=== PATIENT | female | born 1955 | race Caucasian/White ===

== ENCOUNTER 2017-02-09 00:36 | Inpatient (IN) | payer SELFPAY ==
[~2017-02-09] VITALS: Ht 163.8 cm; Wt 84.0 kg
[~2017-02-09 00:36] MED LIST: AMOX500C PO; DOCU100C5 PO; LEVO50TA5 PO; LISI1TAB7 PO; OXYC1TAB8 PO; POLY17PO29 PO; PROC10TA57 PO; ZOLP5TAB PO
[2017-02-09 01:22] LABS: BILIRUBIN,URINE NEGATIVE (NEG); GLUCOSE,URINE NEGATIVE (NEG); NITRITE,URINE NEGATIVE (NEG); PH,URINE 7.5; PROTEIN,URINE NEGATIVE (NEG-TRACE)
[2017-02-09 01:22] LABS: BASO # 0.1 x10^3/uL (0.0-0.2); BASO % 1 % (0-3); EOS % 3 % (0-3); HEMATOCRIT 39.2 % (36.0-47.0); HEMOGLOBIN 12.7 g/dL (12.0-15.5); LYMPH # 2.6 x10^3/uL (1.0-4.8); LYMPH % 16 % (24-48); MEAN CORPUSCULAR HEMOGLOBIN 28 pg (25-35); MEAN CORPUSCULAR HGB CONC 33 g/dL (31-37); MEAN CORPUSCULAR VOLUME 85 fL (79-100); MONO % 6 % (0-9); NEUT % 75 % (31-73); PLATELET COUNT 587 x10^3/uL (140-400); RED BLOOD COUNT 4.61 x10^6/uL (3.50-5.40); RED CELL DISTRIBUTION WIDTH 17.4 % (11.5-14.5); WHITE BLOOD COUNT 16.6 x10^3/uL (4.0-11.0)
[2017-02-09 01:30] LABS: CALCIUM 8.9 mg/dL (8.5-10.1); CREATININE 0.7 mg/dL (0.6-1.0); GFR 85.6; POTASSIUM 4.1 mmol/L (3.5-5.1)
[2017-02-09] MEDS ORDERED: ONDANSETRON PF 4 MG/2 ML VIAL. IV ONE (01:30)
[2017-02-09] MEDS ORDERED: IV NORMAL SALINE 1000ML BAG 1,000 ML IV ONE (01:30)
[2017-02-09 01:33] LABS: BACTERIA,URINE FEW /HPF (0-FEW); RBC,URINE OCC /HPF (0-2); SQUAMOUS EPITHELIAL CELL,UR MOD /LPF
[2017-02-09 01:36] LABS: ALBUMIN 3.4 g/dL (3.4-5.0); ALBUMIN/GLOBULIN RATIO 1.1 (1.0-1.7); TOTAL BILIRUBIN 0.5 mg/dL (0.2-1.0); TOTAL PROTEIN 6.6 g/dL (6.4-8.2)
[2017-02-09] MEDS: fentaNYL PF VIAL 100 MCG/2 ML VIAL IV PRN ×2 (01:38→01:59)
[2017-02-09] MEDS ORDERED: CONTRAST GIVEN MC PRN (01:45)
[2017-02-09] MEDS ORDERED: IOHEXOL 300 MG/ML 75 ML VIAL IV ONE (01:45)
--- NOTE | 2017-02-09 01:47 | RAD ---
CT abdomen and pelvis with contrast Indication: Abdominal pain status post colectomy on 01/26/2017. Axial imaging through the abdomen pelvis was performed after the administration of intravenous contrast. No prior studies are available for comparison. The lung bases are clear. No discrete liver mass is detected. The gallbladder is surgically absent. The pancreas and spleen are unremarkable. No adrenal mass is identified. The kidneys are unremarkable. Aorta and iliac vessels are heavily calcified but not aneurysmal. There appear to be postsurgical changes of a right and transverse colectomy. The descending colon as well as the sigmoid colon appear to be present and decompressed. There appears to be an anastomoses in the left upper abdomen. There appear to be diffusely dilated and fluid-filled small bowel loops. There is moderate fluid-filled distention of the stomach. No free fluid is seen. No fluid collection is identified to suggest abscess. There is no free air. No pneumatosis is identified. Impression: Postsurgical changes of right and transverse colectomy. There are diffusely dilated fluid-filled small bowel loops and stomach traced to the level of the anastomosis in the left abdomen. The possibility of an anastomotic stricture cannot be entirely excluded. No definite abscess or free air is detected. Electronically signed by: Antony Tony MD (Feb 09, 2017 01:45:49)
[2017-02-09] MEDS ORDERED: ONDANSETRON PF 4 MG/2 ML VIAL. IV PRN (02:45)
[2017-02-09] MEDS ORDERED: IV NORMAL SALINE 1000ML BAG 1,000 ML IV SCH ×3 (02:45→20:00)
[2017-02-09 03:45] VITALS: BP 154/55
[2017-02-09] MEDS: MORPHINE SULFATE 4 MG/ML DISP.SYRIN. IV PRN ×4 (03:55→20:24)
--- NOTE | 2017-02-09 04:36 | PHYS DOC ---
Past Medical History Past Medical History: Cancer, Hypertension Additional Past Medical Histor: thyroid disease, AML "survivor", STAGE 4 COLON CA Past Surgical History: Appendectomy, Cholecystectomy, Hysterectomy, Tonsillectomy Additional Past Surgical Histo: BOWEL RESECTION Alcohol Use: None Drug Use: None Adult General Chief Complaint Chief Complaint: NAUSEA/VOMITING/DIARRHA HPI HPI Patient is a 61 year old female who presents with abdominal pain. The patient is status post partial colectomy by Dr. Balderas on 01/27. She complains of severe right-sided abdominal pain associated with too many episodes of vomiting to quantify. States she is unable to tolerate any oral intake and has severe weakness diffusely. Denies fevers or chills, hematemesis, hematochezia or melena , diarrhea, dysuria or hematuria. Has not had bowel movement since time of hospital discharge. Surgery performed for colon cancer, has not yet undergone any chemotherapy or radiation. Also has history of appendectomy, cholecystectomy , hysterectomy. PCP is Dr. Smith. Review of Systems Review of Systems Constitutional: Denies fever or chills Eyes: Denies change in visual acuity HENT: Denies nasal congestion or sore throat Respiratory: Denies cough or shortness of breath Cardiovascular: Denies chest pain or edema GI: Reports abdominal pain, nausea, vomiting, denies bloody stools or diarrhea : Denies dysuria or hematuria Musculoskeletal: Denies back pain or joint pain Integument: Denies rash or skin lesions Neurologic: Denies headache, focal weakness or sensory changes Current Medications Current Medications Current Medications Medications (Trade) Dose Ordered Sig/Nneka Start Time Stop Time Status Last Admin Dose Admin Fentanyl Citrate (Fentanyl 2ml Vial) 50 mcg PRN Q15MIN PRN 02/09/17 01:30 02/10/17 01:29 02/09/17 01:59 50 MCG Info (Do NOT chart on this entry -- for MONITORING) 1 each PRN DAILY PRN 02/09/17 01:45 02/11/17 01:44 Iohexol (Omnipaque 300 Mg/ml) 75 ml 1X ONCE 02/09/17 01:45 02/09/17 01:46 DC 02/09/17 01:36 75 ML Ondansetron HCl (Zofran) 4 mg 1X ONCE 02/09/17 01:30 02/09/17 01:31 DC 02/09/17 01:38 4 MG Sodium Chloride (Iv Sodium Chloride 0.9% 1000ml Bag) 1,000 ml @ 1,000 mls/hr 1X ONCE 02/09/17 01:30 02/09/17 02:29 DC 02/09/17 01:38 1,000 MLS/HR Allergies Allergies Allergies Coded Allergies Type Severity Reaction Last Updated Verified sulfamethoxazole Allergy Mild GI UPSET 01/27/17 Yes trimethoprim Allergy Mild GI UPSET 01/27/17 Yes Physical Exam Physical Exam Constitutional: Well developed, well nourished, appears uncomfortable and ill HENT: Normocephalic, atraumatic, bilateral external ears normal, oropharynx dry , nose normal. Eyes: conjunctiva normal, no discharge. Neck: supple, no stridor. Cardiovascular: RRR, no murmurs, no edema. Lungs & Thorax: LCTAB, no wheezing, no respiratory distress. Abdomen: Hypoactive bowel sounds, soft, mild diffuse tenderness, greatest to right upper and right lower quadrant, voluntary guarding present throughout the abdomen, no rebound tenderness, no masses or pulsatile masses, nondistended. Midline abdominal incision is clean, dry, intact, no erythema, warmth, or swelling, moderate amount of serous drainage from the inferior portion of the incision Skin: Warm, dry, no erythema, no rash. Back: No CVA tenderness. Extremities: No tenderness, no edema. Neurologic: Alert and oriented X 3, no focal deficits noted. Psychologic: Affect normal, judgement normal, mood normal. Current Patient Data Vital Signs Vital Signs Date Time Temp Pulse Resp B/P Pulse Ox O2 Delivery O2 Flow Rate FiO2 02/09/17 02:07 70 23 147/68 91 Room Air 02/09/17 01:04 97.9 97.9 Lab Values Laboratory Tests Test 02/09/17 00:43 02/09/17 00:56 Urine Collection Type Unknown Urine Color Yellow Urine Clarity Clear Urine pH 7.5 Urine Specific [place] 1.015 Urine Protein Negativemg/dL (NEG-TRACE) Urine Glucose (UA) Negativemg/dL (NEG) Urine Ketones (Stick) Tracemg/dL (NEG) Urine Blood Negative (NEG) Urine Nitrite Negative (NEG) Urine Bilirubin Negative (NEG) Urine Urobilinogen Dipstick 1.0mg/dL (0.2 mg/dL) Urine Leukocyte Esterase Negative (NEG) Urine RBC Occ/HPF (0-2) Urine WBC 5-10/HPF (0-4) Urine Squamous Epithelial Cells Mod/LPF Urine Bacteria Few/HPF (0-FEW) Urine Mucus Mod/LPF White Blood Count 16.6x10^3/uL (4.0-11.0) H Red Blood Count 4.61x10^6/uL (3.50-5.40) Hemoglobin 12.7g/dL (12.0-15.5) Hematocrit 39.2% (36.0-47.0) Mean Corpuscular Volume 85fL (79-100) Mean Corpuscular Hemoglobin 28pg (25-35) Mean Corpuscular Hemoglobin Concent 33g/dL (31-37) Red Cell Distribution Width 17.4% (11.5-14.5) H Platelet Count 587x10^3/uL (140-400) H Neutrophils (%) (Auto) 75% (31-73) H Lymphocytes (%) (Auto) 16% (24-48) L Monocytes (%) (Auto) 6% (0-9) Eosinophils (%) (Auto) 3% (0-3) Basophils (%) (Auto) 1% (0-3) Neutrophils # (Auto) 12.4x10^3uL (1.8-7.7) H Lymphocytes # (Auto) 2.6x10^3/uL (1.0-4.8) Monocytes # (Auto) 0.9x10^3/uL (0.0-1.1) Eosinophils # (Auto) 0.5x10^3/uL (0.0-0.7) Basophils # (Auto) 0.1x10^3/uL (0.0-0.2) Sodium Level 135mmol/L (136-145) L Potassium Level 4.1mmol/L (3.5-5.1) Chloride Level 96mmol/L (98-107) L Carbon Dioxide Level 29mmol/L (21-32) Anion Gap 10 (6-14) Blood Urea Nitrogen 18mg/dL (7-20) Creatinine 0.7mg/dL (0.6-1.0) Estimated GFR (Cockcroft-Gault) 85.6 BUN/Creatinine Ratio 26 (6-20) H Glucose Level 101mg/dL (70-99) H Lactic Acid Level 1.4mmol/L (0.4-2.0) Calcium Level 8.9mg/dL (8.5-10.1) Total Bilirubin 0.5mg/dL (0.2-1.0) Aspartate Amino Transferase (AST) 27U/L (15-37) Alanine Aminotransferase (ALT) 48U/L (14-59) Alkaline Phosphatase 70U/L (46-116) Troponin I Quantitative < 0.017ng/mL (0.000-0.055) Total Protein 6.6g/dL (6.4-8.2) Albumin 3.4g/dL (3.4-5.0) Albumin/Globulin Ratio 1.1 (1.0-1.7) Lipase 66U/L (73-393) L Laboratory Tests 02/09/17 00:56 Laboratory Tests 02/09/17 00:56 EKG EKG Interpreted by me: Normal sinus rhythm rate 80, no acute ST or T wave changes, normal intervals, PVCs, significant artifact throughout [] Radiology/Procedures Radiology/Procedures PROCEDURE: CT ABD PELV W/ IV CONTRST ONLY CT abdomen and pelvis with contrast Indication: Abdominal pain status post colectomy on 01/26/2017. Axial imaging through the abdomen pelvis was performed after the administration of intravenous contrast. No prior studies are available for comparison. The lung bases are clear. No discrete liver mass is detected. The gallbladder is surgically absent. The pancreas and spleen are unremarkable. No adrenal mass is identified. The kidneys are unremarkable. Aorta and iliac vessels are heavily calcified but not aneurysmal. There appear to be postsurgical changes of a right and transverse colectomy. The descending colon as well as the sigmoid colon appear to be present and decompressed. There appears to be an anastomoses in the left upper abdomen. There appear to be diffusely dilated and fluid-filled small bowel loops. There is moderate fluid-filled distention of the stomach. No free fluid is seen. No fluid collection is identified to suggest abscess. There is no free air. No pneumatosis is identified. Impression: Postsurgical changes of right and transverse colectomy. There are diffusely dilated fluid-filled small bowel loops and stomach traced to the level of the anastomosis in the left abdomen. The possibility of an anastomotic stricture cannot be entirely excluded. No definite abscess or free air is detected. Electronically signed by: Antony Tony MD (Feb 09, 2017 01:45:49) DICTATED and SIGNED BY: ANTONY TONY MD DATE: 02/09/17 0145[] Course & Med Decision Making Course & Med Decision Making Pertinent Labs and Imaging studies reviewed. (See chart for details) The patient presents with abdominal pain and vomiting postoperatively. Gave IV fluids, Zofran, pain medication. She was able to rest slightly more comfortably. Obtained labs which show leukocytosis. Obtained CT of the abdomen and pelvis which shows possible anastomotic stricture. Consulted with Dr. Mayes on-call for general surgery who recommends placement of NG tube and keep nothing by mouth, will consult in the morning. Discussed results with the patient who agrees with plan for admission. NG tube placed by RN. Discussed with Dr. kemp who agrees to admit to inpatient status. The patient is admitted in stable condition. [] Dragon Disclaimer Dragon Disclaimer This electronic medical record was generated, in whole or in part, using a voice recognition dictation system. Departure Departure Impression: Primary Impression: Postoperative abdominal pain Additional Impressions: Colon cancer Leukocytosis Disposition: ADMITTED INPATIENT Admitting Physician: Cassandra Kemp Condition: STABLE Referrals: ZEHRA SMITH (PCP) Problem Qualifiers SAMMIE TARIQ MD Feb 09, 2017 04:36
--- NOTE | 2017-02-09 06:12 | EKG ---
[facility] [address] [place] [address] Test Date: 2017-02-09 Test Time: 00:59:58 Pat Name: CATALINO COBOS Department: Room: 2 Gender: F [employer] Work[employer]: : 1955 Requested By: SAMMIE TARIQ Order Number: [id number] Reading MD: Vane Porter Measurements Intervals [place] Rate: 80 P: 36 DC: 136 QRS: 35 QRSD: 80 T: 18 QT: 410 QTc: 477 Interpretive Statements SINUS RHYTHM QRS(T) CONTOUR ABNORMALITY CONSISTENT WITH SEPTAL INFARCT AGE UNDETERMINED Electronically Signed On 02-10-2017 17:29:23 CDT by Vane Porter
[2017-02-09 07:10] VITALS: BP 165/64
[2017-02-09] MEDS: FAMOTIDINE 20 MG/2 ML VIAL IVP SCH ×2 (08:06→22:50)
[2017-02-09] MEDS: LEVOTHYROXINE SODIUM 25 MCG in IV NORMAL SALINE 50ML 5 ML IVP SCH (08:35)
--- NOTE | 2017-02-09 10:06 | PDOC1 ---
History and Physical Date of Admission Date of Admission DATE: 02/09/17 TIME: 10:03 Identification/Chief Complaint Chief Complaint vomiting, abd pain Problems: Source Source: Chart review, Patient History of Present Illness History of Present Illness 61 y.o female who was just dcd yesterday after having colon resection for Stage IV colon cancer, with mesenteric involvement, extensive omental caking, diffuse metastasis throughout the peritoneal cavity, comes back in bec of emesis,multiple times at home, abd pain, GS called in, recommended NGT and is currently suctioning blackish gastric aspirate Pt looks uncomfortable from NGT but not in distress Imaging I jason reviewed: PROCEDURE: CT ABD PELV W/ IV CONTRST ONLY CT abdomen and pelvis with contrast Indication: Abdominal pain status post colectomy on 01/26/2017. Axial imaging through the abdomen pelvis was performed after the administration of intravenous contrast. No prior studies are available for comparison. The lung bases are clear. No discrete liver mass is detected. The gallbladder is surgically absent. The pancreas and spleen are unremarkable. No adrenal mass is identified. The kidneys are unremarkable. Aorta and iliac vessels are heavily calcified but not aneurysmal. There appear to be postsurgical changes of a right and transverse colectomy. The descending colon as well as the sigmoid colon appear to be present and decompressed. There appears to be an anastomoses in the left upper abdomen. There appear to be diffusely dilated and fluid-filled small bowel loops. There is moderate fluid-filled distention of the stomach. No free fluid is seen. No fluid collection is identified to suggest abscess. There is no free air. No pneumatosis is identified. Impression: Postsurgical changes of right and transverse colectomy. There are diffusely dilated fluid-filled small bowel loops and stomach traced to the level of the anastomosis in the left abdomen. The possibility of an anastomotic stricture cannot be entirely excluded. No definite abscess or free air is detected. Electronically signed by: Antony Tony MD (Feb 09, 2017 01:45:49) Past Medical History Cardiovascular: HTN Pulmonary: No pertinent hx GI: No pertinent hx Heme/Onc: Cancer Psych: Other Renal/: No pertinent hx Endocrine: Hypothyroidism Past Surgical History Past Surgical History: Colon Resection Family History Family History: No Significant Social History Smoke: No ALCOHOL: none Drugs: None Current Problem List Problem List Problems Medical Problems: (1) Colon cancer Status: Acute (2) Leukocytosis Status: Acute (3) Postoperative abdominal pain Status: Acute Problems: Current Medications Current Medications Current Medications Sodium Chloride (Iv Sodium Chloride 0.9% 1000ml Bag) 1,000 ml @ 1,000 mls/hr 1X ONCE IV Last administered on 02/09/17 01:38; Start 02/09/17 at 01:30; Stop 02/09/17 at 02:29; Status DC Ondansetron HCl (Zofran) 4 mg 1X ONCE IV Last administered on 02/09/17 01:38 ; Start 02/09/17 at 01:30; Stop 02/09/17 at 01:31; Status DC Fentanyl Citrate (Fentanyl 2ml Vial) 50 mcg PRN Q15MIN PRN IV PAIN GREATER THAN 3/10 Last administered on 02/09/17 01:59; Start 02/09/17 at 01:30; Stop at 07:41; Status DC Iohexol (Omnipaque 300 Mg/ml) 75 ml 1X ONCE IV Last administered on 02/09/17 01:36; Start 02/09/17 at 01:45; Stop 02/09/17 at 01:46; Status DC Info (Do NOT chart on this entry -- for MONITORING) 1 each PRN DAILY PRN MC SEE COMMENTS; Start 02/09/17 at 01:45; Stop 02/11/17 at 01:44 Ondansetron HCl (Zofran) 4 mg PRN Q8HRS PRN IV NAUSEA/VOMITING Last administered on 02/09/17 03:55; Start 02/09/17 at 02:45; Stop 02/09/17 at 07:41 ; Status DC Morphine Sulfate 4 mg 4 mg PRN Q2HR PRN IV PAIN Last administered on 02/09/17 08:02; Start 02/09/17 at 02:45; Stop 02/10/17 at 02:44 Sodium Chloride (Iv Sodium Chloride 0.9% 1000ml Bag) 1,000 ml @ 125 mls/hr Q8H IV Last administered on 02/09/17 03:55; Start 02/09/17 at 02:45; Stop at 02:44 Ondansetron HCl (Zofran) 4 mg PRN Q6HRS PRN IV NAUSEA/VOMITING; Start 02/09/17 at 07:40 Fentanyl Citrate (Fentanyl 2ml Vial) 50 mcg PRN Q2HR PRN IV PAIN; Start at 07:45 Famotidine 20 mg 20 mg BID IVP Last administered on 02/09/17 08:06; Start at 09:00 Levothyroxine Sodium/Sodium Chloride (Synthroid/Iv Sodium Chloride 0.9% 50ml) 5 ml @ 100 mls/hr DAILY IVP Last administered on 02/09/17 08:35; Start 02/09/17 at 09:00 Active Scripts Active Compazine (Prochlorperazine Maleate) 10 Mg Tablet 10 Mg PO Q8HRS Docusate Sodium 100 Mg Capsule 100 Mg PO PRN DAILY PRN Oxycodon-Acetaminophen 7.5-325 (Oxycodone Hcl/Acetaminophen) 1 Each Tablet 1 Tab PO PRN Q4HRS PRN Miralax (Polyethylene Glycol 3350) 17 Gm Powd.pack 17 Gm PO PRN DAILY PRN Reported Ambien (Zolpidem Tartrate) 5 Mg Tablet 1 Tab PO QHS Lisinopril-Hctz 20-25 Mg Tab (Lisinopril/Hydrochlorothiazide) 1 Each Tablet 1 Tab PO DAILY Levothyroxine Sodium 50 Mcg Tablet 1 Tab PO DAILY Allergies Allergies: Coded Allergies: sulfamethoxazole (Verified Allergy, Mild, GI UPSET, 01/27/17) trimethoprim (Verified Allergy, Mild, GI UPSET, 01/27/17) ROS General: No: Appetite, Chills, Fatigue, Malaise, Night Sweats, Other PSYCHOLOGICAL ROS: No: Anxiety, Behavioral Disorder, Concentration difficultie , Decreased libido, Depression, Disorientation, Hallucinations, Hostility, Irritablity, Memory difficulties, Mood Swings, Obsessive thoughts, Other, Physical abuse, Sexual abuse, Sleep disturbances, Suicidal ideation Eyes: No Blurry vision, No Decreased vision, No Double vision, No Dry eyes, No Excessive tearing, No Eye Pain, No Itchy Eyes, No Loss of vision, No Other, No Photophobia, No Scotomata, No Uses contacts, No Uses glasses HEENT: No: Epistaxis, Heacaches, Hearing change, Nasal congestion, Nasal discharge, Oral lesions, Other, Sinus pain, Sneezing, Snoring, Sore Throat, Tinnitus, Vertigo, Visual Changes, Vocal changes ALLERGY AND IMMUNOLOGY: No: Hives, Insect Bite Sensitivity, Itchy/Watery Eyes, Nasal Congestion, Other, Post Nasal Drip, Seasonal Allergies Hematological and Lymphatic: No: Bleeding Problems, Blood Clots, Blood Transfusions, Brusing, Night Sweats, Other, Pallor, Swollen Lymph Nodes ENDOCRINE: No: Breast Changes, Galactorrhea, Hair Pattern Changes, Hot Flashes , Malaise/lethargy, Mood Swings, Other, Palpitations, Polydipsia/polyuria, Skin Changes, Temperature Intolerance, Unexpected Weight Changes Breast: No New/Changing Breast Lumps, No Nipple changes, No Nipple discharge, No Other Respiratory: No: Cough, Hemoptysis, Orthopnea, Other, Pleuritic Pain, SOB with excertion, Shortness of breath, Sputum Changes, Stridor, Tachypnea, Wheezing Cardiovascular: No Chest Pain, No Edema, No Lt Headedness, No Orthopnea, No Other, No Palpitations, No Paroxysmal Noc. Dyspnea Gastrointestinal: Yes Abdominal Pain, Yes Nausea, Yes Vomiting Genitourinary: No , No , No , No , No , No , No , No Discharge, No Dysuria, No Flank Pain, No Frequency, No Hematuria, No Incontinence, No Other, No Pain, No Retention, No Urgency Musculoskeletal: No Gait Disturbance, No Joint Pain, No Joint Stiffness, No Joint Swelling, No Muscle Pain, No Muscular Weakness, No Other, No Pain In:, No Swelling In: Neurological: No Behavorial Changes, No Bowel/Bladder ControlChng, No Confusion , No Dizziness, No Gait Disturbance, No Headaches, No Impaired Coord/balance, No Memory Loss, No Numbness/Tingling, No Other, No Seizures, No Speech Problems , No Tremors, No Visual Changes, No Weakness Skin: No Acne, No Dry Skin, No Eczema, No Hair Changes, No Lumps, No Mole Changes, No Mottling, No Nail Changes, No Other, No Pruritus, No Rash, No Skin Lesion Changes Physical Exam General: No acute distress, Other (looks uncomfortable from NGT) Lungs: Clear to auscultation, Normal air movement Heart: S1S2, RRR, no thrills, no rubs, no gallops, no murmurs Cardiovascular: S1, S2 Breasts: Normal Abdomen: Normal bowel sounds, Soft, No tenderness, No hepatosplenomegaly, No masses, Other (tenderness, wound healing well, no rebound or guarding, NGT draining) Rectal Exam: not examined PELVIC: Nml ext genitalia Extremities: No clubbing, No cyanosis, No edema, Normal pulses, No tenderness/ swelling Skin: No rashes, No breakdown, No significant lesion Neuro: Normal gait, Normal speech, Strength at 5/5 X4 ext, Normal tone, Sensation intact, Cranial nerves 3-12 NL, Reflexes 2+ Psych/Mental Status: Mental status NL, Mood NL Vitals Vitals Vital Signs Date Time Temp Pulse Resp B/P Pulse Ox O2 Delivery O2 Flow Rate FiO2 02/09/17 08:35 16 02/09/17 08:02 Room Air 02/09/17 07:10 98.2 79 165/64 94 98.2 Labs Labs Laboratory Tests Test 02/09/17 00:43 02/09/17 00:56 Urine Collection Type Unknown Urine Color Yellow Urine Clarity Clear Urine pH 7.5 Urine Specific [place] 1.015 Urine Protein Negativemg/dL (NEG-TRACE) Urine Glucose (UA) Negativemg/dL (NEG) Urine Ketones (Stick) Tracemg/dL (NEG) Urine Blood Negative (NEG) Urine Nitrite Negative (NEG) Urine Bilirubin Negative (NEG) Urine Urobilinogen Dipstick 1.0mg/dL (0.2 mg/dL) Urine Leukocyte Esterase Negative (NEG) Urine RBC Occ/HPF (0-2) Urine WBC 5-10/HPF (0-4) Urine Squamous Epithelial Cells Mod/LPF Urine Bacteria Few/HPF (0-FEW) Urine Mucus Mod/LPF White Blood Count 16.6x10^3/uL (4.0-11.0) Red Blood Count 4.61x10^6/uL (3.50-5.40) Hemoglobin 12.7g/dL (12.0-15.5) Hematocrit 39.2% (36.0-47.0) Mean Corpuscular Volume 85fL (79-100) Mean Corpuscular Hemoglobin 28pg (25-35) Mean Corpuscular Hemoglobin Concent 33g/dL (31-37) Red Cell Distribution Width 17.4% (11.5-14.5) Platelet Count 587x10^3/uL (140-400) Neutrophils (%) (Auto) 75% (31-73) Lymphocytes (%) (Auto) 16% (24-48) Monocytes (%) (Auto) 6% (0-9) Eosinophils (%) (Auto) 3% (0-3) Basophils (%) (Auto) 1% (0-3) Neutrophils # (Auto) 12.4x10^3uL (1.8-7.7) Lymphocytes # (Auto) 2.6x10^3/uL (1.0-4.8) Monocytes # (Auto) 0.9x10^3/uL (0.0-1.1) Eosinophils # (Auto) 0.5x10^3/uL (0.0-0.7) Basophils # (Auto) 0.1x10^3/uL (0.0-0.2) Sodium Level 135mmol/L (136-145) Potassium Level 4.1mmol/L (3.5-5.1) Chloride Level 96mmol/L (98-107) Carbon Dioxide Level 29mmol/L (21-32) Anion Gap 10 (6-14) Blood Urea Nitrogen 18mg/dL (7-20) Creatinine 0.7mg/dL (0.6-1.0) Estimated GFR (Cockcroft-Gault) 85.6 BUN/Creatinine Ratio 26 (6-20) Glucose Level 101mg/dL (70-99) Lactic Acid Level 1.4mmol/L (0.4-2.0) Calcium Level 8.9mg/dL (8.5-10.1) Total Bilirubin 0.5mg/dL (0.2-1.0) Aspartate Amino Transf (AST/SGOT) 27U/L (15-37) Alanine Aminotransferase (ALT/SGPT) 48U/L (14-59) Alkaline Phosphatase 70U/L (46-116) Troponin I Quantitative < 0.017ng/mL (0.000-0.055) Total Protein 6.6g/dL (6.4-8.2) Albumin 3.4g/dL (3.4-5.0) Albumin/Globulin Ratio 1.1 (1.0-1.7) Lipase 66U/L (73-393) Laboratory Tests Test 02/09/17 00:43 02/09/17 00:56 Urine Collection Type Unknown Urine Color Yellow Urine Clarity Clear Urine pH 7.5 Urine Specific [place] 1.015 Urine Protein Negativemg/dL (NEG-TRACE) Urine Glucose (UA) Negativemg/dL (NEG) Urine Ketones (Stick) Tracemg/dL (NEG) Urine Blood Negative (NEG) Urine Nitrite Negative (NEG) Urine Bilirubin Negative (NEG) Urine Urobilinogen Dipstick 1.0mg/dL (0.2 mg/dL) Urine Leukocyte Esterase Negative (NEG) Urine RBC Occ/HPF (0-2) Urine WBC 5-10/HPF (0-4) Urine Squamous Epithelial Cells Mod/LPF Urine Bacteria Few/HPF (0-FEW) Urine Mucus Mod/LPF White Blood Count 16.6x10^3/uL (4.0-11.0) Red Blood Count 4.61x10^6/uL (3.50-5.40) Hemoglobin 12.7g/dL (12.0-15.5) Hematocrit 39.2% (36.0-47.0) Mean Corpuscular Volume 85fL (79-100) Mean Corpuscular Hemoglobin 28pg (25-35) Mean Corpuscular Hemoglobin Concent 33g/dL (31-37) Red Cell Distribution Width 17.4% (11.5-14.5) Platelet Count 587x10^3/uL (140-400) Neutrophils (%) (Auto) 75% (31-73) Lymphocytes (%) (Auto) 16% (24-48) Monocytes (%) (Auto) 6% (0-9) Eosinophils (%) (Auto) 3% (0-3) Basophils (%) (Auto) 1% (0-3) Neutrophils # (Auto) 12.4x10^3uL (1.8-7.7) Lymphocytes # (Auto) 2.6x10^3/uL (1.0-4.8) Monocytes # (Auto) 0.9x10^3/uL (0.0-1.1) Eosinophils # (Auto) 0.5x10^3/uL (0.0-0.7) Basophils # (Auto) 0.1x10^3/uL (0.0-0.2) Sodium Level 135mmol/L (136-145) Potassium Level 4.1mmol/L (3.5-5.1) Chloride Level 96mmol/L (98-107) Carbon Dioxide Level 29mmol/L (21-32) Anion Gap 10 (6-14) Blood Urea Nitrogen 18mg/dL (7-20) Creatinine 0.7mg/dL (0.6-1.0) Estimated GFR (Cockcroft-Gault) 85.6 BUN/Creatinine Ratio 26 (6-20) Glucose Level 101mg/dL (70-99) Lactic Acid Level 1.4mmol/L (0.4-2.0) Calcium Level 8.9mg/dL (8.5-10.1) Total Bilirubin 0.5mg/dL (0.2-1.0) Aspartate Amino Transf (AST/SGOT) 27U/L (15-37) Alanine Aminotransferase (ALT/SGPT) 48U/L (14-59) Alkaline Phosphatase 70U/L (46-116) Troponin I Quantitative < 0.017ng/mL (0.000-0.055) Total Protein 6.6g/dL (6.4-8.2) Albumin 3.4g/dL (3.4-5.0) Albumin/Globulin Ratio 1.1 (1.0-1.7) Lipase 66U/L (73-393) VTE Prophylaxis Ordered VTE Prophylaxis Devices: Yes VTE Pharmacological Prophylaxi: Yes Assessment/Plan Assessment/Plan 1. Post op emesis, abd pain, possibe ileus, The possibility of an anastomotic stricture cannot be entirely excluded 2. Stage IV colon cancer, with mesenteric involvement, extensive omental caking, diffuse metastasis throughout the peritoneal cavity 3. SIRS POA< no sepsis 4. mod CPM 5. Anemia of malignancy Plan NPO, dec IVF to 100c./hr GS consulted NGT PPI IV Hold PO meds Jamin RN and pt KARL GONZALEZ MD Feb 09, 2017 10:06
--- NOTE | 2017-02-09 10:26 | ACF ---
Admit Criteria Forms Admit Criteria Forms Admit Criteria Forms ABDOMINAL PAIN Clinical Indications for Admission to Inpatient Care (Place 'X' for any and all applicable criteria): Admission is indicated for ANY ONE of the following(1)(2)(3)(4)(5): [X]I. Inpatient admission required rather than observation care (Also use Abdominal Pain: Observation Care, as appropriate) because of ANY ONE of the following: [ ]a) Severe pain requiring acute inpatient management [X]b) Identification of etiology/finding that requires inpatient care (eg, aortic dissection, free air) [ ]c) Absent bowel sounds with complete ileus(6) [ ]d) Suspected toxic megacolon [ ]e) Severe electrolyte abnormalities requiring inpatient care [ ]f) High fever or infection requiring inpatient admission as indicated by ANY ONE of following(7)(8): [ ] i) Appropriate outpatient or observational care antimicrobial treatment unavailable, not effective, or not feasible [ ] ii) Documented bacteremia [ ] iii) Temperature > 104.9 degrees F (oral) [ ] iv) T >103.1 F (oral) or < 96.8 F(rectal) that does not respond to all emergency treatment measures [ ]g) Signs of intestinal obstruction [B] [ ]h) Hemodynamic instability [ ]i) IV fluid to replace significant ongoing losses (greater than 3 L/m2 per day) (12)(13) [ ]j) Percutaneous or open drainage (eg, abscess, biliary tract ) procedures [ ]k) Parenteral nutrition regimen that must be implemented on inpatient basis [ ]l) Other condition,treatment or monitoring requiring inpatient admission. [ ]II. Peritoneal signs present [ ]III. Surgery needed that cannot be performed on an ambulatory basis. [ ]IV. Evaluation requires patient to not eat or drink for extended period ( eg, more than 24 hours). [ ]V. Contraindications and/or Inappropriate clinical situations for Observational Care in patients with abdominal pain, when ANY ONE of the following is required: [ ]a) Thorough evaluation is required to prevent catastrophic events due to delays in diagnosing (e.g.Mesenteric ischemia) 1,3 [ ]b) Patient with severe pathology or with chronic symptoms unlikely to improve in the ED stay (3) [ ]. General contraindications and/or Inappropriate clinical situations for Observational Care in patients with abdominal pain, when ANY ONE of the following is required: [ ]a) Prediction of prolongation of LOS based on ANY ONE of the following may be considered as a contraindication for observational care 2, 3, 4, 5, 6, 7, 8, 9, 10, 11 [ ]i) Age > 65 yrs. [ ]ii) Patient arriving by ambulance [ ]iii) Patient with high acuity [ ]iv) Patient requiring vital sign monitoring [ ]v) Patient on IV medication [ ]b) Systolic blood pressures 180mmHg 3,12 [ ]c) Patient with altered mental status including delirium and other alteration of consciousness, (3) [ ]d) Patient whose discharge disposition will be to a care home home or rehabilitation home should not be managed in Emergency Department Observation Unit. CMS rule requires 3 days hospital stay before such placement.3,13 [ ]e) Patient with failure to thrive due to broad array of etiologies 3,16,17 [ ]f) Inability to ambulate 3,14 Extended stay beyond goal length of stay may be needed for(2)(3): [ ]a) Persistent abdominal pain with suspected intra-abdominal process [ ]b) Diagnosed condition requiring continued stay (e.g., pancreatitis, complicated diverticulitis) [ ]c) Surgery (e.g., colectomy) The original [employer] content created by [employer] has been revised. The portions of the content which have been revised are identified through the use of italic text or in bold, and [facility] centerGo[facility] Formerly [facility] has neither reviewed nor approved the modified material.All other unmodified content is copyright [employer]. Please see references footnoted in the original [facility]formerly [facility] centerBeehive Industries edition 2016 JORGE L CHRISTIE Feb 09, 2017 10:26
[2017-02-09 11:00] VITALS: BP 142/65
--- NOTE | 2017-02-09 14:49 | PDOC ---
Provider Note Provider Note 61 yo readmitted with n/v and abd distention after colectomy. she is demanding that her ng be removed. she feels much better. no longer feels bloated. no abd pain. +flatus today. i advised against removal of ng but she insists and refuses further tx with ng. will comply with her treatment wish and dc ng. i did tell her that if she gets nauseated/vomits/bloated again, the only tx option is replacing the ng. abd soft nt mild distended alert, oriented. a/p colon cancer. s/p colectomy. suspect edema at anastamosis giving delayed recovery of gi function. cont npo. remove ng at pt's request--i feel she has the right to refuse ng treatment. HALINA NEVILLE MD Feb 09, 2017 14:49
[2017-02-09 15:10] VITALS: BP 158/57
[2017-02-09 19:58] VITALS: BP 126/58
[2017-02-09] MEDS: IV NORMAL SALINE 1000ML BAG 1,000 ML IV SCH (20:18)
[2017-02-09] MEDS: ONDANSETRON PF 4 MG/2 ML VIAL. IV PRN (20:24)
[2017-02-09 23:20] VITALS: BP 146/55
[2017-02-10] MEDS: fentaNYL PF VIAL 100 MCG/2 ML VIAL IV PRN ×4 (03:06→23:14)
[2017-02-10 03:55] LABS: BASO # 0.2 x10^3/uL (0.0-0.2); BASO % 1 % (0-3); EOS % 5 % (0-3); HEMATOCRIT 38.4 % (36.0-47.0); HEMOGLOBIN 12.7 g/dL (12.0-15.5); LYMPH % 23 % (24-48); MEAN CORPUSCULAR HEMOGLOBIN 28 pg (25-35); MEAN CORPUSCULAR HGB CONC 33 g/dL (31-37); MEAN CORPUSCULAR VOLUME 84 fL (79-100); MONO % 9 % (0-9); NEUT % 62 % (31-73); PLATELET COUNT 591 x10^3/uL (140-400); RED BLOOD COUNT 4.59 x10^6/uL (3.50-5.40); RED CELL DISTRIBUTION WIDTH 18.2 % (11.5-14.5)
[2017-02-10 04:16] LABS: CALCIUM 8.7 mg/dL (8.5-10.1); CREATININE 0.8 mg/dL (0.6-1.0); GFR 73.4; POTASSIUM 4.1 mmol/L (3.5-5.1)
[2017-02-10 07:00] VITALS: BP 162/62
[2017-02-10] MEDS: LEVOTHYROXINE SODIUM 25 MCG in IV NORMAL SALINE 50ML 5 ML IVP SCH (10:27)
[2017-02-10] MEDS: FAMOTIDINE 20 MG/2 ML VIAL IVP SCH (10:27)
[2017-02-10] MEDS: IV NORMAL SALINE 1000ML BAG 1,000 ML IV SCH (10:28)
[2017-02-10 11:00] VITALS: BP 155/64
--- NOTE | 2017-02-10 11:26 | RAD ---
AP abdomen radiograph 02/10/2017 Clinical history: Ileus. An AP portable supine digital radiograph of the abdomen/pelvis was obtained. Comparison study is dated 02/04/2017. The hemidiaphragms and lung bases are not included on the radiograph. Surgical clips are seen within the right upper quadrant of the abdomen consistent with a cholecystectomy. Nonspecific air distention of small bowel loops is seen throughout the abdomen which is not definitely changed. The air distention of the colon has improved. The osseous structures are unchanged. Impression: Nonspecific air distention of small bowel loops is seen throughout the abdomen essentially unchanged. The air distention of the colon has improved.
[2017-02-10] MEDS ORDERED: POLYETHYLENE GLYCOL 3350 17 GM PACKET. PO PRN (12:45)
[2017-02-10] MEDS ORDERED: DOCUSATE SODIUM 100 MG CAPSULE. PO PRN (12:45)
--- NOTE | 2017-02-10 12:46 | PDOC ---
PROGRESS NOTES Chief Complaint Chief Complaint 1. Post op emesis, abd pain, possibe ileus, The possibility of an anastomotic stricture cannot be entirely excluded 2. Stage IV colon cancer, with mesenteric involvement, extensive omental caking, diffuse metastasis throughout the peritoneal cavity 3. SIRS POA< no sepsis 4. mod CPM 5. Anemia of malignancy History of Present Illness History of Present Illness NGt out per pt request - yesterday Pt up in bed, looking better Has had 3 BMs today and feels better KUB shows resolution of pathology PLan: Trial fo clears dc IVF Resume pO home meds including synthroid If does well on diet then home rafael Vitals Vitals Vital Signs Date Time Temp Pulse Resp B/P Pulse Ox O2 Delivery O2 Flow Rate FiO2 02/10/17 11:00 98.3 65 20 155/64 97 Room Air 98.3 Physical Exam General: Alert, Oriented X3, Cooperative, No acute distress, Other (looks uncomfortable from NGT) Heart: Regular rate, Normal S1, Normal S2 Lungs: Clear, Other Abdomen: Normal bowel sounds, Soft, No tenderness, No hepatosplenomegaly, No masses, Other (tenderness, wound healing well, no rebound or guarding, NGT draining) Extremities: No clubbing, No cyanosis, No edema, Normal pulses, No tenderness/ swelling Skin: No rashes, No breakdown, No significant lesion Labs LABS Laboratory Tests Test 02/10/17 03:30 White Blood Count 13.0x10^3/uL (4.0-11.0) Red Blood Count 4.59x10^6/uL (3.50-5.40) Hemoglobin 12.7g/dL (12.0-15.5) Hematocrit 38.4% (36.0-47.0) Mean Corpuscular Volume 84fL (79-100) Mean Corpuscular Hemoglobin 28pg (25-35) Mean Corpuscular Hemoglobin Concent 33g/dL (31-37) Red Cell Distribution Width 18.2% (11.5-14.5) Platelet Count 591x10^3/uL (140-400) Neutrophils (%) (Auto) 62% (31-73) Lymphocytes (%) (Auto) 23% (24-48) Monocytes (%) (Auto) 9% (0-9) Eosinophils (%) (Auto) 5% (0-3) Basophils (%) (Auto) 1% (0-3) Neutrophils # (Auto) 8.1x10^3uL (1.8-7.7) Lymphocytes # (Auto) 3.0x10^3/uL (1.0-4.8) Monocytes # (Auto) 1.1x10^3/uL (0.0-1.1) Eosinophils # (Auto) 0.6x10^3/uL (0.0-0.7) Basophils # (Auto) 0.2x10^3/uL (0.0-0.2) Sodium Level 138mmol/L (136-145) Potassium Level 4.1mmol/L (3.5-5.1) Chloride Level 101mmol/L (98-107) Carbon Dioxide Level 28mmol/L (21-32) Anion Gap 9 (6-14) Blood Urea Nitrogen 20mg/dL (7-20) Creatinine 0.8mg/dL (0.6-1.0) Estimated GFR (Cockcroft-Gault) 73.4 Glucose Level 92mg/dL (70-99) Calcium Level 8.7mg/dL (8.5-10.1) Review of Systems Review of Systems neg 14 pt reviewed Assessment and Plan Assessmemt and Plan Problems Medical Problems: (1) Colon cancer Status: Acute (2) Leukocytosis Status: Acute (3) Postoperative abdominal pain Status: Acute Problems: Comment Review of Relevant I have reviewed the following items siena (where applicable) has been applied. Labs Laboratory Tests Test 02/09/17 00:43 02/09/17 00:56 02/10/17 03:30 Urine Collection Type Unknown Urine Color Yellow Urine Clarity Clear Urine pH 7.5 Urine Specific Herrin 1.015 Urine Protein Negativemg/dL (NEG-TRACE) Urine Glucose (UA) Negativemg/dL (NEG) Urine Ketones (Stick) Tracemg/dL (NEG) Urine Blood Negative (NEG) Urine Nitrite Negative (NEG) Urine Bilirubin Negative (NEG) Urine Urobilinogen Dipstick 1.0mg/dL (0.2 mg/dL) Urine Leukocyte Esterase Negative (NEG) Urine RBC Occ/HPF (0-2) Urine WBC 5-10/HPF (0-4) Urine Squamous Epithelial Cells Mod/LPF Urine Bacteria Few/HPF (0-FEW) Urine Mucus Mod/LPF White Blood Count 16.6x10^3/uL (4.0-11.0) 13.0x10^3/uL (4.0-11.0) Red Blood Count 4.61x10^6/uL (3.50-5.40) 4.59x10^6/uL (3.50-5.40) Hemoglobin 12.7g/dL (12.0-15.5) 12.7g/dL (12.0-15.5) Hematocrit 39.2% (36.0-47.0) 38.4% (36.0-47.0) Mean Corpuscular Volume 85fL (79-100) 84fL (79-100) Mean Corpuscular Hemoglobin 28pg (25-35) 28pg (25-35) Mean Corpuscular Hemoglobin Concent 33g/dL (31-37) 33g/dL (31-37) Red Cell Distribution Width 17.4% (11.5-14.5) 18.2% (11.5-14.5) Platelet Count 587x10^3/uL (140-400) 591x10^3/uL (140-400) Neutrophils (%) (Auto) 75% (31-73) 62% (31-73) Lymphocytes (%) (Auto) 16% (24-48) 23% (24-48) Monocytes (%) (Auto) 6% (0-9) 9% (0-9) Eosinophils (%) (Auto) 3% (0-3) 5% (0-3) Basophils (%) (Auto) 1% (0-3) 1% (0-3) Neutrophils # (Auto) 12.4x10^3uL (1.8-7.7) 8.1x10^3uL (1.8-7.7) Lymphocytes # (Auto) 2.6x10^3/uL (1.0-4.8) 3.0x10^3/uL (1.0-4.8) Monocytes # (Auto) 0.9x10^3/uL (0.0-1.1) 1.1x10^3/uL (0.0-1.1) Eosinophils # (Auto) 0.5x10^3/uL (0.0-0.7) 0.6x10^3/uL (0.0-0.7) Basophils # (Auto) 0.1x10^3/uL (0.0-0.2) 0.2x10^3/uL (0.0-0.2) Sodium Level 135mmol/L (136-145) 138mmol/L (136-145) Potassium Level 4.1mmol/L (3.5-5.1) 4.1mmol/L (3.5-5.1) Chloride Level 96mmol/L (98-107) 101mmol/L (98-107) Carbon Dioxide Level 29mmol/L (21-32) 28mmol/L (21-32) Anion Gap 10 (6-14) 9 (6-14) Blood Urea Nitrogen 18mg/dL (7-20) 20mg/dL (7-20) Creatinine 0.7mg/dL (0.6-1.0) 0.8mg/dL (0.6-1.0) Estimated GFR (Cockcroft-Gault) 85.6 73.4 BUN/Creatinine Ratio 26 (6-20) Glucose Level 101mg/dL (70-99) 92mg/dL (70-99) Lactic Acid Level 1.4mmol/L (0.4-2.0) Calcium Level 8.9mg/dL (8.5-10.1) 8.7mg/dL (8.5-10.1) Total Bilirubin 0.5mg/dL (0.2-1.0) Aspartate Amino Transf (AST/SGOT) 27U/L (15-37) Alanine Aminotransferase (ALT/SGPT) 48U/L (14-59) Alkaline Phosphatase 70U/L (46-116) Troponin I Quantitative < 0.017ng/mL (0.000-0.055) Total Protein 6.6g/dL (6.4-8.2) Albumin 3.4g/dL (3.4-5.0) Albumin/Globulin Ratio 1.1 (1.0-1.7) Lipase 66U/L (73-393) Laboratory Tests Test 02/10/17 03:30 White Blood Count 13.0x10^3/uL (4.0-11.0) Red Blood Count 4.59x10^6/uL (3.50-5.40) Hemoglobin 12.7g/dL (12.0-15.5) Hematocrit 38.4% (36.0-47.0) Mean Corpuscular Volume 84fL (79-100) Mean Corpuscular Hemoglobin 28pg (25-35) Mean Corpuscular Hemoglobin Concent 33g/dL (31-37) Red Cell Distribution Width 18.2% (11.5-14.5) Platelet Count 591x10^3/uL (140-400) Neutrophils (%) (Auto) 62% (31-73) Lymphocytes (%) (Auto) 23% (24-48) Monocytes (%) (Auto) 9% (0-9) Eosinophils (%) (Auto) 5% (0-3) Basophils (%) (Auto) 1% (0-3) Neutrophils # (Auto) 8.1x10^3uL (1.8-7.7) Lymphocytes # (Auto) 3.0x10^3/uL (1.0-4.8) Monocytes # (Auto) 1.1x10^3/uL (0.0-1.1) Eosinophils # (Auto) 0.6x10^3/uL (0.0-0.7) Basophils # (Auto) 0.2x10^3/uL (0.0-0.2) Sodium Level 138mmol/L (136-145) Potassium Level 4.1mmol/L (3.5-5.1) Chloride Level 101mmol/L (98-107) Carbon Dioxide Level 28mmol/L (21-32) Anion Gap 9 (6-14) Blood Urea Nitrogen 20mg/dL (7-20) Creatinine 0.8mg/dL (0.6-1.0) Estimated GFR (Cockcroft-Gault) 73.4 Glucose Level 92mg/dL (70-99) Calcium Level 8.7mg/dL (8.5-10.1) Microbiology 02/09/17 Urine Culture - Preliminary, Resulted 02/09/17 Urine Culture Result 1 (WADE) - Preliminary, Resulted Medications Current Medications Sodium Chloride (Iv Sodium Chloride 0.9% 1000ml Bag) 1,000 ml @ 1,000 mls/hr 1X ONCE IV Last administered on 02/09/17 01:38; Start 02/09/17 at 01:30; Stop 02/09/17 at 02:29; Status DC Ondansetron HCl (Zofran) 4 mg 1X ONCE IV Last administered on 02/09/17 01:38 ; Start 02/09/17 at 01:30; Stop 02/09/17 at 01:31; Status DC Fentanyl Citrate (Fentanyl 2ml Vial) 50 mcg PRN Q15MIN PRN IV PAIN GREATER THAN 3/10 Last administered on 02/09/17 01:59; Start 02/09/17 at 01:30; Stop at 07:41; Status DC Iohexol (Omnipaque 300 Mg/ml) 75 ml 1X ONCE IV Last administered on 02/09/17 01:36; Start 02/09/17 at 01:45; Stop 02/09/17 at 01:46; Status DC Info (Do NOT chart on this entry -- for MONITORING) 1 each PRN DAILY PRN MC SEE COMMENTS; Start 02/09/17 at 01:45; Stop 02/11/17 at 01:44 Ondansetron HCl (Zofran) 4 mg PRN Q8HRS PRN IV NAUSEA/VOMITING Last administered on 02/09/17 03:55; Start 02/09/17 at 02:45; Stop 02/09/17 at 07:41 ; Status DC Morphine Sulfate 4 mg 4 mg PRN Q2HR PRN IV PAIN Last administered on 02/09/17 20:24; Start 02/09/17 at 02:45; Stop 02/10/17 at 02:44; Status DC Sodium Chloride (Iv Sodium Chloride 0.9% 1000ml Bag) 1,000 ml @ 125 mls/hr Q8H IV Last administered on 02/09/17 03:55; Start 02/09/17 at 02:45; Stop at 10:13; Status DC Ondansetron HCl (Zofran) 4 mg PRN Q6HRS PRN IV NAUSEA/VOMITING Last administered on 02/09/17 20:24; Start 02/09/17 at 07:40 Fentanyl Citrate (Fentanyl 2ml Vial) 50 mcg PRN Q2HR PRN IV PAIN Last administered on 02/10/17 03:06; Start 02/09/17 at 07:45 Famotidine 20 mg 20 mg BID IVP Last administered on 02/10/17 10:27; Start at 09:00 Levothyroxine Sodium 25 mcg/ Sodium Chloride 5 ml @ 100 mls/hr DAILY IVP Last administered on 02/10/17 10:27; Start 02/09/17 at 09:00 Sodium Chloride 1,000 ml @ 100 mls/hr Q10H IV ; Start 02/09/17 at 10:12; Stop 02/09/17 at 10:17; Status DC Sodium Chloride 1,000 ml @ 100 mls/hr Q10H IV ; Start 02/09/17 at 20:00; Stop 02/09/17 at 19:30; Status Cancel Sodium Chloride (Iv Sodium Chloride 0.9% 1000ml Bag) 1,000 ml @ 100 mls/hr Q10H IV Last administered on 02/10/17 10:28; Start 02/09/17 at 20:00 Active Scripts Active Compazine (Prochlorperazine Maleate) 10 Mg Tablet 10 Mg PO Q8HRS Docusate Sodium 100 Mg Capsule 100 Mg PO PRN DAILY PRN Oxycodon-Acetaminophen 7.5-325 (Oxycodone Hcl/Acetaminophen) 1 Each Tablet 1 Tab PO PRN Q4HRS PRN Miralax (Polyethylene Glycol 3350) 17 Gm Powd.pack 17 Gm PO PRN DAILY PRN Reported Ambien (Zolpidem Tartrate) 5 Mg Tablet 1 Tab PO QHS Lisinopril-Hctz 20-25 Mg Tab (Lisinopril/Hydrochlorothiazide) 1 Each Tablet 1 Tab PO DAILY Levothyroxine Sodium 50 Mcg Tablet 1 Tab PO DAILY Vitals/I & O Vital Sign - Last 24 Hours 02/09/17 02/09/17 02/09/17 02/09/17 14:27 15:10 19:58 20:00 Temp 98.3 98.3 98.3 98.3 Pulse 70 78 Resp 18 16 B/P 158/57 126/58 Pulse Ox 94 94 94 O2 Delivery Room Air Room Air Room Air 02/09/17 02/09/17 02/09/17 02/10/17 20:24 22:49 23:20 03:06 Temp 97.7 97.7 Pulse 59 Resp 16 B/P 146/55 Pulse Ox 94 O2 Delivery Room Air Room Air Room Air Room Air 02/10/17 02/10/17 02/10/17 02/10/17 03:56 03:58 07:00 07:48 Temp 97.9 97.9 Pulse 59 Resp 20 B/P 162/62 Pulse Ox 97 O2 Delivery Room Air Room Air Room Air Room Air 02/10/17 11:00 Temp 98.3 98.3 Pulse 65 Resp 20 B/P 155/64 Pulse Ox 97 O2 Delivery Room Air Intake and Output 02/09/17 02/09/17 02/10/17 15:00 23:00 07:00 Intake Total 0 ml 0 ml Output Total 900 ml 1375 ml Balance -900 ml -1375 ml 0 ml KARL GONZALEZ MD Feb 10, 2017 12:46
[2017-02-10] MEDS: PROCHLORPERAZINE 5 MG TABLET. PO SCH ×2 (13:47→22:14)
[2017-02-10] MEDS: HYDROCHLOROTHIAZIDE 25 MG TABLET PO SCH (13:47)
[2017-02-10] MEDS: LISINOPRIL 20 MG TABLET PO SCH (13:48)
[2017-02-10 15:00] VITALS: BP 157/70
--- NOTE | 2017-02-10 15:56 | PDOC ---
Provider Note Provider Note feeling much better. +bm. +flatus no n/v. no abd pain afeb vss abd soft nd nt inc without infection a/p improving. soft diet. likely home tomorrow. HALINA NEVILLE MD Feb 10, 2017 15:56
[2017-02-10 19:36] VITALS: BP 164/72
[2017-02-10] MEDS: ZOLPIDEM 5 MG TABLET. PO SCH (22:13)
[2017-02-10] MEDS: ONDANSETRON PF 4 MG/2 ML VIAL. IV PRN (23:18)
[2017-02-10] MEDS: OXYCODONE/APAP 7.5/325 TABLET. PO PRN (23:20)
[2017-02-10 23:43] VITALS: BP 145/70
[2017-02-11 03:18] VITALS: BP 147/74
[2017-02-11] MEDS: PROCHLORPERAZINE 5 MG TABLET. PO SCH ×3 (06:07→21:20)
[2017-02-11] MEDS: LEVOTHYROXINE 50 MCG TABLET PO SCH (06:08)
[2017-02-11 07:00] VITALS: BP 139/67
[2017-02-11] MEDS ORDERED: NON FORMULARY ITEM (Lisinopril/Hydrochlorothiazide (Lisinopril-Hctz 20-25 Mg Tab) 1 TAB) PO SCH (09:00)
--- NOTE | 2017-02-11 10:48 | PDOC ---
PROGRESS NOTES Chief Complaint Chief Complaint a/p 1. Possible ileus, 2. Stage IV colon cancer, with mesenteric involvement, extensive omental caking, diffuse metastasis throughout the peritoneal cavity, s /p s/p colectomy prior to this admission Plan asymptomatic today, no bowel movements yet Advance diet per GS recommendations If clinically better, asymptomatic, anticipated DC this evening. labs reviewed out pt follow up with [facility] at [place]. History of Present Illness History of Present Illness NO N/V NO FEVER FLATUS NO BM Vitals Vitals Vital Signs Date Time Temp Pulse Resp B/P Pulse Ox O2 Delivery O2 Flow Rate FiO2 02/11/17 07:00 97.9 52 16 139/67 99 Room Air 97.9 Physical Exam General: Alert, Oriented X3, Cooperative, No acute distress, Other (looks uncomfortable from NGT) Heart: Regular rate, Normal S1, Normal S2 Lungs: Clear, Other Abdomen: Normal bowel sounds, Soft, No tenderness, No hepatosplenomegaly, No masses, Other Extremities: No clubbing, No cyanosis, No edema, Normal pulses, No tenderness/ swelling Skin: No rashes, No breakdown, No significant lesion Assessment and Plan Assessmemt and Plan Problems Medical Problems: (1) Colon cancer Status: Acute (2) Leukocytosis Status: Acute (3) Postoperative abdominal pain Status: Acute Problems: Comment Review of Relevant I have reviewed the following items siena (where applicable) has been applied. Labs Laboratory Tests Test 02/10/17 03:30 White Blood Count 13.0x10^3/uL (4.0-11.0) Red Blood Count 4.59x10^6/uL (3.50-5.40) Hemoglobin 12.7g/dL (12.0-15.5) Hematocrit 38.4% (36.0-47.0) Mean Corpuscular Volume 84fL (79-100) Mean Corpuscular Hemoglobin 28pg (25-35) Mean Corpuscular Hemoglobin Concent 33g/dL (31-37) Red Cell Distribution Width 18.2% (11.5-14.5) Platelet Count 591x10^3/uL (140-400) Neutrophils (%) (Auto) 62% (31-73) Lymphocytes (%) (Auto) 23% (24-48) Monocytes (%) (Auto) 9% (0-9) Eosinophils (%) (Auto) 5% (0-3) Basophils (%) (Auto) 1% (0-3) Neutrophils # (Auto) 8.1x10^3uL (1.8-7.7) Lymphocytes # (Auto) 3.0x10^3/uL (1.0-4.8) Monocytes # (Auto) 1.1x10^3/uL (0.0-1.1) Eosinophils # (Auto) 0.6x10^3/uL (0.0-0.7) Basophils # (Auto) 0.2x10^3/uL (0.0-0.2) Sodium Level 138mmol/L (136-145) Potassium Level 4.1mmol/L (3.5-5.1) Chloride Level 101mmol/L (98-107) Carbon Dioxide Level 28mmol/L (21-32) Anion Gap 9 (6-14) Blood Urea Nitrogen 20mg/dL (7-20) Creatinine 0.8mg/dL (0.6-1.0) Estimated GFR (Cockcroft-Gault) 73.4 Glucose Level 92mg/dL (70-99) Calcium Level 8.7mg/dL (8.5-10.1) Microbiology 02/09/17 Urine Culture - Preliminary, Resulted 02/09/17 Urine Culture Result 1 (WADE) - Preliminary, Resulted Medications Current Medications Sodium Chloride (Iv Sodium Chloride 0.9% 1000ml Bag) 1,000 ml @ 1,000 mls/hr 1X ONCE IV Last administered on 02/09/17 01:38; Start 02/09/17 at 01:30; Stop 02/09/17 at 02:29; Status DC Ondansetron HCl (Zofran) 4 mg 1X ONCE IV Last administered on 02/09/17 01:38 ; Start 02/09/17 at 01:30; Stop 02/09/17 at 01:31; Status DC Fentanyl Citrate (Fentanyl 2ml Vial) 50 mcg PRN Q15MIN PRN IV PAIN GREATER THAN 3/10 Last administered on 02/09/17 01:59; Start 02/09/17 at 01:30; Stop at 07:41; Status DC Iohexol (Omnipaque 300 Mg/ml) 75 ml 1X ONCE IV Last administered on 02/09/17 01:36; Start 02/09/17 at 01:45; Stop 02/09/17 at 01:46; Status DC Info (Do NOT chart on this entry -- for MONITORING) 1 each PRN DAILY PRN MC SEE COMMENTS; Start 02/09/17 at 01:45; Stop 02/11/17 at 01:44; Status DC Ondansetron HCl (Zofran) 4 mg PRN Q8HRS PRN IV NAUSEA/VOMITING Last administered on 02/09/17 03:55; Start 02/09/17 at 02:45; Stop 02/09/17 at 07:41 ; Status DC Morphine Sulfate 4 mg 4 mg PRN Q2HR PRN IV PAIN Last administered on 02/09/17 20:24; Start 02/09/17 at 02:45; Stop 02/10/17 at 02:44; Status DC Sodium Chloride (Iv Sodium Chloride 0.9% 1000ml Bag) 1,000 ml @ 125 mls/hr Q8H IV Last administered on 02/09/17 03:55; Start 02/09/17 at 02:45; Stop at 10:13; Status DC Ondansetron HCl (Zofran) 4 mg PRN Q6HRS PRN IV NAUSEA/VOMITING Last administered on 02/10/17 23:18; Start 02/09/17 at 07:40 Fentanyl Citrate (Fentanyl 2ml Vial) 50 mcg PRN Q2HR PRN IV PAIN Last administered on 02/10/17 23:14; Start 02/09/17 at 07:45 Famotidine 20 mg 20 mg BID IVP Last administered on 02/10/17 10:27; Start at 09:00; Stop 02/10/17 at 12:45; Status DC Levothyroxine Sodium 25 mcg/ Sodium Chloride 5 ml @ 100 mls/hr DAILY IVP Last administered on 02/10/17 10:27; Start 02/09/17 at 09:00; Stop 02/10/17 at 12:45 ; Status DC Sodium Chloride 1,000 ml @ 100 mls/hr Q10H IV ; Start 02/09/17 at 10:12; Stop 02/09/17 at 10:17; Status DC Sodium Chloride 1,000 ml @ 100 mls/hr Q10H IV ; Start 02/09/17 at 20:00; Stop 02/09/17 at 19:30; Status Cancel Sodium Chloride (Iv Sodium Chloride 0.9% 1000ml Bag) 1,000 ml @ 100 mls/hr Q10H IV Last administered on 02/10/17 10:28; Start 02/09/17 at 20:00; Stop at 12:45; Status DC Levothyroxine Sodium (Synthroid) 50 mcg DAILY07 PO Last administered on 06:08; Start 02/11/17 at 07:00 Docusate Sodium (Colace) 100 mg PRN DAILY PRN PO CONSTIPATION; Start 02/10/17 at 12:45 Oxycodone/ Acetaminophen (Percocet 7.5/ 325) 1 tab PRN Q4HRS PRN PO MODERATE PAIN Last administered on 02/10/17 23:20; Start 02/10/17 at 12:45 Polyethylene Glycol (miraLAX PACKET) 17 gm PRN DAILY PRN PO CONSTIPATION; Start 02/10/17 at 12:45 Zolpidem Tartrate (Ambien) 5 mg QHS PO Last administered on 02/10/17 22:13; Start 02/10/17 at 21:00 Non-Formulary Medication 1 tab DAILY PO ; Start 02/11/17 at 09:00; Status UNV Prochlorperazine Maleate (Compazine) 10 mg Q8HRS PO Last administered on 06:07; Start 02/10/17 at 14:00 Lisinopril (Prinivil) 20 mg DAILY PO Last administered on 02/10/17 13:48; Start 02/10/17 at 13:00 Hydrochlorothiazide (Hydrodiuril) 25 mg DAILY PO Last administered on 13:47; Start 02/10/17 at 13:00 Active Scripts Active Compazine (Prochlorperazine Maleate) 10 Mg Tablet 10 Mg PO Q8HRS Docusate Sodium 100 Mg Capsule 100 Mg PO PRN DAILY PRN Oxycodon-Acetaminophen 7.5-325 (Oxycodone Hcl/Acetaminophen) 1 Each Tablet 1 Tab PO PRN Q4HRS PRN Miralax (Polyethylene Glycol 3350) 17 Gm Powd.pack 17 Gm PO PRN DAILY PRN Reported Ambien (Zolpidem Tartrate) 5 Mg Tablet 1 Tab PO QHS Lisinopril-Hctz 20-25 Mg Tab (Lisinopril/Hydrochlorothiazide) 1 Each Tablet 1 Tab PO DAILY Levothyroxine Sodium 50 Mcg Tablet 1 Tab PO DAILY Vitals/I & O Vital Sign - Last 24 Hours 02/10/17 02/10/17 02/10/17 02/10/17 11:00 13:48 15:00 16:35 Temp 98.3 98.5 98.3 98.5 Pulse 65 65 68 Resp 20 20 B/P 155/64 155/64 157/70 Pulse Ox 97 95 95 O2 Delivery Room Air Room Air Room Air 02/10/17 02/10/17 02/10/17 02/10/17 17:47 19:36 20:00 20:54 Temp 97.7 97.7 Pulse 85 Resp 18 B/P 164/72 Pulse Ox 95 94 94 O2 Delivery Room Air Room Air Room Air Room Air 02/10/17 02/10/17 02/10/17 02/11/17 23:14 23:20 23:43 03:18 Temp 97.8 98.1 97.8 98.1 Pulse 68 66 Resp 16 18 18 B/P 145/70 147/74 Pulse Ox 94 97 97 O2 Delivery Room Air Room Air Room Air Room Air 02/11/17 07:00 Temp 97.9 97.9 Pulse 52 Resp 16 B/P 139/67 Pulse Ox 99 O2 Delivery Room Air Intake and Output 02/10/17 02/10/17 02/11/17 15:00 23:00 07:00 Intake Total 400 ml 600 ml Output Total 3 ml Balance 397 ml 600 ml BRANDAN STEPHEN MD Feb 11, 2017 10:48
[2017-02-11 10:49] VITALS: BP 137/74
[2017-02-11] MEDS: HYDROCHLOROTHIAZIDE 25 MG TABLET PO SCH (10:57)
[2017-02-11] MEDS: LISINOPRIL 20 MG TABLET PO SCH (10:58)
--- NOTE | 2017-02-11 11:07 | PDOC ---
SURGICAL PROGRESS NOTE Subjective tolerating diet better, no emesis, some nausea no flatus today, did have stool yesterday Vital Signs Vital Signs Date Time Temp Pulse Resp B/P Pulse Ox O2 Delivery O2 Flow Rate FiO2 02/11/17 10:58 63 137/74 02/11/17 10:49 98.3 16 98 Room Air 98.3 I&O Intake and Output 02/11/17 07:00 Intake Total 1000 ml Output Total 3 ml Balance 997 ml Intake Oral 1000 ml Output Urine Total 3 ml # Voids 4 # Bowel Movements 5 General: Alert, Oriented X3, Cooperative, No acute distress Abdomen: Soft, Other (incision c/d/i, no erythema ) Labs Laboratory Tests Test 02/10/17 03:30 White Blood Count 13.0x10^3/uL (4.0-11.0) Red Blood Count 4.59x10^6/uL (3.50-5.40) Hemoglobin 12.7g/dL (12.0-15.5) Hematocrit 38.4% (36.0-47.0) Mean Corpuscular Volume 84fL (79-100) Mean Corpuscular Hemoglobin 28pg (25-35) Mean Corpuscular Hemoglobin Concent 33g/dL (31-37) Red Cell Distribution Width 18.2% (11.5-14.5) Platelet Count 591x10^3/uL (140-400) Neutrophils (%) (Auto) 62% (31-73) Lymphocytes (%) (Auto) 23% (24-48) Monocytes (%) (Auto) 9% (0-9) Eosinophils (%) (Auto) 5% (0-3) Basophils (%) (Auto) 1% (0-3) Neutrophils # (Auto) 8.1x10^3uL (1.8-7.7) Lymphocytes # (Auto) 3.0x10^3/uL (1.0-4.8) Monocytes # (Auto) 1.1x10^3/uL (0.0-1.1) Eosinophils # (Auto) 0.6x10^3/uL (0.0-0.7) Basophils # (Auto) 0.2x10^3/uL (0.0-0.2) Sodium Level 138mmol/L (136-145) Potassium Level 4.1mmol/L (3.5-5.1) Chloride Level 101mmol/L (98-107) Carbon Dioxide Level 28mmol/L (21-32) Anion Gap 9 (6-14) Blood Urea Nitrogen 20mg/dL (7-20) Creatinine 0.8mg/dL (0.6-1.0) Estimated GFR (Cockcroft-Gault) 73.4 Glucose Level 92mg/dL (70-99) Calcium Level 8.7mg/dL (8.5-10.1) Problem List Problems Medical Problems: (1) Colon cancer Status: Acute (2) Leukocytosis Status: Acute (3) Postoperative abdominal pain Status: Acute Assessment/Plan improved if tolerating diet, no vomiting possible dc this evening Problems: 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
[2017-02-11] MEDS: ONDANSETRON PF 4 MG/2 ML VIAL. IV PRN (12:51)
[2017-02-11] MEDS: fentaNYL PF VIAL 100 MCG/2 ML VIAL IV PRN ×3 (12:51→20:24)
[2017-02-11] MEDS: OXYCODONE/APAP 7.5/325 TABLET. PO PRN (12:51)
[2017-02-11 15:00] VITALS: BP 136/85
[2017-02-11] MEDS ORDERED: LIDO:MAALOX:DONNATAL 1:1:1 15 ML SINGLE DOSE SWSW PRN (18:30)
[2017-02-11 19:53] VITALS: BP 178/76
[2017-02-11] MEDS: PANTOPRAZOLE 40 MG TABLET.DR. PO SCH (21:20)
[2017-02-11] MEDS: ZOLPIDEM 5 MG TABLET. PO SCH (21:20)
[2017-02-11] MEDS ORDERED: fentaNYL PF VIAL 100 MCG/2 ML VIAL IV ONE (21:30)
[2017-02-11 23:12] VITALS: BP 139/63
[2017-02-12] MEDS: ONDANSETRON PF 4 MG/2 ML VIAL. IV PRN ×2 (00:43→22:58)
[2017-02-12] MEDS: fentaNYL PF VIAL 100 MCG/2 ML VIAL IV PRN ×8 (00:43→23:37)
[2017-02-12 03:16] VITALS: BP 139/60
[2017-02-12] MEDS: PROCHLORPERAZINE 5 MG TABLET. PO SCH ×3 (05:43→21:09)
[2017-02-12] MEDS: LEVOTHYROXINE 50 MCG TABLET PO SCH (05:43)
[2017-02-12 07:00] VITALS: BP 142/58
[2017-02-12] MEDS: LISINOPRIL 20 MG TABLET PO SCH (08:21)
[2017-02-12] MEDS: PANTOPRAZOLE 40 MG TABLET.DR. PO SCH (08:21)
[2017-02-12] MEDS: HYDROCHLOROTHIAZIDE 25 MG TABLET PO SCH (08:21)
[2017-02-12 11:00] VITALS: BP 142/65
--- NOTE | 2017-02-12 11:15 | PDOC ---
SURGICAL PROGRESS NOTE Subjective Pt with c/o diffuse abd pressure and pain, some nausea, no significant bowel fxn Vital Signs Vital Signs Date Time Temp Pulse Resp B/P Pulse Ox O2 Delivery O2 Flow Rate FiO2 02/12/17 10:59 93 Room Air 02/12/17 08:21 69 142/58 02/12/17 07:00 97.9 18 97.9 I&O Intake and Output 02/12/17 07:00 Intake Total 1210 ml Output Total 800 ml Balance 410 ml Intake Oral 1210 ml Output Urine Total 700 ml Emesis 100 ml # Voids 4 General: Alert, Oriented X3, Cooperative, No acute distress Abdomen: Soft, Other (mild diffuse TTP and distention) Labs Laboratory Tests Test 02/11/17 06:27 Clostridium difficile Toxin (PCR) Negative (Negative) Problem List Problems Medical Problems: (1) Colon cancer Status: Acute (2) Leukocytosis Status: Acute (3) Postoperative abdominal pain Status: Acute Assessment/Plan abd pain and bloating KUB suggests some improvement, but pt with persistent c/o d/w pt and pt's family options of continued observation, consideration of hyperthermic chemotherapy, or ostomy placement, with R/b/A of each discussed acs risk calculator used with LOS 10 days, complication 35%, risk of 7%. All risks above average, given comorbidities. Pt favors ileostomy placement for decompression. May possibly use G-tube for decompression as well. R/B/a d/w pt and pt's family Problems: BECKIE BYRNES MD Feb 12, 2017 11:15
--- NOTE | 2017-02-12 14:19 | PDOC ---
PROGRESS NOTES Chief Complaint Chief Complaint a/p 1. Possible ileus, not resolving, 2. Stage IV colon cancer, with mesenteric involvement, extensive omental caking, diffuse metastasis throughout the peritoneal cavity, s /p s/p colectomy prior to this admission Plan worsening symptoms, try NG Intermittent suction NPO IV hydration Pain control Surgical plans per Labs ordered. History of Present Illness History of Present Illness NO N/V NO FEVER FLATUS NO BM Vitals Vitals Vital Signs Date Time Temp Pulse Resp B/P Pulse Ox O2 Delivery O2 Flow Rate FiO2 02/12/17 13:10 95 Room Air 02/12/17 11:00 98.0 81 16 142/65 98.0 Physical Exam General: Alert, Oriented X3, Cooperative, No acute distress Heart: Regular rate, Normal S1, Normal S2 Lungs: Clear, Other Abdomen: Soft, Other Extremities: No clubbing, No cyanosis, No edema, Normal pulses, No tenderness/ swelling Skin: No rashes, No breakdown, No significant lesion Assessment and Plan Assessmemt and Plan Problems Medical Problems: (1) Colon cancer Status: Acute (2) Leukocytosis Status: Acute (3) Postoperative abdominal pain Status: Acute Problems: Comment Review of Relevant I have reviewed the following items siena (where applicable) has been applied. Labs Laboratory Tests Test 02/11/17 06:27 Clostridium difficile Toxin (PCR) Negative (Negative) Microbiology 02/09/17 Urine Culture - Final, Complete 02/09/17 Urine Culture Result 1 (WADE) - Final, Complete Medications Current Medications Sodium Chloride (Iv Sodium Chloride 0.9% 1000ml Bag) 1,000 ml @ 1,000 mls/hr 1X ONCE IV Last administered on 02/09/17 01:38; Start 02/09/17 at 01:30; Stop 02/09/17 at 02:29; Status DC Ondansetron HCl (Zofran) 4 mg 1X ONCE IV Last administered on 02/09/17 01:38 ; Start 02/09/17 at 01:30; Stop 02/09/17 at 01:31; Status DC Fentanyl Citrate (Fentanyl 2ml Vial) 50 mcg PRN Q15MIN PRN IV PAIN GREATER THAN 3/10 Last administered on 02/09/17 01:59; Start 02/09/17 at 01:30; Stop at 07:41; Status DC Iohexol (Omnipaque 300 Mg/ml) 75 ml 1X ONCE IV Last administered on 02/09/17 01:36; Start 02/09/17 at 01:45; Stop 02/09/17 at 01:46; Status DC Info (Do NOT chart on this entry -- for MONITORING) 1 each PRN DAILY PRN MC SEE COMMENTS; Start 02/09/17 at 01:45; Stop 02/11/17 at 01:44; Status DC Ondansetron HCl (Zofran) 4 mg PRN Q8HRS PRN IV NAUSEA/VOMITING Last administered on 02/09/17 03:55; Start 02/09/17 at 02:45; Stop 02/09/17 at 07:41 ; Status DC Morphine Sulfate 4 mg 4 mg PRN Q2HR PRN IV PAIN Last administered on 02/09/17 20:24; Start 02/09/17 at 02:45; Stop 02/10/17 at 02:44; Status DC Sodium Chloride (Iv Sodium Chloride 0.9% 1000ml Bag) 1,000 ml @ 125 mls/hr Q8H IV Last administered on 02/09/17 03:55; Start 02/09/17 at 02:45; Stop at 10:13; Status DC Ondansetron HCl (Zofran) 4 mg PRN Q6HRS PRN IV NAUSEA/VOMITING Last administered on 02/12/17 00:43; Start 02/09/17 at 07:40 Fentanyl Citrate (Fentanyl 2ml Vial) 50 mcg PRN Q2HR PRN IV PAIN Last administered on 02/12/17 05:43; Start 02/09/17 at 07:45 Famotidine 20 mg 20 mg BID IVP Last administered on 02/10/17 10:27; Start at 09:00; Stop 02/10/17 at 12:45; Status DC Levothyroxine Sodium 25 mcg/ Sodium Chloride 5 ml @ 100 mls/hr DAILY IVP Last administered on 02/10/17 10:27; Start 02/09/17 at 09:00; Stop 02/10/17 at 12:45 ; Status DC Sodium Chloride 1,000 ml @ 100 mls/hr Q10H IV ; Start 02/09/17 at 10:12; Stop 02/09/17 at 10:17; Status DC Sodium Chloride 1,000 ml @ 100 mls/hr Q10H IV ; Start 02/09/17 at 20:00; Stop 02/09/17 at 19:30; Status Cancel Sodium Chloride (Iv Sodium Chloride 0.9% 1000ml Bag) 1,000 ml @ 100 mls/hr Q10H IV Last administered on 02/10/17 10:28; Start 02/09/17 at 20:00; Stop at 12:45; Status DC Levothyroxine Sodium (Synthroid) 50 mcg DAILY07 PO Last administered on 05:43; Start 02/11/17 at 07:00 Docusate Sodium (Colace) 100 mg PRN DAILY PRN PO CONSTIPATION Last administered on 02/12/17 08:32; Start 02/10/17 at 12:45 Oxycodone/ Acetaminophen (Percocet 7.5/ 325) 1 tab PRN Q4HRS PRN PO MODERATE PAIN Last administered on 02/11/17 12:51; Start 02/10/17 at 12:45 Polyethylene Glycol (miraLAX PACKET) 17 gm PRN DAILY PRN PO CONSTIPATION; Start 02/10/17 at 12:45 Zolpidem Tartrate (Ambien) 5 mg QHS PO Last administered on 02/11/17 21:20; Start 02/10/17 at 21:00 Non-Formulary Medication 1 tab DAILY PO ; Start 02/11/17 at 09:00; Status UNV Prochlorperazine Maleate (Compazine) 10 mg Q8HRS PO Last administered on 05:43; Start 02/10/17 at 14:00 Lisinopril (Prinivil) 20 mg DAILY PO Last administered on 02/12/17 08:21; Start 02/10/17 at 13:00 Hydrochlorothiazide (Hydrodiuril) 25 mg DAILY PO Last administered on 08:21; Start 02/10/17 at 13:00 Multi-Ingredient Mouthwash/Gargle (Gi Cocktail Single Dose) 15 ml PRN Q6HRS PRN SWSW GAS / BLOATING Last administered on 02/11/17 21:19; Start 02/11/17 at 18:30 Pantoprazole Sodium (Protonix) 40 mg DAILYAC PO Last administered on 02/12/17 08:21; Start 02/11/17 at 18:45 Fentanyl Citrate (Fentanyl 2ml Vial) 50 mcg 1X ONCE IV Last administered on 22:01; Start 02/11/17 at 21:30; Stop 02/11/17 at 21:31; Status DC Fentanyl Citrate 100 mcg 100 mcg PRN Q2HR PRN IV PAIN Last administered on 02/12 11:59; Start 02/11/17 at 21:30 Cefoxitin Sodium/ Sodium Chloride (Mefoxin/Iv Sodium Chloride 0.9% 100ml) 100 ml @ 200 mls/hr 1X PREOP IV ; Start 02/12/17 at 11:15 Ondansetron HCl (Zofran) 4 mg PRN Q6HRS PRN IV NAUSEA/VOMITING; Start 02/13/17 at 07:00; Stop 02/14/17 at 06:59 Fentanyl Citrate (Fentanyl 2ml Vial) 25 mcg PRN Q5MIN PRN IV MILD PAIN; Start 02/13/17 at 07:00; Stop 02/14/17 at 06:59 Fentanyl Citrate (Fentanyl 2ml Vial) 50 mcg PRN Q5MIN PRN IV MODERATE PAIN; Start 02/13/17 at 07:00; Stop 02/14/17 at 06:59 Morphine Sulfate 1 mg 1 mg PRN Q10MIN PRN IV SEVERE PAIN; Start 02/13/17 at 07: 00; Stop 02/14/17 at 06:59 Lactated Ringer's (Iv Lactated Ringers) 1,000 ml @ 30 mls/hr Q24H IV ; Start at 07:00; Stop 02/13/17 at 18:59 Lidocaine HCl 2 ml PRN 1X PRN ID PRIOR TO IV START; Start 02/13/17 at 07:00; Stop 02/14/17 at 06:59 Hydromorphone HCl (Dilaudid) 0.5 mg PRN Q10MIN PRN IV SEV PAIN, Second choice; Start 02/13/17 at 07:00; Stop 02/14/17 at 06:59 Prochlorperazine Edisylate (Compazine) 5 mg PACU PRN PRN IV NAUSEA, MRX1; Start 02/13/17 at 07:00; Stop 02/14/17 at 06:59 Active Scripts Active Compazine (Prochlorperazine Maleate) 10 Mg Tablet 10 Mg PO Q8HRS Docusate Sodium 100 Mg Capsule 100 Mg PO PRN DAILY PRN Oxycodon-Acetaminophen 7.5-325 (Oxycodone Hcl/Acetaminophen) 1 Each Tablet 1 Tab PO PRN Q4HRS PRN Miralax (Polyethylene Glycol 3350) 17 Gm Powd.pack 17 Gm PO PRN DAILY PRN Reported Ambien (Zolpidem Tartrate) 5 Mg Tablet 1 Tab PO QHS Lisinopril-Hctz 20-25 Mg Tab (Lisinopril/Hydrochlorothiazide) 1 Each Tablet 1 Tab PO DAILY Levothyroxine Sodium 50 Mcg Tablet 1 Tab PO DAILY Vitals/I & O Vital Sign - Last 24 Hours 02/11/17 02/11/17 02/11/17 02/11/17 15:00 16:30 17:00 19:53 Temp 98.0 97.7 98.0 97.7 Pulse 81 93 Resp 18 16 B/P 136/85 178/76 Pulse Ox 98 93 93 O2 Delivery Room Air Room Air Room Air 02/11/17 02/11/17 02/11/17 02/11/17 20:00 20:24 22:01 22:30 Resp 20 17 16 O2 Delivery Room Air Room Air Room Air Room Air 02/11/17 02/12/17 02/12/17 02/12/17 23:12 00:43 01:10 03:16 Temp 98.1 97.9 98.1 97.9 Pulse 76 63 Resp 18 17 16 B/P 139/63 139/60 Pulse Ox 94 90 O2 Delivery Room Air Room Air Room Air 02/12/17 02/12/17 02/12/17 02/12/17 05:43 06:00 07:00 08:21 Temp 97.9 97.9 Pulse 69 69 Resp 17 18 B/P 142/58 142/58 Pulse Ox 93 O2 Delivery Room Air Room Air Room Air 02/12/17 02/12/17 02/12/17 02/12/17 08:23 10:07 11:00 11:59 Temp 98.0 98.0 Pulse 81 Resp 16 B/P 142/65 Pulse Ox 93 95 95 O2 Delivery Room Air Room Air Room Air Room Air 02/12/17 13:10 Pulse Ox 95 O2 Delivery Room Air Intake and Output 02/11/17 02/11/17 02/12/17 15:00 23:00 07:00 Intake Total 600 ml 610 ml Output Total 100 ml 700 ml Balance 500 ml -90 ml BRANDAN STEPHEN MD Feb 12, 2017 14:19
[2017-02-12 15:00] VITALS: BP 160/65
[2017-02-12] MEDS: IV NORMAL SALINE 1000ML BAG 1,000 ML IV SCH (15:30)
[2017-02-12 19:41] VITALS: BP 144/74
[2017-02-12] MEDS: ZOLPIDEM 5 MG TABLET. PO SCH (21:09)
[2017-02-12 23:00] VITALS: BP 147/81
[2017-02-13] VITALS (9 sets, daily range): BP systolic 114–157; BP diastolic 45–64
[2017-02-13] MEDS: fentaNYL PF VIAL 100 MCG/2 ML VIAL IV PRN ×12 (03:02→22:35)
[2017-02-13 05:26] LABS: HEMATOCRIT 35.9 % (36.0-47.0); HEMOGLOBIN 11.7 g/dL (12.0-15.5); RED BLOOD COUNT 4.2 x10^6/uL (3.50-5.40); RED CELL DISTRIBUTION WIDTH 17.6 % (11.5-14.5); WHITE BLOOD COUNT 12.4 x10^3/uL (4.0-11.0)
[2017-02-13] MEDS: IV NORMAL SALINE 1000ML BAG 1,000 ML IV SCH (05:36)
[2017-02-13 05:42] LABS: CREATININE 0.7 mg/dL (0.6-1.0); GFR 85.6; POTASSIUM 3.3 mmol/L (3.5-5.1)
[2017-02-13] MEDS: PROCHLORPERAZINE 5 MG TABLET. PO SCH ×3 (06:00→20:35)
[2017-02-13] MEDS ORDERED: ONDANSETRON PF 4 MG/2 ML VIAL. IV PRN ×2 (07:00→15:15)
[2017-02-13] MEDS: LEVOTHYROXINE 50 MCG TABLET PO SCH (07:00)
[2017-02-13] MEDS ORDERED: PROCHLORPERAZINE 10 MG/2 ML VIAL. IV PRN (07:00)
[2017-02-13] MEDS: IV RINGERS,LACTATED 1000ML 1,000 ML IV SCH ×2 (07:00→12:39)
[2017-02-13] MEDS ORDERED: LIDOCAINE 1% 1 ML SYRINGE. ID PRN (07:00)
[2017-02-13] MEDS ORDERED: fentaNYL PF VIAL 100 MCG/2 ML VIAL IV PRN (07:00)
[2017-02-13] MEDS: PANTOPRAZOLE 40 MG TABLET.DR. PO SCH (07:21)
[2017-02-13] MEDS: HYDROCHLOROTHIAZIDE 25 MG TABLET PO SCH (07:23)
[2017-02-13] MEDS: LISINOPRIL 20 MG TABLET PO SCH (07:25)
--- NOTE | 2017-02-13 09:07 | PDOC ---
SURGICAL PROGRESS NOTE Subjective Pre-Op Note 61 yo F with widely metastatic colon cancer of the peritoneal cavity. S/p bowel resection for obstruction. Currently c/o crampy abd pain, nausea, with minimal output TO OR for palliative loop ileostomy placement and G-tube placement R/B/A d/w pt and pt's sister will plan OR at 1300 Vital Signs Vital Signs Date Time Temp Pulse Resp B/P Pulse Ox O2 Delivery O2 Flow Rate FiO2 02/13/17 08:52 16 95 Room Air 02/13/17 07:00 98.2 76 147/64 98.2 I&O Intake and Output 02/13/17 07:00 Intake Total 460 ml Output Total 1200 ml Balance -740 ml Intake Oral 460 ml Output Urine Total 1200 ml # Voids 1 Labs Laboratory Tests Test 02/13/17 05:05 White Blood Count 12.4x10^3/uL (4.0-11.0) Red Blood Count 4.20x10^6/uL (3.50-5.40) Hemoglobin 11.7g/dL (12.0-15.5) Hematocrit 35.9% (36.0-47.0) Mean Corpuscular Volume 86fL (79-100) Mean Corpuscular Hemoglobin 28pg (25-35) Mean Corpuscular Hemoglobin Concent 33g/dL (31-37) Red Cell Distribution Width 17.6% (11.5-14.5) Platelet Count 536x10^3/uL (140-400) Sodium Level 135mmol/L (136-145) Potassium Level 3.3mmol/L (3.5-5.1) Chloride Level 99mmol/L (98-107) Carbon Dioxide Level 27mmol/L (21-32) Anion Gap 9 (6-14) Blood Urea Nitrogen 18mg/dL (7-20) Creatinine 0.7mg/dL (0.6-1.0) Estimated GFR (Cockcroft-Gault) 85.6 Glucose Level 80mg/dL (70-99) Calcium Level 8.0mg/dL (8.5-10.1) Laboratory Tests Test 02/13/17 05:05 White Blood Count 12.4x10^3/uL (4.0-11.0) Red Blood Count 4.20x10^6/uL (3.50-5.40) Hemoglobin 11.7g/dL (12.0-15.5) Hematocrit 35.9% (36.0-47.0) Mean Corpuscular Volume 86fL (79-100) Mean Corpuscular Hemoglobin 28pg (25-35) Mean Corpuscular Hemoglobin Concent 33g/dL (31-37) Red Cell Distribution Width 17.6% (11.5-14.5) Platelet Count 536x10^3/uL (140-400) Sodium Level 135mmol/L (136-145) Potassium Level 3.3mmol/L (3.5-5.1) Chloride Level 99mmol/L (98-107) Carbon Dioxide Level 27mmol/L (21-32) Anion Gap 9 (6-14) Blood Urea Nitrogen 18mg/dL (7-20) Creatinine 0.7mg/dL (0.6-1.0) Estimated GFR (Cockcroft-Gault) 85.6 Glucose Level 80mg/dL (70-99) Calcium Level 8.0mg/dL (8.5-10.1) Problem List Problems Medical Problems: (1) Colon cancer Status: Acute (2) Leukocytosis Status: Acute (3) Postoperative abdominal pain Status: Acute Problems: BECKIE BYRNES MD Feb 13, 2017 09:07
--- NOTE | 2017-02-13 10:36 | PDOC ---
PROGRESS NOTES Chief Complaint Chief Complaint a/p 1. Possible ileus, not resolving, 2. Stage IV colon cancer, with mesenteric involvement, extensive omental caking, diffuse metastasis throughout the peritoneal cavity, s /p s/p colectomy prior to this admission Plan s/p palliative loop ileostomy placement and G-tube placement NPO IV hydration wtih NaCl and Potassium Pain control with PRN morphine Labs reviewed. History of Present Illness History of Present Illness seen after surgery no fever doing better had BM this AM Vitals Vitals Vital Signs Date Time Temp Pulse Resp B/P Pulse Ox O2 Delivery O2 Flow Rate FiO2 02/13/17 10:04 16 95 Room Air 02/13/17 07:00 98.2 76 147/64 98.2 Physical Exam General: Alert, Oriented X3, Cooperative, No acute distress Heart: Regular rate, Normal S1, Normal S2 Lungs: Clear, Other Abdomen: Soft, Other Extremities: No clubbing, No cyanosis, No edema, Normal pulses, No tenderness/ swelling Skin: No rashes, No breakdown, No significant lesion Labs LABS Laboratory Tests Test 02/13/17 05:05 White Blood Count 12.4x10^3/uL (4.0-11.0) Red Blood Count 4.20x10^6/uL (3.50-5.40) Hemoglobin 11.7g/dL (12.0-15.5) Hematocrit 35.9% (36.0-47.0) Mean Corpuscular Volume 86fL (79-100) Mean Corpuscular Hemoglobin 28pg (25-35) Mean Corpuscular Hemoglobin Concent 33g/dL (31-37) Red Cell Distribution Width 17.6% (11.5-14.5) Platelet Count 536x10^3/uL (140-400) Sodium Level 135mmol/L (136-145) Potassium Level 3.3mmol/L (3.5-5.1) Chloride Level 99mmol/L (98-107) Carbon Dioxide Level 27mmol/L (21-32) Anion Gap 9 (6-14) Blood Urea Nitrogen 18mg/dL (7-20) Creatinine 0.7mg/dL (0.6-1.0) Estimated GFR (Cockcroft-Gault) 85.6 Glucose Level 80mg/dL (70-99) Calcium Level 8.0mg/dL (8.5-10.1) Assessment and Plan Assessmemt and Plan Problems Medical Problems: (1) Colon cancer Status: Acute (2) Leukocytosis Status: Acute (3) Postoperative abdominal pain Status: Acute Problems: Comment Review of Relevant I have reviewed the following items siena (where applicable) has been applied. Labs Laboratory Tests Test 02/13/17 05:05 White Blood Count 12.4x10^3/uL (4.0-11.0) Red Blood Count 4.20x10^6/uL (3.50-5.40) Hemoglobin 11.7g/dL (12.0-15.5) Hematocrit 35.9% (36.0-47.0) Mean Corpuscular Volume 86fL (79-100) Mean Corpuscular Hemoglobin 28pg (25-35) Mean Corpuscular Hemoglobin Concent 33g/dL (31-37) Red Cell Distribution Width 17.6% (11.5-14.5) Platelet Count 536x10^3/uL (140-400) Sodium Level 135mmol/L (136-145) Potassium Level 3.3mmol/L (3.5-5.1) Chloride Level 99mmol/L (98-107) Carbon Dioxide Level 27mmol/L (21-32) Anion Gap 9 (6-14) Blood Urea Nitrogen 18mg/dL (7-20) Creatinine 0.7mg/dL (0.6-1.0) Estimated GFR (Cockcroft-Gault) 85.6 Glucose Level 80mg/dL (70-99) Calcium Level 8.0mg/dL (8.5-10.1) Laboratory Tests Test 02/13/17 05:05 White Blood Count 12.4x10^3/uL (4.0-11.0) Red Blood Count 4.20x10^6/uL (3.50-5.40) Hemoglobin 11.7g/dL (12.0-15.5) Hematocrit 35.9% (36.0-47.0) Mean Corpuscular Volume 86fL (79-100) Mean Corpuscular Hemoglobin 28pg (25-35) Mean Corpuscular Hemoglobin Concent 33g/dL (31-37) Red Cell Distribution Width 17.6% (11.5-14.5) Platelet Count 536x10^3/uL (140-400) Sodium Level 135mmol/L (136-145) Potassium Level 3.3mmol/L (3.5-5.1) Chloride Level 99mmol/L (98-107) Carbon Dioxide Level 27mmol/L (21-32) Anion Gap 9 (6-14) Blood Urea Nitrogen 18mg/dL (7-20) Creatinine 0.7mg/dL (0.6-1.0) Estimated GFR (Cockcroft-Gault) 85.6 Glucose Level 80mg/dL (70-99) Calcium Level 8.0mg/dL (8.5-10.1) Microbiology 02/09/17 Urine Culture - Final, Complete 02/09/17 Urine Culture Result 1 (WADE) - Final, Complete Medications Current Medications Sodium Chloride (Iv Sodium Chloride 0.9% 1000ml Bag) 1,000 ml @ 1,000 mls/hr 1X ONCE IV Last administered on 02/09/17 01:38; Start 02/09/17 at 01:30; Stop 02/09/17 at 02:29; Status DC Ondansetron HCl (Zofran) 4 mg 1X ONCE IV Last administered on 02/09/17 01:38 ; Start 02/09/17 at 01:30; Stop 02/09/17 at 01:31; Status DC Fentanyl Citrate (Fentanyl 2ml Vial) 50 mcg PRN Q15MIN PRN IV PAIN GREATER THAN 3/10 Last administered on 02/09/17 01:59; Start 02/09/17 at 01:30; Stop at 07:41; Status DC Iohexol (Omnipaque 300 Mg/ml) 75 ml 1X ONCE IV Last administered on 02/09/17 01:36; Start 02/09/17 at 01:45; Stop 02/09/17 at 01:46; Status DC Info (Do NOT chart on this entry -- for MONITORING) 1 each PRN DAILY PRN MC SEE COMMENTS; Start 02/09/17 at 01:45; Stop 02/11/17 at 01:44; Status DC Ondansetron HCl (Zofran) 4 mg PRN Q8HRS PRN IV NAUSEA/VOMITING Last administered on 02/09/17 03:55; Start 02/09/17 at 02:45; Stop 02/09/17 at 07:41 ; Status DC Morphine Sulfate 4 mg 4 mg PRN Q2HR PRN IV PAIN Last administered on 02/09/17 20:24; Start 02/09/17 at 02:45; Stop 02/10/17 at 02:44; Status DC Sodium Chloride (Iv Sodium Chloride 0.9% 1000ml Bag) 1,000 ml @ 125 mls/hr Q8H IV Last administered on 02/09/17 03:55; Start 02/09/17 at 02:45; Stop at 10:13; Status DC Ondansetron HCl (Zofran) 4 mg PRN Q6HRS PRN IV NAUSEA/VOMITING Last administered on 02/12/17 22:58; Start 02/09/17 at 07:40 Fentanyl Citrate (Fentanyl 2ml Vial) 50 mcg PRN Q2HR PRN IV PAIN Last administered on 02/12/17 05:43; Start 02/09/17 at 07:45 Famotidine 20 mg 20 mg BID IVP Last administered on 02/10/17 10:27; Start at 09:00; Stop 02/10/17 at 12:45; Status DC Levothyroxine Sodium 25 mcg/ Sodium Chloride 5 ml @ 100 mls/hr DAILY IVP Last administered on 02/10/17 10:27; Start 02/09/17 at 09:00; Stop 02/10/17 at 12:45 ; Status DC Sodium Chloride 1,000 ml @ 100 mls/hr Q10H IV ; Start 02/09/17 at 10:12; Stop 02/09/17 at 10:17; Status DC Sodium Chloride 1,000 ml @ 100 mls/hr Q10H IV ; Start 02/09/17 at 20:00; Stop 02/09/17 at 19:30; Status Cancel Sodium Chloride (Iv Sodium Chloride 0.9% 1000ml Bag) 1,000 ml @ 100 mls/hr Q10H IV Last administered on 02/10/17 10:28; Start 02/09/17 at 20:00; Stop at 12:45; Status DC Levothyroxine Sodium (Synthroid) 50 mcg DAILY07 PO Last administered on 05:43; Start 02/11/17 at 07:00 Docusate Sodium (Colace) 100 mg PRN DAILY PRN PO CONSTIPATION Last administered on 02/12/17 08:32; Start 02/10/17 at 12:45 Oxycodone/ Acetaminophen (Percocet 7.5/ 325) 1 tab PRN Q4HRS PRN PO MODERATE PAIN Last administered on 02/11/17 12:51; Start 02/10/17 at 12:45 Polyethylene Glycol (miraLAX PACKET) 17 gm PRN DAILY PRN PO CONSTIPATION; Start 02/10/17 at 12:45 Zolpidem Tartrate (Ambien) 5 mg QHS PO Last administered on 02/12/17 21:09; Start 02/10/17 at 21:00 Non-Formulary Medication 1 tab DAILY PO ; Start 02/11/17 at 09:00; Status UNV Prochlorperazine Maleate (Compazine) 10 mg Q8HRS PO Last administered on 21:09; Start 02/10/17 at 14:00 Lisinopril (Prinivil) 20 mg DAILY PO Last administered on 02/12/17 08:21; Start 02/10/17 at 13:00 Hydrochlorothiazide (Hydrodiuril) 25 mg DAILY PO Last administered on 08:21; Start 02/10/17 at 13:00 Multi-Ingredient Mouthwash/Gargle (Gi Cocktail Single Dose) 15 ml PRN Q6HRS PRN SWSW GAS / BLOATING Last administered on 02/11/17 21:19; Start 02/11/17 at 18:30 Pantoprazole Sodium (Protonix) 40 mg DAILYAC PO Last administered on 02/12/17 08:21; Start 02/11/17 at 18:45 Fentanyl Citrate (Fentanyl 2ml Vial) 50 mcg 1X ONCE IV Last administered on 22:01; Start 02/11/17 at 21:30; Stop 02/11/17 at 21:31; Status DC Fentanyl Citrate 100 mcg 100 mcg PRN Q2HR PRN IV PAIN Last administered on 02/13 08:52; Start 02/11/17 at 21:30 Cefoxitin Sodium/ Sodium Chloride (Mefoxin/Iv Sodium Chloride 0.9% 100ml) 100 ml @ 200 mls/hr 1X PREOP IV ; Start 02/12/17 at 11:15 Ondansetron HCl (Zofran) 4 mg PRN Q6HRS PRN IV NAUSEA/VOMITING; Start 02/13/17 at 07:00; Stop 02/14/17 at 06:59 Fentanyl Citrate (Fentanyl 2ml Vial) 25 mcg PRN Q5MIN PRN IV MILD PAIN; Start 02/13/17 at 07:00; Stop 02/14/17 at 06:59 Fentanyl Citrate (Fentanyl 2ml Vial) 50 mcg PRN Q5MIN PRN IV MODERATE PAIN; Start 02/13/17 at 07:00; Stop 02/14/17 at 06:59 Morphine Sulfate 1 mg 1 mg PRN Q10MIN PRN IV SEVERE PAIN; Start 02/13/17 at 07: 00; Stop 02/14/17 at 06:59 Lactated Ringer's (Iv Lactated Ringers) 1,000 ml @ 30 mls/hr Q24H IV ; Start at 07:00; Stop 02/13/17 at 18:59 Lidocaine HCl 2 ml PRN 1X PRN ID PRIOR TO IV START; Start 02/13/17 at 07:00; Stop 02/14/17 at 06:59 Hydromorphone HCl (Dilaudid) 0.5 mg PRN Q10MIN PRN IV SEV PAIN, Second choice; Start 02/13/17 at 07:00; Stop 02/14/17 at 06:59 Prochlorperazine Edisylate 5 mg 5 mg PACU PRN PRN IV NAUSEA, MRX1; Start at 07:00; Stop 02/14/17 at 06:59 Sodium Chloride (Iv Sodium Chloride 0.9% 1000ml Bag) 1,000 ml @ 75 mls/hr [id number] IV Last administered on 02/13/17t 05:36; Start 02/12/17 at 15:30 Active Scripts Active Compazine (Prochlorperazine Maleate) 10 Mg Tablet 10 Mg PO Q8HRS Docusate Sodium 100 Mg Capsule 100 Mg PO PRN DAILY PRN Oxycodon-Acetaminophen 7.5-325 (Oxycodone Hcl/Acetaminophen) 1 Each Tablet 1 Tab PO PRN Q4HRS PRN Miralax (Polyethylene Glycol 3350) 17 Gm Powd.pack 17 Gm PO PRN DAILY PRN Reported Ambien (Zolpidem Tartrate) 5 Mg Tablet 1 Tab PO QHS Lisinopril-Hctz 20-25 Mg Tab (Lisinopril/Hydrochlorothiazide) 1 Each Tablet 1 Tab PO DAILY Levothyroxine Sodium 50 Mcg Tablet 1 Tab PO DAILY Vitals/I & O Vital Sign - Last 24 Hours 02/12/17 02/12/17 02/12/17 02/12/17 11:00 11:59 15:00 15:29 Temp 98.0 98.0 98.0 98.0 Pulse 81 80 Resp 16 16 B/P 142/65 160/65 Pulse Ox 95 95 98 98 O2 Delivery Room Air Room Air Room Air Room Air 02/12/17 02/12/17 02/12/17 02/12/17 18:32 19:41 20:00 21:10 Temp 98.3 98.3 Pulse 82 Resp 18 16 B/P 144/74 Pulse Ox 98 96 O2 Delivery Room Air Room Air Room Air Room Air 02/12/17 02/12/17 02/13/17 02/13/17 23:00 23:37 03:02 05:37 Temp 98.4 98.4 Pulse 86 Resp 18 17 18 B/P 147/81 Pulse Ox 96 O2 Delivery Room Air Room Air Room Air Room Air 02/13/17 02/13/17 02/13/17 02/13/17 07:00 08:00 08:52 10:04 Temp 98.2 98.2 Pulse 76 Resp 16 B/P 147/64 Pulse Ox 95 95 95 O2 Delivery Room Air Room Air Room Air Room Air Intake and Output 02/12/17 02/12/17 02/13/17 15:00 23:00 07:00 Intake Total 400 ml 60 ml Output Total 800 ml 400 ml Balance -400 ml -340 ml BRANDAN STEPHEN MD Feb 13, 2017 10:36
[2017-02-13] MEDS ORDERED: BUPIVACAINE-EPI 0.5%-1:200000 50 ML VIAL. ONE (12:40)
[2017-02-13] MEDS ORDERED: fentaNYL PF VIAL 100 MCG/2 ML VIAL ONE ×2 (13:11→14:11)
[2017-02-13] MEDS ORDERED: ROCURONIUM 50 MG/5 ML VIAL. ONE (13:12)
[2017-02-13] MEDS ORDERED: DESFLURANE 31 TO 60 MINUTES IH ONE (13:13)
[2017-02-13] MEDS ORDERED: LIDOCAINE 2% 100 MG/5 ML SYRINGE. ONE (13:14)
[2017-02-13] MEDS ORDERED: ONDANSETRON PF 4 MG/2 ML VIAL. ONE (13:14)
[2017-02-13] MEDS ORDERED: PROPOFOL 20 ML IV ONE (13:14)
[2017-02-13] MEDS ORDERED: DEXAMETHASONE SOD PHOS 20 MG/5 ML VIAL. ONE (13:14)
[2017-02-13] MEDS ORDERED: VANCOMYCIN 1 GM VIAL. ONE (13:14)
[2017-02-13] MEDS ORDERED: ESMOLOL 100 MG/10 ML VIAL. IV ONE (13:22)
[2017-02-13] MEDS ORDERED: ePHEDrine PF IN SALINE 50 MG/5 ML DISP.SYRIN IV ONE (13:38)
[2017-02-13] MEDS ORDERED: GLYCOPYRROLATE 1 MG/5 ML VIAL. ONE (13:53)
[2017-02-13] MEDS ORDERED: NEOSTIGMINE METHYLSULFATE 5 MG/5 ML SYRINGE. ONE (13:53)
[2017-02-13] MEDS ORDERED: LABETALOL 20 MG/4 ML DISP.SYRIN. ONE (14:28)
[2017-02-13] MEDS ORDERED: MORPHINE SULFATE 10 MG/ML VIAL. ONE (14:53)
[2017-02-13] MEDS ORDERED: 0.9 % SODIUM CHLORIDE 10 ML DISP.SYRIN. IV PRN (15:15)
[2017-02-13] MEDS: MORPHINE SULFATE 2 MG/ML DISP.SYRIN. IV PRN ×2 (15:26→15:45)
--- NOTE | 2017-02-13 15:31 | PDOC ---
BRIEF OPERATIVE NOTE Pre-Op Diagnosis Metastatic colon cancer Post-Op Diagnosis same Procedure Performed Laparoscopic G-tube, laparoscopic loop ileostomy Surgeon Sherrie Anesthesia Type: General, Local Blood Loss 50 Findings distended bowel, no obvious adhesion, Complications none Additional Remarks [id number] BECKIE BYRNES MD Feb 13, 2017 15:31
[2017-02-13] MEDS: HYDROmorphone 2 MG/ML VIAL IV PRN ×4 (15:39→16:12)
[2017-02-13] MEDS ORDERED: ENOXAPARIN 40 MG/0.4 ML SYRINGE. SQ SCH (16:00)
[2017-02-13] MEDS: ZOLPIDEM 5 MG TABLET. PO SCH (20:35)
--- NOTE | 2017-02-13 21:27 | OP ---
DATE OF SURGERY: 02/13/2017 REFERRING PHYSICIANS: Dr. Cassanrda Kemp, Dr. Shruti Gaines, Dr. Zehra Smith. PREOPERATIVE DIAGNOSIS: Metastatic colon cancer obstruction. POSTOPERATIVE DIAGNOSIS: Metastatic colon cancer obstruction. PROCEDURE: Laparoscopic gastrostomy tube placement, laparoscopic ileostomy placement. SURGEON: Antony Balderas MD ESTIMATED BLOOD LOSS: 50 mL. COMPLICATIONS: None. FINDINGS: Distended small bowel, suspected distended colon. No obvious significant adhesions or other signs of obvious obstruction favor obstruction in the pouch of Garret from metastatic disease. INDICATIONS: A 61-year-old female status post a standard right colon resection for obstructing colon cancer with extensive diastasis of the omentum and diffusely throughout the peritoneum approximately 2 weeks ago. She has had intermittent problems with obstruction during that time with minimal success in resolving this as such, and it was felt the patient has persistent obstruction secondary to metastatic disease. Subsequently, it was felt the patient would best be served by laparoscopic versus open gastrostomy tube placement and loop ileostomy placement. The patient and patient's family were informed of the risks, benefits and alternatives of the procedure, risks including but not limited to bleeding, infection, damage to the surrounding structures, risk of anesthesia, risk of an open procedure. The patient and the patient's family appeared to understand, and their insightful questions were answered and they agreed to proceed. DESCRIPTION OF PROCEDURE: After obtaining informed consent, the patient was taken to the operating room, induced under general endotracheal anesthetic. The patient was prepped and draped in usual fashion in the anterior abdominal wall. Her midline incision was healing nicely. Marcaine 0.5% with epinephrine was injected in the right lower quadrant. Incision was made using 15 blade scalpel. A 5 mm nonbladed trocar was introduced into the abdominal cavity under direct vision of the laparoscope. Pneumoperitoneum was established. Additional 5 mm ports were placed in the right mid abdomen and the right upper quadrant, and a 12 port was placed in the left upper quadrant, all under direct vision of the laparoscope. The abdominal cavity was explored. Stomach was normal in appearance. Liver was normal in appearance. There were a few metastatic nodules noted in the peritoneal cavity and some small amount of ascites. The small bowel was noted to be diffusely distended, but otherwise unremarkable. The ileocolic anastomosis appeared to be patent and intact, does appear to be some distention of the colon, although an obvious obstruction was not really identifiable, and it was felt to be in the deep pelvis secondary to metastatic disease in the pouch of Garret. Subsequently, the stomach was grasped. A gastrotomy was created after pulling through the 12 port site. Multiple 3-0 Vicryl stitches were tacked circumferentially. A 20 gastrostomy tube was then introduced and the balloon was inflated and the stomach was brought up to the abdominal wall. Attention was then turned to the ileostomy. The anastomosis was identified proximal to this and in close apposition in the right lower quadrant. A loop of bowel was grasped by an atraumatic grasper, and the right lower quadrant port site was then enlarged to 2 fingerbreadths of the powder mill operator and a loop of small bowel was pulled through this and matured over loop ileostomy bridge using multiple interrupted 3-0 chromic stitches. The ileostomy was noted to be patent proximally and distally to and below the level of the fascia and appeared to have distention, especially in the distal small bowel. The laparoscope was reintroduced. All gastrostomy tube and ileostomy appeared to be appropriate. They did not appear to be compromised with the small bowel coming through the fascia. All ports removed under direct vision of the laparoscope. There was no evidence of port site bleeding. Skin incisions were reapproximated with multiple interrupted 4-0 Monocryl in subcuticular fashion. Sterile dressing was placed over all wounds, 3-0 nylons were used to secure the G-tube in place. Her ostomy device was placed in the right lower quadrant. The patient tolerated the procedure well and was discharged to recovery room in stable condition. All counts correct. There were no immediate complications. Wound classification is dirty. Thank you for allowing my participation in the care of this very pleasant patient. ANTONY BALDERAS MD DR: JET/saad JOB#: [id number] / [id number] ZEHRA Oropeza ANNE MD MARSH, IRA MD MTDD
[2017-02-14 03:20] VITALS: BP 141/44
[2017-02-14] MEDS: PROCHLORPERAZINE 5 MG TABLET. PO SCH ×3 (05:24→22:00)
[2017-02-14] MEDS: fentaNYL PF VIAL 100 MCG/2 ML VIAL IV PRN ×7 (05:24→23:40)
[2017-02-14] MEDS: LEVOTHYROXINE 50 MCG TABLET PO SCH (05:33)
[2017-02-14 07:38] VITALS: BP 150/58
[2017-02-14] MEDS: LISINOPRIL 20 MG TABLET PO SCH (08:47)
[2017-02-14] MEDS: PANTOPRAZOLE 40 MG TABLET.DR. PO SCH (08:47)
[2017-02-14] MEDS: HYDROCHLOROTHIAZIDE 25 MG TABLET PO SCH (08:47)
--- NOTE | 2017-02-14 08:56 | PDOC ---
SURGICAL PROGRESS NOTE Subjective sore back hurts, would like to get up Vital Signs Vital Signs Date Time Temp Pulse Resp B/P Pulse Ox O2 Delivery O2 Flow Rate FiO2 02/14/17 08:47 88 150/58 02/14/17 08:29 Nasal Cannula 2.0 02/14/17 07:38 99.5 18 93 99.5 I&O Intake and Output 02/14/17 06:59 Intake Total 550 ml Output Total 2320 ml Balance -1770 ml IV Total 550 ml Output Urine Total 1700 ml Stool Total 400 ml Drainage Total 220 ml PATIENT HAS A LINDSEY: Yes (dc today) General: Alert, Oriented X3, Cooperative, No acute distress Abdomen: Soft, Other (ND, incision cd/i, no erythema, stoma pink, g tube in place) Labs Laboratory Tests Test 02/13/17 05:05 White Blood Count 12.4x10^3/uL (4.0-11.0) Red Blood Count 4.20x10^6/uL (3.50-5.40) Hemoglobin 11.7g/dL (12.0-15.5) Hematocrit 35.9% (36.0-47.0) Mean Corpuscular Volume 86fL (79-100) Mean Corpuscular Hemoglobin 28pg (25-35) Mean Corpuscular Hemoglobin Concent 33g/dL (31-37) Red Cell Distribution Width 17.6% (11.5-14.5) Platelet Count 536x10^3/uL (140-400) Sodium Level 135mmol/L (136-145) Potassium Level 3.3mmol/L (3.5-5.1) Chloride Level 99mmol/L (98-107) Carbon Dioxide Level 27mmol/L (21-32) Anion Gap 9 (6-14) Blood Urea Nitrogen 18mg/dL (7-20) Creatinine 0.7mg/dL (0.6-1.0) Estimated GFR (Cockcroft-Gault) 85.6 Glucose Level 80mg/dL (70-99) Calcium Level 8.0mg/dL (8.5-10.1) Problem List Problems Medical Problems: (1) Colon cancer Status: Acute (2) Colon carcinoma metastatic to multiple sites Status: Acute (3) Leukocytosis Status: Acute (4) Postoperative abdominal pain Status: Acute Assessment/Plan POD#1 g tube, loop ileostomy clamp g tube for 2 hrs with po meds ambulate Dc lindsey npo, await bowel function return Problems: JESSIKA DENNIS [employer] WORK[employer] Feb 14, 2017 08:56
--- NOTE | 2017-02-14 10:42 | PDOC ---
PROGRESS NOTES Chief Complaint Chief Complaint a/p 1. Possible ileus, not resolving, 2. Stage IV colon cancer, with mesenteric involvement, extensive omental caking, diffuse metastasis throughout the peritoneal cavity, s /p s/p colectomy prior to this admission Plan s/p palliative loop ileostomy placement and G-tube placement Diet per PPN for now Pain control with PRN morphine Labs reviewed. History of Present Illness History of Present Illness no fever doing better discomfit in belly better Vitals Vitals Vital Signs Date Time Temp Pulse Resp B/P Pulse Ox O2 Delivery O2 Flow Rate FiO2 02/14/17 08:47 88 150/58 02/14/17 08:29 Nasal Cannula 2.0 02/14/17 07:38 99.5 18 93 99.5 Physical Exam General: Alert, Oriented X3, Cooperative, No acute distress Heart: Regular rate, Normal S1, Normal S2 Lungs: Clear, Other Abdomen: Soft, Other (distented, G tube ) Extremities: No clubbing, No cyanosis, No edema, Normal pulses, No tenderness/ swelling Skin: No rashes, No breakdown, No significant lesion Assessment and Plan Assessmemt and Plan Problems Medical Problems: (1) Colon cancer Status: Acute (2) Colon carcinoma metastatic to multiple sites Status: Acute (3) Leukocytosis Status: Acute (4) Postoperative abdominal pain Status: Acute Problems: Comment Review of Relevant I have reviewed the following items siena (where applicable) has been applied. Labs Laboratory Tests Test 02/13/17 05:05 White Blood Count 12.4x10^3/uL (4.0-11.0) Red Blood Count 4.20x10^6/uL (3.50-5.40) Hemoglobin 11.7g/dL (12.0-15.5) Hematocrit 35.9% (36.0-47.0) Mean Corpuscular Volume 86fL (79-100) Mean Corpuscular Hemoglobin 28pg (25-35) Mean Corpuscular Hemoglobin Concent 33g/dL (31-37) Red Cell Distribution Width 17.6% (11.5-14.5) Platelet Count 536x10^3/uL (140-400) Sodium Level 135mmol/L (136-145) Potassium Level 3.3mmol/L (3.5-5.1) Chloride Level 99mmol/L (98-107) Carbon Dioxide Level 27mmol/L (21-32) Anion Gap 9 (6-14) Blood Urea Nitrogen 18mg/dL (7-20) Creatinine 0.7mg/dL (0.6-1.0) Estimated GFR (Cockcroft-Gault) 85.6 Glucose Level 80mg/dL (70-99) Calcium Level 8.0mg/dL (8.5-10.1) Microbiology 02/09/17 Urine Culture - Final, Complete 02/09/17 Urine Culture Result 1 (WADE) - Final, Complete Medications Current Medications Sodium Chloride (Iv Sodium Chloride 0.9% 1000ml Bag) 1,000 ml @ 1,000 mls/hr 1X ONCE IV Last administered on 02/09/17 01:38; Start 02/09/17 at 01:30; Stop 02/09/17 at 02:29; Status DC Ondansetron HCl (Zofran) 4 mg 1X ONCE IV Last administered on 02/09/17 01:38 ; Start 02/09/17 at 01:30; Stop 02/09/17 at 01:31; Status DC Fentanyl Citrate (Fentanyl 2ml Vial) 50 mcg PRN Q15MIN PRN IV PAIN GREATER THAN 3/10 Last administered on 02/09/17 01:59; Start 02/09/17 at 01:30; Stop at 07:41; Status DC Iohexol (Omnipaque 300 Mg/ml) 75 ml 1X ONCE IV Last administered on 02/09/17 01:36; Start 02/09/17 at 01:45; Stop 02/09/17 at 01:46; Status DC Info (Do NOT chart on this entry -- for MONITORING) 1 each PRN DAILY PRN MC SEE COMMENTS; Start 02/09/17 at 01:45; Stop 02/11/17 at 01:44; Status DC Ondansetron HCl (Zofran) 4 mg PRN Q8HRS PRN IV NAUSEA/VOMITING Last administered on 02/09/17 03:55; Start 02/09/17 at 02:45; Stop 02/09/17 at 07:41 ; Status DC Morphine Sulfate 4 mg 4 mg PRN Q2HR PRN IV PAIN Last administered on 02/09/17 20:24; Start 02/09/17 at 02:45; Stop 02/10/17 at 02:44; Status DC Sodium Chloride (Iv Sodium Chloride 0.9% 1000ml Bag) 1,000 ml @ 125 mls/hr Q8H IV Last administered on 02/09/17 03:55; Start 02/09/17 at 02:45; Stop at 10:13; Status DC Ondansetron HCl (Zofran) 4 mg PRN Q6HRS PRN IV NAUSEA/VOMITING Last administered on 02/12/17 22:58; Start 02/09/17 at 07:40; Stop 02/14/17 at 10:09 ; Status DC Fentanyl Citrate (Fentanyl 2ml Vial) 50 mcg PRN Q2HR PRN IV PAIN Last administered on 02/13/17 22:35; Start 02/09/17 at 07:45 Famotidine 20 mg 20 mg BID IVP Last administered on 02/10/17 10:27; Start at 09:00; Stop 02/10/17 at 12:45; Status DC Levothyroxine Sodium 25 mcg/ Sodium Chloride 5 ml @ 100 mls/hr DAILY IVP Last administered on 02/10/17 10:27; Start 02/09/17 at 09:00; Stop 02/10/17 at 12:45 ; Status DC Sodium Chloride 1,000 ml @ 100 mls/hr Q10H IV ; Start 02/09/17 at 10:12; Stop 02/09/17 at 10:17; Status DC Sodium Chloride 1,000 ml @ 100 mls/hr Q10H IV ; Start 02/09/17 at 20:00; Stop 02/09/17 at 19:30; Status Cancel Sodium Chloride (Iv Sodium Chloride 0.9% 1000ml Bag) 1,000 ml @ 100 mls/hr Q10H IV Last administered on 02/10/17 10:28; Start 02/09/17 at 20:00; Stop at 12:45; Status DC Levothyroxine Sodium (Synthroid) 50 mcg DAILY07 PO Last administered on 05:33; Start 02/11/17 at 07:00 Docusate Sodium (Colace) 100 mg PRN DAILY PRN PO CONSTIPATION Last administered on 02/12/17 08:32; Start 02/10/17 at 12:45 Oxycodone/ Acetaminophen (Percocet 7.5/ 325) 1 tab PRN Q4HRS PRN PO MODERATE PAIN Last administered on 02/11/17 12:51; Start 02/10/17 at 12:45 Polyethylene Glycol (miraLAX PACKET) 17 gm PRN DAILY PRN PO CONSTIPATION; Start 02/10/17 at 12:45 Zolpidem Tartrate (Ambien) 5 mg QHS PO Last administered on 02/13/17 20:35; Start 02/10/17 at 21:00 Non-Formulary Medication 1 tab DAILY PO ; Start 02/11/17 at 09:00; Status UNV Prochlorperazine Maleate (Compazine) 10 mg Q8HRS PO Last administered on 05:24; Start 02/10/17 at 14:00 Lisinopril (Prinivil) 20 mg DAILY PO Last administered on 02/14/17 08:47; Start 02/10/17 at 13:00 Hydrochlorothiazide (Hydrodiuril) 25 mg DAILY PO Last administered on 08:47; Start 02/10/17 at 13:00 Multi-Ingredient Mouthwash/Gargle (Gi Cocktail Single Dose) 15 ml PRN Q6HRS PRN SWSW GAS / BLOATING Last administered on 02/11/17 21:19; Start 02/11/17 at 18:30 Pantoprazole Sodium (Protonix) 40 mg DAILYAC PO Last administered on 02/14/17 08:47; Start 02/11/17 at 18:45 Fentanyl Citrate (Fentanyl 2ml Vial) 50 mcg 1X ONCE IV Last administered on 22:01; Start 02/11/17 at 21:30; Stop 02/11/17 at 21:31; Status DC Fentanyl Citrate 100 mcg 100 mcg PRN Q2HR PRN IV PAIN Last administered on 02/14 08:29; Start 02/11/17 at 21:30 Cefoxitin Sodium/ Sodium Chloride (Mefoxin/Iv Sodium Chloride 0.9% 100ml) 100 ml @ 200 mls/hr 1X PREOP IV Last administered on 02/13/17 13:37; Start 02/12 at 11:15 Ondansetron HCl (Zofran) 4 mg PRN Q6HRS PRN IV NAUSEA/VOMITING; Start 02/13/17 at 07:00; Stop 02/14/17 at 06:59; Status DC Fentanyl Citrate (Fentanyl 2ml Vial) 25 mcg PRN Q5MIN PRN IV MILD PAIN; Start 02/13/17 at 07:00; Stop 02/14/17 at 06:59; Status DC Fentanyl Citrate (Fentanyl 2ml Vial) 50 mcg PRN Q5MIN PRN IV MODERATE PAIN Last administered on 02/13/17 16:10; Start 02/13/17 at 07:00; Stop 02/14/17 at 06:59; Status DC Morphine Sulfate 1 mg 1 mg PRN Q10MIN PRN IV SEVERE PAIN Last administered on 15:45; Start 02/13/17 at 07:00; Stop 02/14/17 at 06:59; Status DC Lactated Ringer's (Iv Lactated Ringers) 1,000 ml @ 30 mls/hr Q24H IV Last administered on 02/13/17 12:39; Start 02/13/17 at 07:00; Stop 02/13/17 at 18:59 ; Status DC Lidocaine HCl 2 ml PRN 1X PRN ID PRIOR TO IV START; Start 02/13/17 at 07:00; Stop 02/14/17 at 06:59; Status DC Hydromorphone HCl (Dilaudid) 0.5 mg PRN Q10MIN PRN IV SEV PAIN, Second choice Last administered on 02/13/17 16:12; Start 02/13/17 at 07:00; Stop 02/14/17 at 06:59; Status DC Prochlorperazine Edisylate 5 mg 5 mg PACU PRN PRN IV NAUSEA, MRX1; Start at 07:00; Stop 02/14/17 at 06:59; Status DC Sodium Chloride 1,000 ml @ 75 mls/hr [id number] IV Last administered on 05:36; Start 02/12/17 at 15:30; Stop 02/13/17 at 10:35; Status DC Potassium Chloride/Sodium Chloride 1,000 ml @ 75 mls/hr [id number] IV Last administered on 02/14/17t 05:25; Start 02/13/17 at 10:45 Cefoxitin Sodium (Mefoxin 2gm Ivpb For Omni) 100 ml @ As Directed STK-MED ONCE IV ; Start 02/13/17 at 11:51; Stop 02/13/17 at 11:52; Status DC Bupivacaine HCl/ Epinephrine Bitart (Marcaine-Epi 0.5%-1:[id number]) 50 ml STK-MED ONCE .ROUTE Last administered on 02/13/17t 13:42; Start 02/13/17 at 12:40; Stop 02/13/17 at 12:41; Status DC Fentanyl Citrate (Fentanyl 2ml Vial) 100 mcg STK-MED ONCE .ROUTE ; Start at 13:11; Stop 02/13/17 at 13:12; Status DC Rocuronium Combs (Zemuron) 50 mg STK-MED ONCE .ROUTE ; Start 02/13/17 at 13:12 ; Stop 02/13/17 at 13:13; Status DC Desflurane (Suprane) 30 ml STK-MED ONCE IH ; Start 02/13/17 at 13:13; Stop 02/13 at 13:14; Status DC Lidocaine HCl (Lidocaine HCl 2% Abboject) 100 mg STK-MED ONCE .ROUTE ; Start at 13:14; Stop 02/13/17 at 13:15; Status DC Dexamethasone Sodium Phosphate (Decadron) 20 mg STK-MED ONCE .ROUTE ; Start at 13:14; Stop 02/13/17 at 13:15; Status DC Ondansetron HCl (Zofran) 4 mg STK-MED ONCE .ROUTE ; Start 02/13/17 at 13:14; Stop 02/13/17 at 13:15; Status DC Vancomycin HCl 1 gm 1 gm STK-MED ONCE .ROUTE ; Start 02/13/17 at 13:14; Stop at 13:15; Status DC Propofol (Diprivan) 20 ml @ As Directed STK-MED ONCE IV ; Start 02/13/17 at 13: 14; Stop 02/13/17 at 13:15; Status DC Esmolol HCl (Brevibloc) 100 mg STK-MED ONCE IV ; Start 02/13/17 at 13:22; Stop 02/13/17 at 13:23; Status DC Ephedrine Sulfate 50 mg STK-MED ONCE IV ; Start 02/13/17 at 13:38; Stop at 13:39; Status DC Glycopyrrolate (Robinul) 1 mg STK-MED ONCE .ROUTE ; Start 02/13/17 at 13:53; Stop 02/13/17 at 13:54; Status DC Neostigmine Methylsulfate 5 mg STK-MED ONCE .ROUTE ; Start 02/13/17 at 13:53; Stop 02/13/17 at 13:54; Status DC Fentanyl Citrate (Fentanyl 2ml Vial) 100 mcg STK-MED ONCE .ROUTE ; Start at 14:11; Stop 02/13/17 at 14:12; Status DC Labetalol HCl (Normodyne) 20 mg STK-MED ONCE .ROUTE ; Start 02/13/17 at 14:28; Stop 02/13/17 at 14:29; Status DC Morphine Sulfate 10 mg STK-MED ONCE .ROUTE ; Start 02/13/17 at 14:53; Stop 02/13 at 14:54; Status DC Enoxaparin Sodium (Lovenox 40mg Syringe) 40 mg Q24H SQ Last administered on t 16:53; Start 02/13/17 at 16:00 Sodium Chloride (Normal Saline Flush) 3 ml QSHIFT PRN IV AFTER MEDS AND BLOOD DRAWS; Start 02/13/17 at 15:15 Ondansetron HCl (Zofran) 4 mg PRN Q6HRS PRN IV NAUESA, 1ST CHOICE; Start at 15:15 Active Scripts Active Compazine (Prochlorperazine Maleate) 10 Mg Tablet 10 Mg PO Q8HRS Docusate Sodium 100 Mg Capsule 100 Mg PO PRN DAILY PRN Oxycodon-Acetaminophen 7.5-325 (Oxycodone Hcl/Acetaminophen) 1 Each Tablet 1 Tab PO PRN Q4HRS PRN Miralax (Polyethylene Glycol 3350) 17 Gm Powd.pack 17 Gm PO PRN DAILY PRN Reported Ambien (Zolpidem Tartrate) 5 Mg Tablet 1 Tab PO QHS Lisinopril-Hctz 20-25 Mg Tab (Lisinopril/Hydrochlorothiazide) 1 Each Tablet 1 Tab PO DAILY Levothyroxine Sodium 50 Mcg Tablet 1 Tab PO DAILY Vitals/I & O Vital Sign - Last 24 Hours 02/13/17 02/13/17 02/13/17 02/13/17 11:00 11:19 12:36 12:55 Temp 98.0 97.6 98.0 97.6 Pulse 66 71 Resp 16 18 12 12 B/P 114/57 145/66 Pulse Ox 96 96 95 95 O2 Delivery Room Air Room Air Room Air Room Air 02/13/17 02/13/17 02/13/17 02/13/17 14:55 15:05 15:08 15:10 Temp 97.9 97.9 Pulse 79 78 Resp 16 18 18 B/P 197/70 186/64 Pulse Ox 100 100 100 O2 Delivery Simple Mask Mask Simple Mask O2 Flow Rate 10 10 2.0 10 02/13/17 02/13/17 02/13/17 02/13/17 15:21 15:25 15:26 15:39 Pulse 79 Resp 16 16 18 16 B/P 158/63 Pulse Ox 93 93 O2 Delivery Simple Mask Nasal Cannula Room Air O2 Flow Rate 2 02/13/17 02/13/17 02/13/17 02/13/17 15:40 15:45 15:51 15:55 Pulse 87 90 Resp 16 18 18 14 B/P 165/60 163/54 Pulse Ox 95 97 O2 Delivery Nasal Cannula Room Air Nasal Cannula Nasal Cannula O2 Flow Rate 2 2 02/13/17 02/13/17 02/13/17 02/13/17 16:01 16:05 16:10 16:10 Pulse 82 Resp 16 18 18 16 B/P 157/70 Pulse Ox 97 97 97 97 O2 Delivery Nasal Cannula Nasal Cannula Nasal Cannula Nasal Cannula O2 Flow Rate 2.0 2.0 2.0 2 02/13/17 02/13/17 02/13/17 02/13/17 16:12 16:25 16:40 17:00 Temp 98.2 98.2 Pulse 84 84 78 Resp 16 14 12 B/P 142/53 121/63 148/55 Pulse Ox 97 93 96 O2 Delivery Nasal Cannula Nasal Cannula Nasal Cannula O2 Flow Rate 2.0 2 2 02/13/17 02/13/17 02/13/1702/13/17 17:05 17:06 17:06 17:15 Pulse 83 Resp 16 16 16 B/P 154/56 O2 Delivery Nasal Cannula Nasal Cannula Nasal Cannula O2 Flow Rate 2.0 2.0 2.0 02/13/17 02/13/17 02/13/17 02/13/17 17:30 17:45 18:05 18:15 Pulse 74 78 76 Resp 16 B/P 157/49 126/46 130/45 O2 Delivery Nasal Cannula O2 Flow Rate 2.0 02/13/17 02/13/17 02/13/17 02/13/17 18:44 20:00 20:37 21:07 Pulse 80 Resp 17 B/P 117/48 O2 Delivery Nasal Cannula Nasal Cannula O2 Flow Rate 2.0 2.0 2.0 02/13/17 02/13/17 02/13/17 02/14/17 22:35 23:05 23:21 03:20 Temp 98.1 98.3 98.1 98.3 Pulse 81 84 Resp 18 17 18 18 B/P 120/45 141/44 Pulse Ox 97 97 O2 Delivery Nasal Cannula Nasal Cannula Nasal Cannula Nasal Cannula O2 Flow Rate 2.0 2.0 2.0 02/14/17 02/14/17 02/14/17 02/14/17 05:24 05:50 07:38 08:00 Temp 99.5 99.5 Pulse 88 Resp 20 16 18 B/P 150/58 Pulse Ox 93 O2 Delivery Room Air Room Air Nasal Cannula Nasal Cannula O2 Flow Rate 2.0 2.0 02/14/17 02/14/17 08:29 08:47 Pulse 88 B/P 150/58 O2 Delivery Nasal Cannula O2 Flow Rate 2.0 Intake and Output 02/13/17 02/13/17 02/14/17 15:00 23:00 07:00 Intake Total 550 ml Output Total 720 ml 1600 ml Balance 550 ml -720 ml -1600 ml BRANDAN STEPHEN MD Feb 14, 2017 10:42
[2017-02-14 11:56] VITALS: BP 155/65
[2017-02-14] MEDS: OXYCODONE/APAP 7.5/325 TABLET. PO PRN ×2 (13:00→17:41)
[2017-02-14] MEDS: AMINO AC 3%/ELECTROLYTE/GLYCER 1,000 ML IV SCH (14:30)
[2017-02-14 15:07] VITALS: BP 146/57
[2017-02-14 19:43] VITALS: BP 132/63
[2017-02-14] MEDS ORDERED: ONDANSETRON PF 4 MG/2 ML VIAL. IV PRN (20:15)
[2017-02-14] MEDS: ZOLPIDEM 5 MG TABLET. PO SCH (22:19)
[2017-02-14 23:11] VITALS: BP 136/63
[2017-02-15] MEDS: fentaNYL PF VIAL 100 MCG/2 ML VIAL IV PRN ×10 (01:44→22:39)
[2017-02-15] MEDS: AMINO AC 3%/ELECTROLYTE/GLYCER 1,000 ML IV SCH ×2 (04:05→12:34)
[2017-02-15 07:25] VITALS: BP 135/61
[2017-02-15 07:38] LABS: CALCIUM 8.3 mg/dL (8.5-10.1); CREATININE 0.6 mg/dL (0.6-1.0); GFR 102.3; POTASSIUM 3.8 mmol/L (3.5-5.1)
[2017-02-15] MEDS: LEVOTHYROXINE 50 MCG TABLET PO SCH (08:26)
[2017-02-15] MEDS: LISINOPRIL 20 MG TABLET PO SCH (08:26)
[2017-02-15] MEDS: PANTOPRAZOLE 40 MG TABLET.DR. PO SCH (08:26)
[2017-02-15] MEDS: HYDROCHLOROTHIAZIDE 25 MG TABLET PO SCH (08:26)
[2017-02-15] MEDS: PROCHLORPERAZINE 5 MG TABLET. PO SCH ×3 (08:27→22:35)
[2017-02-15 11:05] VITALS: BP 139/51
--- NOTE | 2017-02-15 13:02 | PDOC ---
PROGRESS NOTES Chief Complaint Chief Complaint a/p 1. Possible ileus, not resolving, 2. Stage IV colon cancer, with mesenteric involvement, extensive omental caking, diffuse metastasis throughout the peritoneal cavity, s /p s/p colectomy prior to this admission Plan s/p palliative loop ileostomy placement and G-tube placement Diet per PPN for now Pain control with PRN fentanyl Labs reviewed. History of Present Illness History of Present Illness pain not controlled no fever no chills. Vitals Vitals Vital Signs Date Time Temp Pulse Resp B/P Pulse Ox O2 Delivery O2 Flow Rate FiO2 02/15/17 11:56 16 Room Air 02/15/17 11:05 97.9 72 139/51 90 97.9 02/14/17 19:19 2.0 Physical Exam General: Alert, Oriented X3, Cooperative, No acute distress Heart: Regular rate, Normal S1, Normal S2 Lungs: Clear, Other Abdomen: Soft, Other (distented, G tube ) Extremities: No clubbing, No cyanosis, No edema, Normal pulses, No tenderness/ swelling Skin: No rashes, No breakdown, No significant lesion Labs LABS Laboratory Tests Test 02/15/17 06:55 Sodium Level 132mmol/L (136-145) Potassium Level 3.8mmol/L (3.5-5.1) Chloride Level 96mmol/L (98-107) Carbon Dioxide Level 30mmol/L (21-32) Anion Gap 6 (6-14) Blood Urea Nitrogen 19mg/dL (7-20) Creatinine 0.6mg/dL (0.6-1.0) Estimated GFR (Cockcroft-Gault) 102.3 Glucose Level 113mg/dL (70-99) Calcium Level 8.3mg/dL (8.5-10.1) Assessment and Plan Assessmemt and Plan Problems Medical Problems: (1) Colon cancer Status: Acute (2) Colon carcinoma metastatic to multiple sites Status: Acute (3) Leukocytosis Status: Acute (4) Postoperative abdominal pain Status: Acute Problems: Comment Review of Relevant I have reviewed the following items siena (where applicable) has been applied. Labs Laboratory Tests Test 02/15/17 06:55 Sodium Level 132mmol/L (136-145) Potassium Level 3.8mmol/L (3.5-5.1) Chloride Level 96mmol/L (98-107) Carbon Dioxide Level 30mmol/L (21-32) Anion Gap 6 (6-14) Blood Urea Nitrogen 19mg/dL (7-20) Creatinine 0.6mg/dL (0.6-1.0) Estimated GFR (Cockcroft-Gault) 102.3 Glucose Level 113mg/dL (70-99) Calcium Level 8.3mg/dL (8.5-10.1) Laboratory Tests Test 02/15/17 06:55 Sodium Level 132mmol/L (136-145) Potassium Level 3.8mmol/L (3.5-5.1) Chloride Level 96mmol/L (98-107) Carbon Dioxide Level 30mmol/L (21-32) Anion Gap 6 (6-14) Blood Urea Nitrogen 19mg/dL (7-20) Creatinine 0.6mg/dL (0.6-1.0) Estimated GFR (Cockcroft-Gault) 102.3 Glucose Level 113mg/dL (70-99) Calcium Level 8.3mg/dL (8.5-10.1) Microbiology 02/09/17 Urine Culture - Final, Complete 02/09/17 Urine Culture Result 1 (WADE) - Final, Complete Medications Current Medications Sodium Chloride (Iv Sodium Chloride 0.9% 1000ml Bag) 1,000 ml @ 1,000 mls/hr 1X ONCE IV Last administered on 02/09/17 01:38; Start 02/09/17 at 01:30; Stop 02/09/17 at 02:29; Status DC Ondansetron HCl (Zofran) 4 mg 1X ONCE IV Last administered on 02/09/17 01:38 ; Start 02/09/17 at 01:30; Stop 02/09/17 at 01:31; Status DC Fentanyl Citrate (Fentanyl 2ml Vial) 50 mcg PRN Q15MIN PRN IV PAIN GREATER THAN 3/10 Last administered on 02/09/17 01:59; Start 02/09/17 at 01:30; Stop at 07:41; Status DC Iohexol (Omnipaque 300 Mg/ml) 75 ml 1X ONCE IV Last administered on 02/09/17 01:36; Start 02/09/17 at 01:45; Stop 02/09/17 at 01:46; Status DC Info (Do NOT chart on this entry -- for MONITORING) 1 each PRN DAILY PRN MC SEE COMMENTS; Start 02/09/17 at 01:45; Stop 02/11/17 at 01:44; Status DC Ondansetron HCl (Zofran) 4 mg PRN Q8HRS PRN IV NAUSEA/VOMITING Last administered on 02/09/17 03:55; Start 02/09/17 at 02:45; Stop 02/09/17 at 07:41 ; Status DC Morphine Sulfate 4 mg 4 mg PRN Q2HR PRN IV PAIN Last administered on 02/09/17 20:24; Start 02/09/17 at 02:45; Stop 02/10/17 at 02:44; Status DC Sodium Chloride (Iv Sodium Chloride 0.9% 1000ml Bag) 1,000 ml @ 125 mls/hr Q8H IV Last administered on 02/09/17 03:55; Start 02/09/17 at 02:45; Stop at 10:13; Status DC Ondansetron HCl (Zofran) 4 mg PRN Q6HRS PRN IV NAUSEA/VOMITING Last administered on 02/12/17 22:58; Start 02/09/17 at 07:40; Stop 02/14/17 at 10:09 ; Status DC Fentanyl Citrate (Fentanyl 2ml Vial) 50 mcg PRN Q2HR PRN IV PAIN Last administered on 02/15/17 04:06; Start 02/09/17 at 07:45 Famotidine 20 mg 20 mg BID IVP Last administered on 02/10/17 10:27; Start at 09:00; Stop 02/10/17 at 12:45; Status DC Levothyroxine Sodium 25 mcg/ Sodium Chloride 5 ml @ 100 mls/hr DAILY IVP Last administered on 02/10/17 10:27; Start 02/09/17 at 09:00; Stop 02/10/17 at 12:45 ; Status DC Sodium Chloride 1,000 ml @ 100 mls/hr Q10H IV ; Start 02/09/17 at 10:12; Stop 02/09/17 at 10:17; Status DC Sodium Chloride 1,000 ml @ 100 mls/hr Q10H IV ; Start 02/09/17 at 20:00; Stop 02/09/17 at 19:30; Status Cancel Sodium Chloride (Iv Sodium Chloride 0.9% 1000ml Bag) 1,000 ml @ 100 mls/hr Q10H IV Last administered on 02/10/17 10:28; Start 02/09/17 at 20:00; Stop at 12:45; Status DC Levothyroxine Sodium (Synthroid) 50 mcg DAILY07 PO Last administered on 08:26; Start 02/11/17 at 07:00 Docusate Sodium (Colace) 100 mg PRN DAILY PRN PO CONSTIPATION Last administered on 02/12/17 08:32; Start 02/10/17 at 12:45 Oxycodone/ Acetaminophen (Percocet 7.5/ 325) 1 tab PRN Q4HRS PRN PO MODERATE PAIN Last administered on 02/14/17 17:41; Start 02/10/17 at 12:45 Polyethylene Glycol (miraLAX PACKET) 17 gm PRN DAILY PRN PO CONSTIPATION; Start 02/10/17 at 12:45 Zolpidem Tartrate (Ambien) 5 mg QHS PO Last administered on 02/14/17 22:19; Start 02/10/17 at 21:00 Non-Formulary Medication 1 tab DAILY PO ; Start 02/11/17 at 09:00; Status UNV Prochlorperazine Maleate (Compazine) 10 mg Q8HRS PO Last administered on 12:33; Start 02/10/17 at 14:00 Lisinopril (Prinivil) 20 mg DAILY PO Last administered on 02/15/17 08:26; Start 02/10/17 at 13:00 Hydrochlorothiazide (Hydrodiuril) 25 mg DAILY PO Last administered on 08:26; Start 02/10/17 at 13:00 Multi-Ingredient Mouthwash/Gargle (Gi Cocktail Single Dose) 15 ml PRN Q6HRS PRN SWSW GAS / BLOATING Last administered on 02/11/17 21:19; Start 02/11/17 at 18:30 Pantoprazole Sodium (Protonix) 40 mg DAILYAC PO Last administered on 02/15/17 08:26; Start 02/11/17 at 18:45 Fentanyl Citrate (Fentanyl 2ml Vial) 50 mcg 1X ONCE IV Last administered on 22:01; Start 02/11/17 at 21:30; Stop 02/11/17 at 21:31; Status DC Fentanyl Citrate 100 mcg 100 mcg PRN Q2HR PRN IV PAIN Last administered on 02/15 11:29; Start 02/11/17 at 21:30 Cefoxitin Sodium/ Sodium Chloride (Mefoxin/Iv Sodium Chloride 0.9% 100ml) 100 ml @ 200 mls/hr 1X PREOP IV Last administered on 02/13/17 13:37; Start 02/12 at 11:15 Ondansetron HCl (Zofran) 4 mg PRN Q6HRS PRN IV NAUSEA/VOMITING; Start 02/13/17 at 07:00; Stop 02/14/17 at 06:59; Status DC Fentanyl Citrate (Fentanyl 2ml Vial) 25 mcg PRN Q5MIN PRN IV MILD PAIN; Start 02/13/17 at 07:00; Stop 02/14/17 at 06:59; Status DC Fentanyl Citrate (Fentanyl 2ml Vial) 50 mcg PRN Q5MIN PRN IV MODERATE PAIN Last administered on 02/13/17 16:10; Start 02/13/17 at 07:00; Stop 02/14/17 at 06:59; Status DC Morphine Sulfate 1 mg 1 mg PRN Q10MIN PRN IV SEVERE PAIN Last administered on 15:45; Start 02/13/17 at 07:00; Stop 02/14/17 at 06:59; Status DC Lactated Ringer's (Iv Lactated Ringers) 1,000 ml @ 30 mls/hr Q24H IV Last administered on 02/13/17 12:39; Start 02/13/17 at 07:00; Stop 02/13/17 at 18:59 ; Status DC Lidocaine HCl 2 ml PRN 1X PRN ID PRIOR TO IV START; Start 02/13/17 at 07:00; Stop 02/14/17 at 06:59; Status DC Hydromorphone HCl (Dilaudid) 0.5 mg PRN Q10MIN PRN IV SEV PAIN, Second choice Last administered on 4/26/17at 16:12; Start 02/13/17 at 07:00; Stop 02/14/17 at 06:59; Status DC Prochlorperazine Edisylate 5 mg 5 mg PACU PRN PRN IV NAUSEA, MRX1; Start at 07:00; Stop 02/14/17 at 06:59; Status DC Sodium Chloride 1,000 ml @ 75 mls/hr [id number] IV Last administered on 05:36; Start 02/12/17 at 15:30; Stop 02/13/17 at 10:35; Status DC Potassium Chloride/Sodium Chloride 1,000 ml @ 75 mls/hr [id number] IV Last administered on 02/14/17 05:25; Start 02/13/17 at 10:45; Stop 02/14/17 at 14:21 ; Status DC Cefoxitin Sodium (Mefoxin 2gm Ivpb For Omni) 100 ml @ As Directed STK-MED ONCE IV ; Start 02/13/17 at 11:51; Stop 02/13/17 at 11:52; Status DC Bupivacaine HCl/ Epinephrine Bitart (Marcaine-Epi 0.5%-1:[id number]) 50 ml STK-MED ONCE .ROUTE Last administered on 02/13/17 13:42; Start 02/13/17 at 12:40; Stop 02/13/17 at 12:41; Status DC Fentanyl Citrate (Fentanyl 2ml Vial) 100 mcg STK-MED ONCE .ROUTE ; Start at 13:11; Stop 02/13/17 at 13:12; Status DC Rocuronium [place] (Zemuron) 50 mg STK-MED ONCE .ROUTE ; Start 02/13/17 at 13:12 ; Stop 02/13/17 at 13:13; Status DC Desflurane (Suprane) 30 ml STK-MED ONCE IH ; Start 02/13/17 at 13:13; Stop 02/13 at 13:14; Status DC Lidocaine HCl (Lidocaine HCl 2% Abboject) 100 mg STK-MED ONCE .ROUTE ; Start at 13:14; Stop 02/13/17 at 13:15; Status DC Dexamethasone Sodium Phosphate (Decadron) 20 mg STK-MED ONCE .ROUTE ; Start at 13:14; Stop 02/13/17 at 13:15; Status DC Ondansetron HCl (Zofran) 4 mg STK-MED ONCE .ROUTE ; Start 02/13/17 at 13:14; Stop 02/13/17 at 13:15; Status DC Vancomycin HCl 1 gm 1 gm STK-MED ONCE .ROUTE ; Start 02/13/17 at 13:14; Stop at 13:15; Status DC Propofol (Diprivan) 20 ml @ As Directed STK-MED ONCE IV ; Start 02/13/17 at 13: 14; Stop 02/13/17 at 13:15; Status DC Esmolol HCl (Brevibloc) 100 mg STK-MED ONCE IV ; Start 02/13/17 at 13:22; Stop 02/13/17 at 13:23; Status DC Ephedrine Sulfate 50 mg STK-MED ONCE IV ; Start 02/13/17 at 13:38; Stop at 13:39; Status DC Glycopyrrolate (Robinul) 1 mg STK-MED ONCE .ROUTE ; Start 02/13/17 at 13:53; Stop 02/13/17 at 13:54; Status DC Neostigmine Methylsulfate 5 mg STK-MED ONCE .ROUTE ; Start 02/13/17 at 13:53; Stop 02/13/17 at 13:54; Status DC Fentanyl Citrate (Fentanyl 2ml Vial) 100 mcg STK-MED ONCE .ROUTE ; Start at 14:11; Stop 02/13/17 at 14:12; Status DC Labetalol HCl (Normodyne) 20 mg STK-MED ONCE .ROUTE ; Start 02/13/17 at 14:28; Stop 02/13/17 at 14:29; Status DC Morphine Sulfate 10 mg STK-MED ONCE .ROUTE ; Start 02/13/17 at 14:53; Stop 02/13 at 14:54; Status DC Enoxaparin Sodium (Lovenox 40mg Syringe) 40 mg Q24H SQ Last administered on t 16:53; Start 02/13/17 at 16:00; Stop 02/14/17 at 14:21; Status DC Sodium Chloride (Normal Saline Flush) 3 ml QSHIFT PRN IV AFTER MEDS AND BLOOD DRAWS; Start 02/13/17 at 15:15 Ondansetron HCl 4 mg 4 mg PRN Q6HRS PRN IV NAUESA, 1ST CHOICE; Start 02/13/17 at 15:15; Stop 02/14/17 at 14:21; Status DC Amino Acids/ Glycerin/ Electrolytes (Procalamine) 1,000 ml @ 80 mls/hr [id number] IV Last administered on 02/15/17 12:34; Start 02/14/17 at 14:30 Ondansetron HCl (Zofran) 4 mg PRN Q8HRS PRN IV NAUSEA/VOMITING Last administered on 02/14/17 21:07; Start 02/14/17 at 20:15 Active Scripts Active Compazine (Prochlorperazine Maleate) 10 Mg Tablet 10 Mg PO Q8HRS Docusate Sodium 100 Mg Capsule 100 Mg PO PRN DAILY PRN Oxycodon-Acetaminophen 7.5-325 (Oxycodone Hcl/Acetaminophen) 1 Each Tablet 1 Tab PO PRN Q4HRS PRN Miralax (Polyethylene Glycol 3350) 17 Gm Powd.pack 17 Gm PO PRN DAILY PRN Reported Ambien (Zolpidem Tartrate) 5 Mg Tablet 1 Tab PO QHS Lisinopril-Hctz 20-25 Mg Tab (Lisinopril/Hydrochlorothiazide) 1 Each Tablet 1 Tab PO DAILY Levothyroxine Sodium 50 Mcg Tablet 1 Tab PO DAILY Vitals/I & O Vital Sign - Last 24 Hours 02/14/17 02/14/17 02/14/17 02/14/17 15:07 16:23 17:41 18:35 Temp 98.2 98.2 Pulse 83 Resp 18 B/P 146/57 Pulse Ox 93 O2 Delivery Nasal Cannula Room Air Nasal Cannula Room Air O2 Flow Rate 2.0 02/14/17 02/14/17 02/14/17 02/14/17 19:19 19:19 19:43 21:08 Temp 99.0 99.0 Pulse 88 Resp 16 17 B/P 132/63 Pulse Ox 94 94 93 O2 Delivery Nasal Cannula Room Air Room Air O2 Flow Rate 2.0 2.0 02/14/17 02/14/17 02/15/17 02/15/17 23:11 23:40 01:44 02:10 Temp 99.7 99.7 Pulse 84 Resp 16 B/P 136/63 Pulse Ox 96 O2 Delivery Room Air Room Air Room Air Room Air 02/15/17 02/15/17 02/15/17 02/15/17 04:06 06:40 07:25 08:00 Temp 98.6 98.6 Pulse 78 Resp 17 18 B/P 135/61 Pulse Ox 91 O2 Delivery Room Air Room Air Room Air Room Air 02/15/17 02/15/17 02/15/17 02/15/17 08:26 08:27 11:05 11:29 Temp 97.9 97.9 Pulse 78 72 Resp 16 B/P 135/61 139/51 Pulse Ox 90 O2 Delivery Room Air Room Air Room Air 02/15/17 11:56 Resp 16 O2 Delivery Room Air Intake and Output 02/14/17 02/14/17 02/15/17 15:00 23:00 07:00 Intake Total 400 ml 410 ml Output Total 700 ml 1200 ml Balance -300 ml -790 ml Nutrition Consultation Dietary Evaluation: Recommendations by RD: Increase Calorie Intake, Protein supplementation, PPN/ TPN Comments: ensure TID - 350kcal and 20g protein per serving PPN @ 80ml/hr until intake improves to 50% at meals Expected Outcomes/Goals: to meet >75% est nutr needs Interpretation of weight loss: >5% in 1 month Malnutrition Findings: Food and Nutrition Intake (Mod: <75% est energy req 7days Weight Status: Obese BRANDAN STEPHEN MD Feb 15, 2017 13:02
[2017-02-15 14:43] VITALS: BP 129/64
--- NOTE | 2017-02-15 14:49 | PDOC ---
SURGICAL PROGRESS NOTE Subjective doing well, tolerated diet ostomy functioning Vital Signs Vital Signs Date Time Temp Pulse Resp B/P Pulse Ox O2 Delivery O2 Flow Rate FiO2 02/15/17 14:02 16 Room Air 02/15/17 11:05 97.9 72 139/51 90 97.9 02/14/17 19:19 2.0 I&O Intake and Output 02/15/17 07:00 Intake Total 810 ml Output Total 1900 ml Balance -1090 ml Intake Oral 810 ml Output Urine Total 500 ml Stool Total 1400 ml # Voids 2 General: Alert, Oriented X3, Cooperative, No acute distress Abdomen: Soft, Other (ostomy with stool, g tube to dd) Labs Laboratory Tests Test 02/15/17 06:55 Sodium Level 132mmol/L (136-145) Potassium Level 3.8mmol/L (3.5-5.1) Chloride Level 96mmol/L (98-107) Carbon Dioxide Level 30mmol/L (21-32) Anion Gap 6 (6-14) Blood Urea Nitrogen 19mg/dL (7-20) Creatinine 0.6mg/dL (0.6-1.0) Estimated GFR (Cockcroft-Gault) 102.3 Glucose Level 113mg/dL (70-99) Calcium Level 8.3mg/dL (8.5-10.1) Laboratory Tests Test 02/15/17 06:55 Sodium Level 132mmol/L (136-145) Potassium Level 3.8mmol/L (3.5-5.1) Chloride Level 96mmol/L (98-107) Carbon Dioxide Level 30mmol/L (21-32) Anion Gap 6 (6-14) Blood Urea Nitrogen 19mg/dL (7-20) Creatinine 0.6mg/dL (0.6-1.0) Estimated GFR (Cockcroft-Gault) 102.3 Glucose Level 113mg/dL (70-99) Calcium Level 8.3mg/dL (8.5-10.1) Problem List Problems Medical Problems: (1) Colon cancer Status: Acute (2) Colon carcinoma metastatic to multiple sites Status: Acute (3) Leukocytosis Status: Acute (4) Postoperative abdominal pain Status: Acute Assessment/Plan s/p ileostomy, g tube advance diet clamp g tube, drain if n/v Problems: NICKEL,JESSIKA L PERSONAL ATTENDANT Feb 15, 2017 14:48
[2017-02-15 19:48] VITALS: BP 118/51
[2017-02-15] MEDS: ZOLPIDEM 5 MG TABLET. PO SCH (22:35)
[2017-02-15 23:58] VITALS: BP 114/72
[2017-02-16] MEDS: fentaNYL PF VIAL 100 MCG/2 ML VIAL IV PRN ×7 (00:38→20:30)
[2017-02-16] MEDS: AMINO AC 3%/ELECTROLYTE/GLYCER 1,000 ML IV SCH ×2 (02:15→18:03)
[2017-02-16 03:13] VITALS: BP 156/55
[2017-02-16] MEDS: PROCHLORPERAZINE 5 MG TABLET. PO SCH ×3 (06:16→22:08)
[2017-02-16] MEDS: LEVOTHYROXINE 50 MCG TABLET PO SCH (06:17)
[2017-02-16 07:00] VITALS: BP 126/69
--- NOTE | 2017-02-16 08:21 | PDOC ---
PROGRESS NOTES Chief Complaint Chief Complaint a/p 1. Possible ileus, not resolving, 2. Stage IV colon cancer, with mesenteric involvement, extensive omental caking, diffuse metastasis throughout the peritoneal cavity, s /p s/p colectomy prior to this admission Plan s/p palliative loop ileostomy placement and G-tube placement Diet per PPN for now, 40mls/ hr Pain control with PRN fentanyl Labs reviewed. History of Present Illness History of Present Illness pain not controlled no fever no chills. Vitals Vitals Vital Signs Date Time Temp Pulse Resp B/P Pulse Ox O2 Delivery O2 Flow Rate FiO2 02/16/17 07:00 97.9 79 12 126/69 95 Room Air 97.9 Physical Exam General: Alert, Oriented X3, Cooperative, No acute distress Heart: Regular rate, Normal S1, Normal S2 Lungs: Clear, Other Abdomen: Soft Extremities: No clubbing, No cyanosis, No edema, Normal pulses, No tenderness/ swelling Skin: No rashes, No breakdown, No significant lesion Assessment and Plan Assessmemt and Plan Problems Medical Problems: (1) Colon cancer Status: Acute (2) Colon carcinoma metastatic to multiple sites Status: Acute (3) Leukocytosis Status: Acute (4) Postoperative abdominal pain Status: Acute Problems: Comment Review of Relevant I have reviewed the following items siena (where applicable) has been applied. Labs Laboratory Tests Test 02/15/17 06:55 Sodium Level 132mmol/L (136-145) Potassium Level 3.8mmol/L (3.5-5.1) Chloride Level 96mmol/L (98-107) Carbon Dioxide Level 30mmol/L (21-32) Anion Gap 6 (6-14) Blood Urea Nitrogen 19mg/dL (7-20) Creatinine 0.6mg/dL (0.6-1.0) Estimated GFR (Cockcroft-Gault) 102.3 Glucose Level 113mg/dL (70-99) Calcium Level 8.3mg/dL (8.5-10.1) Microbiology 02/09/17 Urine Culture - Final, Complete 02/09/17 Urine Culture Result 1 (WADE) - Final, Complete Medications Current Medications Sodium Chloride (Iv Sodium Chloride 0.9% 1000ml Bag) 1,000 ml @ 1,000 mls/hr 1X ONCE IV Last administered on 02/09/17t 01:38; Start 4/22/17 at 01:30; Stop 02/09/17 at 02:29; Status DC Ondansetron HCl (Zofran) 4 mg 1X ONCE IV Last administered on 02/09/17 01:38 ; Start 02/09/17 at 01:30; Stop 02/09/17 at 01:31; Status DC Fentanyl Citrate (Fentanyl 2ml Vial) 50 mcg PRN Q15MIN PRN IV PAIN GREATER THAN 3/10 Last administered on 02/09/17 01:59; Start 02/09/17 at 01:30; Stop at 07:41; Status DC Iohexol (Omnipaque 300 Mg/ml) 75 ml 1X ONCE IV Last administered on 02/09/17 01:36; Start 02/09/17 at 01:45; Stop 02/09/17 at 01:46; Status DC Info (Do NOT chart on this entry -- for MONITORING) 1 each PRN DAILY PRN MC SEE COMMENTS; Start 02/09/17 at 01:45; Stop 02/11/17 at 01:44; Status DC Ondansetron HCl (Zofran) 4 mg PRN Q8HRS PRN IV NAUSEA/VOMITING Last administered on 02/09/17 03:55; Start 02/09/17 at 02:45; Stop 02/09/17 at 07:41 ; Status DC Morphine Sulfate 4 mg 4 mg PRN Q2HR PRN IV PAIN Last administered on 02/09/17 20:24; Start 02/09/17 at 02:45; Stop 02/10/17 at 02:44; Status DC Sodium Chloride (Iv Sodium Chloride 0.9% 1000ml Bag) 1,000 ml @ 125 mls/hr Q8H IV Last administered on 02/09/17 03:55; Start 02/09/17 at 02:45; Stop at 10:13; Status DC Ondansetron HCl (Zofran) 4 mg PRN Q6HRS PRN IV NAUSEA/VOMITING Last administered on 02/12/17 22:58; Start 02/09/17 at 07:40; Stop 02/14/17 at 10:09 ; Status DC Fentanyl Citrate (Fentanyl 2ml Vial) 50 mcg PRN Q2HR PRN IV PAIN Last administered on 02/15/17 04:06; Start 02/09/17 at 07:45 Famotidine 20 mg 20 mg BID IVP Last administered on 02/10/17 10:27; Start at 09:00; Stop 02/10/17 at 12:45; Status DC Levothyroxine Sodium 25 mcg/ Sodium Chloride 5 ml @ 100 mls/hr DAILY IVP Last administered on 02/10/17 10:27; Start 02/09/17 at 09:00; Stop 02/10/17 at 12:45 ; Status DC Sodium Chloride 1,000 ml @ 100 mls/hr Q10H IV ; Start 02/09/17 at 10:12; Stop 02/09/17 at 10:17; Status DC Sodium Chloride 1,000 ml @ 100 mls/hr Q10H IV ; Start 02/09/17 at 20:00; Stop 02/09/17 at 19:30; Status Cancel Sodium Chloride (Iv Sodium Chloride 0.9% 1000ml Bag) 1,000 ml @ 100 mls/hr Q10H IV Last administered on 02/10/17 10:28; Start 02/09/17 at 20:00; Stop at 12:45; Status DC Levothyroxine Sodium (Synthroid) 50 mcg DAILY07 PO Last administered on 06:17; Start 02/11/17 at 07:00 Docusate Sodium (Colace) 100 mg PRN DAILY PRN PO CONSTIPATION Last administered on 02/12/17 08:32; Start 02/10/17 at 12:45 Oxycodone/ Acetaminophen (Percocet 7.5/ 325) 1 tab PRN Q4HRS PRN PO MODERATE PAIN Last administered on 02/14/17 17:41; Start 02/10/17 at 12:45 Polyethylene Glycol (miraLAX PACKET) 17 gm PRN DAILY PRN PO CONSTIPATION; Start 02/10/17 at 12:45 Zolpidem Tartrate (Ambien) 5 mg QHS PO Last administered on 02/15/17 22:35; Start 02/10/17 at 21:00 Non-Formulary Medication 1 tab DAILY PO ; Start 02/11/17 at 09:00; Status UNV Prochlorperazine Maleate (Compazine) 10 mg Q8HRS PO Last administered on 06:16; Start 02/10/17 at 14:00 Lisinopril (Prinivil) 20 mg DAILY PO Last administered on 02/15/17 08:26; Start 02/10/17 at 13:00 Hydrochlorothiazide (Hydrodiuril) 25 mg DAILY PO Last administered on 08:26; Start 02/10/17 at 13:00 Multi-Ingredient Mouthwash/Gargle (Gi Cocktail Single Dose) 15 ml PRN Q6HRS PRN SWSW GAS / BLOATING Last administered on 02/11/17 21:19; Start 02/11/17 at 18:30 Pantoprazole Sodium (Protonix) 40 mg DAILYAC PO Last administered on 02/15/17 08:26; Start 02/11/17 at 18:45 Fentanyl Citrate (Fentanyl 2ml Vial) 50 mcg 1X ONCE IV Last administered on 22:01; Start 02/11/17 at 21:30; Stop 02/11/17 at 21:31; Status DC Fentanyl Citrate 100 mcg 100 mcg PRN Q2HR PRN IV PAIN Last administered on 02/16 06:17; Start 02/11/17 at 21:30 Cefoxitin Sodium/ Sodium Chloride (Mefoxin/Iv Sodium Chloride 0.9% 100ml) 100 ml @ 200 mls/hr 1X PREOP IV Last administered on 02/13/17 13:37; Start 02/12 at 11:15; Stop 02/15/17 at 15:56; Status DC Ondansetron HCl (Zofran) 4 mg PRN Q6HRS PRN IV NAUSEA/VOMITING; Start 02/13/17 at 07:00; Stop 02/14/17 at 06:59; Status DC Fentanyl Citrate (Fentanyl 2ml Vial) 25 mcg PRN Q5MIN PRN IV MILD PAIN; Start 02/13/17 at 07:00; Stop 02/14/17 at 06:59; Status DC Fentanyl Citrate (Fentanyl 2ml Vial) 50 mcg PRN Q5MIN PRN IV MODERATE PAIN Last administered on 02/13/17 16:10; Start 02/13/17 at 07:00; Stop 02/14/17 at 06:59; Status DC Morphine Sulfate 1 mg 1 mg PRN Q10MIN PRN IV SEVERE PAIN Last administered on 15:45; Start 02/13/17 at 07:00; Stop 02/14/17 at 06:59; Status DC Lactated Ringer's (Iv Lactated Ringers) 1,000 ml @ 30 mls/hr Q24H IV Last administered on 02/13/17 12:39; Start 02/13/17 at 07:00; Stop 02/13/17 at 18:59 ; Status DC Lidocaine HCl 2 ml PRN 1X PRN ID PRIOR TO IV START; Start 02/13/17 at 07:00; Stop 02/14/17 at 06:59; Status DC Hydromorphone HCl (Dilaudid) 0.5 mg PRN Q10MIN PRN IV SEV PAIN, Second choice Last administered on 02/13/17 16:12; Start 02/13/17 at 07:00; Stop 02/14/17 at 06:59; Status DC Prochlorperazine Edisylate 5 mg 5 mg PACU PRN PRN IV NAUSEA, MRX1; Start at 07:00; Stop 02/14/17 at 06:59; Status DC Sodium Chloride 1,000 ml @ 75 mls/hr [id number] IV Last administered on 05:36; Start 02/12/17 at 15:30; Stop 02/13/17 at 10:35; Status DC Potassium Chloride/Sodium Chloride 1,000 ml @ 75 mls/hr [id number] IV Last administered on 02/14/17 05:25; Start 02/13/17 at 10:45; Stop 02/14/17 at 14:21 ; Status DC Cefoxitin Sodium (Mefoxin 2gm Ivpb For Omni) 100 ml @ As Directed STK-MED ONCE IV ; Start 02/13/17 at 11:51; Stop 02/13/17 at 11:52; Status DC Bupivacaine HCl/ Epinephrine Bitart (Marcaine-Epi 0.5%-1:[id number]) 50 ml STK-MED ONCE .ROUTE Last administered on 02/13/17 13:42; Start 02/13/17 at 12:40; Stop 02/13/17 at 12:41; Status DC Fentanyl Citrate (Fentanyl 2ml Vial) 100 mcg STK-MED ONCE .ROUTE ; Start at 13:11; Stop 02/13/17 at 13:12; Status DC Rocuronium [place] (Zemuron) 50 mg STK-MED ONCE .ROUTE ; Start 02/13/17 at 13:12 ; Stop 02/13/17 at 13:13; Status DC Desflurane (Suprane) 30 ml STK-MED ONCE IH ; Start 02/13/17 at 13:13; Stop 02/13 at 13:14; Status DC Lidocaine HCl (Lidocaine HCl 2% Abboject) 100 mg STK-MED ONCE .ROUTE ; Start at 13:14; Stop 02/13/17 at 13:15; Status DC Dexamethasone Sodium Phosphate (Decadron) 20 mg STK-MED ONCE .ROUTE ; Start at 13:14; Stop 02/13/17 at 13:15; Status DC Ondansetron HCl (Zofran) 4 mg STK-MED ONCE .ROUTE ; Start 02/13/17 at 13:14; Stop 02/13/17 at 13:15; Status DC Vancomycin HCl 1 gm 1 gm STK-MED ONCE .ROUTE ; Start 02/13/17 at 13:14; Stop at 13:15; Status DC Propofol (Diprivan) 20 ml @ As Directed STK-MED ONCE IV ; Start 02/13/17 at 13: 14; Stop 02/13/17 at 13:15; Status DC Esmolol HCl (Brevibloc) 100 mg STK-MED ONCE IV ; Start 02/13/17 at 13:22; Stop 02/13/17 at 13:23; Status DC Ephedrine Sulfate 50 mg STK-MED ONCE IV ; Start 02/13/17 at 13:38; Stop at 13:39; Status DC Glycopyrrolate (Robinul) 1 mg STK-MED ONCE .ROUTE ; Start 02/13/17 at 13:53; Stop 02/13/17 at 13:54; Status DC Neostigmine Methylsulfate 5 mg STK-MED ONCE .ROUTE ; Start 02/13/17 at 13:53; Stop 02/13/17 at 13:54; Status DC Fentanyl Citrate (Fentanyl 2ml Vial) 100 mcg STK-MED ONCE .ROUTE ; Start at 14:11; Stop 02/13/17 at 14:12; Status DC Labetalol HCl (Normodyne) 20 mg STK-MED ONCE .ROUTE ; Start 02/13/17 at 14:28; Stop 02/13/17 at 14:29; Status DC Morphine Sulfate 10 mg STK-MED ONCE .ROUTE ; Start 02/13/17 at 14:53; Stop 02/13 at 14:54; Status DC Enoxaparin Sodium (Lovenox 40mg Syringe) 40 mg Q24H SQ Last administered on 16:53; Start 02/13/17 at 16:00; Stop 02/14/17 at 14:21; Status DC Sodium Chloride (Normal Saline Flush) 3 ml QSHIFT PRN IV AFTER MEDS AND BLOOD DRAWS; Start 02/13/17 at 15:15 Ondansetron HCl 4 mg 4 mg PRN Q6HRS PRN IV NAUESA, 1ST CHOICE; Start 02/13/17 at 15:15; Stop 02/14/17 at 14:21; Status DC Amino Acids/ Glycerin/ Electrolytes (Procalamine) 1,000 ml @ 80 mls/hr [id number] IV Last administered on 02/16/17 02:15; Start 02/14/17 at 14:30 Ondansetron HCl (Zofran) 4 mg PRN Q8HRS PRN IV NAUSEA/VOMITING Last administered on 02/14/17 21:07; Start 02/14/17 at 20:15 Active Scripts Active Compazine (Prochlorperazine Maleate) 10 Mg Tablet 10 Mg PO Q8HRS Docusate Sodium 100 Mg Capsule 100 Mg PO PRN DAILY PRN Oxycodon-Acetaminophen 7.5-325 (Oxycodone Hcl/Acetaminophen) 1 Each Tablet 1 Tab PO PRN Q4HRS PRN Miralax (Polyethylene Glycol 3350) 17 Gm Powd.pack 17 Gm PO PRN DAILY PRN Reported Ambien (Zolpidem Tartrate) 5 Mg Tablet 1 Tab PO QHS Lisinopril-Hctz 20-25 Mg Tab (Lisinopril/Hydrochlorothiazide) 1 Each Tablet 1 Tab PO DAILY Levothyroxine Sodium 50 Mcg Tablet 1 Tab PO DAILY Vitals/I & O Vital Sign - Last 24 Hours 02/15/17 02/15/17 02/15/17 02/15/17 08:26 08:27 11:05 11:29 Temp 97.9 97.9 Pulse 78 72 Resp 16 22 16 B/P 135/61 139/51 Pulse Ox 90 O2 Delivery Room Air Room Air Room Air 02/15/17 02/15/17 02/15/17 02/15/17 13:39 14:43 16:00 18:06 Temp 98.8 98.8 Pulse 84 Resp 16 20 16 16 B/P 129/64 Pulse Ox 95 O2 Delivery Room Air Room Air Room Air Room Air 02/15/17 02/15/17 02/15/17 02/15/17 19:48 20:00 20:20 22:39 Temp 97.9 97.9 Pulse 70 Resp 16 20 20 B/P 118/51 Pulse Ox 94 96 97 O2 Delivery Room Air Room Air Room Air Room Air 02/15/17 02/16/17 02/16/17 02/16/17 23:58 00:38 01:08 03:13 Temp 97.9 97.7 97.9 97.7 Pulse 76 70 Resp 18 20 20 16 B/P 114/72 156/55 Pulse Ox 99 98 97 92 O2 Delivery Room Air Room Air Room Air Room Air 02/16/17 02/16/17 02/16/17 03:48 06:17 07:00 Temp 97.9 97.9 Pulse 79 Resp 20 20 12 B/P 126/69 Pulse Ox 98 95 O2 Delivery Room Air Room Air Room Air Intake and Output 02/15/17 02/15/17 02/16/17 15:00 23:00 07:00 Intake Total 830 ml Output Total 75 ml 875 ml 500 ml Balance -75 ml -45 ml -500 ml Nutrition Consultation Dietary Evaluation: Recommendations by RD: Increase Calorie Intake, Protein supplementation, PPN/ TPN Comments: ensure TID - 350kcal and 20g protein per serving PPN @ 80ml/hr until intake improves to 50% at meals Expected Outcomes/Goals: to meet >75% est nutr needs Interpretation of weight loss: >5% in 1 month Malnutrition Findings: Food and Nutrition Intake (Mod: <75% est energy req 7days Weight Status: Obese BRANDAN STEPHEN MD Feb 16, 2017 08:21
[2017-02-16] MEDS: HYDROCHLOROTHIAZIDE 25 MG TABLET PO SCH (09:09)
[2017-02-16] MEDS: LISINOPRIL 20 MG TABLET PO SCH (09:09)
[2017-02-16] MEDS: PANTOPRAZOLE 40 MG TABLET.DR. PO SCH (09:09)
[2017-02-16 10:49] VITALS: BP 115/47
--- NOTE | 2017-02-16 11:42 | PDOC ---
JESSIKA DENNIS PARAEDUCATOR 02/16/17 1142: SURGICAL PROGRESS NOTE Subjective nausea at times, vent g tube helps pain managed Vital Signs Vital Signs Date Time Temp Pulse Resp B/P Pulse Ox O2 Delivery O2 Flow Rate FiO2 02/16/17 10:49 98.1 67 18 115/47 93 Room Air 98.1 02/16/17 09:09 2.0 I&O Intake and Output 02/16/17 07:00 Intake Total 830 ml Output Total 1450 ml Balance -620 ml Intake Oral 510 ml IV Total 320 ml Output Urine Total 1100 ml Stool Total 350 ml General: Alert, Oriented X3, Cooperative, No acute distress Abdomen: Soft, Other (ostomy with stool, g tube to DD) Labs Laboratory Tests Test 02/15/17 06:55 Sodium Level 132mmol/L (136-145) Potassium Level 3.8mmol/L (3.5-5.1) Chloride Level 96mmol/L (98-107) Carbon Dioxide Level 30mmol/L (21-32) Anion Gap 6 (6-14) Blood Urea Nitrogen 19mg/dL (7-20) Creatinine 0.6mg/dL (0.6-1.0) Estimated GFR (Cockcroft-Gault) 102.3 Glucose Level 113mg/dL (70-99) Calcium Level 8.3mg/dL (8.5-10.1) Problem List Problems Medical Problems: (1) Colon cancer Status: Acute (2) Colon carcinoma metastatic to multiple sites Status: Acute (3) Leukocytosis Status: Acute (4) Postoperative abdominal pain Status: Acute Assessment/Plan s/p ileostomy , gtube ostomy teaching saturday, plan AL next week Problems: ROSEMARY LA MD 02/16/17 1238: SURGICAL PROGRESS NOTE Assessment/Plan Agree with above Problems: JESSIKA DENNIS PARAEDUCATOR Feb 16, 2017 11:42 ROSEMARY LA MD Feb 16, 2017 12:38
[2017-02-16 15:06] VITALS: BP 112/64
[2017-02-16 19:20] VITALS: BP 135/64
[2017-02-16] MEDS: SERTRALINE 25 MG TABLET. PO SCH (20:36)
[2017-02-16] MEDS: ZOLPIDEM 5 MG TABLET. PO SCH (22:08)
[2017-02-16] MEDS: OXYCODONE/APAP 7.5/325 TABLET. PO PRN (22:10)
[2017-02-16 23:20] VITALS: BP 141/83
[2017-02-17 03:20] VITALS: BP 168/76
[2017-02-17] MEDS: fentaNYL PF VIAL 100 MCG/2 ML VIAL IV PRN ×4 (03:37→22:07)
[2017-02-17] MEDS: PROCHLORPERAZINE 5 MG TABLET. PO SCH ×3 (05:54→19:41)
[2017-02-17] MEDS: LEVOTHYROXINE 50 MCG TABLET PO SCH (05:55)
[2017-02-17 07:00] VITALS: BP 136/74
--- NOTE | 2017-02-17 07:39 | PDOC ---
PROGRESS NOTES Chief Complaint Chief Complaint a/p 1. Possible ileus, not resolving, 2. Stage IV colon cancer, with mesenteric involvement, extensive omental caking, diffuse metastasis throughout the peritoneal cavity, s /p s/p colectomy prior to this admission Plan s/p palliative loop ileostomy placement and G-tube placement Diet per PPN for now, 40mls/ hr Pain control with PRN fentanyl Labs reviewed. anticipated DC in am based on recommendations. History of Present Illness History of Present Illness pain not controlled no fever no chills. Vitals Vitals Vital Signs Date Time Temp Pulse Resp B/P Pulse Ox O2 Delivery O2 Flow Rate FiO2 02/17/17 03:20 97.5 81 18 168/76 95 Room Air 97.5 02/16/17 17:54 2.0 Physical Exam General: Alert, Oriented X3, Cooperative, No acute distress Heart: Regular rate, Normal S1, Normal S2 Lungs: Clear, Other Abdomen: Soft, Other (ostomy with stool, g tube to DD) Extremities: No clubbing, No cyanosis, No edema, Normal pulses, No tenderness/ swelling Skin: No rashes, No breakdown, No significant lesion Assessment and Plan Assessmemt and Plan Problems Medical Problems: (1) Colon cancer Status: Acute (2) Colon carcinoma metastatic to multiple sites Status: Acute (3) Leukocytosis Status: Acute (4) Postoperative abdominal pain Status: Acute Problems: Comment Review of Relevant I have reviewed the following items siena (where applicable) has been applied. Labs Microbiology 02/09/17 Urine Culture - Final, Complete 02/09/17 Urine Culture Result 1 (WADE) - Final, Complete Medications Current Medications Sodium Chloride (Iv Sodium Chloride 0.9% 1000ml Bag) 1,000 ml @ 1,000 mls/hr 1X ONCE IV Last administered on 02/09/17 01:38; Start 02/09/17 at 01:30; Stop 02/09/17 at 02:29; Status DC Ondansetron HCl (Zofran) 4 mg 1X ONCE IV Last administered on 02/09/17 01:38 ; Start 02/09/17 at 01:30; Stop 02/09/17 at 01:31; Status DC Fentanyl Citrate (Fentanyl 2ml Vial) 50 mcg PRN Q15MIN PRN IV PAIN GREATER THAN 3/10 Last administered on 02/09/17 01:59; Start 02/09/17 at 01:30; Stop at 07:41; Status DC Iohexol (Omnipaque 300 Mg/ml) 75 ml 1X ONCE IV Last administered on 02/09/17 01:36; Start 02/09/17 at 01:45; Stop 02/09/17 at 01:46; Status DC Info (Do NOT chart on this entry -- for MONITORING) 1 each PRN DAILY PRN MC SEE COMMENTS; Start 02/09/17 at 01:45; Stop 02/11/17 at 01:44; Status DC Ondansetron HCl (Zofran) 4 mg PRN Q8HRS PRN IV NAUSEA/VOMITING Last administered on 02/09/17 03:55; Start 02/09/17 at 02:45; Stop 02/09/17 at 07:41 ; Status DC Morphine Sulfate 4 mg 4 mg PRN Q2HR PRN IV PAIN Last administered on 02/09/17 20:24; Start 02/09/17 at 02:45; Stop 02/10/17 at 02:44; Status DC Sodium Chloride (Iv Sodium Chloride 0.9% 1000ml Bag) 1,000 ml @ 125 mls/hr Q8H IV Last administered on 02/09/17 03:55; Start 02/09/17 at 02:45; Stop at 10:13; Status DC Ondansetron HCl (Zofran) 4 mg PRN Q6HRS PRN IV NAUSEA/VOMITING Last administered on 02/12/17 22:58; Start 02/09/17 at 07:40; Stop 02/14/17 at 10:09 ; Status DC Fentanyl Citrate (Fentanyl 2ml Vial) 50 mcg PRN Q2HR PRN IV MODERATE PAIN Last administered on 02/15/17 04:06; Start 02/09/17 at 07:45 Famotidine 20 mg 20 mg BID IVP Last administered on 02/10/17 10:27; Start at 09:00; Stop 02/10/17 at 12:45; Status DC Levothyroxine Sodium 25 mcg/ Sodium Chloride 5 ml @ 100 mls/hr DAILY IVP Last administered on 02/10/17 10:27; Start 02/09/17 at 09:00; Stop 02/10/17 at 12:45 ; Status DC Sodium Chloride 1,000 ml @ 100 mls/hr Q10H IV ; Start 02/09/17 at 10:12; Stop 02/09/17 at 10:17; Status DC Sodium Chloride 1,000 ml @ 100 mls/hr Q10H IV ; Start 02/09/17 at 20:00; Stop 02/09/17 at 19:30; Status Cancel Sodium Chloride (Iv Sodium Chloride 0.9% 1000ml Bag) 1,000 ml @ 100 mls/hr Q10H IV Last administered on 02/10/17 10:28; Start 02/09/17 at 20:00; Stop at 12:45; Status DC Levothyroxine Sodium (Synthroid) 50 mcg DAILY07 PO Last administered on 05:55; Start 02/11/17 at 07:00 Docusate Sodium (Colace) 100 mg PRN DAILY PRN PO CONSTIPATION Last administered on 02/12/17 08:32; Start 02/10/17 at 12:45 Oxycodone/ Acetaminophen (Percocet 7.5/ 325) 1 tab PRN Q4HRS PRN PO MODERATE PAIN Last administered on 02/16/17 22:10; Start 02/10/17 at 12:45 Polyethylene Glycol (miraLAX PACKET) 17 gm PRN DAILY PRN PO CONSTIPATION; Start 02/10/17 at 12:45 Zolpidem Tartrate (Ambien) 5 mg QHS PO Last administered on 02/16/17 22:08; Start 02/10/17 at 21:00 Non-Formulary Medication 1 tab DAILY PO ; Start 02/11/17 at 09:00; Status UNV Prochlorperazine Maleate (Compazine) 10 mg Q8HRS PO Last administered on 05:54; Start 02/10/17 at 14:00 Lisinopril (Prinivil) 20 mg DAILY PO Last administered on 02/16/17 09:09; Start 02/10/17 at 13:00 Hydrochlorothiazide (Hydrodiuril) 25 mg DAILY PO Last administered on 09:09; Start 02/10/17 at 13:00 Multi-Ingredient Mouthwash/Gargle (Gi Cocktail Single Dose) 15 ml PRN Q6HRS PRN SWSW GAS / BLOATING Last administered on 02/11/17 21:19; Start 02/11/17 at 18:30 Pantoprazole Sodium (Protonix) 40 mg DAILYAC PO Last administered on 02/16/17 09:09; Start 02/11/17 at 18:45 Fentanyl Citrate (Fentanyl 2ml Vial) 50 mcg 1X ONCE IV Last administered on 22:01; Start 02/11/17 at 21:30; Stop 02/11/17 at 21:31; Status DC Fentanyl Citrate 100 mcg 100 mcg PRN Q2HR PRN IV SEVERE PAIN Last administered on 02/17/17 05:58; Start 02/11/17 at 21:30 Cefoxitin Sodium/ Sodium Chloride (Mefoxin/Iv Sodium Chloride 0.9% 100ml) 100 ml @ 200 mls/hr 1X PREOP IV Last administered on 02/13/17 13:37; Start 02/12 at 11:15; Stop 02/15/17 at 15:56; Status DC Ondansetron HCl (Zofran) 4 mg PRN Q6HRS PRN IV NAUSEA/VOMITING; Start 02/13/17 at 07:00; Stop 02/14/17 at 06:59; Status DC Fentanyl Citrate (Fentanyl 2ml Vial) 25 mcg PRN Q5MIN PRN IV MILD PAIN; Start 02/13/17 at 07:00; Stop 02/14/17 at 06:59; Status DC Fentanyl Citrate (Fentanyl 2ml Vial) 50 mcg PRN Q5MIN PRN IV MODERATE PAIN Last administered on 02/13/17 16:10; Start 02/13/17 at 07:00; Stop 02/14/17 at 06:59; Status DC Morphine Sulfate 1 mg 1 mg PRN Q10MIN PRN IV SEVERE PAIN Last administered on 15:45; Start 02/13/17 at 07:00; Stop 02/14/17 at 06:59; Status DC Lactated Ringer's (Iv Lactated Ringers) 1,000 ml @ 30 mls/hr Q24H IV Last administered on 02/13/17 12:39; Start 02/13/17 at 07:00; Stop 02/13/17 at 18:59 ; Status DC Lidocaine HCl 2 ml PRN 1X PRN ID PRIOR TO IV START; Start 02/13/17 at 07:00; Stop 02/14/17 at 06:59; Status DC Hydromorphone HCl (Dilaudid) 0.5 mg PRN Q10MIN PRN IV SEV PAIN, Second choice Last administered on 02/13/17 16:12; Start 02/13/17 at 07:00; Stop 02/14/17 at 06:59; Status DC Prochlorperazine Edisylate 5 mg 5 mg PACU PRN PRN IV NAUSEA, MRX1; Start at 07:00; Stop 02/14/17 at 06:59; Status DC Sodium Chloride 1,000 ml @ 75 mls/hr [id number] IV Last administered on 05:36; Start 02/12/17 at 15:30; Stop 02/13/17 at 10:35; Status DC Potassium Chloride/Sodium Chloride 1,000 ml @ 75 mls/hr [id number] IV Last administered on 02/14/17 05:25; Start 02/13/17 at 10:45; Stop 02/14/17 at 14:21 ; Status DC Cefoxitin Sodium (Mefoxin 2gm Ivpb For Omni) 100 ml @ As Directed STK-MED ONCE IV ; Start 02/13/17 at 11:51; Stop 02/13/17 at 11:52; Status DC Bupivacaine HCl/ Epinephrine Bitart (Marcaine-Epi 0.5%-1:232179) 50 ml STK-MED ONCE .ROUTE Last administered on 02/13/17 13:42; Start 02/13/17 at 12:40; Stop 02/13/17 at 12:41; Status DC Fentanyl Citrate (Fentanyl 2ml Vial) 100 mcg STK-MED ONCE .ROUTE ; Start at 13:11; Stop 02/13/17 at 13:12; Status DC Rocuronium Perry (Zemuron) 50 mg STK-MED ONCE .ROUTE ; Start 02/13/17 at 13:12 ; Stop 02/13/17 at 13:13; Status DC Desflurane (Suprane) 30 ml STK-MED ONCE IH ; Start 02/13/17 at 13:13; Stop 02/13 at 13:14; Status DC Lidocaine HCl (Lidocaine HCl 2% Abboject) 100 mg STK-MED ONCE .ROUTE ; Start at 13:14; Stop 02/13/17 at 13:15; Status DC Dexamethasone Sodium Phosphate (Decadron) 20 mg STK-MED ONCE .ROUTE ; Start at 13:14; Stop 02/13/17 at 13:15; Status DC Ondansetron HCl (Zofran) 4 mg STK-MED ONCE .ROUTE ; Start 02/13/17 at 13:14; Stop 02/13/17 at 13:15; Status DC Vancomycin HCl 1 gm 1 gm STK-MED ONCE .ROUTE ; Start 02/13/17 at 13:14; Stop at 13:15; Status DC Propofol (Diprivan) 20 ml @ As Directed STK-MED ONCE IV ; Start 02/13/17 at 13: 14; Stop 02/13/17 at 13:15; Status DC Esmolol HCl (Brevibloc) 100 mg STK-MED ONCE IV ; Start 02/13/17 at 13:22; Stop 02/13/17 at 13:23; Status DC Ephedrine Sulfate 50 mg STK-MED ONCE IV ; Start 02/13/17 at 13:38; Stop at 13:39; Status DC Glycopyrrolate (Robinul) 1 mg STK-MED ONCE .ROUTE ; Start 02/13/17 at 13:53; Stop 02/13/17 at 13:54; Status DC Neostigmine Methylsulfate 5 mg STK-MED ONCE .ROUTE ; Start 02/13/17 at 13:53; Stop 02/13/17 at 13:54; Status DC Fentanyl Citrate (Fentanyl 2ml Vial) 100 mcg STK-MED ONCE .ROUTE ; Start at 14:11; Stop 02/13/17 at 14:12; Status DC Labetalol HCl (Normodyne) 20 mg STK-MED ONCE .ROUTE ; Start 02/13/17 at 14:28; Stop 02/13/17 at 14:29; Status DC Morphine Sulfate 10 mg STK-MED ONCE .ROUTE ; Start 02/13/17 at 14:53; Stop 02/13 at 14:54; Status DC Enoxaparin Sodium (Lovenox 40mg Syringe) 40 mg Q24H SQ Last administered on 16:53; Start 02/13/17 at 16:00; Stop 02/14/17 at 14:21; Status DC Sodium Chloride (Normal Saline Flush) 3 ml QSHIFT PRN IV AFTER MEDS AND BLOOD DRAWS; Start 02/13/17 at 15:15 Ondansetron HCl 4 mg 4 mg PRN Q6HRS PRN IV NAUESA, 1ST CHOICE; Start 02/13/17 at 15:15; Stop 02/14/17 at 14:21; Status DC Amino Acids/ Glycerin/ Electrolytes (Procalamine) 1,000 ml @ 40 mls/hr Q24H IV Last administered on 02/16/17 18:03; Start 02/14/17 at 14:30 Ondansetron HCl (Zofran) 4 mg PRN Q8HRS PRN IV NAUSEA/VOMITING Last administered on 02/14/17 21:07; Start 02/14/17 at 20:15 Sertraline HCl (Zoloft) 25 mg QHS PO Last administered on 02/16/17 20:36; Start 02/16/17 at 21:00 Active Scripts Active Compazine (Prochlorperazine Maleate) 10 Mg Tablet 10 Mg PO Q8HRS Docusate Sodium 100 Mg Capsule 100 Mg PO PRN DAILY PRN Oxycodon-Acetaminophen 7.5-325 (Oxycodone Hcl/Acetaminophen) 1 Each Tablet 1 Tab PO PRN Q4HRS PRN Miralax (Polyethylene Glycol 3350) 17 Gm Powd.pack 17 Gm PO PRN DAILY PRN Reported Ambien (Zolpidem Tartrate) 5 Mg Tablet 1 Tab PO QHS Lisinopril-Hctz 20-25 Mg Tab (Lisinopril/Hydrochlorothiazide) 1 Each Tablet 1 Tab PO DAILY Levothyroxine Sodium 50 Mcg Tablet 1 Tab PO DAILY Vitals/I & O Vital Sign - Last 24 Hours 02/16/17 02/16/17 02/16/17 02/16/17 08:00 09:09 09:09 10:49 Temp 98.1 98.1 Pulse 79 67 Resp 18 18 B/P 126/69 115/47 Pulse Ox 95 93 O2 Delivery Room Air Room Air Room Air O2 Flow Rate 2.0 2.0 02/16/17 02/16/17 02/16/17 02/16/17 13:23 15:06 17:24 17:54 Temp 97.6 97.6 Pulse 81 Resp 18 16 20 18 B/P 112/64 Pulse Ox 93 95 95 95 O2 Delivery Room Air Room Air Room Air Room Air O2 Flow Rate 2.0 2.0 2.0 02/16/17 02/16/17 02/16/17 02/17/17 19:20 20:20 23:20 03:20 Temp 98.1 97.9 97.5 98.1 97.9 97.5 Pulse 76 80 81 Resp 18 18 18 B/P 135/64 141/83 168/76 Pulse Ox 95 95 95 O2 Delivery Room Air Room Air Room Air Room Air Intake and Output 02/16/17 02/16/17 02/17/17 15:00 23:00 07:00 Intake Total 400 ml 400 ml Output Total 600 ml Balance -200 ml 400 ml Nutrition Consultation Dietary Evaluation: Recommendations by RD: Increase Calorie Intake, Protein supplementation, PPN/ TPN Comments: ensure TID - 350kcal and 20g protein per serving PPN @ 80ml/hr until intake improves to 50% at meals Expected Outcomes/Goals: to meet >75% est nutr needs Interpretation of weight loss: >5% in 1 month Malnutrition Findings: Food and Nutrition Intake (Mod: <75% est energy req 7days Weight Status: Obese BRANDAN STEPHEN MD Feb 17, 2017 07:39
[2017-02-17 08:37] LABS: CALCIUM 8.8 mg/dL (8.5-10.1); CREATININE 0.7 mg/dL (0.6-1.0); GFR 85.6; POTASSIUM 4.2 mmol/L (3.5-5.1)
[2017-02-17] MEDS: LISINOPRIL 20 MG TABLET PO SCH (08:39)
[2017-02-17] MEDS: OXYCODONE/APAP 7.5/325 TABLET. PO PRN ×4 (08:39→19:42)
[2017-02-17] MEDS: PANTOPRAZOLE 40 MG TABLET.DR. PO SCH (08:39)
[2017-02-17] MEDS: HYDROCHLOROTHIAZIDE 25 MG TABLET PO SCH (08:39)
[2017-02-17 11:00] VITALS: BP 123/58
--- NOTE | 2017-02-17 11:55 | PDOC ---
JESSIKA DENNIS BOLT CUTTER 02/17/17 1155: SURGICAL PROGRESS NOTE Subjective doing pretty well Vital Signs Vital Signs Date Time Temp Pulse Resp B/P Pulse Ox O2 Delivery O2 Flow Rate FiO2 02/17/17 11:00 98.3 60 16 123/58 94 Room Air 98.3 02/17/17 09:39 2.0 I&O Intake and Output 02/17/17 07:00 Intake Total 800 ml Output Total 600 ml Balance 200 ml Intake Oral 800 ml Output Urine Total 500 ml Stool Total 100 ml General: Alert, Oriented X3, Cooperative, No acute distress Abdomen: Soft, Other (g tube to dd, ostomy functioning ) Labs Laboratory Tests Test 02/17/17 08:05 Sodium Level 131mmol/L (136-145) Potassium Level 4.2mmol/L (3.5-5.1) Chloride Level 94mmol/L (98-107) Carbon Dioxide Level 31mmol/L (21-32) Anion Gap 6 (6-14) Blood Urea Nitrogen 19mg/dL (7-20) Creatinine 0.7mg/dL (0.6-1.0) Estimated GFR (Cockcroft-Gault) 85.6 Glucose Level 106mg/dL (70-99) Calcium Level 8.8mg/dL (8.5-10.1) Laboratory Tests Test 02/17/17 08:05 Sodium Level 131mmol/L (136-145) Potassium Level 4.2mmol/L (3.5-5.1) Chloride Level 94mmol/L (98-107) Carbon Dioxide Level 31mmol/L (21-32) Anion Gap 6 (6-14) Blood Urea Nitrogen 19mg/dL (7-20) Creatinine 0.7mg/dL (0.6-1.0) Estimated GFR (Cockcroft-Gault) 85.6 Glucose Level 106mg/dL (70-99) Calcium Level 8.8mg/dL (8.5-10.1) Problem List Problems Medical Problems: (1) Colon cancer Status: Acute (2) Colon carcinoma metastatic to multiple sites Status: Acute (3) Leukocytosis Status: Acute (4) Postoperative abdominal pain Status: Acute Assessment/Plan s/p ileostomy, g tube supportive care dc planning Problems: ROSEMARY LA MD 02/17/172021: SURGICAL PROGRESS NOTE Assessment/Plan Agree with above Problems: BECKIE BYRNES MD 02/18/17 1231: SURGICAL PROGRESS NOTE Assessment/Plan pt with c/o pain at G-tube and ileostomy bag ileostomy appears viable and functional d/w pt and pt's sister plan d/c home in AM Problems: JESSIKA DENNIS BOLT CUTTER Feb 17, 2017 11:55 ROSEMARY LA MD Feb 17, 2017 20:22 BECKIE BYRNES MD February 18, 2017 12:31
[2017-02-17 15:00] VITALS: BP 131/74
[2017-02-17] MEDS: AMINO AC 3%/ELECTROLYTE/GLYCER 1,000 ML IV SCH (18:01)
[2017-02-17 19:20] VITALS: BP 137/73
[2017-02-17] MEDS: SERTRALINE 25 MG TABLET. PO SCH (19:42)
[2017-02-17] MEDS: ZOLPIDEM 5 MG TABLET. PO SCH (22:04)
[2017-02-17 23:20] VITALS: BP 135/64
[2017-02-18] MEDS: fentaNYL PF VIAL 100 MCG/2 ML VIAL IV PRN ×3 (01:31→18:07)
[2017-02-18 03:20] VITALS: BP 109/56
[2017-02-18] MEDS: LEVOTHYROXINE 50 MCG TABLET PO SCH (04:14)
[2017-02-18] MEDS: PROCHLORPERAZINE 5 MG TABLET. PO SCH ×3 (04:14→20:52)
[2017-02-18] MEDS: OXYCODONE/APAP 7.5/325 TABLET. PO PRN ×4 (06:13→21:59)
[2017-02-18 07:00] VITALS: BP 133/62
[2017-02-18] MEDS: LISINOPRIL 20 MG TABLET PO SCH (09:31)
[2017-02-18] MEDS: HYDROCHLOROTHIAZIDE 25 MG TABLET PO SCH (09:31)
[2017-02-18] MEDS: PANTOPRAZOLE 40 MG TABLET.DR. PO SCH (09:31)
--- NOTE | 2017-02-18 10:05 | PDOC ---
PROGRESS NOTES Chief Complaint Chief Complaint a/p 1. Possible ileus, not resolving, 2. Stage IV colon cancer, with mesenteric involvement, extensive omental caking, diffuse metastasis throughout the peritoneal cavity, s /p s/p colectomy prior to this admission 3. Depression Plan s/p palliative loop ileostomy placement and G-tube placement Diet per PPN for now, 40mls/ hr Pain control with PRN oral medications Labs reviewed. anticipated DC today, awaiting general surgery rounding today. History of Present Illness History of Present Illness pain not controlled no fever no chills. Vitals Vitals Vital Signs Date Time Temp Pulse Resp B/P Pulse Ox O2 Delivery O2 Flow Rate FiO2 02/18/17 09:31 67 133/62 02/18/17 07:13 16 94 Room Air 2.0 02/18/17 07:00 97.5 97.5 Physical Exam General: Alert, Oriented X3, Cooperative, No acute distress Heart: Regular rate, Normal S1, Normal S2 Lungs: Clear, Other Abdomen: Soft, Other (g tube to dd, ostomy functioning ) Extremities: No clubbing, No cyanosis, No edema, Normal pulses, No tenderness/ swelling Skin: No rashes, No breakdown, No significant lesion Assessment and Plan Assessmemt and Plan Problems Medical Problems: (1) Colon cancer Status: Acute (2) Colon carcinoma metastatic to multiple sites Status: Acute (3) Leukocytosis Status: Acute (4) Postoperative abdominal pain Status: Acute Problems: Comment Review of Relevant I have reviewed the following items siena (where applicable) has been applied. Labs Laboratory Tests Test 02/17/17 08:05 Sodium Level 131mmol/L (136-145) Potassium Level 4.2mmol/L (3.5-5.1) Chloride Level 94mmol/L (98-107) Carbon Dioxide Level 31mmol/L (21-32) Anion Gap 6 (6-14) Blood Urea Nitrogen 19mg/dL (7-20) Creatinine 0.7mg/dL (0.6-1.0) Estimated GFR (Cockcroft-Gault) 85.6 Glucose Level 106mg/dL (70-99) Calcium Level 8.8mg/dL (8.5-10.1) Microbiology 02/09/17 Urine Culture - Final, Complete 02/09/17 Urine Culture Result 1 (WADE) - Final, Complete Medications Current Medications Sodium Chloride (Iv Sodium Chloride 0.9% 1000ml Bag) 1,000 ml @ 1,000 mls/hr 1X ONCE IV Last administered on 02/09/17 01:38; Start 02/09/17 at 01:30; Stop 02/09/17 at 02:29; Status DC Ondansetron HCl (Zofran) 4 mg 1X ONCE IV Last administered on 02/09/17 01:38 ; Start 02/09/17 at 01:30; Stop 02/09/17 at 01:31; Status DC Fentanyl Citrate (Fentanyl 2ml Vial) 50 mcg PRN Q15MIN PRN IV PAIN GREATER THAN 3/10 Last administered on 02/09/17 01:59; Start 02/09/17 at 01:30; Stop at 07:41; Status DC Iohexol (Omnipaque 300 Mg/ml) 75 ml 1X ONCE IV Last administered on 02/09/17 01:36; Start 02/09/17 at 01:45; Stop 02/09/17 at 01:46; Status DC Info (Do NOT chart on this entry -- for MONITORING) 1 each PRN DAILY PRN MC SEE COMMENTS; Start 02/09/17 at 01:45; Stop 02/11/17 at 01:44; Status DC Ondansetron HCl (Zofran) 4 mg PRN Q8HRS PRN IV NAUSEA/VOMITING Last administered on 02/09/17 03:55; Start 02/09/17 at 02:45; Stop 02/09/17 at 07:41 ; Status DC Morphine Sulfate 4 mg 4 mg PRN Q2HR PRN IV PAIN Last administered on 02/09/17 20:24; Start 02/09/17 at 02:45; Stop 02/10/17 at 02:44; Status DC Sodium Chloride (Iv Sodium Chloride 0.9% 1000ml Bag) 1,000 ml @ 125 mls/hr Q8H IV Last administered on 02/09/17 03:55; Start 02/09/17 at 02:45; Stop at 10:13; Status DC Ondansetron HCl (Zofran) 4 mg PRN Q6HRS PRN IV NAUSEA/VOMITING Last administered on 02/12/17 22:58; Start 02/09/17 at 07:40; Stop 02/14/17 at 10:09 ; Status DC Fentanyl Citrate (Fentanyl 2ml Vial) 50 mcg PRN Q2HR PRN IV MODERATE PAIN Last administered on 02/18/17 04:17; Start 02/09/17 at 07:45 Famotidine 20 mg 20 mg BID IVP Last administered on 02/10/17 10:27; Start at 09:00; Stop 02/10/17 at 12:45; Status DC Levothyroxine Sodium 25 mcg/ Sodium Chloride 5 ml @ 100 mls/hr DAILY IVP Last administered on 02/10/17 10:27; Start 02/09/17 at 09:00; Stop 02/10/17 at 12:45 ; Status DC Sodium Chloride 1,000 ml @ 100 mls/hr Q10H IV ; Start 02/09/17 at 10:12; Stop 02/09/17 at 10:17; Status DC Sodium Chloride 1,000 ml @ 100 mls/hr Q10H IV ; Start 02/09/17 at 20:00; Stop 02/09/17 at 19:30; Status Cancel Sodium Chloride (Iv Sodium Chloride 0.9% 1000ml Bag) 1,000 ml @ 100 mls/hr Q10H IV Last administered on 02/10/17 10:28; Start 02/09/17 at 20:00; Stop at 12:45; Status DC Levothyroxine Sodium (Synthroid) 50 mcg DAILY07 PO Last administered on 04:14; Start 02/11/17 at 07:00 Docusate Sodium (Colace) 100 mg PRN DAILY PRN PO CONSTIPATION Last administered on 02/12/17 08:32; Start 02/10/17 at 12:45 Oxycodone/ Acetaminophen (Percocet 7.5/ 325) 1 tab PRN Q4HRS PRN PO MODERATE PAIN Last administered on 02/18/17 06:13; Start 02/10/17 at 12:45 Polyethylene Glycol (miraLAX PACKET) 17 gm PRN DAILY PRN PO CONSTIPATION; Start 02/10/17 at 12:45 Zolpidem Tartrate (Ambien) 5 mg QHS PO Last administered on 02/17/17 22:04; Start 02/10/17 at 21:00 Non-Formulary Medication 1 tab DAILY PO ; Start 02/11/17 at 09:00; Status UNV Prochlorperazine Maleate (Compazine) 10 mg Q8HRS PO Last administered on 04:14; Start 02/10/17 at 14:00 Lisinopril (Prinivil) 20 mg DAILY PO Last administered on 02/18/17 09:31; Start 02/10/17 at 13:00 Hydrochlorothiazide (Hydrodiuril) 25 mg DAILY PO Last administered on 02/18/17 09:31; Start 02/10/17 at 13:00 Multi-Ingredient Mouthwash/Gargle (Gi Cocktail Single Dose) 15 ml PRN Q6HRS PRN SWSW GAS / BLOATING Last administered on 02/11/17 21:19; Start 02/11/17 at 18:30 Pantoprazole Sodium (Protonix) 40 mg DAILYAC PO Last administered on 02/18/17 09:31; Start 02/11/17 at 18:45 Fentanyl Citrate (Fentanyl 2ml Vial) 50 mcg 1X ONCE IV Last administered on 22:01; Start 02/11/17 at 21:30; Stop 02/11/17 at 21:31; Status DC Fentanyl Citrate 100 mcg 100 mcg PRN Q2HR PRN IV SEVERE PAIN Last administered on 02/17/17 19:43; Start 02/11/17 at 21:30 Cefoxitin Sodium/ Sodium Chloride (Mefoxin/Iv Sodium Chloride 0.9% 100ml) 100 ml @ 200 mls/hr 1X PREOP IV Last administered on 02/13/17 13:37; Start 02/12 at 11:15; Stop 02/15/17 at 15:56; Status DC Ondansetron HCl (Zofran) 4 mg PRN Q6HRS PRN IV NAUSEA/VOMITING; Start 02/13/17 at 07:00; Stop 02/14/17 at 06:59; Status DC Fentanyl Citrate (Fentanyl 2ml Vial) 25 mcg PRN Q5MIN PRN IV MILD PAIN; Start 02/13/17 at 07:00; Stop 02/14/17 at 06:59; Status DC Fentanyl Citrate (Fentanyl 2ml Vial) 50 mcg PRN Q5MIN PRN IV MODERATE PAIN Last administered on 02/13/17 16:10; Start 02/13/17 at 07:00; Stop 02/14/17 at 06:59; Status DC Morphine Sulfate 1 mg 1 mg PRN Q10MIN PRN IV SEVERE PAIN Last administered on 15:45; Start 02/13/17 at 07:00; Stop 02/14/17 at 06:59; Status DC Lactated Ringer's (Iv Lactated Ringers) 1,000 ml @ 30 mls/hr Q24H IV Last administered on 02/13/17 12:39; Start 02/13/17 at 07:00; Stop 02/13/17 at 18:59 ; Status DC Lidocaine HCl 2 ml PRN 1X PRN ID PRIOR TO IV START; Start 02/13/17 at 07:00; Stop 02/14/17 at 06:59; Status DC Hydromorphone HCl (Dilaudid) 0.5 mg PRN Q10MIN PRN IV SEV PAIN, Second choice Last administered on 02/13/17 16:12; Start 02/13/17 at 07:00; Stop 02/14/17 at 06:59; Status DC Prochlorperazine Edisylate 5 mg 5 mg PACU PRN PRN IV NAUSEA, MRX1; Start at 07:00; Stop 02/14/17 at 06:59; Status DC Sodium Chloride 1,000 ml @ 75 mls/hr [id number] IV Last administered on 05:36; Start 02/12/17 at 15:30; Stop 02/13/17 at 10:35; Status DC Potassium Chloride/Sodium Chloride 1,000 ml @ 75 mls/hr [id number] IV Last administered on 02/14/17 05:25; Start 02/13/17 at 10:45; Stop 02/14/17 at 14:21 ; Status DC Cefoxitin Sodium (Mefoxin 2gm Ivpb For Omni) 100 ml @ As Directed STK-MED ONCE IV ; Start 02/13/17 at 11:51; Stop 02/13/17 at 11:52; Status DC Bupivacaine HCl/ Epinephrine Bitart (Marcaine-Epi 0.5%-1:[id number]) 50 ml STK-MED ONCE .ROUTE Last administered on 02/13/17t 13:42; Start 02/13/17 at 12:40; Stop 02/13/17 at 12:41; Status DC Fentanyl Citrate (Fentanyl 2ml Vial) 100 mcg STK-MED ONCE .ROUTE ; Start at 13:11; Stop 02/13/17 at 13:12; Status DC Rocuronium Jennings (Zemuron) 50 mg STK-MED ONCE .ROUTE ; Start 02/13/17 at 13:12 ; Stop 02/13/17 at 13:13; Status DC Desflurane (Suprane) 30 ml STK-MED ONCE IH ; Start 02/13/17 at 13:13; Stop 02/13 at 13:14; Status DC Lidocaine HCl (Lidocaine HCl 2% Abboject) 100 mg STK-MED ONCE .ROUTE ; Start at 13:14; Stop 02/13/17 at 13:15; Status DC Dexamethasone Sodium Phosphate (Decadron) 20 mg STK-MED ONCE .ROUTE ; Start at 13:14; Stop 02/13/17 at 13:15; Status DC Ondansetron HCl (Zofran) 4 mg STK-MED ONCE .ROUTE ; Start 02/13/17 at 13:14; Stop 02/13/17 at 13:15; Status DC Vancomycin HCl 1 gm 1 gm STK-MED ONCE .ROUTE ; Start 02/13/17 at 13:14; Stop at 13:15; Status DC Propofol (Diprivan) 20 ml @ As Directed STK-MED ONCE IV ; Start 02/13/17 at 13: 14; Stop 02/13/17 at 13:15; Status DC Esmolol HCl (Brevibloc) 100 mg STK-MED ONCE IV ; Start 02/13/17 at 13:22; Stop 02/13/17 at 13:23; Status DC Ephedrine Sulfate 50 mg STK-MED ONCE IV ; Start 02/13/17 at 13:38; Stop at 13:39; Status DC Glycopyrrolate (Robinul) 1 mg STK-MED ONCE .ROUTE ; Start 02/13/17 at 13:53; Stop 02/13/17 at 13:54; Status DC Neostigmine Methylsulfate 5 mg STK-MED ONCE .ROUTE ; Start 02/13/17 at 13:53; Stop 02/13/17 at 13:54; Status DC Fentanyl Citrate (Fentanyl 2ml Vial) 100 mcg STK-MED ONCE .ROUTE ; Start at 14:11; Stop 02/13/17 at 14:12; Status DC Labetalol HCl (Normodyne) 20 mg STK-MED ONCE .ROUTE ; Start 02/13/17 at 14:28; Stop 02/13/17 at 14:29; Status DC Morphine Sulfate 10 mg STK-MED ONCE .ROUTE ; Start 02/13/17 at 14:53; Stop 02/13 at 14:54; Status DC Enoxaparin Sodium (Lovenox 40mg Syringe) 40 mg Q24H SQ Last administered on 16:53; Start 02/13/17 at 16:00; Stop 02/14/17 at 14:21; Status DC Sodium Chloride (Normal Saline Flush) 3 ml QSHIFT PRN IV AFTER MEDS AND BLOOD DRAWS; Start 02/13/17 at 15:15 Ondansetron HCl 4 mg 4 mg PRN Q6HRS PRN IV NAUESA, 1ST CHOICE; Start 02/13/17 at 15:15; Stop 02/14/17 at 14:21; Status DC Amino Acids/ Glycerin/ Electrolytes (Procalamine) 1,000 ml @ 40 mls/hr Q24H IV Last administered on 02/17/17 18:01; Start 02/14/17 at 14:30 Ondansetron HCl (Zofran) 4 mg PRN Q8HRS PRN IV NAUSEA/VOMITING Last administered on 02/14/17 21:07; Start 02/14/17 at 20:15 Sertraline HCl (Zoloft) 25 mg QHS PO Last administered on 02/17/17 19:42; Start 02/16/17 at 21:00 Active Scripts Active Compazine (Prochlorperazine Maleate) 10 Mg Tablet 10 Mg PO Q8HRS Docusate Sodium 100 Mg Capsule 100 Mg PO PRN DAILY PRN Oxycodon-Acetaminophen 7.5-325 (Oxycodone Hcl/Acetaminophen) 1 Each Tablet 1 Tab PO PRN Q4HRS PRN Miralax (Polyethylene Glycol 3350) 17 Gm Powd.pack 17 Gm PO PRN DAILY PRN Reported Ambien (Zolpidem Tartrate) 5 Mg Tablet 1 Tab PO QHS Lisinopril-Hctz 20-25 Mg Tab (Lisinopril/Hydrochlorothiazide) 1 Each Tablet 1 Tab PO DAILY Levothyroxine Sodium 50 Mcg Tablet 1 Tab PO DAILY Vitals/I & O Vital Sign - Last 24 Hours 02/17/17 02/17/17 02/17/17 02/17/17 11:00 12:37 15:00 16:11 Temp 98.3 97.9 98.3 97.9 Pulse 60 76 Resp 16 20 20 20 B/P 123/58 131/74 Pulse Ox 94 94 96 96 O2 Delivery Room Air Room Air Room Air Room Air O2 Flow Rate 2.0 2.0 02/17/17 02/17/17 02/17/17 02/17/17 19:20 19:42 19:43 20:00 Temp 98.1 98.1 Pulse 81 Resp 18 B/P 137/73 Pulse Ox 97 O2 Delivery Room Air Room Air Room Air Room Air 02/17/17 02/17/17 02/17/17 02/18/17 21:25 22:07 23:20 01:31 Temp 97.5 97.5 Pulse 71 Resp 18 B/P 135/64 Pulse Ox 95 O2 Delivery Room Air Room Air Room Air Room Air 02/18/17 02/18/17 02/18/17 02/18/17 03:20 04:17 04:51 06:13 Temp 97.9 97.9 Pulse 66 Resp 18 20 B/P 109/56 Pulse Ox 94 94 O2 Delivery Room Air Room Air Room Air Room Air O2 Flow Rate 2.0 02/18/17 02/18/17 02/18/17 07:00 07:13 09:31 Temp 97.5 97.5 Pulse 67 67 Resp 18 16 B/P 133/62 133/62 Pulse Ox 93 94 O2 Delivery Room Air Room Air O2 Flow Rate 2.0 Intake and Output 02/17/17 02/17/17 02/18/17 15:00 23:00 07:00 Intake Total 350 ml Output Total 650 ml Balance -300 ml Nutrition Consultation Dietary Evaluation: Recommendations by RD: Increase Calorie Intake, Protein supplementation, PPN/ TPN Comments: ensure TID - 350kcal and 20g protein per serving PPN @ 80ml/hr until intake improves to 50% at meals Expected Outcomes/Goals: to meet >75% est nutr needs Interpretation of weight loss: >5% in 1 month Malnutrition Findings: Food and Nutrition Intake (Mod: <75% est energy req 7days Weight Status: Obese BRANDAN STEPHEN MD February 18, 2017 10:05
[2017-02-18] MEDS ORDERED: Sertraline Hcl PO (10:07)
[2017-02-18 11:00] VITALS: BP 148/55
--- NOTE | 2017-02-18 11:50 | PDOC ---
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 02/18/17 1150: SURGICAL PROGRESS NOTE Subjective no complaints dc plans today d/w wound care, small area where stoma is from skin Vital Signs Vital Signs Date Time Temp Pulse Resp B/P Pulse Ox O2 Delivery O2 Flow Rate FiO2 02/18/17 11:00 97.7 71 20 148/55 96 Room Air 97.7 02/18/17 08:00 2.0 I&O Intake and Output 02/18/17 07:00 Intake Total 350 ml Output Total 650 ml Balance -300 ml Intake Oral 350 ml Output Urine Total 650 ml # Voids 2 General: Alert, Oriented X3, Cooperative, No acute distress Abdomen: Soft, Other (ND, ostomy with stool, g tube to dd) Labs Laboratory Tests Test 02/17/17 08:05 Sodium Level 131mmol/L (136-145) Potassium Level 4.2mmol/L (3.5-5.1) Chloride Level 94mmol/L (98-107) Carbon Dioxide Level 31mmol/L (21-32) Anion Gap 6 (6-14) Blood Urea Nitrogen 19mg/dL (7-20) Creatinine 0.7mg/dL (0.6-1.0) Estimated GFR (Cockcroft-Gault) 85.6 Glucose Level 106mg/dL (70-99) Calcium Level 8.8mg/dL (8.5-10.1) Problem List Problems Medical Problems: (1) Colon cancer Status: Acute (2) Colon carcinoma metastatic to multiple sites Status: Acute (3) Leukocytosis Status: Acute (4) Postoperative abdominal pain Status: Acute Assessment/Plan will have dr byrnes see prior to discharge to evaluate stoma Problems: BECKIE BYRNES MD 02/18/17 1232: SURGICAL PROGRESS NOTE Assessment/Plan ileostomy viable plan d/c in AM Problems: 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 February 18, 2017 11:50 BECKIE BYRNES MD February 18, 2017 12:32
[2017-02-18 15:00] VITALS: BP 139/64
[2017-02-18 19:30] VITALS: BP 140/62
[2017-02-18] MEDS: AMINO AC 3%/ELECTROLYTE/GLYCER 1,000 ML IV SCH (19:36)
[2017-02-18] MEDS: SERTRALINE 25 MG TABLET. PO SCH (20:52)
[2017-02-18] MEDS: ZOLPIDEM 5 MG TABLET. PO SCH (21:59)
[2017-02-18 23:30] VITALS: BP 132/59
[2017-02-19] MEDS: OXYCODONE/APAP 7.5/325 TABLET. PO PRN ×2 (02:25→07:34)
[2017-02-19 03:30] VITALS: BP 112/77
[2017-02-19] MEDS: PROCHLORPERAZINE 5 MG TABLET. PO SCH (05:51)
[2017-02-19] MEDS: LEVOTHYROXINE 50 MCG TABLET PO SCH (05:51)
[2017-02-19] MEDS: PANTOPRAZOLE 40 MG TABLET.DR. PO SCH (07:32)
[2017-02-19 07:34] VITALS: BP 150/73
[2017-02-19] MEDS: HYDROCHLOROTHIAZIDE 25 MG TABLET PO SCH (07:35)
[2017-02-19] MEDS: LISINOPRIL 20 MG TABLET PO SCH (07:36)
--- NOTE | 2017-02-19 09:22 | PDOC ---
PROGRESS NOTES Chief Complaint Chief Complaint a/p 1. Possible ileus, not resolving, 2. Stage IV colon cancer, with mesenteric involvement, extensive omental caking, diffuse metastasis throughout the peritoneal cavity, s /p s/p colectomy prior to this admission 3. Depression stable. Plan s/p palliative loop ileostomy placement and G-tube placement Pain control with PRN oral medications Labs reviewed. anticipated DC today, awaiting general surgery rounding today. leak around ileostomy is improved. History of Present Illness History of Present Illness pain controlled no fever Vitals Vitals Vital Signs Date Time Temp Pulse Resp B/P Pulse Ox O2 Delivery O2 Flow Rate FiO2 02/19/17 08:40 96 Room Air 2.0 02/19/17 07:36 74 150/73 02/19/17 07:34 98.0 19 98.0 Physical Exam General: Alert, Oriented X3, Cooperative, No acute distress Heart: Regular rate, Normal S1, Normal S2 Lungs: Clear, Other Abdomen: Soft, Other (ND, ostomy with stool, g tube to dd) Extremities: No clubbing, No cyanosis, No edema, Normal pulses, No tenderness/ swelling Skin: No rashes, No breakdown, No significant lesion Assessment and Plan Assessmemt and Plan Problems Medical Problems: (1) Colon cancer Status: Acute (2) Colon carcinoma metastatic to multiple sites Status: Acute (3) Leukocytosis Status: Acute (4) Postoperative abdominal pain Status: Acute Problems: Comment Review of Relevant I have reviewed the following items siena (where applicable) has been applied. Labs Microbiology 02/09/17 Urine Culture - Final, Complete 02/09/17 Urine Culture Result 1 (WADE) - Final, Complete Medications Current Medications Sodium Chloride (Iv Sodium Chloride 0.9% 1000ml Bag) 1,000 ml @ 1,000 mls/hr 1X ONCE IV Last administered on 02/09/17 01:38; Start 02/09/17 at 01:30; Stop 02/09/17 at 02:29; Status DC Ondansetron HCl (Zofran) 4 mg 1X ONCE IV Last administered on 02/09/17 01:38 ; Start 02/09/17 at 01:30; Stop 02/09/17 at 01:31; Status DC Fentanyl Citrate (Fentanyl 2ml Vial) 50 mcg PRN Q15MIN PRN IV PAIN GREATER THAN 3/10 Last administered on 02/09/17 01:59; Start 02/09/17 at 01:30; Stop at 07:41; Status DC Iohexol (Omnipaque 300 Mg/ml) 75 ml 1X ONCE IV Last administered on 02/09/17 01:36; Start 02/09/17 at 01:45; Stop 02/09/17 at 01:46; Status DC Info (Do NOT chart on this entry -- for MONITORING) 1 each PRN DAILY PRN MC SEE COMMENTS; Start 02/09/17 at 01:45; Stop 02/11/17 at 01:44; Status DC Ondansetron HCl (Zofran) 4 mg PRN Q8HRS PRN IV NAUSEA/VOMITING Last administered on 02/09/17 03:55; Start 02/09/17 at 02:45; Stop 02/09/17 at 07:41 ; Status DC Morphine Sulfate 4 mg 4 mg PRN Q2HR PRN IV PAIN Last administered on 02/09/17 20:24; Start 02/09/17 at 02:45; Stop 02/10/17 at 02:44; Status DC Sodium Chloride (Iv Sodium Chloride 0.9% 1000ml Bag) 1,000 ml @ 125 mls/hr Q8H IV Last administered on 02/09/17 03:55; Start 02/09/17 at 02:45; Stop at 10:13; Status DC Ondansetron HCl (Zofran) 4 mg PRN Q6HRS PRN IV NAUSEA/VOMITING Last administered on 02/12/17 22:58; Start 02/09/17 at 07:40; Stop 02/14/17 at 10:09 ; Status DC Fentanyl Citrate (Fentanyl 2ml Vial) 50 mcg PRN Q2HR PRN IV MODERATE PAIN Last administered on 02/18/17 04:17; Start 02/09/17 at 07:45 Famotidine 20 mg 20 mg BID IVP Last administered on 02/10/17 10:27; Start at 09:00; Stop 02/10/17 at 12:45; Status DC Levothyroxine Sodium 25 mcg/ Sodium Chloride 5 ml @ 100 mls/hr DAILY IVP Last administered on 02/10/17 10:27; Start 02/09/17 at 09:00; Stop 02/10/17 at 12:45 ; Status DC Sodium Chloride 1,000 ml @ 100 mls/hr Q10H IV ; Start 02/09/17 at 10:12; Stop 02/09/17 at 10:17; Status DC Sodium Chloride 1,000 ml @ 100 mls/hr Q10H IV ; Start 02/09/17 at 20:00; Stop 02/09/17 at 19:30; Status Cancel Sodium Chloride (Iv Sodium Chloride 0.9% 1000ml Bag) 1,000 ml @ 100 mls/hr Q10H IV Last administered on 02/10/17 10:28; Start 02/09/17 at 20:00; Stop at 12:45; Status DC Levothyroxine Sodium (Synthroid) 50 mcg DAILY07 PO Last administered on 05:51; Start 02/11/17 at 07:00 Docusate Sodium (Colace) 100 mg PRN DAILY PRN PO CONSTIPATION Last administered on 02/12/17 08:32; Start 02/10/17 at 12:45 Oxycodone/ Acetaminophen (Percocet 7.5/ 325) 1 tab PRN Q4HRS PRN PO MODERATE PAIN Last administered on 02/19/17 07:34; Start 02/10/17 at 12:45 Polyethylene Glycol (miraLAX PACKET) 17 gm PRN DAILY PRN PO CONSTIPATION; Start 02/10/17 at 12:45 Zolpidem Tartrate (Ambien) 5 mg QHS PO Last administered on 02/18/17 21:59; Start 02/10/17 at 21:00 Non-Formulary Medication 1 tab DAILY PO ; Start 02/11/17 at 09:00; Status UNV Prochlorperazine Maleate (Compazine) 10 mg Q8HRS PO Last administered on 05:51; Start 02/10/17 at 14:00 Lisinopril (Prinivil) 20 mg DAILY PO Last administered on 02/19/17 07:36; Start 02/10/17 at 13:00 Hydrochlorothiazide (Hydrodiuril) 25 mg DAILY PO Last administered on 02/19/17 07:35; Start 02/10/17 at 13:00 Multi-Ingredient Mouthwash/Gargle (Gi Cocktail Single Dose) 15 ml PRN Q6HRS PRN SWSW GAS / BLOATING Last administered on 02/11/17 21:19; Start 02/11/17 at 18:30 Pantoprazole Sodium (Protonix) 40 mg DAILYAC PO Last administered on 02/19/17 07:32; Start 02/11/17 at 18:45 Fentanyl Citrate (Fentanyl 2ml Vial) 50 mcg 1X ONCE IV Last administered on 22:01; Start 02/11/17 at 21:30; Stop 02/11/17 at 21:31; Status DC Fentanyl Citrate 100 mcg 100 mcg PRN Q2HR PRN IV SEVERE PAIN Last administered on 02/17/17 19:43; Start 02/11/17 at 21:30 Cefoxitin Sodium/ Sodium Chloride (Mefoxin/Iv Sodium Chloride 0.9% 100ml) 100 ml @ 200 mls/hr 1X PREOP IV Last administered on 02/13/17 13:37; Start 02/12 at 11:15; Stop 02/15/17 at 15:56; Status DC Ondansetron HCl (Zofran) 4 mg PRN Q6HRS PRN IV NAUSEA/VOMITING; Start 02/13/17 at 07:00; Stop 02/14/17 at 06:59; Status DC Fentanyl Citrate (Fentanyl 2ml Vial) 25 mcg PRN Q5MIN PRN IV MILD PAIN; Start 02/13/17 at 07:00; Stop 02/14/17 at 06:59; Status DC Fentanyl Citrate (Fentanyl 2ml Vial) 50 mcg PRN Q5MIN PRN IV MODERATE PAIN Last administered on 02/13/17 16:10; Start 02/13/17 at 07:00; Stop 02/14/17 at 06:59; Status DC Morphine Sulfate 1 mg 1 mg PRN Q10MIN PRN IV SEVERE PAIN Last administered on 15:45; Start 02/13/17 at 07:00; Stop 02/14/17 at 06:59; Status DC Lactated Ringer's (Iv Lactated Ringers) 1,000 ml @ 30 mls/hr Q24H IV Last administered on 02/13/17 12:39; Start 02/13/17 at 07:00; Stop 02/13/17 at 18:59 ; Status DC Lidocaine HCl 2 ml PRN 1X PRN ID PRIOR TO IV START; Start 02/13/17 at 07:00; Stop 02/14/17 at 06:59; Status DC Hydromorphone HCl (Dilaudid) 0.5 mg PRN Q10MIN PRN IV SEV PAIN, Second choice Last administered on 02/13/17 16:12; Start 02/13/17 at 07:00; Stop 02/14/17 at 06:59; Status DC Prochlorperazine Edisylate 5 mg 5 mg PACU PRN PRN IV NAUSEA, MRX1; Start at 07:00; Stop 02/14/17 at 06:59; Status DC Sodium Chloride 1,000 ml @ 75 mls/hr [id number] IV Last administered on 05:36; Start 02/12/17 at 15:30; Stop 02/13/17 at 10:35; Status DC Potassium Chloride/Sodium Chloride 1,000 ml @ 75 mls/hr [id number] IV Last administered on 02/14/17 05:25; Start 02/13/17 at 10:45; Stop 02/14/17 at 14:21 ; Status DC Cefoxitin Sodium (Mefoxin 2gm Ivpb For Omni) 100 ml @ As Directed STK-MED ONCE IV ; Start 02/13/17 at 11:51; Stop 02/13/17 at 11:52; Status DC Bupivacaine HCl/ Epinephrine Bitart (Marcaine-Epi 0.5%-1:[id number]) 50 ml STK-MED ONCE .ROUTE Last administered on 02/13/17 13:42; Start 02/13/17 at 12:40; Stop 02/13/17 at 12:41; Status DC Fentanyl Citrate (Fentanyl 2ml Vial) 100 mcg STK-MED ONCE .ROUTE ; Start at 13:11; Stop 02/13/17 at 13:12; Status DC Rocuronium [place] (Zemuron) 50 mg STK-MED ONCE .ROUTE ; Start 02/13/17 at 13:12 ; Stop 02/13/17 at 13:13; Status DC Desflurane (Suprane) 30 ml STK-MED ONCE IH ; Start 02/13/17 at 13:13; Stop 02/13 at 13:14; Status DC Lidocaine HCl (Lidocaine HCl 2% Abboject) 100 mg STK-MED ONCE .ROUTE ; Start at 13:14; Stop 02/13/17 at 13:15; Status DC Dexamethasone Sodium Phosphate (Decadron) 20 mg STK-MED ONCE .ROUTE ; Start at 13:14; Stop 02/13/17 at 13:15; Status DC Ondansetron HCl (Zofran) 4 mg STK-MED ONCE .ROUTE ; Start 02/13/17 at 13:14; Stop 02/13/17 at 13:15; Status DC Vancomycin HCl 1 gm 1 gm STK-MED ONCE .ROUTE ; Start 02/13/17 at 13:14; Stop at 13:15; Status DC Propofol (Diprivan) 20 ml @ As Directed STK-MED ONCE IV ; Start 02/13/17 at 13: 14; Stop 02/13/17 at 13:15; Status DC Esmolol HCl (Brevibloc) 100 mg STK-MED ONCE IV ; Start 02/13/17 at 13:22; Stop 02/13/17 at 13:23; Status DC Ephedrine Sulfate 50 mg STK-MED ONCE IV ; Start 02/13/17 at 13:38; Stop at 13:39; Status DC Glycopyrrolate (Robinul) 1 mg STK-MED ONCE .ROUTE ; Start 02/13/17 at 13:53; Stop 02/13/17 at 13:54; Status DC Neostigmine Methylsulfate 5 mg STK-MED ONCE .ROUTE ; Start 02/13/17 at 13:53; Stop 02/13/17 at 13:54; Status DC Fentanyl Citrate (Fentanyl 2ml Vial) 100 mcg STK-MED ONCE .ROUTE ; Start at 14:11; Stop 02/13/17 at 14:12; Status DC Labetalol HCl (Normodyne) 20 mg STK-MED ONCE .ROUTE ; Start 02/13/17 at 14:28; Stop 02/13/17 at 14:29; Status DC Morphine Sulfate 10 mg STK-MED ONCE .ROUTE ; Start 02/13/17 at 14:53; Stop 02/13 at 14:54; Status DC Enoxaparin Sodium (Lovenox 40mg Syringe) 40 mg Q24H SQ Last administered on 16:53; Start 02/13/17 at 16:00; Stop 02/14/17 at 14:21; Status DC Sodium Chloride (Normal Saline Flush) 3 ml QSHIFT PRN IV AFTER MEDS AND BLOOD DRAWS; Start 02/13/17 at 15:15 Ondansetron HCl 4 mg 4 mg PRN Q6HRS PRN IV NAUESA, 1ST CHOICE; Start 02/13/17 at 15:15; Stop 02/14/17 at 14:21; Status DC Amino Acids/ Glycerin/ Electrolytes (Procalamine) 1,000 ml @ 40 mls/hr Q24H IV Last administered on 02/17/17 18:01; Start 02/14/17 at 14:30 Ondansetron HCl (Zofran) 4 mg PRN Q8HRS PRN IV NAUSEA/VOMITING Last administered on 02/14/17 21:07; Start 02/14/17 at 20:15 Sertraline HCl (Zoloft) 25 mg QHS PO Last administered on 02/18/17 20:52; Start 02/16/17 at 21:00 Active Scripts Active [Sertraline Hcl] 25 MG Tablet 25 Mg PO QHS Compazine (Prochlorperazine Maleate) 10 Mg Tablet 10 Mg PO Q8HRS Docusate Sodium 100 Mg Capsule 100 Mg PO PRN DAILY PRN Oxycodon-Acetaminophen 7.5-325 (Oxycodone Hcl/Acetaminophen) 1 Each Tablet 1 Tab PO PRN Q4HRS PRN Miralax (Polyethylene Glycol 3350) 17 Gm Powd.pack 17 Gm PO PRN DAILY PRN Reported Ambien (Zolpidem Tartrate) 5 Mg Tablet 1 Tab PO QHS Lisinopril-Hctz 20-25 Mg Tab (Lisinopril/Hydrochlorothiazide) 1 Each Tablet 1 Tab PO DAILY Levothyroxine Sodium 50 Mcg Tablet 1 Tab PO DAILY Vitals/I & O Vital Sign - Last 24 Hours 02/18/17 02/18/17 02/18/17 02/18/17 09:31 11:00 12:28 13:28 Temp 97.7 97.7 Pulse 67 71 Resp 20 18 18 B/P 133/62 148/55 Pulse Ox 96 96 O2 Delivery Room Air Room Air O2 Flow Rate 2.0 02/18/17 02/18/17 02/18/17 02/18/17 15:00 18:14 19:30 20:00 Temp 97.7 98.1 97.7 98.1 Pulse 72 76 Resp 18 18 B/P 139/64 140/62 Pulse Ox 94 97 O2 Delivery Room Air Room Air Room Air Room Air 02/18/17 02/18/17 02/19/17 02/19/17 21:59 23:30 02:25 03:30 Temp 97.7 97.5 97.7 97.5 Pulse 78 70 Resp 18 18 B/P 132/59 112/77 Pulse Ox 94 96 O2 Delivery Room Air Room Air Room Air Room Air 02/19/17 02/19/17 02/19/17 02/19/17 07:34 07:34 07:36 07:38 Temp 98.0 98.0 Pulse 71 74 Resp 19 B/P 150/73 150/73 Pulse Ox 96 98 O2 Delivery Room Air Room Air Room Air O2 Flow Rate 2.0 02/19/17 08:40 Pulse Ox 96 O2 Delivery Room Air O2 Flow Rate 2.0 Intake and Output 02/18/17 02/18/17 02/19/17 15:00 23:00 07:00 Intake Total 600 ml 0 ml Output Total 450 ml Balance 600 ml -450 ml Nutrition Consultation Dietary Evaluation: Recommendations by RD: Increase Calorie Intake, Protein supplementation, PPN/ TPN Comments: ensure TID - 350kcal and 20g protein per serving PPN @ 80ml/hr until intake improves to 50% at meals Expected Outcomes/Goals: to meet >75% est nutr needs Interpretation of weight loss: >5% in 1 month Malnutrition Findings: Food and Nutrition Intake (Mod: <75% est energy req 7days Weight Status: Obese BRANDAN STEPHEN MD February 19, 2017 09:22
[2017-02-19 10:57] VITALS: BP 125/65
--- NOTE | 2017-02-19 11:20 | PDOC ---
SURGICAL PROGRESS NOTE Subjective Pt feels better, no N/V Vital Signs Vital Signs Date Time Temp Pulse Resp B/P Pulse Ox O2 Delivery O2 Flow Rate FiO2 02/19/17 10:57 98.6 61 125/65 99 Room Air 98.6 02/19/17 08:40 2.0 02/19/17 07:34 19 I&O Intake and Output 02/19/17 07:00 Intake Total 600 ml Output Total 450 ml Balance 150 ml Intake Oral 600 ml Output Urine Total 250 ml Stool Total 200 ml General: Alert, Oriented X3, Cooperative, No acute distress Abdomen: Soft, No tenderness, Other (ileostomy viable with good output) Problem List Problems Medical Problems: (1) Colon cancer Status: Acute (2) Colon carcinoma metastatic to multiple sites Status: Acute (3) Leukocytosis Status: Acute (4) Postoperative abdominal pain Status: Acute Assessment/Plan s/p G-tube, ileostomy ADAT OK to D/c home, if OK with other services Problems: BECKIE BYRNES MD February 19, 2017 11:20
--- NOTE | 2017-02-21 12:24 | DS ---
DATE OF DISCHARGE: 02/19/2017 DISCHARGE DIAGNOSES: 1. Stage IV colon cancer with mesenteric involvement and extensive omental thickening with diffuse metastasis throughout the peritoneal cavity, status post colectomy prior to this admission and status post palliative loop ileostomy and placement of G-tube. 2. Possible ileus resolved. 3. Depression, chronic, stable. BRIEF HOSPITAL COURSE: A 61-year-old female patient admitted to the hospital on 02/09/2017. After briefly discharged from hospital, she had a stage IV colon cancer with metastatic involvement and later she developed ileus and General Surgery has been consulted. Dr. Balderas did a laparoscopic gastrostomy tube placement and laparoscopy ileostomy placement for palliation. During hospitalization, she did develop some nausea and intractable abdominal discomfort. Her symptoms resolved at the time of discharge with symptomatic treatment and ileostomy is working well and the patient did tolerate diet very well and has been provided with instructions to see Dr. Balderas. Today, she deemed clinically stable enough to go home and follow up with primary care doctor. DISCHARGE EXAMINATION: GENERAL: Alert, oriented x 3. HEART: S1, S2 present. LUNGS: Anterior chest clear. ABDOMEN: Soft, nontender. Ileostomy is working, no leakage seen. EXTREMITIES: No edema. DISCHARGE DISPOSITION: Home. DISCHARGE CONDITION: Stable. FOLLOWUP: With Dr. Balderas as scheduled. DISCHARGE MEDICATIONS: Reviewed and reconciled, new scripts provided. Total time spent for discharge is 35 minutes for the patient education, counseling and coordination of care. BRANDAN STEPHEN MD DR: SILVER/saad JOB#: [id number] / [id number] ANNA
[2017-02-23] MEDS ORDERED: ALPR0.5T6 PO (12:07)
== END 2017-02-19 14:45 | disposition home or self-care (01) | DRG 330 ==
LOC: ER 00:36 → 6 SOUTH 02:07
PROVIDERS: ADMIT Internal Medicine; ATTEND Internal Medicine
PROC: 0DH64UZ Insertion of Feeding Device into Stomach, Percutaneous Endoscopic Approach (ICD-10-PCS; 2017-02-13)
PROC: 0D1B4Z4 Bypass Ileum to Cutaneous, Percutaneous Endoscopic Approach (ICD-10-PCS; principal; 2017-02-13 13:00)
DX: C78.6 Secondary malignant neoplasm of retroperitoneum and peritoneum (principal); K56.7 Ileus, unspecified; R65.10 Systemic inflammatory response syndrome (SIRS) of non-infectious origin without acute organ dysfunction; E44.0 Moderate protein-calorie malnutrition; D63.0 Anemia in neoplastic disease; E03.9 Hypothyroidism, unspecified; F32.9 Major depressive disorder, single episode, unspecified; G89.18 Other acute postprocedural pain; I10 Essential (primary) hypertension; Z85.038 Personal history of other malignant neoplasm of large intestine; Z85.6 Personal history of leukemia; Z90.49 Acquired absence of other specified parts of digestive tract; E07.9 Disorder of thyroid, unspecified; Z90.710 Acquired absence of both cervix and uterus
CPT/HCPCS: 36415; 74000; 74177; 80048; 80053; 81001; 83605; 83690; 84484; 85027; 87086; 87324; 93005; 96361; 96374; 96375; J0694; J1100; J1170; J1650; J2270; J2405; J2704; J2710; J3010; J3370; J3490; J7030; J7120; Q0164; Q9967; S0028; 97110; 97116; 97530; 97535; 99285-25

== ENCOUNTER 2017-02-21 21:04 | Inpatient (IN) | payer OTHER ==
[~2017-02-21] VITALS: Ht 162.6 cm; Wt 83.5 kg
[~2017-02-21 21:04] MED LIST changes: +Sertraline Hcl PO
[2017-02-21] MEDS ORDERED: IV NORMAL SALINE 1000ML BAG 1,000 ML IV SCH (21:35)
[2017-02-21] MEDS ORDERED: ONDANSETRON PF 4 MG/2 ML VIAL. IV ONE (21:45)
--- NOTE | 2017-02-21 21:53 | PHYS DOC ---
Past Medical History Past Medical History: Cancer, Hypertension, Hypothyroid Additional Past Medical Histor: thyroid disease, AML "survivor", STAGE 4 COLON CA Past Surgical History: Appendectomy, Cholecystectomy, Hysterectomy, Tonsillectomy Additional Past Surgical Histo: BOWEL RESECTION Alcohol Use: None Drug Use: None Adult General Chief Complaint Chief Complaint: DEHYDRATION HPI HPI Patient is a 61 year old female who presents with returning vomiting and abdominal pain since being home for the past 2 days from the hospital. States these are exactly the same symptoms that she dealt with prior, but not as severe. Now with lightheadedness with standing and low energy. States she is taking all of her medications as prescribed. She has multiple episodes of nbnb emesis. She notes some ileostomy output that is nonbloody, yet active. She denies fever, chest pain, dyspnea, headache. Review of Systems Review of Systems Constitutional: Denies fever or chills [] Eyes: Denies change in visual acuity, redness, or eye pain [] HENT: Denies nasal congestion or sore throat [] Respiratory: Denies cough or shortness of breath [] Cardiovascular: No additional information not addressed in HPI [] GI: Denies bloody stools or diarrhea [] : Denies dysuria or hematuria [] Musculoskeletal: Denies back pain or joint pain [] Integument: Denies rash or skin lesions [] Neurologic: Denies headache, focal weakness or sensory changes [] Endocrine: Denies polyuria or polydipsia [] Current Medications Current Medications Current Medications Medications (Trade) Dose Ordered Sig/Nneka Start Time Stop Time Status Last Admin Dose Admin Fentanyl Citrate (Fentanyl 2ml Vial) 75 mcg PRN Q15MIN PRN 02/21/17 21:45 02/22/17 21:44 02/21/17 22:11 75 MCG Ondansetron HCl (Zofran) 4 mg 1X ONCE 02/21/17 21:45 02/21/17 21:46 DC 02/21/17 22:10 4 MG Sodium Chloride 1,000 ml @ 1,000 mls/hr Q1H 02/21/17 21:35 02/21/17 22:34 DC 02/21/17 22:10 1,000 MLS/HR Allergies Allergies Allergies Coded Allergies Type Severity Reaction Last Updated Verified sulfamethoxazole Adverse Reaction Intermediate GI UPSET 02/13/17 Yes trimethoprim Adverse Reaction Mild GI UPSET 02/13/17 Yes Physical Exam Physical Exam Constitutional: Well developed, well nourished, no acute distress, non-toxic appearance. [] HENT: Normocephalic, atraumatic, bilateral external ears normal, oropharynx tachy, nose normal. [] Eyes: PERRLA, EOMI. [] Neck: Normal range of motion, supple. [] Cardiovascular:Heart rate regular rhythm [] Lungs & Thorax: Bilateral breath sounds clear to auscultation [] Abdomen: Bowel sounds normal, soft, mild general tenderness, well appearing midline incision, ostomy with green/brown output, g-tube in upper abd. [] Skin: Warm, dry, no erythema, no rash. [] Back: Normal ROM. [] Extremities: No tenderness, ROM intact, no edema. [] Neurologic: Alert and oriented X 3, normal motor function, normal sensory function, no focal deficits noted. [] Psychologic: Affect normal, judgement normal, mood normal. [] Current Patient Data Vital Signs Vital Signs Date Time Temp Pulse Resp B/P (MAP) Pulse Ox O2 Delivery O2 Flow Rate FiO2 02/21/17 21:20 98.4 77 12 167/74 (105) 98 Room Air 98.4 Lab Values Laboratory Tests Test 02/21/17 21:50 White Blood Count 13.0 x10^3/uL (4.0-11.0) H Red Blood Count 4.22 x10^6/uL (3.50-5.40) Hemoglobin 11.8 g/dL (12.0-15.5) L Hematocrit 36.2 % (36.0-47.0) Mean Corpuscular Volume 86 fL (79-100) Mean Corpuscular Hemoglobin 28 pg (25-35) Mean Corpuscular Hemoglobin Concent 33 g/dL (31-37) Red Cell Distribution Width 17.8 % (11.5-14.5) H Platelet Count 532 x10^3/uL (140-400) H Neutrophils (%) (Auto) 48 % (31-73) Lymphocytes (%) (Auto) 31 % (24-48) Monocytes (%) (Auto) 8 % (0-9) Eosinophils (%) (Auto) 11 % (0-3) H Basophils (%) (Auto) 1 % (0-3) Neutrophils # (Auto) 6.3 x10^3uL (1.8-7.7) Lymphocytes # (Auto) 4.0 x10^3/uL (1.0-4.8) Monocytes # (Auto) 1.1 x10^3/uL (0.0-1.1) Eosinophils # (Auto) 1.5 x10^3/uL (0.0-0.7) H Basophils # (Auto) 0.2 x10^3/uL (0.0-0.2) Sodium Level 132 mmol/L (136-145) L Potassium Level 3.7 mmol/L (3.5-5.1) Chloride Level 96 mmol/L (98-107) L Carbon Dioxide Level 27 mmol/L (21-32) Anion Gap 9 (6-14) Blood Urea Nitrogen 11 mg/dL (7-20) Creatinine 0.6 mg/dL (0.6-1.0) Estimated GFR (Cockcroft-Gault) 102.3 Glucose Level 108 mg/dL (70-99) H Calcium Level 9.3 mg/dL (8.5-10.1) Total Bilirubin 0.1 mg/dL (0.2-1.0) L Direct Bilirubin 0.1 mg/dL (0.0-0.2) Aspartate Amino Transferase (AST) 25 U/L (15-37) Alanine Aminotransferase (ALT) 39 U/L (14-59) Alkaline Phosphatase 64 U/L (46-116) Total Protein 6.8 g/dL (6.4-8.2) Albumin 2.9 g/dL (3.4-5.0) L Lipase 160 U/L (73-393) Laboratory Tests 02/21/17 21:50 Laboratory Tests 02/21/17 21:50 Course & Med Decision Making Course & Med Decision Making Pertinent Labs and Imaging studies reviewed. (See chart for details) Laboratory evaluation is largely unremarkable. Discussed case with Dr. Gonzalez, who will admit and recommends surgical consultation and oncology consultation. Dragon Disclaimer Dragon Disclaimer This electronic medical record was generated, in whole or in part, using a voice recognition dictation system. Departure Departure Impression: Primary Impression: Vomiting Additional Impression: Abdominal pain Disposition: ADMITTED INPATIENT Condition: STABLE Referrals: ZEHRA SMITH (PCP) Problem Qualifiers Primary Impression: Vomiting Vomiting type: unspecified Vomiting Intractability: intractable Nausea presence: with nausea Qualified Codes: R11.2 - Nausea with vomiting, unspecified Additional Impression: Abdominal pain Abdominal location: generalized Qualified Codes: R10.84 - Generalized abdominal pain Carmelo GARCIA MD February 21, 2017 21:53
[2017-02-21 22:03] LABS: BASO # 0.2 x10^3/uL (0.0-0.2); BASO % 1 % (0-3); EOS % 11 % (0-3); HEMATOCRIT 36.2 % (36.0-47.0); HEMOGLOBIN 11.8 g/dL (12.0-15.5); LYMPH % 31 % (24-48); MEAN CORPUSCULAR HEMOGLOBIN 28 pg (25-35); MEAN CORPUSCULAR HGB CONC 33 g/dL (31-37); MEAN CORPUSCULAR VOLUME 86 fL (79-100); MONO % 8 % (0-9); NEUT % 48 % (31-73); PLATELET COUNT 532 x10^3/uL (140-400); RED BLOOD COUNT 4.22 x10^6/uL (3.50-5.40); RED CELL DISTRIBUTION WIDTH 17.8 % (11.5-14.5)
[2017-02-21] MEDS: fentaNYL PF VIAL 100 MCG/2 ML VIAL IV PRN (22:11)
[2017-02-21 22:17] LABS: CALCIUM 9.3 mg/dL (8.5-10.1); CREATININE 0.6 mg/dL (0.6-1.0); GFR 102.3; POTASSIUM 3.7 mmol/L (3.5-5.1)
[2017-02-21 22:22] LABS: ALBUMIN 2.9 g/dL (3.4-5.0); DIRECT BILIRUBIN 0.1 mg/dL (0.0-0.2); TOTAL BILIRUBIN 0.1 mg/dL (0.2-1.0); TOTAL PROTEIN 6.8 g/dL (6.4-8.2)
[2017-02-21] MEDS ORDERED: ACETAMINOPHEN 325 MG TABLET. PO PRN (22:30)
[2017-02-21] MEDS ORDERED: ONDANSETRON PF 4 MG/2 ML VIAL. IV PRN (22:30)
[2017-02-21] MEDS ORDERED: fentaNYL PF VIAL 100 MCG/2 ML VIAL IV PRN (22:30)
[2017-02-22] VITALS (7 sets, daily range): BP systolic 116–143; BP diastolic 48–79
--- NOTE | 2017-02-22 00:02 | ACF ---
Admission Forms Criteria VOMITING Clinical Indications for Admission to Inpatient Care ( Place 'X' for any and all applicable criteria): Admission is indicated for 1 or more of the following(1)(2)(3): [ ]I. Complete or partial gastrointestinal obstruction [ ]II. Vomiting due to significant metabolic derangement (eg, severe hypercalcemia, diabetic ketoacidosis) [ ]III. Other cause of vomiting requiring hospitalization (eg, poisoning, increased intracranial pressure) [X]IV. Inpatient admission required rather than observation care because of 1 or more of the following [ ]i) Hemodynamic instability [X]ii) Vomiting that is severe or persistent indicated by 1 or more of the following 1) Numerous episodes of vomiting in past 24hours (eg, every 1 to 2 hours) 2) Suggests severe underlying cause or complication (eg , projectile, feculent, bilious, coffee ground, bloody) 3) Appropriate antiemetic treatment (eg, repeated oral or parenteral dosing) does not sufficiently reduce vomiting within 12 to 24 hours of treatment [X] 4) Treatment regimen necessary to adequately control vomiting requires inpatient level of care (eg, not immediately available in outpatient setting) [ ]iii) Severe electrolyte abnormalities requiring inpatient care [ ]iv) Severe pain requiring acute inpatient management( Continuous or frequent (eg, every 2 to 4 hours) parental analgesics or analgesic regimen that can only be performed or initiated in inpatient setting) [ ]v) High fever or infection requiring inpatient admission as indicated by 1 or more of the following(7)(8): [ ]1) Appropriate outpatient or observation care antimicrobial treatment unavailable, not effective, or not feasible [ ]2) Documented bacteremia [ ]3) Temp >104.9 degrees F (40.5 degrees C) (oral) [ ]4) Temp >103.1 degrees F (39.5 C) (oral) or <96.8 degrees F (36 C) (rectal) that does not respond to all emergency treatment measures [ ]vi) Acute renal failure [ ]vii) IV fluid required rather than oral rehydration to replace significant on going losses (greater than 3 L/m2 per day) [ ]viii) Parenteral nutrition regimen that must be implemented on inpatient basis [ ]ix) Other condition, treatment or monitoring requiring inpatient admission Extended stay beyond goal length of stay may be needed for(1)(4): [ ]a) Severe vomiting [ ]b) Persistent vomiting, vital sign changes, severe electrolyte imbalance , or diagnosed cause of vomiting that requires continued hospitalization (eg, gastrointestinal obstruction , increased intracranial pressure) [ ]c) Surgery to treat identified causes of vomiting (eg, bowel obstruction , intracranial process) [ ]d) Comorbid illness that requires inpatient care (eg, acute heart failure , renal failure) [ ]e) Need for inpatient endoscopy The original [employer] content created by [employer] has been revised. The portions of the content which have been revised are identified through the use of italic text or in bold, and [employer] has neither reviewed nor approved the modified material. All other unmodified content is copyright [employer]. Please see references footnoted in the original [employer] edition 2016 Admission Criteria Met?: Yes MELBA MCDERMOTT February 22, 2017 00:02
[2017-02-22] MEDS: fentaNYL PF VIAL 100 MCG/2 ML VIAL IV PRN (00:13)
[2017-02-22] MEDS: IV NORMAL SALINE 1000ML BAG 1,000 ML IV SCH ×3 (00:43→19:59)
--- NOTE | 2017-02-22 08:31 | PDOC1 ---
History and Physical Date of Admission Date of Admission DATE: 02/22/17 TIME: 08:30 Identification/Chief Complaint Chief Complaint nausea, weakness Problems: Source Source: Chart review, Patient History of Present Illness History of Present Illness Ms. Montemayor, is a 61 year old female, well known to this service, just DC 2 days from the hospital. She had some abd pain and nausea and poor PO intake. She states that she just was unable to drink or eat, and felt poorly. States these are exactly the same symptoms that she dealt with prior, but not as severe. some weakness, and difficulty walking well. States she is taking all of her medications as prescribed. vomited x2, normal stool recently. She denies fever, chest pain, dyspnea, headache. Past Medical History Cardiovascular: HTN Pulmonary: No pertinent hx GI: No pertinent hx Heme/Onc: Cancer Psych: Other Renal/: No pertinent hx Endocrine: Hypothyroidism Past Surgical History Past Surgical History: Colon Resection Family History Family History: No Significant Social History Smoke: No ALCOHOL: none Drugs: None Current Problem List Problem List Problems Medical Problems: (1) Abdominal pain Status: Acute (2) Vomiting Status: Acute Problems: Current Medications Current Medications Current Medications Fentanyl Citrate (Fentanyl 2ml Vial) 75 mcg PRN Q15MIN PRN IV PAIN GREATER THAN 3/10 Last administered on 02/22/17 00:13; Start 02/21/17 at 21:45; Stop 02/22 at 21:44 Sodium Chloride 1,000 ml @ 1,000 mls/hr Q1H IV Last administered on 02/21/17 22:10; Start 02/21/17 at 21:35; Stop 02/21/17 at 22:34; Status DC Ondansetron HCl (Zofran) 4 mg 1X ONCE IV Last administered on 02/21/17 22:10; Start 02/21/17 at 21:45; Stop 02/21/17 at 21:46; Status DC Ondansetron HCl (Zofran) 4 mg PRN Q8HRS PRN IV NAUSEA/VOMITING; Start 02/21/17 at 22:30; Stop 02/22/17 at 22:29 Fentanyl Citrate (Fentanyl 2ml Vial) 75 mcg PRN Q2HR PRN IV PAIN; Start at 22:30; Stop 02/22/17 at 22:29 Sodium Chloride 1,000 ml @ 100 mls/hr Q10H IV Last administered on 02/22/17t 00 :43; Start 02/21/17 at 22:30; Stop 02/22/17 at 22:29 Acetaminophen (Tylenol) 650 mg PRN Q4HRS PRN PO FEVER; Start 02/21/17 at 22:30; Stop 02/22/17 at 22:29 Active Scripts Active [Sertraline Hcl] 25 MG Tablet 25 Mg PO QHS Compazine (Prochlorperazine Maleate) 10 Mg Tablet 10 Mg PO Q8HRS Docusate Sodium 100 Mg Capsule 100 Mg PO PRN DAILY PRN Oxycodon-Acetaminophen 7.5-325 (Oxycodone Hcl/Acetaminophen) 1 Each Tablet 1 Tab PO PRN Q4HRS PRN Miralax (Polyethylene Glycol 3350) 17 Gm Powd.pack 17 Gm PO PRN DAILY PRN Reported Ambien (Zolpidem Tartrate) 5 Mg Tablet 1 Tab PO QHS Lisinopril-Hctz 20-25 Mg Tab (Lisinopril/Hydrochlorothiazide) 1 Each Tablet 1 Tab PO DAILY Levothyroxine Sodium 50 Mcg Tablet 1 Tab PO DAILY Allergies Allergies: Coded Allergies: sulfamethoxazole (Verified Adverse Reaction, Intermediate, GI UPSET, ) trimethoprim (Verified Adverse Reaction, Mild, GI UPSET, 02/13/17) ROS General: YES: Fatigue, Malaise, No: Chills, Night Sweats, Appetite, Other PSYCHOLOGICAL ROS: YES: Anxiety, No: Behavioral Disorder, Concentration difficultie, Decreased libido, Depression, Disorientation, Hallucinations, Hostility, Irritablity, Memory difficulties, Mood Swings, Obsessive thoughts, Physical abuse, Sexual abuse, Sleep disturbances, Suicidal ideation, Other Eyes: No Blurry vision, No Decreased vision, No Double vision, No Dry eyes, No Excessive tearing, No Eye Pain, No Itchy Eyes, No Loss of vision, No Photophobia , No Scotomata, No Uses contacts, No Uses glasses, No Other HEENT: No: Heacaches, Visual Changes, Hearing change, Nasal congestion, Nasal discharge, Oral lesions, Sinus pain, Sore Throat, Epistaxis, Sneezing, Snoring, Tinnitus, Vertigo, Vocal changes, Other Respiratory: No: Cough, Hemoptysis, Orthopnea, Pleuritic Pain, Shortness of breath, SOB with excertion, Sputum Changes, Stridor, Tachypnea, Wheezing, Other Cardiovascular: No Chest Pain, No Palpitations, No Orthopnea, No Paroxysmal Noc. Dyspnea, No Edema, No Lt Headedness, No Other Gastrointestinal: Yes Nausea, Yes Vomiting, Yes Abdominal Pain, No Diarrhea, No Constipation, No Melena, No Hematochezia, No Other Genitourinary: No Dysuria, No Frequency, No Incontinence, No Hematuria, No Retention, No Discharge, No Urgency, No Pain, No Flank Pain, No Other, No , No , No , No , No , No , No Musculoskeletal: Yes Gait Disturbance, No Joint Pain, No Joint Stiffness, No Joint Swelling, No Muscle Pain, No Muscular Weakness, No Pain In:, No Swelling In:, No Other Neurological: No Behavorial Changes, No Bowel/Bladder ControlChng, No Confusion , No Dizziness, No Gait Disturbance, No Headaches, No Impaired Coord/balance, No Memory Loss, No Numbness/Tingling, No Seizures, No Speech Problems, No Tremors, No Visual Changes, No Weakness, No Other Skin: No Dry Skin, No Eczema, No Hair Changes, No Lumps, No Mole Changes, No Mottling, No Nail Changes, No Pruritus, No Rash, No Skin Lesion Changes, No Other, No Acne Physical Exam General: Alert, Oriented X3, Cooperative, No acute distress HEENT: EOMI, Mucous membr. moist/pink Lungs: Normal air movement Heart: no gallops, no murmurs Abdomen: Soft, Other (sluggish sounds, g tube clear, midline sutures healing well) Extremities: No clubbing, No cyanosis, No edema, Normal pulses Skin: No significant lesion Neuro: Normal tone, Sensation intact Psych/Mental Status: Mental status NL, Mood NL Vitals Vitals Vital Signs Date Time Temp Pulse Resp B/P (MAP) Pulse Ox O2 Delivery O2 Flow Rate FiO2 02/22/17 07:10 Room Air 02/22/17 07:00 98.3 67 16 143/56 (85) 94 98.3 Labs Labs Laboratory Tests Test 02/21/17 21:50 02/21/17 22:15 White Blood Count 13.0 x10^3/uL (4.0-11.0) Red Blood Count 4.22 x10^6/uL (3.50-5.40) Hemoglobin 11.8 g/dL (12.0-15.5) Hematocrit 36.2 % (36.0-47.0) Mean Corpuscular Volume 86 fL (79-100) Mean Corpuscular Hemoglobin 28 pg (25-35) Mean Corpuscular Hemoglobin Concent 33 g/dL (31-37) Red Cell Distribution Width 17.8 % (11.5-14.5) Platelet Count 532 x10^3/uL (140-400) Neutrophils (%) (Auto) 48 % (31-73) Lymphocytes (%) (Auto) 31 % (24-48) Monocytes (%) (Auto) 8 % (0-9) Eosinophils (%) (Auto) 11 % (0-3) Basophils (%) (Auto) 1 % (0-3) Neutrophils # (Auto) 6.3 x10^3uL (1.8-7.7) Lymphocytes # (Auto) 4.0 x10^3/uL (1.0-4.8) Monocytes # (Auto) 1.1 x10^3/uL (0.0-1.1) Eosinophils # (Auto) 1.5 x10^3/uL (0.0-0.7) Basophils # (Auto) 0.2 x10^3/uL (0.0-0.2) Sodium Level 132 mmol/L (136-145) Potassium Level 3.7 mmol/L (3.5-5.1) Chloride Level 96 mmol/L (98-107) Carbon Dioxide Level 27 mmol/L (21-32) Anion Gap 9 (6-14) Blood Urea Nitrogen 11 mg/dL (7-20) Creatinine 0.6 mg/dL (0.6-1.0) Estimated GFR (Cockcroft-Gault) 102.3 Glucose Level 108 mg/dL (70-99) Calcium Level 9.3 mg/dL (8.5-10.1) Total Bilirubin 0.1 mg/dL (0.2-1.0) Direct Bilirubin 0.1 mg/dL (0.0-0.2) Aspartate Amino Transf (AST/SGOT) 25 U/L (15-37) Alanine Aminotransferase (ALT/SGPT) 39 U/L (14-59) Alkaline Phosphatase 64 U/L (46-116) Total Protein 6.8 g/dL (6.4-8.2) Albumin 2.9 g/dL (3.4-5.0) Lipase 160 U/L (73-393) Lactic Acid Level 1.4 mmol/L (0.4-2.0) Laboratory Tests Test 02/21/17 21:50 02/21/17 22:15 White Blood Count 13.0 x10^3/uL (4.0-11.0) Red Blood Count 4.22 x10^6/uL (3.50-5.40) Hemoglobin 11.8 g/dL (12.0-15.5) Hematocrit 36.2 % (36.0-47.0) Mean Corpuscular Volume 86 fL (79-100) Mean Corpuscular Hemoglobin 28 pg (25-35) Mean Corpuscular Hemoglobin Concent 33 g/dL (31-37) Red Cell Distribution Width 17.8 % (11.5-14.5) Platelet Count 532 x10^3/uL (140-400) Neutrophils (%) (Auto) 48 % (31-73) Lymphocytes (%) (Auto) 31 % (24-48) Monocytes (%) (Auto) 8 % (0-9) Eosinophils (%) (Auto) 11 % (0-3) Basophils (%) (Auto) 1 % (0-3) Neutrophils # (Auto) 6.3 x10^3uL (1.8-7.7) Lymphocytes # (Auto) 4.0 x10^3/uL (1.0-4.8) Monocytes # (Auto) 1.1 x10^3/uL (0.0-1.1) Eosinophils # (Auto) 1.5 x10^3/uL (0.0-0.7) Basophils # (Auto) 0.2 x10^3/uL (0.0-0.2) Sodium Level 132 mmol/L (136-145) Potassium Level 3.7 mmol/L (3.5-5.1) Chloride Level 96 mmol/L (98-107) Carbon Dioxide Level 27 mmol/L (21-32) Anion Gap 9 (6-14) Blood Urea Nitrogen 11 mg/dL (7-20) Creatinine 0.6 mg/dL (0.6-1.0) Estimated GFR (Cockcroft-Gault) 102.3 Glucose Level 108 mg/dL (70-99) Calcium Level 9.3 mg/dL (8.5-10.1) Total Bilirubin 0.1 mg/dL (0.2-1.0) Direct Bilirubin 0.1 mg/dL (0.0-0.2) Aspartate Amino Transf (AST/SGOT) 25 U/L (15-37) Alanine Aminotransferase (ALT/SGPT) 39 U/L (14-59) Alkaline Phosphatase 64 U/L (46-116) Total Protein 6.8 g/dL (6.4-8.2) Albumin 2.9 g/dL (3.4-5.0) Lipase 160 U/L (73-393) Lactic Acid Level 1.4 mmol/L (0.4-2.0) VTE Prophylaxis Ordered VTE Prophylaxis Devices: Yes VTE Pharmacological Prophylaxi: Yes Assessment/Plan Assessment/Plan nausea and vomiting dehydration stage IV colon cancer diverting vent g tube, per surgery obesity, BMI 31 mod/severe malnutrition priro ileus constipation, 2 home meds depression, stable admit for IV fluid, supportive care Pt and OT, try again she is not interested in palliative is DNR BETTINA SORIA MD February 22, 2017 08:31
--- NOTE | 2017-02-22 08:37 | PDOC2 ---
JESSIKA DENNIS [employer] DIRECT[employer] 02/22/17 0837: CONSULT Date of Consult Date of Consult DATE: 02/22/17 TIME: 08:31 Reason for Consult Reason for Consult: nausea Referring Physician Referring Physician: ER Identification/Chief Complaint Chief Complaint nausea Source Source: Chart review, Patient History of Present Illness Reason for Visit: Ongoing trouble with nausea, emesis, did not eat much, dehydration G tube connection was poor, and could not keep it to drainage well Ostomy has been leaking, wound care had worked with her yesterday Past Medical History Cardiovascular: HTN Pulmonary: No pertinent hx GI: No pertinent hx Heme/Onc: Cancer Psych: Other Renal/: No pertinent hx Endocrine: Hypothyroidism Past Surgical History Past Surgical History: Colon Resection, Other (ileostomy, g tube ) Family History Family History: No Significant Social History No ALCOHOL: none Drugs: None Current Problem List Problem List Problems Medical Problems: (1) Abdominal pain Status: Acute (2) Vomiting Status: Acute Current Medications Current Medications Current Medications Fentanyl Citrate (Fentanyl 2ml Vial) 75 mcg PRN Q15MIN PRN IV PAIN GREATER THAN 3/10 Last administered on 02/22/17 00:13; Start 02/21/17 at 21:45; Stop 02/22 at 21:44 Sodium Chloride 1,000 ml @ 1,000 mls/hr Q1H IV Last administered on 02/21/17 22:10; Start 02/21/17 at 21:35; Stop 02/21/17 at 22:34; Status DC Ondansetron HCl (Zofran) 4 mg 1X ONCE IV Last administered on 02/21/17 22:10; Start 02/21/17 at 21:45; Stop 02/21/17 at 21:46; Status DC Ondansetron HCl (Zofran) 4 mg PRN Q8HRS PRN IV NAUSEA/VOMITING; Start 02/21/17 at 22:30; Stop 02/22/17 at 22:29 Fentanyl Citrate (Fentanyl 2ml Vial) 75 mcg PRN Q2HR PRN IV PAIN; Start at 22:30; Stop 02/22/17 at 22:29 Sodium Chloride 1,000 ml @ 100 mls/hr Q10H IV Last administered on 02/22/17 00 :43; Start 02/21/17 at 22:30; Stop 02/22/17 at 22:29 Acetaminophen (Tylenol) 650 mg PRN Q4HRS PRN PO FEVER; Start 02/21/17 at 22:30; Stop 02/22/17 at 22:29 Active Scripts Active [Sertraline Hcl] 25 MG Tablet 25 Mg PO QHS Compazine (Prochlorperazine Maleate) 10 Mg Tablet 10 Mg PO Q8HRS Docusate Sodium 100 Mg Capsule 100 Mg PO PRN DAILY PRN Oxycodon-Acetaminophen 7.5-325 (Oxycodone Hcl/Acetaminophen) 1 Each Tablet 1 Tab PO PRN Q4HRS PRN Miralax (Polyethylene Glycol 3350) 17 Gm Powd.pack 17 Gm PO PRN DAILY PRN Reported Ambien (Zolpidem Tartrate) 5 Mg Tablet 1 Tab PO QHS Lisinopril-Hctz 20-25 Mg Tab (Lisinopril/Hydrochlorothiazide) 1 Each Tablet 1 Tab PO DAILY Levothyroxine Sodium 50 Mcg Tablet 1 Tab PO DAILY Allergies Allergies: Coded Allergies: sulfamethoxazole (Verified Adverse Reaction, Intermediate, GI UPSET, ) trimethoprim (Verified Adverse Reaction, Mild, GI UPSET, 02/13/17) ROS General: YES: Chills, Appetite (loss), Other (no fevers ) PSYCHOLOGICAL ROS: No: Anxiety, Depression Eyes: No Blurry vision, No Double vision HEENT: No: Heacaches, Sore Throat Hematological and Lymphatic: No: Bleeding Problems, Blood Clots Respiratory: No: Cough, Shortness of breath Cardiovascular: No Chest Pain, No Palpitations Gastrointestinal: Yes Other (see hpi) Genitourinary: No Dysuria, No Retention Musculoskeletal: No Joint Pain, No Muscle Pain Neurological: No Confusion, No Numbness/Tingling Skin: No Pruritus, No Rash Physical Exam General: Alert, Oriented X3, Cooperative, No acute distress HEENT: PERRLA, Mucous membr. moist/pink Lungs: Clear to auscultation, Normal air movement Heart: Regular rate, Normal S1, Normal S2, No murmurs Abdomen: Soft, Other (ND, NTTP, g tube in place, ostomy with liquid stool ) Extremities: No clubbing, No cyanosis Skin: No rashes, No breakdown Neuro: Normal speech, Sensation intact Psych/Mental Status: Mental status NL, Mood NL MUSCULOSKELETAL: No deformity, No swelling Vitals VITALS Vital Signs Date Time Temp Pulse Resp B/P (MAP) Pulse Ox O2 Delivery O2 Flow Rate FiO2 02/22/17 07:10 Room Air 02/22/17 07:00 98.3 67 16 143/56 (85) 94 98.3 Labs Labs Laboratory Tests Test 02/21/17 21:50 02/21/17 22:15 White Blood Count 13.0 x10^3/uL (4.0-11.0) Red Blood Count 4.22 x10^6/uL (3.50-5.40) Hemoglobin 11.8 g/dL (12.0-15.5) Hematocrit 36.2 % (36.0-47.0) Mean Corpuscular Volume 86 fL (79-100) Mean Corpuscular Hemoglobin 28 pg (25-35) Mean Corpuscular Hemoglobin Concent 33 g/dL (31-37) Red Cell Distribution Width 17.8 % (11.5-14.5) Platelet Count 532 x10^3/uL (140-400) Neutrophils (%) (Auto) 48 % (31-73) Lymphocytes (%) (Auto) 31 % (24-48) Monocytes (%) (Auto) 8 % (0-9) Eosinophils (%) (Auto) 11 % (0-3) Basophils (%) (Auto) 1 % (0-3) Neutrophils # (Auto) 6.3 x10^3uL (1.8-7.7) Lymphocytes # (Auto) 4.0 x10^3/uL (1.0-4.8) Monocytes # (Auto) 1.1 x10^3/uL (0.0-1.1) Eosinophils # (Auto) 1.5 x10^3/uL (0.0-0.7) Basophils # (Auto) 0.2 x10^3/uL (0.0-0.2) Sodium Level 132 mmol/L (136-145) Potassium Level 3.7 mmol/L (3.5-5.1) Chloride Level 96 mmol/L (98-107) Carbon Dioxide Level 27 mmol/L (21-32) Anion Gap 9 (6-14) Blood Urea Nitrogen 11 mg/dL (7-20) Creatinine 0.6 mg/dL (0.6-1.0) Estimated GFR (Cockcroft-Gault) 102.3 Glucose Level 108 mg/dL (70-99) Calcium Level 9.3 mg/dL (8.5-10.1) Total Bilirubin 0.1 mg/dL (0.2-1.0) Direct Bilirubin 0.1 mg/dL (0.0-0.2) Aspartate Amino Transf (AST/SGOT) 25 U/L (15-37) Alanine Aminotransferase (ALT/SGPT) 39 U/L (14-59) Alkaline Phosphatase 64 U/L (46-116) Total Protein 6.8 g/dL (6.4-8.2) Albumin 2.9 g/dL (3.4-5.0) Lipase 160 U/L (73-393) Lactic Acid Level 1.4 mmol/L (0.4-2.0) Laboratory Tests Test 02/21/17 21:50 02/21/17 22:15 White Blood Count 13.0 x10^3/uL (4.0-11.0) Red Blood Count 4.22 x10^6/uL (3.50-5.40) Hemoglobin 11.8 g/dL (12.0-15.5) Hematocrit 36.2 % (36.0-47.0) Mean Corpuscular Volume 86 fL (79-100) Mean Corpuscular Hemoglobin 28 pg (25-35) Mean Corpuscular Hemoglobin Concent 33 g/dL (31-37) Red Cell Distribution Width 17.8 % (11.5-14.5) Platelet Count 532 x10^3/uL (140-400) Neutrophils (%) (Auto) 48 % (31-73) Lymphocytes (%) (Auto) 31 % (24-48) Monocytes (%) (Auto) 8 % (0-9) Eosinophils (%) (Auto) 11 % (0-3) Basophils (%) (Auto) 1 % (0-3) Neutrophils # (Auto) 6.3 x10^3uL (1.8-7.7) Lymphocytes # (Auto) 4.0 x10^3/uL (1.0-4.8) Monocytes # (Auto) 1.1 x10^3/uL (0.0-1.1) Eosinophils # (Auto) 1.5 x10^3/uL (0.0-0.7) Basophils # (Auto) 0.2 x10^3/uL (0.0-0.2) Sodium Level 132 mmol/L (136-145) Potassium Level 3.7 mmol/L (3.5-5.1) Chloride Level 96 mmol/L (98-107) Carbon Dioxide Level 27 mmol/L (21-32) Anion Gap 9 (6-14) Blood Urea Nitrogen 11 mg/dL (7-20) Creatinine 0.6 mg/dL (0.6-1.0) Estimated GFR (Cockcroft-Gault) 102.3 Glucose Level 108 mg/dL (70-99) Calcium Level 9.3 mg/dL (8.5-10.1) Total Bilirubin 0.1 mg/dL (0.2-1.0) Direct Bilirubin 0.1 mg/dL (0.0-0.2) Aspartate Amino Transf (AST/SGOT) 25 U/L (15-37) Alanine Aminotransferase (ALT/SGPT) 39 U/L (14-59) Alkaline Phosphatase 64 U/L (46-116) Total Protein 6.8 g/dL (6.4-8.2) Albumin 2.9 g/dL (3.4-5.0) Lipase 160 U/L (73-393) Lactic Acid Level 1.4 mmol/L (0.4-2.0) Assessment/Plan Assessment/Plan abdominal pain, nausea, vomiting colon cancer g tube drainage as needed for n/v will ask wound care to see for ongoing ostomy needs, has been difficult to keep a good seal supportive measures of analgesics, antiemetics SERGIO LUNDY MD 02/22/17 1056: CONSULT Allergies Allergies: Coded Allergies: sulfamethoxazole (Verified Adverse Reaction, Intermediate, GI UPSET, ) trimethoprim (Verified Adverse Reaction, Mild, GI UPSET, 02/13/17) Assessment/Plan Assessment/Plan Patient seen and examined by me. She is tearful and depressed. Has nausea but no pain. Abd is soft, ND NT ileostomy with some erythema. G tube in place. Agree with Davis's assessment and plan. JESSIKA DENNIS APRN February 22, 2017 08:37 SERGIO LUNDY MD February 22, 2017 10:56
[2017-02-22] MEDS ORDERED: DOCUSATE SODIUM 100 MG CAPSULE. PO PRN (08:45)
[2017-02-22] MEDS ORDERED: POLYETHYLENE GLYCOL 3350 17 GM PACKET. PO PRN (08:45)
[2017-02-22] MEDS: SERTRALINE 25 MG TABLET. PO SCH ×2 (09:00→22:00)
--- NOTE | 2017-02-22 09:04 | PDOC ---
Provider Note Provider Note Onc consult dictated- [id number] Stage IV colon cancer with peritoneal mets- Wants aggressive mgt. Aware that pall chemo can't start until PS and nutritional status improves. Ileus Dr. Corona will return Saturday if she remains admitted, otherwise outpt visit already scheduled next week. OSVALDO NOVOA DO February 22, 2017 09:04
[2017-02-22] MEDS ORDERED: ALPRAZolam 0.5 MG TABLET PO PRN (09:15)
[2017-02-22] MEDS: LEVOTHYROXINE 50 MCG TABLET PO SCH (09:19)
[2017-02-22] MEDS: PROCHLORPERAZINE 5 MG TABLET. PO SCH ×3 (09:19→22:00)
[2017-02-22] MEDS: hydroCHLOROthiazide 25 MG TABLET PO SCH (09:20)
[2017-02-22] MEDS: LISINOPRIL 20 MG TABLET PO SCH (09:21)
[2017-02-22] MEDS: oxyCODONE/APAP 7.5/325 1 TAB TABLET PO PRN ×2 (11:57→22:00)
[2017-02-22] MEDS ORDERED: ZOLPIDEM 5 MG TABLET. PO SCH (21:00)
--- NOTE | 2017-02-22 23:49 | CONS ---
DATE OF CONSULTATION: 02/22/2017 REFERRING PROVIDER: Dr. Gonzalez. REASON FOR CONSULTATION: Colon cancer, leukocytosis. HISTORY OF PRESENT ILLNESS: The patient is a 61-year-old female who was unfortunately very recently found to have stage IV colon cancer with omental caking and peritoneal metastasis. She underwent recent transverse colectomy and G-tube placement, but has had multiple admissions for ongoing abdominal complaints. She reports this morning that her G-tube has had some venting problems. She presents again with significant nausea. She had planned to see Dr. Corona in clinic next week to discuss palliative chemotherapy. PAST MEDICAL HISTORY: AML, status post successful consolidative chemotherapy in 2007, ongoing mild leukocytosis, hypertension, hypothyroidism, heart disease, recent colon cancer diagnosis. PAST SURGICAL HISTORY: Colectomy, hysterectomy, thyroidectomy, appendectomy, transverse colectomy and recent G-tube placement. FAMILY HISTORY: Brother had some form of cancer. SOCIAL HISTORY: No tobacco, alcohol or drug use, though previously did smoke for 40 years. ALLERGIES: BACTRIM. CURRENT MEDICATIONS: Ambien, Synthroid, hydrochlorothiazide, Zoloft, Compazine, lisinopril, MiraLax, Percocet, Colace, Tylenol and fentanyl. REVIEW OF SYSTEMS: Ten point review of systems completed and unremarkable with the exception of this ongoing nausea and occasional abdominal distention. PHYSICAL EXAMINATION: VITAL SIGNS: Temperature 98.3, pulse 67, respiratory rate 16, blood pressure 143/56, 94% O2 on room air. GENERAL: She is alert and oriented, fatigued, no distress at this time. HEENT: Dry mucous membranes. No scleral icterus. CARDIOVASCULAR: Heart is regular in rhythm and rate. LUNGS: Clear to auscultation bilaterally. ABDOMEN: Distended, G-tube in place, soft. EXTREMITIES: No edema. NEUROLOGIC: No focal deficits. IMAGING AND LABORATORY DATA: CBC at her baseline with WBC 13.0, platelets 532. CMP showing sodium 132, albumin 2.9, otherwise unremarkable. Recent CT of the abdomen and pelvis on 02/09/2017 did show diffusely dilated fluid filled small bowel. CT of chest was negative for any metastatic disease. ASSESSMENT AND PLAN: The patient is a 61-year-old female with the following medical problems: Recently diagnosed stage IV colon cancer with peritoneal metastasis, status post transverse colectomy with G-tube placement and repeated admissions for ongoing nausea/vomiting. She still does wish to be aggressive in her care. She had an appointment scheduled next week with Dr. Corona to discuss palliative chemotherapy. She is aware that her performance status and nutritional status have to improve before she can tolerate such chemotherapy. Dr. Corona will return next week and we will see how she is doing. She seems to have issues with ongoing ileus and hopefully with supportive care will improve through the weekend. Dr. Balderas will also see her again. Thank you again for alerting us of her admission. Dr. Alcala will be covering this weekend if acute issues occur. Dr. Corona will return on Saturday. Discussed with Dr. Kemp. OSVALDO NOVOA DO DR: JAMES/saad JOB#: [id number] / [id number] ANNA
[2017-02-23 03:24] VITALS: BP 145/68
[2017-02-23] MEDS: LEVOTHYROXINE 50 MCG TABLET PO SCH (05:42)
[2017-02-23] MEDS: oxyCODONE/APAP 7.5/325 1 TAB TABLET PO PRN (05:43)
[2017-02-23] MEDS: PROCHLORPERAZINE 5 MG TABLET. PO SCH (05:43)
[2017-02-23 06:18] LABS: BASO # 0.1 x10^3/uL (0.0-0.2); BASO % 1 % (0-3); EOS % 11 % (0-3); HEMATOCRIT 35.9 % (36.0-47.0); HEMOGLOBIN 11.6 g/dL (12.0-15.5); LYMPH % 33 % (24-48); MEAN CORPUSCULAR HEMOGLOBIN 28 pg (25-35); MEAN CORPUSCULAR HGB CONC 32 g/dL (31-37); MEAN CORPUSCULAR VOLUME 86 fL (79-100); MONO % 9 % (0-9); NEUT % 46 % (31-73); PLATELET COUNT 497 x10^3/uL (140-400); RED BLOOD COUNT 4.16 x10^6/uL (3.50-5.40); RED CELL DISTRIBUTION WIDTH 17.8 % (11.5-14.5); WHITE BLOOD COUNT 9.3 x10^3/uL (4.0-11.0)
[2017-02-23 06:35] LABS: ALBUMIN 2.9 g/dL (3.4-5.0); ALBUMIN/GLOBULIN RATIO 0.8 (1.0-1.7); CALCIUM 8.7 mg/dL (8.5-10.1); CREATININE 0.7 mg/dL (0.6-1.0); GFR 85.6; POTASSIUM 3.6 mmol/L (3.5-5.1); TOTAL BILIRUBIN 0.2 mg/dL (0.2-1.0); TOTAL PROTEIN 6.6 g/dL (6.4-8.2)
[2017-02-23 07:00] VITALS: BP 140/59
[2017-02-23] MEDS: hydroCHLOROthiazide 25 MG TABLET PO SCH (08:18)
[2017-02-23] MEDS: LISINOPRIL 20 MG TABLET PO SCH (08:19)
--- NOTE | 2017-02-23 09:10 | PDOC ---
JESSIKA DENNIS [employer] 02/23/17 0910: SURGICAL PROGRESS NOTE Subjective feeling better tolerating diet, no emesis, nausea managed still having issues with stoma/leaking Vital Signs Vital Signs Date Time Temp Pulse Resp B/P (MAP) Pulse Ox O2 Delivery O2 Flow Rate FiO2 02/23/17 08:19 64 140/59 02/23/17 07:10 Room Air 02/23/17 07:00 97.9 18 93 97.9 I&O Intake and Output 02/23/17 06:59 Intake Total 1542 ml Output Total 200 ml Balance 1342 ml Intake Oral 460 ml IV Total 1082 ml Stool Total 200 ml # Voids 5 General: Alert, Oriented X3, Cooperative, No acute distress Abdomen: Soft, No tenderness Labs Laboratory Tests Test 02/21/17 21:50 02/21/17 22:15 02/23/17 04:55 White Blood Count 13.0 x10^3/uL (4.0-11.0) 9.3 x10^3/uL (4.0-11.0) Red Blood Count 4.22 x10^6/uL (3.50-5.40) 4.16 x10^6/uL (3.50-5.40) Hemoglobin 11.8 g/dL (12.0-15.5) 11.6 g/dL (12.0-15.5) Hematocrit 36.2 % (36.0-47.0) 35.9 % (36.0-47.0) Mean Corpuscular Volume 86 fL (79-100) 86 fL (79-100) Mean Corpuscular Hemoglobin 28 pg (25-35) 28 pg (25-35) Mean Corpuscular Hemoglobin Concent 33 g/dL (31-37) 32 g/dL (31-37) Red Cell Distribution Width 17.8 % (11.5-14.5) 17.8 % (11.5-14.5) Platelet Count 532 x10^3/uL (140-400) 497 x10^3/uL (140-400) Neutrophils (%) (Auto) 48 % (31-73) 46 % (31-73) Lymphocytes (%) (Auto) 31 % (24-48) 33 % (24-48) Monocytes (%) (Auto) 8 % (0-9) 9 % (0-9) Eosinophils (%) (Auto) 11 % (0-3) 11 % (0-3) Basophils (%) (Auto) 1 % (0-3) 1 % (0-3) Neutrophils # (Auto) 6.3 x10^3uL (1.8-7.7) 4.2 x10^3uL (1.8-7.7) Lymphocytes # (Auto) 4.0 x10^3/uL (1.0-4.8) 3.0 x10^3/uL (1.0-4.8) Monocytes # (Auto) 1.1 x10^3/uL (0.0-1.1) 0.9 x10^3/uL (0.0-1.1) Eosinophils # (Auto) 1.5 x10^3/uL (0.0-0.7) 1.0 x10^3/uL (0.0-0.7) Basophils # (Auto) 0.2 x10^3/uL (0.0-0.2) 0.1 x10^3/uL (0.0-0.2) Sodium Level 132 mmol/L (136-145) 136 mmol/L (136-145) Potassium Level 3.7 mmol/L (3.5-5.1) 3.6 mmol/L (3.5-5.1) Chloride Level 96 mmol/L (98-107) 100 mmol/L (98-107) Carbon Dioxide Level 27 mmol/L (21-32) 30 mmol/L (21-32) Anion Gap 9 (6-14) 6 (6-14) Blood Urea Nitrogen 11 mg/dL (7-20) 10 mg/dL (7-20) Creatinine 0.6 mg/dL (0.6-1.0) 0.7 mg/dL (0.6-1.0) Estimated GFR (Cockcroft-Gault) 102.3 85.6 Glucose Level 108 mg/dL (70-99) 79 mg/dL (70-99) Calcium Level 9.3 mg/dL (8.5-10.1) 8.7 mg/dL (8.5-10.1) Total Bilirubin 0.1 mg/dL (0.2-1.0) 0.2 mg/dL (0.2-1.0) Direct Bilirubin 0.1 mg/dL (0.0-0.2) Aspartate Amino Transf (AST/SGOT) 25 U/L (15-37) 27 U/L (15-37) Alanine Aminotransferase (ALT/SGPT) 39 U/L (14-59) 45 U/L (14-59) Alkaline Phosphatase 64 U/L (46-116) 65 U/L (46-116) Total Protein 6.8 g/dL (6.4-8.2) 6.6 g/dL (6.4-8.2) Albumin 2.9 g/dL (3.4-5.0) 2.9 g/dL (3.4-5.0) Lipase 160 U/L (73-393) Lactic Acid Level 1.4 mmol/L (0.4-2.0) BUN/Creatinine Ratio 14 (6-20) Albumin/Globulin Ratio 0.8 (1.0-1.7) Laboratory Tests Test 02/23/17 04:55 White Blood Count 9.3 x10^3/uL (4.0-11.0) Red Blood Count 4.16 x10^6/uL (3.50-5.40) Hemoglobin 11.6 g/dL (12.0-15.5) Hematocrit 35.9 % (36.0-47.0) Mean Corpuscular Volume 86 fL (79-100) Mean Corpuscular Hemoglobin 28 pg (25-35) Mean Corpuscular Hemoglobin Concent 32 g/dL (31-37) Red Cell Distribution Width 17.8 % (11.5-14.5) Platelet Count 497 x10^3/uL (140-400) Neutrophils (%) (Auto) 46 % (31-73) Lymphocytes (%) (Auto) 33 % (24-48) Monocytes (%) (Auto) 9 % (0-9) Eosinophils (%) (Auto) 11 % (0-3) Basophils (%) (Auto) 1 % (0-3) Neutrophils # (Auto) 4.2 x10^3uL (1.8-7.7) Lymphocytes # (Auto) 3.0 x10^3/uL (1.0-4.8) Monocytes # (Auto) 0.9 x10^3/uL (0.0-1.1) Eosinophils # (Auto) 1.0 x10^3/uL (0.0-0.7) Basophils # (Auto) 0.1 x10^3/uL (0.0-0.2) Sodium Level 136 mmol/L (136-145) Potassium Level 3.6 mmol/L (3.5-5.1) Chloride Level 100 mmol/L (98-107) Carbon Dioxide Level 30 mmol/L (21-32) Anion Gap 6 (6-14) Blood Urea Nitrogen 10 mg/dL (7-20) Creatinine 0.7 mg/dL (0.6-1.0) Estimated GFR (Cockcroft-Gault) 85.6 BUN/Creatinine Ratio 14 (6-20) Glucose Level 79 mg/dL (70-99) Calcium Level 8.7 mg/dL (8.5-10.1) Total Bilirubin 0.2 mg/dL (0.2-1.0) Aspartate Amino Transf (AST/SGOT) 27 U/L (15-37) Alanine Aminotransferase (ALT/SGPT) 45 U/L (14-59) Alkaline Phosphatase 65 U/L (46-116) Total Protein 6.6 g/dL (6.4-8.2) Albumin 2.9 g/dL (3.4-5.0) Albumin/Globulin Ratio 0.8 (1.0-1.7) Problem List Problems Medical Problems: (1) Abdominal pain Status: Acute (2) Vomiting Status: Acute Assessment/Plan symptom control supportive measures Problems: SERGIO LUNDY MD 02/23/17 0921: SURGICAL PROGRESS NOTE Assessment/Plan Over all feeling better. Continue to work on better stoma management. Agree with Davis's assessment and plan. Problems: JESSIKA DENNIS APRN February 23, 2017 09:10 SERGIO LUNDY MD February 23, 2017 09:21
[2017-02-23 11:00] VITALS: BP 166/70
[2017-02-23] MEDS ORDERED: ALPR0.5T6 PO (12:07)
--- NOTE | 2017-02-23 12:22 | PDOC3 ---
Discharge Summary Visit Information Date of Admission: February 21, 2017 Date of Discharge: February 23, 2017 Admitting Diagnosis: nausea and vomting Final Diagnosis nausea and vomiting dehydration stage IV colon cancer diverting vent g tube, per surgery obesity, BMI 31 mod/severe malnutrition ileus constipation, 2 home meds depression, w/ anxiety related to medical condition DNR Problems Medical Problems: (1) Abdominal pain Status: Acute (2) Vomiting Status: Acute Brief Hospital Course Allergies Allergies Coded Allergies Type Severity Reaction Last Updated Verified sulfamethoxazole Adverse Reaction Intermediate GI UPSET 02/13/17 Yes trimethoprim Adverse Reaction Mild GI UPSET 02/13/17 Yes Vital Signs Vital Signs Date Time Temp Pulse Resp B/P (MAP) Pulse Ox O2 Delivery O2 Flow Rate FiO2 02/23/17 11:00 98.3 70 18 166/70 (102) 96 Room Air 98.3 Lab Results Laboratory Tests Test 02/21/17 21:50 02/21/17 22:15 02/23/17 04:55 White Blood Count 13.0 x10^3/uL (4.0-11.0) 9.3 x10^3/uL (4.0-11.0) Red Blood Count 4.22 x10^6/uL (3.50-5.40) 4.16 x10^6/uL (3.50-5.40) Hemoglobin 11.8 g/dL (12.0-15.5) 11.6 g/dL (12.0-15.5) Hematocrit 36.2 % (36.0-47.0) 35.9 % (36.0-47.0) Mean Corpuscular Volume 86 fL (79-100) 86 fL (79-100) Mean Corpuscular Hemoglobin 28 pg (25-35) 28 pg (25-35) Mean Corpuscular Hemoglobin Concent 33 g/dL (31-37) 32 g/dL (31-37) Red Cell Distribution Width 17.8 % (11.5-14.5) 17.8 % (11.5-14.5) Platelet Count 532 x10^3/uL (140-400) 497 x10^3/uL (140-400) Neutrophils (%) (Auto) 48 % (31-73) 46 % (31-73) Lymphocytes (%) (Auto) 31 % (24-48) 33 % (24-48) Monocytes (%) (Auto) 8 % (0-9) 9 % (0-9) Eosinophils (%) (Auto) 11 % (0-3) 11 % (0-3) Basophils (%) (Auto) 1 % (0-3) 1 % (0-3) Neutrophils # (Auto) 6.3 x10^3uL (1.8-7.7) 4.2 x10^3uL (1.8-7.7) Lymphocytes # (Auto) 4.0 x10^3/uL (1.0-4.8) 3.0 x10^3/uL (1.0-4.8) Monocytes # (Auto) 1.1 x10^3/uL (0.0-1.1) 0.9 x10^3/uL (0.0-1.1) Eosinophils # (Auto) 1.5 x10^3/uL (0.0-0.7) 1.0 x10^3/uL (0.0-0.7) Basophils # (Auto) 0.2 x10^3/uL (0.0-0.2) 0.1 x10^3/uL (0.0-0.2) Sodium Level 132 mmol/L (136-145) 136 mmol/L (136-145) Potassium Level 3.7 mmol/L (3.5-5.1) 3.6 mmol/L (3.5-5.1) Chloride Level 96 mmol/L (98-107) 100 mmol/L (98-107) Carbon Dioxide Level 27 mmol/L (21-32) 30 mmol/L (21-32) Anion Gap 9 (6-14) 6 (6-14) Blood Urea Nitrogen 11 mg/dL (7-20) 10 mg/dL (7-20) Creatinine 0.6 mg/dL (0.6-1.0) 0.7 mg/dL (0.6-1.0) Estimated GFR (Cockcroft-Gault) 102.3 85.6 Glucose Level 108 mg/dL (70-99) 79 mg/dL (70-99) Calcium Level 9.3 mg/dL (8.5-10.1) 8.7 mg/dL (8.5-10.1) Total Bilirubin 0.1 mg/dL (0.2-1.0) 0.2 mg/dL (0.2-1.0) Direct Bilirubin 0.1 mg/dL (0.0-0.2) Aspartate Amino Transf (AST/SGOT) 25 U/L (15-37) 27 U/L (15-37) Alanine Aminotransferase (ALT/SGPT) 39 U/L (14-59) 45 U/L (14-59) Alkaline Phosphatase 64 U/L (46-116) 65 U/L (46-116) Total Protein 6.8 g/dL (6.4-8.2) 6.6 g/dL (6.4-8.2) Albumin 2.9 g/dL (3.4-5.0) 2.9 g/dL (3.4-5.0) Lipase 160 U/L (73-393) Lactic Acid Level 1.4 mmol/L (0.4-2.0) BUN/Creatinine Ratio 14 (6-20) Albumin/Globulin Ratio 0.8 (1.0-1.7) Laboratory Tests Test 02/23/17 04:55 White Blood Count 9.3 x10^3/uL (4.0-11.0) Red Blood Count 4.16 x10^6/uL (3.50-5.40) Hemoglobin 11.6 g/dL (12.0-15.5) Hematocrit 35.9 % (36.0-47.0) Mean Corpuscular Volume 86 fL (79-100) Mean Corpuscular Hemoglobin 28 pg (25-35) Mean Corpuscular Hemoglobin Concent 32 g/dL (31-37) Red Cell Distribution Width 17.8 % (11.5-14.5) Platelet Count 497 x10^3/uL (140-400) Neutrophils (%) (Auto) 46 % (31-73) Lymphocytes (%) (Auto) 33 % (24-48) Monocytes (%) (Auto) 9 % (0-9) Eosinophils (%) (Auto) 11 % (0-3) Basophils (%) (Auto) 1 % (0-3) Neutrophils # (Auto) 4.2 x10^3uL (1.8-7.7) Lymphocytes # (Auto) 3.0 x10^3/uL (1.0-4.8) Monocytes # (Auto) 0.9 x10^3/uL (0.0-1.1) Eosinophils # (Auto) 1.0 x10^3/uL (0.0-0.7) Basophils # (Auto) 0.1 x10^3/uL (0.0-0.2) Sodium Level 136 mmol/L (136-145) Potassium Level 3.6 mmol/L (3.5-5.1) Chloride Level 100 mmol/L (98-107) Carbon Dioxide Level 30 mmol/L (21-32) Anion Gap 6 (6-14) Blood Urea Nitrogen 10 mg/dL (7-20) Creatinine 0.7 mg/dL (0.6-1.0) Estimated GFR (Cockcroft-Gault) 85.6 BUN/Creatinine Ratio 14 (6-20) Glucose Level 79 mg/dL (70-99) Calcium Level 8.7 mg/dL (8.5-10.1) Total Bilirubin 0.2 mg/dL (0.2-1.0) Aspartate Amino Transf (AST/SGOT) 27 U/L (15-37) Alanine Aminotransferase (ALT/SGPT) 45 U/L (14-59) Alkaline Phosphatase 65 U/L (46-116) Total Protein 6.6 g/dL (6.4-8.2) Albumin 2.9 g/dL (3.4-5.0) Albumin/Globulin Ratio 0.8 (1.0-1.7) Brief Hospital Course Ms. Montemayor is a 61 old female, well known to this service, just DC 2 days prior, returned with Nausea and vomiting, she felt exac. by anxiety, dehydration, poor po intake and felt poorly. same symptoms that she dealt with prior better with sx control, IV fluid, I discussed closer f/u in Onc clininc, consider outpatient IV fluid, maybe 1 liters QOD, Dr. Olvera will discuss with their clinic Discharge Information Condition at Discharge: Improved Follow Up: Weeks Disposition/Orders: D/C to Home w/ HH Scheduled Levothyroxine Sodium (Levothyroxine Sodium), 1 TAB PO DAILY, (Reported) Lisinopril/Hydrochlorothiazide (Lisinopril-Hctz 20-25 Mg Tab), 1 TAB PO DAILY, ( Reported) Prochlorperazine Maleate (Compazine), 10 MG PO Q8HRS Zolpidem Tartrate (Ambien), 1 TAB PO QHS, (Reported) [Sertraline Hcl], 25 MG PO QHS Scheduled PRN Alprazolam (Alprazolam), 0.5 MG PO PRN Q8HRS PRN for ANXIETY / AGITATION Docusate Sodium (Docusate Sodium), 100 MG PO PRN DAILY PRN for CONSTIPATION Oxycodone Hcl/Acetaminophen (Oxycodon-Acetaminophen 7.5-325), 1 TAB PO PRN Q4HRS PRN for MODERATE PAIN Polyethylene Glycol 3350 (Miralax), 17 GM PO PRN DAILY PRN for CONSTIPATION Patient Instructions Patient Instructions time > 30 min new script for Xanax PRN f/u Dr. Corona next week BETTINA SORIA MD February 23, 2017 12:22
== END 2017-02-23 13:43 | disposition home health service (06) | DRG 640 ==
LOC: ER 21:04 → 4 NORTH 21:50
PROVIDERS: ADMIT Internal Medicine; ATTEND Internal Medicine
DX: E86.0 Dehydration (principal); E43 Unspecified severe protein-calorie malnutrition; C18.9 Malignant neoplasm of colon, unspecified; C78.6 Secondary malignant neoplasm of retroperitoneum and peritoneum; R11.2 Nausea with vomiting, unspecified; E87.1 Hypo-osmolality and hyponatremia; E03.9 Hypothyroidism, unspecified; E66.9 Obesity, unspecified; F32.9 Major depressive disorder, single episode, unspecified; F41.9 Anxiety disorder, unspecified; D72.829 Elevated white blood cell count, unspecified; I10 Essential (primary) hypertension; Z66 Do not resuscitate; Z68.31 Body mass index [BMI] 31.0-31.9, adult; Z85.038 Personal history of other malignant neoplasm of large intestine; Z85.6 Personal history of leukemia; Z90.49 Acquired absence of other specified parts of digestive tract; Z92.21 Personal history of antineoplastic chemotherapy; Z93.1 Gastrostomy status; Z90.710 Acquired absence of both cervix and uterus; Z88.2 Allergy status to sulfonamides; Z88.1 Allergy status to other antibiotic agents
CPT/HCPCS: 36415; 80048; 80053; 80076; 83605; 83690; 85027; 96361; 96374; 96375; J2405; J3010; J7030; Q0164; 99285-25

== ENCOUNTER 2017-02-24 23:11 | Emergency (ER) | payer OTHER ==
[~2017-02-24] VITALS: Ht 172.7 cm; Wt 83.5 kg
[~2017-02-24 23:11] MED LIST changes: +ALPR0.5T6 PO
[2017-02-24] MEDS ORDERED: ONDANSETRON ODT 4 MG TAB.RAPDIS. PO ONE (23:55)
[2017-02-24] MEDS ORDERED: HYDROmorphone 2 MG/ML VIAL IM ONE (23:55)
--- NOTE | 2017-02-25 00:07 | PHYS DOC ---
Past Medical History Past Medical History: Cancer, Hypertension, Hypothyroid Additional Past Medical Histor: thyroid disease, AML "survivor", STAGE 4 COLON CA Past Surgical History: Appendectomy, Cholecystectomy, Hysterectomy, Tonsillectomy Additional Past Surgical Histo: BOWEL RESECTION Alcohol Use: None Drug Use: None Adult General Chief Complaint Chief Complaint: POST-OP PROBLEM HPI HPI The patient is a 61-year-old female who was unfortunately very recently found to have stage IV colon cancer with omental caking and peritoneal metastasis who underwent recent transverse colectomy and G-tube placement, but has had multiple admissions for ongoing abdominal complaints. Patient presents to the ER today secondary to leaking around her colostomy bag. Patient reports that she has home health that comes to assist her with this. Patient reports that she does have an appointment coming up with her primary care physician as well as her oncologist in the upcoming week. Patient reports that she's got discomfort around the site secondary to a rash and irritation of the skin. Patient denies any fevers shakes chills. Patient reports that she is nauseous. Patient has any cough cold runny nose. Patient is complaining of diffuse abdominal discomfort. Patient reports decreased by mouth intake but she has been able to keep some ice and liquids down without any problems at home. Past Medical History AML, status post successful consolidative chemotherapy in 2007, ongoing mild leukocytosis, hypertension, hypothyroidism, heart disease, recent colon cancer diagnosis. Past Surgical History Past Surgical History: Colectomy, hysterectomy, thyroidectomy, appendectomy, transverse colectomy and recent G-tube placement. Family History Family History: No Significant Social History Smoke: No ALCOHOL: none Drugs: None Patient's physical exam is significant for mild tenderness to palpation diffusely throughout her abdomen. Patient does have normal active bowel sounds. Patient has no rebound or guarding. Patient does not present with any signs or symptoms O be consistent with an acute surgical abdomen at this time. Upon evaluation of her colostomy bag is a significant amount of diarrhea as noted, from her colostomy site. There is some stool draining and sleeping around the colostomy bag. Patient's vital signs are all within normal limits. Patient does not appear to be dehydrated clinically. Patient does appear to have episodes of jerking anxiety-type movements which the family reports his constant with her typical anxiety type behavior. A/P #1 leaking colostomy site we will attempt to replace her colostomy bag and provide a seal that might be more of a barrier. Patient was given 1 mg of IM Dilaudid as well as 1 mg of Ativan IM to assist her with her pain and her anxiety prior to changing her colostomy bag. Patient is clinically hemodynamically stable and will be discharged home in stable condition no be instructed to follow-up with her primary care physician as instructed and scheduled. Review of Systems Review of Systems Constitutional: Denies fever or chills [] Eyes: Denies change in visual acuity, redness, or eye pain [] All other review systems are negative except as documented in the history of present illness portion. Current Medications Current Medications Current Medications Medications (Trade) Dose Ordered Sig/Nneka Start Time Stop Time Status Last Admin Dose Admin Hydromorphone HCl (Dilaudid) 1 mg 1X ONCE 02/24/17 23:55 02/24/17 23:56 DC 02/25/17 00:16 1 MG Lorazepam (Ativan) 1 mg 1X ONCE 02/24/17 23:55 02/24/17 23:56 DC 02/25/17 00:15 1 MG Ondansetron HCl (Zofran Odt) 4 mg 1X ONCE 02/24/17 23:55 02/24/17 23:56 DC 02/25/17 00:16 4 MG Allergies Allergies Allergies Coded Allergies Type Severity Reaction Last Updated Verified sulfamethoxazole Adverse Reaction Intermediate GI UPSET 02/13/17 Yes trimethoprim Adverse Reaction Mild GI UPSET 02/13/17 Yes Physical Exam Physical Exam Constitutional: Well developed, well nourished, no acute distress, non-toxic appearance. [] HENT: Normocephalic, atraumatic, bilateral external ears normal, oropharynx moist, no oral exudates, nose normal. [] Eyes: PERRLA, EOMI, conjunctiva normal, no discharge. [] Neck: Normal range of motion, no tenderness, supple, no stridor. [] Cardiovascular:Heart rate regular rhythm, no murmur [] Lungs & Thorax: Bilateral breath sounds clear to auscultation [] Abdomen: See above. Skin: Warm, dry, no erythema, no rash. [] Back: No tenderness, no CVA tenderness. [] Extremities: No tenderness, no cyanosis, no clubbing, ROM intact, no edema. [] Neurologic: Alert and oriented X 3, see above. Psychologic: Affect normal, judgement normal, see above. Current Patient Data Vital Signs Vital Signs Date Time Temp Pulse Resp B/P (MAP) Pulse Ox O2 Delivery O2 Flow Rate FiO2 02/24/17 23:38 98.5 81 20 155/70 (98) 97 Room Air 98.5 EKG EKG [] Radiology/Procedures Radiology/Procedures [] Course & Med Decision Making Course & Med Decision Making Pertinent Labs and Imaging studies reviewed. (See chart for details) [] Dragon Disclaimer Dragon Disclaimer This electronic medical record was generated, in whole or in part, using a voice recognition dictation system. Departure Departure Impression: Primary Impression: Postoperative abdominal pain Additional Impressions: Colon carcinoma metastatic to multiple sites Anxiety Colostomy complication Disposition: 01 HOME, SELF-CARE Condition: IMPROVED Referrals: ZEHRA SMITH (PCP) Patient Instructions: Abdominal Pain (Nonspecific) Problem Qualifiers CHELITA VALVERDE MD February 25, 2017 00:07
[2017-02-25 01:00] VITALS: BP 172/71
== END 2017-02-25 01:30 | disposition home or self-care (01) ==
LOC: ER 23:11
DX: G89.18 Other acute postprocedural pain (principal); R10.84 Generalized abdominal pain; C18.9 Malignant neoplasm of colon, unspecified; C78.6 Secondary malignant neoplasm of retroperitoneum and peritoneum; F41.9 Anxiety disorder, unspecified; K94.09 Other complications of colostomy; R19.7 Diarrhea, unspecified; E03.9 Hypothyroidism, unspecified; I11.9 Hypertensive heart disease without heart failure; Z90.49 Acquired absence of other specified parts of digestive tract; Z90.710 Acquired absence of both cervix and uterus; Z88.2 Allergy status to sulfonamides; Z88.1 Allergy status to other antibiotic agents; Y83.3 Surgical operation with formation of external stoma as the cause of abnormal reaction of the patient, or of later complication, without mention of misadventure at the time of the procedure
CPT/HCPCS: 96372; 99284; J1170; J2060; Q0162

== ENCOUNTER 2017-03-08 13:27 | Emergency (ER) | payer OTHER ==
[~2017-03-08] VITALS: Ht 162.6 cm; Wt 73.5 kg
--- NOTE | 2017-03-08 13:47 | PHYS DOC ---
Past Medical History Past Medical History: Cancer, Hypertension, Hypothyroid Additional Past Medical Histor: thyroid disease, AML "survivor", STAGE 4 COLON CA Past Surgical History: Appendectomy, Cholecystectomy, Hysterectomy, Tonsillectomy Additional Past Surgical Histo: BOWEL RESECTION C COLOSTOMY BAG, FEEDING TUBE Alcohol Use: None Drug Use: None Adult General Chief Complaint Chief Complaint: URINARY RETENTION HPI HPI Patient is a 61 year old female who presents with chest pain and gastric pain. She states been going on for last day her chest sometimes hurts when she exerts herself she states is substernal and doesn't radiate she does not feel short of breath this. She also has some pain that's different and is located her epigastric area. She states that she's been filling dehydrated his he's having decreased urine output. She states her ostomy outputs been about the same recently. She states she's been drinking drinking plenty of liquids but still feels dehydrated. Review of Systems Review of Systems Constitutional: Denies fever or chills [] Eyes: Denies change in visual acuity, redness, or eye pain [] HENT: Denies nasal congestion or sore throat [] Respiratory: Denies cough or shortness of breath [] Cardiovascular: No additional information not addressed in HPI [] GI: Denies abdominal pain, nausea, vomiting, bloody stools or diarrhea [] : Denies dysuria or hematuria [] Musculoskeletal: Denies back pain or joint pain [] Integument: Denies rash or skin lesions [] Neurologic: Denies headache, focal weakness or sensory changes [] Endocrine: Denies polyuria or polydipsia [] Current Medications Current Medications Current Medications Medications (Trade) Dose Ordered Sig/Nneka Start Time Stop Time Status Last Admin Dose Admin Aspirin (Edgardo Aspirin) 325 mg 1X ONCE 03/08/17 15:30 03/08/17 15:31 DC Morphine Sulfate 2 mg PRN Q2HR PRN 03/08/17 15:30 03/09/17 15:29 Ondansetron HCl (Zofran) 4 mg PRN Q8HRS PRN 03/08/17 15:30 03/09/17 15:29 Potassium Chloride (Klor-Con) 40 meq 1X ONCE 03/08/17 15:30 03/08/17 15:31 DC Sodium Chloride 1,000 ml @ 1,000 mls/hr 1X ONCE 03/08/17 15:45 03/08/17 16:44 Allergies Allergies Allergies Coded Allergies Type Severity Reaction Last Updated Verified sulfamethoxazole Adverse Reaction Intermediate GI UPSET 03/01/17 Yes trimethoprim Adverse Reaction Intermediate GI UPSET 03/01/17 Yes Physical Exam Physical Exam Constitutional: Well developed, well nourished, no acute distress, non-toxic appearance. [] HENT: Normocephalic, atraumatic, bilateral external ears normal, oropharynx moist, no oral exudates, nose normal. [] Eyes: PERRLA, EOMI, conjunctiva normal, no discharge. [] Neck: Normal range of motion, no tenderness, supple, no stridor. [] Cardiovascular:Heart rate regular rhythm, no murmur [] Lungs & Thorax: Bilateral breath sounds clear to auscultation [] Abdomen: Bowel sounds normal, soft, no tenderness, no masses, no pulsatile masses, ostomy in the right lower quadrant is being pain and producing, well- healed midline abdominal scars. Skin: Warm, dry, no erythema, no rash. [] Back: No tenderness, no CVA tenderness. [] Extremities: No tenderness, no cyanosis, no clubbing, ROM intact, no edema. [] Neurologic: Alert and oriented X 3, normal motor function, normal sensory function, no focal deficits noted. [] Psychologic: Affect normal, judgement normal, mood normal. [] Current Patient Data Vital Signs Vital Signs Date Time Temp Pulse Resp B/P (MAP) Pulse Ox O2 Delivery O2 Flow Rate FiO2 03/08/17 13:41 98.2 99 18 120/67 (84) 95 Room Air 98.2 Lab Values Laboratory Tests Test 03/08/17 14:20 White Blood Count 10.1 x10^3/uL (4.0-11.0) Red Blood Count 4.16 x10^6/uL (3.50-5.40) Hemoglobin 12.0 g/dL (12.0-15.5) Hematocrit 35.3 % (36.0-47.0) L Mean Corpuscular Volume 85 fL (79-100) Mean Corpuscular Hemoglobin 29 pg (25-35) Mean Corpuscular Hemoglobin Concent 34 g/dL (31-37) Red Cell Distribution Width 18.0 % (11.5-14.5) H Platelet Count 410 x10^3/uL (140-400) H Neutrophils (%) (Auto) 54 % (31-73) Lymphocytes (%) (Auto) 33 % (24-48) Monocytes (%) (Auto) 7 % (0-9) Eosinophils (%) (Auto) 5 % (0-3) H Basophils (%) (Auto) 1 % (0-3) Neutrophils # (Auto) 5.4 x10^3uL (1.8-7.7) Lymphocytes # (Auto) 3.4 x10^3/uL (1.0-4.8) Monocytes # (Auto) 0.7 x10^3/uL (0.0-1.1) Eosinophils # (Auto) 0.5 x10^3/uL (0.0-0.7) Basophils # (Auto) 0.1 x10^3/uL (0.0-0.2) Urine Collection Type Unknown Urine Color Yellow Urine Clarity Clear Urine pH 5.5 Urine Specific [place] 1.015 Urine Protein Negative mg/dL (NEG-TRACE) Urine Glucose (UA) Negative mg/dL (NEG) Urine Ketones (Stick) Negative mg/dL (NEG) Urine Blood Negative (NEG) Urine Nitrite Negative (NEG) Urine Bilirubin Negative (NEG) Urine Urobilinogen Dipstick 0.2 mg/dL (0.2 mg/dL) Urine Leukocyte Esterase Trace (NEG) Urine RBC 0 /HPF (0-2) Urine WBC 1-4 /HPF (0-4) Urine Squamous Epithelial Cells Few /LPF Urine Bacteria Few /HPF (0-FEW) Urine Mucus Slight /LPF Sodium Level 139 mmol/L (136-145) Potassium Level 3.1 mmol/L (3.5-5.1) L Chloride Level 101 mmol/L (98-107) Carbon Dioxide Level 29 mmol/L (21-32) Anion Gap 9 (6-14) Blood Urea Nitrogen 15 mg/dL (7-20) Creatinine 0.9 mg/dL (0.6-1.0) Estimated GFR (Cockcroft-Gault) 64.1 Glucose Level 105 mg/dL (70-99) H Calcium Level 9.0 mg/dL (8.5-10.1) Total Bilirubin 0.5 mg/dL (0.2-1.0) Direct Bilirubin 0.1 mg/dL (0.0-0.2) Aspartate Amino Transferase (AST) 25 U/L (15-37) Alanine Aminotransferase (ALT) 62 U/L (14-59) H Alkaline Phosphatase 74 U/L (46-116) Creatine Kinase 38 U/L (26-192) Creatine Kinase MB (Mass) 0.9 ng/mL (0.0-3.6) Creatine Kinase MB Relative Index % (0-4) Troponin I Quantitative < 0.017 ng/mL (0.000-0.055) Total Protein 6.8 g/dL (6.4-8.2) Albumin 3.3 g/dL (3.4-5.0) L Lipase 147 U/L (73-393) Laboratory Tests 03/08/17 14:20 Laboratory Tests 03/08/17 14:20 EKG EKG EKG shows normal sinus rhythm with a rate of [address] elevations or T-wave inversions, normal axis, QTC 418 ms, as interpreted by me. Radiology/Procedures Radiology/Procedures [facility] [address] [place] [address] IMAGING REPORT Signed PATIENT: CATALINO COBOS ACCOUNT: [id number] : 1955 LOCATION: ER AGE: 61 SEX: F EXAM STATUS: PRE ER ORD. PHYSICIAN: SOMMER HARDING MD REASON: chest pain, HX OF STAGE 4 COLON CANCER, DEHYDRATED PROCEDURE: CHEST AP ONLY Portable chest, 03/08/2017: History: Chest pain, dehydration, colon cancer Comparison is made to a study from 03/01/2017. A right Port-A-Cath remains in place extending into the superior vena cava. The heart size and pulmonary vascularity are normal. There is calcific plaquing of the aorta. No acute infiltrates are seen. There is no evidence of pleural fluid. IMPRESSION: No acute cardiopulmonary abnormality is detected. DICTATED and SIGNED BY: YUMIKO ODELL MD DATE: 03/08/17 4369 CC: ZEHRA SMITH; SOMMER HARDING MD ~ Impressions: Chest pain Hypokalemia Course & Med Decision Making Course & Med Decision Making Pertinent Labs and Imaging studies reviewed. (See chart for details) EKG, labs, chest x-ray nonacute at this time. She's been given aspirin and being admitted to the hospitalist with cardiology consultation. Patient's in stable condition at this time. Interim orders have been written. Currently the patient's pain free. Her potassium has been replaced by mouth. While she was being evaluated by the hospitalist she is not wanting to be admitted even though she had some chest discomfort. I did repeat a troponin given the patient IV fluids and she is being discharged home with cardiology follow-up. Return precautions given she is agreeable plan being discharged in stable condition. I informed the patient and her brother that I wanted her to be admitted that we cannot for sure rule out that she's not having, ischemic heart events, heart attack, or other damage in that she is refusing to stay. She states she understands that this could be her heart however she's not concerned about the symptoms is a very brief and she will follow-up with Dr. Kauffman as an outpatient. Dragon Disclaimer Dragon Disclaimer This electronic medical record was generated, in whole or in part, using a voice recognition dictation system. Departure Departure Impression: Primary Impression: Chest pain Disposition: 01 HOME, SELF-CARE Condition: STABLE Referrals: ZEHRA SMITH (PCP) LUCHO MICHAEL MD Patient Instructions: Chest Pain (Nonspecific) Additional Instructions: Your EKG did not show any acute abnormalities, chest x-ray and labs also did not show any acute abnormalities. Your potassium was slightly low and replace that was oral pills. You were offered admission for your chest discomfort however you did not want to stay. I explained to that without being hospitalized and repeat labs it is hard to determine that this is not her heart is causing her pain and discomfort in that you might be having damage to her heart at this time. You stated you understood the risks of not being hospitalized and you are able to assume these risks yourself. Your being discharged home and will need to follow-up with cardiology. Return ER for worsening chest pain, nausea, abdominal pain or other concerns. SOMMER HARDING MD March 08, 2017 13:47
[2017-03-08 14:33] LABS: BASO # 0.1 x10^3/uL (0.0-0.2); BASO % 1 % (0-3); EOS % 5 % (0-3); HEMATOCRIT 35.3 % (36.0-47.0); LYMPH # 3.4 x10^3/uL (1.0-4.8); LYMPH % 33 % (24-48); MEAN CORPUSCULAR HEMOGLOBIN 29 pg (25-35); MEAN CORPUSCULAR HGB CONC 34 g/dL (31-37); MEAN CORPUSCULAR VOLUME 85 fL (79-100); MONO % 7 % (0-9); NEUT % 54 % (31-73); PLATELET COUNT 410 x10^3/uL (140-400); RED BLOOD COUNT 4.16 x10^6/uL (3.50-5.40); WHITE BLOOD COUNT 10.1 x10^3/uL (4.0-11.0)
[2017-03-08 14:38] LABS: BILIRUBIN,URINE NEGATIVE (NEG); GLUCOSE,URINE NEGATIVE (NEG); NITRITE,URINE NEGATIVE (NEG); PH,URINE 5.5; PROTEIN,URINE NEGATIVE (NEG-TRACE); UROBILINOGEN,URINE 0.2 mg/dL (0.2 mg/dL)
[2017-03-08 14:47] LABS: CREATININE 0.9 mg/dL (0.6-1.0); GFR 64.1; POTASSIUM 3.1 mmol/L (3.5-5.1)
--- NOTE | 2017-03-08 14:49 | RAD ---
Portable chest, 03/08/2017: History: Chest pain, dehydration, colon cancer Comparison is made to a study from 03/01/2017. A right Port-A-Cath remains in place extending into the superior vena cava. The heart size and pulmonary vascularity are normal. There is calcific plaquing of the aorta. No acute infiltrates are seen. There is no evidence of pleural fluid. IMPRESSION: No acute cardiopulmonary abnormality is detected.
[2017-03-08 14:50] LABS: BACTERIA,URINE FEW /HPF (0-FEW); RBC,URINE 0 /HPF (0-2); SQUAMOUS EPITHELIAL CELL,UR FEW /LPF
[2017-03-08 14:51] LABS: ALBUMIN 3.3 g/dL (3.4-5.0); DIRECT BILIRUBIN 0.1 mg/dL (0.0-0.2); TOTAL BILIRUBIN 0.5 mg/dL (0.2-1.0); TOTAL PROTEIN 6.8 g/dL (6.4-8.2)
--- NOTE | 2017-03-08 14:59 | EKG ---
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
[2017-03-08 15:25] LABS: CKMB MASS 0.9 ng/mL (0.0-3.6); CREATINE KINASE 38 U/L (26-192)
[2017-03-08] MEDS ORDERED: MORPHINE SULFATE 2 MG/ML DISP.SYRIN. IV PRN (15:30)
[2017-03-08] MEDS ORDERED: IV NORMAL SALINE 1000ML BAG 1,000 ML IV ONE ×2 (15:30→15:45)
[2017-03-08] MEDS ORDERED: ASPIRIN 325 MG TABLET PO ONE (15:30)
[2017-03-08] MEDS ORDERED: ONDANSETRON PF 4 MG/2 ML VIAL. IV PRN (15:30)
[2017-03-08] MEDS ORDERED: POTASSIUM CHLORIDE 20 MEQ TABLET.ER. PO ONE (15:30)
[2017-03-08 16:48] VITALS: BP 113/56
[2017-03-08 16:54] LABS: CKMB MASS 0.8 ng/mL (0.0-3.6); CREATINE KINASE 37 U/L (26-192)
--- NOTE | 2017-03-09 10:20 | EKG ---
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
--- NOTE | 2017-03-11 07:04 | EKG ---
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
== END 2017-03-08 17:30 | disposition home or self-care (01) ==
LOC: ER 14:50
DX: R07.9 Chest pain, unspecified (principal); E03.9 Hypothyroidism, unspecified; I10 Essential (primary) hypertension; Z90.49 Acquired absence of other specified parts of digestive tract; Z90.710 Acquired absence of both cervix and uterus; Z88.1 Allergy status to other antibiotic agents
CPT/HCPCS: 36415; 71010; 80048; 80076; 81001; 82553; 83690; 84484; 85027; 87086; 93005; 96361; 96374; 96375; 99285; J2270; J2405; J7030

== ENCOUNTER 2017-04-04 17:55 | Emergency (ER) | payer OTHER ==
[~2017-04-04] VITALS: Ht 162.6 cm; Wt 68.0 kg
[~2017-04-04 17:55] MED LIST changes: +DOCU100C28 PO; -DOCU100C5 PO; +ONDA4TAB10 SL; +PANT40TA5 PO
[2017-04-04] MEDS ORDERED: ONDANSETRON PF 4 MG/2 ML VIAL. ONE (19:05)
[2017-04-04] MEDS ORDERED: HYDROmorphone 2 MG/ML VIAL ONE (19:06)
[2017-04-04 19:10] LABS: BASO % 0 % (0-3); EOS % 1 % (0-3); HEMATOCRIT 43.2 % (36.0-47.0); HEMOGLOBIN 14.5 g/dL (12.0-15.5); LYMPH # 4.3 x10^3/uL (1.0-4.8); LYMPH % 30 % (24-48); MEAN CORPUSCULAR HEMOGLOBIN 29 pg (25-35); MEAN CORPUSCULAR HGB CONC 34 g/dL (31-37); MEAN CORPUSCULAR VOLUME 87 fL (79-100); MONO % 11 % (0-9); NEUT % 58 % (31-73); PLATELET COUNT 220 x10^3/uL (140-400); RED BLOOD COUNT 4.95 x10^6/uL (3.50-5.40); RED CELL DISTRIBUTION WIDTH 19.5 % (11.5-14.5); WHITE BLOOD COUNT 14.6 x10^3/uL (4.0-11.0)
--- NOTE | 2017-04-04 19:10 | PHYS DOC ---
Past Medical History Past Medical History: Cancer, Hypertension, Hypothyroid Additional Past Medical Histor: thyroid disease, AML "survivor", STAGE 4 COLON CA Past Surgical History: Appendectomy, Cholecystectomy, Hysterectomy, Tonsillectomy Additional Past Surgical Histo: BOWEL RESECTION C COLOSTOMY BAG, FEEDING TUBE illeostomy Alcohol Use: None Drug Use: None Adult General Chief Complaint Chief Complaint: CHEST PAIN HPI HPI Patient is a 61 year old male who presents with complaints of abdominal pain and malaise with history of colon cancer post colostomy; receiving chemotherapy 1 week ago; 2-3 day history of progressive malaise chills denies fever, complains of generalized weakness dehydration nausea poor by mouth intake received 2 L of IV fluids yesterday as an outpatient. Also complains of moderate poorly localized abdominal pain through to the back; denies vomiting or diarrhea; reports adequate output in the colostomy is not black or bloody; denies chest pain does have some mild shortness of breath but no cough. PCP is Dr.A Richard Chinchilla oncologist is Dr. Rosa Review of Systems Review of Systems Constitutional: Denies fever or chills [] Eyes: Denies change in visual acuity, redness, or eye pain [] HENT: Denies nasal congestion or sore throat [] Respiratory: Denies cough or shortness of breath [] Cardiovascular: No additional information not addressed in HPI [] GI: Denies abdominal pain, nausea, vomiting, bloody stools or diarrhea [] : Denies dysuria or hematuria [] Musculoskeletal: Denies back pain or joint pain [] Integument: Denies rash or skin lesions [] Neurologic: Denies headache, focal weakness or sensory changes [] Endocrine: Denies polyuria or polydipsia All systems negative except as mentioned in history present illness [] Current Medications Current Medications Current Medications Medications (Trade) Dose Ordered Sig/Nneka Start Time Stop Time Status Last Admin Dose Admin Cefepime HCl 1 gm/ Sodium Chloride 50 ml @ 100 mls/hr Q8HRS 04/04/17 21:00 04/04/17 21:08 100 MLS/HR Hydromorphone HCl (Dilaudid) 0.5 mg 1X ONCE 04/04/17 21:30 04/04/17 21:31 DC 04/04/17 21:33 0.5 MG Ondansetron HCl (Zofran) 4 mg STK-MED ONCE 04/04/17 19:05 04/04/17 19:06 DC Sodium Chloride 1,000 ml @ 1,000 mls/hr 1X ONCE 04/04/17 21:00 04/04/17 21:59 DC 04/04/17 21:08 1,000 MLS/HR Allergies Allergies Allergies Coded Allergies Type Severity Reaction Last Updated Verified sulfamethoxazole Adverse Reaction Intermediate GI UPSET 03/01/17 Yes trimethoprim Adverse Reaction Intermediate GI UPSET 03/01/17 Yes Physical Exam Physical Exam Constitutional: Well developed, well nourished, no acute distress, moderately ill-appearing. Orthostatic and hypotensive on arrival but not tachycardic [] HENT: Normocephalic, atraumatic, bilateral external ears normal, oropharynx moist, no oral exudates, nose normal. [] Eyes: PERRLA, EOMI, conjunctiva normal, no discharge. [] Neck: Normal range of motion, no tenderness, supple, no stridor. [] Cardiovascular:Heart rate regular rhythm, no murmur [] Lungs & Thorax: Bilateral breath sounds clear to auscultation [] Abdomen: Bowel sounds normal, soft, mild poorly localized tenderness, no masses , no pulsatile masses. [] Skin: Warm, dry, no erythema, no rash. [] Back: No tenderness, no CVA tenderness. [] Extremities: No tenderness, no cyanosis, no clubbing, ROM intact, no edema. [] Neurologic: Alert and oriented X 3, normal motor function, normal sensory function, no focal deficits noted. [] Psychologic: Affect normal, judgement normal, mood normal. [] Current Patient Data Vital Signs Vital Signs Date Time Temp Pulse Resp B/P (MAP) Pulse Ox O2 Delivery O2 Flow Rate FiO2 04/04/17 21:33 16 Room Air 04/04/17 21:28 68 93/52 (66) 97 04/04/17 18:10 97.8 97.8 Lab Values Laboratory Tests Test 04/04/17 18:25 04/04/17 21:20 White Blood Count 14.6 x10^3/uL (4.0-11.0) H Red Blood Count 4.95 x10^6/uL (3.50-5.40) Hemoglobin 14.5 g/dL (12.0-15.5) Hematocrit 43.2 % (36.0-47.0) Mean Corpuscular Volume 87 fL (79-100) Mean Corpuscular Hemoglobin 29 pg (25-35) Mean Corpuscular Hemoglobin Concent 34 g/dL (31-37) Red Cell Distribution Width 19.5 % (11.5-14.5) H Platelet Count 220 x10^3/uL (140-400) Neutrophils (%) (Auto) 58 % (31-73) Lymphocytes (%) (Auto) 30 % (24-48) Monocytes (%) (Auto) 11 % (0-9) H Eosinophils (%) (Auto) 1 % (0-3) Basophils (%) (Auto) 0 % (0-3) Neutrophils # (Auto) 8.5 x10^3uL (1.8-7.7) H Lymphocytes # (Auto) 4.3 x10^3/uL (1.0-4.8) Monocytes # (Auto) 1.6 x10^3/uL (0.0-1.1) H Eosinophils # (Auto) 0.1 x10^3/uL (0.0-0.7) Basophils # (Auto) 0.0 x10^3/uL (0.0-0.2) Sodium Level 135 mmol/L (136-145) L Potassium Level 3.8 mmol/L (3.5-5.1) Chloride Level 93 mmol/L (98-107) L Carbon Dioxide Level 26 mmol/L (21-32) Anion Gap 16 (6-14) H Blood Urea Nitrogen 29 mg/dL (7-20) H Creatinine 1.7 mg/dL (0.6-1.0) H Estimated GFR (Cockcroft-Gault) 30.8 BUN/Creatinine Ratio 17 (6-20) Glucose Level 118 mg/dL (70-99) H Lactic Acid Level 3.1 mmol/L (0.4-2.0) H Calcium Level 10.7 mg/dL (8.5-10.1) H Total Bilirubin 0.9 mg/dL (0.2-1.0) Aspartate Amino Transferase (AST) 27 U/L (15-37) Alanine Aminotransferase (ALT) 85 U/L (14-59) H Alkaline Phosphatase 235 U/L (46-116) H Troponin I Quantitative 0.017 ng/mL (0.000-0.055) Total Protein 8.1 g/dL (6.4-8.2) Albumin 4.7 g/dL (3.4-5.0) Albumin/Globulin Ratio 1.4 (1.0-1.7) Urine Collection Type U cath Urine Color [place] Urine Clarity Cloudy Urine pH 5.5 Urine Specific [place] 1.020 Urine Protein 100 mg/dL (NEG-TRACE) Urine Glucose (UA) Negative mg/dL (NEG) Urine Ketones (Stick) Trace mg/dL (NEG) Urine Blood Small (NEG) Urine Nitrite Negative (NEG) Urine Bilirubin Small (NEG) Urine Urobilinogen Dipstick 0.2 mg/dL (0.2 mg/dL) Urine Leukocyte Esterase Small (NEG) Urine RBC 3-5 /HPF (0-2) Urine WBC 5-10 /HPF (0-4) Urine Squamous Epithelial Cells Mod /LPF Urine Amorphous Sediment Present /HPF Urine Bacteria Moderate /HPF (0-FEW) Urine Hyaline Casts Many /HPF Urine Mucus Marked /LPF Laboratory Tests 04/04/17 18:25 Laboratory Tests 04/04/17 18:25 EKG EKG EKG [] Radiology/Procedures Radiology/Procedures Chest x-ray negative my review independently interpretation and CT scan abdomen and pelvis [negative per radiology report] Course & Med Decision Making Course & Med Decision Making Pertinent Labs and Imaging studies reviewed. (See chart for details) Patient will be fluid resuscitated with IV fluids multiple labs will be obtained including a blood cultures lactic acid, urine chest x-ray and CT scan abdomen and pelvis. Suspect may be neutropenic given 1 week out from last chemotherapy. Patient's ill appearing. sHe will be admitted. [Patient was given IV fluid resuscitation with improvement of her symptoms she felt much better. CT scan was negative chest x-ray negative white blood cell count was elevated at 14,000 urine was dirty for UTI she was given IV antibiotics lactic acid level was elevated at 3.1. She does meet sepsis criteria. I discussed the risks benefits alternatives with the patient regarding admission and I strongly recommended she be admitted she understands the risk of dying if she goes home. She feels much better and wants to go home. sHe appears] to have decision-making capacity. The friend is in the room and understands the situation. She does follow up with her PCP and/or oncologist tomorrow morning. Dragon Disclaimer Dragon Disclaimer This electronic medical record was generated, in whole or in part, using a voice recognition dictation system. Departure Departure Impression: Primary Impression: Sepsis Additional Impressions: UTI (urinary tract infection) Immunocompromised Colon cancer Dehydration Disposition: HOME, SELF-CARE Condition: IMPROVED Referrals: ZEHRA SMITH (PCP) Patient Instructions: Sepsis, Adult, Urinary Tract Infection, Child Scripts Ondansetron (ZOFRAN ODT) 4 Mg Tab.rapdis 1 TAB SL Q8HRS for NAUSEA, #15 TAB 0 Refills Prov: ISIDRA SALDIVAR MD 04/04/17 Oxycodone/Apap 5-325 (PERCOCET 5-325 MG TABLET) 1 Each Tablet 1-2 TAB PO Q4-6HRS, #12 TAB 0 Refills Prov: ISIDRA SALDIVAR MD 04/04/17 Levofloxacin (LEVAQUIN) 500 Mg Tablet 1 TAB PO DAILY, #7 TAB 0 Refills Prov: ISIDRA SALDIVAR MD 04/04/17 Problem Qualifiers ISIDRA SALDIVAR MD Apr 04, 2017 19:10
[2017-04-04] MEDS ORDERED: IV NORMAL SALINE 1000ML BAG 1,000 ML IV ONE ×2 (19:15→21:00)
[2017-04-04] MEDS ORDERED: ONDANSETRON PF 4 MG/2 ML VIAL. IV ONE (19:15)
[2017-04-04] MEDS ORDERED: HYDROmorphone 2 MG/ML VIAL IV ONE ×2 (19:15→21:30)
[2017-04-04 19:26] LABS: CALCIUM 10.7 mg/dL (8.5-10.1); CREATININE 1.7 mg/dL (0.6-1.0); GFR 30.8; POTASSIUM 3.8 mmol/L (3.5-5.1)
[2017-04-04 19:32] LABS: ALBUMIN 4.7 g/dL (3.4-5.0); ALBUMIN/GLOBULIN RATIO 1.4 (1.0-1.7); TOTAL BILIRUBIN 0.9 mg/dL (0.2-1.0); TOTAL PROTEIN 8.1 g/dL (6.4-8.2)
--- NOTE | 2017-04-04 20:49 | RAD ---
History: Severe sharp abdominal pain today. History of colon cancer and colostomy. Comparison: CT abdomen and pelvis February 09, 2017. Technique: CT of the abdomen and pelvis was performed without intravenous or oral contrast. Exposure: One or more of the following individualized dose reduction techniques were utilized for this examination: 1. Automated exposure control 2. Adjustment of the mA and/or kV according to patient size 3. Use of iterative reconstruction technique Findings: Evaluation of solid organs of the abdomen and pelvis is limited by lack of intravenous contrast. Evaluation of enteric structures may be limited by lack of oral contrast. Liver, spleen, pancreas, and bilateral adrenal glands are unremarkable. Gallbladder is absent. Bilateral kidneys and ureters are free of stone or obstruction. Small punctate parenchymal calcification involves the right inferior renal pole. Aortic atherosclerosis is seen. Urinary bladder is unremarkable. Uterus is absent. Right hemicolectomy changes are seen. There probably is ileocolic anastomosis in the midline of the pelvis. There is a low right lower quadrant ostomy, probably ileostomy. There is no evidence of obstruction or small bowel inflammation. No free air or free fluid is seen in the abdomen or pelvis. Small nodular soft tissue foci are seen in the inferior right paracolic gutter in the upper pelvis, similar to previous study. Impression: 1. No acute abnormality of the abdomen or pelvis. Right lower quadrant ostomy, thought to be ileostomy. 2. Right hemicolectomy changes. 3. Small foci of nodular soft tissue thickening in the right paracolic gutter, unchanged. Electronically signed by: Ciro Charles MD (04/04/2017 8:45 PM)
[2017-04-04] MEDS ORDERED: CEFEPIME HCL 1 GM in IV NORMAL SALINE 50ML 50 ML IV SCH (21:00)
[2017-04-04 21:26] LABS: BILIRUBIN,URINE SMALL (NEG); GLUCOSE,URINE NEGATIVE (NEG); NITRITE,URINE NEGATIVE (NEG); PH,URINE 5.5; PROTEIN,URINE 100 mg/dL (NEG-TRACE); UROBILINOGEN,URINE 0.2 mg/dL (0.2 mg/dL)
[2017-04-04 21:33] LABS: BACTERIA,URINE MODERATE /HPF (0-FEW); SQUAMOUS EPITHELIAL CELL,UR MOD /LPF
[2017-04-04] MEDS ORDERED: ONDA4TAB10 SL (22:48)
[2017-04-04] MEDS ORDERED: LEVO500T59 PO (22:48)
[2017-04-04] MEDS ORDERED: OXYC-323 PO (22:48)
[2017-04-04 23:00] VITALS: BP 120/70
--- NOTE | 2017-04-05 06:12 | EKG ---
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 RI6.01 Unconfirmed report Compared to ECG 03/16/2017 15:08:41 No significant changes Electronically Signed On 04-08-2017 10:39:14 CDT by Francisco J Everett
--- NOTE | 2017-04-05 07:44 | RAD ---
Portable chest, 04/04/2017: History: Fever, colon cancer Comparison is made to a study from 03/17/2017. A right Port-A-Cath extends into the superior vena cava. The heart size and pulmonary vascularity are normal. There is calcific plaquing of the aorta. No pulmonary infiltrates are seen. There is no evidence of pleural fluid. Mild spurring is present in the spine. IMPRESSION: No acute cardiopulmonary abnormality is detected.
== END 2017-04-04 23:07 | disposition home or self-care (01) ==
LOC: ER 17:55
DX: A41.9 Sepsis, unspecified organism (principal); N39.0 Urinary tract infection, site not specified; D89.9 Disorder involving the immune mechanism, unspecified; E86.0 Dehydration; I10 Essential (primary) hypertension; E03.9 Hypothyroidism, unspecified; Z85.038 Personal history of other malignant neoplasm of large intestine; Z90.710 Acquired absence of both cervix and uterus; Z90.49 Acquired absence of other specified parts of digestive tract; Z93.3 Colostomy status; Z88.2 Allergy status to sulfonamides; Z88.8 Allergy status to other drugs, medicaments and biological substances
CPT/HCPCS: 36415; 71010; 74176; 80053; 81001; 83605; 84484; 85027; 87040; 87086; 93005; 96361; 96365; 96375; 96376; 99285; J0692; J1170; J2405; J7030

== ENCOUNTER 2017-04-08 12:56 | Inpatient (IN) | payer OTHER ==
[~2017-04-08] VITALS: Ht 162.6 cm; Wt 73.7 kg
[~2017-04-08 12:56] MED LIST changes: +LEVO500T59 PO; +OXYC-323 PO
[2017-04-08] MEDS ORDERED: 0.9 % SODIUM CHLORIDE 10 ML DISP.SYRIN. IV PRN (13:15)
[2017-04-08] MEDS ORDERED: IV NORMAL SALINE 1000ML BAG 1,000 ML IV SCH (13:30)
[2017-04-08] MEDS ORDERED: ONDANSETRON PF 4 MG/2 ML VIAL. IV ONE (13:30)
--- NOTE | 2017-04-08 13:43 | PHYS DOC ---
Past Medical History Past Medical History: Cancer, Hypertension, Hypothyroid Additional Past Medical Histor: thyroid disease, AML "survivor", STAGE 4 COLON CA Past Surgical History: Appendectomy, Cholecystectomy, Hysterectomy, Tonsillectomy Additional Past Surgical Histo: BOWEL RESECTION W/ ILEOSTOMY Alcohol Use: None Drug Use: None Adult General Chief Complaint Chief Complaint: FLANK PAIN HPI HPI This is a pleasant 61-year-old female who is presently getting chemotherapy every 2 weeks for colon cancer who presents with fevers and chills not documented but flank pain epigastric pain has gotten progressively worse over last 2 weeks. complains of generalized weakness dehydration nausea poor by mouth intake received 2 L of IV fluids 3 weeks ago as an outpatient. Also complains of moderate poorly localized abdominal pain through to the back; denies vomiting or diarrhea; reports adequate output in the colostomy is not black or bloody described as liquidy; denies chest pain does have some mild shortness of breath but no cough. Patient was just seen and admitted to the hospital for possible sepsis secondary to UTI on 04 April. Not felt any better shock she has increased symptoms of lower back pain or flank pain since being treated and seen. PCP is Dr.A Richard Chinchilla oncologist is Dr. Rosa Review of Systems Review of Systems Constitutional: She does complain of subjective fevers and chills Eyes: Denies change in visual acuity, redness, or eye pain [] HENT: Denies nasal congestion or sore throat [] Respiratory: Denies cough or shortness of breath [] Cardiovascular: No additional information not addressed in HPI [] GI: She complains of nausea with abdominal pain vomiting or diarrhea. the loose liquidy stool from the colostomy is noted. : Denies dysuria or hematuria [] Musculoskeletal: Denies back pain or joint pain [] Integument: Denies rash or skin lesions [] Neurologic: Denies headache, focal weakness or sensory changes she feels generally weak with decreased energy.] Endocrine: Denies polyuria or polydipsia [] Current Medications Current Medications Current Medications Medications (Trade) Dose Ordered Sig/Nneka Start Time Stop Time Status Last Admin Dose Admin Hydromorphone HCl (Dilaudid) 1 mg PRN Q15MIN PRN 04/08/17 13:15 04/09/17 13:14 04/08/17 14:49 1 MG Ondansetron HCl (Zofran) 4 mg 1X ONCE 6/19/17 13:30 04/08/17 13:31 DC 04/08/17 13:43 4 MG Sodium Chloride (Normal Saline Flush) 10 ml QSHIFT PRN 04/08/17 13:15 Allergies Allergies Allergies Coded Allergies Type Severity Reaction Last Updated Verified sulfamethoxazole Adverse Reaction Intermediate GI UPSET 03/01/17 Yes trimethoprim Adverse Reaction Intermediate GI UPSET 03/01/17 Yes Physical Exam Physical Exam Constitutional: Well developed, well nourished, dehydrated and cachectic in appearance pale but nontoxic. Patient's vital signs been reviewed mildly hypertensive otherwise normal vital signs. HENT: Normocephalic, atraumatic, bilateral external ears normal, dry mucous membranes no oral exudates, nose normal. [] Eyes: PERRLA, EOMI, conjunctiva normal, no discharge. [] Neck: Normal range of motion, no tenderness, supple, no stridor. [] Cardiovascular: Tachycardia regular rhythm no murmurs cultures. Lungs & Thorax: Bilateral breath sounds clear to auscultation [] Abdomen: She has marked tenderness to palpation over the mid abdomen is midline scar. She has normal bowel sounds with no guarding rebound organomegaly. There is no Castillo's or McBurney's point tenderness to palpation. Skin: Warm, dry, no erythema, no rash. [] Back: No tenderness, no CVA tenderness. [] Extremities: No tenderness, no cyanosis, no clubbing, ROM intact, no edema. [] Neurologic: Alert and oriented X 3, normal motor function, normal sensory function, no focal deficits noted. [] Psychologic: Affect normal, judgement normal, mood normal. [] Current Patient Data Vital Signs Vital Signs Date Time Temp Pulse Resp B/P (MAP) Pulse Ox O2 Delivery O2 Flow Rate FiO2 04/08/17 14:49 18 95 Room Air 04/08/17 13:15 97.6 100 135/81 (99) 97.6 Lab Values Laboratory Tests Test 04/08/17 13:38 04/08/17 14:12 White Blood Count 23.2 x10^3/uL (4.0-11.0) #H Red Blood Count 4.91 x10^6/uL (3.50-5.40) Hemoglobin 14.5 g/dL (12.0-15.5) Hematocrit 43.1 % (36.0-47.0) Mean Corpuscular Volume 88 fL (79-100) Mean Corpuscular Hemoglobin 29 pg (25-35) Mean Corpuscular Hemoglobin Concent 34 g/dL (31-37) Red Cell Distribution Width 20.3 % (11.5-14.5) H Platelet Count 339 x10^3/uL (140-400) Neutrophils (%) (Auto) 78 % (31-73) H Lymphocytes (%) (Auto) 16 % (24-48) L Monocytes (%) (Auto) 5 % (0-9) Eosinophils (%) (Auto) 0 % (0-3) Basophils (%) (Auto) 1 % (0-3) Neutrophils # (Auto) 18.2 x10^3uL (1.8-7.7) H Lymphocytes # (Auto) 3.7 x10^3/uL (1.0-4.8) Monocytes # (Auto) 1.2 x10^3/uL (0.0-1.1) H Eosinophils # (Auto) 0.0 x10^3/uL (0.0-0.7) Basophils # (Auto) 0.2 x10^3/uL (0.0-0.2) Platelet Estimate Pending Sodium Level 129 mmol/L (136-145) L Potassium Level 3.6 mmol/L (3.5-5.1) Chloride Level 88 mmol/L (98-107) L Carbon Dioxide Level 26 mmol/L (21-32) Anion Gap 15 (6-14) H Blood Urea Nitrogen 41 mg/dL (7-20) H Creatinine 3.9 mg/dL (0.6-1.0) H Estimated GFR (Cockcroft-Gault) 11.8 BUN/Creatinine Ratio 11 (6-20) Glucose Level 117 mg/dL (70-99) H Calcium Level 10.1 mg/dL (8.5-10.1) Total Bilirubin 0.4 mg/dL (0.2-1.0) Aspartate Amino Transferase (AST) 22 U/L (15-37) Alanine Aminotransferase (ALT) 48 U/L (14-59) Alkaline Phosphatase 185 U/L (46-116) H Creatine Kinase 24 U/L (26-192) L Creatine Kinase MB (Mass) 0.8 ng/mL (0.0-3.6) Creatine Kinase MB Relative Index % (0-4) Troponin I Quantitative < 0.017 ng/mL (0.000-0.055) Total Protein 8.4 g/dL (6.4-8.2) H Albumin 4.4 g/dL (3.4-5.0) Albumin/Globulin Ratio 1.1 (1.0-1.7) Lipase 133 U/L (73-393) Lactic Acid Level 1.7 mmol/L (0.4-2.0) Laboratory Tests 04/08/17 13:38 Laboratory Tests 04/08/17 13:38 EKG EKG [] Radiology/Procedures Radiology/Procedures [] [facility] [address] [place] [address] IMAGING REPORT Signed PATIENT: CATALINO COBOS ACCOUNT: [id number] : 1955 LOCATION: ER AGE: 61 SEX: F EXAM STATUS: REG ER ORD. PHYSICIAN: ISIDRA SALDIVAR MD REASON: abd pain hx colostomy colon ca PROCEDURE: CT ABDOMEN PELVIS WO CONTRAST History: Severe sharp abdominal pain today. History of colon cancer and colostomy. Comparison: CT abdomen and pelvis February 09, 2017. Technique: CT of the abdomen and pelvis was performed without intravenous or oral contrast. Exposure: One or more of the following individualized dose reduction techniques were utilized for this examination: 1. Automated exposure control 2. Adjustment of the mA and/or kV according to patient size 3. Use of iterative reconstruction technique Findings: Evaluation of solid organs of the abdomen and pelvis is limited by lack of intravenous contrast. Evaluation of enteric structures may be limited by lack of oral contrast. Liver, spleen, pancreas, and bilateral adrenal glands are unremarkable. Gallbladder is absent. Bilateral kidneys and ureters are free of stone or obstruction. Small punctate parenchymal calcification involves the right inferior renal pole. Aortic atherosclerosis is seen. Urinary bladder is unremarkable. Uterus is absent. Right hemicolectomy changes are seen. There probably is ileocolic anastomosis in the midline of the pelvis. There is a low right lower quadrant ostomy, probably ileostomy. There is no evidence of obstruction or small bowel inflammation. No free air or free fluid is seen in the abdomen or pelvis. Small nodular soft tissue foci are seen in the inferior right paracolic gutter in the upper pelvis, similar to previous study. Impression: 1. No acute abnormality of the abdomen or pelvis. Right lower quadrant ostomy, thought to be ileostomy. 2. Right hemicolectomy changes. 3. Small foci of nodular soft tissue thickening in the right paracolic gutter, unchanged. Electronically signed by: Ciro Dumont MD (04/04/2017 8:45 PM) DICTATED and SIGNED BY: CIRO DUMONT MD DATE: 04/04/172037 CC: ZEHRA SMITH; ISIDRA SALDIVAR MD ~ Course & Med Decision Making Course & Med Decision Making Pertinent Labs and Imaging studies reviewed. (See chart for details) for patient 's history and physical is concerning that she has a neutropenic febrile patient SC or cor IV antibiotics given her debility and possible source of infection. At this point I will complete a urinalysis, CMP CBC CT that her pulse with IV contrast EKG and cardiac enzymes to ensure that there is not some sort or sinister problem causing her weakness. [] 2 PM Patient tells me that their symptoms given during CC are improved. I reviewed the labs is clear the patient is a white count of 22,000 with left shift which might be associated with no cancer but the chemotherapy. She is not neutropenic at this time. I concern is with the elevation in her BUN/creatinine which is markedly increased since last time she was seen just 4 days ago. Given her continued flank pain and now inability to actually urinate at all and decided to try to This patient to see if she continues any urine whatsoever. Also the CAT scan of her abdomen and pelvis was changed to without contrast given her increased creatinine. At 2:44 PM patient's urinalysis was not obtained secondary the fact that in the despite in and out catheterization and given a liter of fluids in the ER she still producing urine. At this point she will need to be admitted to the hospital and seen by nephrology as well as her primary care physician for possible renal failure secondary to insensible losses and really tolerate by mouth food and fluids. At this point in time 2:45 PM patient's been moved to the CAT scanner for a CAT scan. Kiln Hand note: Total medicine hospitalist vocational nurse lvn t2:47 PM Kiln Hand called at of the service Dr. Rodriguez Consult called back at 252 Discussed the case I presented and they agreed with admission. Time of acceptance 252 Asked me to admit patient to his service and consult the appropriate counseling services to good nephrology and possibly infectious disease. Impression: Abdominal pain unclear etiology, acute on chronic renal failure, leukocytosis, nausea and vomiting, dehydration. Disposition: Admission to the hospital for IV fluid therapy and specialty consultation. Dragon Disclaimer Dragon Disclaimer This electronic medical record was generated, in whole or in part, using a voice recognition dictation system. Departure Departure Impression: Primary Impression: Colon cancer Additional Impressions: Leukocytosis Abdominal pain Acute renal failure Admitting Physician: Robb Rodriguez Referrals: ZEHRA SMITH (PCP) Problem Qualifiers HO SORIANO MD Apr 08, 2017 13:43
[2017-04-08] MEDS: HYDROmorphone 2 MG/ML VIAL IV/SQ PRN ×4 (13:44→15:16)
[2017-04-08 13:57] LABS: BASO # 0.2 x10^3/uL (0.0-0.2); BASO % 1 % (0-3); EOS % 0 % (0-3); HEMATOCRIT 43.1 % (36.0-47.0); HEMOGLOBIN 14.5 g/dL (12.0-15.5); LYMPH # 3.7 x10^3/uL (1.0-4.8); LYMPH % 16 % (24-48); MEAN CORPUSCULAR HEMOGLOBIN 29 pg (25-35); MEAN CORPUSCULAR HGB CONC 34 g/dL (31-37); MEAN CORPUSCULAR VOLUME 88 fL (79-100); MONO % 5 % (0-9); NEUT % 78 % (31-73); PLATELET COUNT 339 x10^3/uL (140-400); RED BLOOD COUNT 4.91 x10^6/uL (3.50-5.40); RED CELL DISTRIBUTION WIDTH 20.3 % (11.5-14.5); WHITE BLOOD COUNT 23.2 x10^3/uL (4.0-11.0)
--- NOTE | 2017-04-08 14:09 | EKG ---
[facility] [address] [place] [address] Test Date: 2017-04-08 Test Time: 13:27:52 Pat Name: CATALINO COBOS Department: Room: Gender: F Family Living Educator: : 1955 Requested By: HO SORIANO Order Number: [id number] Reading MD: Francisco J Everett Measurements Intervals [place] Rate: 101 P: 64 MS: 138 QRS: 37 QRSD: 86 T: 48 QT: 360 QTc: 468 Interpretive Statements SINUS TACHYCARDIA NONSPECIFIC ST-T WAVE CHANGES. RI6.01 Compared to ECG 04/04/2017 18:04:35 Sinus rhythm no longer present ST (T wave) deviation no longer present Electronically Signed On 04-10-2017 11:15:15 CDT by Francisco J Everett
[2017-04-08 14:12] LABS: CALCIUM 10.1 mg/dL (8.5-10.1); CREATININE 3.9 mg/dL (0.6-1.0); GFR 11.8; POTASSIUM 3.6 mmol/L (3.5-5.1)
[2017-04-08 14:19] LABS: ALBUMIN 4.4 g/dL (3.4-5.0); ALBUMIN/GLOBULIN RATIO 1.1 (1.0-1.7); TOTAL BILIRUBIN 0.4 mg/dL (0.2-1.0); TOTAL PROTEIN 8.4 g/dL (6.4-8.2)
[2017-04-08 14:26] LABS: CKMB MASS 0.8 ng/mL (0.0-3.6)
[2017-04-08 14:27] LABS: CREATINE KINASE 24 U/L (26-192)
--- NOTE | 2017-04-08 15:05 | RAD ---
Examination: CT of the abdomen pelvis without contrast History: History of diffuse flank pain. Comparison: 04/04/2017 Technique: Axial CT images of the abdomen pelvis were performed without contrast. Coronal and sagittal reformats performed PQRS Compliance Statement: One or more of the following individualized dose reduction techniques were utilized for this examination: 1. Automated exposure control 2. Adjustment of the mA and/or kV according to patient size 3. Use of iterative reconstruction technique. Findings: The visualized bibasal lungs grossly appears unremarkable. No evidence of free air identified in the abdomen. The evaluation of the solid organs is limited due to lack of IV contrast. The evaluation of the bowel is limited due to lack of oral contrast. There is hypodensity identified in the left lobe of the liver likely focal fat similar to prior exam. The visualized spleen, adrenals grossly appears unremarkable. Cholecystectomy clips are identified. The stomach is mildly distended. The visualized pancreas grossly appears unremarkable. The small bowel is nondilated. Changes of hemicolectomy identified. Right lower quadrant ostomy likely ileostomy. There is mild stranding identified at the site of anastomosis in the right mid abdomen. Mild fat stranding identified in the pelvis about the sigmoid colon distally. Urinary bladder is mildly distended. Moderate aortic atherosclerosis Punctate 1 mm calculus identified in the right kidney. No evidence of hydronephrosis. Mild degenerative changes lumbar spine. Impression: 1. Mild fat stranding identified in the pelvis about the distal sigmoid colon region, nonspecific similar to prior exam , minimal colitis or diverticulitis is a possibility, however an inflamed diverticula is not clearly identified. 2. Faint fat stranding identified about the anastomosis of hemicolectomy similar to prior exam, nonspecific. Small foci of nodular soft tissue thickening in the right paracolic gutter unchanged. 3. Cholecystectomy changes. 4. Punctate 1 mm intrarenal collecting system calculus identified in the right kidney.
[2017-04-08] MEDS ORDERED: ACETAMINOPHEN 325 MG TABLET. PO PRN (15:15)
[2017-04-08] MEDS ORDERED: ONDANSETRON PF 4 MG/2 ML VIAL. IV PRN (15:15)
--- NOTE | 2017-04-08 15:28 | ACF ---
Admission Forms Criteria ABDOMINAL PAIN Clinical Indications for Admission to Inpatient Care (Place 'X' for any and all applicable criteria): Admission is indicated for ANY ONE of the following(1)(2)(3)(4)(5): [X]I. Inpatient admission required rather than observation care (Also use Abdominal Pain: Observation Care, as appropriate) because of ANY ONE of the following: [X]a) Severe pain requiring acute inpatient management [ ]b) Identification of etiology/finding that requires inpatient care (eg, aortic dissection, free air) [ ]c) Absent bowel sounds with complete ileus(6) [ ]d) Suspected toxic megacolon [ ]e) Severe electrolyte abnormalities requiring inpatient care [ ]f) High fever or infection requiring inpatient admission as indicated by ANY ONE of following(7)(8): [ ] i) Appropriate outpatient or observational care antimicrobial treatment unavailable, not effective, or not feasible [ ] ii) Documented bacteremia [ ] iii) Temperature > 104.9 degrees F (oral) [ ] iv) T >103.1 F (oral) or < 96.8 F(rectal) that does not respond to all emergency treatment measures [ ]g) Signs of intestinal obstruction [B] [ ]h) Hemodynamic instability [ ]i) IV fluid to replace significant ongoing losses (greater than 3 L/m2 per day) (12)(13) [ ]j) Percutaneous or open drainage (eg, abscess, biliary tract ) procedures [ ]k) Parenteral nutrition regimen that must be implemented on inpatient basis [ ]l) Other condition,treatment or monitoring requiring inpatient admission. [ ]II. Peritoneal signs present [ ]III. Surgery needed that cannot be performed on an ambulatory basis. [ ]IV. Evaluation requires patient to not eat or drink for extended period ( eg, more than 24 hours). [ ]V. Contraindications and/or Inappropriate clinical situations for Observational Care in patients with abdominal pain, when ANY ONE of the following is required: [ ]a) Thorough evaluation is required to prevent catastrophic events due to delays in diagnosing (e.g.Mesenteric ischemia) 1,3 [ ]b) Patient with severe pathology or with chronic symptoms unlikely to improve in the ED stay (3) [ ]. General contraindications and/or Inappropriate clinical situations for Observational Care in patients with abdominal pain, when ANY ONE of the following is required: [ ]a) Prediction of prolongation of LOS based on ANY ONE of the following may be considered as a contraindication for observational care 2, 3, 4, 5, 6, 7, 8, 9, 10, 11 [ ]i) Age > 65 yrs. [ ]ii) Patient arriving by ambulance [ ]iii) Patient with high acuity [ ]iv) Patient requiring vital sign monitoring [ ]v) Patient on IV medication [ ]b) Systolic blood pressures 180mmHg 3,12 [ ]c) Patient with altered mental status including delirium and other alteration of consciousness, (3) [ ]d) Patient whose discharge disposition will be to a correction home or rehabilitation home should not be managed in Emergency Department Observation Unit. CMS rule requires 3 days hospital stay before such placement.3,13 [ ]e) Patient with failure to thrive due to broad array of etiologies 3,16,17 [ ]f) Inability to ambulate 3,14 Extended stay beyond goal length of stay may be needed for(2)(3): [ ]a) Persistent abdominal pain with suspected intra-abdominal process [ ]b) Diagnosed condition requiring continued stay (e.g., pancreatitis, complicated diverticulitis) [ ]c) Surgery (e.g., colectomy) The original [employer] content created by [employer] has been revised. The portions of the content which have been revised are identified through the use of italic text or in bold, and [facility] has neither reviewed nor approved the modified material.All other unmodified content is copyright [employer]. Please see references footnoted in the original [employer] edition 2016 Admission Criteria Met?: Yes MELBA MCDERMOTT Apr 08, 2017 15:28
[2017-04-08 15:51] LABS: ANISOCYTOSIS MOD; PLT ESTIMATE ADEQUATE (ADEQUATE)
[2017-04-08 17:03] VITALS: BP 129/83
[2017-04-08 17:05] VITALS: BP 129/83
[2017-04-08] MEDS: fentaNYL PF VIAL 100 MCG/2 ML VIAL IV PRN ×2 (18:40→21:48)
[2017-04-08 19:00] VITALS: BP 109/81
[2017-04-08] MEDS ORDERED: oxyCODONE/APAP 7.5/325 1 TAB TABLET PO PRN (19:45)
[2017-04-08] MEDS ORDERED: DOCUSATE SODIUM 100 MG CAPSULE. PO PRN (19:45)
[2017-04-08] MEDS: PROCHLORPERAZINE 5 MG TABLET. PO SCH (21:35)
[2017-04-08] MEDS: ZOLPIDEM 5 MG TABLET. PO SCH (21:35)
[2017-04-08] MEDS: ONDANSETRON ODT 4 MG TAB.RAPDIS. PO SCH (21:35)
[2017-04-08] MEDS: AMINO AC 3%/ELECTROLYTE/GLYCER 1,000 ML IV SCH (21:37)
[2017-04-08 23:05] VITALS: BP 135/69
--- NOTE | 2017-04-09 01:33 | HP ---
ADMIT DATE: 04/08/2017 CHIEF COMPLAINT: Abdominal pain. HISTORY OF PRESENT ILLNESS: The patient is a pleasant 61-year-old female well known to my service. 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 It is colon cancer spreading. She actually underwent surgery a couple of months ago and had an ostomy placement. Her prognosis is terminal. She has been undergoing some chemotherapy. She now wants to sign up for hospice. Basically she was in the ER with flank pain. Her creatinine is quite high at 3.9. I am concerned she probably has metastatic disease that is encroaching on her ureters. We are going to admit the patient and consult her Oncologist. PAST MEDICAL HISTORY: The above-mentioned colon cancer, previous leukemia, hypertension, hypothyroidism, appendectomy, cholecystectomy, hysterectomy, tonsillectomy, bowel resection and ileostomy. ALLERGIES: SULFA AND TRIMETHOPRIM. FAMILY HISTORY: Diabetes. SOCIAL HISTORY: She does not drink, smoke or take drugs. 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 MEDICATIONS: Reviewed, please refer to the MRAD. REVIEW OF SYSTEMS: GENERAL: She complains of weakness and weight loss, 33 pounds. SKIN: No bruising, hair changes or rashes. EYES: No blurred, double or loss of vision. NOSE AND THROAT: No history of nosebleeds, hoarseness or sore throat. HEART: No history of palpitations, chest pain or shortness of breath on exertion. LUNGS: Denies cough, hemoptysis, wheezing or shortness of breath. GASTROINTESTINAL: She complains of abdominal pain. GENITOURINARY: No history of frequency, urgency, hesitancy or nocturia. NEUROLOGIC: Denies history of numbness, tingling, tremor or weakness. PSYCHIATRIC: No history of panic, anxiety or depression. ENDOCRINE: No history of heat or cold intolerance, polyuria or polydipsia. EXTREMITIES: Denies muscle weakness, joint pain, pain on walking or stiffness. PHYSICAL EXAMINATION: VITAL SIGNS: Temperature afebrile, pulse 60, respirations 20, blood pressure 109/81, O2 sat 99%. GENERAL: She is alert, cooperative. Her daughter is present. HEART: Normal S1, S2. LUNGS: Clear. ABDOMEN: Soft. Decreased bowel sounds, tender. EXTREMITIES: Trace edema. SKIN: No rashes. PSYCHIATRIC: She is depressed. VASCULAR: Good capillary refill. ENDOCRINE: No thyromegaly. LYMPHATICS: No cervical nodes. HEMATOPOIETIC: No bruising. LABORATORY DATA: White count 23, hemoglobin 14, platelets 339. Electrolytes: Sodium 129, potassium 3.6, chloride 88, bicarbonate 26, BUN 41, creatinine 3.9, glucose 117, troponin is 0. Alkaline phosphatase ____, total protein 8.4. CPK 24. CT of the abdomen showed mild fat stranding identified in the pelvis about the distal sigmoid colon with minimal colitis or diverticulitis. ASSESSMENT AND PLAN: Abdominal pain with acute on chronic renal failure, stage 4 colon cancer with mets, abnormal CAT scan, leukocytosis, hyponatremia, azotemia. The patient has been admitted. We will consult Oncology and Nephrology. IV procalamine at 75 an hour, frequent labs. The patient is requesting to have a hospice evaluation and ____. I gave her at least 5 choices including [facility], [facility], [facility], [facility] and [facility]. Prognosis is probably terminal, but I suspect she has a few months to live. VANIA HUTSON DO DR: GABI/saad JOB#: [id number] / [id number]
[2017-04-09 03:05] VITALS: BP 128/61
[2017-04-09] MEDS: ONDANSETRON ODT 4 MG TAB.RAPDIS. PO SCH ×3 (06:00→20:58)
[2017-04-09] MEDS: fentaNYL PF VIAL 100 MCG/2 ML VIAL IV PRN ×4 (06:30→19:50)
[2017-04-09 07:00] VITALS: BP 128/63
[2017-04-09] MEDS: LEVOTHYROXINE 50 MCG TABLET PO SCH (07:31)
[2017-04-09] MEDS: PANTOPRAZOLE 40 MG TABLET.DR. PO SCH ×2 (07:31→16:19)
[2017-04-09] MEDS: AMINO AC 3%/ELECTROLYTE/GLYCER 1,000 ML IV SCH ×2 (08:50→20:56)
[2017-04-09] MEDS: PROCHLORPERAZINE 5 MG TABLET. PO SCH ×3 (08:56→20:53)
--- NOTE | 2017-04-09 10:58 | PDOC ---
PROGRESS NOTES Chief Complaint Chief Complaint ARF Depression colon cancer with carcinomatosis, previous leukemia, hypertension, hypothyroidism, appendectomy, cholecystectomy, hysterectomy, tonsillectomy, bowel resection and ileostomy. History of Present Illness History of Present Illness Pt seen and examined VSS Depressed Nauseated Vitals Vitals Vital Signs Date Time Temp Pulse Resp B/P (MAP) Pulse Ox O2 Delivery O2 Flow Rate FiO2 04/09/17 10:47 Room Air 04/09/17 07:32 1.0 04/09/17 07:00 97.7 63 18 128/63 (84) 97.7 04/09/17 06:30 96 Physical Exam General: Alert, Oriented X3, Cooperative Heart: Regular rate, Normal S1, Normal S2 Lungs: Clear, Other Abdomen: Normal bowel sounds, Other (tender) Extremities: No clubbing, No cyanosis Skin: No rashes, No breakdown Labs LABS Laboratory Tests Test 04/08/17 13:38 04/08/17 14:12 White Blood Count 23.2 x10^3/uL (4.0-11.0) Red Blood Count 4.91 x10^6/uL (3.50-5.40) Hemoglobin 14.5 g/dL (12.0-15.5) Hematocrit 43.1 % (36.0-47.0) Mean Corpuscular Volume 88 fL (79-100) Mean Corpuscular Hemoglobin 29 pg (25-35) Mean Corpuscular Hemoglobin Concent 34 g/dL (31-37) Red Cell Distribution Width 20.3 % (11.5-14.5) Platelet Count 339 x10^3/uL (140-400) Neutrophils (%) (Auto) 78 % (31-73) Lymphocytes (%) (Auto) 16 % (24-48) Monocytes (%) (Auto) 5 % (0-9) Eosinophils (%) (Auto) 0 % (0-3) Basophils (%) (Auto) 1 % (0-3) Neutrophils # (Auto) 18.2 x10^3uL (1.8-7.7) Lymphocytes # (Auto) 3.7 x10^3/uL (1.0-4.8) Monocytes # (Auto) 1.2 x10^3/uL (0.0-1.1) Eosinophils # (Auto) 0.0 x10^3/uL (0.0-0.7) Basophils # (Auto) 0.2 x10^3/uL (0.0-0.2) Segmented Neutrophils % 70 % (35-66) Band Neutrophils % 4 % (0-9) Lymphocytes % 16 % (24-48) Monocytes % 6 % (0-10) Metamyelocytes % 4 % (0-0) Platelet Estimate Adequate (ADEQUATE) Anisocytosis Mod Macrocytosis Slight Sodium Level 129 mmol/L (136-145) Potassium Level 3.6 mmol/L (3.5-5.1) Chloride Level 88 mmol/L (98-107) Carbon Dioxide Level 26 mmol/L (21-32) Anion Gap 15 (6-14) Blood Urea Nitrogen 41 mg/dL (7-20) Creatinine 3.9 mg/dL (0.6-1.0) Estimated GFR (Cockcroft-Gault) 11.8 BUN/Creatinine Ratio 11 (6-20) Glucose Level 117 mg/dL (70-99) Calcium Level 10.1 mg/dL (8.5-10.1) Total Bilirubin 0.4 mg/dL (0.2-1.0) Aspartate Amino Transf (AST/SGOT) 22 U/L (15-37) Alanine Aminotransferase (ALT/SGPT) 48 U/L (14-59) Alkaline Phosphatase 185 U/L (46-116) Creatine Kinase 24 U/L (26-192) Creatine Kinase MB (Mass) 0.8 ng/mL (0.0-3.6) Creatine Kinase MB Relative Index % (0-4) Troponin I Quantitative < 0.017 ng/mL (0.000-0.055) Total Protein 8.4 g/dL (6.4-8.2) Albumin 4.4 g/dL (3.4-5.0) Albumin/Globulin Ratio 1.1 (1.0-1.7) Lipase 133 U/L (73-393) Lactic Acid Level 1.7 mmol/L (0.4-2.0) Review of Systems Review of Systems co nausea and pain Assessment and Plan Assessmemt and Plan Problems Medical Problems: (1) Abdominal pain Status: Acute (2) Acute renal failure Status: Acute (3) Colon cancer Status: Acute (4) Leukocytosis Status: Acute ARF Depression colon cancer with carcinomatosis, previous leukemia, hypertension, hypothyroidism, appendectomy, cholecystectomy, hysterectomy, tonsillectomy, bowel resection and ileostomy. Plan PRN narcotics and Antiemetics IV PPN Labs Hospice eval today at 1:00 Prog guarded Problems: Comment Review of Relevant I have reviewed the following items siena (where applicable) has been applied. Labs Laboratory Tests Test 04/08/17 13:38 04/08/17 14:12 White Blood Count 23.2 x10^3/uL (4.0-11.0) Red Blood Count 4.91 x10^6/uL (3.50-5.40) Hemoglobin 14.5 g/dL (12.0-15.5) Hematocrit 43.1 % (36.0-47.0) Mean Corpuscular Volume 88 fL (79-100) Mean Corpuscular Hemoglobin 29 pg (25-35) Mean Corpuscular Hemoglobin Concent 34 g/dL (31-37) Red Cell Distribution Width 20.3 % (11.5-14.5) Platelet Count 339 x10^3/uL (140-400) Neutrophils (%) (Auto) 78 % (31-73) Lymphocytes (%) (Auto) 16 % (24-48) Monocytes (%) (Auto) 5 % (0-9) Eosinophils (%) (Auto) 0 % (0-3) Basophils (%) (Auto) 1 % (0-3) Neutrophils # (Auto) 18.2 x10^3uL (1.8-7.7) Lymphocytes # (Auto) 3.7 x10^3/uL (1.0-4.8) Monocytes # (Auto) 1.2 x10^3/uL (0.0-1.1) Eosinophils # (Auto) 0.0 x10^3/uL (0.0-0.7) Basophils # (Auto) 0.2 x10^3/uL (0.0-0.2) Segmented Neutrophils % 70 % (35-66) Band Neutrophils % 4 % (0-9) Lymphocytes % 16 % (24-48) Monocytes % 6 % (0-10) Metamyelocytes % 4 % (0-0) Platelet Estimate Adequate (ADEQUATE) Anisocytosis Mod Macrocytosis Slight Sodium Level 129 mmol/L (136-145) Potassium Level 3.6 mmol/L (3.5-5.1) Chloride Level 88 mmol/L (98-107) Carbon Dioxide Level 26 mmol/L (21-32) Anion Gap 15 (6-14) Blood Urea Nitrogen 41 mg/dL (7-20) Creatinine 3.9 mg/dL (0.6-1.0) Estimated GFR (Cockcroft-Gault) 11.8 BUN/Creatinine Ratio 11 (6-20) Glucose Level 117 mg/dL (70-99) Calcium Level 10.1 mg/dL (8.5-10.1) Total Bilirubin 0.4 mg/dL (0.2-1.0) Aspartate Amino Transf (AST/SGOT) 22 U/L (15-37) Alanine Aminotransferase (ALT/SGPT) 48 U/L (14-59) Alkaline Phosphatase 185 U/L (46-116) Creatine Kinase 24 U/L (26-192) Creatine Kinase MB (Mass) 0.8 ng/mL (0.0-3.6) Creatine Kinase MB Relative Index % (0-4) Troponin I Quantitative < 0.017 ng/mL (0.000-0.055) Total Protein 8.4 g/dL (6.4-8.2) Albumin 4.4 g/dL (3.4-5.0) Albumin/Globulin Ratio 1.1 (1.0-1.7) Lipase 133 U/L (73-393) Lactic Acid Level 1.7 mmol/L (0.4-2.0) Laboratory Tests Test 04/08/17 13:38 04/08/17 14:12 White Blood Count 23.2 x10^3/uL (4.0-11.0) Red Blood Count 4.91 x10^6/uL (3.50-5.40) Hemoglobin 14.5 g/dL (12.0-15.5) Hematocrit 43.1 % (36.0-47.0) Mean Corpuscular Volume 88 fL (79-100) Mean Corpuscular Hemoglobin 29 pg (25-35) Mean Corpuscular Hemoglobin Concent 34 g/dL (31-37) Red Cell Distribution Width 20.3 % (11.5-14.5) Platelet Count 339 x10^3/uL (140-400) Neutrophils (%) (Auto) 78 % (31-73) Lymphocytes (%) (Auto) 16 % (24-48) Monocytes (%) (Auto) 5 % (0-9) Eosinophils (%) (Auto) 0 % (0-3) Basophils (%) (Auto) 1 % (0-3) Neutrophils # (Auto) 18.2 x10^3uL (1.8-7.7) Lymphocytes # (Auto) 3.7 x10^3/uL (1.0-4.8) Monocytes # (Auto) 1.2 x10^3/uL (0.0-1.1) Eosinophils # (Auto) 0.0 x10^3/uL (0.0-0.7) Basophils # (Auto) 0.2 x10^3/uL (0.0-0.2) Segmented Neutrophils % 70 % (35-66) Band Neutrophils % 4 % (0-9) Lymphocytes % 16 % (24-48) Monocytes % 6 % (0-10) Metamyelocytes % 4 % (0-0) Platelet Estimate Adequate (ADEQUATE) Anisocytosis Mod Macrocytosis Slight Sodium Level 129 mmol/L (136-145) Potassium Level 3.6 mmol/L (3.5-5.1) Chloride Level 88 mmol/L (98-107) Carbon Dioxide Level 26 mmol/L (21-32) Anion Gap 15 (6-14) Blood Urea Nitrogen 41 mg/dL (7-20) Creatinine 3.9 mg/dL (0.6-1.0) Estimated GFR (Cockcroft-Gault) 11.8 BUN/Creatinine Ratio 11 (6-20) Glucose Level 117 mg/dL (70-99) Calcium Level 10.1 mg/dL (8.5-10.1) Total Bilirubin 0.4 mg/dL (0.2-1.0) Aspartate Amino Transf (AST/SGOT) 22 U/L (15-37) Alanine Aminotransferase (ALT/SGPT) 48 U/L (14-59) Alkaline Phosphatase 185 U/L (46-116) Creatine Kinase 24 U/L (26-192) Creatine Kinase MB (Mass) 0.8 ng/mL (0.0-3.6) Creatine Kinase MB Relative Index % (0-4) Troponin I Quantitative < 0.017 ng/mL (0.000-0.055) Total Protein 8.4 g/dL (6.4-8.2) Albumin 4.4 g/dL (3.4-5.0) Albumin/Globulin Ratio 1.1 (1.0-1.7) Lipase 133 U/L (73-393) Lactic Acid Level 1.7 mmol/L (0.4-2.0) Medications Current Medications Hydromorphone HCl (Dilaudid) 1 mg PRN Q15MIN PRN IV/SQ PAIN GREATER THAN 3/10 Last administered on 04/08/17 15:16; Start 04/08/17 at 13:15; Stop 04/09/17 at 13:14 Sodium Chloride 1,000 ml @ 1,000 mls/hr Q1H IV Last administered on 04/08/17 13:43; Start 04/08/17 at 13:30; Stop 04/08/17 at 14:29; Status DC Sodium Chloride (Normal Saline Flush) 10 ml QSHIFT PRN IV AFTER MEDS AND BLOOD DRAWS; Start 04/08/17 at 13:15 Ondansetron HCl (Zofran) 4 mg 1X ONCE IV Last administered on 04/08/17 13:43 ; Start 04/08/17 at 13:30; Stop 04/08/17 at 13:31; Status DC Ondansetron HCl (Zofran) 4 mg PRN Q8HRS PRN IV NAUSEA/VOMITING Last administered on 04/09/17 06:30; Start 04/08/17 at 15:15; Stop 04/09/17 at 15:14 Fentanyl Citrate (Fentanyl 2ml Vial) 50 mcg PRN Q2HR PRN IV PAIN Last administered on 04/09/17 10:47; Start 04/08/17 at 15:15; Stop 04/09/17 at 15:14 Acetaminophen (Tylenol) 650 mg PRN Q4HRS PRN PO FEVER; Start 04/08/17 at 15:15 ; Stop 04/09/17 at 15:14 Amino Acids/ Glycerin/ Electrolytes 1,000 ml @ 75 mls/hr [id number] IV Last administered on 04/09/17 08:50; Start 04/08/17 at 19:30 Alprazolam (Xanax) 0.5 mg PRN Q8HRS PRN PO ANXIETY / AGITATION; Start 04/08/17 at 19:45 Docusate Sodium (Colace) 100 mg PRN DAILY PRN PO CONSTIPATION; Start 04/08/17 at 19:45 Levothyroxine Sodium (Synthroid) 50 mcg DAILY07 PO Last administered on 07:31; Start 04/09/17 at 07:00 Ondansetron HCl (Zofran Odt) 4 mg Q8HRS PO Last administered on 04/08/17 21:35 ; Start 04/08/17 at 22:00 Oxycodone/ Acetaminophen (Percocet 7.5/ 325) 1 tab PRN Q4HRS PRN PO MODERATE PAIN; Start 04/08/17 at 19:45 Pantoprazole Sodium (Protonix) 40 mg BIDBFRMEAL PO Last administered on 07:31; Start 04/09/17 at 07:30 Zolpidem Tartrate (Ambien) 5 mg QHS PO Last administered on 04/08/17 21:35; Start 04/08/17 at 21:00 Prochlorperazine Maleate (Compazine) 10 mg TID PO Last administered on 08:56; Start 04/08/17 at 21:00 Active Scripts Active Zofran Odt (Ondansetron) 4 Mg Tab.rapdis 1 Tab SL Q8HRS Percocet 5-325 Mg Tablet (Oxycodone/Acetaminophen) 1 Each Tablet 1-2 Tab PO Q4- 6HRS Levaquin (Levofloxacin) 500 Mg Tablet 1 Tab PO DAILY Zofran Odt (Ondansetron) 4 Mg Tab.rapdis 1 Tab SL Q8HRS Pantoprazole Sodium 40 Mg Tablet.dr 40 Mg PO BIDBFRMEAL 60 Days Alprazolam 0.5 Mg Tablet 0.5 Mg PO PRN Q8HRS PRN Compazine (Prochlorperazine Maleate) 10 Mg Tablet 10 Mg PO Q8HRS Docusate Sodium 100 Mg Capsule 100 Mg PO PRN DAILY PRN Oxycodon-Acetaminophen 7.5-325 (Oxycodone Hcl/Acetaminophen) 1 Each Tablet 1 Tab PO PRN Q4HRS PRN Reported Ambien (Zolpidem Tartrate) 5 Mg Tablet 1 Tab PO QHS Levothyroxine Sodium 50 Mcg Tablet 1 Tab PO DAILY Vitals/I & O Vital Sign - Last 24 Hours 04/08/17 04/08/17 04/08/17 04/08/17 13:15 13:44 13:45 14:08 Temp 97.6 97.6 Pulse 100 96 Resp 20 20 18 18 B/P (MAP) 135/81 (99) 121/70 (87) Pulse Ox 96 95 96 95 O2 Delivery Room Air Room Air Room Air Room Air 04/08/17 04/08/17 04/08/17 04/08/17 14:15 14:45 14:49 15:15 Pulse 80 64 70 Resp 18 18 18 18 B/P (MAP) 123/59 (80) 138/62 (87) 123/58 (79) Pulse Ox 95 95 95 95 O2 Delivery Room Air Room Air Room Air Room Air 04/08/17 04/08/17 04/08/17 04/08/17 15:16 16:46 16:46 17:03 Temp 97.5 97.5 Pulse 98 Resp 18 15 B/P (MAP) 129/83 (98) Pulse Ox 95 97 O2 Delivery Room Air Nasal Cannula Nasal Cannula Nasal Cannula O2 Flow Rate 2.0 2.0 04/08/17 04/08/17 04/08/17 04/08/17 17:05 18:40 19:00 20:00 Temp 97.5 97.5 97.5 97.5 Pulse 98 67 Resp 15 18 B/P (MAP) 129/83 (98) 109/81 (90) Pulse Ox 97 99 O2 Delivery Nasal Cannula Nasal Cannula Nasal Cannula Nasal Cannula O2 Flow Rate 2.0 2.0 2.0 04/08/17 04/08/17 04/08/17 04/09/17 21:48 22:18 23:05 03:05 Temp 97.4 97.5 97.4 97.5 Pulse 68 66 Resp 18 18 18 18 B/P (MAP) 135/69 (91) 128/61 (83) Pulse Ox 96 96 100 99 O2 Delivery Nasal Cannula Nasal Cannula Nasal Cannula O2 Flow Rate 2.0 2.0 04/09/17 04/09/17 04/09/17 04/09/17 06:30 07:00 07:30 07:32 Temp 97.7 97.7 Pulse 63 Resp 20 18 B/P (MAP) 128/63 (84) Pulse Ox 96 O2 Delivery Nasal Cannula Nasal Cannula Nasal Cannula Nasal Cannula O2 Flow Rate 2.0 2.0 1.0 1.0 04/09/17 10:47 O2 Delivery Room Air Intake and Output 04/08/17 04/08/17 04/09/17 15:00 23:00 07:00 Intake Total 1000 ml 0 ml 100 ml Output Total 150 ml Balance 1000 ml 0 ml -50 ml VANIA HUTSON III DO Apr 09, 2017 10:58
[2017-04-09 11:00] VITALS: BP 118/78
[2017-04-09] MEDS ORDERED: IV NORMAL SALINE 500ML BAG 500 ML IV PRN (11:15)
[2017-04-09] MEDS ORDERED: MAGNESIUM SULFATE 2GM 50 ML IV PRN (11:15)
--- NOTE | 2017-04-09 11:22 | PDOC2 ---
CONSULT Date of Consult Date of Consult DATE: 04/09/17 TIME: 11:17 Reason for Consult Reason for Consult: ANTHONY Referring Physician Referring Physician: Dr Rodriguez Identification/Chief Complaint Chief Complaint dehydration Problems: Source Source: Chart review, Patient History of Present Illness Reason for Visit: as dictated Past Medical History Cardiovascular: HTN CENTRAL NERVOUS SYSTEM: Other Heme/Onc: Other Psych: Other Musculoskeletal: Osteoarthritis Renal/: No pertinent hx Endocrine: Hypothyroidism Past Surgical History Past Surgical History: Appendectomy, Cholecystectomy, Colon Resection, Other Family History Family History: Hypothyroidism, Other Social History ALCOHOL: none Drugs: None Lives: with Family Current Problem List Problem List Problems Medical Problems: (1) Abdominal pain Status: Acute (2) Acute renal failure Status: Acute (3) Colon cancer Status: Acute (4) Leukocytosis Status: Acute Current Medications Current Medications Current Medications Hydromorphone HCl (Dilaudid) 1 mg PRN Q15MIN PRN IV/SQ PAIN GREATER THAN 3/10 Last administered on 04/08/17 15:16; Start 04/08/17 at 13:15; Stop 04/09/17 at 13:14 Sodium Chloride 1,000 ml @ 1,000 mls/hr Q1H IV Last administered on 04/08/17 13:43; Start 04/08/17 at 13:30; Stop 04/08/17 at 14:29; Status DC Sodium Chloride (Normal Saline Flush) 10 ml QSHIFT PRN IV AFTER MEDS AND BLOOD DRAWS; Start 04/08/17 at 13:15 Ondansetron HCl (Zofran) 4 mg 1X ONCE IV Last administered on 04/08/17 13:43 ; Start 04/08/17 at 13:30; Stop 04/08/17 at 13:31; Status DC Ondansetron HCl (Zofran) 4 mg PRN Q8HRS PRN IV NAUSEA/VOMITING Last administered on 04/09/17 06:30; Start 04/08/17 at 15:15; Stop 04/09/17 at 15:14 Fentanyl Citrate (Fentanyl 2ml Vial) 50 mcg PRN Q2HR PRN IV PAIN Last administered on 04/09/17 10:47; Start 04/08/17 at 15:15; Stop 04/09/17 at 15:14 Acetaminophen (Tylenol) 650 mg PRN Q4HRS PRN PO FEVER; Start 04/08/17 at 15:15 ; Stop 04/09/17 at 15:14 Amino Acids/ Glycerin/ Electrolytes 1,000 ml @ 75 mls/hr [id number] IV Last administered on 04/09/17 08:50; Start 04/08/17 at 19:30 Alprazolam (Xanax) 0.5 mg PRN Q8HRS PRN PO ANXIETY / AGITATION; Start 04/08/17 at 19:45 Docusate Sodium (Colace) 100 mg PRN DAILY PRN PO CONSTIPATION; Start 04/08/17 at 19:45 Levothyroxine Sodium (Synthroid) 50 mcg DAILY07 PO Last administered on 07:31; Start 04/09/17 at 07:00 Ondansetron HCl (Zofran Odt) 4 mg Q8HRS PO Last administered on 04/08/17 21:35 ; Start 04/08/17 at 22:00 Oxycodone/ Acetaminophen (Percocet 7.5/ 325) 1 tab PRN Q4HRS PRN PO MODERATE PAIN; Start 04/08/17 at 19:45 Pantoprazole Sodium (Protonix) 40 mg BIDBFRMEAL PO Last administered on 07:31; Start 04/09/17 at 07:30 Zolpidem Tartrate (Ambien) 5 mg QHS PO Last administered on 04/08/17 21:35; Start 04/08/17 at 21:00 Prochlorperazine Maleate (Compazine) 10 mg TID PO Last administered on 08:56; Start 04/08/17 at 21:00 Active Scripts Active Zofran Odt (Ondansetron) 4 Mg Tab.rapdis 1 Tab SL Q8HRS Percocet 5-325 Mg Tablet (Oxycodone/Acetaminophen) 1 Each Tablet 1-2 Tab PO Q4- 6HRS Levaquin (Levofloxacin) 500 Mg Tablet 1 Tab PO DAILY Zofran Odt (Ondansetron) 4 Mg Tab.rapdis 1 Tab SL Q8HRS Pantoprazole Sodium 40 Mg Tablet.dr 40 Mg PO BIDBFRMEAL 60 Days Alprazolam 0.5 Mg Tablet 0.5 Mg PO PRN Q8HRS PRN Compazine (Prochlorperazine Maleate) 10 Mg Tablet 10 Mg PO Q8HRS Docusate Sodium 100 Mg Capsule 100 Mg PO PRN DAILY PRN Oxycodon-Acetaminophen 7.5-325 (Oxycodone Hcl/Acetaminophen) 1 Each Tablet 1 Tab PO PRN Q4HRS PRN Reported Ambien (Zolpidem Tartrate) 5 Mg Tablet 1 Tab PO QHS Levothyroxine Sodium 50 Mcg Tablet 1 Tab PO DAILY Allergies Allergies: Coded Allergies: sulfamethoxazole (Verified Adverse Reaction, Intermediate, GI UPSET, ) trimethoprim (Verified Adverse Reaction, Intermediate, GI UPSET, 03/01/17) ROS Review of System GEN: no Fevers no Chills EYES: no Visual Complaints ENT: no EN Drainage no Hearing deficiets CVS: no Orthopnea no CP RESP: no SOB no KENNEY GI: no Nausea no Vomiting +++ Ileo-ostomy diarrhea : no Dysuria no Urgency Dark and min UO HEME: no easy bruising no Palp Ly Nodes NEURO no Focal Weakness no Sz PSYCH: no Suicidal Ideation min Depression SKIN: no Rashes ENDO: no Polyuria or Polydipsia no Hot/Cold Intolerance MU SK: occ Arthraigia no Myalgia Physical Exam Physical Exam General Appearance: Awake Alert Oriented x 3 In no Distress Eyes: VIsion Unchanged Conjunctiva Normal EN: No EN Drainage Mucous Memb. dryish Neck: no JVD no JVP Supple no Thyromegaly CVS: S1 S2 no Murmur No Gallop No Rub no Edema Resp: no Rales no Rhonchi no Acc. Muscle use GI: BS +ve NO Bruit Non Tender Non Distended Ileo-ostomy : no CVA tenderness; no Suprapubic Tenderness SKIN: no visible Rashes Breast Exam deferred Mu.Sk: Adequate ROM no Muscle Atrophy Heme: Unable to palpate Obvious LAD no Splenomegaly NEURO: Good Strength and Tone Cranial Nerves II - XII grossly intact Psych: min Depressed no Active hallucination Vital Signs Vital Signs Date Time Temp Pulse Resp B/P (MAP) Pulse Ox O2 Delivery O2 Flow Rate FiO2 04/09/17 11:00 97.6 78 16 118/78 (91) Room Air 98.0 97.6 04/09/17 06:30 96 Assessment & Plan ANTHONY - Oliguria - suspect due to Sev VMN, Dehdyration. IVF as ordered. Current FLuid and E-lyte status does not necessitate emergent need for Dialysis. Will re-evaluate for Dialysis in am Oliguria - Vol dpeeltion - Aggressive IVf - Pt reports NO Cardiac history Dehydration asso with ^^ Ileo-ostomy drng despite IVF as being done in OP setting - IVF and PPN as orderd Low Na - IV NS for now - May need to D/c PPN if it continues to drop Discussed Plan of Care and prognosis etc. at length with family. Labs Labs Laboratory Tests Test 04/08/17 13:38 04/08/17 14:12 White Blood Count 23.2 x10^3/uL (4.0-11.0) Red Blood Count 4.91 x10^6/uL (3.50-5.40) Hemoglobin 14.5 g/dL (12.0-15.5) Hematocrit 43.1 % (36.0-47.0) Mean Corpuscular Volume 88 fL (79-100) Mean Corpuscular Hemoglobin 29 pg (25-35) Mean Corpuscular Hemoglobin Concent 34 g/dL (31-37) Red Cell Distribution Width 20.3 % (11.5-14.5) Platelet Count 339 x10^3/uL (140-400) Neutrophils (%) (Auto) 78 % (31-73) Lymphocytes (%) (Auto) 16 % (24-48) Monocytes (%) (Auto) 5 % (0-9) Eosinophils (%) (Auto) 0 % (0-3) Basophils (%) (Auto) 1 % (0-3) Neutrophils # (Auto) 18.2 x10^3uL (1.8-7.7) Lymphocytes # (Auto) 3.7 x10^3/uL (1.0-4.8) Monocytes # (Auto) 1.2 x10^3/uL (0.0-1.1) Eosinophils # (Auto) 0.0 x10^3/uL (0.0-0.7) Basophils # (Auto) 0.2 x10^3/uL (0.0-0.2) Segmented Neutrophils % 70 % (35-66) Band Neutrophils % 4 % (0-9) Lymphocytes % 16 % (24-48) Monocytes % 6 % (0-10) Metamyelocytes % 4 % (0-0) Platelet Estimate Adequate (ADEQUATE) Anisocytosis Mod Macrocytosis Slight Sodium Level 129 mmol/L (136-145) Potassium Level 3.6 mmol/L (3.5-5.1) Chloride Level 88 mmol/L (98-107) Carbon Dioxide Level 26 mmol/L (21-32) Anion Gap 15 (6-14) Blood Urea Nitrogen 41 mg/dL (7-20) Creatinine 3.9 mg/dL (0.6-1.0) Estimated GFR (Cockcroft-Gault) 11.8 BUN/Creatinine Ratio 11 (6-20) Glucose Level 117 mg/dL (70-99) Calcium Level 10.1 mg/dL (8.5-10.1) Total Bilirubin 0.4 mg/dL (0.2-1.0) Aspartate Amino Transf (AST/SGOT) 22 U/L (15-37) Alanine Aminotransferase (ALT/SGPT) 48 U/L (14-59) Alkaline Phosphatase 185 U/L (46-116) Creatine Kinase 24 U/L (26-192) Creatine Kinase MB (Mass) 0.8 ng/mL (0.0-3.6) Creatine Kinase MB Relative Index % (0-4) Troponin I Quantitative < 0.017 ng/mL (0.000-0.055) Total Protein 8.4 g/dL (6.4-8.2) Albumin 4.4 g/dL (3.4-5.0) Albumin/Globulin Ratio 1.1 (1.0-1.7) Lipase 133 U/L (73-393) Lactic Acid Level 1.7 mmol/L (0.4-2.0) Laboratory Tests Test 04/08/17 13:38 04/08/17 14:12 White Blood Count 23.2 x10^3/uL (4.0-11.0) Red Blood Count 4.91 x10^6/uL (3.50-5.40) Hemoglobin 14.5 g/dL (12.0-15.5) Hematocrit 43.1 % (36.0-47.0) Mean Corpuscular Volume 88 fL (79-100) Mean Corpuscular Hemoglobin 29 pg (25-35) Mean Corpuscular Hemoglobin Concent 34 g/dL (31-37) Red Cell Distribution Width 20.3 % (11.5-14.5) Platelet Count 339 x10^3/uL (140-400) Neutrophils (%) (Auto) 78 % (31-73) Lymphocytes (%) (Auto) 16 % (24-48) Monocytes (%) (Auto) 5 % (0-9) Eosinophils (%) (Auto) 0 % (0-3) Basophils (%) (Auto) 1 % (0-3) Neutrophils # (Auto) 18.2 x10^3uL (1.8-7.7) Lymphocytes # (Auto) 3.7 x10^3/uL (1.0-4.8) Monocytes # (Auto) 1.2 x10^3/uL (0.0-1.1) Eosinophils # (Auto) 0.0 x10^3/uL (0.0-0.7) Basophils # (Auto) 0.2 x10^3/uL (0.0-0.2) Segmented Neutrophils % 70 % (35-66) Band Neutrophils % 4 % (0-9) Lymphocytes % 16 % (24-48) Monocytes % 6 % (0-10) Metamyelocytes % 4 % (0-0) Platelet Estimate Adequate (ADEQUATE) Anisocytosis Mod Macrocytosis Slight Sodium Level 129 mmol/L (136-145) Potassium Level 3.6 mmol/L (3.5-5.1) Chloride Level 88 mmol/L (98-107) Carbon Dioxide Level 26 mmol/L (21-32) Anion Gap 15 (6-14) Blood Urea Nitrogen 41 mg/dL (7-20) Creatinine 3.9 mg/dL (0.6-1.0) Estimated GFR (Cockcroft-Gault) 11.8 BUN/Creatinine Ratio 11 (6-20) Glucose Level 117 mg/dL (70-99) Calcium Level 10.1 mg/dL (8.5-10.1) Total Bilirubin 0.4 mg/dL (0.2-1.0) Aspartate Amino Transf (AST/SGOT) 22 U/L (15-37) Alanine Aminotransferase (ALT/SGPT) 48 U/L (14-59) Alkaline Phosphatase 185 U/L (46-116) Creatine Kinase 24 U/L (26-192) Creatine Kinase MB (Mass) 0.8 ng/mL (0.0-3.6) Creatine Kinase MB Relative Index % (0-4) Troponin I Quantitative < 0.017 ng/mL (0.000-0.055) Total Protein 8.4 g/dL (6.4-8.2) Albumin 4.4 g/dL (3.4-5.0) Albumin/Globulin Ratio 1.1 (1.0-1.7) Lipase 133 U/L (73-393) Lactic Acid Level 1.7 mmol/L (0.4-2.0) JASON ONEILL MD Apr 09, 2017 11:22
[2017-04-09 12:11] LABS: ALBUMIN 3.5 g/dL (3.4-5.0); CALCIUM 9.3 mg/dL (8.5-10.1); CREATININE 2.2 mg/dL (0.6-1.0); GFR 22.8; POTASSIUM 3.7 mmol/L (3.5-5.1); TOTAL BILIRUBIN 0.3 mg/dL (0.2-1.0)
[2017-04-09 12:12] LABS: URIC ACID 8.7 mg/dL (2.6-6.0)
[2017-04-09] MEDS: IV NORMAL SALINE 1000ML BAG 1,000 ML IV SCH ×2 (12:42→20:56)
--- NOTE | 2017-04-09 13:47 | RAD ---
Indication acute renal failure superimposed on chronic renal disease. Grayscale imaging targeted to the kidneys was performed. No similar recent imaging is available. The right kidney measures 10.3 x 4.4 x 4.4 cm and appears unremarkable. No hydronephrosis or mass is seen. The urinary bladder appeared grossly normal. The left kidney measures 11.9 x 5.3 x 5.2 cm and also appears unremarkable showing no evidence of hydronephrosis or mass. The abdominal aorta appeared unremarkable. Much of the IVC was obscured but that portion of the IVC which was seen appeared unremarkable. IMPRESSION: Normal morphologic appearance of the kidneys
[2017-04-09 14:55] VITALS: BP 147/65
[2017-04-09] MEDS ORDERED: CALCIUM CARBONATE 500 MG TAB.CHEW PO PRN (15:00)
--- NOTE | 2017-04-09 15:00 | PDOC2 ---
GI CONSULT Reason For Consult: Diarrhea HPI: HPI: 61 y/o female w/ h/o colon cancer w/ widespread intraabdominal mets, s/p partial colectomy and then expl lap w/ ileostomy. Follows w/ Dr. Corona, was due for third chemo treatment today. Evaluated in ER w/ weakness, decreased PO intake, dehydration; admitted w/ ANTHONY. GI consult requested for diarrhea. Since second surgery/ileostomy placement, she has been concerned w/ watery output. She empties ileostomy bag 10-15 times daily; this is unchanged. No bleeding. Some abd pain, mostly upper. Some reflux (bothersome today), on PPI QD-BID at home. Recent atbx use (Levaquin), stools unchanged. Tried Imodium for a few days, no help. No n/v, just not hungry. PMH: PMH: HTN, AML, neuropathy, OA, hypothyroidism, appendectomy, cholecystectomy, colon resection, ileostomy FH: Family History: Cancer, Other (hypothyroidism, COPD) Social History: Smoke: Quit ALCOHOL: none Drugs: None ROS: GEN: Denies fevers, chills, sweats HEENT: Denies blurred vision, sore throat CV: Denies chest pain RESP: Denies shortness of air, cough GI: Per HPI : Denies hematuria, dysuria ENDO: +weight loss NEURO: Denies confusion, dizziness MSK: +weakness SKIN: Denies jaundice, pruritus Vitals: Vitals: Vital Signs Date Time Temp Pulse Resp B/P (MAP) Pulse Ox O2 Delivery O2 Flow Rate FiO2 04/09/17 11:31 Room Air 04/09/17 11:00 97.6 78 16 118/78 (91) 98.0 97.6 04/09/17 06:30 96 Labs: Labs: Laboratory Tests Test 04/09/17 11:25 Erythrocyte Sedimentation Rate 33 (0-25) Sodium Level 128 mmol/L (136-145) Potassium Level 3.7 mmol/L (3.5-5.1) Chloride Level 89 mmol/L (98-107) Carbon Dioxide Level 29 mmol/L (21-32) Anion Gap 10 (6-14) Blood Urea Nitrogen 49 mg/dL (7-20) Creatinine 2.2 mg/dL (0.6-1.0) Estimated GFR (Cockcroft-Gault) 22.8 BUN/Creatinine Ratio 22 (6-20) Glucose Level 104 mg/dL (70-99) Uric Acid 8.7 mg/dL (2.6-6.0) Calcium Level 9.3 mg/dL (8.5-10.1) Total Bilirubin 0.3 mg/dL (0.2-1.0) Aspartate Amino Transf (AST/SGOT) 17 U/L (15-37) Alanine Aminotransferase (ALT/SGPT) 35 U/L (14-59) Alkaline Phosphatase 155 U/L (46-116) Creatine Kinase 22 U/L (26-192) Total Protein 7.0 g/dL (6.4-8.2) Albumin 3.5 g/dL (3.4-5.0) Albumin/Globulin Ratio 1.0 (1.0-1.7) Allergies: Coded Allergies: sulfamethoxazole (Verified Adverse Reaction, Intermediate, GI UPSET, ) trimethoprim (Verified Adverse Reaction, Intermediate, GI UPSET, 03/01/17) Medications: Current Medications Medications (Trade) Dose Ordered Sig/Nneka Route PRN Reason Start Time Stop Time Status Last Admin Dose Admin Ondansetron HCl (Zofran) 4 mg PRN Q8HRS PRN IV NAUSEA/VOMITING 04/08/17 15:15 04/09/17 15:14 04/09/17 06:30 Fentanyl Citrate (Fentanyl 2ml Vial) 50 mcg PRN Q2HR PRN IV PAIN 04/08/17 15:15 04/09/17 15:14 04/09/17 10:47 Amino Acids/ Glycerin/ Electrolytes 1,000 ml @ 75 mls/hr [id number] IV 04/08/17 19:30 04/09/17 08:50 Levothyroxine Sodium (Synthroid) 50 mcg DAILY07 PO 04/09/17 07:00 04/09/17 07:31 Ondansetron HCl (Zofran Odt) 4 mg Q8HRS PO 04/08/17 22:00 04/08/17 21:35 Pantoprazole Sodium (Protonix) 40 mg BIDBFRMEAL PO 04/09/17 07:30 04/09/17 07:31 Zolpidem Tartrate (Ambien) 5 mg QHS PO 04/08/17 21:00 04/08/17 21:35 Prochlorperazine Maleate (Compazine) 10 mg TID PO 04/08/17 21:00 04/09/17 08:56 Sodium Chloride 1,000 ml @ 75 mls/hr [id number] IV 04/09/17 12:00 04/09/17 12:42 Imaging: Imaging: CT A/P w/o contrast Impression: 1. Mild fat stranding identified in the pelvis about the distal sigmoid colon region, nonspecific similar to prior exam , minimal colitis or diverticulitis is a possibility, however an inflamed diverticula is not clearly identified. 2. Faint fat stranding identified about the anastomosis of hemicolectomy similar to prior exam, nonspecific. Small foci of nodular soft tissue thickening in the right paracolic gutter unchanged. 3. Cholecystectomy changes. 4. Punctate 1 mm intrarenal collecting system calculus identified in the right kidney. Renal US IMPRESSION: Normal morphologic appearance of the kidneys. PE: GEN: NAD, sitting on edge of bed HEENT: Atraumatic, PERRL LUNGS: CTAB HEART: RRR ABD: surgical scars, ileostomy RLQ w/ watery stool, tenderness mostly epigastric EXTREMITY: No edema SKIN: No rashes, no jaundice NEURO/PSYCH: A & O 3 A/P: A/P: Metastatic colon cancer on chemo S/p partial colon resection, then expl lap w/ ileostomy Watery stools through ileostomy Weakness, decreased PO intake Reflux ANTHONY -- Ileostomy output unchanged since surgery even w/ recent atbx use. ?Lomotil - will review w/ Dr. Chester. KWESI HARDIN Apr 09, 2017 15:00
[2017-04-09] MEDS ORDERED: ONDANSETRON PF 4 MG/2 ML VIAL. IV PRN (16:00)
[2017-04-09 16:36] LABS: BILIRUBIN,URINE NEGATIVE (NEG); GLUCOSE,URINE NEGATIVE (NEG); NITRITE,URINE NEGATIVE (NEG); PH,URINE 5.5; PROTEIN,URINE NEGATIVE (NEG-TRACE); UROBILINOGEN,URINE 0.2 mg/dL (0.2 mg/dL)
[2017-04-09 16:48] LABS: BACTERIA,URINE 0 /HPF (0-FEW); RBC,URINE 0 /HPF (0-2); SQUAMOUS EPITHELIAL CELL,UR FEW /LPF
[2017-04-09 19:05] VITALS: BP 115/66
[2017-04-09] MEDS: ZOLPIDEM 5 MG TABLET. PO SCH (20:53)
[2017-04-09] MEDS: ALPRAZolam 0.5 MG TABLET PO PRN (20:53)
[2017-04-09 23:05] VITALS: BP 116/54
[2017-04-10 03:05] VITALS: BP 123/60
--- NOTE | 2017-04-10 03:18 | CONS ---
DATE OF CONSULTATION: PRIMARY PHYSICIAN: ____ and Dr. Rodriguez. REASON FOR CONSULTATION: Acute renal failure. HISTORY OF PRESENT ILLNESS: The patient is a pleasant unfortunate 61-year-old female with baseline creatinine 0.7 and 0.9. She is known to have a history of colon cancer, is now status post ileostomy for 2 months after bowel resection. She is currently getting chemotherapy. She is noted to have a tendency to hypovolemia and dehydration associated with diarrhea from her ileostomy. She gets IV fluids as an outpatient on a regular basis, despite that she presented to the ER with severe dehydration and flank pain. She underwent CT scan, which was nonrevealing for cause of her dehydration. Her urine output has been decreased. She is orthostatic. She claims everything she tries to take by mouth goes into her ileostomy. In this setting, she was noted to have a BUN of 41, creatinine 3.9, sodium 129. We were asked to see her for the same. She is currently on PPN and a normal saline has been added due to low sodium levels. For rest of details, see electronic records. JASON ONEILL MD DR: TONO/saad JOB#: [id number] / [id number]
[2017-04-10] MEDS: ONDANSETRON ODT 4 MG TAB.RAPDIS. PO SCH ×3 (05:54→20:55)
[2017-04-10] MEDS: LEVOTHYROXINE 50 MCG TABLET PO SCH (05:54)
[2017-04-10 06:05] LABS: BASO # 0.1 x10^3/uL (0.0-0.2); BASO % 1 % (0-3); EOS % 0 % (0-3); HEMATOCRIT 32.2 % (36.0-47.0); HEMOGLOBIN 10.8 g/dL (12.0-15.5); LYMPH # 3.5 x10^3/uL (1.0-4.8); LYMPH % 18 % (24-48); MEAN CORPUSCULAR HEMOGLOBIN 30 pg (25-35); MEAN CORPUSCULAR HGB CONC 34 g/dL (31-37); MEAN CORPUSCULAR VOLUME 88 fL (79-100); MONO % 5 % (0-9); NEUT % 76 % (31-73); PLATELET COUNT 236 x10^3/uL (140-400); RED BLOOD COUNT 3.65 x10^6/uL (3.50-5.40); RED CELL DISTRIBUTION WIDTH 20.2 % (11.5-14.5); WHITE BLOOD COUNT 19.2 x10^3/uL (4.0-11.0)
[2017-04-10 06:20] LABS: ALBUMIN 2.8 g/dL (3.4-5.0); CALCIUM 8.5 mg/dL (8.5-10.1); CREATININE 1.1 mg/dL (0.6-1.0); GFR 50.8; PHOSPHORUS 2.5 mg/dL (2.6-4.7); POTASSIUM 3.3 mmol/L (3.5-5.1)
[2017-04-10 07:00] VITALS: BP 123/71
[2017-04-10] MEDS ORDERED: BARIUM SULFATE 60% 355 ML SUSP PO ONE (07:45)
[2017-04-10] MEDS: PROCHLORPERAZINE 5 MG TABLET. PO SCH ×3 (09:57→20:56)
[2017-04-10] MEDS: PANTOPRAZOLE 40 MG TABLET.DR. PO SCH ×2 (09:57→17:17)
[2017-04-10] MEDS: fentaNYL PF VIAL 100 MCG/2 ML VIAL IV PRN ×5 (10:03→20:54)
[2017-04-10 10:37] VITALS: BP 144/73
[2017-04-10] MEDS: AMINO AC 3%/ELECTROLYTE/GLYCER 1,000 ML IV SCH ×2 (11:30→22:18)
--- NOTE | 2017-04-10 13:07 | PDOC ---
SUBJECTIVE ROS ANTHONY Doing and feeling much better today - diarrhea has slowed some CVS: no Orthopnea, no CP RESP: no SOB, no KENNEY GI: no Nausea, no Vomiting : no Dysuria, no Urgency - UO has picked up too PO intake is better OBJECTIVE Vital Signs Vital Signs Date Time Temp Pulse Resp B/P (MAP) Pulse Ox O2 Delivery O2 Flow Rate FiO2 04/10/17 12:17 98 Room Air 97.0 04/10/17 10:37 98.1 61 18 144/73 (96) 98.1 I & 0 Intake and Output 04/10/17 06:59 Intake Total 2200 ml Output Total 1375 ml Balance 825 ml Intake Oral 400 ml IV Total 1800 ml Output Urine Total 1375 ml PHYSICAL EXAM Physical Exam General Appearance: Awake Alert Oriented x 3 In no Distress Eyes: VIsion Unchanged Conjunctiva Normal EN: No EN Drainage Mucous Memb. dryish Neck: no JVD no JVP Supple no Thyromegaly CVS: S1 S2 no Murmur No Gallop No Rub no Edema Resp: no Rales no Rhonchi no Acc. Muscle use GI: BS +ve NO Bruit Non Tender Non Distended Ileo-ostomy : no CVA tenderness; no Suprapubic Tenderness Assessment & Plan ANTHONY - resolved Oliguria - Vol dpeeltion - resolved with Aggressive IVf Low K - IV K Phos, ct PPn Low pHos - ? Refeeding - IV K Phos x 1 Dehydration resolved - ct PPN as orderd Low Na - better now, so d/c IV NS for now - May need to D/c PPN if it drops Discussed Plan of Care and prognosis etc. at length with family - will be available prn COMMENT/RELEVANT DATA Meds Current Medications Medications (Trade) Dose Ordered Sig/Nneka Start Time Stop Time Status Last Admin Dose Admin Acetaminophen (Tylenol) 650 mg PRN Q4HRS PRN 04/08/17 15:15 04/09/17 15:14 DC Alprazolam (Xanax) 0.5 mg PRN Q8HRS PRN 04/08/17 19:45 04/09/17 20:53 0.5 MG Amino Acids/ Glycerin/ Electrolytes 1,000 ml @ 75 mls/hr [id number] 04/08/17 19:30 04/10/17 11:30 75 MLS/HR Barium Sulfate (Liquid E-Z Paque) 710 ml 1X ONCE 04/10/17 07:45 04/10/17 07:46 DC Calcium Carbonate/ Glycine (Tums) 500 mg PRN AFTMEALHC PRN 04/09/17 15:00 Docusate Sodium (Colace) 100 mg PRN DAILY PRN 04/08/17 19:45 Fentanyl Citrate (Fentanyl 2ml Vial) 50 mcg PRN Q2HR PRN 04/09/17 16:00 04/10/17 12:17 50 MCG Hydromorphone HCl (Dilaudid) 1 mg PRN Q15MIN PRN 04/08/17 13:15 04/09/17 13:14 DC 04/08/17 15:16 1 MG Levothyroxine Sodium (Synthroid) 50 mcg DAILY07 04/09/17 07:00 04/10/17 05:54 50 MCG Magnesium Sulfate/ Dextrose 50 ml @ 25 mls/hr PRN DAILY PRN 04/09/17 11:15 Ondansetron HCl (Zofran Odt) 4 mg Q8HRS 04/08/17 22:00 04/10/17 05:54 4 MG Ondansetron HCl (Zofran) 4 mg PRN Q8HRS PRN 04/09/17 16:00 04/09/17 16:13 4 MG Oxycodone/ Acetaminophen (Percocet 7.5/ 325) 1 tab PRN Q4HRS PRN 04/08/17 19:45 Pantoprazole Sodium (Protonix) 40 mg BIDBFRMEAL 04/09/17 07:30 04/10/17 09:57 40 MG Prochlorperazine Maleate (Compazine) 10 mg TID 04/08/17 21:00 04/10/17 09:57 10 MG Sodium Chloride 1,000 ml @ 75 mls/hr [id number] 04/09/17 12:00 04/09/17 20:56 75 MLS/HR Sodium Chloride (Normal Saline Flush) 10 ml QSHIFT PRN 04/08/17 13:15 Zolpidem Tartrate (Ambien) 5 mg QHS 04/08/17 21:00 04/09/17 20:53 5 MG Lab Laboratory Tests Test 04/09/17 16:20 04/10/17 05:50 Urine Collection Type Unknown Urine Color Yellow Urine Clarity Clear Urine pH 5.5 Urine Specific [place] 1.015 Urine Protein Negative mg/dL (NEG-TRACE) Urine Glucose (UA) Negative mg/dL (NEG) Urine Ketones (Stick) Negative mg/dL (NEG) Urine Blood Negative (NEG) Urine Nitrite Negative (NEG) Urine Bilirubin Negative (NEG) Urine Urobilinogen Dipstick 0.2 mg/dL (0.2 mg/dL) Urine Leukocyte Esterase Trace (NEG) Urine RBC 0 /HPF (0-2) Urine WBC 1-4 /HPF (0-4) Urine Squamous Epithelial Cells Few /LPF Urine Bacteria 0 /HPF (0-FEW) Urine Hyaline Casts Few /HPF Urine Mucus Mod /LPF White Blood Count 19.2 x10^3/uL (4.0-11.0) Red Blood Count 3.65 x10^6/uL (3.50-5.40) Hemoglobin 10.8 g/dL (12.0-15.5) Hematocrit 32.2 % (36.0-47.0) Mean Corpuscular Volume 88 fL (79-100) Mean Corpuscular Hemoglobin 30 pg (25-35) Mean Corpuscular Hemoglobin Concent 34 g/dL (31-37) Red Cell Distribution Width 20.2 % (11.5-14.5) Platelet Count 236 x10^3/uL (140-400) Neutrophils (%) (Auto) 76 % (31-73) Lymphocytes (%) (Auto) 18 % (24-48) Monocytes (%) (Auto) 5 % (0-9) Eosinophils (%) (Auto) 0 % (0-3) Basophils (%) (Auto) 1 % (0-3) Neutrophils # (Auto) 14.5 x10^3uL (1.8-7.7) Lymphocytes # (Auto) 3.5 x10^3/uL (1.0-4.8) Monocytes # (Auto) 1.0 x10^3/uL (0.0-1.1) Eosinophils # (Auto) 0.1 x10^3/uL (0.0-0.7) Basophils # (Auto) 0.1 x10^3/uL (0.0-0.2) Sodium Level 134 mmol/L (136-145) Potassium Level 3.3 mmol/L (3.5-5.1) Chloride Level 98 mmol/L (98-107) Carbon Dioxide Level 28 mmol/L (21-32) Anion Gap 8 (6-14) Blood Urea Nitrogen 32 mg/dL (7-20) Creatinine 1.1 mg/dL (0.6-1.0) Estimated GFR (Cockcroft-Gault) 50.8 Glucose Level 85 mg/dL (70-99) Calcium Level 8.5 mg/dL (8.5-10.1) Phosphorus Level 2.5 mg/dL (2.6-4.7) Magnesium Level 1.9 mg/dL (1.8-2.4) Albumin 2.8 g/dL (3.4-5.0) JASON ONEILL MD Apr 10, 2017 13:07
--- NOTE | 2017-04-10 13:37 | PDOC ---
Subjective: Subjective: Feeling better. Eating more, ileostomy output thicker. Objective: Objective: Per RN - SBS series rescheduled because was not NPO this morning. Vital Signs: Vital Signs Date Time Temp Pulse Resp B/P (MAP) Pulse Ox O2 Delivery O2 Flow Rate FiO2 04/10/17 12:17 98 Room Air 97.0 04/10/17 10:37 98.1 61 18 144/73 (96) 98.1 Labs: Laboratory Tests Test 04/09/17 16:20 04/10/17 05:50 Urine Collection Type Unknown Urine Color Yellow Urine Clarity Clear Urine pH 5.5 Urine Specific [place] 1.015 Urine Protein Negative mg/dL Urine Glucose (UA) Negative mg/dL Urine Ketones (Stick) Negative mg/dL Urine Blood Negative Urine Nitrite Negative Urine Bilirubin Negative Urine Urobilinogen Dipstick 0.2 mg/dL Urine Leukocyte Esterase Trace Urine RBC 0 /HPF Urine WBC 1-4 /HPF Urine Squamous Epithelial Cells Few /LPF Urine Bacteria 0 /HPF Urine Hyaline Casts Few /HPF Urine Mucus Mod /LPF White Blood Count 19.2 x10^3/uL Red Blood Count 3.65 x10^6/uL Hemoglobin 10.8 g/dL Hematocrit 32.2 % Mean Corpuscular Volume 88 fL Mean Corpuscular Hemoglobin 30 pg Mean Corpuscular Hemoglobin Concent 34 g/dL Red Cell Distribution Width 20.2 % Platelet Count 236 x10^3/uL Neutrophils (%) (Auto) 76 % Lymphocytes (%) (Auto) 18 % Monocytes (%) (Auto) 5 % Eosinophils (%) (Auto) 0 % Basophils (%) (Auto) 1 % Neutrophils # (Auto) 14.5 x10^3uL Lymphocytes # (Auto) 3.5 x10^3/uL Monocytes # (Auto) 1.0 x10^3/uL Eosinophils # (Auto) 0.1 x10^3/uL Basophils # (Auto) 0.1 x10^3/uL Sodium Level 134 mmol/L Potassium Level 3.3 mmol/L Chloride Level 98 mmol/L Carbon Dioxide Level 28 mmol/L Anion Gap 8 Blood Urea Nitrogen 32 mg/dL Creatinine 1.1 mg/dL Estimated GFR (Cockcroft-Gault) 50.8 Glucose Level 85 mg/dL Calcium Level 8.5 mg/dL Phosphorus Level 2.5 mg/dL Magnesium Level 1.9 mg/dL Albumin 2.8 g/dL PE: GEN: NAD, sitting up in bed LUNGS: CTAB HEART: RRR ABD: non-tender, ileostomy RLQ NEURO/PSYCH: A & O 3 A/P: Metastatic colon cancer on chemo S/p partial colon resection, expl lap w/ ileostomy Watery stools through ileostomy - improved Decreased appetite - improved ANTHONY - improved -- Improved. SBS rescheduled for tomorrow, await this. KWESI HARDIN Apr 10, 2017 13:37
[2017-04-10 14:28] LABS: TOTAL PROTEIN CREATININE RATIO 79 mg/g creat (0-200); UR PROTEIN RD 8.9 mg/dL (Not Estab.)
[2017-04-10] MEDS: POTASSIUM PHOSPHATE DIBASIC 13.6 MMOL in IV NORMAL SALINE 100ML 100 ML IV SCH ×3 (14:55→19:49)
[2017-04-10 15:33] VITALS: BP 135/79
--- NOTE | 2017-04-10 16:50 | PDOC ---
PROGRESS NOTES Chief Complaint Chief Complaint ARF Depression colon cancer with carcinomatosis, previous leukemia, hypertension, hypothyroidism, appendectomy, cholecystectomy, hysterectomy, tonsillectomy, bowel resection and ileostomy. History of Present Illness History of Present Illness Pt seen and examined VSS Depressed Nauseated Vitals Vitals Vital Signs Date Time Temp Pulse Resp B/P (MAP) Pulse Ox O2 Delivery O2 Flow Rate FiO2 04/10/17 15:33 98.0 64 18 135/79 (97) 97 Room Air 98.0 04/10/17 15:01 97.0 Physical Exam General: Alert, Oriented X3, Cooperative Heart: Regular rate, Normal S1, Normal S2 Lungs: Clear, Other Abdomen: Normal bowel sounds, Other (tender) Extremities: No clubbing, No cyanosis Skin: No rashes, No breakdown Labs LABS Laboratory Tests Test 04/10/17 05:50 White Blood Count 19.2 x10^3/uL (4.0-11.0) Red Blood Count 3.65 x10^6/uL (3.50-5.40) Hemoglobin 10.8 g/dL (12.0-15.5) Hematocrit 32.2 % (36.0-47.0) Mean Corpuscular Volume 88 fL (79-100) Mean Corpuscular Hemoglobin 30 pg (25-35) Mean Corpuscular Hemoglobin Concent 34 g/dL (31-37) Red Cell Distribution Width 20.2 % (11.5-14.5) Platelet Count 236 x10^3/uL (140-400) Neutrophils (%) (Auto) 76 % (31-73) Lymphocytes (%) (Auto) 18 % (24-48) Monocytes (%) (Auto) 5 % (0-9) Eosinophils (%) (Auto) 0 % (0-3) Basophils (%) (Auto) 1 % (0-3) Neutrophils # (Auto) 14.5 x10^3uL (1.8-7.7) Lymphocytes # (Auto) 3.5 x10^3/uL (1.0-4.8) Monocytes # (Auto) 1.0 x10^3/uL (0.0-1.1) Eosinophils # (Auto) 0.1 x10^3/uL (0.0-0.7) Basophils # (Auto) 0.1 x10^3/uL (0.0-0.2) Sodium Level 134 mmol/L (136-145) Potassium Level 3.3 mmol/L (3.5-5.1) Chloride Level 98 mmol/L (98-107) Carbon Dioxide Level 28 mmol/L (21-32) Anion Gap 8 (6-14) Blood Urea Nitrogen 32 mg/dL (7-20) Creatinine 1.1 mg/dL (0.6-1.0) Estimated GFR (Cockcroft-Gault) 50.8 Glucose Level 85 mg/dL (70-99) Calcium Level 8.5 mg/dL (8.5-10.1) Phosphorus Level 2.5 mg/dL (2.6-4.7) Magnesium Level 1.9 mg/dL (1.8-2.4) Albumin 2.8 g/dL (3.4-5.0) Review of Systems Review of Systems co nausea co depression Assessment and Plan Assessmemt and Plan Problems Medical Problems: (1) Abdominal pain Status: Acute (2) Acute renal failure Status: Acute (3) Colon cancer Status: Acute (4) Leukocytosis Status: Acute ARF Depression colon cancer with carcinomatosis, previous leukemia, hypertension, hypothyroidism, appendectomy, cholecystectomy, hysterectomy, tonsillectomy, bowel resection and ileostomy. 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 Labs Laboratory Tests Test 04/09/17 11:25 04/09/17 16:20 04/10/17 05:50 Erythrocyte Sedimentation Rate 33 (0-25) Sodium Level 128 mmol/L (136-145) 134 mmol/L (136-145) Potassium Level 3.7 mmol/L (3.5-5.1) 3.3 mmol/L (3.5-5.1) Chloride Level 89 mmol/L (98-107) 98 mmol/L (98-107) Carbon Dioxide Level 29 mmol/L (21-32) 28 mmol/L (21-32) Anion Gap 10 (6-14) 8 (6-14) Blood Urea Nitrogen 49 mg/dL (7-20) 32 mg/dL (7-20) Creatinine 2.2 mg/dL (0.6-1.0) 1.1 mg/dL (0.6-1.0) Estimated GFR (Cockcroft-Gault) 22.8 50.8 BUN/Creatinine Ratio 22 (6-20) Glucose Level 104 mg/dL (70-99) 85 mg/dL (70-99) Uric Acid 8.7 mg/dL (2.6-6.0) Calcium Level 9.3 mg/dL (8.5-10.1) 8.5 mg/dL (8.5-10.1) Total Bilirubin 0.3 mg/dL (0.2-1.0) Aspartate Amino Transf (AST/SGOT) 17 U/L (15-37) Alanine Aminotransferase (ALT/SGPT) 35 U/L (14-59) Alkaline Phosphatase 155 U/L (46-116) Creatine Kinase 22 U/L (26-192) Total Protein 7.0 g/dL (6.4-8.2) Albumin 3.5 g/dL (3.4-5.0) 2.8 g/dL (3.4-5.0) Albumin/Globulin Ratio 1.0 (1.0-1.7) Urine Collection Type Unknown Urine Color Yellow Urine Clarity Clear Urine pH 5.5 Urine Specific Switzer 1.015 Urine Protein 8.9 mg/dL (Not Estab.) Urine Glucose (UA) Negative mg/dL (NEG) Urine Ketones (Stick) Negative mg/dL (NEG) Urine Blood Negative (NEG) Urine Nitrite Negative (NEG) Urine Bilirubin Negative (NEG) Urine Urobilinogen Dipstick 0.2 mg/dL (0.2 mg/dL) Urine Leukocyte Esterase Trace (NEG) Urine RBC 0 /HPF (0-2) Urine WBC 1-4 /HPF (0-4) Urine Squamous Epithelial Cells Few /LPF Urine Bacteria 0 /HPF (0-FEW) Urine Hyaline Casts Few /HPF Urine Mucus Mod /LPF Urine Creatinine 112.0 mg/dL (Not Estab.) Urine Protein/Creatinine Ratio 79 mg/g creat (0-200) White Blood Count 19.2 x10^3/uL (4.0-11.0) Red Blood Count 3.65 x10^6/uL (3.50-5.40) Hemoglobin 10.8 g/dL (12.0-15.5) Hematocrit 32.2 % (36.0-47.0) Mean Corpuscular Volume 88 fL (79-100) Mean Corpuscular Hemoglobin 30 pg (25-35) Mean Corpuscular Hemoglobin Concent 34 g/dL (31-37) Red Cell Distribution Width 20.2 % (11.5-14.5) Platelet Count 236 x10^3/uL (140-400) Neutrophils (%) (Auto) 76 % (31-73) Lymphocytes (%) (Auto) 18 % (24-48) Monocytes (%) (Auto) 5 % (0-9) Eosinophils (%) (Auto) 0 % (0-3) Basophils (%) (Auto) 1 % (0-3) Neutrophils # (Auto) 14.5 x10^3uL (1.8-7.7) Lymphocytes # (Auto) 3.5 x10^3/uL (1.0-4.8) Monocytes # (Auto) 1.0 x10^3/uL (0.0-1.1) Eosinophils # (Auto) 0.1 x10^3/uL (0.0-0.7) Basophils # (Auto) 0.1 x10^3/uL (0.0-0.2) Phosphorus Level 2.5 mg/dL (2.6-4.7) Magnesium Level 1.9 mg/dL (1.8-2.4) Laboratory Tests Test 04/10/17 05:50 White Blood Count 19.2 x10^3/uL (4.0-11.0) Red Blood Count 3.65 x10^6/uL (3.50-5.40) Hemoglobin 10.8 g/dL (12.0-15.5) Hematocrit 32.2 % (36.0-47.0) Mean Corpuscular Volume 88 fL (79-100) Mean Corpuscular Hemoglobin 30 pg (25-35) Mean Corpuscular Hemoglobin Concent 34 g/dL (31-37) Red Cell Distribution Width 20.2 % (11.5-14.5) Platelet Count 236 x10^3/uL (140-400) Neutrophils (%) (Auto) 76 % (31-73) Lymphocytes (%) (Auto) 18 % (24-48) Monocytes (%) (Auto) 5 % (0-9) Eosinophils (%) (Auto) 0 % (0-3) Basophils (%) (Auto) 1 % (0-3) Neutrophils # (Auto) 14.5 x10^3uL (1.8-7.7) Lymphocytes # (Auto) 3.5 x10^3/uL (1.0-4.8) Monocytes # (Auto) 1.0 x10^3/uL (0.0-1.1) Eosinophils # (Auto) 0.1 x10^3/uL (0.0-0.7) Basophils # (Auto) 0.1 x10^3/uL (0.0-0.2) Sodium Level 134 mmol/L (136-145) Potassium Level 3.3 mmol/L (3.5-5.1) Chloride Level 98 mmol/L (98-107) Carbon Dioxide Level 28 mmol/L (21-32) Anion Gap 8 (6-14) Blood Urea Nitrogen 32 mg/dL (7-20) Creatinine 1.1 mg/dL (0.6-1.0) Estimated GFR (Cockcroft-Gault) 50.8 Glucose Level 85 mg/dL (70-99) Calcium Level 8.5 mg/dL (8.5-10.1) Phosphorus Level 2.5 mg/dL (2.6-4.7) Magnesium Level 1.9 mg/dL (1.8-2.4) Albumin 2.8 g/dL (3.4-5.0) Microbiology 04/08/17 Blood Culture - Preliminary, Resulted NO GROWTH AFTER 2 DAYS Medications Current Medications Hydromorphone HCl (Dilaudid) 1 mg PRN Q15MIN PRN IV/SQ PAIN GREATER THAN 3/10 Last administered on 04/08/17 15:16; Start 04/08/17 at 13:15; Stop 04/09/17 at 13:14; Status DC Sodium Chloride 1,000 ml @ 1,000 mls/hr Q1H IV Last administered on 04/08/17 13:43; Start 04/08/17 at 13:30; Stop 04/08/17 at 14:29; Status DC Sodium Chloride (Normal Saline Flush) 10 ml QSHIFT PRN IV AFTER MEDS AND BLOOD DRAWS; Start 04/08/17 at 13:15 Ondansetron HCl (Zofran) 4 mg 1X ONCE IV Last administered on 04/08/17 13:43 ; Start 04/08/17 at 13:30; Stop 04/08/17 at 13:31; Status DC Ondansetron HCl (Zofran) 4 mg PRN Q8HRS PRN IV NAUSEA/VOMITING Last administered on 04/09/17 06:30; Start 04/08/17 at 15:15; Stop 04/09/17 at 15:14 ; Status DC Fentanyl Citrate (Fentanyl 2ml Vial) 50 mcg PRN Q2HR PRN IV PAIN Last administered on 04/09/17 10:47; Start 04/08/17 at 15:15; Stop 04/09/17 at 15:14 ; Status DC Acetaminophen (Tylenol) 650 mg PRN Q4HRS PRN PO FEVER; Start 04/08/17 at 15:15 ; Stop 04/09/17 at 15:14; Status DC Amino Acids/ Glycerin/ Electrolytes 1,000 ml @ 75 mls/hr [id number] IV Last administered on 04/10/17 11:30; Start 04/08/17 at 19:30 Alprazolam (Xanax) 0.5 mg PRN Q8HRS PRN PO ANXIETY / AGITATION Last administered on 04/09/17 20:53; Start 04/08/17 at 19:45 Docusate Sodium (Colace) 100 mg PRN DAILY PRN PO CONSTIPATION; Start 04/08/17 at 19:45 Levothyroxine Sodium (Synthroid) 50 mcg DAILY07 PO Last administered on 05:54; Start 04/09/17 at 07:00 Ondansetron HCl (Zofran Odt) 4 mg Q8HRS PO Last administered on 04/10/17 14:54 ; Start 04/08/17 at 22:00 Oxycodone/ Acetaminophen (Percocet 7.5/ 325) 1 tab PRN Q4HRS PRN PO MODERATE PAIN; Start 04/08/17 at 19:45 Pantoprazole Sodium (Protonix) 40 mg BIDBFRMEAL PO Last administered on 09:57; Start 04/09/17 at 07:30 Zolpidem Tartrate (Ambien) 5 mg QHS PO Last administered on 04/09/17 20:53; Start 04/08/17 at 21:00 Prochlorperazine Maleate (Compazine) 10 mg TID PO Last administered on 14:54; Start 04/08/17 at 21:00 Magnesium Sulfate/ Dextrose 50 ml @ 25 mls/hr PRN DAILY PRN IV for Mag < 1.7 on am labs; Start 04/09/17 at 11:15 Sodium Chloride 500 ml @ 0 mls/hr QID PRN IV UO< 30cc/hr over previous 6hrs; Start 04/09/17 at 11:15 Sodium Chloride 1,000 ml @ 75 mls/hr [id number] IV Last administered on 20:56; Start 04/09/17 at 12:00; Stop 04/10/17 at 13:07; Status DC Calcium Carbonate/ Glycine (Tums) 500 mg PRN AFTMEALHC PRN PO INDIGESTION; Start 04/09/17 at 15:00 Fentanyl Citrate (Fentanyl 2ml Vial) 50 mcg PRN Q2HR PRN IV PAIN Last administered on 04/10/17 15:01; Start 04/09/17 at 16:00 Ondansetron HCl (Zofran) 4 mg PRN Q8HRS PRN IV NAUSEA/VOMITING Last administered on 04/09/17 16:13; Start 04/09/17 at 16:00 Barium Sulfate (Liquid E-Z Paque) 710 ml 1X ONCE PO ; Start 04/10/17 at 07:45; Stop 04/10/17 at 07:46; Status DC Potassium Phosphate 13.6 mmol/Sodium Chloride 104.5333 ml @ 52.267 m... Q2H IV Last administered on 04/10/17 14:55; Start 04/10/17 at 14:00; Stop 04/10/17 at 19:59 Active Scripts Active Zofran Odt (Ondansetron) 4 Mg Tab.rapdis 1 Tab SL Q8HRS Percocet 5-325 Mg Tablet (Oxycodone/Acetaminophen) 1 Each Tablet 1-2 Tab PO Q4- 6HRS Levaquin (Levofloxacin) 500 Mg Tablet 1 Tab PO DAILY Zofran Odt (Ondansetron) 4 Mg Tab.rapdis 1 Tab SL Q8HRS Pantoprazole Sodium 40 Mg Tablet.dr 40 Mg PO BIDBFRMEAL 60 Days Alprazolam 0.5 Mg Tablet 0.5 Mg PO PRN Q8HRS PRN Compazine (Prochlorperazine Maleate) 10 Mg Tablet 10 Mg PO Q8HRS Docusate Sodium 100 Mg Capsule 100 Mg PO PRN DAILY PRN Oxycodon-Acetaminophen 7.5-325 (Oxycodone Hcl/Acetaminophen) 1 Each Tablet 1 Tab PO PRN Q4HRS PRN Reported Ambien (Zolpidem Tartrate) 5 Mg Tablet 1 Tab PO QHS Levothyroxine Sodium 50 Mcg Tablet 1 Tab PO DAILY Vitals/I & O Vital Sign - Last 24 Hours 04/09/17 04/09/17 04/09/17 04/10/17 19:05 20:00 23:05 03:05 Temp 98.5 98.1 97.5 98.5 98.1 97.5 Pulse 77 57 59 Resp 20 20 18 B/P (MAP) 115/66 (82) 116/54 (74) 123/60 (81) Pulse Ox 98 96 98 O2 Delivery Room Air Room Air Room Air Room Air 04/10/17 04/10/17 04/10/17 04/10/17 07:00 08:00 10:03 10:37 Temp 97.6 98.1 97.6 98.1 Pulse 64 61 Resp 18 B/P (MAP) 123/71 (88) 144/73 (96) Pulse Ox 98 O2 Delivery Room Air Room Air Room Air Room Air O2 Flow Rate 99.0 99.0 97.0 04/10/17 04/10/17 04/10/17 04/10/17 12:17 13:47 15:01 15:33 Temp 98.0 98.0 Pulse 64 Resp 18 B/P (MAP) 135/79 (97) Pulse Ox 98 98 98 97 O2 Delivery Room Air Room Air Room Air Room Air O2 Flow Rate 97.0 97.0 97.0 Intake and Output 04/09/17 04/09/17 04/10/17 15:00 23:00 07:00 Intake Total 1800 ml 400 ml Output Total 225 ml 300 ml 850 ml Balance -225 ml 1500 ml -450 ml Nutrition Consultation Dietary Evaluation: Recommendations by RD: PPN/TPN, Add supplement feedings Comments: continue ppn for short term nutrition at this time boost pudding q day and prn, offer snacks/ supplements from unit prn Expected Outcomes/Goals: comfort care/ hospice Interpretation of weight loss: >7.5% in 3 months Malnutrition Findings: Food and Nutrition Intake (Sev: <50% est energy req 5days Reduced Braddisher Strength: N/A Weight Status: Overweight VANIA HUTSON III DO Apr 10, 2017 16:50
[2017-04-10] MEDS: ALPRAZolam 0.5 MG TABLET PO PRN (17:22)
[2017-04-10 19:45] VITALS: BP 118/44
[2017-04-10] MEDS: ZOLPIDEM 5 MG TABLET. PO SCH (22:10)
[2017-04-10 22:46] VITALS: BP 117/59
[2017-04-11] MEDS: fentaNYL PF VIAL 100 MCG/2 ML VIAL IV PRN (02:11)
[2017-04-11 03:16] VITALS: BP 101/37
[2017-04-11] MEDS: LEVOTHYROXINE 50 MCG TABLET PO SCH (05:37)
[2017-04-11] MEDS: ONDANSETRON ODT 4 MG TAB.RAPDIS. PO SCH (05:37)
[2017-04-11 05:56] LABS: BASO # 0.2 x10^3/uL (0.0-0.2); BASO % 1 % (0-3); EOS % 0 % (0-3); HEMATOCRIT 31.8 % (36.0-47.0); HEMOGLOBIN 10.4 g/dL (12.0-15.5); LYMPH # 3.2 x10^3/uL (1.0-4.8); LYMPH % 17 % (24-48); MEAN CORPUSCULAR HEMOGLOBIN 29 pg (25-35); MEAN CORPUSCULAR HGB CONC 33 g/dL (31-37); MEAN CORPUSCULAR VOLUME 89 fL (79-100); MONO % 3 % (0-9); NEUT % 79 % (31-73); PLATELET COUNT 217 x10^3/uL (140-400); RED BLOOD COUNT 3.58 x10^6/uL (3.50-5.40); RED CELL DISTRIBUTION WIDTH 19.7 % (11.5-14.5); WHITE BLOOD COUNT 19.2 x10^3/uL (4.0-11.0)
[2017-04-11 06:05] LABS: ALBUMIN 2.9 g/dL (3.4-5.0); CALCIUM 8.5 mg/dL (8.5-10.1); CREATININE 0.8 mg/dL (0.6-1.0); GFR 73.4; PHOSPHORUS 2.9 mg/dL (2.6-4.7)
[2017-04-11 07:00] VITALS: BP 120/37
[2017-04-11] MEDS: PANTOPRAZOLE 40 MG TABLET.DR. PO SCH (07:30)
[2017-04-11] MEDS ORDERED: BARIUM SULFATE 60% 355 ML SUSP PO ONE (08:15)
[2017-04-11] MEDS: PROCHLORPERAZINE 5 MG TABLET. PO SCH (09:00)
--- NOTE | 2017-04-11 09:46 | RAD ---
Small bowel series, 04/11/2017: History: Metastatic colon cancer, abdominal pain, nausea The preliminary abdominal image demonstrates a nonspecific gas pattern. There is extensive aortoiliac calcific plaquing as well as prominent splenic artery calcifications in the left upper quadrant. Surgical clips are present in the right upper quadrant. An ileostomy device overlies the right iliac bone. Overhead and spot films were obtained following oral ingestion of liquid barium. 0.4 minutes of fluoroscopy time was utilized. 3 fluoroscopic spot images were recorded. There is prompt passage of barium through the small bowel into the ileostomy. It reaches the ostomy bag at 20 minutes. The small bowel loops are of normal caliber with no evidence of thickening of their folds. IMPRESSION: Right lower quadrant ileostomy with no evidence of obstruction.
--- NOTE | 2017-04-11 10:30 | PDOC ---
Objective: Objective: Out for SBS. D/w RN - tolerating PO, stable ostomy output, no significant pain. Would like to DC today. Vital Signs: Vital Signs Date Time Temp Pulse Resp B/P (MAP) Pulse Ox O2 Delivery O2 Flow Rate FiO2 04/11/17 08:00 Room Air 04/11/17 07:00 97.9 54 18 120/37 (64) 97 97.9 04/10/17 17:17 97.0 Imaging: SBS 04/11/17 IMPRESSION: Right lower quadrant ileostomy with no evidence of obstruction. PE: no exam A/P: Metastatic colon cancer on chemo -- Watery stools and appetite improved. SBS unrevealing. DC per primary. KWESI HARDIN Apr 11, 2017 10:30
[2017-04-11 10:59] VITALS: BP 151/55
[2017-04-11] MEDS ORDERED: HEPARIN PF 500 UNIT/5 ML DISP.SYRIN. IV ONE (12:15)
--- NOTE | 2017-04-11 15:46 | DS ---
DATE OF DISCHARGE: 04/11/2017 ADMISSION DIAGNOSIS: Colon cancer with renal failure. DISCHARGE DIAGNOSIS: Resolving renal failure, chronic colon cancer (she is on chemotherapy and radiation, and she has already had surgery with an ostomy). HOSPITAL COURSE: The patient is a pleasant 61-year-old female who presented with abdominal pain, renal failure, dehydration, and nausea. Basically, she has got colon cancer. She has been undergoing chemotherapy. Her creatinine was 3.9. We admitted her. We gave her fluids, tried to advance her diet. Her prognosis is quite poor. We did consult Palliative Care and had a Hospice evaluation. We did give her 5 choices of Hospices. She interviewed a couple of them. Basically, she is at her baseline this morning. I examined her. Heart sounds were normal. Her lungs were Clear. Abdomen was soft. She was eating. Extremities have no edema. We plan to discharge with close outpatient followup. DISPOSITION: Home. ACTIVITY: As tolerated. DIET: Low sodium. MEDICATIONS: Please see the MRAD. TOTAL TIME ON DISCHARGE: 33 minutes. VANIA HUTSON DO DR: GABI/saad JOB#: [id number] / [id number]
== END 2017-04-11 12:36 | disposition home or self-care (01) | DRG 682 ==
LOC: ER 12:56 → 6 SOUTH 14:54
PROVIDERS: ADMIT Internal Medicine; ATTEND Internal Medicine
DX: N17.9 Acute kidney failure, unspecified (principal); R65.11 Systemic inflammatory response syndrome (SIRS) of non-infectious origin with acute organ dysfunction; C79.89 Secondary malignant neoplasm of other specified sites; C18.9 Malignant neoplasm of colon, unspecified; E87.1 Hypo-osmolality and hyponatremia; N18.4 Chronic kidney disease, stage 4 (severe); D72.829 Elevated white blood cell count, unspecified; E03.9 Hypothyroidism, unspecified; E86.0 Dehydration; E86.1 Hypovolemia; F32.9 Major depressive disorder, single episode, unspecified; G62.9 Polyneuropathy, unspecified; I12.9 Hypertensive chronic kidney disease with stage 1 through stage 4 chronic kidney disease, or unspecified chronic kidney disease; M19.90 Unspecified osteoarthritis, unspecified site; K21.9 Gastro-esophageal reflux disease without esophagitis; R62.7 Adult failure to thrive; Z51.5 Encounter for palliative care; Z82.5 Family history of asthma and other chronic lower respiratory diseases; Z83.3 Family history of diabetes mellitus; Z85.038 Personal history of other malignant neoplasm of large intestine; Z90.49 Acquired absence of other specified parts of digestive tract; Z93.2 Ileostomy status; Z93.3 Colostomy status; Z88.2 Allergy status to sulfonamides; Z88.8 Allergy status to other drugs, medicaments and biological substances; Z90.710 Acquired absence of both cervix and uterus; Z87.440 Personal history of urinary (tract) infections
CPT/HCPCS: 36415; 74176; 74250; 76770; 80053; 80069; 81001; 82550; 82553; 82570; 83605; 83690; 83735; 84156; 84300; 84484; 84550; 85007; 85027; 85651; 87040; 87086; 93005; 96361; 96374; 96375; 96376; J1170; J2405; J3010; J7030; Q0162; Q0164; 99285-25

== ENCOUNTER 2017-04-20 17:42 | Inpatient (IN) | payer OTHER ==
[~2017-04-20] VITALS: Ht 162.6 cm; Wt 64.4 kg
[2017-04-20] MEDS ORDERED: HYDROmorphone 2 MG/ML VIAL IV ONE ×2 (18:00→19:30)
--- NOTE | 2017-04-20 18:03 | PHYS DOC ---
Past Medical History Past Medical History: Cancer, Hypertension, Hypothyroid Additional Past Medical Histor: THYROID DZ, ACUTE MYELOID LEUKEMIA (2008) W/ REMISSION, COLON CA (2017) Past Surgical History: Appendectomy, Cholecystectomy, Hysterectomy, Tonsillectomy Additional Past Surgical Histo: BOWEL RESECTION W/ ILEOSTOMY Alcohol Use: None Drug Use: None Adult General Chief Complaint Chief Complaint: ABDOMINAL PAIN HPI HPI Patient is a 61 year old female who presents with increased her last bodyaches abdominal pain status post Neulasta shot. Patient has history of colon cancer with a colon resection and ileostomy undergoing chemotherapy and received a Neulasta shot yesterday and is not feeling well today. Patient describes her symptoms as a generalized weakness with nausea but no vomiting and bile output in her ileostomy. Patient denies any fevers. Patient denies any chest pain or shortness of breath. Patient is no other complaints. Pertinent exam findings: Heart is tachycardic with no murmurs Lungs are clear to auscultation bilaterally without crackles wheezes or rales Abdomen soft mild generalized tenderness bowel sounds heard ED course: Patient was seen and examined CBC, CMP, lipase, UA, CT scan abdomen and pelvis were ordered along with 1 L normal saline bolus along with Dilaudid 1812: EKG shows sinus tach rate of 106 no STEMI 2019: On reexamination the patient still tachycardic and not feeling well, excellent the patient we'll admit her for further evaluation and management 2024: Discussed CC/HP/PMH with Dr. Prince and recommends admit and the place the patient on Zosyn Pertinent results: CT: IMPRESSION: 1. Postsurgical changes with a presumed ileostomy in the right lower quadrant. 2. Unchanged tiny nodular opacities in the right paracolic gutter raising the possibility of abdominal carcinomatosis. 3. Unchanged streaky deep pelvic densities may be due to scarring. 4. No new abdominal or pelvic abnormality is detected. Lactic acid is 2.7 MDM: After reviewing the chart, CC/HPI/PMH, physical exam, [lab results], [ radiological results], I do not believe the patient is septic despite having an elevated lactic acid 2.7 however since the patient is still tachycardic and having significant pain with intractable nausea and vomiting will admit the patient for further evaluation and management. I will start the patient on profound antibiotics given the fact the patient is on chemotherapy. Review of Systems Review of Systems GEN: Denies weakness HEENT: Denies blurred vision, sore throat CV: Denies chest pain RESP: Denies shortness of air, cough GI: Positive nausea no vomiting NEURO: Denies confusion, dizziness MSK: Denies weakness, joint pain/swelling Current Medications Current Medications Current Medications Medications (Trade) Dose Ordered Sig/Nneka Start Time Stop Time Status Last Admin Dose Admin Hydromorphone HCl (Dilaudid) 1 mg 1X ONCE 04/20/17 19:30 04/20/17 19:31 DC 04/20/17 19:33 1 MG Info (Do NOT chart on this entry -- for MONITORING) 1 each PRN DAILY PRN 04/20/17 18:15 04/22/17 18:14 Iohexol (Omnipaque 300 Mg/ml) 75 ml 1X ONCE 04/20/17 18:15 04/20/17 18:16 DC 04/20/17 19:10 60 ML Metoclopramide HCl (Reglan) 10 mg 1X ONCE 04/20/17 19:30 04/20/17 19:31 DC 04/20/17 19:32 10 MG Ondansetron HCl (Zofran) 4 mg 1X ONCE 04/20/17 18:30 04/20/17 18:31 DC 04/20/17 18:29 4 MG Sodium Chloride 1,000 ml @ 1,000 mls/hr 1X ONCE 04/20/17 20:00 04/20/17 20:59 04/20/17 20:00 1,000 MLS/HR Sodium Chloride (NORMAL SALINE FLUSH for STERILE FIELD) 10 ml STK-MED ONCE 04/20/17 18:07 04/20/17 18:08 DC Allergies Allergies Allergies Coded Allergies Type Severity Reaction Last Updated Verified sulfamethoxazole Adverse Reaction Intermediate GI UPSET 03/01/17 Yes trimethoprim Adverse Reaction Intermediate GI UPSET 03/01/17 Yes Physical Exam Physical Exam GEN.: No apparent distress. Alert and oriented. HEENT: Head is normocephalic, atraumatic NECK: Supple. LUNGS: CTAB. HEART: Tachycardic, S1, S2 present. Peripheral pulses intact ABDOMEN: Soft, nontender. Positive bowel sounds. EXTREMITIES: Without any cyanosis. NEUROLOGIC: Normal speech, normal tone PSYCHIATRIC: Normal affect, normal mood. SKIN: No ulcerations Current Patient Data Vital Signs Vital Signs Date Time Temp Pulse Resp B/P (MAP) Pulse Ox O2 Delivery O2 Flow Rate FiO2 04/20/17 20:03 84 11 129/64 (85) 95 Room Air 04/20/17 17:50 97.3 97.3 Lab Values Laboratory Tests Test 04/20/17 18:20 Sodium Level 133 mmol/L (136-145) L Potassium Level 3.6 mmol/L (3.5-5.1) Chloride Level 94 mmol/L (98-107) L Carbon Dioxide Level 22 mmol/L (21-32) Anion Gap 17 (6-14) H Blood Urea Nitrogen 45 mg/dL (7-20) H Creatinine 1.1 mg/dL (0.6-1.0) H Estimated GFR (Cockcroft-Gault) 50.8 BUN/Creatinine Ratio 41 (6-20) H Glucose Level 99 mg/dL (70-99) Lactic Acid Level 2.7 mmol/L (0.4-2.0) H Calcium Level 10.0 mg/dL (8.5-10.1) Total Bilirubin 0.6 mg/dL (0.2-1.0) Aspartate Amino Transferase (AST) 20 U/L (15-37) Alanine Aminotransferase (ALT) 33 U/L (14-59) Alkaline Phosphatase 143 U/L (46-116) H Total Protein 7.6 g/dL (6.4-8.2) Albumin 4.2 g/dL (3.4-5.0) Albumin/Globulin Ratio 1.2 (1.0-1.7) Laboratory Tests 04/20/17 18:20 EKG EKG 1813: EKG shows sinus tach rate of 106 no STEMI [] Radiology/Procedures Radiology/Procedures CT abd and pelvis: IMPRESSION: 1. Postsurgical changes with a presumed ileostomy in the right lower quadrant. 2. Unchanged tiny nodular opacities in the right paracolic gutter raising the possibility of abdominal carcinomatosis. 3. Unchanged streaky deep pelvic densities may be due to scarring. 4. No new abdominal or pelvic abnormality is detected.[] Course & Med Decision Making Course & Med Decision Making Pertinent Labs and Imaging studies reviewed. (See chart for details) [] Dragon Disclaimer Dragon Disclaimer This electronic medical record was generated, in whole or in part, using a voice recognition dictation system. Departure Departure Impression: Primary Impression: Abdominal pain Additional Impressions: Vomiting Lactic acidosis Disposition: ADMITTED INPATIENT Admitting Physician: Other (Dr. Prince) Condition: STABLE Referrals: ZEHRA SMITH (PCP) Problem Qualifiers Primary Impression: Abdominal pain Abdominal location: generalized Qualified Codes: R10.84 - Generalized abdominal pain Additional Impressions: Vomiting Vomiting type: unspecified Vomiting Intractability: intractable Nausea presence: with nausea Qualified Codes: R11.2 - Nausea with vomiting, unspecified CONNER COTTON DO Apr 20, 2017 18:03
[2017-04-20] MEDS ORDERED: ONDANSETRON PF 4 MG/2 ML VIAL. ONE (18:06)
[2017-04-20] MEDS ORDERED: 0.9 % SOD CHL for STERILE FIELD 10 ML DISP.SYRIN. ONE (18:07)
[2017-04-20] MEDS ORDERED: CONTRAST GIVEN MC PRN (18:15)
[2017-04-20] MEDS ORDERED: IOHEXOL 300 MG/ML 75 ML VIAL IV ONE (18:15)
[2017-04-20] MEDS ORDERED: ONDANSETRON PF 4 MG/2 ML VIAL. IV ONE (18:30)
[2017-04-20 19:01] LABS: CREATININE 1.1 mg/dL (0.6-1.0); GFR 50.8; POTASSIUM 3.6 mmol/L (3.5-5.1)
[2017-04-20 19:07] LABS: ALBUMIN 4.2 g/dL (3.4-5.0); ALBUMIN/GLOBULIN RATIO 1.2 (1.0-1.7); TOTAL BILIRUBIN 0.6 mg/dL (0.2-1.0); TOTAL PROTEIN 7.6 g/dL (6.4-8.2)
[2017-04-20] MEDS ORDERED: METOCLOPRAMIDE HCL 10 MG/2 ML VIAL. IV ONE (19:30)
--- NOTE | 2017-04-20 19:47 | RAD ---
CT of the abdomen and pelvis with contrast, 04/20/2017: HISTORY: Abdominal pain, colon cancer, previous colostomy Multidetector CT imaging was performed following an IV bolus injection of iodinated contrast material. No oral contrast material was administered for this study is requested. Comparison is made to a study from 04/04/2017. The gallbladder is surgically absent. No hepatic mass is identified. The pancreas is unremarkable. The spleen is of normal size. No renal or adrenal abnormality is detected. There is extensive aortoiliac calcific plaquing without evidence of aneurysm. No retroperitoneal, pelvic or mesenteric adenopathy is seen. Surgical sutures are seen related to the colon in the left upper pelvis. There is an ostomy in the right lower quadrant which may be an ileostomy. The bowel loops are not dilated. There is no evidence of bowel obstruction. No free fluid or free air is evident in the abdomen or pelvis. There are several small nodular opacities in the right paracolic gutter region, unchanged since the previous study. There are several linear opacities in the deep pelvis which are unchanged. This may represent postsurgical scarring. IMPRESSION: 1. Postsurgical changes with a presumed ileostomy in the right lower quadrant. 2. Unchanged tiny nodular opacities in the right paracolic gutter raising the possibility of abdominal carcinomatosis. 3. Unchanged streaky deep pelvic densities may be due to scarring. 4. No new abdominal or pelvic abnormality is detected. Electronically signed by: Mario Riddle MD (04/20/2017 7:43 PM)
[2017-04-20] MEDS ORDERED: IV NORMAL SALINE 1000ML BAG 1,000 ML IV ONE (20:00)
[2017-04-20] MEDS ORDERED: PIPERACILLIN/TAZOBACTAM 4.5 GM in IV NORMAL SALINE 100ML 100 ML IV ONE (20:45)
[2017-04-20] MEDS ORDERED: ONDANSETRON PF 4 MG/2 ML VIAL. IV PRN (20:45)
[2017-04-20] MEDS ORDERED: MORPHINE SULFATE 4 MG/ML DISP.SYRIN. IV PRN (20:45)
--- NOTE | 2017-04-20 20:54 | ACF ---
Admission Forms Criteria VOMITING Clinical Indications for Admission to Inpatient Care ( Place 'X' for any and all applicable criteria): Admission is indicated for 1 or more of the following(1)(2)(3): [ ]I. Complete or partial gastrointestinal obstruction [ ]II. Vomiting due to significant metabolic derangement (eg, severe hypercalcemia, diabetic ketoacidosis) [ ]III. Other cause of vomiting requiring hospitalization (eg, poisoning, increased intracranial pressure) [X]IV. Inpatient admission required rather than observation care because of 1 or more of the following [ ]i) Hemodynamic instability [X]ii) Vomiting that is severe or persistent indicated by 1 or more of the following []1) Numerous episodes of vomiting in past 24hours (eg , every 1 to 2 hours) []2) Suggests severe underlying cause or complication ( eg, projectile, feculent, bilious, coffee ground, bloody) []3) Appropriate antiemetic treatment (eg, repeated oral or parenteral dosing) does not sufficiently reduce vomiting within 12 to 24 hours of treatment [X]4) Treatment regimen necessary to adequately control vomiting requires inpatient level of care (eg, not immediately available in outpatient setting) [ ]iii) Severe electrolyte abnormalities requiring inpatient care [ ]iv) Severe pain requiring acute inpatient management( Continuous or frequent (eg, every 2 to 4 hours) parental analgesics or analgesic regimen that can only be performed or initiated in inpatient setting) [ ]v) High fever or infection requiring inpatient admission as indicated by 1 or more of the following(7)(8): [ ]1) Appropriate outpatient or observation care antimicrobial treatment unavailable, not effective, or not feasible [ ]2) Documented bacteremia [ ]3) Temp >104.9 degrees F (40.5 degrees C) (oral) [ ]4) Temp >103.1 degrees F (39.5 C) (oral) or <96.8 degrees F (36 C) (rectal) that does not respond to all emergency treatment measures [ ]vi) Acute renal failure [ ]vii) IV fluid required rather than oral rehydration to replace significant on going losses (greater than 3 L/m2 per day) [ ]viii) Parenteral nutrition regimen that must be implemented on inpatient basis [ ]ix) Other condition, treatment or monitoring requiring inpatient admission Extended stay beyond goal length of stay may be needed for(1)(4): [ ]a) Severe vomiting [ ]b) Persistent vomiting, vital sign changes, severe electrolyte imbalance , or diagnosed cause of vomiting that requires continued hospitalization (eg, gastrointestinal obstruction , increased intracranial pressure) [ ]c) Surgery to treat identified causes of vomiting (eg, bowel obstruction , intracranial process) [ ]d) Comorbid illness that requires inpatient care (eg, acute heart failure , renal failure) [ ]e) Need for inpatient endoscopy The original [employer] content created by [employer] has been revised. The portions of the content which have been revised are identified through the use of italic text or in bold, and [facility] has neither reviewed nor approved the modified material. All other unmodified content is copyright [employer] includes the [facility]. Please see references footnoted in the original [employer] includes the [facility] edition 2016 Admission Criteria Met?: Yes TABITHA GUARDADO Apr 20, 2017 20:54
[2017-04-20 21:36] VITALS: BP 152/71
[2017-04-20 21:39] LABS: BASO # 0.1 x10^3/uL (0.0-0.2); BASO % 0 % (0-3); EOS % 0 % (0-3); HEMATOCRIT 38.4 % (36.0-47.0); HEMOGLOBIN 12.4 g/dL (12.0-15.5); LYMPH # 4.3 x10^3/uL (1.0-4.8); LYMPH % 5 % (24-48); MEAN CORPUSCULAR HEMOGLOBIN 29 pg (25-35); MEAN CORPUSCULAR HGB CONC 32 g/dL (31-37); MEAN CORPUSCULAR VOLUME 90 fL (79-100); MONO % 1 % (0-9); NEUT % 94 % (31-73); PLATELET COUNT 253 x10^3/uL (140-400); RED BLOOD COUNT 4.28 x10^6/uL (3.50-5.40); RED CELL DISTRIBUTION WIDTH 20.6 % (11.5-14.5)
[2017-04-20 21:43] LABS: WHITE BLOOD COUNT 98.5 x10^3/uL (4.0-11.0)
[2017-04-20 23:00] VITALS: BP 119/66
[2017-04-20] MEDS ORDERED: oxyCODONE/APAP 5/325 1 TAB TABLET PO PRN (23:15)
[2017-04-20] MEDS ORDERED: ALPRAZolam 0.5 MG TABLET PO PRN (23:15)
[2017-04-20] MEDS ORDERED: ONDANSETRON ODT 4 MG TAB.RAPDIS. PO PRN (23:15)
[2017-04-20] MEDS: ZOLPIDEM 5 MG TABLET. PO SCH (23:27)
[2017-04-20] MEDS: KETOROLAC 15 MG/ML VIAL. IV PRN (23:28)
[2017-04-20] MEDS: POTASSIUM CHLORIDE 20 MEQ in IV NORMAL SALINE 1000ML BAG 1,000 ML IV SCH (23:32)
--- NOTE | 2017-04-20 23:40 | PDOC1 ---
History and Physical Date of Admission Date of Admission DATE: 04/20/17 TIME: 23:10 Identification/Chief Complaint Chief Complaint Dehydration Problems: Source Source: Patient History of Present Illness History of Present Illness Mrs Montemayor is a 61 y/o woman with Colon CA, currently on adjuvant chemo which she received this week. She reports that ever since her resection with right sided ostomy, she has had significant issues with excessive fluid losses through her ostomy. This seems to get worse on the weeks of her FOLFOX chemo, the of which she received this Sat through Saturday, with Neulasta support on Saturday. She typically gets IVF at the cancer center on , but today she was still feeling run down, unable to eat with copious fluid losses, prompting visit to the ER. She denies any fevers, chills, has mild nausea, no vomiting. No abd pain per se, but her ostomy is very irritated and painful, moody with output. She has lortab at home, but is not taking it for fear of addiction. Past Medical History Cardiovascular: HTN Heme/Onc: Cancer (colon), Other (hx AML in 2007) Psych: Other Musculoskeletal: Osteoarthritis Endocrine: Hypothyroidism Past Surgical History Past Surgical History: Appendectomy, Cholecystectomy, Colon Resection, Other Family History Family History: Hypothyroidism Social History Smoke: No ALCOHOL: none Drugs: None Current Problem List Problem List Problems Medical Problems: (1) Abdominal pain Status: Acute (2) Lactic acidosis Status: Acute Problems: Current Medications Current Medications Current Medications Hydromorphone HCl (Dilaudid) 1 mg 1X ONCE IV Last administered on 04/20/17 18: 29; Start 04/20/17 at 18:00; Stop 04/20/17 at 18:03; Status DC Ondansetron HCl (Zofran) 4 mg STK-MED ONCE .ROUTE ; Start 04/20/17 at 18:06; Stop 04/20/17 at 18:07; Status DC Sodium Chloride (NORMAL SALINE FLUSH for STERILE FIELD) 10 ml STK-MED ONCE .ROUTE ; Start 04/20/17 at 18:07; Stop 04/20/17 at 18:08; Status DC Iohexol (Omnipaque 300 Mg/ml) 75 ml 1X ONCE IV Last administered on 04/20/17 19:10; Start 04/20/17 at 18:15; Stop 04/20/17 at 18:16; Status DC Info (Do NOT chart on this entry -- for MONITORING) 1 each PRN DAILY PRN MC SEE COMMENTS; Start 04/20/17 at 18:15; Stop 04/22/17 at 18:14 Ondansetron HCl (Zofran) 4 mg 1X ONCE IV Last administered on 04/20/17 18:29; Start 04/20/17 at 18:30; Stop 04/20/17 at 18:31; Status DC Hydromorphone HCl (Dilaudid) 1 mg 1X ONCE IV Last administered on 04/20/17 19: 33; Start 04/20/17 at 19:30; Stop 04/20/17 at 19:31; Status DC Metoclopramide HCl (Reglan) 10 mg 1X ONCE IV Last administered on 04/20/17 19: 32; Start 04/20/17 at 19:30; Stop 04/20/17 at 19:31; Status DC Sodium Chloride 1,000 ml @ 1,000 mls/hr 1X ONCE IV Last administered on 20:00; Start 04/20/17 at 20:00; Stop 04/20/17 at 20:59; Status DC Ondansetron HCl (Zofran) 4 mg PRN Q8HRS PRN IV NAUSEA/VOMITING; Start 04/20/17 at 20:45; Stop 04/21/17 at 20:44 Morphine Sulfate 4 mg PRN Q2HR PRN IV PAIN Last administered on 04/20/17 21:37 ; Start 04/20/17 at 20:45; Stop 04/21/17 at 20:44 Piperacillin Sod/ Tazobactam Sod 4.5 gm/Sodium Chloride 100 ml @ 200 mls/hr 1X ONCE IV Last administered on 04/20/17 21:40; Start 04/20/17 at 20:45; Stop 04/20/17 at 21:14; Status DC Active Scripts Active Zofran Odt (Ondansetron) 4 Mg Tab.rapdis 1 Tab SL Q8HRS Percocet 5-325 Mg Tablet (Oxycodone/Acetaminophen) 1 Each Tablet 1-2 Tab PO Q4- 6HRS Levaquin (Levofloxacin) 500 Mg Tablet 1 Tab PO DAILY Zofran Odt (Ondansetron) 4 Mg Tab.rapdis 1 Tab SL Q8HRS Pantoprazole Sodium 40 Mg Tablet.dr 40 Mg PO BIDBFRMEAL 60 Days Alprazolam 0.5 Mg Tablet 0.5 Mg PO PRN Q8HRS PRN Compazine (Prochlorperazine Maleate) 10 Mg Tablet 10 Mg PO Q8HRS Docusate Sodium 100 Mg Capsule 100 Mg PO PRN DAILY PRN Oxycodon-Acetaminophen 7.5-325 (Oxycodone Hcl/Acetaminophen) 1 Each Tablet 1 Tab PO PRN Q4HRS PRN Reported Ambien (Zolpidem Tartrate) 5 Mg Tablet 1 Tab PO QHS Levothyroxine Sodium 50 Mcg Tablet 1 Tab PO DAILY Allergies Allergies: Coded Allergies: sulfamethoxazole (Verified Adverse Reaction, Intermediate, GI UPSET, ) trimethoprim (Verified Adverse Reaction, Intermediate, GI UPSET, 03/01/17) Vitals Vitals Vital Signs Date Time Temp Pulse Resp B/P (MAP) Pulse Ox O2 Delivery O2 Flow Rate FiO2 04/20/17 21:59 Room Air 04/20/17 21:36 97.7 94 16 152/71 (98) 98 97.7 Labs Labs Laboratory Tests Test 04/20/17 18:20 04/20/17 20:00 Sodium Level 133 mmol/L (136-145) Potassium Level 3.6 mmol/L (3.5-5.1) Chloride Level 94 mmol/L (98-107) Carbon Dioxide Level 22 mmol/L (21-32) Anion Gap 17 (6-14) Blood Urea Nitrogen 45 mg/dL (7-20) Creatinine 1.1 mg/dL (0.6-1.0) Estimated GFR (Cockcroft-Gault) 50.8 BUN/Creatinine Ratio 41 (6-20) Glucose Level 99 mg/dL (70-99) Lactic Acid Level 2.7 mmol/L (0.4-2.0) Calcium Level 10.0 mg/dL (8.5-10.1) Total Bilirubin 0.6 mg/dL (0.2-1.0) Aspartate Amino Transf (AST/SGOT) 20 U/L (15-37) Alanine Aminotransferase (ALT/SGPT) 33 U/L (14-59) Alkaline Phosphatase 143 U/L (46-116) Total Protein 7.6 g/dL (6.4-8.2) Albumin 4.2 g/dL (3.4-5.0) Albumin/Globulin Ratio 1.2 (1.0-1.7) White Blood Count 98.5 x10^3/uL (4.0-11.0) Red Blood Count 4.28 x10^6/uL (3.50-5.40) Hemoglobin 12.4 g/dL (12.0-15.5) Hematocrit 38.4 % (36.0-47.0) Mean Corpuscular Volume 90 fL (79-100) Mean Corpuscular Hemoglobin 29 pg (25-35) Mean Corpuscular Hemoglobin Concent 32 g/dL (31-37) Red Cell Distribution Width 20.6 % (11.5-14.5) Platelet Count 253 x10^3/uL (140-400) Neutrophils (%) (Auto) 94 % (31-73) Lymphocytes (%) (Auto) 5 % (24-48) Monocytes (%) (Auto) 1 % (0-9) Eosinophils (%) (Auto) 0 % (0-3) Basophils (%) (Auto) 0 % (0-3) Neutrophils # (Auto) 91.0 x10^3uL (1.8-7.7) Lymphocytes # (Auto) 4.3 x10^3/uL (1.0-4.8) Monocytes # (Auto) 1.1 x10^3/uL (0.0-1.1) Eosinophils # (Auto) 0.0 x10^3/uL (0.0-0.7) Basophils # (Auto) 0.1 x10^3/uL (0.0-0.2) Laboratory Tests Test 04/20/17 18:20 04/20/17 20:00 Sodium Level 133 mmol/L (136-145) Potassium Level 3.6 mmol/L (3.5-5.1) Chloride Level 94 mmol/L (98-107) Carbon Dioxide Level 22 mmol/L (21-32) Anion Gap 17 (6-14) Blood Urea Nitrogen 45 mg/dL (7-20) Creatinine 1.1 mg/dL (0.6-1.0) Estimated GFR (Cockcroft-Gault) 50.8 BUN/Creatinine Ratio 41 (6-20) Glucose Level 99 mg/dL (70-99) Lactic Acid Level 2.7 mmol/L (0.4-2.0) Calcium Level 10.0 mg/dL (8.5-10.1) Total Bilirubin 0.6 mg/dL (0.2-1.0) Aspartate Amino Transf (AST/SGOT) 20 U/L (15-37) Alanine Aminotransferase (ALT/SGPT) 33 U/L (14-59) Alkaline Phosphatase 143 U/L (46-116) Total Protein 7.6 g/dL (6.4-8.2) Albumin 4.2 g/dL (3.4-5.0) Albumin/Globulin Ratio 1.2 (1.0-1.7) White Blood Count 98.5 x10^3/uL (4.0-11.0) Red Blood Count 4.28 x10^6/uL (3.50-5.40) Hemoglobin 12.4 g/dL (12.0-15.5) Hematocrit 38.4 % (36.0-47.0) Mean Corpuscular Volume 90 fL (79-100) Mean Corpuscular Hemoglobin 29 pg (25-35) Mean Corpuscular Hemoglobin Concent 32 g/dL (31-37) Red Cell Distribution Width 20.6 % (11.5-14.5) Platelet Count 253 x10^3/uL (140-400) Neutrophils (%) (Auto) 94 % (31-73) Lymphocytes (%) (Auto) 5 % (24-48) Monocytes (%) (Auto) 1 % (0-9) Eosinophils (%) (Auto) 0 % (0-3) Basophils (%) (Auto) 0 % (0-3) Neutrophils # (Auto) 91.0 x10^3uL (1.8-7.7) Lymphocytes # (Auto) 4.3 x10^3/uL (1.0-4.8) Monocytes # (Auto) 1.1 x10^3/uL (0.0-1.1) Eosinophils # (Auto) 0.0 x10^3/uL (0.0-0.7) Basophils # (Auto) 0.1 x10^3/uL (0.0-0.2) VTE Prophylaxis Ordered VTE Prophylaxis Devices: No VTE Pharmacological Prophylaxi: Yes Assessment/Plan Assessment/Plan Mrs Montemayor is a 61 y/o woman with recent diagnosis of 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 She is now undergoing palliative chemo with biweekly FOLFOX + Avastin, with neulasta support, having received her 3rd cycle this week. She presents to the hospital with general malaise, nausea and copious fluid output in the ostomy. She was found with tachycardia and labs consistent with dehydration, and was admitted for fluid resuscitation. She will receive NS boluses, followed by maintenance fluid. As she is presenting with hyponatremia, she will receive NS; Potassium is on the low end of normal; will replete in maintenance fluid, monitoring labs closely. She is not displaying any signs of sepsis at this time, although her WBC is high , which is in response to Neulasta. Tachycardia is very fluid responsive, confirming dehydration. no fevers of focal signs are noted. will hold further antibiotics for now. Nausea will be treated with zofran, IV or PO. Avoid Reglan given increase in transit time as a potential side effect. 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 Not sure if octreotide has been tried. Obtain GI consult Prophylaxis consists of lovenox and PPI. JEANNA ALBERT MD Apr 20, 2017 23:40
[2017-04-21 02:57] LABS: BILIRUBIN,URINE NEGATIVE (NEG); GLUCOSE,URINE NEGATIVE (NEG); NITRITE,URINE NEGATIVE (NEG); PH,URINE 5.5; PROTEIN,URINE NEGATIVE (NEG-TRACE); UROBILINOGEN,URINE 0.2 mg/dL (0.2 mg/dL)
[2017-04-21 03:00] VITALS: BP 135/78
[2017-04-21 03:13] LABS: BACTERIA,URINE FEW /HPF (0-FEW)
[2017-04-21 03:14] LABS: SQUAMOUS EPITHELIAL CELL,UR FEW /LPF
[2017-04-21] MEDS: LEVOTHYROXINE 50 MCG TABLET PO SCH (05:54)
[2017-04-21] MEDS: PROCHLORPERAZINE 5 MG TABLET. PO SCH ×3 (05:54→21:30)
[2017-04-21] MEDS: POTASSIUM CHLORIDE 20 MEQ in IV NORMAL SALINE 1000ML BAG 1,000 ML IV SCH ×2 (05:55→12:42)
[2017-04-21] MEDS ORDERED: PANTOPRAZOLE 40 MG TABLET.DR. PO SCH (07:30)
[2017-04-21 07:47] VITALS: BP 130/70
[2017-04-21] MEDS: PANTOPRAZOLE 40 MG TABLET.DR. PO SCH ×2 (08:08→16:47)
--- NOTE | 2017-04-21 08:23 | EKG ---
[facility] [address] [place] [address] Test Date: 2017-04-20 Test Time: 18:12:20 Pat Name: CATALINO COBOS Department: Room: [facility] Gender: F [employer]: : 1955 Requested By: CONNER COTTON Order Number: [id number] Reading MD: Reji Alexis Measurements Intervals [place] Rate: 106 P: 41 GA: 150 QRS: 33 QRSD: 84 T: 56 QT: 324 QTc: 432 Interpretive Statements SINUS TACHYCARDIA OTHERWISE NORMAL ECG RI6.01 Unconfirmed report Compared to ECG 04/08/2017 13:27:52 ST (T wave) deviation no longer present Electronically Signed On 04-21-2017 15:50:49 CDT by Reji Alexis
[2017-04-21 08:24] LABS: BASO # 0.3 x10^3/uL (0.0-0.2); BASO % 0 % (0-3); EOS % 0 % (0-3); HEMATOCRIT 33.3 % (36.0-47.0); HEMOGLOBIN 11.1 g/dL (12.0-15.5); LYMPH # 3.3 x10^3/uL (1.0-4.8); LYMPH % 3 % (24-48); MEAN CORPUSCULAR HEMOGLOBIN 29 pg (25-35); MEAN CORPUSCULAR HGB CONC 33 g/dL (31-37); MEAN CORPUSCULAR VOLUME 88 fL (79-100); MONO % 1 % (0-9); NEUT % 95 % (31-73); PLATELET COUNT 210 x10^3/uL (140-400); RED BLOOD COUNT 3.78 x10^6/uL (3.50-5.40); RED CELL DISTRIBUTION WIDTH 20.3 % (11.5-14.5)
[2017-04-21 08:33] LABS: WHITE BLOOD COUNT 99.1 x10^3/uL (4.0-11.0)
[2017-04-21 08:50] LABS: CALCIUM 7.7 mg/dL (8.5-10.1); GFR 56.7; POTASSIUM 4.1 mmol/L (3.5-5.1)
[2017-04-21 10:53] LABS: % EOS 1 % (0-5); PLT ESTIMATE ADEQUATE (ADEQUATE)
[2017-04-21 10:56] LABS: ANISOCYTOSIS PRESENT
[2017-04-21 10:57] LABS: OVALOCYTES FEW
[2017-04-21 11:00] VITALS: BP 151/59
[2017-04-21] MEDS: KETOROLAC 15 MG/ML VIAL. IV PRN (11:02)
--- NOTE | 2017-04-21 11:49 | PDOC2 ---
CONSULT Date of Consult Date of Consult DATE: 04/21/17 TIME: 11:35 Reason for Consult Reason for Consult: Colon cancer Referring Physician Referring Physician: Jaziel Identification/Chief Complaint Chief Complaint Nausea and diarrhea Problems: Source Source: Caregiver, Chart review, Patient History of Present Illness Reason for Visit: 61yo h/o metastatic colon cancer s/p resection with ileostomy on palliative FOLFOX C3D7. Has had recurrent diarrhea since ileostomy placement, worse with C1 chemo, better C2, and now present again with C3. Yesterday (D6) developed worsening watery ostomy output with dark color, non- bloody, and severe sub-sternal pain worse with eating. Has not been eating as consequence. No vomiting. No fevers or sick contacts. Was not on PPI. Past Medical History Cardiovascular: HTN Heme/Onc: Cancer (colon), Other (hx AML in 2007) Psych: Other Musculoskeletal: Osteoarthritis Endocrine: Hypothyroidism Past Surgical History Past Surgical History: Appendectomy, Cholecystectomy, Colon Resection, Other Family History Family History: Hypothyroidism Social History No ALCOHOL: none Drugs: None Lives: with Family Current Problem List Problem List Problems Medical Problems: (1) Abdominal pain Status: Acute (2) Lactic acidosis Status: Acute Current Medications Current Medications Current Medications Hydromorphone HCl (Dilaudid) 1 mg 1X ONCE IV Last administered on 04/20/17 18: 29; Start 04/20/17 at 18:00; Stop 04/20/17 at 18:03; Status DC Ondansetron HCl (Zofran) 4 mg STK-MED ONCE .ROUTE ; Start 04/20/17 at 18:06; Stop 04/20/17 at 18:07; Status DC Sodium Chloride (NORMAL SALINE FLUSH for STERILE FIELD) 10 ml STK-MED ONCE .ROUTE ; Start 04/20/17 at 18:07; Stop 04/20/17 at 18:08; Status DC Iohexol (Omnipaque 300 Mg/ml) 75 ml 1X ONCE IV Last administered on 04/20/17 19:10; Start 04/20/17 at 18:15; Stop 04/20/17 at 18:16; Status DC Info (Do NOT chart on this entry -- for MONITORING) 1 each PRN DAILY PRN MC SEE COMMENTS; Start 04/20/17 at 18:15; Stop 04/22/17 at 18:14 Ondansetron HCl (Zofran) 4 mg 1X ONCE IV Last administered on 04/20/17 18:29; Start 04/20/17 at 18:30; Stop 04/20/17 at 18:31; Status DC Hydromorphone HCl (Dilaudid) 1 mg 1X ONCE IV Last administered on 04/20/17 19: 33; Start 04/20/17 at 19:30; Stop 04/20/17 at 19:31; Status DC Metoclopramide HCl (Reglan) 10 mg 1X ONCE IV Last administered on 04/20/17 19: 32; Start 04/20/17 at 19:30; Stop 04/20/17 at 19:31; Status DC Sodium Chloride 1,000 ml @ 1,000 mls/hr 1X ONCE IV Last administered on 20:00; Start 04/20/17 at 20:00; Stop 04/20/17 at 20:59; Status DC Ondansetron HCl (Zofran) 4 mg PRN Q8HRS PRN IV NAUSEA/VOMITING; Start 04/20/17 at 20:45; Stop 04/21/17 at 01:14; Status DC Morphine Sulfate 4 mg PRN Q2HR PRN IV PAIN Last administered on 04/20/17 21:37 ; Start 04/20/17 at 20:45; Stop 04/20/17 at 23:09; Status DC Piperacillin Sod/ Tazobactam Sod 4.5 gm/Sodium Chloride 100 ml @ 200 mls/hr 1X ONCE IV Last administered on 04/20/17 21:40; Start 04/20/17 at 20:45; Stop 04/20/17 at 21:14; Status DC Ketorolac Tromethamine (Toradol) 15 mg PRN Q12HRS PRN IV PAIN Last administered on 04/21/17 11:02; Start 04/20/17 at 23:15; Stop 04/25/17 at 23:14 Alprazolam (Xanax) 0.5 mg PRN Q8HRS PRN PO ANXIETY / AGITATION; Start 04/20/17 at 23:15 Levothyroxine Sodium (Synthroid) 50 mcg DAILY06 PO Last administered on 05:54; Start 04/21/17 at 06:00 Ondansetron HCl (Zofran Odt) 4 mg PRN Q8HRS PRN PO nausea Last administered on 04/21/17 10:58; Start 04/20/17 at 23:15 Oxycodone/ Acetaminophen (Percocet 5/325) 1 tab PRN Q6HRS PRN PO pain Last administered on 04/21/17 04:09; Start 04/20/17 at 23:15 Pantoprazole Sodium (Protonix) 40 mg BIDBFRMEAL PO Last administered on 08:08; Start 04/21/17 at 07:30 Zolpidem Tartrate (Ambien) 5 mg QHS PO Last administered on 04/20/17 23:27; Start 04/20/17 at 23:15 Prochlorperazine Maleate (Compazine) 10 mg Q8HRS PO Last administered on 05:54; Start 04/21/17 at 06:00 Potassium Chloride 20 meq/ Sodium Chloride 1,010 ml @ 150 mls/hr Q6H44M IV Last administered on 04/21/17 05:55; Start 04/20/17 at 23:30 Pantoprazole Sodium (Protonix) 40 mg DAILYAC PO ; Start 04/21/17 at 07:30; Stop 04/21/17 at 07:30; Status DC Active Scripts Active Zofran Odt (Ondansetron) 4 Mg Tab.rapdis 1 Tab SL Q8HRS Percocet 5-325 Mg Tablet (Oxycodone/Acetaminophen) 1 Each Tablet 1-2 Tab PO Q4- 6HRS Levaquin (Levofloxacin) 500 Mg Tablet 1 Tab PO DAILY Zofran Odt (Ondansetron) 4 Mg Tab.rapdis 1 Tab SL Q8HRS Pantoprazole Sodium 40 Mg Tablet.dr 40 Mg PO BIDBFRMEAL 60 Days Alprazolam 0.5 Mg Tablet 0.5 Mg PO PRN Q8HRS PRN Compazine (Prochlorperazine Maleate) 10 Mg Tablet 10 Mg PO Q8HRS Docusate Sodium 100 Mg Capsule 100 Mg PO PRN DAILY PRN Oxycodon-Acetaminophen 7.5-325 (Oxycodone Hcl/Acetaminophen) 1 Each Tablet 1 Tab PO PRN Q4HRS PRN Reported Ambien (Zolpidem Tartrate) 5 Mg Tablet 1 Tab PO QHS Levothyroxine Sodium 50 Mcg Tablet 1 Tab PO DAILY Allergies Allergies: Coded Allergies: sulfamethoxazole (Verified Adverse Reaction, Intermediate, GI UPSET, ) trimethoprim (Verified Adverse Reaction, Intermediate, GI UPSET, 03/01/17) ROS General: YES: Fatigue, Malaise PSYCHOLOGICAL ROS: No: Anxiety Eyes: No Blurry vision HEENT: No: Heacaches ALLERGY AND IMMUNOLOGY: No: Hives Hematological and Lymphatic: No: Swollen Lymph Nodes Respiratory: No: Cough Cardiovascular: yes Chest Pain Gastrointestinal: Yes Nausea, Yes Abdominal Pain, Yes Diarrhea Genitourinary: No Dysuria Musculoskeletal: No Gait Disturbance Neurological: No Behavorial Changes Skin: No Dry Skin Physical Exam General: Alert, Oriented X3 HEENT: Atraumatic Lungs: Clear to auscultation Heart: Regular rate Abdomen: Soft, No tenderness Extremities: No clubbing Skin: No rashes Neuro: Normal speech Psych/Mental Status: Mental status NL MUSCULOSKELETAL: No joint tenderness Vitals VITALS Vital Signs Date Time Temp Pulse Resp B/P (MAP) Pulse Ox O2 Delivery O2 Flow Rate FiO2 04/21/17 08:00 Room Air 04/21/17 07:47 97.9 72 20 130/70 (90) 98 97.9 Labs Labs Laboratory Tests Test 04/20/17 18:20 04/20/17 20:00 04/21/17 02:45 04/21/17 08:15 Sodium Level 133 mmol/L (136-145) 132 mmol/L (136-145) Potassium Level 3.6 mmol/L (3.5-5.1) 4.1 mmol/L (3.5-5.1) Chloride Level 94 mmol/L (98-107) 101 mmol/L (98-107) Carbon Dioxide Level 22 mmol/L (21-32) 24 mmol/L (21-32) Anion Gap 17 (6-14) 7 (6-14) Blood Urea Nitrogen 45 mg/dL (7-20) 40 mg/dL (7-20) Creatinine 1.1 mg/dL (0.6-1.0) 1.0 mg/dL (0.6-1.0) Estimated GFR (Cockcroft-Gault) 50.8 56.7 BUN/Creatinine Ratio 41 (6-20) Glucose Level 99 mg/dL (70-99) 78 mg/dL (70-99) Lactic Acid Level 2.7 mmol/L (0.4-2.0) Calcium Level 10.0 mg/dL (8.5-10.1) 7.7 mg/dL (8.5-10.1) Total Bilirubin 0.6 mg/dL (0.2-1.0) Aspartate Amino Transf (AST/SGOT) 20 U/L (15-37) Alanine Aminotransferase (ALT/SGPT) 33 U/L (14-59) Alkaline Phosphatase 143 U/L (46-116) Total Protein 7.6 g/dL (6.4-8.2) Albumin 4.2 g/dL (3.4-5.0) Albumin/Globulin Ratio 1.2 (1.0-1.7) White Blood Count 98.5 x10^3/uL (4.0-11.0) 99.1 x10^3/uL (4.0-11.0) Red Blood Count 4.28 x10^6/uL (3.50-5.40) 3.78 x10^6/uL (3.50-5.40) Hemoglobin 12.4 g/dL (12.0-15.5) 11.1 g/dL (12.0-15.5) Hematocrit 38.4 % (36.0-47.0) 33.3 % (36.0-47.0) Mean Corpuscular Volume 90 fL (79-100) 88 fL (79-100) Mean Corpuscular Hemoglobin 29 pg (25-35) 29 pg (25-35) Mean Corpuscular Hemoglobin Concent 32 g/dL (31-37) 33 g/dL (31-37) Red Cell Distribution Width 20.6 % (11.5-14.5) 20.3 % (11.5-14.5) Platelet Count 253 x10^3/uL (140-400) 210 x10^3/uL (140-400) Neutrophils (%) (Auto) 94 % (31-73) 95 % (31-73) Lymphocytes (%) (Auto) 5 % (24-48) 3 % (24-48) Monocytes (%) (Auto) 1 % (0-9) 1 % (0-9) Eosinophils (%) (Auto) 0 % (0-3) 0 % (0-3) Basophils (%) (Auto) 0 % (0-3) 0 % (0-3) Neutrophils # (Auto) 91.0 x10^3uL (1.8-7.7) 94.4 x10^3uL (1.8-7.7) Lymphocytes # (Auto) 4.3 x10^3/uL (1.0-4.8) 3.3 x10^3/uL (1.0-4.8) Monocytes # (Auto) 1.1 x10^3/uL (0.0-1.1) 0.9 x10^3/uL (0.0-1.1) Eosinophils # (Auto) 0.0 x10^3/uL (0.0-0.7) 0.3 x10^3/uL (0.0-0.7) Basophils # (Auto) 0.1 x10^3/uL (0.0-0.2) 0.3 x10^3/uL (0.0-0.2) Urine Collection Type Unknown Urine Color Yellow Urine Clarity Clear Urine pH 5.5 Urine Specific [place] >=1.030 Urine Protein Negative mg/dL (NEG-TRACE) Urine Glucose (UA) Negative mg/dL (NEG) Urine Ketones (Stick) Negative mg/dL (NEG) Urine Blood Negative (NEG) Urine Nitrite Negative (NEG) Urine Bilirubin Negative (NEG) Urine Urobilinogen Dipstick 0.2 mg/dL (0.2 mg/dL) Urine Leukocyte Esterase Trace (NEG) Urine RBC 3-5 /HPF (0-2) Urine WBC 1-4 /HPF (0-4) Urine Squamous Epithelial Cells Few /LPF Urine Bacteria Few /HPF (0-FEW) Urine Hyaline Casts Few /HPF Segmented Neutrophils % 76 % (35-66) Band Neutrophils % 16 % (0-9) Lymphocytes % 5 % (24-48) Monocytes % 2 % (0-10) Eosinophils % 1 % (0-5) Dohle Bodies Few Platelet Estimate Adequate (ADEQUATE) Anisocytosis Present Ovalocytes Few Magnesium Level 1.6 mg/dL (1.8-2.4) Laboratory Tests Test 04/20/17 18:20 04/20/17 20:00 04/21/17 02:45 04/21/17 08:15 Sodium Level 133 mmol/L (136-145) 132 mmol/L (136-145) Potassium Level 3.6 mmol/L (3.5-5.1) 4.1 mmol/L (3.5-5.1) Chloride Level 94 mmol/L (98-107) 101 mmol/L (98-107) Carbon Dioxide Level 22 mmol/L (21-32) 24 mmol/L (21-32) Anion Gap 17 (6-14) 7 (6-14) Blood Urea Nitrogen 45 mg/dL (7-20) 40 mg/dL (7-20) Creatinine 1.1 mg/dL (0.6-1.0) 1.0 mg/dL (0.6-1.0) Estimated GFR (Cockcroft-Gault) 50.8 56.7 BUN/Creatinine Ratio 41 (6-20) Glucose Level 99 mg/dL (70-99) 78 mg/dL (70-99) Lactic Acid Level 2.7 mmol/L (0.4-2.0) Calcium Level 10.0 mg/dL (8.5-10.1) 7.7 mg/dL (8.5-10.1) Total Bilirubin 0.6 mg/dL (0.2-1.0) Aspartate Amino Transf (AST/SGOT) 20 U/L (15-37) Alanine Aminotransferase (ALT/SGPT) 33 U/L (14-59) Alkaline Phosphatase 143 U/L (46-116) Total Protein 7.6 g/dL (6.4-8.2) Albumin 4.2 g/dL (3.4-5.0) Albumin/Globulin Ratio 1.2 (1.0-1.7) White Blood Count 98.5 x10^3/uL (4.0-11.0) 99.1 x10^3/uL (4.0-11.0) Red Blood Count 4.28 x10^6/uL (3.50-5.40) 3.78 x10^6/uL (3.50-5.40) Hemoglobin 12.4 g/dL (12.0-15.5) 11.1 g/dL (12.0-15.5) Hematocrit 38.4 % (36.0-47.0) 33.3 % (36.0-47.0) Mean Corpuscular Volume 90 fL (79-100) 88 fL (79-100) Mean Corpuscular Hemoglobin 29 pg (25-35) 29 pg (25-35) Mean Corpuscular Hemoglobin Concent 32 g/dL (31-37) 33 g/dL (31-37) Red Cell Distribution Width 20.6 % (11.5-14.5) 20.3 % (11.5-14.5) Platelet Count 253 x10^3/uL (140-400) 210 x10^3/uL (140-400) Neutrophils (%) (Auto) 94 % (31-73) 95 % (31-73) Lymphocytes (%) (Auto) 5 % (24-48) 3 % (24-48) Monocytes (%) (Auto) 1 % (0-9) 1 % (0-9) Eosinophils (%) (Auto) 0 % (0-3) 0 % (0-3) Basophils (%) (Auto) 0 % (0-3) 0 % (0-3) Neutrophils # (Auto) 91.0 x10^3uL (1.8-7.7) 94.4 x10^3uL (1.8-7.7) Lymphocytes # (Auto) 4.3 x10^3/uL (1.0-4.8) 3.3 x10^3/uL (1.0-4.8) Monocytes # (Auto) 1.1 x10^3/uL (0.0-1.1) 0.9 x10^3/uL (0.0-1.1) Eosinophils # (Auto) 0.0 x10^3/uL (0.0-0.7) 0.3 x10^3/uL (0.0-0.7) Basophils # (Auto) 0.1 x10^3/uL (0.0-0.2) 0.3 x10^3/uL (0.0-0.2) Urine Collection Type Unknown Urine Color Yellow Urine Clarity Clear Urine pH 5.5 Urine Specific [place] >=1.030 Urine Protein Negative mg/dL (NEG-TRACE) Urine Glucose (UA) Negative mg/dL (NEG) Urine Ketones (Stick) Negative mg/dL (NEG) Urine Blood Negative (NEG) Urine Nitrite Negative (NEG) Urine Bilirubin Negative (NEG) Urine Urobilinogen Dipstick 0.2 mg/dL (0.2 mg/dL) Urine Leukocyte Esterase Trace (NEG) Urine RBC 3-5 /HPF (0-2) Urine WBC 1-4 /HPF (0-4) Urine Squamous Epithelial Cells Few /LPF Urine Bacteria Few /HPF (0-FEW) Urine Hyaline Casts Few /HPF Segmented Neutrophils % 76 % (35-66) Band Neutrophils % 16 % (0-9) Lymphocytes % 5 % (24-48) Monocytes % 2 % (0-10) Eosinophils % 1 % (0-5) Dohle Bodies Few Platelet Estimate Adequate (ADEQUATE) Anisocytosis Present Ovalocytes Few Magnesium Level 1.6 mg/dL (1.8-2.4) Images Images CT A/P reviewed personally and shows stable small peritoneal implants. No new metastatic disease present. No abscess or bowel wall thickening. Assessment/Plan Assessment/Plan Impression: - Diarrhea - Leukocytosis - Acute dehydration - Nausea with probable GERD - Metastatic colon cancer C3D7 FOLFOX Recommend: Leukocytosis prominent and, while may be related to Neulasta and recent inflammation, infectious causes of her diarrhea should also be evaluated. Dumping syndrome after ileostomy placement is also likely contributing and reflux symptoms probably responsible for her significant nausea, exacerbated by steroids given during chemotherapy. - Check C Diff, stool cultures, O&P - If C Diff negative, please start loperamide 4mg q6hrs - Start PPI - Continue aggressive hydration There have been discussions of ostomy reversal. This may be reasonable to consider, but would not want to do this admission while she is mid-cycle chemotherapy. Dr Ovlera will take over tomorrow. Please call with questions or concerns. MIKE BILLS MD Apr 21, 2017 11:49
[2017-04-21] MEDS ORDERED: MAGNESIUM SULFATE 2GM 50 ML IV ONE (12:00)
[2017-04-21] MEDS ORDERED: ACETAMINOPHEN 325 MG TABLET. PO PRN (12:00)
[2017-04-21] MEDS ORDERED: traMADol 50 MG TABLET PO PRN (12:00)
[2017-04-21] MEDS ORDERED: DOCUSATE SODIUM 100 MG CAPSULE. PO PRN (12:00)
[2017-04-21] MEDS ORDERED: ONDANSETRON PF 4 MG/2 ML VIAL. IV PRN (12:00)
[2017-04-21] MEDS ORDERED: hydrALAZINE 20 MG/ML VIAL. IVP PRN (12:00)
--- NOTE | 2017-04-21 12:37 | PDOC2 ---
CONSULT - DR. NG CHIEF COMPLAINT Chief Complaint diarrhea Problems: HPI HPI 61 y/o female w/ h/o colon cancer w/ widespread intraabdominal mets, s/p partial colectomy and then expl lap w/ ileostomyo n palliative FOLFOX C3D7. Has had recurrent diarrhea since ileostomy placement, worse with C1 chemo, better C2, and now present again with C3. Yesterday (D6) developed worsening watery ostomy output with dark color, non- bloody, and severe sub-sternal pain worse with eating. Has not been eating as consequence. No vomiting. No fevers or sick contacts. Was not on PPI. Tried Imodium for a few days, no help. No n/v, just not hungry. PMH PMH PMH: PMH: HTN, AML, neuropathy, OA, hypothyroidism, appendectomy, cholecystectomy, colon resection, ileostomy FH: Family History: Cancer, Other (hypothyroidism, COPD) Social History: Smoke: Quit ALCOHOL: none Drugs: None ROS ROS GEN: Denies fevers, chills, sweats HEENT: Denies blurred vision, sore throat CV: Denies chest pain RESP: Denies shortness of air, cough GI: Per HPI : Denies hematuria, dysuria ENDO: +weight loss NEURO: Denies confusion, dizziness MSK: +weakness SKIN: Denies jaundice, pruritus [place] Vital Signs Date Time Temp Pulse Resp B/P (MAP) Pulse Ox O2 Delivery O2 Flow Rate FiO2 04/21/17 11:00 98.2 67 18 151/59 (89) 96 Room Air 98.2 Physical Exam PE: GEN: NAD, sitting on edge of bed HEENT: Atraumatic, PERRL LUNGS: CTAB HEART: RRR ABD: surgical scars, ileostomy RLQ w/ watery stool, tenderness mostly epigastric EXTREMITY: No edema SKIN: No rashes, no jaundice NEURO/PSYCH: A & O 3 LABS Labs Laboratory Tests Test 04/20/17 18:20 04/20/17 20:00 04/21/17 02:45 04/21/17 08:15 Sodium Level 133 mmol/L (136-145) 132 mmol/L (136-145) Potassium Level 3.6 mmol/L (3.5-5.1) 4.1 mmol/L (3.5-5.1) Chloride Level 94 mmol/L (98-107) 101 mmol/L (98-107) Carbon Dioxide Level 22 mmol/L (21-32) 24 mmol/L (21-32) Anion Gap 17 (6-14) 7 (6-14) Blood Urea Nitrogen 45 mg/dL (7-20) 40 mg/dL (7-20) Creatinine 1.1 mg/dL (0.6-1.0) 1.0 mg/dL (0.6-1.0) Estimated GFR (Cockcroft-Gault) 50.8 56.7 BUN/Creatinine Ratio 41 (6-20) Glucose Level 99 mg/dL (70-99) 78 mg/dL (70-99) Lactic Acid Level 2.7 mmol/L (0.4-2.0) Calcium Level 10.0 mg/dL (8.5-10.1) 7.7 mg/dL (8.5-10.1) Total Bilirubin 0.6 mg/dL (0.2-1.0) Aspartate Amino Transf (AST/SGOT) 20 U/L (15-37) Alanine Aminotransferase (ALT/SGPT) 33 U/L (14-59) Alkaline Phosphatase 143 U/L (46-116) Total Protein 7.6 g/dL (6.4-8.2) Albumin 4.2 g/dL (3.4-5.0) Albumin/Globulin Ratio 1.2 (1.0-1.7) White Blood Count 98.5 x10^3/uL (4.0-11.0) 99.1 x10^3/uL (4.0-11.0) Red Blood Count 4.28 x10^6/uL (3.50-5.40) 3.78 x10^6/uL (3.50-5.40) Hemoglobin 12.4 g/dL (12.0-15.5) 11.1 g/dL (12.0-15.5) Hematocrit 38.4 % (36.0-47.0) 33.3 % (36.0-47.0) Mean Corpuscular Volume 90 fL (79-100) 88 fL (79-100) Mean Corpuscular Hemoglobin 29 pg (25-35) 29 pg (25-35) Mean Corpuscular Hemoglobin Concent 32 g/dL (31-37) 33 g/dL (31-37) Red Cell Distribution Width 20.6 % (11.5-14.5) 20.3 % (11.5-14.5) Platelet Count 253 x10^3/uL (140-400) 210 x10^3/uL (140-400) Neutrophils (%) (Auto) 94 % (31-73) 95 % (31-73) Lymphocytes (%) (Auto) 5 % (24-48) 3 % (24-48) Monocytes (%) (Auto) 1 % (0-9) 1 % (0-9) Eosinophils (%) (Auto) 0 % (0-3) 0 % (0-3) Basophils (%) (Auto) 0 % (0-3) 0 % (0-3) Neutrophils # (Auto) 91.0 x10^3uL (1.8-7.7) 94.4 x10^3uL (1.8-7.7) Lymphocytes # (Auto) 4.3 x10^3/uL (1.0-4.8) 3.3 x10^3/uL (1.0-4.8) Monocytes # (Auto) 1.1 x10^3/uL (0.0-1.1) 0.9 x10^3/uL (0.0-1.1) Eosinophils # (Auto) 0.0 x10^3/uL (0.0-0.7) 0.3 x10^3/uL (0.0-0.7) Basophils # (Auto) 0.1 x10^3/uL (0.0-0.2) 0.3 x10^3/uL (0.0-0.2) Urine Collection Type Unknown Urine Color Yellow Urine Clarity Clear Urine pH 5.5 Urine Specific [place] >=1.030 Urine Protein Negative mg/dL (NEG-TRACE) Urine Glucose (UA) Negative mg/dL (NEG) Urine Ketones (Stick) Negative mg/dL (NEG) Urine Blood Negative (NEG) Urine Nitrite Negative (NEG) Urine Bilirubin Negative (NEG) Urine Urobilinogen Dipstick 0.2 mg/dL (0.2 mg/dL) Urine Leukocyte Esterase Trace (NEG) Urine RBC 3-5 /HPF (0-2) Urine WBC 1-4 /HPF (0-4) Urine Squamous Epithelial Cells Few /LPF Urine Bacteria Few /HPF (0-FEW) Urine Hyaline Casts Few /HPF Segmented Neutrophils % 76 % (35-66) Band Neutrophils % 16 % (0-9) Lymphocytes % 5 % (24-48) Monocytes % 2 % (0-10) Eosinophils % 1 % (0-5) Dohle Bodies Few Platelet Estimate Adequate (ADEQUATE) Anisocytosis Present Ovalocytes Few Magnesium Level 1.6 mg/dL (1.8-2.4) IMAGING Imaging IMPRESSION: 1. Postsurgical changes with a presumed ileostomy in the right lower quadrant. 2. Unchanged tiny nodular opacities in the right paracolic gutter raising the possibility of abdominal carcinomatosis. 3. Unchanged streaky deep pelvic densities may be due to scarring. 4. No new abdominal or pelvic abnormality is detected. ASSESSMENT & PLAN Assessment & Plan A/P: Metastatic colon cancer on chemo S/p partial colon resection, then expl lap w/ ileostomy Watery stools through ileostomy - agree with check c diff Weakness, decreased PO intake Reflux-agree with ppi PANCHITO NG MD Apr 21, 2017 12:37
[2017-04-21] MEDS: MORPHINE SULFATE 2 MG/ML DISP.SYRIN. IV PRN ×3 (13:21→20:28)
--- NOTE | 2017-04-21 14:11 | PDOC ---
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 hold for now. pain control History of Present Illness History of Present Illness still feels bad, severe nausea low Mag dark liquid stool in colostomy Vitals Vitals Vital Signs Date Time Temp Pulse Resp B/P (MAP) Pulse Ox O2 Delivery O2 Flow Rate FiO2 04/21/17 13:21 Room Air 04/21/17 11:00 98.2 67 18 151/59 (89) 96 98.2 Physical Exam General: Alert, Oriented X3 Heart: Regular rate Lungs: Clear, Other Abdomen: Soft, No tenderness, Other (RLQ colostomy dark stool, liquid ) Extremities: No clubbing Skin: No rashes Labs LABS Laboratory Tests Test 04/20/17 18:20 04/20/17 20:00 04/21/17 02:45 04/21/17 08:15 Sodium Level 133 mmol/L (136-145) 132 mmol/L (136-145) Potassium Level 3.6 mmol/L (3.5-5.1) 4.1 mmol/L (3.5-5.1) Chloride Level 94 mmol/L (98-107) 101 mmol/L (98-107) Carbon Dioxide Level 22 mmol/L (21-32) 24 mmol/L (21-32) Anion Gap 17 (6-14) 7 (6-14) Blood Urea Nitrogen 45 mg/dL (7-20) 40 mg/dL (7-20) Creatinine 1.1 mg/dL (0.6-1.0) 1.0 mg/dL (0.6-1.0) Estimated GFR (Cockcroft-Gault) 50.8 56.7 BUN/Creatinine Ratio 41 (6-20) Glucose Level 99 mg/dL (70-99) 78 mg/dL (70-99) Lactic Acid Level 2.7 mmol/L (0.4-2.0) Calcium Level 10.0 mg/dL (8.5-10.1) 7.7 mg/dL (8.5-10.1) Total Bilirubin 0.6 mg/dL (0.2-1.0) Aspartate Amino Transf (AST/SGOT) 20 U/L (15-37) Alanine Aminotransferase (ALT/SGPT) 33 U/L (14-59) Alkaline Phosphatase 143 U/L (46-116) Total Protein 7.6 g/dL (6.4-8.2) Albumin 4.2 g/dL (3.4-5.0) Albumin/Globulin Ratio 1.2 (1.0-1.7) White Blood Count 98.5 x10^3/uL (4.0-11.0) 99.1 x10^3/uL (4.0-11.0) Red Blood Count 4.28 x10^6/uL (3.50-5.40) 3.78 x10^6/uL (3.50-5.40) Hemoglobin 12.4 g/dL (12.0-15.5) 11.1 g/dL (12.0-15.5) Hematocrit 38.4 % (36.0-47.0) 33.3 % (36.0-47.0) Mean Corpuscular Volume 90 fL (79-100) 88 fL (79-100) Mean Corpuscular Hemoglobin 29 pg (25-35) 29 pg (25-35) Mean Corpuscular Hemoglobin Concent 32 g/dL (31-37) 33 g/dL (31-37) Red Cell Distribution Width 20.6 % (11.5-14.5) 20.3 % (11.5-14.5) Platelet Count 253 x10^3/uL (140-400) 210 x10^3/uL (140-400) Neutrophils (%) (Auto) 94 % (31-73) 95 % (31-73) Lymphocytes (%) (Auto) 5 % (24-48) 3 % (24-48) Monocytes (%) (Auto) 1 % (0-9) 1 % (0-9) Eosinophils (%) (Auto) 0 % (0-3) 0 % (0-3) Basophils (%) (Auto) 0 % (0-3) 0 % (0-3) Neutrophils # (Auto) 91.0 x10^3uL (1.8-7.7) 94.4 x10^3uL (1.8-7.7) Lymphocytes # (Auto) 4.3 x10^3/uL (1.0-4.8) 3.3 x10^3/uL (1.0-4.8) Monocytes # (Auto) 1.1 x10^3/uL (0.0-1.1) 0.9 x10^3/uL (0.0-1.1) Eosinophils # (Auto) 0.0 x10^3/uL (0.0-0.7) 0.3 x10^3/uL (0.0-0.7) Basophils # (Auto) 0.1 x10^3/uL (0.0-0.2) 0.3 x10^3/uL (0.0-0.2) Urine Collection Type Unknown Urine Color Yellow Urine Clarity Clear Urine pH 5.5 Urine Specific [place] >=1.030 Urine Protein Negative mg/dL (NEG-TRACE) Urine Glucose (UA) Negative mg/dL (NEG) Urine Ketones (Stick) Negative mg/dL (NEG) Urine Blood Negative (NEG) Urine Nitrite Negative (NEG) Urine Bilirubin Negative (NEG) Urine Urobilinogen Dipstick 0.2 mg/dL (0.2 mg/dL) Urine Leukocyte Esterase Trace (NEG) Urine RBC 3-5 /HPF (0-2) Urine WBC 1-4 /HPF (0-4) Urine Squamous Epithelial Cells Few /LPF Urine Bacteria Few /HPF (0-FEW) Urine Hyaline Casts Few /HPF Segmented Neutrophils % 76 % (35-66) Band Neutrophils % 16 % (0-9) Lymphocytes % 5 % (24-48) Monocytes % 2 % (0-10) Eosinophils % 1 % (0-5) Dohle Bodies Few Platelet Estimate Adequate (ADEQUATE) Anisocytosis Present Ovalocytes Few Magnesium Level 1.6 mg/dL (1.8-2.4) Review of Systems Review of Systems no fever, chills, sob, or chest pain Assessment and Plan Assessmemt and Plan Problems Medical Problems: (1) Abdominal pain Status: Acute (2) Lactic acidosis Status: Acute Problems: Comment Review of Relevant I have reviewed the following items siena (where applicable) has been applied. Labs Laboratory Tests Test 04/20/17 18:20 04/20/17 20:00 04/21/17 02:45 04/21/17 08:15 Sodium Level 133 mmol/L (136-145) 132 mmol/L (136-145) Potassium Level 3.6 mmol/L (3.5-5.1) 4.1 mmol/L (3.5-5.1) Chloride Level 94 mmol/L (98-107) 101 mmol/L (98-107) Carbon Dioxide Level 22 mmol/L (21-32) 24 mmol/L (21-32) Anion Gap 17 (6-14) 7 (6-14) Blood Urea Nitrogen 45 mg/dL (7-20) 40 mg/dL (7-20) Creatinine 1.1 mg/dL (0.6-1.0) 1.0 mg/dL (0.6-1.0) Estimated GFR (Cockcroft-Gault) 50.8 56.7 BUN/Creatinine Ratio 41 (6-20) Glucose Level 99 mg/dL (70-99) 78 mg/dL (70-99) Lactic Acid Level 2.7 mmol/L (0.4-2.0) Calcium Level 10.0 mg/dL (8.5-10.1) 7.7 mg/dL (8.5-10.1) Total Bilirubin 0.6 mg/dL (0.2-1.0) Aspartate Amino Transf (AST/SGOT) 20 U/L (15-37) Alanine Aminotransferase (ALT/SGPT) 33 U/L (14-59) Alkaline Phosphatase 143 U/L (46-116) Total Protein 7.6 g/dL (6.4-8.2) Albumin 4.2 g/dL (3.4-5.0) Albumin/Globulin Ratio 1.2 (1.0-1.7) White Blood Count 98.5 x10^3/uL (4.0-11.0) 99.1 x10^3/uL (4.0-11.0) Red Blood Count 4.28 x10^6/uL (3.50-5.40) 3.78 x10^6/uL (3.50-5.40) Hemoglobin 12.4 g/dL (12.0-15.5) 11.1 g/dL (12.0-15.5) Hematocrit 38.4 % (36.0-47.0) 33.3 % (36.0-47.0) Mean Corpuscular Volume 90 fL (79-100) 88 fL (79-100) Mean Corpuscular Hemoglobin 29 pg (25-35) 29 pg (25-35) Mean Corpuscular Hemoglobin Concent 32 g/dL (31-37) 33 g/dL (31-37) Red Cell Distribution Width 20.6 % (11.5-14.5) 20.3 % (11.5-14.5) Platelet Count 253 x10^3/uL (140-400) 210 x10^3/uL (140-400) Neutrophils (%) (Auto) 94 % (31-73) 95 % (31-73) Lymphocytes (%) (Auto) 5 % (24-48) 3 % (24-48) Monocytes (%) (Auto) 1 % (0-9) 1 % (0-9) Eosinophils (%) (Auto) 0 % (0-3) 0 % (0-3) Basophils (%) (Auto) 0 % (0-3) 0 % (0-3) Neutrophils # (Auto) 91.0 x10^3uL (1.8-7.7) 94.4 x10^3uL (1.8-7.7) Lymphocytes # (Auto) 4.3 x10^3/uL (1.0-4.8) 3.3 x10^3/uL (1.0-4.8) Monocytes # (Auto) 1.1 x10^3/uL (0.0-1.1) 0.9 x10^3/uL (0.0-1.1) Eosinophils # (Auto) 0.0 x10^3/uL (0.0-0.7) 0.3 x10^3/uL (0.0-0.7) Basophils # (Auto) 0.1 x10^3/uL (0.0-0.2) 0.3 x10^3/uL (0.0-0.2) Urine Collection Type Unknown Urine Color Yellow Urine Clarity Clear Urine pH 5.5 Urine Specific [place] >=1.030 Urine Protein Negative mg/dL (NEG-TRACE) Urine Glucose (UA) Negative mg/dL (NEG) Urine Ketones (Stick) Negative mg/dL (NEG) Urine Blood Negative (NEG) Urine Nitrite Negative (NEG) Urine Bilirubin Negative (NEG) Urine Urobilinogen Dipstick 0.2 mg/dL (0.2 mg/dL) Urine Leukocyte Esterase Trace (NEG) Urine RBC 3-5 /HPF (0-2) Urine WBC 1-4 /HPF (0-4) Urine Squamous Epithelial Cells Few /LPF Urine Bacteria Few /HPF (0-FEW) Urine Hyaline Casts Few /HPF Segmented Neutrophils % 76 % (35-66) Band Neutrophils % 16 % (0-9) Lymphocytes % 5 % (24-48) Monocytes % 2 % (0-10) Eosinophils % 1 % (0-5) Dohle Bodies Few Platelet Estimate Adequate (ADEQUATE) Anisocytosis Present Ovalocytes Few Magnesium Level 1.6 mg/dL (1.8-2.4) Laboratory Tests Test 04/20/17 18:20 04/20/17 20:00 04/21/17 02:45 04/21/17 08:15 Sodium Level 133 mmol/L (136-145) 132 mmol/L (136-145) Potassium Level 3.6 mmol/L (3.5-5.1) 4.1 mmol/L (3.5-5.1) Chloride Level 94 mmol/L (98-107) 101 mmol/L (98-107) Carbon Dioxide Level 22 mmol/L (21-32) 24 mmol/L (21-32) Anion Gap 17 (6-14) 7 (6-14) Blood Urea Nitrogen 45 mg/dL (7-20) 40 mg/dL (7-20) Creatinine 1.1 mg/dL (0.6-1.0) 1.0 mg/dL (0.6-1.0) Estimated GFR (Cockcroft-Gault) 50.8 56.7 BUN/Creatinine Ratio 41 (6-20) Glucose Level 99 mg/dL (70-99) 78 mg/dL (70-99) Lactic Acid Level 2.7 mmol/L (0.4-2.0) Calcium Level 10.0 mg/dL (8.5-10.1) 7.7 mg/dL (8.5-10.1) Total Bilirubin 0.6 mg/dL (0.2-1.0) Aspartate Amino Transf (AST/SGOT) 20 U/L (15-37) Alanine Aminotransferase (ALT/SGPT) 33 U/L (14-59) Alkaline Phosphatase 143 U/L (46-116) Total Protein 7.6 g/dL (6.4-8.2) Albumin 4.2 g/dL (3.4-5.0) Albumin/Globulin Ratio 1.2 (1.0-1.7) White Blood Count 98.5 x10^3/uL (4.0-11.0) 99.1 x10^3/uL (4.0-11.0) Red Blood Count 4.28 x10^6/uL (3.50-5.40) 3.78 x10^6/uL (3.50-5.40) Hemoglobin 12.4 g/dL (12.0-15.5) 11.1 g/dL (12.0-15.5) Hematocrit 38.4 % (36.0-47.0) 33.3 % (36.0-47.0) Mean Corpuscular Volume 90 fL (79-100) 88 fL (79-100) Mean Corpuscular Hemoglobin 29 pg (25-35) 29 pg (25-35) Mean Corpuscular Hemoglobin Concent 32 g/dL (31-37) 33 g/dL (31-37) Red Cell Distribution Width 20.6 % (11.5-14.5) 20.3 % (11.5-14.5) Platelet Count 253 x10^3/uL (140-400) 210 x10^3/uL (140-400) Neutrophils (%) (Auto) 94 % (31-73) 95 % (31-73) Lymphocytes (%) (Auto) 5 % (24-48) 3 % (24-48) Monocytes (%) (Auto) 1 % (0-9) 1 % (0-9) Eosinophils (%) (Auto) 0 % (0-3) 0 % (0-3) Basophils (%) (Auto) 0 % (0-3) 0 % (0-3) Neutrophils # (Auto) 91.0 x10^3uL (1.8-7.7) 94.4 x10^3uL (1.8-7.7) Lymphocytes # (Auto) 4.3 x10^3/uL (1.0-4.8) 3.3 x10^3/uL (1.0-4.8) Monocytes # (Auto) 1.1 x10^3/uL (0.0-1.1) 0.9 x10^3/uL (0.0-1.1) Eosinophils # (Auto) 0.0 x10^3/uL (0.0-0.7) 0.3 x10^3/uL (0.0-0.7) Basophils # (Auto) 0.1 x10^3/uL (0.0-0.2) 0.3 x10^3/uL (0.0-0.2) Urine Collection Type Unknown Urine Color Yellow Urine Clarity Clear Urine pH 5.5 Urine Specific [place] >=1.030 Urine Protein Negative mg/dL (NEG-TRACE) Urine Glucose (UA) Negative mg/dL (NEG) Urine Ketones (Stick) Negative mg/dL (NEG) Urine Blood Negative (NEG) Urine Nitrite Negative (NEG) Urine Bilirubin Negative (NEG) Urine Urobilinogen Dipstick 0.2 mg/dL (0.2 mg/dL) Urine Leukocyte Esterase Trace (NEG) Urine RBC 3-5 /HPF (0-2) Urine WBC 1-4 /HPF (0-4) Urine Squamous Epithelial Cells Few /LPF Urine Bacteria Few /HPF (0-FEW) Urine Hyaline Casts Few /HPF Segmented Neutrophils % 76 % (35-66) Band Neutrophils % 16 % (0-9) Lymphocytes % 5 % (24-48) Monocytes % 2 % (0-10) Eosinophils % 1 % (0-5) Dohle Bodies Few Platelet Estimate Adequate (ADEQUATE) Anisocytosis Present Ovalocytes Few Magnesium Level 1.6 mg/dL (1.8-2.4) Medications Current Medications Hydromorphone HCl (Dilaudid) 1 mg 1X ONCE IV Last administered on 04/20/17t 18: 29; Start 04/20/17 at 18:00; Stop 04/20/17 at 18:03; Status DC Ondansetron HCl (Zofran) 4 mg STK-MED ONCE .ROUTE ; Start 04/20/17 at 18:06; Stop 04/20/17 at 18:07; Status DC Sodium Chloride (NORMAL SALINE FLUSH for STERILE FIELD) 10 ml STK-MED ONCE .ROUTE ; Start 04/20/17 at 18:07; Stop 04/20/17 at 18:08; Status DC Iohexol (Omnipaque 300 Mg/ml) 75 ml 1X ONCE IV Last administered on 04/20/17 19:10; Start 04/20/17 at 18:15; Stop 04/20/17 at 18:16; Status DC Info (Do NOT chart on this entry -- for MONITORING) 1 each PRN DAILY PRN MC SEE COMMENTS; Start 04/20/17 at 18:15; Stop 04/22/17 at 18:14 Ondansetron HCl (Zofran) 4 mg 1X ONCE IV Last administered on 04/20/17 18:29; Start 04/20/17 at 18:30; Stop 04/20/17 at 18:31; Status DC Hydromorphone HCl (Dilaudid) 1 mg 1X ONCE IV Last administered on 04/20/17 19: 33; Start 04/20/17 at 19:30; Stop 04/20/17 at 19:31; Status DC Metoclopramide HCl (Reglan) 10 mg 1X ONCE IV Last administered on 04/20/17 19: 32; Start 04/20/17 at 19:30; Stop 04/20/17 at 19:31; Status DC Sodium Chloride 1,000 ml @ 1,000 mls/hr 1X ONCE IV Last administered on 20:00; Start 04/20/17 at 20:00; Stop 04/20/17 at 20:59; Status DC Ondansetron HCl (Zofran) 4 mg PRN Q8HRS PRN IV NAUSEA/VOMITING; Start 04/20/17 at 20:45; Stop 04/21/17 at 01:14; Status DC Morphine Sulfate 4 mg PRN Q2HR PRN IV PAIN Last administered on 04/20/17 21:37 ; Start 04/20/17 at 20:45; Stop 04/20/17 at 23:09; Status DC Piperacillin Sod/ Tazobactam Sod 4.5 gm/Sodium Chloride 100 ml @ 200 mls/hr 1X ONCE IV Last administered on 04/20/17 21:40; Start 04/20/17 at 20:45; Stop 04/20/17 at 21:14; Status DC Ketorolac Tromethamine (Toradol) 15 mg PRN Q12HRS PRN IV PAIN Last administered on 04/21/17 11:02; Start 04/20/17 at 23:15; Stop 04/21/17 at 11:54; Status DC Alprazolam (Xanax) 0.5 mg PRN Q8HRS PRN PO ANXIETY / AGITATION; Start 04/20/17 at 23:15 Levothyroxine Sodium (Synthroid) 50 mcg DAILY06 PO Last administered on 05:54; Start 04/21/17 at 06:00 Ondansetron HCl (Zofran Odt) 4 mg PRN Q8HRS PRN PO nausea Last administered on 04/21/17 10:58; Start 04/20/17 at 23:15 Oxycodone/ Acetaminophen (Percocet 5/325) 1 tab PRN Q6HRS PRN PO pain Last administered on 04/21/17 04:09; Start 04/20/17 at 23:15 Pantoprazole Sodium (Protonix) 40 mg BIDBFRMEAL PO Last administered on 08:08; Start 04/21/17 at 07:30 Zolpidem Tartrate (Ambien) 5 mg QHS PO Last administered on 04/20/17 23:27; Start 04/20/17 at 23:15 Prochlorperazine Maleate (Compazine) 10 mg Q8HRS PO Last administered on 13:21; Start 04/21/17 at 06:00 Potassium Chloride 20 meq/ Sodium Chloride 1,010 ml @ 150 mls/hr Q6H44M IV Last administered on 04/21/17 12:42; Start 04/20/17 at 23:30 Pantoprazole Sodium (Protonix) 40 mg DAILYAC PO ; Start 04/21/17 at 07:30; Stop 04/21/17 at 07:30; Status DC Acetaminophen (Tylenol) 650 mg PRN Q6HRS PRN PO FEVER; Start 04/21/17 at 12:00 Ondansetron HCl (Zofran) 4 mg PRN Q6HRS PRN IV NAUSEA/VOMITING; Start 04/21/17 at 12:00 Morphine Sulfate 2 mg PRN Q2HR PRN IV PAIN SEVERE Last administered on 13:21; Start 04/21/17 at 12:00 Tramadol HCl (Ultram) 50 mg PRN Q6HRS PRN PO PAIN MILD; Start 04/21/17 at 12:00 Hydralazine HCl (Apresoline) 10 mg PRN Q4HRS PRN IVP ELEVATED BP, SEE COMMENTS ; Start 04/21/17 at 12:00 Docusate Sodium (Colace) 100 mg PRN DAILY PRN PO CONSTIPATION; Start 04/21/17 at 12:00; Stop 04/21/17 at 12:00; Status DC Magnesium Sulfate/ Dextrose 50 ml @ 25 mls/hr 1X ONCE IV Last administered on 04/21/17 12:43; Start 04/21/17 at 12:00; Stop 04/21/17 at 13:59; Status DC Active Scripts Active Zofran Odt (Ondansetron) 4 Mg Tab.rapdis 1 Tab SL Q8HRS Percocet 5-325 Mg Tablet (Oxycodone/Acetaminophen) 1 Each Tablet 1-2 Tab PO Q4- 6HRS Levaquin (Levofloxacin) 500 Mg Tablet 1 Tab PO DAILY Zofran Odt (Ondansetron) 4 Mg Tab.rapdis 1 Tab SL Q8HRS Pantoprazole Sodium 40 Mg Tablet.dr 40 Mg PO BIDBFRMEAL 60 Days Alprazolam 0.5 Mg Tablet 0.5 Mg PO PRN Q8HRS PRN Compazine (Prochlorperazine Maleate) 10 Mg Tablet 10 Mg PO Q8HRS Docusate Sodium 100 Mg Capsule 100 Mg PO PRN DAILY PRN Oxycodon-Acetaminophen 7.5-325 (Oxycodone Hcl/Acetaminophen) 1 Each Tablet 1 Tab PO PRN Q4HRS PRN Reported Ambien (Zolpidem Tartrate) 5 Mg Tablet 1 Tab PO QHS Levothyroxine Sodium 50 Mcg Tablet 1 Tab PO DAILY Vitals/I & O Vital Sign - Last 24 Hours 04/20/17 04/20/17 04/20/17 04/20/17 17:50 18:33 18:59 19:30 Temp 97.3 97.3 Pulse 115 103 88 Resp 20 22 24 11 B/P (MAP) 164/95 (118) 161/91 (114) 140/69 (92) Pulse Ox 98 98 96 95 O2 Delivery Room Air Room Air Room Air 04/20/17 04/20/17 04/20/17 04/20/17 19:33 20:03 20:38 21:36 Temp 97.7 97.7 Pulse 84 81 94 Resp 24 11 16 16 B/P (MAP) 129/64 (85) 141/62 (88) 152/71 (98) Pulse Ox 96 95 94 98 O2 Delivery Room Air Room Air Room Air Room Air 04/20/17 04/20/17 04/21/17 04/21/17 21:59 23:00 03:00 07:47 Temp 98.1 97.9 97.9 98.1 97.9 97.9 Pulse 79 73 72 Resp 16 18 20 B/P (MAP) 119/66 (83) 135/78 (97) 130/70 (90) Pulse Ox 97 97 98 O2 Delivery Room Air Room Air Room Air Room Air 04/21/17 04/21/17 04/21/17 08:00 11:00 13:21 Temp 98.2 98.2 Pulse 67 Resp 18 B/P (MAP) 151/59 (89) Pulse Ox 96 O2 Delivery Room Air Room Air Room Air Intake and Output 04/20/17 04/20/17 04/21/17 15:00 23:00 07:00 Intake Total 800 ml Balance 800 ml SIRI SANTIAGO MD Apr 21, 2017 14:11
[2017-04-21 15:00] VITALS: BP 140/62
[2017-04-21] MEDS: ENOXAPARIN 40 MG/0.4 ML SYRINGE. SQ SCH (16:47)
[2017-04-21 19:00] VITALS: BP 117/55
[2017-04-21] MEDS: ZOLPIDEM 5 MG TABLET. PO SCH (21:30)
[2017-04-21 23:00] VITALS: BP 114/57
[2017-04-22] MEDS: MORPHINE SULFATE 2 MG/ML DISP.SYRIN. IV PRN ×4 (02:14→12:50)
[2017-04-22 03:00] VITALS: BP 102/50
[2017-04-22] MEDS: LEVOTHYROXINE 50 MCG TABLET PO SCH (05:31)
[2017-04-22] MEDS: PROCHLORPERAZINE 5 MG TABLET. PO SCH ×2 (05:32→14:13)
[2017-04-22 06:26] LABS: BASO # 0.1 x10^3/uL (0.0-0.2); BASO % 0 % (0-3); CALCIUM 7.4 mg/dL (8.5-10.1); CREATININE 0.7 mg/dL (0.6-1.0); EOS % 0 % (0-3); GFR 85.6; HEMATOCRIT 27.5 % (36.0-47.0); HEMOGLOBIN 8.8 g/dL (12.0-15.5); LYMPH # 4.4 x10^3/uL (1.0-4.8); LYMPH % 6 % (24-48); MEAN CORPUSCULAR HEMOGLOBIN 29 pg (25-35); MEAN CORPUSCULAR HGB CONC 32 g/dL (31-37); MEAN CORPUSCULAR VOLUME 91 fL (79-100); MONO % 1 % (0-9); NEUT % 93 % (31-73); PLATELET COUNT 135 x10^3/uL (140-400); POTASSIUM 3.8 mmol/L (3.5-5.1); RED BLOOD COUNT 3.01 x10^6/uL (3.50-5.40); RED CELL DISTRIBUTION WIDTH 21.1 % (11.5-14.5)
[2017-04-22 06:41] LABS: WHITE BLOOD COUNT 75.7 x10^3/uL (4.0-11.0)
[2017-04-22 07:22] VITALS: BP 122/52
[2017-04-22] MEDS: PANTOPRAZOLE 40 MG TABLET.DR. PO SCH ×2 (08:31→16:09)
--- NOTE | 2017-04-22 10:01 | PDOC ---
Subjective: Subjective: Onc f/u- Stage IV colon ca, diarrhea chronically, neutrophilia Pt again feels well as she has in previous admissions with IVF. Has appt Wed with surgeon to discuss ostomy reversal. No fevers. N/V better. Appetite ok. Requesting to DC today Has IVF scheduled Wed in our clinic. Objective: Vital Signs: Vital Signs Date Time Temp Pulse Resp B/P (MAP) Pulse Ox O2 Delivery O2 Flow Rate FiO2 04/22/17 09:11 99 Room Air 04/22/17 07:22 97.7 60 16 122/52 (75) 97.7 Physical Exam: Heart: Regular rate Extremities: No edema General: Alert, Oriented X3, Cooperative, No acute distress Lungs: Other (no resp distress) Psych/Mental Status: Mental status NL, Mood NL Skin: No rashes Labs/Imaging: WBC trending down (99 --> 75) Assessment/Plan A/P: 1. Stage IV colon cancer with peritoneal mets- S/p palliative FOLFOX/ Avastin cycle 3 04/16. F/u with Dr. Cj goodman planned 04/29. 2. Ongoing diarrhea, severe dumping syndrome with recurrent admissions for dehydration. Pt has appt with Dr. Balderas on 04/24 to discuss reversal. Understands chemo would be on hold for healing but quality of life is very poor currently. 3. Neutrophilia. Due to Neulasta given 04/19. Trending down. No obvious infection. As previously, sx quickly improve with IVF. Could not get over the weekend. Eager to DC today. Has IVF set up in our clinic 04/24. Ok to DC from onc standpoint w/ f/u in place as above. OSVALDO NOVOA DO Apr 22, 2017 10:01
[2017-04-22 11:38] VITALS: BP 108/62
--- NOTE | 2017-04-22 11:42 | PDOC3 ---
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 She has dark liquid diarrhea ever since sx, no fever. She came for intractable nausea, no vomiting with chemo likely. was found WBC 99 , which is likely 2/2 neulasta shot. Cdiff sent , pending. pt has no N/V today, advance diet, repleted K, mag. DC HOME today if cdiff neg. fu with onco this week for ivf, and fu with sx on Sat for possible reversion of colostomy. dc time 35min General: Alert, Oriented X3 Heart: Regular rate Lungs: Clear, Other Abdomen: Soft, No tenderness, Other (RLQ colostomy dark stool, liquid ) Extremities: No clubbing Skin: No rashes Patient History: FH: COPD (chronic obstructive pulmonary disease) 33 FATHER FH: thyroid disease 32 MOTHER Problems: Disposition home CONDITION AT DISCHARGE: Improved Diet regular Scheduled Levothyroxine Sodium (Levothyroxine Sodium), 1 TAB PO DAILY, (Reported) Ondansetron (Zofran Odt), 1 TAB SL Q8HRS Ondansetron (Zofran Odt), 1 TAB SL Q8HRS Oxycodone/Apap 5-325 (Percocet 5-325 Mg Tablet), 1-2 TAB PO Q4-6HRS Pantoprazole Sodium (Pantoprazole Sodium), 40 MG PO BIDBFRMEAL Prochlorperazine Maleate (Compazine), 10 MG PO Q8HRS Zolpidem Tartrate (Ambien), 1 TAB PO QHS, (Reported) Scheduled PRN Alprazolam (Alprazolam), 0.5 MG PO PRN Q8HRS PRN for ANXIETY / AGITATION Docusate Sodium (Docusate Sodium), 100 MG PO PRN DAILY PRN for CONSTIPATION Oxycodone Hcl/Acetaminophen (Oxycodon-Acetaminophen 7.5-325), 1 TAB PO PRN Q4HRS PRN for MODERATE PAIN Discontinued Medications Levofloxacin (Levaquin), 1 TAB PO DAILY Follow Up onco and sx this week SIRI SANTIAGO MD Apr 22, 2017 11:42
[2017-04-22] MEDS: ENOXAPARIN 40 MG/0.4 ML SYRINGE. SQ SCH (14:14)
[2017-04-22 15:07] VITALS: BP 123/60
[2017-04-22] MEDS ORDERED: HEPARIN PF 500 UNIT/5 ML DISP.SYRIN. IV ONE (16:00)
== END 2017-04-22 16:23 | disposition home or self-care (01) | DRG 392 ==
LOC: ER 17:42 → 6 SOUTH 20:41
PROVIDERS: ADMIT Internal Medicine Hematology & Oncology; ATTEND Internal Medicine Hematology & Oncology
DX: R11.0 Nausea (principal); C78.6 Secondary malignant neoplasm of retroperitoneum and peritoneum; C92.01 Acute myeloblastic leukemia, in remission; E87.1 Hypo-osmolality and hyponatremia; E87.2 Acidosis; E86.0 Dehydration; K91.1 Postgastric surgery syndromes; E03.9 Hypothyroidism, unspecified; E83.42 Hypomagnesemia; G62.9 Polyneuropathy, unspecified; K21.9 Gastro-esophageal reflux disease without esophagitis; T45.8X5A Adverse effect of other primarily systemic and hematological agents, initial encounter; D72.0 Genetic anomalies of leukocytes; R00.0 Tachycardia, unspecified; F41.9 Anxiety disorder, unspecified; R45.1 Restlessness and agitation; M19.90 Unspecified osteoarthritis, unspecified site; I10 Essential (primary) hypertension; Z82.5 Family history of asthma and other chronic lower respiratory diseases; Z90.49 Acquired absence of other specified parts of digestive tract; Z93.3 Colostomy status; Z90.710 Acquired absence of both cervix and uterus; Z90.89 Acquired absence of other organs; Z93.2 Ileostomy status; Y92.89 Other specified places as the place of occurrence of the external cause; K52.9 Noninfective gastroenteritis and colitis, unspecified; T45.1X5A Adverse effect of antineoplastic and immunosuppressive drugs, initial encounter; Z85.038 Personal history of other malignant neoplasm of large intestine
CPT/HCPCS: 36415; 74177; 80048; 80053; 81001; 83605; 83735; 84443; 85007; 85027; 87040; 87086; 87324; 93005; 96361; 96374; 96375; 96376; J1170; J1650; J1885; J2270; J2405; J2543; J2765; J7030; J7060; Q0162; Q0164; Q9967; 99285-25

== ENCOUNTER → 2017-04-26 | Outpatient (CLI) | payer OTHER ==
[2017-04-22 15:07] VITALS: BP 123/60
[~2017-04-26] MED LIST changes: +BARIUM SULFATE 105% 1,900 ML SUSP PO ONE; +[UNRECOGNIZED DRUG - CODE] IV
--- NOTE | 2017-04-26 12:33 | RAD ---
Barium enema, 04/26/2017: History: Colon cancer and ileostomy takedown planning The preliminary abdominal image demonstrates a nonspecific gas pattern. Surgical clips are present in the right upper quadrant. Extensive arterial calcifications are present. The colon was filled with barium in retrograde manner. 3.3 minutes of fluoroscopy time was utilized. 13 fluoroscopic spot images were recorded. There has been a right hemicolectomy. There is no obstruction to flow of the barium through the ileocolic anastomosis. There is prompt extension of the barium into the ileostomy. There are filling defects particularly at the transverse colon and hepatic flexure levels compatible with retained fecal debris. There are some associated contour irregularities through these regions. A small mucosal mass cannot be excluded in the presence of these filling defects. IMPRESSION: 1. Status post right hemicolectomy with a widely patent ileocolic anastomosis. 2. Scattered filling defects compatible with fecal debris. 3. No evidence of obstruction.
== END | disposition home or self-care (01) ==
LOC: RAD 13:09
PROVIDERS: ATTEND Surgery
DX: C18.9 Malignant neoplasm of colon, unspecified (principal); Z90.49 Acquired absence of other specified parts of digestive tract
CPT/HCPCS: 74270

== ENCOUNTER 2017-07-07 11:56 | Emergency (ER) | payer OTHER ==
[~2017-07-07] VITALS: Ht 162.6 cm; Wt 64.9 kg
[~2017-07-07 11:56] MED LIST changes: -BARIUM SULFATE 105% 1,900 ML SUSP PO ONE; +PANT40TA3 PO
--- NOTE | 2017-07-07 12:05 | EKG ---
[facility] [address] [place] [address] Test Date: 2017-07-07 Test Time: 11:58:18 Pat Name: CATALINO COBOS Department: Room: Gender: F [employer]: : 1955 Requested By: ISIDRA SALDIVAR Order Number: [id number] Reading MD: Erik Carlos Measurements Intervals [place] Rate: 110 P: OR: QRS: 42 QRSD: 84 T: 55 QT: 370 QTc: 507 Interpretive Statements SUSPECT SINUS RHYTHM WITH BURSTS OF ATRIAL FIB/TACHYCARDIA Electronically Signed On 07-08-2017 13:20:15 CDT by Erik Carlos
[2017-07-07] MEDS ORDERED: dilTIAZem IV PUSH 25 MG/5 ML VIAL IVP ONE (12:15)
--- NOTE | 2017-07-07 12:28 | PHYS DOC ---
Past Medical History Past Medical History: Cancer, Hypertension, Hypothyroid, Other Additional Past Medical Histor: THYROID DZ, ACUTE MYELOID LEUKEMIA (2008) W/ REMISSION, COLON CA (2017) Past Surgical History: Appendectomy, Cholecystectomy, Hysterectomy, Tonsillectomy Additional Past Surgical Histo: BOWEL RESECTION, ILEOSTOMY with reversal, BOWEL RESECTION , thyroid Alcohol Use: None Drug Use: None Adult General Chief Complaint Chief Complaint: CHEST PAIN HPI HPI Patient is a 61 year old female who presents with one day history of palpitations new onset moderate severity nothing makes it worse or better no prior episodes like this. Denies chest pain or significant shortness of breath or leg pain or swelling. Currently undergoing chemotherapy for least for colon cancer. Denies fever chills or productive cough. No prior cardiac history or stress test or heart catheter and no history of A. fib. Review of Systems Review of Systems Constitutional: Denies fever or chills [] Eyes: Denies change in visual acuity, redness, or eye pain [] HENT: Denies nasal congestion or sore throat [] Respiratory: Denies cough or shortness of breath [] Cardiovascular: No additional information not addressed in HPI [] GI: Denies abdominal pain, nausea, vomiting, bloody stools or diarrhea [] : Denies dysuria or hematuria [] Musculoskeletal: Denies back pain or joint pain [] Integument: Denies rash or skin lesions [] Neurologic: Denies headache, focal weakness or sensory changes [] Endocrine: Denies polyuria or polydipsia [ All systems negative except as mentioned in the history of present illness.] Current Medications Current Medications Current Medications Medications (Trade) Dose Ordered Sig/Nneka Start Time Stop Time Status Last Admin Dose Admin Diltiazem HCl (Cardizem) 15 mg 1X ONCE 07/07/17 12:15 07/07/17 12:16 DC Oxycodone/ Acetaminophen (Percocet 5/325) 1 tab 1X ONCE 07/07/17 13:30 07/07/17 13:31 DC 07/07/17 13:23 1 TAB Potassium Chloride (Klor-Con) 20 meq 1X ONCE 07/07/17 13:15 07/07/17 13:17 DC 07/07/17 13:24 20 MEQ Sodium Chloride 1,000 ml @ 1,000 mls/hr 1X ONCE 07/07/17 13:00 07/07/17 13:59 DC 07/07/17 12:49 1,000 MLS/HR Allergies Allergies Allergies Coded Allergies Type Severity Reaction Last Updated Verified sulfamethoxazole Adverse Reaction Intermediate GI UPSET 03/01/17 Yes trimethoprim Adverse Reaction Intermediate GI UPSET 03/01/17 Yes Physical Exam Physical Exam Constitutional: Well developed, well nourished, no acute distress, non-toxic appearance. [] HENT: Normocephalic, atraumatic, bilateral external ears normal, oropharynx moist, no oral exudates, nose normal. [] Eyes: PERRLA, EOMI, conjunctiva normal, no discharge. [] Neck: Normal range of motion, no tenderness, supple, no stridor. [] Cardiovascular:Heart rate tachycardic with irregular rhythm, no murmur [] Lungs & Thorax: Bilateral breath sounds clear to auscultation [] Abdomen: Bowel sounds normal, soft, no tenderness, no masses, no pulsatile masses. [] Skin: Warm, dry, no erythema, no rash. [] Back: No tenderness, no CVA tenderness. [] Extremities: No tenderness, no cyanosis, no clubbing, ROM intact, no edema. [ Negative Homans sign no swelling nontender to palpation] Neurologic: Alert and oriented X 3, normal motor function, normal sensory function, no focal deficits noted. [] Psychologic: Affect normal, judgement normal, mood normal. [] Current Patient Data Vital Signs Vital Signs Date Time Temp Pulse Resp B/P (MAP) Pulse Ox O2 Delivery O2 Flow Rate FiO2 07/07/17 13:30 68 14 119/63 (81) 98 Room Air 07/07/17 12:01 98.9 98.9 Lab Values Laboratory Tests Test 07/07/17 12:40 White Blood Count 66.3 x10^3/uL (4.0-11.0) *H Red Blood Count 4.15 x10^6/uL (3.50-5.40) Hemoglobin 12.8 g/dL (12.0-15.5) Hematocrit 38.9 % (36.0-47.0) Mean Corpuscular Volume 94 fL (79-100) Mean Corpuscular Hemoglobin 31 pg (25-35) Mean Corpuscular Hemoglobin Concent 33 g/dL (31-37) Red Cell Distribution Width 19.0 % (11.5-14.5) H Platelet Count 136 x10^3/uL (140-400) L Neutrophils (%) (Auto) 94 % (31-73) H Lymphocytes (%) (Auto) 4 % (24-48) L Monocytes (%) (Auto) 0 % (0-9) Eosinophils (%) (Auto) 0 % (0-3) Basophils (%) (Auto) 1 % (0-3) Neutrophils # (Auto) 62.7 x10^3uL (1.8-7.7) H Lymphocytes # (Auto) 2.9 x10^3/uL (1.0-4.8) Monocytes # (Auto) 0.2 x10^3/uL (0.0-1.1) Eosinophils # (Auto) 0.1 x10^3/uL (0.0-0.7) Basophils # (Auto) 0.4 x10^3/uL (0.0-0.2) H Segmented Neutrophils % 89 % (35-66) H Band Neutrophils % 5 % (0-9) Lymphocytes % 6 % (24-48) L Toxic Granulation Slight Toxic Vacuolation Slight Dohle Bodies Few Platelet Estimate Adequate (ADEQUATE) Anisocytosis Slight Sodium Level 138 mmol/L (136-145) Potassium Level 2.9 mmol/L (3.5-5.1) *L Chloride Level 100 mmol/L (98-107) Carbon Dioxide Level 29 mmol/L (21-32) Anion Gap 9 (6-14) Blood Urea Nitrogen 14 mg/dL (7-20) Creatinine 0.6 mg/dL (0.6-1.0) Estimated GFR (Cockcroft-Gault) 102.3 BUN/Creatinine Ratio 23 (6-20) H Glucose Level 98 mg/dL (70-99) Calcium Level 9.0 mg/dL (8.5-10.1) Total Bilirubin 0.5 mg/dL (0.2-1.0) Aspartate Amino Transferase (AST) 17 U/L (15-37) Alanine Aminotransferase (ALT) 31 U/L (14-59) Alkaline Phosphatase 196 U/L (46-116) H Troponin I Quantitative < 0.017 ng/mL (0.000-0.055) Total Protein 6.4 g/dL (6.4-8.2) Albumin 3.3 g/dL (3.4-5.0) L Albumin/Globulin Ratio 1.1 (1.0-1.7) Laboratory Tests 07/07/17 12:40 Laboratory Tests 07/07/17 12:40 EKG EKG EKG shows A. fib with RVR rate of 110 no STEMI QTC by the computer was 507 my interpretation[] Radiology/Procedures Radiology/Procedures Chest x-ray[] negative my interpretation Course & Med Decision Making Course & Med Decision Making Pertinent Labs and Imaging studies reviewed. (See chart for details) Reexamination at 12:40 PM patient appears to be in and out of sinus rhythm and her pulse rate currently is around 70 and she has not received Cardizem yet. Other instructed the nurse to hold the Cardizem for now until we see where her pulse rate ends up.[] Reexamination 1341: Patient feels fine she's remained in sinus rhythm rate in the 70s denies any chest pain or shortness of breath or leg pain or calf pain. While at risk for pulmonary embolism given her cancer status, she does not exhibit any signs or symptoms consistent with that at this point in time and I do not feel a CTA of the chest is warranted. Discussed this issue with the patient in detail.. He does have a hall porter she sees a REJI BUENROSTRO: recommended that she call that office tomorrow for close follow-up. I don't feel the patient needs be put on any medications for rate control at this point in time since this is only occurred one time. Patient is quite happy to go home. Leukocytosis was felt to be due to her Neupogen-type shot Saturday. Hypokalemia was mild: patient admits she's had problems with this in the past week and took supplements for 3 days and I recommend she continues supplements for the next week. Dragon Disclaimer Dragon Disclaimer This electronic medical record was generated, in whole or in part, using a voice recognition dictation system. Departure Departure Impression: Primary Impression: Paroxysmal atrial fibrillation with RVR Additional Impressions: Colon cancer Hypokalemia Disposition: HOME, SELF-CARE Condition: IMPROVED Referrals: ZEHRA SMITH (PCP) Patient Instructions: Atrial Fibrillation, [id number], Hypokalemia-Brief Problem Qualifiers ISIDRA SALDIVAR MD Jul 07, 2017 12:28
--- NOTE | 2017-07-07 12:43 | RAD ---
Chest radiograph 07/07/2017 2:00 PM Indication: Heart palpitations, dizziness Comparison: Chest radiograph 04/04/2017 Technique: Single portable upright frontal view of the chest is provided. Findings: A right chest wall infusion port catheter is identified with the distal tip projecting over the superior vena cava. Cardiomediastinal silhouette is within normal limits. No pleural effusions, pulmonary vascular congestion or pneumothorax. The lungs are clear. Osseous structures are normal. Impression: No acute cardiopulmonary process.
[2017-07-07 12:58] LABS: BASO # 0.4 x10^3/uL (0.0-0.2); BASO % 1 % (0-3); EOS % 0 % (0-3); HEMATOCRIT 38.9 % (36.0-47.0); HEMOGLOBIN 12.8 g/dL (12.0-15.5); LYMPH # 2.9 x10^3/uL (1.0-4.8); LYMPH % 4 % (24-48); MEAN CORPUSCULAR HEMOGLOBIN 31 pg (25-35); MEAN CORPUSCULAR HGB CONC 33 g/dL (31-37); MEAN CORPUSCULAR VOLUME 94 fL (79-100); MONO % 0 % (0-9); NEUT % 94 % (31-73); PLATELET COUNT 136 x10^3/uL (140-400); RED BLOOD COUNT 4.15 x10^6/uL (3.50-5.40)
[2017-07-07] MEDS ORDERED: IV NORMAL SALINE 1000ML BAG 1,000 ML IV ONE (13:00)
[2017-07-07 13:05] LABS: WHITE BLOOD COUNT 66.3 x10^3/uL (4.0-11.0)
[2017-07-07 13:12] LABS: ALBUMIN 3.3 g/dL (3.4-5.0); ALBUMIN/GLOBULIN RATIO 1.1 (1.0-1.7); CREATININE 0.6 mg/dL (0.6-1.0); GFR 102.3; TOTAL BILIRUBIN 0.5 mg/dL (0.2-1.0); TOTAL PROTEIN 6.4 g/dL (6.4-8.2)
[2017-07-07 13:13] LABS: POTASSIUM 2.9 mmol/L (3.5-5.1)
[2017-07-07] MEDS ORDERED: POTASSIUM CHLORIDE 20 MEQ TABLET.ER. PO ONE (13:15)
[2017-07-07 13:30] VITALS: BP 119/63
[2017-07-07] MEDS ORDERED: oxyCODONE/APAP 5/325 1 TAB TABLET PO ONE (13:30)
[2017-07-07 14:34] LABS: ANISOCYTOSIS SLIGHT; PLT ESTIMATE ADEQUATE (ADEQUATE)
[2017-07-07 14:35] LABS: TOXIC GRANULATION SLIGHT; TOXIC VACUOLATION SLIGHT
== END 2017-07-07 14:00 | disposition home or self-care (01) ==
LOC: ER 11:56
DX: I48.0 Paroxysmal atrial fibrillation (principal); C18.9 Malignant neoplasm of colon, unspecified; E87.6 Hypokalemia; I10 Essential (primary) hypertension; E03.9 Hypothyroidism, unspecified; Z90.49 Acquired absence of other specified parts of digestive tract; Z90.710 Acquired absence of both cervix and uterus; Z51.11 Encounter for antineoplastic chemotherapy; Z88.2 Allergy status to sulfonamides; Z88.1 Allergy status to other antibiotic agents
CPT/HCPCS: 36415; 71010; 80053; 84484; 85007; 85025; 93005; 96360; 99285; J7030

== ENCOUNTER → 2017-07-09 | Outpatient (CLI) | payer OTHER ==
[2017-07-07 13:30] VITALS: BP 119/63
[~2017-07-09] MED LIST changes: +CONTRAST GIVEN MC PRN; +HEPARIN PF 500 UNIT/5 ML DISP.SYRIN. IV ONE; +IOHEXOL 240 MG/ML 50ML VIAL. ONE; +IOHEXOL 240 MG/ML 50ML VIAL. PO ONE; +IOHEXOL 300 MG/ML 75 ML VIAL IV ONE; +IOHEXOL 300 MG/ML 75 ML VIAL ONE
--- NOTE | 2017-07-09 16:29 | RAD ---
CT of the chest, abdomen and pelvis with contrast, 07/09/2017: History: Colon cancer staging Multidetector CT imaging was performed following oral and IV administration of contrast. There is moderate calcific plaquing of the thoracic aorta and its branches. Mild scattered coronary artery calcifications are present. No mediastinal or hilar adenopathy is seen. There is a 3.3 cm low-density left thyroid mass which is unchanged since 03/16/2017. A right Port-A-Cath extends into the inferior aspect of the superior vena cava. No pulmonary mass or significant infiltrate is seen. There is a faint peripheral groundglass opacity in the lateral aspect of the left base which is unchanged and probably represents scarring. There are a few other small scattered linear parenchymal scars. There is no evidence of pleural fluid. The gallbladder is surgically absent. No hepatic mass is seen. There are several calcifications in the pancreatic head region. These may be vascular or related to a previous episode of pancreatitis. The pancreas is otherwise unremarkable. The spleen shows no abnormality. The kidneys and adrenal glands are unremarkable. There is moderate aortoiliac calcific plaquing. No abdominal or pelvic adenopathy is seen. The uterus is surgically absent. There has been a previous partial colonic resection. The bowel loops are not dilated. No free air or free fluid is evident in the abdomen or pelvis. There is persistent, slightly nodular peritoneal thickening best seen in the right paracolic gutter. This has shown no definite change since 06/08/2017 and 04/04/2017. There is a 12 mm low-density nodule in the upper abdomen near the midline adjacent to the posterior aspect of the left lobe of liver as seen on image 24 series #4. This is unchanged since 06/08/2017, but appears to be slightly larger than on 05/04/2017. Although this could represent a tiny postoperative fluid collection, the possibility of a mucinous type tumor implant should be considered. There are moderate scattered degenerative changes in the spine and at the hips. IMPRESSION: 1. No CT evidence of metastatic disease in the chest. 2. Stable appearing minimal peritoneal nodularity in the right paracolic gutter region. 3. A tiny low-density lesion in the upper abdomen appears to have increased slightly in size as described above. Further CT follow-up is suggested. PQRS Compliance Statement: One or more of the following individualized dose reduction techniques were utilized for this examination: 1. Automated exposure control 2. Adjustment of the mA and/or kV according to patient size 3. Use of iterative reconstruction technique
== END | disposition home or self-care (01) ==
LOC: CT 13:01
PROVIDERS: ATTEND Internal Medicine Hematology & Oncology
DX: C18.4 Malignant neoplasm of transverse colon (principal)
CPT/HCPCS: 71260; 74177; Q9966; Q9967

== ENCOUNTER 2017-07-29 16:17 | Inpatient (IN) | payer OTHER ==
[~2017-07-29] VITALS: Ht 162.6 cm; Wt 64.4 kg
[~2017-07-29 16:17] MED LIST changes: -CONTRAST GIVEN MC PRN; -HEPARIN PF 500 UNIT/5 ML DISP.SYRIN. IV ONE; -IOHEXOL 240 MG/ML 50ML VIAL. ONE; -IOHEXOL 240 MG/ML 50ML VIAL. PO ONE; -IOHEXOL 300 MG/ML 75 ML VIAL IV ONE; -IOHEXOL 300 MG/ML 75 ML VIAL ONE
--- NOTE | 2017-07-29 16:20 | PHYS DOC ---
Past Medical History Past Medical History: Cancer, Hypertension, Hypothyroid, Other Additional Past Medical Histor: THYROID DZ, ACUTE MYELOID LEUKEMIA (2008) W/ REMISSION, COLON CA (2017) Past Surgical History: Appendectomy, Cholecystectomy, Hysterectomy, Tonsillectomy Additional Past Surgical Histo: BOWEL RESECTION, ILEOSTOMY with reversal, BOWEL RESECTION , thyroid Alcohol Use: None Drug Use: None Adult General Chief Complaint Chief Complaint: DEHYDRATION HPI HPI Patient is a 61 year old female who presents with was weakness and dehydration. She has a history of colon cancer and is actively on chemotherapy at this time, she states she just had her seventh round on and she receives chemotherapy every 2 weeks. She states she's had a colon resection prior to this. She states that on Saturday she started feeling weak with nausea and had numerous nonbloody loose stools. She states yesterday she had 2 additional ones. She denies any fever, she does have a nonproductive cough. She states she's having abdominal cramps around her umbilicus. She states she did receive Neulasta injection her last chemotherapy. Review of Systems Review of Systems Constitutional: Denies fever or chills [] Eyes: Denies change in visual acuity, redness, or eye pain [] HENT: Denies nasal congestion or sore throat [] Respiratory: Positive for cough, denies any shortness of breath Cardiovascular: No additional information not addressed in HPI [] GI: Positive for nausea, abdominal cramps, denies any vomiting, bloody stools : Denies dysuria or hematuria [] Musculoskeletal: Denies back pain or joint pain [] Integument: Denies rash or skin lesions [] Neurologic: Denies headache, focal weakness or sensory changes [] Endocrine: Denies polyuria or polydipsia [] Current Medications Current Medications Current Medications Medications (Trade) Dose Ordered Sig/Nneka Start Time Stop Time Status Last Admin Dose Admin Fentanyl Citrate (Fentanyl 2ml Vial) 25 mcg PRN Q15MIN PRN 07/29/17 17:15 07/30/17 17:14 07/29/17 17:54 25 MCG Morphine Sulfate 4 mg STK-MED ONCE 07/29/17 18:19 07/29/17 18:20 DC Potassium Chloride 100 ml @ 100 mls/hr Q1H 07/29/17 19:30 07/29/17 23:29 Sodium Chloride 1,000 ml @ 1,000 mls/hr Q1H 07/29/17 16:42 07/29/17 17:41 DC 07/29/17 17:05 1,000 MLS/HR Allergies Allergies Allergies Coded Allergies Type Severity Reaction Last Updated Verified sulfamethoxazole Adverse Reaction Intermediate GI UPSET 03/01/17 Yes trimethoprim Adverse Reaction Intermediate GI UPSET 03/01/17 Yes Physical Exam Physical Exam Constitutional: Well developed, well nourished, no acute distress, non-toxic appearance. [] HENT: Normocephalic, atraumatic, bilateral external ears normal, oropharynx moist, no oral exudates, nose normal. [] Eyes: PERRLA, EOMI, conjunctiva normal, no discharge. [] Neck: Normal range of motion, no tenderness, supple, no stridor. [] Cardiovascular:Heart rate regular rhythm, no murmur [] Lungs & Thorax: Bilateral breath sounds clear to auscultation [] Abdomen: Bowel sounds normal, soft, mild tender palpation diffusely, no rebound or guarding, no masses, no pulsatile masses. [] Skin: Warm, dry, no erythema, no rash. [] Back: No tenderness, no CVA tenderness. [] Extremities: No tenderness, no cyanosis, no clubbing, ROM intact, no edema. [] Neurologic: Alert and oriented X 3, normal motor function, normal sensory function, no focal deficits noted. [] Psychologic: Affect normal, judgement normal, mood normal. [] Current Patient Data Vital Signs Vital Signs Date Time Temp Pulse Resp B/P (MAP) Pulse Ox O2 Delivery O2 Flow Rate FiO2 07/29/17 18:37 Room Air 07/29/17 17:57 60 122/57 (78) 98 07/29/17 17:36 20 07/29/17 16:25 98.6 98.6 Lab Values Laboratory Tests Test 07/29/17 17:00 07/29/17 17:30 White Blood Count 102.2 x10^3/uL (4.0-11.0) *H Red Blood Count 3.86 x10^6/uL (3.50-5.40) Hemoglobin 12.0 g/dL (12.0-15.5) Hematocrit 36.7 % (36.0-47.0) Mean Corpuscular Volume 95 fL (79-100) Mean Corpuscular Hemoglobin 31 pg (25-35) Mean Corpuscular Hemoglobin Concent 33 g/dL (31-37) Red Cell Distribution Width 19.3 % (11.5-14.5) H Platelet Count 203 x10^3/uL (140-400) Neutrophils (%) (Auto) 93 % (31-73) H Lymphocytes (%) (Auto) 5 % (24-48) L Monocytes (%) (Auto) 1 % (0-9) Eosinophils (%) (Auto) 0 % (0-3) Basophils (%) (Auto) 1 % (0-3) Neutrophils # (Auto) 94.7 x10^3uL (1.8-7.7) H Lymphocytes # (Auto) 5.3 x10^3/uL (1.0-4.8) H Monocytes # (Auto) 1.3 x10^3/uL (0.0-1.1) H Eosinophils # (Auto) 0.2 x10^3/uL (0.0-0.7) Basophils # (Auto) 0.7 x10^3/uL (0.0-0.2) H Segmented Neutrophils % 93 % (35-66) H Lymphocytes % 6 % (24-48) L Monocytes % 1 % (0-10) Platelet Estimate Adequate (ADEQUATE) Polychromasia Slight Ovalocytes Occ Schistocytes Occ Sodium Level 138 mmol/L (136-145) Potassium Level 2.9 mmol/L (3.5-5.1) *L Chloride Level 100 mmol/L (98-107) Carbon Dioxide Level 29 mmol/L (21-32) Anion Gap 9 (6-14) Blood Urea Nitrogen 16 mg/dL (7-20) Creatinine 0.5 mg/dL (0.6-1.0) L Estimated GFR (Cockcroft-Gault) 126.3 BUN/Creatinine Ratio 32 (6-20) H Glucose Level 85 mg/dL (70-99) Lactic Acid Level 1.9 mmol/L (0.4-2.0) Calcium Level 9.2 mg/dL (8.5-10.1) Magnesium Level 1.6 mg/dL (1.8-2.4) L Total Bilirubin 0.5 mg/dL (0.2-1.0) Aspartate Amino Transferase (AST) 13 U/L (15-37) L Alanine Aminotransferase (ALT) 21 U/L (14-59) Alkaline Phosphatase 224 U/L (46-116) H Total Protein 6.4 g/dL (6.4-8.2) Albumin 3.6 g/dL (3.4-5.0) Albumin/Globulin Ratio 1.3 (1.0-1.7) Urine Collection Type Unknown Urine Color Yellow Urine Clarity Clear Urine pH 6.0 Urine Specific [place] 1.020 Urine Protein Negative mg/dL (NEG-TRACE) Urine Glucose (UA) Negative mg/dL (NEG) Urine Ketones (Stick) Negative mg/dL (NEG) Urine Blood Negative (NEG) Urine Nitrite Negative (NEG) Urine Bilirubin Negative (NEG) Urine Urobilinogen Dipstick 0.2 mg/dL (0.2 mg/dL) Urine Leukocyte Esterase Trace (NEG) Urine RBC 0 /HPF (0-2) Urine WBC Occ /HPF (0-4) Urine Squamous Epithelial Cells Mod /LPF Urine Bacteria Moderate /HPF (0-FEW) Urine Mucus Marked /LPF Laboratory Tests 07/29/17 17:00 Laboratory Tests 07/29/17 17:00 EKG EKG EKG shows sinus rhythm with rate [address] elevations or concerning T-wave inversions, normal axis, QTC 447 ms, as interpreted by me. Radiology/Procedures Radiology/Procedures One view chest x-ray did not show any focal consolidations, bony abnormality's, pneumothorax, as interpreted by me. Impressions: Nausea vomiting diarrhea Abdominal pain Elevated white blood cell count greater than 100,000 History of AML Colon cancer on active chemotherapy Hypokalemia Hypomagnesemia Course & Med Decision Making Course & Med Decision Making Pertinent Labs and Imaging studies reviewed. (See chart for details) Patient's vitals are nonacute. Her white blood cell count is greater than 100, 000. I spoke with Dr. Henderson with heme regarding the patient's previous history of AML and current blood work condition to vitals. He recommends admitting and rechecking labs in the morning. Upon further review she's had elevated white blood cell count close to 100,000 previously. She is in stable condition this time being admitted to the hospitalist with IV fluids. Magnesium and potassium are being replaced IV. Dragon Disclaimer Dragon Disclaimer This electronic medical record was generated, in whole or in part, using a voice recognition dictation system. Departure Departure Impression: Primary Impression: Elevated white blood cell count Additional Impression: Abdominal pain Disposition: 09 ADMITTED INPATIENT Admitting Physician: Cassandra Kemp Condition: STABLE Referrals: ZEHRA SMITH (PCP) Problem Qualifiers Primary Impression: Elevated white blood cell count Leukocytosis type: unspecified Qualified Codes: D72.829 - Elevated white blood cell count, unspecified Additional Impression: Abdominal pain Abdominal location: unspecified location Qualified Codes: R10.9 - Unspecified abdominal pain SOMMER HARDING MD Jul 29, 2017 16:20
[2017-07-29] MEDS ORDERED: IV NORMAL SALINE 1000ML BAG 1,000 ML IV SCH (16:42)
[2017-07-29 17:17] LABS: BASO # 0.7 x10^3/uL (0.0-0.2); BASO % 1 % (0-3); EOS % 0 % (0-3); HEMATOCRIT 36.7 % (36.0-47.0); LYMPH # 5.3 x10^3/uL (1.0-4.8); LYMPH % 5 % (24-48); MEAN CORPUSCULAR HEMOGLOBIN 31 pg (25-35); MEAN CORPUSCULAR HGB CONC 33 g/dL (31-37); MEAN CORPUSCULAR VOLUME 95 fL (79-100); MONO % 1 % (0-9); NEUT % 93 % (31-73); PLATELET COUNT 203 x10^3/uL (140-400); RED BLOOD COUNT 3.86 x10^6/uL (3.50-5.40); RED CELL DISTRIBUTION WIDTH 19.3 % (11.5-14.5)
[2017-07-29 17:23] LABS: WHITE BLOOD COUNT 102.2 x10^3/uL (4.0-11.0)
[2017-07-29] MEDS: fentaNYL PF VIAL 100 MCG/2 ML VIAL IV PRN ×2 (17:36→17:54)
[2017-07-29 17:39] LABS: ALBUMIN 3.6 g/dL (3.4-5.0); ALBUMIN/GLOBULIN RATIO 1.3 (1.0-1.7); CALCIUM 9.2 mg/dL (8.5-10.1); CREATININE 0.5 mg/dL (0.6-1.0); GFR 126.3; MAGNESIUM 1.6 mg/dL (1.8-2.4); TOTAL BILIRUBIN 0.5 mg/dL (0.2-1.0); TOTAL PROTEIN 6.4 g/dL (6.4-8.2)
[2017-07-29 17:41] LABS: POTASSIUM 2.9 mmol/L (3.5-5.1)
[2017-07-29 17:46] LABS: BILIRUBIN,URINE NEGATIVE (NEG); GLUCOSE,URINE NEGATIVE (NEG); NITRITE,URINE NEGATIVE (NEG); PROTEIN,URINE NEGATIVE (NEG-TRACE); UROBILINOGEN,URINE 0.2 mg/dL (0.2 mg/dL)
[2017-07-29 18:10] LABS: BACTERIA,URINE MODERATE /HPF (0-FEW); RBC,URINE 0 /HPF (0-2); SQUAMOUS EPITHELIAL CELL,UR MOD /LPF; WBC,URINE OCC /HPF (0-4)
[2017-07-29] MEDS ORDERED: MORPHINE SULFATE 4 MG/ML DISP.SYRIN. ONE (18:19)
[2017-07-29] MEDS: MORPHINE SULFATE 4 MG/ML DISP.SYRIN. IV/SQ PRN ×3 (18:21→19:41)
[2017-07-29 19:09] LABS: OVALOCYTES OCC; PLT ESTIMATE ADEQUATE (ADEQUATE); POLYCHROMASIA SLIGHT; SCHISTOCYTES OCC
[2017-07-29] MEDS ORDERED: ONDANSETRON PF 4 MG/2 ML VIAL. IV PRN (19:15)
[2017-07-29] MEDS ORDERED: IV DEXTROSE 5 %-0.45 % NACL 1,000 ML IV ONE (19:15)
[2017-07-29] MEDS ORDERED: MAGNESIUM SULFATE 2GM 50 ML IV ONE (19:15)
[2017-07-29 21:15] VITALS: BP 144/63
[2017-07-29] MEDS ORDERED: oxyCODONE/APAP 5/325 1 TAB TABLET PO PRN (21:30)
[2017-07-29] MEDS ORDERED: ALPRAZolam 0.5 MG TABLET PO PRN (21:30)
[2017-07-29] MEDS: POTASSIUM CHLORIDE 10MEQ 100 ML IV SCH ×3 (21:33→23:43)
[2017-07-29] MEDS ORDERED: PROCHLORPERAZINE 5 MG TABLET. PO PRN (21:45)
[2017-07-29] MEDS: ZOLPIDEM 5 MG TABLET. PO SCH (22:12)
[2017-07-29] MEDS ORDERED: POTASSIUM CHLORIDE 20 MEQ TABLET.ER. PO ONE (22:30)
[2017-07-29] MEDS ORDERED: POTASSIUM CHLORIDE 20 MEQ/15 ML ORAL LIQUID. PO SCH (22:30)
--- NOTE | 2017-07-29 22:32 | PDOC1 ---
History and Physical Date of Admission Date of Admission DATE: 07/29/17 TIME: 22:26 Identification/Chief Complaint Chief Complaint nausea and vomiting Problems: Source Source: Chart review, Patient History of Present Illness History of Present Illness Liana is a 61 year old female admit with acute and worsening weakness and dehydration. She has a recent history of colon cancer, s/ p 2 surgeries, and is actively on chemotherapy, seventh round and Q 2 weeks. nausea and weakenss and poor PO intake, recent neulasta, she feels terrible, weakness, nausea, no po intake > 2 days, w. vomiting. diarrhea never really resolved from before, may be worse the last few days some crampy pain, mild maybe 3 or 4 Past Medical History Cardiovascular: HTN GI: No pertinent hx Heme/Onc: Cancer, Other Psych: Other Rheumatologic: No pertinent hx Renal/: No pertinent hx Endocrine: Hypothyroidism Past Surgical History Past Surgical History: Appendectomy, Cholecystectomy, Colon Resection, Other Family History Family History: Hypothyroidism, Other Social History Smoke: No ALCOHOL: none Drugs: None Current Problem List Problem List Problems Medical Problems: (1) Abdominal pain Status: Acute Problems: Current Medications Current Medications Current Medications Sodium Chloride 1,000 ml @ 1,000 mls/hr Q1H IV Last administered on 07/29/17 17:05; Start 07/29/17 at 16:42; Stop 07/29/17 at 17:41; Status DC Fentanyl Citrate (Fentanyl 2ml Vial) 25 mcg PRN Q15MIN PRN IV PAIN GREATER THAN 3/10 Last administered on 07/29/17 17:54; Start 07/29/17 at 17:15; Stop 07/30/17 at 17:14 Morphine Sulfate 4 mg PRN Q15MIN PRN IV/SQ PAIN GREATER THAN 3/10 Last administered on 07/29/17 19:41; Start 07/29/17 at 18:30; Stop 07/30/17 at 18: 29 Morphine Sulfate 4 mg STK-MED ONCE .ROUTE ; Start 07/29/17 at 18:19; Stop at 18:20; Status DC Potassium Chloride 100 ml @ 100 mls/hr Q1H IV Last administered on 07/29/17 21:33; Start 07/29/17 at 19:30; Stop 07/29/17 at 23:29 Magnesium Sulfate/ Dextrose 50 ml @ 25 mls/hr 1X ONCE IV Last administered on 07/29/17 19:46; Start 07/29/17 at 19:15; Stop 07/29/17 at 21:14; Status DC Ondansetron HCl (Zofran) 4 mg PRN Q8HRS PRN IV NAUSEA/VOMITING Last administered on 07/29/17 19:51; Start 07/29/17 at 19:15; Stop 07/30/17 at 19: 14 Morphine Sulfate 4 mg PRN Q2HR PRN IV PAIN; Start 07/29/17 at 19:15; Stop 08/06 at 19:14 Dextrose/Sodium Chloride 1,000 ml @ 125 mls/hr 1X ONCE IV Last administered on 07/29/17 19:45; Start 07/29/17 at 19:15; Stop 07/30/17 at 03:14 Alprazolam (Xanax) 0.5 mg PRN Q8HRS PRN PO ANXIETY / AGITATION; Start 07/29/17 at 21:30 Levothyroxine Sodium (Synthroid) 50 mcg DAILY07 PO ; Start 07/30/17 at 09:00 Ondansetron HCl (Zofran Odt) 4 mg PRN Q8HRS PRN PO NAUSEA; Start 07/29/17 at 21 :30 Oxycodone/ Acetaminophen (Percocet 5/325) 1 tab PRN Q4HRS PRN PO PAIN; Start 07/29/17 at 21:30 Pantoprazole Sodium (Protonix) 40 mg BID PO ; Start 07/30/17 at 09:00 Zolpidem Tartrate (Ambien) 5 mg QHS PO ; Start 07/30/17 at 21:00; Stop at 21:00; Status DC Fentanyl Citrate (Fentanyl 2ml Vial) 50 mcg PRN Q2HRS PRN IV PAIN; Start at 21:45 Lisinopril (Prinivil) 20 mg DAILY PO ; Start 07/30/17 at 09:00 Prochlorperazine Maleate (Compazine) 10 mg PRN Q8HRS PRN PO NAUSEA/VOMITING; Start 07/29/17 at 21:45 Hydrochlorothiazide (Hydrodiuril) 25 mg DAILY PO ; Start 07/30/17 at 09:00 Zolpidem Tartrate (Ambien) 5 mg QHS PO Last administered on 07/29/17t 22:12; Start 07/29/17 at 22:15 Active Scripts Active Protonix (Pantoprazole Sodium) 40 Mg Tablet.dr 1 Tab PO BID Percocet 5-325 Mg Tablet (Oxycodone/Acetaminophen) 1 Each Tablet 1 Tab PO Q4- 6HRS Alprazolam 0.5 Mg Tablet 0.5 Mg PO PRN Q8HRS PRN Zofran Odt (Ondansetron) 4 Mg Tab.rapdis 1 Tab SL Q8HRS Compazine (Prochlorperazine Maleate) 10 Mg Tablet 10 Mg PO Q8HRS Reported Fentanyl 100 Mcg/2 ml Syringe (Fentanyl Citrate/Pf) 100 Mcg/2 Ml Syringe 50 Mcg IV PRN Q2HR PRN Lisinopril-Hctz 20-25 Mg Tab (Lisinopril/Hydrochlorothiazide) 1 Each Tablet 1 Tab PO DAILY Ambien (Zolpidem Tartrate) 5 Mg Tablet 1 Tab PO QHS Levothyroxine Sodium 50 Mcg Tablet 1 Tab PO DAILY Allergies Allergies: Coded Allergies: sulfamethoxazole (Verified Adverse Reaction, Intermediate, GI UPSET, ) trimethoprim (Verified Adverse Reaction, Intermediate, GI UPSET, 03/01/17) ROS General: No: Chills, Night Sweats, Fatigue, Malaise, Appetite, Other PSYCHOLOGICAL ROS: YES: Sleep disturbances, No: Anxiety, Behavioral Disorder, Concentration difficultie, Decreased libido , Depression, Disorientation, Hallucinations, Hostility, Irritablity, Memory difficulties, Mood Swings, Obsessive thoughts, Suicidal ideation, Other Eyes: No Blurry vision, No Decreased vision, No Double vision, No Dry eyes, No Excessive tearing, No Eye Pain, No Itchy Eyes, No Loss of vision, No Photophobia , No Scotomata, No Uses contacts, No Uses glasses, No Other HEENT: YES: Heacaches, No: Visual Changes, Hearing change, Nasal congestion, Nasal discharge, Oral lesions, Sinus pain, Sore Throat, Epistaxis, Sneezing, Snoring, Tinnitus, Vertigo, Vocal changes, Other Respiratory: No: Cough, Hemoptysis, Orthopnea, Pleuritic Pain, Shortness of breath, SOB with excertion, Sputum Changes, Stridor, Tachypnea, Wheezing, Other Cardiovascular: No Chest Pain, No Palpitations, No Orthopnea, No Paroxysmal Noc. Dyspnea, No Edema, No Lt Headedness, No Other Gastrointestinal: Yes Nausea, Yes Vomiting, Yes Abdominal Pain, Yes Diarrhea, No Constipation, No Melena, No Hematochezia, No Other Genitourinary: No Dysuria, No Frequency, No Incontinence, No Hematuria, No Retention, No Discharge, No Urgency, No Pain, No Flank Pain, No Other, No , No , No , No , No , No , No Musculoskeletal: Yes Joint Stiffness, No Gait Disturbance, No Joint Swelling, No Muscle Pain, No Muscular Weakness , No Pain In:, No Swelling In:, No Other Neurological: No Behavorial Changes, No Bowel/Bladder ControlChng, No Confusion , No Dizziness, No Gait Disturbance, No Headaches, No Impaired Coord/balance, No Memory Loss, No Numbness/Tingling, No Seizures, No Speech Problems, No Tremors, No Visual Changes, No Weakness, No Other Skin: Yes Dry Skin, No Eczema, No Hair Changes, No Lumps, No Mole Changes, No Mottling, No Nail Changes, No Pruritus, No Rash, No Skin Lesion Changes, No Other, No Acne Physical Exam General: Alert, Oriented X3, Cooperative, No acute distress HEENT: EOMI, Mucous membr. moist/pink Lungs: Normal air movement Heart: no gallops, no murmurs Abdomen: Normal bowel sounds, Soft Extremities: No clubbing, Normal pulses Skin: No breakdown, No significant lesion, Other (poor turgor, dry) Neuro: Sensation intact Psych/Mental Status: Mental status NL, Mood NL, Other (mood is much more postive than before) Vitals Vitals Vital Signs Date Time Temp Pulse Resp B/P (MAP) Pulse Ox O2 Delivery O2 Flow Rate FiO2 07/29/17 21:15 97.9 59 18 144/63 (90) 97 Room Air 97.9 Labs Labs Laboratory Tests Test 07/29/17 17:00 07/29/17 17:30 White Blood Count 102.2 x10^3/uL (4.0-11.0) Red Blood Count 3.86 x10^6/uL (3.50-5.40) Hemoglobin 12.0 g/dL (12.0-15.5) Hematocrit 36.7 % (36.0-47.0) Mean Corpuscular Volume 95 fL (79-100) Mean Corpuscular Hemoglobin 31 pg (25-35) Mean Corpuscular Hemoglobin Concent 33 g/dL (31-37) Red Cell Distribution Width 19.3 % (11.5-14.5) Platelet Count 203 x10^3/uL (140-400) Neutrophils (%) (Auto) 93 % (31-73) Lymphocytes (%) (Auto) 5 % (24-48) Monocytes (%) (Auto) 1 % (0-9) Eosinophils (%) (Auto) 0 % (0-3) Basophils (%) (Auto) 1 % (0-3) Neutrophils # (Auto) 94.7 x10^3uL (1.8-7.7) Lymphocytes # (Auto) 5.3 x10^3/uL (1.0-4.8) Monocytes # (Auto) 1.3 x10^3/uL (0.0-1.1) Eosinophils # (Auto) 0.2 x10^3/uL (0.0-0.7) Basophils # (Auto) 0.7 x10^3/uL (0.0-0.2) Segmented Neutrophils % 93 % (35-66) Lymphocytes % 6 % (24-48) Monocytes % 1 % (0-10) Platelet Estimate Adequate (ADEQUATE) Polychromasia Slight Ovalocytes Occ Schistocytes Occ Sodium Level 138 mmol/L (136-145) Potassium Level 2.9 mmol/L (3.5-5.1) Chloride Level 100 mmol/L (98-107) Carbon Dioxide Level 29 mmol/L (21-32) Anion Gap 9 (6-14) Blood Urea Nitrogen 16 mg/dL (7-20) Creatinine 0.5 mg/dL (0.6-1.0) Estimated GFR (Cockcroft-Gault) 126.3 BUN/Creatinine Ratio 32 (6-20) Glucose Level 85 mg/dL (70-99) Lactic Acid Level 1.9 mmol/L (0.4-2.0) Calcium Level 9.2 mg/dL (8.5-10.1) Magnesium Level 1.6 mg/dL (1.8-2.4) Total Bilirubin 0.5 mg/dL (0.2-1.0) Aspartate Amino Transf (AST/SGOT) 13 U/L (15-37) Alanine Aminotransferase (ALT/SGPT) 21 U/L (14-59) Alkaline Phosphatase 224 U/L (46-116) Total Protein 6.4 g/dL (6.4-8.2) Albumin 3.6 g/dL (3.4-5.0) Albumin/Globulin Ratio 1.3 (1.0-1.7) Urine Collection Type Unknown Urine Color Yellow Urine Clarity Clear Urine pH 6.0 Urine Specific [place] 1.020 Urine Protein Negative mg/dL (NEG-TRACE) Urine Glucose (UA) Negative mg/dL (NEG) Urine Ketones (Stick) Negative mg/dL (NEG) Urine Blood Negative (NEG) Urine Nitrite Negative (NEG) Urine Bilirubin Negative (NEG) Urine Urobilinogen Dipstick 0.2 mg/dL (0.2 mg/dL) Urine Leukocyte Esterase Trace (NEG) Urine RBC 0 /HPF (0-2) Urine WBC Occ /HPF (0-4) Urine Squamous Epithelial Cells Mod /LPF Urine Bacteria Moderate /HPF (0-FEW) Urine Mucus Marked /LPF Laboratory Tests Test 07/29/17 17:00 07/29/17 17:30 White Blood Count 102.2 x10^3/uL (4.0-11.0) Red Blood Count 3.86 x10^6/uL (3.50-5.40) Hemoglobin 12.0 g/dL (12.0-15.5) Hematocrit 36.7 % (36.0-47.0) Mean Corpuscular Volume 95 fL (79-100) Mean Corpuscular Hemoglobin 31 pg (25-35) Mean Corpuscular Hemoglobin Concent 33 g/dL (31-37) Red Cell Distribution Width 19.3 % (11.5-14.5) Platelet Count 203 x10^3/uL (140-400) Neutrophils (%) (Auto) 93 % (31-73) Lymphocytes (%) (Auto) 5 % (24-48) Monocytes (%) (Auto) 1 % (0-9) Eosinophils (%) (Auto) 0 % (0-3) Basophils (%) (Auto) 1 % (0-3) Neutrophils # (Auto) 94.7 x10^3uL (1.8-7.7) Lymphocytes # (Auto) 5.3 x10^3/uL (1.0-4.8) Monocytes # (Auto) 1.3 x10^3/uL (0.0-1.1) Eosinophils # (Auto) 0.2 x10^3/uL (0.0-0.7) Basophils # (Auto) 0.7 x10^3/uL (0.0-0.2) Segmented Neutrophils % 93 % (35-66) Lymphocytes % 6 % (24-48) Monocytes % 1 % (0-10) Platelet Estimate Adequate (ADEQUATE) Polychromasia Slight Ovalocytes Occ Schistocytes Occ Sodium Level 138 mmol/L (136-145) Potassium Level 2.9 mmol/L (3.5-5.1) Chloride Level 100 mmol/L (98-107) Carbon Dioxide Level 29 mmol/L (21-32) Anion Gap 9 (6-14) Blood Urea Nitrogen 16 mg/dL (7-20) Creatinine 0.5 mg/dL (0.6-1.0) Estimated GFR (Cockcroft-Gault) 126.3 BUN/Creatinine Ratio 32 (6-20) Glucose Level 85 mg/dL (70-99) Lactic Acid Level 1.9 mmol/L (0.4-2.0) Calcium Level 9.2 mg/dL (8.5-10.1) Magnesium Level 1.6 mg/dL (1.8-2.4) Total Bilirubin 0.5 mg/dL (0.2-1.0) Aspartate Amino Transf (AST/SGOT) 13 U/L (15-37) Alanine Aminotransferase (ALT/SGPT) 21 U/L (14-59) Alkaline Phosphatase 224 U/L (46-116) Total Protein 6.4 g/dL (6.4-8.2) Albumin 3.6 g/dL (3.4-5.0) Albumin/Globulin Ratio 1.3 (1.0-1.7) Urine Collection Type Unknown Urine Color Yellow Urine Clarity Clear Urine pH 6.0 Urine Specific [place] 1.020 Urine Protein Negative mg/dL (NEG-TRACE) Urine Glucose (UA) Negative mg/dL (NEG) Urine Ketones (Stick) Negative mg/dL (NEG) Urine Blood Negative (NEG) Urine Nitrite Negative (NEG) Urine Bilirubin Negative (NEG) Urine Urobilinogen Dipstick 0.2 mg/dL (0.2 mg/dL) Urine Leukocyte Esterase Trace (NEG) Urine RBC 0 /HPF (0-2) Urine WBC Occ /HPF (0-4) Urine Squamous Epithelial Cells Mod /LPF Urine Bacteria Moderate /HPF (0-FEW) Urine Mucus Marked /LPF VTE Prophylaxis Ordered VTE Prophylaxis Devices: Yes VTE Pharmacological Prophylaxi: Yes Assessment/Plan Assessment/Plan nausea and vomiting dehydration chronic diarrhea hypokalemia, critical, w/ hypomag, replace alarmingly high leukocytosis, recent neulasta, prior prominent response, Dr. Henderson from [facility] reviewed labs tonight, will hydrate and recheck, Dr. Corona consulted to follow Colon Cancer, metastatic, recent chemo, she has remote history of leukemia, admit BETTINA SORIA MD Jul 29, 2017 22:32
[2017-07-29 23:15] VITALS: BP 111/48
[2017-07-29] MEDS: ENOXAPARIN 40 MG/0.4 ML SYRINGE. SQ SCH (23:17)
[2017-07-30] MEDS: POTASSIUM CHLORIDE 10MEQ 100 ML IV SCH (00:46)
[2017-07-30 03:15] VITALS: BP 107/51
[2017-07-30 04:39] LABS: BASO # 0.3 x10^3/uL (0.0-0.2); BASO % 0 % (0-3); EOS % 1 % (0-3); HEMOGLOBIN 11.1 g/dL (12.0-15.5); LYMPH # 4.5 x10^3/uL (1.0-4.8); LYMPH % 6 % (24-48); MEAN CORPUSCULAR HEMOGLOBIN 31 pg (25-35); MEAN CORPUSCULAR HGB CONC 33 g/dL (31-37); MEAN CORPUSCULAR VOLUME 96 fL (79-100); MONO % 2 % (0-9); NEUT % 91 % (31-73); PLATELET COUNT 166 x10^3/uL (140-400); RED BLOOD COUNT 3.54 x10^6/uL (3.50-5.40); RED CELL DISTRIBUTION WIDTH 19.1 % (11.5-14.5)
[2017-07-30 05:07] LABS: WHITE BLOOD COUNT 72.1 x10^3/uL (4.0-11.0)
[2017-07-30 05:19] LABS: ALBUMIN 3.2 g/dL (3.4-5.0); ALBUMIN/GLOBULIN RATIO 1.2 (1.0-1.7); CREATININE 0.6 mg/dL (0.6-1.0); GFR 102.3; POTASSIUM 3.3 mmol/L (3.5-5.1); TOTAL BILIRUBIN 0.5 mg/dL (0.2-1.0); TOTAL PROTEIN 5.9 g/dL (6.4-8.2)
--- NOTE | 2017-07-30 06:46 | EKG ---
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
[2017-07-30 07:00] VITALS: BP 115/58
--- NOTE | 2017-07-30 08:04 | RAD ---
Indication cough weakness. Hypertension. Protocol study. A single view of the chest was obtained. Comparison is made to an examination 07/07/2017. The heart and pulmonary vessels appear normal. The lungs are clear. Right Port-A-Cath is noted. There has not been a significant change in the appearance of the chest compared to the previous exam. IMPRESSION:: No acute or focal process. No significant change
[2017-07-30] MEDS: hydroCHLOROthiazide 25 MG TABLET PO SCH (08:28)
[2017-07-30] MEDS: ONDANSETRON ODT 4 MG TAB.RAPDIS. PO PRN (08:29)
[2017-07-30] MEDS: POTASSIUM CHLORIDE 20 MEQ TABLET.ER. PO SCH (08:29)
[2017-07-30] MEDS: LEVOTHYROXINE 50 MCG TABLET PO SCH (08:29)
[2017-07-30] MEDS: LISINOPRIL 20 MG TABLET PO SCH (08:29)
[2017-07-30] MEDS: PANTOPRAZOLE 40 MG TABLET.DR. PO SCH ×2 (08:30→21:35)
[2017-07-30] MEDS ORDERED: POTASSIUM CHLORIDE 20 MEQ TABLET.ER. PO PRN (09:00)
[2017-07-30] MEDS ORDERED: MAGNESIUM SULFATE 2GM 50 ML IV ONE (09:30)
--- NOTE | 2017-07-30 09:42 | PDOC ---
PROGRESS NOTES Chief Complaint Chief Complaint N/V/D Leukocytosis ASSESSMENT AND PLAN: 1. N/V/D: chemo induced. improving. cont symptomatic rx 2. Hypokalemia/Hypomagnesemia: mod-severe. 2/2 GI losses. replete IV/PO. monitor closely 3. Dehydration: replete IV, PO when tolerating 4. Leukocytosis: 2/2 neulasta with exuberant BM response. improving. no intervention indicated 5. Colon CA: metastatic. chemo as per H/O 6. Hx AML 7. Prophylaxis: lovenox, PPI History of Present Illness History of Present Illness feels better. diarrhea x3 O/N Vitals Vitals Vital Signs Date Time Temp Pulse Resp B/P (MAP) Pulse Ox O2 Delivery O2 Flow Rate FiO2 07/30/17 08:50 Room Air 07/30/17 08:29 56 115/58 07/30/17 07:00 98.2 16 99 98.2 Physical Exam General: Alert, Oriented X3, Cooperative, No acute distress Heart: Regular rate Lungs: Clear Abdomen: Normal bowel sounds, Soft, Other (TTP throughout with anticipation) Extremities: No clubbing, Normal pulses Skin: No rashes Labs LABS Laboratory Tests Test 07/29/17 17:00 07/29/17 17:30 07/30/17 04:10 White Blood Count 102.2 x10^3/uL (4.0-11.0) 72.1 x10^3/uL (4.0-11.0) Red Blood Count 3.86 x10^6/uL (3.50-5.40) 3.54 x10^6/uL (3.50-5.40) Hemoglobin 12.0 g/dL (12.0-15.5) 11.1 g/dL (12.0-15.5) Hematocrit 36.7 % (36.0-47.0) 34.0 % (36.0-47.0) Mean Corpuscular Volume 95 fL (79-100) 96 fL (79-100) Mean Corpuscular Hemoglobin 31 pg (25-35) 31 pg (25-35) Mean Corpuscular Hemoglobin Concent 33 g/dL (31-37) 33 g/dL (31-37) Red Cell Distribution Width 19.3 % (11.5-14.5) 19.1 % (11.5-14.5) Platelet Count 203 x10^3/uL (140-400) 166 x10^3/uL (140-400) Neutrophils (%) (Auto) 93 % (31-73) 91 % (31-73) Lymphocytes (%) (Auto) 5 % (24-48) 6 % (24-48) Monocytes (%) (Auto) 1 % (0-9) 2 % (0-9) Eosinophils (%) (Auto) 0 % (0-3) 1 % (0-3) Basophils (%) (Auto) 1 % (0-3) 0 % (0-3) Neutrophils # (Auto) 94.7 x10^3uL (1.8-7.7) 65.2 x10^3uL (1.8-7.7) Lymphocytes # (Auto) 5.3 x10^3/uL (1.0-4.8) 4.5 x10^3/uL (1.0-4.8) Monocytes # (Auto) 1.3 x10^3/uL (0.0-1.1) 1.6 x10^3/uL (0.0-1.1) Eosinophils # (Auto) 0.2 x10^3/uL (0.0-0.7) 0.4 x10^3/uL (0.0-0.7) Basophils # (Auto) 0.7 x10^3/uL (0.0-0.2) 0.3 x10^3/uL (0.0-0.2) Segmented Neutrophils % 93 % (35-66) Lymphocytes % 6 % (24-48) Monocytes % 1 % (0-10) Platelet Estimate Adequate (ADEQUATE) Polychromasia Slight Ovalocytes Occ Schistocytes Occ Sodium Level 138 mmol/L (136-145) 138 mmol/L (136-145) Potassium Level 2.9 mmol/L (3.5-5.1) 3.3 mmol/L (3.5-5.1) Chloride Level 100 mmol/L (98-107) 102 mmol/L (98-107) Carbon Dioxide Level 29 mmol/L (21-32) 28 mmol/L (21-32) Anion Gap 9 (6-14) 8 (6-14) Blood Urea Nitrogen 16 mg/dL (7-20) 9 mg/dL (7-20) Creatinine 0.5 mg/dL (0.6-1.0) 0.6 mg/dL (0.6-1.0) Estimated GFR (Cockcroft-Gault) 126.3 102.3 BUN/Creatinine Ratio 32 (6-20) 15 (6-20) Glucose Level 85 mg/dL (70-99) 71 mg/dL (70-99) Lactic Acid Level 1.9 mmol/L (0.4-2.0) Calcium Level 9.2 mg/dL (8.5-10.1) 8.0 mg/dL (8.5-10.1) Magnesium Level 1.6 mg/dL (1.8-2.4) Total Bilirubin 0.5 mg/dL (0.2-1.0) 0.5 mg/dL (0.2-1.0) Aspartate Amino Transf (AST/SGOT) 13 U/L (15-37) 9 U/L (15-37) Alanine Aminotransferase (ALT/SGPT) 21 U/L (14-59) 22 U/L (14-59) Alkaline Phosphatase 224 U/L (46-116) 222 U/L (46-116) Total Protein 6.4 g/dL (6.4-8.2) 5.9 g/dL (6.4-8.2) Albumin 3.6 g/dL (3.4-5.0) 3.2 g/dL (3.4-5.0) Albumin/Globulin Ratio 1.3 (1.0-1.7) 1.2 (1.0-1.7) Urine Collection Type Unknown Urine Color Yellow Urine Clarity Clear Urine pH 6.0 Urine Specific [place] 1.020 Urine Protein Negative mg/dL (NEG-TRACE) Urine Glucose (UA) Negative mg/dL (NEG) Urine Ketones (Stick) Negative mg/dL (NEG) Urine Blood Negative (NEG) Urine Nitrite Negative (NEG) Urine Bilirubin Negative (NEG) Urine Urobilinogen Dipstick 0.2 mg/dL (0.2 mg/dL) Urine Leukocyte Esterase Trace (NEG) Urine RBC 0 /HPF (0-2) Urine WBC Occ /HPF (0-4) Urine Squamous Epithelial Cells Mod /LPF Urine Bacteria Moderate /HPF (0-FEW) Urine Mucus Marked /LPF JEANNA ALBERT MD Jul 30, 2017 09:42
[2017-07-30 11:00] VITALS: BP 120/52
[2017-07-30] MEDS: MORPHINE SULFATE 4 MG/ML DISP.SYRIN. IV PRN ×2 (11:03→14:14)
[2017-07-30 11:42] LABS: PLT ESTIMATE ADEQUATE (ADEQUATE)
[2017-07-30 11:43] LABS: ANISOCYTOSIS PRESENT; OVALOCYTES FEW; SCHISTOCYTES OCC; TEAR DROP CELLS FEW
[2017-07-30 15:00] VITALS: BP 134/59
[2017-07-30 19:00] VITALS: BP 125/53
[2017-07-30] MEDS: fentaNYL PF VIAL 100 MCG/2 ML VIAL IV PRN (19:46)
--- NOTE | 2017-07-30 19:48 | CONS ---
DATE OF CONSULTATION: 07/30/2017 REQUESTING PHYSICIAN: Dr. Cassandra Kemp. REASON FOR CONSULTATION: Colon cancer and severe leukocytosis. HISTORY OF PRESENT ILLNESS: The patient is a 61-year-old female who has had a history of constipation and abdominal pain since 07/2016. She presented to the Emergency Room in 01/2017. CT scan of the abdomen and pelvis on 01/25/2017 revealed a mass involving the transverse colon with evidence of paracolic and omental nodules suggestive of metastatic disease. She underwent partial colectomy on 01/27/2017 which revealed evidence of colon cancer with mesenteric involvement, extensive omentum caking and diffuse metastasis throughout the peritoneal cavity and a large obstructing mass of the left transverse colon. She was started on palliative chemotherapy with FOLFOX and Avastin. She received cycle #7 on 07/23/2017 followed by Neulasta. She was admitted to [facility] on 07/29/2017 with complaints of nausea and vomiting. She was noted to have severe leukocytosis with a WBC count of 102.2 on 07/29/2017 and hence, I was consulted. PAST MEDICAL HISTORY: Acute myelogenous leukemia, ERCP pancreatitis, hypertension, hypothyroidism, thyroidectomy, appendectomy, cholecystectomy, hysterectomy, tonsillectomy. FAMILY HISTORY: Positive for hairy cell leukemia and renal cell carcinoma. SOCIAL HISTORY: She has history of smoking 1 pack of cigarettes per day. REVIEW OF SYSTEMS: A 12-point review of system was performed. Pertinent positives are mentioned in the history of present illness. Rest of the system review is negative. PHYSICAL EXAMINATION: GENERAL APPEARANCE: The patient is a 61-year-old female who is in no acute cardiorespiratory distress. VITAL SIGNS: Blood pressure 134/59, temperature 98.4. HEENT: Head: Atraumatic, normocephalic. Eyes: No icterus. NECK: Supple. CHEST: Bilaterally symmetrical. No crepitations or rhonchi heard. HEART: S1, S2 normal. ABDOMEN: Soft, nontender. CENTRAL NERVOUS SYSTEM: No focal deficits. LYMPHATICS: No lymphadenopathy. SKIN: No rashes. PSYCHOLOGIC: Mood and affect are appropriate. MUSCULOSKELETAL: No joint effusions. LABORATORY DATA: On 07/30/2017, WBC 72.1, hemoglobin 11.1, platelet count 166. IMPRESSION AND PLAN: 1. Stage IV colon cancer with evidence of peritoneal and omental metastatic disease, stage IV. She received cycle #7 of chemotherapy with FOLFOX and Avastin on 07/23/2017. I will plan to resume chemotherapy next week. 2. Severe leukocytosis due to Neulasta. I do not suspect any recurrent leukemia. I will continue to monitor. 3. Nausea and vomiting due to chemotherapy. Continue antiemetics and supportive care. AP SAM MD DR: [email or web address]/nts JOB#: [id number] / [id number] MTDD
[2017-07-30] MEDS ORDERED: ZOLPIDEM 5 MG TABLET. PO SCH (21:00)
[2017-07-30] MEDS: ZOLPIDEM 5 MG TABLET. PO SCH (21:35)
[2017-07-30] MEDS: ENOXAPARIN 40 MG/0.4 ML SYRINGE. SQ SCH (21:36)
[2017-07-30 23:05] VITALS: BP 113/49
[2017-07-31] MEDS: fentaNYL PF VIAL 100 MCG/2 ML VIAL IV PRN (00:01)
[2017-07-31] MEDS: ONDANSETRON ODT 4 MG TAB.RAPDIS. PO PRN (02:49)
[2017-07-31 03:05] VITALS: BP 120/55
[2017-07-31] MEDS: LEVOTHYROXINE 50 MCG TABLET PO SCH (06:10)
[2017-07-31 06:55] VITALS: BP 124/66
[2017-07-31] MEDS: POTASSIUM CHLORIDE 20 MEQ TABLET.ER. PO SCH (08:03)
[2017-07-31] MEDS: PANTOPRAZOLE 40 MG TABLET.DR. PO SCH (08:03)
[2017-07-31] MEDS: hydroCHLOROthiazide 25 MG TABLET PO SCH (08:03)
[2017-07-31] MEDS: LISINOPRIL 20 MG TABLET PO SCH (08:03)
--- NOTE | 2017-07-31 09:40 | PDOC ---
PROGRESS NOTES Subjective Subjective HPI -Stage IV colon cancer with evidence of peritoneal and omental metastatic disease, stage IV. ROS - n/v better Objective Objective Vital Signs Date Time Temp Pulse Resp B/P (MAP) Pulse Ox O2 Delivery O2 Flow Rate FiO2 07/31/17 08:05 Room Air 07/31/17 08:03 52 124/66 07/31/17 06:55 97.9 18 98 97.9 Physical Exam Heart: Normal S1, Normal S2 General: Alert, Oriented X3, No acute distress Lungs: Clear to auscultation, Normal air movement Neuro: Normal speech Psych/Mental Status: Mental status NL Assessment Assessment Problems Medical Problems: (1) Abdominal pain Status: Acute IMPRESSION AND PLAN: 1. Stage IV colon cancer with evidence of peritoneal and omental metastatic disease, stage IV. She received cycle #7 of chemotherapy with FOLFOX and Avastin on 07/23/2017. I will plan to resume chemotherapy next week. 2. Severe leukocytosis due to Neulasta. I do not suspect any recurrent leukemia. I will continue to monitor. 3. Nausea and vomiting due to chemotherapy. Continue antiemetics and supportive care. Improved. Ok to d/c home when ok with Dr Prince. Comment Review of Relevant I have reviewed the following items siena (where applicable) has been applied. Labs Laboratory Tests Test 07/29/17 17:00 07/29/17 17:30 07/30/17 04:10 White Blood Count 102.2 x10^3/uL (4.0-11.0) 72.1 x10^3/uL (4.0-11.0) Red Blood Count 3.86 x10^6/uL (3.50-5.40) 3.54 x10^6/uL (3.50-5.40) Hemoglobin 12.0 g/dL (12.0-15.5) 11.1 g/dL (12.0-15.5) Hematocrit 36.7 % (36.0-47.0) 34.0 % (36.0-47.0) Mean Corpuscular Volume 95 fL (79-100) 96 fL (79-100) Mean Corpuscular Hemoglobin 31 pg (25-35) 31 pg (25-35) Mean Corpuscular Hemoglobin Concent 33 g/dL (31-37) 33 g/dL (31-37) Red Cell Distribution Width 19.3 % (11.5-14.5) 19.1 % (11.5-14.5) Platelet Count 203 x10^3/uL (140-400) 166 x10^3/uL (140-400) Neutrophils (%) (Auto) 93 % (31-73) 91 % (31-73) Lymphocytes (%) (Auto) 5 % (24-48) 6 % (24-48) Monocytes (%) (Auto) 1 % (0-9) 2 % (0-9) Eosinophils (%) (Auto) 0 % (0-3) 1 % (0-3) Basophils (%) (Auto) 1 % (0-3) 0 % (0-3) Neutrophils # (Auto) 94.7 x10^3uL (1.8-7.7) 65.2 x10^3uL (1.8-7.7) Lymphocytes # (Auto) 5.3 x10^3/uL (1.0-4.8) 4.5 x10^3/uL (1.0-4.8) Monocytes # (Auto) 1.3 x10^3/uL (0.0-1.1) 1.6 x10^3/uL (0.0-1.1) Eosinophils # (Auto) 0.2 x10^3/uL (0.0-0.7) 0.4 x10^3/uL (0.0-0.7) Basophils # (Auto) 0.7 x10^3/uL (0.0-0.2) 0.3 x10^3/uL (0.0-0.2) Segmented Neutrophils % 93 % (35-66) 67 % (35-66) Lymphocytes % 6 % (24-48) 8 % (24-48) Monocytes % 1 % (0-10) 1 % (0-10) Platelet Estimate Adequate (ADEQUATE) Adequate (ADEQUATE) Polychromasia Slight Ovalocytes Occ Few Schistocytes Occ Occ Sodium Level 138 mmol/L (136-145) 138 mmol/L (136-145) Potassium Level 2.9 mmol/L (3.5-5.1) 3.3 mmol/L (3.5-5.1) Chloride Level 100 mmol/L (98-107) 102 mmol/L (98-107) Carbon Dioxide Level 29 mmol/L (21-32) 28 mmol/L (21-32) Anion Gap 9 (6-14) 8 (6-14) Blood Urea Nitrogen 16 mg/dL (7-20) 9 mg/dL (7-20) Creatinine 0.5 mg/dL (0.6-1.0) 0.6 mg/dL (0.6-1.0) Estimated GFR (Cockcroft-Gault) 126.3 102.3 BUN/Creatinine Ratio 32 (6-20) 15 (6-20) Glucose Level 85 mg/dL (70-99) 71 mg/dL (70-99) Lactic Acid Level 1.9 mmol/L (0.4-2.0) Calcium Level 9.2 mg/dL (8.5-10.1) 8.0 mg/dL (8.5-10.1) Magnesium Level 1.6 mg/dL (1.8-2.4) Total Bilirubin 0.5 mg/dL (0.2-1.0) 0.5 mg/dL (0.2-1.0) Aspartate Amino Transf (AST/SGOT) 13 U/L (15-37) 9 U/L (15-37) Alanine Aminotransferase (ALT/SGPT) 21 U/L (14-59) 22 U/L (14-59) Alkaline Phosphatase 224 U/L (46-116) 222 U/L (46-116) Total Protein 6.4 g/dL (6.4-8.2) 5.9 g/dL (6.4-8.2) Albumin 3.6 g/dL (3.4-5.0) 3.2 g/dL (3.4-5.0) Albumin/Globulin Ratio 1.3 (1.0-1.7) 1.2 (1.0-1.7) Urine Collection Type Unknown Urine Color Yellow Urine Clarity Clear Urine pH 6.0 Urine Specific [place] 1.020 Urine Protein Negative mg/dL (NEG-TRACE) Urine Glucose (UA) Negative mg/dL (NEG) Urine Ketones (Stick) Negative mg/dL (NEG) Urine Blood Negative (NEG) Urine Nitrite Negative (NEG) Urine Bilirubin Negative (NEG) Urine Urobilinogen Dipstick 0.2 mg/dL (0.2 mg/dL) Urine Leukocyte Esterase Trace (NEG) Urine RBC 0 /HPF (0-2) Urine WBC Occ /HPF (0-4) Urine Squamous Epithelial Cells Mod /LPF Urine Bacteria Moderate /HPF (0-FEW) Urine Mucus Marked /LPF Band Neutrophils % 23 % (0-9) Myelocytes % 1 % (0-0) Anisocytosis Present Tear Drop Cells Few Microbiology 07/29/17 Blood Culture - Preliminary, Resulted NO GROWTH AFTER 1 DAY 07/29/17 Urine Culture - Preliminary, Resulted 07/29/17 Urine Culture Result 1 (WADE) - Preliminary, Resulted Medications Current Medications Sodium Chloride 1,000 ml @ 1,000 mls/hr Q1H IV Last administered on 07/29/17 17:05; Start 07/29/17 at 16:42; Stop 07/29/17 at 17:41; Status DC Fentanyl Citrate (Fentanyl 2ml Vial) 25 mcg PRN Q15MIN PRN IV PAIN GREATER THAN 3/10 Last administered on 07/29/17 17:54; Start 07/29/17 at 17:15; Stop 07/30/17 at 17:14; Status DC Morphine Sulfate 4 mg PRN Q15MIN PRN IV/SQ PAIN GREATER THAN 3/10 Last administered on 07/29/17 19:41; Start 07/29/17 at 18:30; Stop 07/30/17 at 18: 29; Status DC Morphine Sulfate 4 mg STK-MED ONCE .ROUTE ; Start 07/29/17 at 18:19; Stop at 18:20; Status DC Potassium Chloride 100 ml @ 100 mls/hr Q1H IV Last administered on 07/30/17 00:46; Start 07/29/17 at 19:30; Stop 07/29/17 at 23:29; Status DC Magnesium Sulfate/ Dextrose 50 ml @ 25 mls/hr 1X ONCE IV Last administered on 07/29/17 19:46; Start 07/29/17 at 19:15; Stop 07/29/17 at 21:14; Status DC Ondansetron HCl (Zofran) 4 mg PRN Q8HRS PRN IV NAUSEA/VOMITING Last administered on 07/29/17 19:51; Start 07/29/17 at 19:15; Stop 07/29/17 at 22:37 ; Status DC Morphine Sulfate 4 mg PRN Q2HR PRN IV PAIN Last administered on 07/30/17 14: 14; Start 07/29/17 at 19:15; Stop 07/30/17 at 19:14; Status DC Dextrose/Sodium Chloride 1,000 ml @ 125 mls/hr 1X ONCE IV Last administered on 07/29/17 19:45; Start 07/29/17 at 19:15; Stop 07/30/17 at 03:14; Status DC Alprazolam (Xanax) 0.5 mg PRN Q8HRS PRN PO ANXIETY / AGITATION Last administered on 07/30/17 17:37; Start 07/29/17 at 21:30 Levothyroxine Sodium (Synthroid) 50 mcg DAILY07 PO Last administered on 06:10; Start 07/30/17 at 09:00 Ondansetron HCl (Zofran Odt) 4 mg PRN Q8HRS PRN PO NAUSEA Last administered on 07/31/17 02:49; Start 07/29/17 at 21:30 Oxycodone/ Acetaminophen (Percocet 5/325) 1 tab PRN Q4HRS PRN PO PAIN; Start 07/29/17 at 21:30 Pantoprazole Sodium (Protonix) 40 mg BID PO Last administered on 07/31/17 08: 03; Start 07/30/17 at 09:00 Zolpidem Tartrate (Ambien) 5 mg QHS PO ; Start 07/30/17 at 21:00; Stop at 21:00; Status DC Fentanyl Citrate (Fentanyl 2ml Vial) 50 mcg PRN Q2HRS PRN IV PAIN Last administered on 07/31/17 00:01; Start 07/29/17 at 21:45 Lisinopril (Prinivil) 20 mg DAILY PO Last administered on 07/31/17 08:03; Start 07/30/17 at 09:00 Prochlorperazine Maleate (Compazine) 10 mg PRN Q8HRS PRN PO NAUSEA/VOMITING; Start 07/29/17 at 21:45 Hydrochlorothiazide (Hydrodiuril) 25 mg DAILY PO Last administered on 08:03; Start 07/30/17 at 09:00 Zolpidem Tartrate (Ambien) 5 mg QHS PO Last administered on 07/30/17 21:35; Start 07/29/17 at 22:15 Potassium Chloride (Klor-Con) 20 meq DAILYWBKFT PO Last administered on 08:03; Start 07/30/17 at 08:00 Potassium Chloride (Klor-Con) 40 meq 1X ONCE PO ; Start 07/29/17 at 22:30; Stop 07/29/17 at 22:53; Status DC Potassium Chloride (KCl Oral Soln) 40 meq Q4H PO ; Start 07/29/17 at 22:30; Stop 07/29/17 at 22:50; Status DC Magnesium Sulfate/ Dextrose 50 ml @ 25 mls/hr 1X ONCE IV Last administered on 07/30/17 08:30; Start 07/30/17 at 09:30; Stop 07/30/17 at 11:29; Status DC Enoxaparin Sodium (Lovenox Per Pharmacy Prophylaxis Dosing) 1 each PRN DAILY PRN MC SEE COMMENTS; Start 07/29/17 at 22:30; Stop 07/30/17 at 18:27; Status DC Enoxaparin Sodium (Lovenox 40mg Syringe) 40 mg Q24H SQ Last administered on 21:36; Start 07/29/17 at 22:30 Potassium Chloride (Klor-Con) 40 meq PRN Q4HRS PRN PO SEE COMMENTS BELOW PER K+ LEVEL; Start 07/30/17 at 09:00 Active Scripts Active Protonix (Pantoprazole Sodium) 40 Mg Tablet.dr 1 Tab PO BID Percocet 5-325 Mg Tablet (Oxycodone/Acetaminophen) 1 Each Tablet 1 Tab PO Q4- 6HRS Alprazolam 0.5 Mg Tablet 0.5 Mg PO PRN Q8HRS PRN Zofran Odt (Ondansetron) 4 Mg Tab.rapdis 1 Tab SL Q8HRS Compazine (Prochlorperazine Maleate) 10 Mg Tablet 10 Mg PO Q8HRS Reported Fentanyl 100 Mcg/2 ml Syringe (Fentanyl Citrate/Pf) 100 Mcg/2 Ml Syringe 50 Mcg IV PRN Q2HR PRN Lisinopril-Hctz 20-25 Mg Tab (Lisinopril/Hydrochlorothiazide) 1 Each Tablet 1 Tab PO DAILY Ambien (Zolpidem Tartrate) 5 Mg Tablet 1 Tab PO QHS Levothyroxine Sodium 50 Mcg Tablet 1 Tab PO DAILY Vitals/I & O Vital Sign - Last 24 Hours 07/30/17 07/30/17 07/30/17 07/30/17 11:00 11:03 14:14 14:45 Temp 98.3 98.3 Pulse 55 Resp 16 B/P (MAP) 120/52 (74) Pulse Ox 97 99 99 99 O2 Delivery Room Air Room Air Room Air Room Air 07/30/17 07/30/17 07/30/17 07/30/17 15:00 19:00 19:46 20:00 Temp 98.4 97.9 98.4 97.9 Pulse 59 56 Resp 16 18 16 B/P (MAP) 134/59 (84) 125/53 (77) Pulse Ox 98 99 O2 Delivery Room Air Room Air Room Air Room Air 07/30/17 07/31/17 07/31/17 07/31/17 23:05 00:01 00:31 03:05 Temp 97.8 98.5 97.8 98.5 Pulse 53 52 Resp 18 16 16 18 B/P (MAP) 113/49 (70) 120/55 (76) Pulse Ox 100 100 O2 Delivery Room Air Room Air Room Air Room Air 07/31/17 07/31/17 07/31/17 06:55 08:03 08:05 Temp 97.9 97.9 Pulse 52 52 Resp 18 B/P (MAP) 124/66 (85) 124/66 Pulse Ox 98 O2 Delivery Room Air Room Air AP SAM MD Jul 31, 2017 09:40
[2017-07-31 10:22] LABS: ALBUMIN 3.1 g/dL (3.4-5.0); ALBUMIN/GLOBULIN RATIO 1.1 (1.0-1.7); CALCIUM 8.4 mg/dL (8.5-10.1); CREATININE 0.6 mg/dL (0.6-1.0); GFR 102.3; POTASSIUM 3.3 mmol/L (3.5-5.1); TOTAL BILIRUBIN 0.2 mg/dL (0.2-1.0); TOTAL PROTEIN 5.8 g/dL (6.4-8.2)
[2017-07-31 10:29] LABS: BASO # 0.1 x10^3/uL (0.0-0.2); BASO % 1 % (0-3); EOS % 2 % (0-3); HEMATOCRIT 32.8 % (36.0-47.0); LYMPH # 2.5 x10^3/uL (1.0-4.8); LYMPH % 11 % (24-48); MEAN CORPUSCULAR HEMOGLOBIN 32 pg (25-35); MEAN CORPUSCULAR HGB CONC 34 g/dL (31-37); MEAN CORPUSCULAR VOLUME 95 fL (79-100); MONO % 6 % (0-9); NEUT % 81 % (31-73); PLATELET COUNT 158 x10^3/uL (140-400); RED BLOOD COUNT 3.44 x10^6/uL (3.50-5.40); RED CELL DISTRIBUTION WIDTH 18.7 % (11.5-14.5); WHITE BLOOD COUNT 22.6 x10^3/uL (4.0-11.0)
[2017-07-31 11:07] VITALS: BP 117/58
[2017-07-31 12:28] LABS: % EOS 2 % (0-5)
[2017-07-31 12:29] LABS: ANISOCYTOSIS SLIGHT; PLT ESTIMATE ADEQUATE (ADEQUATE)
[2017-07-31] MEDS ORDERED: POTA20TA4 PO (12:56)
[2017-07-31] MEDS ORDERED: HEPARIN PF 500 UNIT/5 ML DISP.SYRIN. IV ONE (13:00)
--- NOTE | 2017-08-02 15:07 | DS ---
DATE OF DISCHARGE: 07/31/2017 CHIEF COMPLAINT: Nausea, vomiting, diarrhea and leukocytosis. HOSPITAL COURSE: The patient is a 61-year-old woman with metastatic colon cancer, currently on treatment, who presented to the Emergency Room with above complaints. She had received her last chemotherapy last week, followed by Jeanettelasta. She was found with severe hypokalemia, hypomagnesemia as well as massive leukocytosis over 100,000 and was admitted for further monitoring. She responded well to IV fluids and electrolyte replacement. Leukocytosis improved without any further intervention and was ultimately attributed to her shot of Neulasta rather than a history of AML. She was discharged with fairly stable labs on 07/31. DISCHARGE DIAGNOSES: Nausea, vomiting, diarrhea secondary to 5-FU chemotherapy, leukocytosis secondary to Neulasta. PHYSICAL EXAMINATION: VITAL SIGNS: Blood pressure of 115/58, heart rate of 56, respiratory rate at 16. She is afebrile. GENERAL: She is alert and oriented, no acute distress. LUNGS: Clear. HEART: Regular rate and rhythm. ABDOMEN: Has positive bowel sounds, soft with minimal tenderness throughout. EXTREMITIES: Show no edema. DISCHARGE DATE: 07/31/2017 DISCHARGE DISPOSITION: Home. DISCHARGE CONDITION: Improved. DISCHARGE MEDICATIONS: Please refer to MAR. DISCHARGE INSTRUCTIONS: The patient will follow up with PCP and oncologist as previously arranged. JEANNA ALBERT MD DR: UR/nts JOB#: [id number] / [id number] ZEHRA Oropeza
== END 2017-07-31 13:20 | disposition home or self-care (01) | DRG 375 ==
LOC: ER 16:17 → 6 SOUTH 19:10
PROVIDERS: ADMIT Internal Medicine; ATTEND Internal Medicine
DX: C78.6 Secondary malignant neoplasm of retroperitoneum and peritoneum (principal); C18.9 Malignant neoplasm of colon, unspecified; E86.0 Dehydration; E83.42 Hypomagnesemia; I10 Essential (primary) hypertension; E89.0 Postprocedural hypothyroidism; E87.6 Hypokalemia; T45.1X5A Adverse effect of antineoplastic and immunosuppressive drugs, initial encounter; T45.8X5A Adverse effect of other primarily systemic and hematological agents, initial encounter; Z80.51 Family history of malignant neoplasm of kidney; Z80.6 Family history of leukemia; Z85.038 Personal history of other malignant neoplasm of large intestine; Z85.6 Personal history of leukemia; Z87.891 Personal history of nicotine dependence; Z90.49 Acquired absence of other specified parts of digestive tract; Z90.710 Acquired absence of both cervix and uterus; Z93.2 Ileostomy status; Z88.2 Allergy status to sulfonamides; Z88.8 Allergy status to other drugs, medicaments and biological substances; Z90.89 Acquired absence of other organs
CPT/HCPCS: 36415; 71010; 80053; 81001; 83605; 83735; 85007; 85025; 87040; 87086; 93005; 96361; 96374; 96375; 96376; J1650; J2270; J2405; J3010; J3480; J7030; J7060; Q0162; 99285-25

== ENCOUNTER → 2017-10-07 | Outpatient (CLI) | payer OTHER ==
[~2017-10-07] MED LIST changes: +0.9 % SOD CHL for STERILE FIELD 10 ML DISP.SYRIN. ONE; +CONTRAST GIVEN MC PRN; +HEPARIN PF 500 UNIT/5 ML DISP.SYRIN. IV ONE; +IOHEXOL 240 MG/ML 50ML VIAL. PO ONE; +IOHEXOL 300 MG/ML 100ML VIAL. IV ONE; +POTA20TA4 PO
--- NOTE | 2017-10-07 11:46 | RAD ---
CT scan of the chest, abdomen and pelvis with contrast 10/07/2017 Clinical history: Colon cancer. Technique: After the oral and intravenous administration of contrast, contiguous, 5 mm axial sections were obtained through the chest abdomen and pelvis. 75 cc of Omnipaque 300 were administered intravenously during this examination. One or more of the following individualized dose reduction techniques were utilized for this study: 1. Automated exposure control. 2. Adjustment of the mA and/or kV according to patient size. 3. Use of iterative reconstruction technique. Findings: Comparison study is dated 07/09/2017. A 3.3 cm rounded low-attenuation is seen projecting posteriorly from the left lobe of thyroid gland. This may represent a colloid cyst. This is unchanged. A right internal jugular Gsceiy-b-Gkfv type catheter is unchanged position. Moderate atherosclerotic plaque formation is seen involving the thoracic aorta and its branches. The thoracic aorta is tortuous but tapers normally. No hilar, mediastinal or axillary lymphadenopathy is seen. The heart is normal in size. A 2 mm nodular opacity is seen along the right lower lobe, unchanged. Linear bands of probable scarring is seen involving the lingula, unchanged. A 1 cm bulla is unchanged in position within the left lower lobe. Patchy right middle lobe atelectasis and or infiltrate is noted. No new pulmonary nodule or mass is seen. No pleural effusion or pneumothorax is noted. The liver parenchyma has a decreased attenuation consistent with mild fatty infiltration. No focal abnormality of the liver is seen. The spleen, pancreas is adrenal glands are within normal limits. Areas of probable scarring are seen involving both kidneys. Moderate atherosclerotic calcification of the abdominal aorta and its branches is noted. The abdominal aorta tapers normally. Surgical clips are seen within the gallbladder fossa consistent with cholecystectomy. No free fluid or free air is seen within the abdomen. There is no evidence of bowel obstruction. A 1.5 cm soft tissue mass is seen within the fat immediately posterior to the left lobe liver. This is increased in size since the previous examination where measured 1.1 cm in size. This may represent a mesenteric metastasis. No retroperitoneal lymphadenopathy is seen. Images through the pelvis demonstrate the urinary bladder distended with urine. No free fluid is seen. No pelvic or inguinal lymphadenopathy is noted. The osseous structures are unchanged. Impression: 1. No CT evidence of metastatic disease involving the chest. 2. Interval increase in size of the 1.5 cm soft tissue mass within the fat inferior to the left lobe of the liver. This may represent a mesenteric metastasis.
--- NOTE | 2017-10-07 16:56 | RAD ---
Nuclear medicine bone scan Indication: Staging colon cancer Technique: Anterior and posterior planar images of the whole body obtained after infusion of 25.4 mCi of technetium 99m MDP. Comparison: None Findings: No focal abnormal uptake of radiopharmaceutical noted. Symmetric bilateral uptake of radiopharmaceutical in the shoulders, knees, ankles and SI joints likely secondary to degenerative process. Impression: No scintigraphic evidence of blastic osseous metastasis.
== END | disposition home or self-care (01) ==
LOC: NM 07:46
PROVIDERS: ATTEND Internal Medicine Hematology & Oncology
DX: C18.4 Malignant neoplasm of transverse colon (principal); I70.0 Atherosclerosis of aorta
CPT/HCPCS: 71260; 74177; 78306; 96374; A9503; Q9966; Q9967

== ENCOUNTER 2017-11-20 07:43 | Inpatient (IN) | payer OTHER ==
[2017-11-20 08:39] LABS: ADD MAN DIFF? NO
[2017-11-20 08:44] LABS: BASO # 0.1 x10^3/uL (0.0-0.2); BASO % 1 % (0-3); EOS # 0.4 x10^3/uL (0.0-0.7); EOS % 5 % (0-3); HEMATOCRIT 36.2 % (36.0-47.0); HEMOGLOBIN 12.4 g/dL (12.0-15.5); LYMPH # 2.8 x10^3/uL (1.0-4.8); LYMPH % 31 % (24-48); MEAN CORPUSCULAR HEMOGLOBIN 36 pg (25-35); MEAN CORPUSCULAR HGB CONC 34 g/dL (31-37); MEAN CORPUSCULAR VOLUME 106 fL (79-100); MONO # 0.8 x10^3/uL (0.0-1.1); MONO % 8 % (0-9); NEUT # 4.9 x10^3uL (1.8-7.7); NEUT % 55 % (31-73); PLATELET COUNT 196 x10^3/uL (140-400); RED BLOOD COUNT 3.43 x10^6/uL (3.50-5.40); RED CELL DISTRIBUTION WIDTH 16.3 % (11.5-14.5)
[2017-11-20 08:54] LABS: ANION GAP 8 (6-14); BLOOD UREA NITROGEN 15 mg/dL (7-20); BUN/CREATININE RATIO 25 (6-20); CALCIUM 8.9 mg/dL (8.5-10.1); CARBON DIOXIDE 29 mmol/L (21-32); CHLORIDE 103 mmol/L (98-107); CREATININE 0.6 mg/dL (0.6-1.0); GFR 102.3; GLUCOSE 96 mg/dL (70-99); SODIUM 140 mmol/L (136-145)
[2017-11-20 09:00] LABS: ALBUMIN/GLOBULIN RATIO 0.9 (1.0-1.7); ALK PHOS 71 U/L (46-116); ALT (SGPT) 24 U/L (14-59); AST (SGOT) 16 U/L (15-37); TOTAL BILIRUBIN 0.4 mg/dL (0.2-1.0); TOTAL PROTEIN 6.4 g/dL (6.4-8.2)
[2017-11-20] MEDS ORDERED: HEPARIN for IV BOLUS 10,000 UNIT/10 ML VIAL. IV ×4 (09:15)
[2017-11-20] MEDS ORDERED: ONDANSETRON PF 4 MG/2 ML VIAL. IV ×2 (09:30)
[2017-11-20 09:33] LABS: PARTIAL THROMBOPLASTIN TIME 27 SEC (24-38)
[2017-11-20 09:33] LABS: PROTHROMBIN TIME PATIENT 13.1 SEC (11.7-14.0)
[2017-11-20] MEDS: HEPARIN for IV BOLUS 10,000 UNIT/10 ML VIAL. IV ×2 (10:00)
[2017-11-20] MEDS: HEPARIN 25,000UTS/500ML PREMIX 500 ML IV ×6 (10:01→17:51)
[2017-11-20] MEDS: MORPHINE SULFATE 2 MG/ML DISP.SYRIN. IV ×2 (12:25)
[2017-11-20] MEDS ORDERED: ACETAMINOPHEN 325 MG TABLET. PO ×2 (15:30)
[2017-11-20] MEDS: ANTI-COAG MONITOR BY PHARMACY. MC ×2 (15:33)
[2017-11-20] MEDS: hydroCHLOROthiazide 25 MG TABLET PO ×2 (16:23)
[2017-11-20] MEDS: LISINOPRIL 20 MG TABLET PO ×2 (16:24)
[2017-11-20] MEDS: oxyCODONE/APAP 5/325 1 TAB TABLET PO ×4 (16:24→22:54)
[2017-11-20 17:08] LABS: UNFRACTIONATED HEPARIN TESTING 0.94 IU/mL (0.30-0.70)
[2017-11-20] MEDS: ALPRAZolam 0.5 MG TABLET PO ×2 (17:53)
[2017-11-20] MEDS: ZOLPIDEM 5 MG TABLET. PO ×2 (21:17)
[2017-11-20 22:03] LABS: UNFRACTIONATED HEPARIN TESTING 0.79 IU/mL (0.30-0.70)
[2017-11-21 08:21] LABS: UNFRACTIONATED HEPARIN TESTING 0.52 IU/mL (0.30-0.70)
[2017-11-21] MEDS: hydroCHLOROthiazide 25 MG TABLET PO ×2 (09:29)
[2017-11-21] MEDS: LEVOTHYROXINE 50 MCG TABLET PO ×2 (09:29)
[2017-11-21] MEDS: LISINOPRIL 20 MG TABLET PO ×2 (09:29)
[2017-11-21] MEDS: RIVAROXABAN 15 MG TABLET. PO ×4 (09:29→17:46)
[2017-11-21] MEDS: oxyCODONE/APAP 5/325 1 TAB TABLET PO ×2 (09:34)
[2017-11-21] MEDS: GABAPENTIN 300 MG CAPSULE. PO ×2 (21:10)
[2017-11-21] MEDS: ZOLPIDEM 5 MG TABLET. PO ×2 (21:10)
[2017-11-21] MEDS: ALPRAZolam 0.5 MG TABLET PO ×2 (21:13)
[2017-11-22] MEDS: hydroCHLOROthiazide 25 MG TABLET PO ×2 (08:37)
[2017-11-22] MEDS: LEVOTHYROXINE 50 MCG TABLET PO ×2 (08:38)
[2017-11-22] MEDS: LISINOPRIL 20 MG TABLET PO ×2 (08:38)
[2017-11-22] MEDS: RIVAROXABAN 15 MG TABLET. PO ×2 (08:38)
[2017-11-22] MEDS ORDERED: HEPARIN PF 500 UNIT/5 ML DISP.SYRIN. IV ×2 (15:45)
== END 2017-11-22 16:29 | disposition home or self-care (01) | DRG 300 ==
LOC: ER 07:43 → 6 SOUTH 09:20
DX: I82.412 Acute embolism and thrombosis of left femoral vein (principal); C18.9 Malignant neoplasm of colon, unspecified; C78.6 Secondary malignant neoplasm of retroperitoneum and peritoneum; I82.432 Acute embolism and thrombosis of left popliteal vein; D63.0 Anemia in neoplastic disease; E89.0 Postprocedural hypothyroidism; I82.449 Acute embolism and thrombosis of unspecified tibial vein; I82.442 Acute embolism and thrombosis of left tibial vein; I10 Essential (primary) hypertension; J44.9 Chronic obstructive pulmonary disease, unspecified; Z80.51 Family history of malignant neoplasm of kidney; Z80.6 Family history of leukemia; Z85.038 Personal history of other malignant neoplasm of large intestine; Z85.6 Personal history of leukemia; Z86.718 Personal history of other venous thrombosis and embolism; Z87.891 Personal history of nicotine dependence; Z90.49 Acquired absence of other specified parts of digestive tract; Z90.710 Acquired absence of both cervix and uterus; Z88.8 Allergy status to other drugs, medicaments and biological substances; Z92.21 Personal history of antineoplastic chemotherapy
CPT/HCPCS: 36415; 80053; 85025; 85520; 85610; 85730; 93971; 96374; 99285; 99285-25; J1644; J2270

== ENCOUNTER → 2017-12-30 | Outpatient (CLI) | payer OTHER ==
[~2017-12-30] MED LIST changes: -0.9 % SOD CHL for STERILE FIELD 10 ML DISP.SYRIN. ONE; -ALPR0.5T6 PO; -AMOX500C PO; +CONTRAST GIVEN MC; -CONTRAST GIVEN MC PRN; -DOCU100C28 PO; -HEPARIN PF 500 UNIT/5 ML DISP.SYRIN. IV ONE; -IOHEXOL 240 MG/ML 50ML VIAL. PO ONE; -IOHEXOL 300 MG/ML 100ML VIAL. IV ONE; -LEVO500T59 PO; -LEVO50TA5 PO; -LISI1TAB7 PO; -ONDA4TAB10 SL; -OXYC-323 PO; -OXYC1TAB8 PO; -PANT40TA3 PO; -PANT40TA5 PO; -POLY17PO29 PO; -POTA20TA4 PO; -PROC10TA57 PO; -Sertraline Hcl PO; -ZOLP5TAB PO; -[UNRECOGNIZED DRUG - CODE] IV
[2017-12-30] MEDS: IOHEXOL 300 MG/ML 100ML VIAL. IV (09:55)
[2017-12-30] MEDS: IOHEXOL 240 MG/ML 50ML VIAL. PO (09:56)
== END | disposition home or self-care (01) ==
LOC: CT 08:32
DX: C18.4 Malignant neoplasm of transverse colon (principal); J43.9 Emphysema, unspecified; M41.84 Other forms of scoliosis, thoracic region; I70.0 Atherosclerosis of aorta
CPT/HCPCS: 71260; 74177; Q9966; Q9967

== ENCOUNTER → 2018-03-24 | Outpatient (CLI) | payer OTHER | END | disposition home or self-care (01) | LOC: US 15:23 | DX: E04.1 Nontoxic single thyroid nodule (principal) | CPT/HCPCS: 76536 ==

== ENCOUNTER → 2018-04-10 | Outpatient (CLI) | payer OTHER ==
[~2018-04-10] MED LIST changes: -CONTRAST GIVEN MC; +CONTRAST GIVEN. MC; +IOHEXOL 240 MG/ML 50ML VIAL. PO
[2018-04-10] MEDS: IOHEXOL 300 MG/ML 100ML VIAL. IV (09:21)
[2018-04-10] MEDS: HEPARIN PF 500 UNIT/5 ML DISP.SYRIN. IV (09:21)
== END | disposition home or self-care (01) ==
LOC: CT 07:58
DX: C18.4 Malignant neoplasm of transverse colon (principal); I12.9 Hypertensive chronic kidney disease with stage 1 through stage 4 chronic kidney disease, or unspecified chronic kidney disease; N18.4 Chronic kidney disease, stage 4 (severe)
CPT/HCPCS: 71260; 74177; Q9966; Q9967

== ENCOUNTER → 2018-06-11 | Outpatient (CLI) | payer OTHER ==
[2017-11-22 15:00] VITALS: BP 137/67
[~2018-06-11] MED LIST changes: +ALPR0.5T6 PO; +AMOX500C PO; -CONTRAST GIVEN. MC; +CONTRAST GIVEN. MC PRN; +DOCU100C28 PO; +HEPARIN PF 500 UNIT/5 ML DISP.SYRIN. IV ONE; -IOHEXOL 240 MG/ML 50ML VIAL. PO; +IOHEXOL 240 MG/ML 50ML VIAL. PO ONE; +IOHEXOL 300 MG/ML 100ML VIAL. IV ONE; +LEVO500T59 PO; +LEVO50TA5 PO; +LISI1TAB7 PO; +ONDA4TAB10 SL; +OXYC-323 PO; +OXYC1TAB8 PO; +PANT40TA3 PO; +PANT40TA5 PO; +POLY17PO29 PO; +POTA20TA4 PO; +PROC10TA57 PO; +RIVA15TA PO; +Sertraline Hcl PO; +ZOLP5TAB PO; +[UNRECOGNIZED DRUG - CODE] IV
--- NOTE | 2018-06-11 11:29 | RAD ---
EXAM: CT Chest, Abdomen and Pelvis with IV contrast CLINICAL HISTORY: H/O COLON CA INJ 75ML OMNI 300 PREV SENT COMPARISON: 04/10/2018, 12/30/2017 TECHNIQUE: Helical CT of the chest, abdomen and pelvis was performed following the administration of intravenous contrast. Oral contrast was administered. Axial, coronal and sagittal reformatted images were generated. ---PQRS compliance statement - One or more of the following individualized dose reduction techniques were utilized for this study: 1. Automated exposure control 2. Adjustment of the mA and/or kV according to patient size 3. Use of iterative reconstruction technique--- FINDINGS: Chest: The heart is not enlarged. Trace pericardial fluid is likely physiologic. Coronary artery calcifications are seen. No mediastinal or hilar lymphadenopathy. No axillary lymphadenopathy. A left thyroid cystic structure is partially profiled, grossly unchanged. No pleural effusion or pneumothorax. Emphysematous changes are seen. Minimal patchy opacities in the peripheral lingula, likely atelectasis/scarring. No suspicious lung nodule or mass is identified. Abdomen and Pelvis: Focal density is seen at the level of the falciform ligament likely focal fatty infiltration. Otherwise no focal liver lesion is seen. There has been a cholecystectomy. No intra or extrahepatic ductal dilatation is seen. Mild atrophy of the pancreas. Spleen is unremarkable. Adrenal glands are normal. Symmetric nephrograms. Left interpolar renal cortical thinning is seen possibly from prior scarring. No abdominal or pelvic lymphadenopathy. Postsurgical changes from colonic resection and associated anastomosis are seen. Previously seen soft tissue nodularity adjacent to the right hepatic lobe now measures 2 x 1.2 cm, previously 1.9 x 1.8 cm when measured in a similar fashion. Nodular mesenteric infiltration/densities are in general grossly stable in size and shape, most prominent in the right lower quadrant and lower abdomen, possibly conglomerate of lymph nodes, mesenteric edema or mesenteric caking. Dense atherosclerotic calcifications of the aorta and main branches is seen. Small fat-containing periumbilical hernia is seen. Thickening of the right rectus abdominis muscle is unchanged. Bones: Multilevel degenerative changes of the spine are seen including multilevel Schmorl's nodes. No suspicious osseous lesion is identified. IMPRESSION: 1. Nodularity adjacent to the posterior left hepatic lobe is slightly smaller or stable accounting for differences in positioning/technique. 2. Low-density mesenteric nodularity is essentially unchanged. This is nonspecific but may represent mesenteric edema, adenopathy or mesenteric caking/metastatic disease. 3. Right rectus abdominous nodularity is unchanged. Electronically signed by: Carlos Whitfield MD (06/11/2018 11:26 AM) [id number]
== END | disposition home or self-care (01) ==
LOC: CT 07:51
PROVIDERS: ATTEND Internal Medicine Hematology & Oncology
DX: K42.9 Umbilical hernia without obstruction or gangrene (principal); K86.89 Other specified diseases of pancreas; I70.0 Atherosclerosis of aorta; I25.10 Atherosclerotic heart disease of native coronary artery without angina pectoris; M47.894 Other spondylosis, thoracic region; M51.44 Schmorl's nodes, thoracic region; I13.10 Hypertensive heart and chronic kidney disease without heart failure, with stage 1 through stage 4 chronic kidney disease, or unspecified chronic kidney disease; N18.4 Chronic kidney disease, stage 4 (severe); E03.9 Hypothyroidism, unspecified; E83.42 Hypomagnesemia; I48.0 Paroxysmal atrial fibrillation; J43.9 Emphysema, unspecified; K21.9 Gastro-esophageal reflux disease without esophagitis; Z87.440 Personal history of urinary (tract) infections; Z86.718 Personal history of other venous thrombosis and embolism; Z87.891 Personal history of nicotine dependence; Z85.6 Personal history of leukemia; Z90.49 Acquired absence of other specified parts of digestive tract; Z90.710 Acquired absence of both cervix and uterus; Z86.2 Personal history of diseases of the blood and blood-forming organs and certain disorders involving the immune mechanism; Z85.038 Personal history of other malignant neoplasm of large intestine; Z80.51 Family history of malignant neoplasm of kidney; Z80.6 Family history of leukemia; Z83.3 Family history of diabetes mellitus; Z82.5 Family history of asthma and other chronic lower respiratory diseases
CPT/HCPCS: 71260; 74177; Q9966; Q9967

== ENCOUNTER → 2018-08-18 | Outpatient (CLI) | payer OTHER ==
[2017-11-22 15:00] VITALS: BP 137/67
[~2018-08-18] MED LIST changes: -CONTRAST GIVEN. MC PRN; -HEPARIN PF 500 UNIT/5 ML DISP.SYRIN. IV ONE
--- NOTE | 2018-08-18 15:33 | RAD ---
PQRS Compliance statement: One or more of the following individualized dose reduction techniques were utilized for this examination: 1. Automated exposure control. 2. Adjustment of the mA and/or kV according to patient size. 3. Use of iterative reconstruction technique. Indication:MALIGNANT NEOPLASM OF TRANSVERSE COLON. Surveillance scan. TECHNIQUE: CT chest, abdomen and pelviswith IV contrast with multiplanar reformats. COMPARISON: 06/11/2018 FINDINGS: CT chest: Stable 3.4 x 3.1 cm simple cyst in the left thyroid lobe. Right chest wall Chemo-Port with its tip in the SVC. Heart is normal in size. No pericardial or pleural effusion. Coronary artery calcifications. Moderate diffuse atherosclerotic disease seen of the thoracic aorta. No enlarged axillary, mediastinal or hilar adenopathy. Central airways are patent. Mild emphysema. Stable 2 mm nodules/nodular opacity in the left upper lobe (series 2 image 18). Stable 2 mm nodular opacity/nodule in the posterior right lower lobe (series 2 image 42). No suspicious bony lesion in the chest. CT abdomen pelvis: Most likely a small area of focal fatty infiltration along the ligamentum falciform recess in segment 3 of the liver. Otherwise, liver, spleen, pancreas, adrenals and left kidney within normal limits. Punctate nonobstructing right renal stone. No enlarged retroperitoneal or pelvic adenopathy. No free pelvic fluid or ascites. Stable peritoneal nodularity is seen inferior to the liver and spleen. Nodular soft tissue is seen in the mesentery most likely small mesenteric lymph nodes. Moderate to severe diffuse atherosclerotic calcification seen of the abdominal aorta and bilateral iliac arteries. No bowel obstruction. Anastomotic sutures are seen in the left hemiabdomen. Urinary bladder within normal limits. Status post hysterectomy. No suspicious bony lesion. Stable focal thickening of the right rectus abdominis musculature (series 3 image 48). IMPRESSION: 1. Couple of stable 2 mm nodules/nodular opacities as described above, nonspecific. Attention on follow-up. 2. Stable peritoneal nodularity when compared to previous exam from 04/10/2018. 3. Stable focal nodular thickening of the right rectus abdominis musculature. 4. Stable nodularity in the mesentery represent small mesenteric lymph nodes, or mesenteric caking. Attention on follow-up. Electronically signed by: Jose Barnett DO (08/18/2018 3:30 PM) [facility]
== END | disposition home or self-care (01) ==
LOC: CT 13:11
PROVIDERS: ATTEND Internal Medicine Hematology & Oncology
DX: I70.0 Atherosclerosis of aorta (principal); N20.0 Calculus of kidney; E04.1 Nontoxic single thyroid nodule; R59.0 Localized enlarged lymph nodes; Z85.038 Personal history of other malignant neoplasm of large intestine; Z90.710 Acquired absence of both cervix and uterus
CPT/HCPCS: 71260; 74177; Q9966; Q9967

== ENCOUNTER → 2018-09-04 | Outpatient (CLI) | payer OTHER ==
[2017-11-22 15:00] VITALS: BP 137/67
[~2018-09-04] MED LIST changes: -IOHEXOL 240 MG/ML 50ML VIAL. PO ONE; -IOHEXOL 300 MG/ML 100ML VIAL. IV ONE
--- NOTE | 2018-09-04 16:20 | RAD ---
Ultrasound venous Doppler INDICATION:LEFT LEG DVT TECHNIQUE: Grayscale, color Doppler and spectral waveform ultrasound images of the left lower extremities deep veins obtained. COMPARISON: Previous exam from 11/20/2017 FINDINGS: The CFV, great saphenous vein, profunda femoris vein, SFV are compressible and demonstrates evidence of blood flow. The popliteal vein is partially compressible and demonstrates evidence of blood flow suggesting a nonoccluding thrombus. The posterior tibial and peroneal veins are partially compressible without evidence of blood flow. IMPRESSION: 1. Nonoccluding thrombus in the popliteal vein. 2. Occluding thrombus in the posterior tibial vein/peroneal vein. This was also seen on previous exam from 11/1910/27/2017. 3. Rest of the veins are patent. Electronically signed by: Jose Barnett DO (09/04/2018 4:17 PM) [id number]
== END | disposition home or self-care (01) ==
LOC: US 14:45
PROVIDERS: ATTEND Internal Medicine Hematology & Oncology
DX: I82.432 Acute embolism and thrombosis of left popliteal vein (principal); I82.442 Acute embolism and thrombosis of left tibial vein
CPT/HCPCS: 93971

== ENCOUNTER 2018-11-01 10:55 | Emergency (ER) | payer OTHER ==
[~2018-11-01] VITALS: Ht 165.1 cm; Wt 61.2 kg
[~2018-11-01 10:55] MED LIST changes: -OXYC-323 PO; +OXYC1TAB15 PO; -PANT40TA3 PO; -PANT40TA5 PO; +PANT40TA77 PO
[2018-11-01] MEDS ORDERED: ACETAMINOPHEN 500 MG TABLET PO ONE (11:15)
[2018-11-01] MEDS ORDERED: IV NORMAL SALINE 1000ML BAG 1,000 ML IV ONE (11:15)
[2018-11-01] MEDS ORDERED: MORPHINE SULFATE 4 MG/ML VIAL. IV ONE (11:30)
[2018-11-01] MEDS ORDERED: DEXAMETHASONE SOD PHOS 4 MG/ML VIAL IV ONE (11:30)
[2018-11-01 11:42] LABS: BASO % 1 % (0-3); EOS # 0.1 x10^3/uL (0.0-0.7); EOS % 1 % (0-3); HEMATOCRIT 35.6 % (36.0-47.0); HEMOGLOBIN 12.2 g/dL (12.0-15.5); LYMPH # 2.2 x10^3/uL (1.0-4.8); LYMPH % 30 % (24-48); MEAN CORPUSCULAR HEMOGLOBIN 34 pg (25-35); MEAN CORPUSCULAR HGB CONC 34 g/dL (31-37); MEAN CORPUSCULAR VOLUME 98 fL (79-100); MONO # 0.7 x10^3/uL (0.0-1.1); MONO % 9 % (0-9); NEUT # 4.6 x10^3uL (1.8-7.7); NEUT % 60 % (31-73); PLATELET COUNT 218 x10^3/uL (140-400); RED BLOOD COUNT 3.63 x10^6/uL (3.50-5.40); RED CELL DISTRIBUTION WIDTH 17.1 % (11.5-14.5); WHITE BLOOD COUNT 7.6 x10^3/uL (4.0-11.0)
[2018-11-01 11:43] LABS: CREATININE 0.6 mg/dL (0.6-1.0); POTASSIUM 3.6 mmol/L (3.5-5.1)
[2018-11-01 11:48] VITALS: BP 195/90
[2018-11-01 11:49] LABS: ALBUMIN 2.9 g/dL (3.4-5.0); ALBUMIN/GLOBULIN RATIO 0.8 (1.0-1.7); TOTAL BILIRUBIN 0.6 mg/dL (0.2-1.0); TOTAL PROTEIN 6.6 g/dL (6.4-8.2)
[2018-11-01] MEDS ORDERED: LIDO:MAALOX:BENADRYL 1:1:1 180 ML BOTTLE. PO STA (12:13)
--- NOTE | 2018-11-01 12:13 | RAD ---
AP portable chest 11/01/2018. Reason for exam: Cough. Comparison is made with a study of 07/29/2017. A Port-A-Cath remains in place. No new infiltrate or effusion is seen. Heart size and pulmonary vascularity appear normal. IMPRESSION: No acute abnormality. Electronically signed by: Francisco J Ram Jr., MD (11/01/2018 12:09 PM) [facility]
[2018-11-01] MEDS ORDERED: LISINOPRIL 10 MG TABLET PO ONE (12:45)
[2018-11-01] MEDS ORDERED: amLODIPine BESYLATE 5 MG TABLET PO ONE (12:45)
[2018-11-01] MEDS ORDERED: HYDR-3164 PO (12:53)
--- NOTE | 2018-11-01 13:06 | PHYS DOC ---
Past Medical History Past Medical History: Hypertension, Hypothyroid Additional Past Medical Histor: ACUTE MYELOID LEUKEMIA (2008) W/ REMISSION, ST 4 COLON CA (2017) Past Surgical History: Appendectomy, Cholecystectomy, Hysterectomy, Tonsillectomy Additional Past Surgical Histo: PARTIAL THYROIDECTOMY Alcohol Use: None Drug Use: None Adult General Chief Complaint Chief Complaint: FACE PAIN HPI HPI Patient is a 62 year old female who is presenting with chief complaint of upper lip and nose pain runny nose dry cough no fever symptoms worsening she was given antibiotics the other day but she only took one dose she is worried about the diarrhea. No fever no chest ravi no vomiting. Review of Systems Review of Systems Constitutional: Denies fever or chills [] Eyes: Denies change in visual acuity, redness, or eye pain [] HENT: Respiratory: Denies cough or shortness of breath [] Cardiovascular: No additional information not addressed in HPI [] GI: Denies abdominal pain, nausea, vomiting, bloody stools or diarrhea []I Integument: Denies rash or skin lesions [] All other systems were reviewed and found to be within normal limits, except as documented in this note. Current Medications Current Medications Current Medications Medications (Trade) Dose Ordered Sig/Nneka Start Time Stop Time Status Last Admin Dose Admin Acetaminophen (Tylenol) 1,000 mg 1X ONCE 11/01/18 11:15 11/01/18 11:16 DC Amlodipine Besylate (Norvasc) 5 mg 1X ONCE 11/01/18 12:45 11/01/18 12:46 DC Dexamethasone Sodium Phosphate (Decadron) 10 mg 1X ONCE 11/01/18 11:30 11/01/18 11:32 DC 11/01/18 11:40 10 MG Lisinopril (Prinivil) 20 mg 1X ONCE 11/01/18 12:45 11/01/18 12:46 DC Morphine Sulfate (Morphine Sulfate) 4 mg 1X ONCE 11/01/18 11:30 11/01/18 11:32 DC 11/01/18 11:39 4 MG Multi-Ingredient Mouthwash/Gargle (Magic Mouthwash) 10 ml 1X STAT 11/01/18 12:13 11/01/18 12:17 DC 11/01/18 12:29 10 ML Sodium Chloride 1,000 ml @ 1,000 mls/hr 1X ONCE 11/01/18 11:15 11/01/18 12:14 DC 11/01/18 11:40 1,000 MLS/HR Allergies Allergies Allergies Coded Allergies Type Severity Reaction Last Updated Verified sulfamethoxazole Adverse Reaction Intermediate GI UPSET 03/01/17 Yes trimethoprim Adverse Reaction Intermediate GI UPSET 03/01/17 Yes Physical Exam Physical Exam Constitutional: Well developed, well nourished, no acute distress, non-toxic appearance. [] HENT: Normocephalic, atraumatic, bilateral external ears normal, oropharynx moist, no oral exudates, nose normal. [] Intraoral there is a apparent some sort of blood blister just underneath the upper lip on the mucosal surface approximately 1 cm is tender. Otherwise there is no facial or lip swelling no oral exudates or other lesions. Mild cracking of the nasal mucosa no lymphadenopathy was palpated Eyes: PERRLA, EOMI, conjunctiva normal, no discharge. [] Neck: Normal range of motion, no tenderness, supple, no stridor. [] Cardiovascular:Heart rate regular rhythm, no murmur [] Lungs & Thorax: Bilateral breath sounds clear to auscultation [] Abdomen: Bowel sounds normal, soft, no tenderness, no masses, no pulsatile masses. [] Skin: Warm, dry, no erythema, no rash. [] Back: No tenderness, no CVA tenderness. [] Extremities: No tenderness, no cyanosis, no clubbing, ROM intact, no edema. [] Neurologic: Alert and oriented X 3, normal motor function, normal sensory function, no focal deficits noted. [] Psychologic: Affect normal, judgement normal, mood normal. [] Current Patient Data Vital Signs Vital Signs Date Time Temp Pulse Resp B/P (MAP) Pulse Ox O2 Delivery O2 Flow Rate FiO2 11/01/18 11:48 98.1 75 15 195/90 (125) 99 Room Air 98.1 Lab Values Laboratory Tests Test 11/01/18 11:20 White Blood Count 7.6 x10^3/uL (4.0-11.0) Red Blood Count 3.63 x10^6/uL (3.50-5.40) Hemoglobin 12.2 g/dL (12.0-15.5) Hematocrit 35.6 % (36.0-47.0) L Mean Corpuscular Volume 98 fL (79-100) Mean Corpuscular Hemoglobin 34 pg (25-35) Mean Corpuscular Hemoglobin Concent 34 g/dL (31-37) Red Cell Distribution Width 17.1 % (11.5-14.5) H Platelet Count 218 x10^3/uL (140-400) Neutrophils (%) (Auto) 60 % (31-73) Lymphocytes (%) (Auto) 30 % (24-48) Monocytes (%) (Auto) 9 % (0-9) Eosinophils (%) (Auto) 1 % (0-3) Basophils (%) (Auto) 1 % (0-3) Neutrophils # (Auto) 4.6 x10^3uL (1.8-7.7) Lymphocytes # (Auto) 2.2 x10^3/uL (1.0-4.8) Monocytes # (Auto) 0.7 x10^3/uL (0.0-1.1) Eosinophils # (Auto) 0.1 x10^3/uL (0.0-0.7) Basophils # (Auto) 0.0 x10^3/uL (0.0-0.2) Sodium Level 136 mmol/L (136-145) Potassium Level 3.6 mmol/L (3.5-5.1) Chloride Level 99 mmol/L (98-107) Carbon Dioxide Level 28 mmol/L (21-32) Anion Gap 9 (6-14) Blood Urea Nitrogen 11 mg/dL (7-20) Creatinine 0.6 mg/dL (0.6-1.0) Estimated GFR (Cockcroft-Gault) 102.0 BUN/Creatinine Ratio 18 (6-20) Glucose Level 86 mg/dL (70-99) Calcium Level 9.0 mg/dL (8.5-10.1) Total Bilirubin 0.6 mg/dL (0.2-1.0) Aspartate Amino Transferase (AST) 86 U/L (15-37) H Alanine Aminotransferase (ALT) 84 U/L (14-59) H Alkaline Phosphatase 101 U/L (46-116) Total Protein 6.6 g/dL (6.4-8.2) Albumin 2.9 g/dL (3.4-5.0) L Albumin/Globulin Ratio 0.8 (1.0-1.7) L Laboratory Tests 11/01/18 11:20 Laboratory Tests 11/01/18 11:20 EKG EKG [] Radiology/Procedures Radiology/Procedures [] Course & Med Decision Making Course & Med Decision Making Pertinent Labs and Imaging studies reviewed. (See chart for details) []62-year-old female with a history of cancer with last chemotherapy 1 week ago , presenting with upper respiratory type symptoms and found to have a small blood blister on examination. I did make sure that she knows she needs to get follow-up with her oncologist ensure this is not some sort of a lesion that would need to be biopsied. This likely is leading to some of her pain. She was given antibiotic by her oncologist and so I recommended that she continue with that plan in case of a underlying sinusitis given her immunocompromised status. Chest x-ray and lab work were essentially looking pretty good the LFTs were mildly elevated she has no symptoms referrable to that area recommended also follow up with her that finding as well. She is in agreement STREP NEG FLU PENDING LIKELY NEG Dragon Disclaimer Dragon Disclaimer This electronic medical record was generated, in whole or in part, using a voice recognition dictation system. Departure Departure Impression: Primary Impression: Upper respiratory infection Disposition: HOME, SELF-CARE Condition: STABLE Referrals: ZEHRA SMITH (PCP) Patient Instructions: Sinusitis, [id number] Additional Instructions: YOU NEED TO FOLLOW UP WTIH DR SAM FOR 1. THE BLOOD BLISTER LESION ON UPPER LIP 2. THE MILD ELEVATION IN LIVER FUNCTION TESTS Scripts Hydrocodone/Apap 5-325 (NORCO 5-325 TABLET) 1 Each Tablet 1-2 EACH PO PRN Q6HRS PRN for PAIN, #15 as needed for pain Prov: MENDOZA SILVA MD 11/01/18 MENDOZA SILVA MD Nov 01, 2018 13:06
[2018-11-01 13:07] LABS: INFLUENZA A PATIENT NEGATIVE (NEGATIVE); INFLUENZA B PATIENT NEGATIVE (NEGATIVE)
[2019-02-01] MEDS ORDERED: DICY10CA3 PO (10:27)
== END 2018-11-01 13:30 | disposition home or self-care (01) ==
LOC: ER 10:55
DX: J06.9 Acute upper respiratory infection, unspecified (principal); R19.7 Diarrhea, unspecified; I10 Essential (primary) hypertension; E03.9 Hypothyroidism, unspecified; Z88.1 Allergy status to other antibiotic agents; Z88.2 Allergy status to sulfonamides
CPT/HCPCS: 36415; 71045; 80053; 85025; 87070; 87804; 87880; 96361; 96374; 96375; 99284; J1100; J2270; J7030

== ENCOUNTER → 2018-11-06 | Outpatient (CLI) | payer MEDICAID ==
[2018-11-01 11:48] VITALS: BP 195/90
[~2018-11-06] MED LIST changes: +CONTRAST GIVEN. MC PRN; +HYDR-3164 PO; +IOHEXOL 300 MG/ML 100ML VIAL. IV ONE; +PANT40TA3 PO; +PANT40TA5 PO; -PANT40TA77 PO
--- NOTE | 2018-11-06 10:14 | RAD ---
CT study of the maxillofacial bones with contrast Clinical indications: Facial and dental pain. TECHNIQUE: After IV infusion of 75 cc of Omnipaque 300, helical CT scanning of the maxillofacial bones was performed. Multiplanar 2-D reconstructions were generated. PQRS compliance Statement One or more of the following individualized dose reduction techniques were utilized for this study: 1. Automated exposure control 2. Adjustment of the mA and/or kV according to patient size 3. Use of iterative reconstruction technique COMPARISON: Sinus CT study dated January 05, 2011. FINDINGS: There is a small mucous retention cyst of the anterior floor of the right maxillary sinus which measures 17 mm. There is mild mucosal thickening of the posterior wall of the right maxillary sinus measuring 4 mm. Both of these findings have developed since the previous study. Otherwise no significant opacification of the paranasal sinuses is seen. No air-fluid levels are evident. No lytic process is seen. Mastoid sinuses and middle ear cavities are clear. Within the mid to upper neck on the left side deep to the carotid artery and internal jugular vein is a fluid collection measuring 2.8 cm in greatest AP or transverse dimension. It is not completely seen in this study. No peripheral rim enhancement is evident. It displaces a vascular branch anteriorly and laterally. It is located at the level of the upper thyroid cartilage. No adjacent soft tissue inflammatory change is evident. The submandibular and parotid salivary glands are unremarkable. No soft tissue abscess or mass is evident elsewhere. IMPRESSION: No significant sinusitis. No lytic process is evident. There is periapical disease of the second incisor and canine teeth of the upper right maxilla. There is prominent fluid collection within the left side of the mid to upper neck measuring at least 2.8 cm in size. It is not completely seen in this study. No peripheral rim enhancement or adjacent soft tissue edema is seen to indicate an abscess. This could represent a branchial cleft cyst. Electronically signed by: Garret Fofana MD (11/06/2018 10:09 AM) [place] [id number]
== END | disposition home or self-care (01) ==
LOC: CT 12:40
PROVIDERS: ATTEND Internal Medicine Hematology & Oncology
DX: K08.89 Other specified disorders of teeth and supporting structures (principal); J34.89 Other specified disorders of nose and nasal sinuses; Z88.5 Allergy status to narcotic agent; Z88.2 Allergy status to sulfonamides
CPT/HCPCS: 70487; Q9967

== ENCOUNTER → 2018-12-05 | Outpatient (CLI) | payer OTHER ==
[~2018-12-05] MED LIST changes: +APIX5TAB PO; +CEPH500T PO; +DICY10CA3 PO; +IOHEXOL 240 MG/ML 50ML VIAL. PO ONE
--- NOTE | 2018-12-05 13:23 | RAD ---
PQRS Compliance statement: One or more of the following individualized dose reduction techniques were utilized for this examination: 1. Automated exposure control. 2. Adjustment of the mA and/or kV according to patient size. 3. Use of iterative reconstruction technique. Indication:MALIGNANT NEOPLASM TRANSVERSE COLON INJ 75ML OMNI 300 PREV SENT TECHNIQUE: CT chest, abdomen and pelviswith IV contrast with multiplanar reformats. COMPARISON: 08/18/2018 FINDINGS: CT chest: Redemonstrated is a 3.5 x 3.1 cm low attenuating lesion in the left thyroid lobe. Heart is normal in size. No pericardial or pleural effusion. Moderate atherosclerotic disease of the aortic arch and descending thoracic aorta. Coronary artery calcifications. No enlarged axillary, mediastinal or hilar adenopathy. Right chest wall Chemo-Port is seen with its tip in the SVC. Central airways are patent. Lungs are clear. No suspicious bony lesions in the chest. Stable 2 mm nodule in the subpleural left upper lobe (series 2 image 17) and the right lower lobe (series 2 image 40). CT abdomen pelvis: Liver, spleen, pancreas, adrenals within normal limits. Status post cholecystectomy. Nonobstructing punctate stone in the right kidney. No hydronephrosis. Severe atherosclerotic disease seen of the abdominal aorta and its major branches. No enlarged retroperitoneal or pelvic adenopathy. No free pelvic fluid or ascites. No bowel obstruction. Status post partial proximal colectomy. Stable nonenhancing nodularity in the right rectus abdominis musculature. Stable stranding densities in the left upper quadrant omentum and in the mesentery of the central abdomen. Status post hysterectomy. Urinary bladder is within normal limits. No pneumoperitoneum. No suspicious bony lesion. IMPRESSION: 1. Stable left upper quadrant omental and peritoneal nodularity and stable mesenteric stranding densities and nodularity, nonspecific. 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 Attention on follow-up. 2. Stable couple of nonspecific 2 mm nodules. Attention on follow-up. Electronically signed by: Jose Barnett DO (12/05/2018 1:20 PM) [id number]
== END | disposition home or self-care (01) ==
LOC: CT 10:15
PROVIDERS: ATTEND Internal Medicine Hematology & Oncology
DX: C18.4 Malignant neoplasm of transverse colon (principal); I70.0 Atherosclerosis of aorta; Z90.49 Acquired absence of other specified parts of digestive tract; Z90.710 Acquired absence of both cervix and uterus
CPT/HCPCS: 71260; 74177; Q9966; Q9967

== ENCOUNTER 2019-01-26 19:56 | Inpatient (IN) | payer OTHER ==
[~2019-01-26] VITALS: Ht 162.6 cm; Wt 61.2 kg
[~2019-01-26 19:56] MED LIST changes: -APIX5TAB PO; -CEPH500T PO; -CONTRAST GIVEN. MC PRN; -DICY10CA3 PO; -IOHEXOL 240 MG/ML 50ML VIAL. PO ONE; -IOHEXOL 300 MG/ML 100ML VIAL. IV ONE
[2019-01-26] MEDS ORDERED: IV NORMAL SALINE 1000ML BAG 1,000 ML IV ONE (20:45)
[2019-01-26 21:13] LABS: BASO # 0.1 x10^3/uL (0.0-0.2); BASO % 1 % (0-3); EOS # 0.3 x10^3/uL (0.0-0.7); EOS % 4 % (0-3); HEMATOCRIT 34.6 % (36.0-47.0); HEMOGLOBIN 11.6 g/dL (12.0-15.5); LYMPH % 38 % (24-48); MEAN CORPUSCULAR HEMOGLOBIN 32 pg (25-35); MEAN CORPUSCULAR HGB CONC 34 g/dL (31-37); MEAN CORPUSCULAR VOLUME 95 fL (79-100); MONO # 0.8 x10^3/uL (0.0-1.1); MONO % 10 % (0-9); NEUT # 3.7 x10^3uL (1.8-7.7); NEUT % 47 % (31-73); PLATELET COUNT 293 x10^3/uL (140-400); RED BLOOD COUNT 3.63 x10^6/uL (3.50-5.40); RED CELL DISTRIBUTION WIDTH 16.4 % (11.5-14.5); WHITE BLOOD COUNT 7.9 x10^3/uL (4.0-11.0)
[2019-01-26 21:24] LABS: CALCIUM 8.7 mg/dL (8.5-10.1); CREATININE 0.8 mg/dL (0.6-1.0); GFR 72.9; POTASSIUM 3.1 mmol/L (3.5-5.1)
[2019-01-26] MEDS: HYDROmorphone 2 MG/ML VIAL IV/SQ PRN ×2 (21:25→22:20)
[2019-01-26 21:29] LABS: ALBUMIN 2.9 g/dL (3.4-5.0); ALBUMIN/GLOBULIN RATIO 0.7 (1.0-1.7); TOTAL BILIRUBIN 0.3 mg/dL (0.2-1.0); TOTAL PROTEIN 6.8 g/dL (6.4-8.2)
[2019-01-26 21:41] LABS: BILIRUBIN,URINE SMALL (NEG); CLARITY,URINE CLEAR; COLOR,URINE YELLOW; NITRITE,URINE NEGATIVE (NEG); PH,URINE 5.5; PROTEIN,URINE 30 mg/dL (NEG-TRACE); UROBILINOGEN,URINE 0.2 mg/dL (0.2 mg/dL)
--- NOTE | 2019-01-26 21:42 | PHYS DOC ---
Past Medical History Past Medical History: Hypertension, Hypothyroid Additional Past Medical Histor: ACUTE MYELOID LEUKEMIA (2008) W/ REMISSION, ST 4 COLON CA (2017) Past Surgical History: Appendectomy, Cholecystectomy, Hysterectomy, Tonsillectomy Additional Past Surgical Histo: PARTIAL THYROIDECTOMY Alcohol Use: None Drug Use: None Adult General Chief Complaint Chief Complaint: ABDOMINAL PAIN HPI HPI Patient is a 63-year-old female with a history of stage IV colon cancer undergoing chemotherapy by Dr. Corona presents with progressive lower abdominal discomfort. This is been ongoing problem and she was scheduled for a CT scan tomorrow but the pain became so severe in the last several hours that she had to come in for pain management. She denies any fever chills or sweats. She denies any dysuria or gross hematuria. She denies any melena or hematochezia.[] Review of Systems Review of Systems Constitutional: Denies fever or chills [] Eyes: Denies change in visual acuity, redness, or eye pain [] HENT: Denies nasal congestion or sore throat [] Respiratory: Denies cough or shortness of breath [] Cardiovascular: No additional information not addressed in HPI [] GI: Per history of present illness[] : Denies dysuria or hematuria [] Musculoskeletal: Denies back pain or joint pain [] Integument: Denies rash or skin lesions [] Neurologic: Denies headache, focal weakness or sensory changes [] Endocrine: Denies polyuria or polydipsia [] All other systems were reviewed and found to be within normal limits, except as documented in this note. Current Medications Current Medications Current Medications Medications (Trade) Dose Ordered Sig/Nneka Start Time Stop Time Status Last Admin Dose Admin Hydromorphone HCl (Dilaudid) 1 mg PRN Q15MIN PRN 01/26/19 20:45 01/27/19 20:44 01/26/19 22:20 1 MG Info (CONTRAST GIVEN -- Rx MONITORING) 1 each PRN DAILY PRN 01/26/19 22:30 01/28/19 22:29 Iohexol (Omnipaque 300 Mg/ml) 75 ml 1X ONCE 01/26/19 22:15 01/26/19 22:16 DC 01/26/19 22:19 75 ML Sodium Chloride 1,000 ml @ 1,000 mls/hr 1X ONCE 01/26/19 20:45 01/26/19 21:44 DC 01/26/19 21:25 1,000 MLS/HR Allergies Allergies Allergies Coded Allergies Type Severity Reaction Last Updated Verified sulfamethoxazole Adverse Reaction Intermediate GI UPSET 03/01/17 Yes trimethoprim Adverse Reaction Intermediate GI UPSET 03/01/17 Yes Physical Exam Physical Exam Constitutional: Well developed, well nourished, moderate to severe acute distress, non-toxic appearance. [] HENT: Normocephalic, atraumatic, bilateral external ears normal, oropharynx moist, no oral exudates, nose normal. [] Eyes: PERRLA, EOMI, conjunctiva normal, no discharge. [] Neck: Normal range of motion, no tenderness, supple, no stridor. [] Cardiovascular:Heart rate regular rhythm, no murmur [] Lungs & Thorax: Bilateral breath sounds clear to auscultation [] Abdomen: Diffusely tender to palp with voluntary guarding no rebound. [] Skin: Warm, dry, no erythema, no rash. [] Back: No tenderness, no CVA tenderness. [] Extremities: No tenderness, no cyanosis, no clubbing, ROM intact, no edema. [] Neurologic: Alert and oriented X 3, normal motor function, normal sensory function, no focal deficits noted. [] Psychologic: Extremely anxious[] Current Patient Data Vital Signs Vital Signs Date Time Temp Pulse Resp B/P (MAP) Pulse Ox O2 Delivery O2 Flow Rate FiO2 01/26/19 22:20 20 99 Room Air 01/26/19 20:20 99.3 73 144/73 (96) 99.3 Lab Values Laboratory Tests Test 01/26/19 21:10 01/26/19 21:35 White Blood Count 7.9 x10^3/uL (4.0-11.0) Red Blood Count 3.63 x10^6/uL (3.50-5.40) Hemoglobin 11.6 g/dL (12.0-15.5) L Hematocrit 34.6 % (36.0-47.0) L Mean Corpuscular Volume 95 fL (79-100) Mean Corpuscular Hemoglobin 32 pg (25-35) Mean Corpuscular Hemoglobin Concent 34 g/dL (31-37) Red Cell Distribution Width 16.4 % (11.5-14.5) H Platelet Count 293 x10^3/uL (140-400) Neutrophils (%) (Auto) 47 % (31-73) Lymphocytes (%) (Auto) 38 % (24-48) Monocytes (%) (Auto) 10 % (0-9) H Eosinophils (%) (Auto) 4 % (0-3) H Basophils (%) (Auto) 1 % (0-3) Neutrophils # (Auto) 3.7 x10^3uL (1.8-7.7) Lymphocytes # (Auto) 3.0 x10^3/uL (1.0-4.8) Monocytes # (Auto) 0.8 x10^3/uL (0.0-1.1) Eosinophils # (Auto) 0.3 x10^3/uL (0.0-0.7) Basophils # (Auto) 0.1 x10^3/uL (0.0-0.2) Sodium Level 138 mmol/L (136-145) Potassium Level 3.1 mmol/L (3.5-5.1) L Chloride Level 101 mmol/L (98-107) Carbon Dioxide Level 23 mmol/L (21-32) Anion Gap 14 (6-14) Blood Urea Nitrogen 23 mg/dL (7-20) H Creatinine 0.8 mg/dL (0.6-1.0) Estimated GFR (Cockcroft-Gault) 72.9 BUN/Creatinine Ratio 29 (6-20) H Glucose Level 91 mg/dL (70-99) Calcium Level 8.7 mg/dL (8.5-10.1) Total Bilirubin 0.3 mg/dL (0.2-1.0) Aspartate Amino Transferase (AST) 15 U/L (15-37) Alanine Aminotransferase (ALT) 19 U/L (14-59) Alkaline Phosphatase 68 U/L (46-116) Total Protein 6.8 g/dL (6.4-8.2) Albumin 2.9 g/dL (3.4-5.0) L Albumin/Globulin Ratio 0.7 (1.0-1.7) L Lipase 91 U/L (73-393) Urine Collection Type U cath Urine Color Yellow Urine Clarity Clear Urine pH 5.5 Urine Specific Harmans 1.020 Urine Protein 30 mg/dL (NEG-TRACE) Urine Glucose (UA) Negative mg/dL (NEG) Urine Ketones (Stick) Negative mg/dL (NEG) Urine Blood Negative (NEG) Urine Nitrite Negative (NEG) Urine Bilirubin Small (NEG) Urine Urobilinogen Dipstick 0.2 mg/dL (0.2 mg/dL) Urine Leukocyte Esterase Negative (NEG) Urine RBC Occ /HPF (0-2) Urine WBC Occ /HPF (0-4) Urine Squamous Epithelial Cells Occ /LPF Urine Amorphous Sediment Present /HPF Urine Bacteria 0 /HPF (0-FEW) Urine Hyaline Casts Moderate /HPF Urine Mucus Mod /LPF Laboratory Tests 01/26/19 21:10 Laboratory Tests 01/26/19 21:10 EKG EKG [] Radiology/Procedures Radiology/Procedures [] Impressions: REASON: severe pain - hx of colon CA PROCEDURE: CT ABD PELV W/ IV CONTRST ONLY INDICATION: SEVERED ABDOMINAL PAIN COLON CA STAGE IV, APPY, HYSTO, JOCY SX, OMNI 30 75mL COMPARISON: 12/05/2018 TECHNIQUE: Axial CT images obtained through the abdomen and pelvis with contrast. One or more of the following individualized dose reduction techniques were utilized for this examination: 1. Automated exposure control; 2. Adjustment of the mA and/or kV according to patient size; 3. Use of iterative reconstruction technique. FINDINGS: Severe calcific atherosclerosis. There is some free fluid. Postcholecystectomy changes with mild intraductal bile duct prominence which is commonly seen postoperatively. The pancreas enhances. Spleen is unremarkable. There is repeat demonstration of nodularity within the mesentery. No left-sided hydronephrosis. Urinary bladder is partially distended. No right-sided hydronephrosis. 1 mm calcification right kidney. Could be cortical in nature or from nonobstructive stone. There is diffuse dilatation of the bowel most severe in the large bowel. Liquid stool is seen. Degenerative changes throughout the spine with multilevel central canal and neural foraminal stenosis. Scattered sclerotic foci in the osseous structures. IMPRESSION: 1. Dilatation of the bowel is seen throughout the abdomen including of the large bowel. This could be secondary to ileus given that the colon is involved most severely with causes such as Jonathan syndrome also within the differential. A very distal obstruction also cannot be excluded given the dilation of the bowel. There is adjacent fluid and edema. 2. Repeat demonstration of nodularity within the mesentery which can be seen with peritoneal carcinomatosis given the patient's history. There is also some free fluid identified. The degree of nodularity along the mesentery overall appears slightly increased from prior. 3. Severe calcific atherosclerosis. Course & Med Decision Making Course & Med Decision Making Pertinent Labs and Imaging studies reviewed. (See chart for details) [ED course: Evaluation reveals 63-year-old female with colon cancer and abdominal pain. 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 I do not believe she needs an NG tube as she is not vomiting at this time. She has required Dilaudid for pain control. I think it's in her best interest to have her stay in the hospital for conservative treatment including nothing by mouth and IV fluids as well as IV pain medication.] Dragon Disclaimer Dragon Disclaimer This electronic medical record was generated, in whole or in part, using a voice recognition dictation system. Departure Departure Impression: Primary Impression: Abdominal pain Additional Impression: Jonathan's syndrome Disposition: ADMITTED INPATIENT Admitting Physician: Robb Rodriguez Condition: STABLE Referrals: ZEHRA SMITH (PCP) Problem Qualifiers Primary Impression: Abdominal pain Abdominal location: left lower quadrant Qualified Codes: R10.32 - Left lower quadrant pain ARCELIA GALLARDO DO Jan 26, 2019 21:42
[2019-01-26 21:44] LABS: BACTERIA,URINE 0 /HPF (0-FEW); RBC,URINE OCC /HPF (0-2); WBC,URINE OCC /HPF (0-4)
[2019-01-26 21:45] LABS: AMORPHOUS SEDIMENT,UR PRESENT /HPF; HYALINE CASTS, URINE MODERATE /HPF; SQUAMOUS EPITHELIAL CELL,UR OCC /LPF
[2019-01-26] MEDS ORDERED: IOHEXOL 300 MG/ML 50 ML VIAL. IV ONE (22:15)
[2019-01-26] MEDS ORDERED: CONTRAST GIVEN. MC PRN (22:30)
--- NOTE | 2019-01-26 22:41 | RAD ---
INDICATION: SEVERED ABDOMINAL PAIN COLON CA STAGE IV, APPY, HYSTO, JOCY SX, OMNI 30 75mL COMPARISON: 12/05/2018 TECHNIQUE: Axial CT images obtained through the abdomen and pelvis with contrast. One or more of the following individualized dose reduction techniques were utilized for this examination: 1. Automated exposure control; 2. Adjustment of the mA and/or kV according to patient size; 3. Use of iterative reconstruction technique. FINDINGS: Severe calcific atherosclerosis. There is some free fluid. Postcholecystectomy changes with mild intraductal bile duct prominence which is commonly seen postoperatively. The pancreas enhances. Spleen is unremarkable. There is repeat demonstration of nodularity within the mesentery. No left-sided hydronephrosis. Urinary bladder is partially distended. No right-sided hydronephrosis. 1 mm calcification right kidney. Could be cortical in nature or from nonobstructive stone. There is diffuse dilatation of the bowel most severe in the large bowel. Liquid stool is seen. Degenerative changes throughout the spine with multilevel central canal and neural foraminal stenosis. Scattered sclerotic foci in the osseous structures. IMPRESSION: 1. Dilatation of the bowel is seen throughout the abdomen including of the large bowel. This could be secondary to ileus given that the colon is involved most severely with causes such as Josephine syndrome also within the differential. A very distal obstruction also cannot be excluded given the dilation of the bowel. There is adjacent fluid and edema. 2. Repeat demonstration of nodularity within the mesentery which can be seen with peritoneal carcinomatosis given the patient's history. There is also some free fluid identified. The degree of nodularity along the mesentery overall appears slightly increased from prior. 3. Severe calcific atherosclerosis. Electronically signed by: Jai Rhodes MD (01/26/2019 10:38 PM) [facility]
[2019-01-26] MEDS ORDERED: ONDANSETRON PF 4 MG/2 ML VIAL. IV PRN (23:00)
[2019-01-27 00:31] VITALS: BP 117/51
--- NOTE | 2019-01-27 01:20 | NUR ---
The patient, CATALINO COBOS, 63 y/o, F admitted by VANIA HUTSON III, DO, arrived on unit at 0030 via wheelchair. VSS. Pt. was pleasant but complaining of pain 05/30. Pt. was given written information regarding hospital policies, unit procedures and contact persons. Valuables were left with pt. in room at bedside. Pt. refused putting anything with security. Bed low, call light within reach. Will continue to monitor.
[2019-01-27] MEDS: fentaNYL PF VIAL 100 MCG/2 ML VIAL IV PRN ×2 (01:27→05:45)
--- NOTE | 2019-01-27 02:02 | NUR ---
Cdiff sample collected by ER but order was not placed. This nurse put order in.
[2019-01-27] MEDS: IV NORMAL SALINE 1000ML BAG 1,000 ML IV SCH ×2 (02:16→05:44)
[2019-01-27] MEDS: POTASSIUM CHLORIDE 10MEQ 100 ML IV SCH ×4 (02:16→05:44)
[2019-01-27 03:00] VITALS: BP 93/37
--- NOTE | 2019-01-27 03:00 | NUR ---
For Dietary consult-- Pt. states she has lost more than 45 lbs. in last 2 years d/t cancer diagnosis. stated food doesn't seem appealing a lot of the time
[2019-01-27 06:54] LABS: CALCIUM 8.3 mg/dL (8.5-10.1); CREATININE 0.7 mg/dL (0.6-1.0); GFR 85.1; POTASSIUM 5.3 mmol/L (3.5-5.1)
[2019-01-27 07:00] VITALS: BP 108/39
[2019-01-27] MEDS ORDERED: ACETAMINOPHEN 500 MG TABLET PO PRN (08:15)
[2019-01-27] MEDS ORDERED: ONDANSETRON PF 4 MG/2 ML VIAL. IV PRN (08:30)
[2019-01-27] MEDS ORDERED: FAMOTIDINE 20 MG/2 ML VIAL IVP SCH (09:00)
--- NOTE | 2019-01-27 09:01 | PDOC2 ---
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 Continues her chemotherapy. She started having sharp pain to left abdomen 24 hours ago. It worsened overnight and brought her to ER. Currently feeling better. No nausea or emesis. Reports ongoing loose stools, which has been normal for her Past Medical History Cardiovascular: HTN GI: No pertinent hx Heme/Onc: Cancer, Other Psych: Other Rheumatologic: No pertinent hx Renal/: No pertinent hx Endocrine: Hypothyroidism Past Surgical History Past Surgical History: Appendectomy, Cholecystectomy, Colon Resection, Other Family History Family History: Hypothyroidism, Other Social History ALCOHOL: none Drugs: None Lives: with Family Current Problem List Problem List Problems Medical Problems: (1) Abdominal pain Status: Acute (2) Jonathan's syndrome Status: Acute Current Medications Current Medications Current Medications Hydromorphone HCl (Dilaudid) 1 mg PRN Q15MIN PRN IV/SQ PAIN GREATER THAN 3/10 Last administered on 01/26/19at 22:20; Start 01/26/19 at 20:45; Stop 01/27/19 at 20: 44 Sodium Chloride 1,000 ml @ 1,000 mls/hr 1X ONCE IV Last administered on at 21:25; Start 01/26/19 at 20:45; Stop 01/26/19 at 21:44; Status DC Iohexol (Omnipaque 300 Mg/ml) 75 ml 1X ONCE IV Last administered on 01/26/19at 22:19; Start 01/26/19 at 22:15; Stop 01/26/19 at 22:16; Status DC Info (CONTRAST GIVEN -- Rx MONITORING) 1 each PRN DAILY PRN MC SEE COMMENTS; Start 01/26/19 at 22:30; Stop 01/28/19 at 22:29 Ondansetron HCl (Zofran) 4 mg PRN Q8HRS PRN IV NAUSEA/VOMITING Last administered on 01/27/19at 01:27; Start 01/26/19 at 23:00; Stop 01/27/19 at 08:16; Status DC Fentanyl Citrate (Fentanyl 2ml Vial) 50 mcg PRN Q3HRS PRN IV PAIN Last administered on 01/27/19at 05:45; Start 01/26/19 at 23:00; Stop 01/27/19 at 22:59 Sodium Chloride 1,000 ml @ 125 mls/hr Q8H IV Last administered on 01/27/19at 05: 44; Start 01/26/19 at 23:00; Stop 01/27/19 at 22:59 Potassium Chloride/Water 100 ml @ 100 mls/hr Q1H IV Last administered on at 05:44; Start 01/27/19 at 02:00; Stop 01/27/19 at 05:59; Status DC Ondansetron HCl (Zofran) 4 mg PRN Q6HRS PRN IV NAUSEA/VOMITING; Start 01/27/19 at 08:30 Acetaminophen (Tylenol) 500 mg PRN Q6HRS PRN PO MILD PAIN / TEMP; Start at 08:15 Famotidine (Pepcid Vial) 20 mg BID IVP ; Start 01/27/19 at 09:00 Active Scripts Active [place] 5-325 Tablet (Acetaminophen/Hydrocodone Bitart) 1 Each Tablet 1-2 Each PO PRN Q6HRS PRN as needed for pain Xarelto (Rivaroxaban) 15 Mg Tablet 15 Mg PO BIDWMEALS 30 Days 15 mg po bid for 20 days then 20 mg daily Percocet 5-325 Mg Tablet (Oxycodone/Acetaminophen) 1 Each Tablet 1 Tab PO Q4- 6HRS Alprazolam 0.5 Mg Tablet 0.5 Mg PO PRN Q8HRS PRN Reported Lisinopril-Hctz 20-25 Mg Tab (Lisinopril/Hydrochlorothiazide) 1 Each Tablet 1 Tab PO DAILY Ambien (Zolpidem Tartrate) 5 Mg Tablet 1 Tab PO QHS Levothyroxine Sodium 50 Mcg Tablet 1 Tab PO DAILY Allergies Allergies: Coded Allergies: codeine (Verified Allergy, Unknown, 01/27/19) sulfamethoxazole (Verified Adverse Reaction, Intermediate, GI UPSET, ) trimethoprim (Verified Adverse Reaction, Intermediate, GI UPSET, 03/01/17) ROS General: No: Chills, Other (fevers) PSYCHOLOGICAL ROS: No: Anxiety, Depression Eyes: No Blurry vision, No Double vision HEENT: No: Heacaches, Sore Throat Hematological and Lymphatic: No: Bleeding Problems, Blood Clots Respiratory: No: Cough, Shortness of breath Cardiovascular: No Chest Pain, No Palpitations Gastrointestinal: Yes Other (see hpi) Genitourinary: No Dysuria, No Retention Musculoskeletal: No Joint Pain, No Muscle Pain Neurological: No Impaired Coord/balance, No Numbness/Tingling Skin: No Pruritus, No Rash Physical Exam General: Alert, Oriented X3, Cooperative, No acute distress HEENT: PERRLA, Mucous membr. moist/pink Lungs: Clear to auscultation, Normal air movement Heart: Regular rate, Normal S1, Normal S2, No murmurs Abdomen: Soft, Other (mild TTP luq, non distended ) Extremities: No clubbing, No cyanosis Skin: No rashes, No breakdown Neuro: Normal gait, Normal speech Psych/Mental Status: Mental status NL, Mood NL MUSCULOSKELETAL: No deformity, No swelling Vitals VITALS Vital Signs Date Time Temp Pulse Resp B/P (MAP) Pulse Ox O2 Delivery O2 Flow Rate FiO2 01/27/19 08:00 Room Air 01/27/19 07:00 97.9 51 16 108/39 (62) 98 97.9 Labs Labs Laboratory Tests Test 01/26/19 21:10 01/26/19 21:35 01/27/19 05:05 White Blood Count 7.9 x10^3/uL (4.0-11.0) Red Blood Count 3.63 x10^6/uL (3.50-5.40) Hemoglobin 11.6 g/dL (12.0-15.5) Hematocrit 34.6 % (36.0-47.0) Mean Corpuscular Volume 95 fL (79-100) Mean Corpuscular Hemoglobin 32 pg (25-35) Mean Corpuscular Hemoglobin Concent 34 g/dL (31-37) Red Cell Distribution Width 16.4 % (11.5-14.5) Platelet Count 293 x10^3/uL (140-400) Neutrophils (%) (Auto) 47 % (31-73) Lymphocytes (%) (Auto) 38 % (24-48) Monocytes (%) (Auto) 10 % (0-9) Eosinophils (%) (Auto) 4 % (0-3) Basophils (%) (Auto) 1 % (0-3) Neutrophils # (Auto) 3.7 x10^3uL (1.8-7.7) Lymphocytes # (Auto) 3.0 x10^3/uL (1.0-4.8) Monocytes # (Auto) 0.8 x10^3/uL (0.0-1.1) Eosinophils # (Auto) 0.3 x10^3/uL (0.0-0.7) Basophils # (Auto) 0.1 x10^3/uL (0.0-0.2) Sodium Level 138 mmol/L (136-145) 139 mmol/L (136-145) Potassium Level 3.1 mmol/L (3.5-5.1) 5.3 mmol/L (3.5-5.1) Chloride Level 101 mmol/L (98-107) 106 mmol/L (98-107) Carbon Dioxide Level 23 mmol/L (21-32) 25 mmol/L (21-32) Anion Gap 14 (6-14) 8 (6-14) Blood Urea Nitrogen 23 mg/dL (7-20) 22 mg/dL (7-20) Creatinine 0.8 mg/dL (0.6-1.0) 0.7 mg/dL (0.6-1.0) Estimated GFR (Cockcroft-Gault) 72.9 85.1 BUN/Creatinine Ratio 29 (6-20) Glucose Level 91 mg/dL (70-99) 77 mg/dL (70-99) Calcium Level 8.7 mg/dL (8.5-10.1) 8.3 mg/dL (8.5-10.1) Total Bilirubin 0.3 mg/dL (0.2-1.0) Aspartate Amino Transf (AST/SGOT) 15 U/L (15-37) Alanine Aminotransferase (ALT/SGPT) 19 U/L (14-59) Alkaline Phosphatase 68 U/L (46-116) Total Protein 6.8 g/dL (6.4-8.2) Albumin 2.9 g/dL (3.4-5.0) Albumin/Globulin Ratio 0.7 (1.0-1.7) Lipase 91 U/L (73-393) Urine Collection Type U cath Urine Color Yellow Urine Clarity Clear Urine pH 5.5 Urine Specific [place] 1.020 Urine Protein 30 mg/dL (NEG-TRACE) Urine Glucose (UA) Negative mg/dL (NEG) Urine Ketones (Stick) Negative mg/dL (NEG) Urine Blood Negative (NEG) Urine Nitrite Negative (NEG) Urine Bilirubin Small (NEG) Urine Urobilinogen Dipstick 0.2 mg/dL (0.2 mg/dL) Urine Leukocyte Esterase Negative (NEG) Urine RBC Occ /HPF (0-2) Urine WBC Occ /HPF (0-4) Urine Squamous Epithelial Cells Occ /LPF Urine Amorphous Sediment Present /HPF Urine Bacteria 0 /HPF (0-FEW) Urine Hyaline Casts Moderate /HPF Urine Mucus Mod /LPF Laboratory Tests Test 01/26/19 21:10 01/26/19 21:35 01/27/19 05:05 White Blood Count 7.9 x10^3/uL (4.0-11.0) Red Blood Count 3.63 x10^6/uL (3.50-5.40) Hemoglobin 11.6 g/dL (12.0-15.5) Hematocrit 34.6 % (36.0-47.0) Mean Corpuscular Volume 95 fL (79-100) Mean Corpuscular Hemoglobin 32 pg (25-35) Mean Corpuscular Hemoglobin Concent 34 g/dL (31-37) Red Cell Distribution Width 16.4 % (11.5-14.5) Platelet Count 293 x10^3/uL (140-400) Neutrophils (%) (Auto) 47 % (31-73) Lymphocytes (%) (Auto) 38 % (24-48) Monocytes (%) (Auto) 10 % (0-9) Eosinophils (%) (Auto) 4 % (0-3) Basophils (%) (Auto) 1 % (0-3) Neutrophils # (Auto) 3.7 x10^3uL (1.8-7.7) Lymphocytes # (Auto) 3.0 x10^3/uL (1.0-4.8) Monocytes # (Auto) 0.8 x10^3/uL (0.0-1.1) Eosinophils # (Auto) 0.3 x10^3/uL (0.0-0.7) Basophils # (Auto) 0.1 x10^3/uL (0.0-0.2) Sodium Level 138 mmol/L (136-145) 139 mmol/L (136-145) Potassium Level 3.1 mmol/L (3.5-5.1) 5.3 mmol/L (3.5-5.1) Chloride Level 101 mmol/L (98-107) 106 mmol/L (98-107) Carbon Dioxide Level 23 mmol/L (21-32) 25 mmol/L (21-32) Anion Gap 14 (6-14) 8 (6-14) Blood Urea Nitrogen 23 mg/dL (7-20) 22 mg/dL (7-20) Creatinine 0.8 mg/dL (0.6-1.0) 0.7 mg/dL (0.6-1.0) Estimated GFR (Cockcroft-Gault) 72.9 85.1 BUN/Creatinine Ratio 29 (6-20) Glucose Level 91 mg/dL (70-99) 77 mg/dL (70-99) Calcium Level 8.7 mg/dL (8.5-10.1) 8.3 mg/dL (8.5-10.1) Total Bilirubin 0.3 mg/dL (0.2-1.0) Aspartate Amino Transf (AST/SGOT) 15 U/L (15-37) Alanine Aminotransferase (ALT/SGPT) 19 U/L (14-59) Alkaline Phosphatase 68 U/L (46-116) Total Protein 6.8 g/dL (6.4-8.2) Albumin 2.9 g/dL (3.4-5.0) Albumin/Globulin Ratio 0.7 (1.0-1.7) Lipase 91 U/L (73-393) Urine Collection Type U cath Urine Color Yellow Urine Clarity Clear Urine pH 5.5 Urine Specific [place] 1.020 Urine Protein 30 mg/dL (NEG-TRACE) Urine Glucose (UA) Negative mg/dL (NEG) Urine Ketones (Stick) Negative mg/dL (NEG) Urine Blood Negative (NEG) Urine Nitrite Negative (NEG) Urine Bilirubin Small (NEG) Urine Urobilinogen Dipstick 0.2 mg/dL (0.2 mg/dL) Urine Leukocyte Esterase Negative (NEG) Urine RBC Occ /HPF (0-2) Urine WBC Occ /HPF (0-4) Urine Squamous Epithelial Cells Occ /LPF Urine Amorphous Sediment Present /HPF Urine Bacteria 0 /HPF (0-FEW) Urine Hyaline Casts Moderate /HPF Urine Mucus Mod /LPF Assessment/Plan Assessment/Plan colon cancer ileus appears improved since admission supportive measures with hydration, pain meds will review with BECKIE Nelson MD 01/27/19 0931: CONSULT Assessment/Plan Assessment/Plan Pt seen and examined. Agree with Ms. Cannon's note Pt admitted with bloating, improved today feels well otherwise abd soft, ND, NTTP will start clears, cont supportive care consider GI evaluation if continues to have problems Thanks for consult! JESSIKA CANNON APRN Jan 27, 2019 09:01 BECKIE BALDERAS MD Jan 27, 2019 09:31
[2019-01-27] MEDS ORDERED: APIX5TAB PO (10:06)
[2019-01-27] MEDS ORDERED: HYDROcodone/APAP 5/325MG 1 TAB TABLET PO PRN (10:15)
[2019-01-27] MEDS ORDERED: ALPRAZolam 0.5 MG TABLET PO PRN (10:15)
--- NOTE | 2019-01-27 10:18 | PDOC1 ---
History and Physical Date of Admission Date of Admission DATE: 01/27/19 TIME: 10:15 Identification/Chief Complaint Chief Complaint Abdominal pain Source Source: Caregiver, Chart review, Patient History of Present Illness History of Present Illness 63-year-old female with stage IV colon cancer undergoing chemotherapy with Dr. Corona, well-known to Dr. Balderas when she was admitted here months or years ago during that time she was diagnosed with new colon cancer. In any case she had a CAT scan of the abdomen scheduled but was in severe abdominal pain hence went to the ER and subsequently admitted. CAT scan shows ileus, labs are unremarkable. I see her trying to have a diet, liquid diet for now and much better pain. Had a bowel movement at the ER. Feels comfortable to go home and address her diet as tolerated at home I did consult [facility], there known to her case-they're agreeable with plan. But also mention GI consult if symptoms worsen but so far she looks much better Past Medical History Cardiovascular: HTN GI: No pertinent hx Heme/Onc: Cancer, Other Psych: Other Rheumatologic: No pertinent hx Renal/: No pertinent hx Endocrine: Hypothyroidism Past Surgical History Past Surgical History: Appendectomy, Cholecystectomy, Colon Resection, Other Family History Family History: Hypothyroidism, Other Social History Smoke: No ALCOHOL: none Drugs: None Current Problem List Problem List Problems Medical Problems: (1) Abdominal pain Status: Acute (2) Lewis's syndrome Status: Acute Current Medications Current Medications Current Medications Hydromorphone HCl (Dilaudid) 1 mg PRN Q15MIN PRN IV/SQ PAIN GREATER THAN 3/10 Last administered on 01/26/19at 22:20; Start 01/26/19 at 20:45; Stop 01/27/19 at 20: 44 Sodium Chloride 1,000 ml @ 1,000 mls/hr 1X ONCE IV Last administered on at 21:25; Start 01/26/19 at 20:45; Stop 01/26/19 at 21:44; Status DC Iohexol (Omnipaque 300 Mg/ml) 75 ml 1X ONCE IV Last administered on 01/26/19at 22:19; Start 01/26/19 at 22:15; Stop 01/26/19 at 22:16; Status DC Info (CONTRAST GIVEN -- Rx MONITORING) 1 each PRN DAILY PRN MC SEE COMMENTS; Start 01/26/19 at 22:30; Stop 01/28/19 at 22:29 Ondansetron HCl (Zofran) 4 mg PRN Q8HRS PRN IV NAUSEA/VOMITING Last administered on 01/27/19at 01:27; Start 01/26/19 at 23:00; Stop 01/27/19 at 08:16; Status DC Fentanyl Citrate (Fentanyl 2ml Vial) 50 mcg PRN Q3HRS PRN IV PAIN Last administered on 01/27/19at 05:45; Start 01/26/19 at 23:00; Stop 01/27/19 at 22:59 Sodium Chloride 1,000 ml @ 125 mls/hr Q8H IV Last administered on 01/27/19at 05: 44; Start 01/26/19 at 23:00; Stop 01/27/19 at 22:59 Potassium Chloride/Water 100 ml @ 100 mls/hr Q1H IV Last administered on at 05:44; Start 01/27/19 at 02:00; Stop 01/27/19 at 05:59; Status DC Ondansetron HCl (Zofran) 4 mg PRN Q6HRS PRN IV NAUSEA/VOMITING; Start 01/27/19 at 08:30 Acetaminophen (Tylenol) 500 mg PRN Q6HRS PRN PO MILD PAIN / TEMP; Start at 08:15 Famotidine (Pepcid Vial) 20 mg BID IVP ; Start 01/27/19 at 09:00 Alprazolam (Xanax) 0.5 mg PRN Q8HRS PRN PO ANXIETY / AGITATION; Start 01/27/19 at 10:15; Status UNV Apixaban (Eliquis) 5 mg BID PO ; Start 01/27/19 at 21:00; Status UNV Acetaminophen/ Hydrocodone Bitart (L[place] 5/325) 1 tab PRN Q6HRS PRN PO PAIN; Start 01/27/19 at 10:15; Status UNV Oxycodone/ Acetaminophen (Percocet 5/325) 1 tab TID PO ; Start 01/27/19 at 14:00 ; Status UNV Zolpidem Tartrate (Ambien) 5 mg QHS PO ; Start 01/27/19 at 21:00; Status UNV Non-Formulary Medication (Levothyroxine Sodium ) 1 tab DAILY PO ; Start at 09:00; Status UNV Non-Formulary Medication (Lisinopril/ Hydrochlorothiazide (Lisinopril-Hctz 20- 25 Mg Tab)) 1 tab DAILY PO ; Start 01/28/19 at 09:00; Status UNV Active Scripts Active [place] 5-325 Tablet (Acetaminophen/Hydrocodone Bitart) 1 Each Tablet 1-2 Each PO PRN Q6HRS PRN as needed for pain Percocet 5-325 Mg Tablet (Oxycodone/Acetaminophen) 1 Each Tablet 1 Tab PO Q4- 6HRS Alprazolam 0.5 Mg Tablet 0.5 Mg PO PRN Q8HRS PRN Reported Eliquis (Apixaban) 5 Mg Tablet 5 Mg PO BID Lisinopril-Hctz 20-25 Mg Tab (Lisinopril/Hydrochlorothiazide) 1 Each Tablet 1 Tab PO DAILY Ambien (Zolpidem Tartrate) 5 Mg Tablet 1 Tab PO QHS Levothyroxine Sodium 50 Mcg Tablet 1 Tab PO DAILY Allergies Allergies: Coded Allergies: codeine (Verified Allergy, Unknown, 01/27/19) sulfamethoxazole (Verified Adverse Reaction, Intermediate, GI UPSET, ) trimethoprim (Verified Adverse Reaction, Intermediate, GI UPSET, 03/01/17) ROS Review of System Abdominal bloatedness, abdominal pain-much better The rest of ROS 14 point resolved Physical Exam General: Alert, Oriented X3, Cooperative, No acute distress HEENT: Atraumatic, PERRLA, EOMI Lungs: Clear to auscultation, Normal air movement Heart: S1S2, RRR, no thrills, no rubs, no gallops, no murmurs Cardiovascular: S1, S2 Breasts: Normal, Rt breast nml w/o mass, Lt breast nml w/o mass, Nipples normal Abdomen: Normal bowel sounds, Soft, No tenderness, No hepatosplenomegaly Male Genitals Exam: normal genitalia, normal prostate Extremities: No clubbing, No cyanosis, No edema, Normal pulses, No tenderness/ swelling Skin: No rashes, No breakdown, No significant lesion Neuro: Normal gait, Normal speech, Strength at 5/5 X4 ext, Normal tone, Sensation intact, Cranial nerves 3-12 NL, Reflexes 2+ Psych/Mental Status: Mental status NL, Mood NL Vitals Vitals Vital Signs Date Time Temp Pulse Resp B/P (MAP) Pulse Ox O2 Delivery O2 Flow Rate FiO2 01/27/19 08:00 Room Air 01/27/19 07:00 97.9 51 16 108/39 (62) 98 97.9 Labs Labs Laboratory Tests Test 01/26/19 21:10 01/26/19 21:35 01/27/19 05:05 White Blood Count 7.9 x10^3/uL (4.0-11.0) Red Blood Count 3.63 x10^6/uL (3.50-5.40) Hemoglobin 11.6 g/dL (12.0-15.5) Hematocrit 34.6 % (36.0-47.0) Mean Corpuscular Volume 95 fL (79-100) Mean Corpuscular Hemoglobin 32 pg (25-35) Mean Corpuscular Hemoglobin Concent 34 g/dL (31-37) Red Cell Distribution Width 16.4 % (11.5-14.5) Platelet Count 293 x10^3/uL (140-400) Neutrophils (%) (Auto) 47 % (31-73) Lymphocytes (%) (Auto) 38 % (24-48) Monocytes (%) (Auto) 10 % (0-9) Eosinophils (%) (Auto) 4 % (0-3) Basophils (%) (Auto) 1 % (0-3) Neutrophils # (Auto) 3.7 x10^3uL (1.8-7.7) Lymphocytes # (Auto) 3.0 x10^3/uL (1.0-4.8) Monocytes # (Auto) 0.8 x10^3/uL (0.0-1.1) Eosinophils # (Auto) 0.3 x10^3/uL (0.0-0.7) Basophils # (Auto) 0.1 x10^3/uL (0.0-0.2) Sodium Level 138 mmol/L (136-145) 139 mmol/L (136-145) Potassium Level 3.1 mmol/L (3.5-5.1) 5.3 mmol/L (3.5-5.1) Chloride Level 101 mmol/L (98-107) 106 mmol/L (98-107) Carbon Dioxide Level 23 mmol/L (21-32) 25 mmol/L (21-32) Anion Gap 14 (6-14) 8 (6-14) Blood Urea Nitrogen 23 mg/dL (7-20) 22 mg/dL (7-20) Creatinine 0.8 mg/dL (0.6-1.0) 0.7 mg/dL (0.6-1.0) Estimated GFR (Cockcroft-Gault) 72.9 85.1 BUN/Creatinine Ratio 29 (6-20) Glucose Level 91 mg/dL (70-99) 77 mg/dL (70-99) Calcium Level 8.7 mg/dL (8.5-10.1) 8.3 mg/dL (8.5-10.1) Total Bilirubin 0.3 mg/dL (0.2-1.0) Aspartate Amino Transf (AST/SGOT) 15 U/L (15-37) Alanine Aminotransferase (ALT/SGPT) 19 U/L (14-59) Alkaline Phosphatase 68 U/L (46-116) Total Protein 6.8 g/dL (6.4-8.2) Albumin 2.9 g/dL (3.4-5.0) Albumin/Globulin Ratio 0.7 (1.0-1.7) Lipase 91 U/L (73-393) Urine Collection Type U cath Urine Color Yellow Urine Clarity Clear Urine pH 5.5 Urine Specific [place] 1.020 Urine Protein 30 mg/dL (NEG-TRACE) Urine Glucose (UA) Negative mg/dL (NEG) Urine Ketones (Stick) Negative mg/dL (NEG) Urine Blood Negative (NEG) Urine Nitrite Negative (NEG) Urine Bilirubin Small (NEG) Urine Urobilinogen Dipstick 0.2 mg/dL (0.2 mg/dL) Urine Leukocyte Esterase Negative (NEG) Urine RBC Occ /HPF (0-2) Urine WBC Occ /HPF (0-4) Urine Squamous Epithelial Cells Occ /LPF Urine Amorphous Sediment Present /HPF Urine Bacteria 0 /HPF (0-FEW) Urine Hyaline Casts Moderate /HPF Urine Mucus Mod /LPF Laboratory Tests Test 01/26/19 21:10 01/26/19 21:35 01/27/19 05:05 White Blood Count 7.9 x10^3/uL (4.0-11.0) Red Blood Count 3.63 x10^6/uL (3.50-5.40) Hemoglobin 11.6 g/dL (12.0-15.5) Hematocrit 34.6 % (36.0-47.0) Mean Corpuscular Volume 95 fL (79-100) Mean Corpuscular Hemoglobin 32 pg (25-35) Mean Corpuscular Hemoglobin Concent 34 g/dL (31-37) Red Cell Distribution Width 16.4 % (11.5-14.5) Platelet Count 293 x10^3/uL (140-400) Neutrophils (%) (Auto) 47 % (31-73) Lymphocytes (%) (Auto) 38 % (24-48) Monocytes (%) (Auto) 10 % (0-9) Eosinophils (%) (Auto) 4 % (0-3) Basophils (%) (Auto) 1 % (0-3) Neutrophils # (Auto) 3.7 x10^3uL (1.8-7.7) Lymphocytes # (Auto) 3.0 x10^3/uL (1.0-4.8) Monocytes # (Auto) 0.8 x10^3/uL (0.0-1.1) Eosinophils # (Auto) 0.3 x10^3/uL (0.0-0.7) Basophils # (Auto) 0.1 x10^3/uL (0.0-0.2) Sodium Level 138 mmol/L (136-145) 139 mmol/L (136-145) Potassium Level 3.1 mmol/L (3.5-5.1) 5.3 mmol/L (3.5-5.1) Chloride Level 101 mmol/L (98-107) 106 mmol/L (98-107) Carbon Dioxide Level 23 mmol/L (21-32) 25 mmol/L (21-32) Anion Gap 14 (6-14) 8 (6-14) Blood Urea Nitrogen 23 mg/dL (7-20) 22 mg/dL (7-20) Creatinine 0.8 mg/dL (0.6-1.0) 0.7 mg/dL (0.6-1.0) Estimated GFR (Cockcroft-Gault) 72.9 85.1 BUN/Creatinine Ratio 29 (6-20) Glucose Level 91 mg/dL (70-99) 77 mg/dL (70-99) Calcium Level 8.7 mg/dL (8.5-10.1) 8.3 mg/dL (8.5-10.1) Total Bilirubin 0.3 mg/dL (0.2-1.0) Aspartate Amino Transf (AST/SGOT) 15 U/L (15-37) Alanine Aminotransferase (ALT/SGPT) 19 U/L (14-59) Alkaline Phosphatase 68 U/L (46-116) Total Protein 6.8 g/dL (6.4-8.2) Albumin 2.9 g/dL (3.4-5.0) Albumin/Globulin Ratio 0.7 (1.0-1.7) Lipase 91 U/L (73-393) Urine Collection Type U cath Urine Color Yellow Urine Clarity Clear Urine pH 5.5 Urine Specific [place] 1.020 Urine Protein 30 mg/dL (NEG-TRACE) Urine Glucose (UA) Negative mg/dL (NEG) Urine Ketones (Stick) Negative mg/dL (NEG) Urine Blood Negative (NEG) Urine Nitrite Negative (NEG) Urine Bilirubin Small (NEG) Urine Urobilinogen Dipstick 0.2 mg/dL (0.2 mg/dL) Urine Leukocyte Esterase Negative (NEG) Urine RBC Occ /HPF (0-2) Urine WBC Occ /HPF (0-4) Urine Squamous Epithelial Cells Occ /LPF Urine Amorphous Sediment Present /HPF Urine Bacteria 0 /HPF (0-FEW) Urine Hyaline Casts Moderate /HPF Urine Mucus Mod /LPF VTE Prophylaxis Ordered VTE Prophylaxis Devices: Yes VTE Pharmacological Prophylaxi: Yes Assessment/Plan Assessment/Plan Ileus-better colon cancer stage IV on chemotherapy Hyperkalemia-from IV supplementation Plan advance diet as tolerated Recheck potassium later If the above 2 is better can go home today with no change in meds Follow-up Dr. Corona as instructed HOme meds reconciled Jamin RN OBS KARL GONZALEZ MD Jan 27, 2019 10:18
--- NOTE | 2019-01-27 10:19 | PDOC3 ---
Discharge Summary Visit Information Date of Admission: Jan 26, 2019 Date of Discharge: Jan 27, 2019 Admitting Diagnosis Comment: Ileus-better colon cancer stage IV on chemotherapy Hyperkalemia-from IV supplementation Plan advance diet as tolerated Recheck potassium later If the above 2 is better can go home today with no change in meds Follow-up Dr. Corona as instructed HOme meds reconciled Jamin RN OBS Final Diagnosis Problems Medical Problems: (1) Abdominal pain Status: Acute (2) [place]'s syndrome Status: Acute Brief Hospital Course Allergies Allergies Coded Allergies Type Severity Reaction Last Updated Verified codeine Allergy Unknown 01/27/19 Yes sulfamethoxazole Adverse Reaction Intermediate GI UPSET 03/01/17 Yes trimethoprim Adverse Reaction Intermediate GI UPSET 03/01/17 Yes Vital Signs Vital Signs Date Time Temp Pulse Resp B/P (MAP) Pulse Ox O2 Delivery O2 Flow Rate FiO2 01/27/19 08:00 Room Air 01/27/19 07:00 97.9 51 16 108/39 (62) 98 97.9 Lab Results Laboratory Tests Test 01/26/19 21:10 01/26/19 21:35 01/27/19 05:05 White Blood Count 7.9 x10^3/uL (4.0-11.0) Red Blood Count 3.63 x10^6/uL (3.50-5.40) Hemoglobin 11.6 g/dL (12.0-15.5) Hematocrit 34.6 % (36.0-47.0) Mean Corpuscular Volume 95 fL (79-100) Mean Corpuscular Hemoglobin 32 pg (25-35) Mean Corpuscular Hemoglobin Concent 34 g/dL (31-37) Red Cell Distribution Width 16.4 % (11.5-14.5) Platelet Count 293 x10^3/uL (140-400) Neutrophils (%) (Auto) 47 % (31-73) Lymphocytes (%) (Auto) 38 % (24-48) Monocytes (%) (Auto) 10 % (0-9) Eosinophils (%) (Auto) 4 % (0-3) Basophils (%) (Auto) 1 % (0-3) Neutrophils # (Auto) 3.7 x10^3uL (1.8-7.7) Lymphocytes # (Auto) 3.0 x10^3/uL (1.0-4.8) Monocytes # (Auto) 0.8 x10^3/uL (0.0-1.1) Eosinophils # (Auto) 0.3 x10^3/uL (0.0-0.7) Basophils # (Auto) 0.1 x10^3/uL (0.0-0.2) Sodium Level 138 mmol/L (136-145) 139 mmol/L (136-145) Potassium Level 3.1 mmol/L (3.5-5.1) 5.3 mmol/L (3.5-5.1) Chloride Level 101 mmol/L (98-107) 106 mmol/L (98-107) Carbon Dioxide Level 23 mmol/L (21-32) 25 mmol/L (21-32) Anion Gap 14 (6-14) 8 (6-14) Blood Urea Nitrogen 23 mg/dL (7-20) 22 mg/dL (7-20) Creatinine 0.8 mg/dL (0.6-1.0) 0.7 mg/dL (0.6-1.0) Estimated GFR (Cockcroft-Gault) 72.9 85.1 BUN/Creatinine Ratio 29 (6-20) Glucose Level 91 mg/dL (70-99) 77 mg/dL (70-99) Calcium Level 8.7 mg/dL (8.5-10.1) 8.3 mg/dL (8.5-10.1) Total Bilirubin 0.3 mg/dL (0.2-1.0) Aspartate Amino Transf (AST/SGOT) 15 U/L (15-37) Alanine Aminotransferase (ALT/SGPT) 19 U/L (14-59) Alkaline Phosphatase 68 U/L (46-116) Total Protein 6.8 g/dL (6.4-8.2) Albumin 2.9 g/dL (3.4-5.0) Albumin/Globulin Ratio 0.7 (1.0-1.7) Lipase 91 U/L (73-393) Urine Collection Type U cath Urine Color Yellow Urine Clarity Clear Urine pH 5.5 Urine Specific [place] 1.020 Urine Protein 30 mg/dL (NEG-TRACE) Urine Glucose (UA) Negative mg/dL (NEG) Urine Ketones (Stick) Negative mg/dL (NEG) Urine Blood Negative (NEG) Urine Nitrite Negative (NEG) Urine Bilirubin Small (NEG) Urine Urobilinogen Dipstick 0.2 mg/dL (0.2 mg/dL) Urine Leukocyte Esterase Negative (NEG) Urine RBC Occ /HPF (0-2) Urine WBC Occ /HPF (0-4) Urine Squamous Epithelial Cells Occ /LPF Urine Amorphous Sediment Present /HPF Urine Bacteria 0 /HPF (0-FEW) Urine Hyaline Casts Moderate /HPF Urine Mucus Mod /LPF Laboratory Tests Test 01/26/19 21:10 01/26/19 21:35 01/27/19 05:05 White Blood Count 7.9 x10^3/uL (4.0-11.0) Red Blood Count 3.63 x10^6/uL (3.50-5.40) Hemoglobin 11.6 g/dL (12.0-15.5) Hematocrit 34.6 % (36.0-47.0) Mean Corpuscular Volume 95 fL (79-100) Mean Corpuscular Hemoglobin 32 pg (25-35) Mean Corpuscular Hemoglobin Concent 34 g/dL (31-37) Red Cell Distribution Width 16.4 % (11.5-14.5) Platelet Count 293 x10^3/uL (140-400) Neutrophils (%) (Auto) 47 % (31-73) Lymphocytes (%) (Auto) 38 % (24-48) Monocytes (%) (Auto) 10 % (0-9) Eosinophils (%) (Auto) 4 % (0-3) Basophils (%) (Auto) 1 % (0-3) Neutrophils # (Auto) 3.7 x10^3uL (1.8-7.7) Lymphocytes # (Auto) 3.0 x10^3/uL (1.0-4.8) Monocytes # (Auto) 0.8 x10^3/uL (0.0-1.1) Eosinophils # (Auto) 0.3 x10^3/uL (0.0-0.7) Basophils # (Auto) 0.1 x10^3/uL (0.0-0.2) Sodium Level 138 mmol/L (136-145) 139 mmol/L (136-145) Potassium Level 3.1 mmol/L (3.5-5.1) 5.3 mmol/L (3.5-5.1) Chloride Level 101 mmol/L (98-107) 106 mmol/L (98-107) Carbon Dioxide Level 23 mmol/L (21-32) 25 mmol/L (21-32) Anion Gap 14 (6-14) 8 (6-14) Blood Urea Nitrogen 23 mg/dL (7-20) 22 mg/dL (7-20) Creatinine 0.8 mg/dL (0.6-1.0) 0.7 mg/dL (0.6-1.0) Estimated GFR (Cockcroft-Gault) 72.9 85.1 BUN/Creatinine Ratio 29 (6-20) Glucose Level 91 mg/dL (70-99) 77 mg/dL (70-99) Calcium Level 8.7 mg/dL (8.5-10.1) 8.3 mg/dL (8.5-10.1) Total Bilirubin 0.3 mg/dL (0.2-1.0) Aspartate Amino Transf (AST/SGOT) 15 U/L (15-37) Alanine Aminotransferase (ALT/SGPT) 19 U/L (14-59) Alkaline Phosphatase 68 U/L (46-116) Total Protein 6.8 g/dL (6.4-8.2) Albumin 2.9 g/dL (3.4-5.0) Albumin/Globulin Ratio 0.7 (1.0-1.7) Lipase 91 U/L (73-393) Urine Collection Type U cath Urine Color Yellow Urine Clarity Clear Urine pH 5.5 Urine Specific [place] 1.020 Urine Protein 30 mg/dL (NEG-TRACE) Urine Glucose (UA) Negative mg/dL (NEG) Urine Ketones (Stick) Negative mg/dL (NEG) Urine Blood Negative (NEG) Urine Nitrite Negative (NEG) Urine Bilirubin Small (NEG) Urine Urobilinogen Dipstick 0.2 mg/dL (0.2 mg/dL) Urine Leukocyte Esterase Negative (NEG) Urine RBC Occ /HPF (0-2) Urine WBC Occ /HPF (0-4) Urine Squamous Epithelial Cells Occ /LPF Urine Amorphous Sediment Present /HPF Urine Bacteria 0 /HPF (0-FEW) Urine Hyaline Casts Moderate /HPF Urine Mucus Mod /LPF Brief Hospital Course Ms. Montemayor is a 63 old [sex] who presented with [ ] 63-year-old female with stage IV colon cancer undergoing chemotherapy with Dr. Corona, well-known to Dr. Balderas when she was admitted here months or years ago during that time she was diagnosed with new colon cancer. In any case she had a CAT scan of the abdomen scheduled but was in severe abdominal pain hence went to the ER and subsequently admitted. CAT scan shows ileus, labs are unremarkable. I see her trying to have a diet, liquid diet for now and much better pain. Had a bowel movement at the ER. Feels comfortable to go home and address her diet as tolerated at home I did consult [facility], there known to her case-they're agreeable with plan. But also mention GI consult if symptoms worsen but so far she looks much better Discharge Information Condition at Discharge: Improved, Stable Disposition/Orders: D/C to Home Scheduled Apixaban (Eliquis) 5 Mg Tablet, 5 MG PO BID for anticoag, (Reported) Entered as Reported by: RICCI COFFMAN on 01/27/19 1006 Last Action: Continued on 01/27/19 1014 by KARL GONZALEZ Levothyroxine Sodium (Levothyroxine Sodium) 50 Mcg Tablet, 1 TAB PO DAILY, #30 Ref 5 (Reported) Entered as Reported by: JALEN SIERRA on 12/08/14 1025 Last Action: Converted on 01/27/19 1014 by KARL GONZALEZ Lisinopril/Hydrochlorothiazide (Lisinopril-Hctz 20-25 Mg Tab) 1 Each Tablet, 1 TAB PO DAILY, #30 (Reported) Entered as Reported by: AIXA GRULLON on 04/27/17 1555 Last Action: Converted on 01/27/19 1014 by KARL GONZALEZ Oxycodone/Apap 5-325 (Percocet 5-325 Mg Tablet ) 1 Each Tablet, 1 TAB PO Q4- 6HRS, #30 Ref 0 Prescribed by: BETTINA SORIA on 05/09/17 1123 Last Action: Continued on 01/27/19 1014 by KARL GONZALEZ Zolpidem Tartrate (Ambien) 5 Mg Tablet, 1 TAB PO QHS, #30 Ref 2 (Reported) Entered as Reported by: RENATA EMERY on 01/25/17 1648 Last Action: Continued on 01/27/19 1014 by KARL GONZALEZ Scheduled PRN Alprazolam (Alprazolam) 0.5 Mg Tablet, 0.5 MG PO PRN Q8HRS PRN for ANXIETY / AGITATION, #30 Prescribed by: BETTINA SORIA on 05/09/17 1123 Last Action: Continued on 01/27/19 1014 by KARL GONZALEZ Hydrocodone/Apap 5-325 ([place] 5-325 Tablet) 1 Each Tablet, 1-2 EACH PO PRN Q6HRS PRN for PAIN, #15 as needed for pain Prescribed by: MENDOZA SILVA MD on 11/01/18 1253 Last Action: Continued on 01/27/19 1014 by KARL MORROW MD Jan 27, 2019 10:19
[2019-01-27] MEDS ORDERED: ANTI-COAG MONITOR BY PHARMACY. MC PRN (10:30)
[2019-01-27 10:57] VITALS: BP 109/44
[2019-01-27 11:00] VITALS: BP 107/40
[2019-01-27] MEDS ORDERED: hydroCHLOROthiazide 25 MG TABLET PO SCH (11:00)
[2019-01-27] MEDS ORDERED: LEVOTHYROXINE 50 MCG TABLET PO SCH (11:00)
[2019-01-27] MEDS ORDERED: LISINOPRIL 20 MG TABLET PO SCH (11:00)
[2019-01-27] MEDS ORDERED: APIXABAN 5 MG TABLET. PO SCH (11:00)
--- NOTE | 2019-01-27 11:56 | NUR ---
SW following for discharge planning. Discussed with RN, pt to be seen by Dr. Corona, Cancer diagnosis since 2017. Scans showed kidney stone present. RN advised no SW needs at this time. SW will continue to follow.
[2019-01-27] MEDS ORDERED: HEPARIN PF 500 UNIT/5 ML DISP.SYRIN. IV ONE (12:30)
--- NOTE | 2019-01-27 12:50 | NUR ---
Discharge instructions and belongings reviewed with patient, verbalized understanding. Patient was escorted out of hospital via ambulation by this RN accompanied by family.
[2019-01-27] MEDS ORDERED: oxyCODONE/APAP 5/325 1 TAB TABLET PO SCH (14:00)
[2019-01-27] MEDS ORDERED: ZOLPIDEM 5 MG TABLET. PO SCH (21:00)
[2019-01-28] MEDS ORDERED: NON FORMULARY ITEM (Lisinopril/Hydrochlorothiazide (Lisinopril-Hctz 20-25 Mg Tab) 1 TAB) PO SCH (09:00)
[2019-02-01] MEDS ORDERED: DICY10CA3 PO (10:27)
== END 2019-01-27 12:51 | disposition home or self-care (01) | DRG 389 ==
LOC: ER 19:56 → 4 NORTH 22:50
PROVIDERS: ADMIT Internal Medicine; ATTEND Internal Medicine
DX: K56.7 Ileus, unspecified (principal); C18.9 Malignant neoplasm of colon, unspecified; E03.9 Hypothyroidism, unspecified; E87.5 Hyperkalemia; F41.9 Anxiety disorder, unspecified; I10 Essential (primary) hypertension; Z79.01 Long term (current) use of anticoagulants; Z85.038 Personal history of other malignant neoplasm of large intestine; Z85.6 Personal history of leukemia; Z90.49 Acquired absence of other specified parts of digestive tract; Z90.710 Acquired absence of both cervix and uterus; Z88.2 Allergy status to sulfonamides; Z88.8 Allergy status to other drugs, medicaments and biological substances; Z92.21 Personal history of antineoplastic chemotherapy
CPT/HCPCS: 36415; 51701; 74177; 80048; 80053; 81001; 83690; 84132; 85025; 87493; 96361; 96374; 96376; 99406; J1170; J2405; J3010; J3480; J7030; Q9967; 99285-25

== ENCOUNTER 2019-01-30 10:48 | Inpatient (IN) | payer OTHER ==
[~2019-01-30] VITALS: Ht 162.6 cm; Wt 64.9 kg
[~2019-01-30 10:48] MED LIST changes: +APIX5TAB PO
[2019-01-30] MEDS ORDERED: IV NORMAL SALINE 1000ML BAG 1,000 ML IV SCH ×2 (11:03→15:16)
[2019-01-30] MEDS: HYDROmorphone 2 MG/ML VIAL IV/SQ PRN ×3 (11:40→14:33)
[2019-01-30 11:45] LABS: BASO % 1 % (0-3); EOS # 0.2 x10^3/uL (0.0-0.7); EOS % 5 % (0-3); HEMATOCRIT 33.7 % (36.0-47.0); HEMOGLOBIN 11.2 g/dL (12.0-15.5); LYMPH # 2.2 x10^3/uL (1.0-4.8); LYMPH % 49 % (24-48); MEAN CORPUSCULAR HEMOGLOBIN 32 pg (25-35); MEAN CORPUSCULAR HGB CONC 33 g/dL (31-37); MEAN CORPUSCULAR VOLUME 95 fL (79-100); MONO # 0.8 x10^3/uL (0.0-1.1); MONO % 18 % (0-9); NEUT # 1.3 x10^3uL (1.8-7.7); NEUT % 28 % (31-73); PLATELET COUNT 289 x10^3/uL (140-400); RED BLOOD COUNT 3.55 x10^6/uL (3.50-5.40); RED CELL DISTRIBUTION WIDTH 16.3 % (11.5-14.5); WHITE BLOOD COUNT 4.6 x10^3/uL (4.0-11.0)
[2019-01-30] MEDS ORDERED: ONDANSETRON PF 4 MG/2 ML VIAL. IV ONE (11:45)
[2019-01-30 11:51] LABS: CALCIUM 9.1 mg/dL (8.5-10.1); CREATININE 0.5 mg/dL (0.6-1.0); GFR 125.4; POTASSIUM 3.5 mmol/L (3.5-5.1)
[2019-01-30 11:57] LABS: ALBUMIN 2.8 g/dL (3.4-5.0); DIRECT BILIRUBIN 0.1 mg/dL (0.0-0.2); TOTAL BILIRUBIN 0.3 mg/dL (0.2-1.0); TOTAL PROTEIN 6.5 g/dL (6.4-8.2)
[2019-01-30] MEDS ORDERED: IOHEXOL 300 MG/ML 100ML VIAL. IV ONE (12:30)
--- NOTE | 2019-01-30 13:06 | RAD ---
Examination: CT ABD PELV W/ IV CONTRST ONLY History: abd pain Omni 300 75ml
Comparison/Correlation: 42,019 CT abdomen and pelvis with contrast Findings: Axial images of the abdomen and pelvis were performed following IV contrast. Sagittal and coronal reformatted images were provided. Visualized lung bases are unremarkable. Cholecystectomy noted. Minimal focal fatty infiltration about the intersegmental fissure noted. Minimal perihepatic ascites is present. Spleen is unremarkable. Adrenal glands are normal. Right renal lower pole calyceal calculus measuring 0.3 cm diameter is present. No hydronephrosis. Marked calcification involving abdominal aorta and iliac arteries. Luminal narrowing diffusely involving the distal abdominal aorta and proximal common iliac arteries noted. There is decompressed bowel within the lower pelvic midline and right lower quadrant. Fluid is noted throughout the distended small bowel and colon. Suture material involving the epigastric level colon is evident in this patient history of proximal hemicolon colectomy. Again is seen nodular, masslike involvement of the omentum at the lower abdominal and upper pelvic level. This measures up to 3.8 cm x 2 cm in the axial plane. No loculated collections. No pelvic free fluid. Urinary bladder is unremarkable. Bony structures are unremarkable for the patient's age. High density within the bowel 4-5 level disc space is evident. Correlate with history of intervention. Impression: Fluid-filled distended large bowel loops especially and also small bowel loops with fluid within them. Increased small bowel distention is evident since the prior exam. Findings raise question of ileus. There is no significant distention of proximal small bowel loops. Findings raise question of ileus or [place] syndrome. Consider further evaluation if obstruction is a persistent concern. Nonobstructive right renal inferior pole punctate calculus or calcification. Nodular masslike involvement of the right lower intra-abdominal wall and omentum is again seen. Severe diffuse atherosclerotic calcific involvement of the abdominal aorta and iliac arteries. PQRS Compliance Statement: One or more of the following individualized dose reduction techniques were utilized for this examination: 1. Automated exposure control 2. Adjustment of the mA and/or kV according to patient size 3. Use of iterative reconstruction technique Electronically signed by: Nato Bucio MD (01/30/2019 1:03 PM) [facility]
[2019-01-30] MEDS ORDERED: MORPHINE SULFATE 2 MG/ML VIAL. IV PRN (15:30)
[2019-01-30] MEDS ORDERED: ONDANSETRON PF 4 MG/2 ML VIAL. IV PRN ×2 (15:30→15:45)
[2019-01-30] MEDS ORDERED: ENOXAPARIN 40 MG/0.4 ML SYRINGE. SQ SCH (16:00)
--- NOTE | 2019-01-30 16:02 | PHYS DOC ---
Past Medical History Past Medical History: Cancer, Hypertension, Hypothyroid, Other Additional Past Medical Histor: ACUTE MYELOID LEUKEMIA (2008) W/ REMISSION, ST 4 COLON CA (2017) Past Surgical History: Appendectomy, Cholecystectomy, Hysterectomy, Tonsillectomy, Other Additional Past Surgical Histo: PARTIAL THYROIDECTOMY Additional Information: 0.25 PPD Alcohol Use: None Drug Use: None Adult General Chief Complaint Chief Complaint: ABDOMINAL PAIN HPI HPI 63-year-old female with history of colorectal cancer stage IV presenting the emergency department today with abdominal pain started around 6 AM. She has had abdominal pain intermittently since being discharged but this morning he was worse. It is sharp shooting pain that is generalized nonradiating and without alleviating factors. Past medical history: Colorectal cancer stage IV, hypertension, and well. Surgical history: Appendectomy, cholecystectomy, hysterectomy, partial thyroid removal, tonsillectomy. Social history: Patient smokes, denies IV drug use or drinking. Review of systems is negative for chest pain shortness of breath fevers chills vomiting. All other review of systems is negative. ED course: 63-year-old female presenting the emergency department today with abdominal pain. On arrival she is afebrile with a normal heart rate. Blood pressure mildly elevated. Patient is given IV fluids nausea and pain medications here in the emergency room. Abdominal exam shows mild tenderness without rebound tenderness or guarding. Tenderness is generalized and not focal. CBC unremarkable. Hemoglobin is within normal limits. Chemistry panel unremarkable. Labs otherwise unremarkable. CT shows possible ileus similar to previous. We will keep the patient nothing by mouth and seek admission to the hospital for IV fluid administration pain administration and further treatment and care. I spoke with Dr. Key excepted the patient for admission. Basic bridge orders placed. Current Medications Current Medications Current Medications Medications (Trade) Dose Ordered Sig/Nneka Start Time Stop Time Status Last Admin Dose Admin Enoxaparin Sodium (Lovenox 40mg Syringe) 40 mg Q24H 01/30/19 16:00 Hydromorphone HCl (Dilaudid) 0.5 mg PRN Q1HR PRN 01/30/19 11:15 01/30/19 14:34 DC 01/30/19 14:33 0.5 MG Iohexol (Omnipaque 300 Mg/ml) 75 ml 1X ONCE 01/30/19 12:30 01/30/19 12:32 DC 01/30/19 12:42 75 ML Morphine Sulfate (Morphine Sulfate) 2 mg PRN Q2HR PRN 01/30/19 15:30 01/31/19 15:29 Ondansetron HCl (Zofran) 4 mg PRN Q6HRS PRN 01/30/19 15:45 Pantoprazole Sodium (PROTONIX VIAL for IV PUSH) 40 mg DAILYAC 01/30/19 16:00 Potassium Chloride/Dextrose/ Sod Cl 1,000 ml @ 80 mls/hr [id number] 01/30/19 15:45 Sodium Chloride 1,000 ml @ 100 mls/hr Q10H 01/30/19 15:16 01/30/19 15:40 DC Allergies Allergies Allergies Coded Allergies Type Severity Reaction Last Updated Verified codeine Allergy Unknown 01/27/19 Yes sulfamethoxazole Adverse Reaction Intermediate GI UPSET 03/01/17 Yes trimethoprim Adverse Reaction Intermediate GI UPSET 03/01/17 Yes Physical Exam Physical Exam Constitutional: Well developed, well nourished, no acute distress, non-toxic appearance. [] HENT: Normocephalic, atraumatic, bilateral external ears normal, oropharynx moist, no oral exudates, nose normal. Eyes: PERRLA, EOMI, conjunctiva normal, no discharge. [] Neck: Normal range of motion, no tenderness, supple, no stridor. Cardiovascular:Heart rate regular rhythm, no murmur [] Lungs & Thorax: Bilateral breath sounds clear to auscultation [] Abdomen: Bowel sounds normal, soft, mild tenderness to palpation without a focus , no masses, no pulsatile masses. Skin: Warm, dry, no erythema, no rash. [] Back: No tenderness, no CVA tenderness. Extremities: No tenderness, no cyanosis, no clubbing, ROM intact, no edema. [] Neurologic: Alert and oriented X 3, normal motor function, normal sensory function, no focal deficits noted. Psychologic: Affect normal, judgement normal, mood normal. [] Current Patient Data Vital Signs Vital Signs Date Time Temp Pulse Resp B/P (MAP) Pulse Ox O2 Delivery O2 Flow Rate FiO2 01/30/19 15:00 72 16 108/62 (77) 98 Room Air 01/30/19 10:50 98.2 98.2 Lab Values Laboratory Tests Test 01/30/19 11:20 White Blood Count 4.6 x10^3/uL (4.0-11.0) Red Blood Count 3.55 x10^6/uL (3.50-5.40) Hemoglobin 11.2 g/dL (12.0-15.5) L Hematocrit 33.7 % (36.0-47.0) L Mean Corpuscular Volume 95 fL (79-100) Mean Corpuscular Hemoglobin 32 pg (25-35) Mean Corpuscular Hemoglobin Concent 33 g/dL (31-37) Red Cell Distribution Width 16.3 % (11.5-14.5) H Platelet Count 289 x10^3/uL (140-400) Neutrophils (%) (Auto) 28 % (31-73) L Lymphocytes (%) (Auto) 49 % (24-48) H Monocytes (%) (Auto) 18 % (0-9) H Eosinophils (%) (Auto) 5 % (0-3) H Basophils (%) (Auto) 1 % (0-3) Neutrophils # (Auto) 1.3 x10^3uL (1.8-7.7) L Lymphocytes # (Auto) 2.2 x10^3/uL (1.0-4.8) Monocytes # (Auto) 0.8 x10^3/uL (0.0-1.1) Eosinophils # (Auto) 0.2 x10^3/uL (0.0-0.7) Basophils # (Auto) 0.0 x10^3/uL (0.0-0.2) Sodium Level 139 mmol/L (136-145) Potassium Level 3.5 mmol/L (3.5-5.1) Chloride Level 102 mmol/L (98-107) Carbon Dioxide Level 26 mmol/L (21-32) Anion Gap 11 (6-14) Blood Urea Nitrogen 10 mg/dL (7-20) Creatinine 0.5 mg/dL (0.6-1.0) L Estimated GFR (Cockcroft-Gault) 125.4 Glucose Level 90 mg/dL (70-99) Calcium Level 9.1 mg/dL (8.5-10.1) Total Bilirubin 0.3 mg/dL (0.2-1.0) Direct Bilirubin 0.1 mg/dL (0.0-0.2) Aspartate Amino Transferase (AST) 19 U/L (15-37) Alanine Aminotransferase (ALT) 17 U/L (14-59) Alkaline Phosphatase 70 U/L (46-116) Total Protein 6.5 g/dL (6.4-8.2) Albumin 2.8 g/dL (3.4-5.0) L Lipase 73 U/L (73-393) Laboratory Tests 01/30/19 11:20 Laboratory Tests 01/30/19 11:20 EKG EKG [] Radiology/Procedures Radiology/Procedures [] Course & Med Decision Making Course & Med Decision Making Pertinent Labs and Imaging studies reviewed. (See chart for details) [] Dragon Disclaimer Dragon Disclaimer This electronic medical record was generated, in whole or in part, using a voice recognition dictation system. Departure Departure Impression: Primary Impression: Abdominal pain Additional Impressions: Colon cancer Ileus Disposition: ADMITTED INPATIENT Condition: STABLE Referrals: ZEHRA SMITH (PCP) Problem Qualifiers EULALIO HAILE MD Jan 30, 2019 16:02
--- NOTE | 2019-01-30 16:21 | PDOC1 ---
History and Physical Date of Admission Date of Admission DATE: 01/30/19 TIME: 16:15 Identification/Chief Complaint Chief Complaint abd pain, severe this AM Source Source: Caregiver, Chart review, Patient History of Present Illness History of Present Illness 63-year-old female I just discharged for 3 days ago for the same: Date of Admission: Jan 26, 2019 Date of Discharge: Jan 27, 2019 Admitting Diagnosis Comment: Ileus-better colon cancer stage IV on chemotherapy Hyperkalemia-from IV supplementation She felt better when I discharged her but today this morning woke up severe pain. No nausea emesis. This time electrolytes are normal. She still does smoke half a pack a day. She follows with Dr. Corona for chemotherapy. She does not see any GI or [facility] anymore. She tends to have loose stools as she had 1 foot of bowel resected plus some small bowel resection too. She'll be admitted with the morgan garrido vs SBO- CT read is maybe slightly worse today as per radiology read than the last scan she had 3 days ago Past Medical History Cardiovascular: HTN GI: No pertinent hx Heme/Onc: Cancer, Other Psych: Other Rheumatologic: No pertinent hx Renal/: No pertinent hx Endocrine: Hypothyroidism Past Surgical History Past Surgical History: Appendectomy, Cholecystectomy, Colon Resection, Other Family History Family History: Hypothyroidism, Other Social History Smoke: <1 pack per day ALCOHOL: none Drugs: None Current Problem List Problem List Problems Medical Problems: (1) Abdominal pain Status: Acute (2) Colon cancer Status: Acute Current Medications Current Medications Current Medications Hydromorphone HCl (Dilaudid) 0.5 mg PRN Q1HR PRN IV/SQ PAIN GREATER THAN 3/10 Last administered on 01/30/19at 14:33; Start 01/30/19 at 11:15; Stop 01/30/19 at 14:34; Status DC Sodium Chloride 1,000 ml @ 1,000 mls/hr Q1H IV Last administered on 01/30/19at 11:03; Start 01/30/19 at 11:03; Stop 01/30/19 at 12:02; Status DC Ondansetron HCl (Zofran) 4 mg 1X ONCE IV Last administered on 01/30/19at 11:40 ; Start 01/30/19 at 11:45; Stop 01/30/19 at 11:46; Status DC Iohexol (Omnipaque 300 Mg/ml) 75 ml 1X ONCE IV Last administered on 01/30/19at 12:42; Start 01/30/19 at 12:30; Stop 01/30/19 at 12:32; Status DC Ondansetron HCl (Zofran) 4 mg PRN Q8HRS PRN IV NAUSEA/VOMITING; Start 01/30/19 at 15:30; Stop 01/30/19 at 15:40; Status DC Morphine Sulfate (Morphine Sulfate) 2 mg PRN Q2HR PRN IV PAIN; Start 01/30/19 at 15:30; Stop 01/31/19 at 15:29 Sodium Chloride 1,000 ml @ 100 mls/hr Q10H IV ; Start 01/30/19 at 15:16; Stop 01/30/19 at 15:40; Status DC Ondansetron HCl (Zofran) 4 mg PRN Q6HRS PRN IV NAUSEA/VOMITING; Start 01/30/19 at 15:45 Potassium Chloride/Dextrose/ Sod Cl 1,000 ml @ 80 mls/hr [id number] IV ; Start 10/08 at 15:45 Pantoprazole Sodium (PROTONIX VIAL for IV PUSH) 40 mg DAILYAC IVP ; Start at 16:00 Enoxaparin Sodium (Lovenox 40mg Syringe) 40 mg Q24H SQ ; Start 01/30/19 at 16:00 Active Scripts Active [place] 5-325 Tablet (Acetaminophen/Hydrocodone Bitart) 1 Each Tablet 1-2 Each PO PRN Q6HRS PRN as needed for pain Percocet 5-325 Mg Tablet (Oxycodone/Acetaminophen) 1 Each Tablet 1 Tab PO Q4- 6HRS Alprazolam 0.5 Mg Tablet 0.5 Mg PO PRN Q8HRS PRN Reported Eliquis (Apixaban) 5 Mg Tablet 5 Mg PO BID Lisinopril-Hctz 20-25 Mg Tab (Lisinopril/Hydrochlorothiazide) 1 Each Tablet 1 Tab PO DAILY Ambien (Zolpidem Tartrate) 5 Mg Tablet 1 Tab PO QHS Levothyroxine Sodium 50 Mcg Tablet 1 Tab PO DAILY Allergies Allergies: Coded Allergies: codeine (Verified Allergy, Unknown, 01/27/19) sulfamethoxazole (Verified Adverse Reaction, Intermediate, GI UPSET, ) trimethoprim (Verified Adverse Reaction, Intermediate, GI UPSET, 03/01/17) ROS Review of System Asper history of present illness, the rest of ROS 14 point negative Physical Exam General: Alert, Oriented X3, Cooperative, No acute distress HEENT: Atraumatic, PERRLA, EOMI Lungs: Clear to auscultation, Normal air movement Heart: S1S2, RRR, no thrills, no rubs, no gallops, no murmurs Cardiovascular: S1, S2 Abdomen: Soft, Other (hypoactive bowel sounds, nontender, mid abd scar) Rectal Exam: not examined PELVIC: Nml ext genitalia Extremities: No clubbing, No cyanosis, No edema, Normal pulses, No tenderness/ swelling Skin: No rashes, No breakdown, No significant lesion Neuro: Normal gait, Normal speech, Strength at 5/5 X4 ext, Normal tone, Sensation intact, Cranial nerves 3-12 NL, Reflexes 2+ Psych/Mental Status: Mental status NL, Mood NL Vitals Vitals Vital Signs Date Time Temp Pulse Resp B/P (MAP) Pulse Ox O2 Delivery O2 Flow Rate FiO2 01/30/19 15:00 72 16 108/62 (77) 98 Room Air 01/30/19 10:50 98.2 98.2 Labs Labs Laboratory Tests Test 01/30/19 11:20 White Blood Count 4.6 x10^3/uL (4.0-11.0) Red Blood Count 3.55 x10^6/uL (3.50-5.40) Hemoglobin 11.2 g/dL (12.0-15.5) Hematocrit 33.7 % (36.0-47.0) Mean Corpuscular Volume 95 fL (79-100) Mean Corpuscular Hemoglobin 32 pg (25-35) Mean Corpuscular Hemoglobin Concent 33 g/dL (31-37) Red Cell Distribution Width 16.3 % (11.5-14.5) Platelet Count 289 x10^3/uL (140-400) Neutrophils (%) (Auto) 28 % (31-73) Lymphocytes (%) (Auto) 49 % (24-48) Monocytes (%) (Auto) 18 % (0-9) Eosinophils (%) (Auto) 5 % (0-3) Basophils (%) (Auto) 1 % (0-3) Neutrophils # (Auto) 1.3 x10^3uL (1.8-7.7) Lymphocytes # (Auto) 2.2 x10^3/uL (1.0-4.8) Monocytes # (Auto) 0.8 x10^3/uL (0.0-1.1) Eosinophils # (Auto) 0.2 x10^3/uL (0.0-0.7) Basophils # (Auto) 0.0 x10^3/uL (0.0-0.2) Sodium Level 139 mmol/L (136-145) Potassium Level 3.5 mmol/L (3.5-5.1) Chloride Level 102 mmol/L (98-107) Carbon Dioxide Level 26 mmol/L (21-32) Anion Gap 11 (6-14) Blood Urea Nitrogen 10 mg/dL (7-20) Creatinine 0.5 mg/dL (0.6-1.0) Estimated GFR (Cockcroft-Gault) 125.4 Glucose Level 90 mg/dL (70-99) Calcium Level 9.1 mg/dL (8.5-10.1) Total Bilirubin 0.3 mg/dL (0.2-1.0) Direct Bilirubin 0.1 mg/dL (0.0-0.2) Aspartate Amino Transf (AST/SGOT) 19 U/L (15-37) Alanine Aminotransferase (ALT/SGPT) 17 U/L (14-59) Alkaline Phosphatase 70 U/L (46-116) Total Protein 6.5 g/dL (6.4-8.2) Albumin 2.8 g/dL (3.4-5.0) Lipase 73 U/L (73-393) Laboratory Tests Test 01/30/19 11:20 White Blood Count 4.6 x10^3/uL (4.0-11.0) Red Blood Count 3.55 x10^6/uL (3.50-5.40) Hemoglobin 11.2 g/dL (12.0-15.5) Hematocrit 33.7 % (36.0-47.0) Mean Corpuscular Volume 95 fL (79-100) Mean Corpuscular Hemoglobin 32 pg (25-35) Mean Corpuscular Hemoglobin Concent 33 g/dL (31-37) Red Cell Distribution Width 16.3 % (11.5-14.5) Platelet Count 289 x10^3/uL (140-400) Neutrophils (%) (Auto) 28 % (31-73) Lymphocytes (%) (Auto) 49 % (24-48) Monocytes (%) (Auto) 18 % (0-9) Eosinophils (%) (Auto) 5 % (0-3) Basophils (%) (Auto) 1 % (0-3) Neutrophils # (Auto) 1.3 x10^3uL (1.8-7.7) Lymphocytes # (Auto) 2.2 x10^3/uL (1.0-4.8) Monocytes # (Auto) 0.8 x10^3/uL (0.0-1.1) Eosinophils # (Auto) 0.2 x10^3/uL (0.0-0.7) Basophils # (Auto) 0.0 x10^3/uL (0.0-0.2) Sodium Level 139 mmol/L (136-145) Potassium Level 3.5 mmol/L (3.5-5.1) Chloride Level 102 mmol/L (98-107) Carbon Dioxide Level 26 mmol/L (21-32) Anion Gap 11 (6-14) Blood Urea Nitrogen 10 mg/dL (7-20) Creatinine 0.5 mg/dL (0.6-1.0) Estimated GFR (Cockcroft-Gault) 125.4 Glucose Level 90 mg/dL (70-99) Calcium Level 9.1 mg/dL (8.5-10.1) Total Bilirubin 0.3 mg/dL (0.2-1.0) Direct Bilirubin 0.1 mg/dL (0.0-0.2) Aspartate Amino Transf (AST/SGOT) 19 U/L (15-37) Alanine Aminotransferase (ALT/SGPT) 17 U/L (14-59) Alkaline Phosphatase 70 U/L (46-116) Total Protein 6.5 g/dL (6.4-8.2) Albumin 2.8 g/dL (3.4-5.0) Lipase 73 U/L (73-393) VTE Prophylaxis Ordered VTE Prophylaxis Devices: Yes VTE Pharmacological Prophylaxi: Yes Assessment/Plan Assessment/Plan A/P: Ileus-better, sbo, 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 Discussed my plan of care with the patient seen at KARL LIM MD Jan 30, 2019 16:21
[2019-01-30 16:30] VITALS: BP 103/39
[2019-01-30] MEDS ORDERED: NICOTINE 21MG PATCH. TD PRN (16:30)
[2019-01-30] MEDS: POTASSIUM CL 40MEQ D5-0.45NACL 1,000 ML IV SCH (17:58)
[2019-01-30] MEDS: PANTOPRAZOLE IV PUSH 40 MG VIAL. IVP SCH (18:05)
[2019-01-30 19:00] VITALS: BP 111/44
[2019-01-30] MEDS: HYDROmorphone 2 MG/ML VIAL IVP PRN ×2 (19:30→23:30)
[2019-01-30 23:00] VITALS: BP 140/53
--- NOTE | 2019-01-31 00:57 | NUR ---
Patient frustrated that ambien was held due to NPO status. Offered to pablo CORTEZ for possible IV antianxiety medication, but patient refused. Patient later took IV pain medication instead.
[2019-01-31 03:00] VITALS: BP 128/53
[2019-01-31] MEDS: HYDROmorphone 2 MG/ML VIAL IVP PRN ×2 (03:34→20:08)
[2019-01-31] MEDS: POTASSIUM CL 40MEQ D5-0.45NACL 1,000 ML IV SCH ×3 (03:35→13:27)
[2019-01-31 07:00] VITALS: BP 131/55
--- NOTE | 2019-01-31 07:43 | PDOC ---
PROGRESS NOTES Chief Complaint Chief Complaint colon cancer stage IV on chemotherapy s/p prior colon resection Hyperkalemia Ileus-better, sbo, morgan syndrome Smoker Chronic diarrhea Insomnia History of Present Illness History of Present Illness Ms Montemayor is a 63yo F w/ PMHx HTN, Hypothyroidism, DVT/PE, h/o AML (2007), stage IV colon cancer with previous surgery with Dr Balderas-- palliative resection , ileostomy and takedown for Colon cancer with suspected mesenteric involvement, extensive omental caking, diffuse metastasis throughout the peritoneal cavity, large neuro obstructing mass of the left transverse colon who continues her chemotherapy with Folfox per Dr. Corona who was readmitted with intense abdominal pain, has been on bowel rest after CT showed possible small bowel obstruction. Today she is hungry, had multiple BM overnight. She had meds held for the past 18 hours as well. She is in relatively good spirits. Denies CP or SOB, no calf tenderness. Restart meds Full liquid if ok with GI and general surgery Vitals Vitals Vital Signs Date Time Temp Pulse Resp B/P (MAP) Pulse Ox O2 Delivery O2 Flow Rate FiO2 01/31/19 04:07 17 Room Air 01/31/19 03:00 98.1 50 128/53 (78) 97 98.1 Physical Exam General: Alert, Oriented X3, Cooperative, No acute distress Lungs: Clear Abdomen: Soft, Other (hypoactive bowel sounds, nontender, mid abd scar) Extremities: No clubbing, No cyanosis, No edema, Normal pulses, No tenderness/ swelling Skin: No rashes, No breakdown, No significant lesion Labs LABS Laboratory Tests Test 01/30/19 11:20 White Blood Count 4.6 x10^3/uL (4.0-11.0) Red Blood Count 3.55 x10^6/uL (3.50-5.40) Hemoglobin 11.2 g/dL (12.0-15.5) Hematocrit 33.7 % (36.0-47.0) Mean Corpuscular Volume 95 fL (79-100) Mean Corpuscular Hemoglobin 32 pg (25-35) Mean Corpuscular Hemoglobin Concent 33 g/dL (31-37) Red Cell Distribution Width 16.3 % (11.5-14.5) Platelet Count 289 x10^3/uL (140-400) Neutrophils (%) (Auto) 28 % (31-73) Lymphocytes (%) (Auto) 49 % (24-48) Monocytes (%) (Auto) 18 % (0-9) Eosinophils (%) (Auto) 5 % (0-3) Basophils (%) (Auto) 1 % (0-3) Neutrophils # (Auto) 1.3 x10^3uL (1.8-7.7) Lymphocytes # (Auto) 2.2 x10^3/uL (1.0-4.8) Monocytes # (Auto) 0.8 x10^3/uL (0.0-1.1) Eosinophils # (Auto) 0.2 x10^3/uL (0.0-0.7) Basophils # (Auto) 0.0 x10^3/uL (0.0-0.2) Sodium Level 139 mmol/L (136-145) Potassium Level 3.5 mmol/L (3.5-5.1) Chloride Level 102 mmol/L (98-107) Carbon Dioxide Level 26 mmol/L (21-32) Anion Gap 11 (6-14) Blood Urea Nitrogen 10 mg/dL (7-20) Creatinine 0.5 mg/dL (0.6-1.0) Estimated GFR (Cockcroft-Gault) 125.4 Glucose Level 90 mg/dL (70-99) Calcium Level 9.1 mg/dL (8.5-10.1) Total Bilirubin 0.3 mg/dL (0.2-1.0) Direct Bilirubin 0.1 mg/dL (0.0-0.2) Aspartate Amino Transf (AST/SGOT) 19 U/L (15-37) Alanine Aminotransferase (ALT/SGPT) 17 U/L (14-59) Alkaline Phosphatase 70 U/L (46-116) Total Protein 6.5 g/dL (6.4-8.2) Albumin 2.8 g/dL (3.4-5.0) Lipase 73 U/L (73-393) Assessment and Plan Assessmemt and Plan Problems Medical Problems: (1) Abdominal pain Status: Acute (2) Colon cancer Status: Acute Comment Review of Relevant I have reviewed the following items siena (where applicable) has been applied. Labs Laboratory Tests Test 01/30/19 11:20 White Blood Count 4.6 x10^3/uL (4.0-11.0) Red Blood Count 3.55 x10^6/uL (3.50-5.40) Hemoglobin 11.2 g/dL (12.0-15.5) Hematocrit 33.7 % (36.0-47.0) Mean Corpuscular Volume 95 fL (79-100) Mean Corpuscular Hemoglobin 32 pg (25-35) Mean Corpuscular Hemoglobin Concent 33 g/dL (31-37) Red Cell Distribution Width 16.3 % (11.5-14.5) Platelet Count 289 x10^3/uL (140-400) Neutrophils (%) (Auto) 28 % (31-73) Lymphocytes (%) (Auto) 49 % (24-48) Monocytes (%) (Auto) 18 % (0-9) Eosinophils (%) (Auto) 5 % (0-3) Basophils (%) (Auto) 1 % (0-3) Neutrophils # (Auto) 1.3 x10^3uL (1.8-7.7) Lymphocytes # (Auto) 2.2 x10^3/uL (1.0-4.8) Monocytes # (Auto) 0.8 x10^3/uL (0.0-1.1) Eosinophils # (Auto) 0.2 x10^3/uL (0.0-0.7) Basophils # (Auto) 0.0 x10^3/uL (0.0-0.2) Sodium Level 139 mmol/L (136-145) Potassium Level 3.5 mmol/L (3.5-5.1) Chloride Level 102 mmol/L (98-107) Carbon Dioxide Level 26 mmol/L (21-32) Anion Gap 11 (6-14) Blood Urea Nitrogen 10 mg/dL (7-20) Creatinine 0.5 mg/dL (0.6-1.0) Estimated GFR (Cockcroft-Gault) 125.4 Glucose Level 90 mg/dL (70-99) Calcium Level 9.1 mg/dL (8.5-10.1) Total Bilirubin 0.3 mg/dL (0.2-1.0) Direct Bilirubin 0.1 mg/dL (0.0-0.2) Aspartate Amino Transf (AST/SGOT) 19 U/L (15-37) Alanine Aminotransferase (ALT/SGPT) 17 U/L (14-59) Alkaline Phosphatase 70 U/L (46-116) Total Protein 6.5 g/dL (6.4-8.2) Albumin 2.8 g/dL (3.4-5.0) Lipase 73 U/L (73-393) Laboratory Tests Test 01/30/19 11:20 White Blood Count 4.6 x10^3/uL (4.0-11.0) Red Blood Count 3.55 x10^6/uL (3.50-5.40) Hemoglobin 11.2 g/dL (12.0-15.5) Hematocrit 33.7 % (36.0-47.0) Mean Corpuscular Volume 95 fL (79-100) Mean Corpuscular Hemoglobin 32 pg (25-35) Mean Corpuscular Hemoglobin Concent 33 g/dL (31-37) Red Cell Distribution Width 16.3 % (11.5-14.5) Platelet Count 289 x10^3/uL (140-400) Neutrophils (%) (Auto) 28 % (31-73) Lymphocytes (%) (Auto) 49 % (24-48) Monocytes (%) (Auto) 18 % (0-9) Eosinophils (%) (Auto) 5 % (0-3) Basophils (%) (Auto) 1 % (0-3) Neutrophils # (Auto) 1.3 x10^3uL (1.8-7.7) Lymphocytes # (Auto) 2.2 x10^3/uL (1.0-4.8) Monocytes # (Auto) 0.8 x10^3/uL (0.0-1.1) Eosinophils # (Auto) 0.2 x10^3/uL (0.0-0.7) Basophils # (Auto) 0.0 x10^3/uL (0.0-0.2) Sodium Level 139 mmol/L (136-145) Potassium Level 3.5 mmol/L (3.5-5.1) Chloride Level 102 mmol/L (98-107) Carbon Dioxide Level 26 mmol/L (21-32) Anion Gap 11 (6-14) Blood Urea Nitrogen 10 mg/dL (7-20) Creatinine 0.5 mg/dL (0.6-1.0) Estimated GFR (Cockcroft-Gault) 125.4 Glucose Level 90 mg/dL (70-99) Calcium Level 9.1 mg/dL (8.5-10.1) Total Bilirubin 0.3 mg/dL (0.2-1.0) Direct Bilirubin 0.1 mg/dL (0.0-0.2) Aspartate Amino Transf (AST/SGOT) 19 U/L (15-37) Alanine Aminotransferase (ALT/SGPT) 17 U/L (14-59) Alkaline Phosphatase 70 U/L (46-116) Total Protein 6.5 g/dL (6.4-8.2) Albumin 2.8 g/dL (3.4-5.0) Lipase 73 U/L (73-393) Medications Current Medications Hydromorphone HCl (Dilaudid) 0.5 mg PRN Q1HR PRN IV/SQ PAIN GREATER THAN 3/10 Last administered on 01/30/19at 14:33; Start 01/30/19 at 11:15; Stop 01/30/19 at 14:34; Status DC Sodium Chloride 1,000 ml @ 1,000 mls/hr Q1H IV Last administered on 01/30/19at 11:03; Start 01/30/19 at 11:03; Stop 01/30/19 at 12:02; Status DC Ondansetron HCl (Zofran) 4 mg 1X ONCE IV Last administered on 01/30/19at 11:40 ; Start 01/30/19 at 11:45; Stop 01/30/19 at 11:46; Status DC Iohexol (Omnipaque 300 Mg/ml) 75 ml 1X ONCE IV Last administered on 01/30/19at 12:42; Start 01/30/19 at 12:30; Stop 01/30/19 at 12:32; Status DC Ondansetron HCl (Zofran) 4 mg PRN Q8HRS PRN IV NAUSEA/VOMITING; Start 01/30/19 at 15:30; Stop 01/30/19 at 15:40; Status DC Morphine Sulfate (Morphine Sulfate) 2 mg PRN Q2HR PRN IV PAIN; Start 01/30/19 at 15:30; Stop 01/30/19 at 19:05; Status DC Sodium Chloride 1,000 ml @ 100 mls/hr Q10H IV ; Start 01/30/19 at 15:16; Stop 01/30/19 at 15:40; Status DC Ondansetron HCl (Zofran) 4 mg PRN Q6HRS PRN IV NAUSEA/VOMITING; Start 01/30/19 at 15:45 Potassium Chloride/Dextrose/ Sod Cl 1,000 ml @ 100 mls/hr Q10H IV Last administered on 01/31/19at 03:35; Start 01/30/19 at 15:45 Pantoprazole Sodium (PROTONIX VIAL for IV PUSH) 40 mg DAILYAC IVP Last administered on 01/30/19at 18:05; Start 01/30/19 at 16:00 Enoxaparin Sodium (Lovenox 40mg Syringe) 40 mg Q24H SQ Last administered on 10/08at 18:07; Start 01/30/19 at 16:00 Nicotine (Nicoderm Cq 21mg) 1 patch PRN DAILY PRN TD SMOKING CESSATION; Start 01/30/19 at 16:30 Hydromorphone HCl (Dilaudid) 0.4 mg PRN Q4HRS PRN IVP PAIN Last administered on 01/31/19at 03:34; Start 01/30/19 at 18:45 Active Scripts Active Reported Eliquis (Apixaban) 5 Mg Tablet 5 Mg PO BID Lisinopril-Hctz 20-25 Mg Tab (Lisinopril/Hydrochlorothiazide) 1 Each Tablet 1 Tab PO DAILY Ambien (Zolpidem Tartrate) 5 Mg Tablet 1 Tab PO QHS Levothyroxine Sodium 50 Mcg Tablet 1 Tab PO DAILY Vitals/I & O Vital Sign - Last 24 Hours 01/30/19 01/30/19 01/30/19 01/30/19 10:50 11:30 11:40 12:00 Temp 98.2 98.2 Pulse 74 70 64 Resp 20 16 18 B/P (MAP) 178/75 (109) 174/73 (106) 179/81 (113) Pulse Ox 97 97 98 O2 Delivery Room Air Room Air Room Air Room Air 01/30/19 01/30/19 01/30/19 01/30/19 13:00 14:00 14:30 14:33 Pulse 58 82 76 Resp 16 20 B/P (MAP) 153/71 (98) 117/77 (90) 106/41 (62) Pulse Ox 97 98 98 97 O2 Delivery Room Air Room Air Room Air Room Air 01/30/19 01/30/19 01/30/19 01/30/19 15:00 16:30 16:30 19:00 Temp 98.4 98.9 98.4 98.9 Pulse 72 52 61 Resp 16 18 18 B/P (MAP) 108/62 (77) 103/39 (60) 111/44 (66) Pulse Ox 98 97 95 O2 Delivery Room Air Room Air Room Air Room Air 01/30/19 01/30/19 01/30/19 01/30/19 19:30 20:00 23:00 23:30 Temp 98.3 98.3 Pulse 55 Resp 18 B/P (MAP) 140/53 (82) Pulse Ox 96 O2 Delivery Room Air Room Air Room Air Room Air 01/31/19 01/31/19 01/31/19 03:00 03:34 04:07 Temp 98.1 98.1 Pulse 50 Resp 18 17 17 B/P (MAP) 128/53 (78) Pulse Ox 97 O2 Delivery Room Air Room Air Room Air Images CT abdomen/pelvis - Fluid-filled distended large bowel loops especially and also small bowel loops with fluid within them. Increased small bowel distention is evident since the prior exam. Findings raise question of ileus. There is no significant distention of proximal small bowel loops. Findings raise question of ileus or [place] syndrome. Consider further evaluation if obstruction is a persistent concern. Nonobstructive right renal inferior pole punctate calculus or calcification. Nodular masslike involvement of the right lower intra-abdominal wall and omentum is again seen. Severe diffuse atherosclerotic calcific involvement of the abdominal aorta and iliac arteries. VERONICA DUARTE MD Jan 31, 2019 07:43
[2019-01-31 08:07] LABS: CALCIUM 8.4 mg/dL (8.5-10.1); CREATININE 0.7 mg/dL (0.6-1.0); GFR 85.1
[2019-01-31 08:10] LABS: BASO % 1 % (0-3); EOS # 0.3 x10^3/uL (0.0-0.7); EOS % 8 % (0-3); HEMATOCRIT 31.6 % (36.0-47.0); HEMOGLOBIN 10.3 g/dL (12.0-15.5); LYMPH # 2.2 x10^3/uL (1.0-4.8); LYMPH % 56 % (24-48); MEAN CORPUSCULAR HEMOGLOBIN 32 pg (25-35); MEAN CORPUSCULAR HGB CONC 33 g/dL (31-37); MEAN CORPUSCULAR VOLUME 97 fL (79-100); MONO # 0.6 x10^3/uL (0.0-1.1); MONO % 15 % (0-9); NEUT # 0.8 x10^3uL (1.8-7.7); NEUT % 20 % (31-73); PLATELET COUNT 260 x10^3/uL (140-400); RED BLOOD COUNT 3.26 x10^6/uL (3.50-5.40); RED CELL DISTRIBUTION WIDTH 16.7 % (11.5-14.5)
[2019-01-31] MEDS: PANTOPRAZOLE IV PUSH 40 MG VIAL. IVP SCH (08:33)
--- NOTE | 2019-01-31 10:03 | PDOC2 ---
CONSULT Date of Consult Date of Consult DATE: 01/31/19 TIME: 09:59 Reason for Consult Reason for Consult: abdominal pain Referring Physician Referring Physician: SB Identification/Chief Complaint Chief Complaint abdominal pain Source Source: Chart review, Patient History of Present Illness Reason for Visit: Liana is a 63 yo lady who comes back in with recurrent abdominal pain after going home two days ago. Past Medical History Cardiovascular: HTN GI: No pertinent hx Heme/Onc: Cancer, Other Psych: Other Rheumatologic: No pertinent hx Renal/: No pertinent hx Endocrine: Hypothyroidism Past Surgical History Past Surgical History: Appendectomy, Cholecystectomy, Colon Resection, Other Family History Family History: Hypothyroidism, Other Social History <1 pack per day ALCOHOL: none Drugs: None Lives: with Family Current Problem List Problem List Problems Medical Problems: (1) Abdominal pain Status: Acute (2) Colon cancer Status: Acute Current Medications Current Medications Current Medications Hydromorphone HCl (Dilaudid) 0.5 mg PRN Q1HR PRN IV/SQ PAIN GREATER THAN 3/10 Last administered on 01/30/19at 14:33; Start 01/30/19 at 11:15; Stop 01/30/19 at 14:34; Status DC Sodium Chloride 1,000 ml @ 1,000 mls/hr Q1H IV Last administered on 01/30/19at 11:03; Start 01/30/19 at 11:03; Stop 01/30/19 at 12:02; Status DC Ondansetron HCl (Zofran) 4 mg 1X ONCE IV Last administered on 01/30/19at 11:40 ; Start 01/30/19 at 11:45; Stop 01/30/19 at 11:46; Status DC Iohexol (Omnipaque 300 Mg/ml) 75 ml 1X ONCE IV Last administered on 01/30/19at 12:42; Start 01/30/19 at 12:30; Stop 01/30/19 at 12:32; Status DC Ondansetron HCl (Zofran) 4 mg PRN Q8HRS PRN IV NAUSEA/VOMITING; Start 01/30/19 at 15:30; Stop 01/30/19 at 15:40; Status DC Morphine Sulfate (Morphine Sulfate) 2 mg PRN Q2HR PRN IV PAIN; Start 01/30/19 at 15:30; Stop 01/30/19 at 19:05; Status DC Sodium Chloride 1,000 ml @ 100 mls/hr Q10H IV ; Start 01/30/19 at 15:16; Stop 01/30/19 at 15:40; Status DC Ondansetron HCl (Zofran) 4 mg PRN Q6HRS PRN IV NAUSEA/VOMITING; Start 01/30/19 at 15:45 Potassium Chloride/Dextrose/ Sod Cl 1,000 ml @ 100 mls/hr Q10H IV Last administered on 01/31/19at 03:35; Start 01/30/19 at 15:45 Pantoprazole Sodium (PROTONIX VIAL for IV PUSH) 40 mg DAILYAC IVP Last administered on 01/31/19at 08:33; Start 01/30/19 at 16:00 Enoxaparin Sodium (Lovenox 40mg Syringe) 40 mg Q24H SQ Last administered on 10/08at 18:07; Start 01/30/19 at 16:00 Nicotine (Nicoderm Cq 21mg) 1 patch PRN DAILY PRN TD SMOKING CESSATION; Start 01/30/19 at 16:30 Hydromorphone HCl (Dilaudid) 0.4 mg PRN Q4HRS PRN IVP PAIN Last administered on 01/31/19at 03:34; Start 01/30/19 at 18:45 Active Scripts Active Reported Eliquis (Apixaban) 5 Mg Tablet 5 Mg PO BID Lisinopril-Hctz 20-25 Mg Tab (Lisinopril/Hydrochlorothiazide) 1 Each Tablet 1 Tab PO DAILY Ambien (Zolpidem Tartrate) 5 Mg Tablet 1 Tab PO QHS Levothyroxine Sodium 50 Mcg Tablet 1 Tab PO DAILY Allergies Allergies: Coded Allergies: codeine (Verified Allergy, Intermediate, 01/31/19) sulfamethoxazole (Verified Adverse Reaction, Intermediate, GI UPSET, ) trimethoprim (Verified Adverse Reaction, Intermediate, GI UPSET, 03/01/17) ROS Review of System negative with exception of present complaints Physical Exam General: Alert, Oriented X3, No acute distress HEENT: Atraumatic Lungs: Normal air movement Heart: Regular rate Vitals VITALS Vital Signs Date Time Temp Pulse Resp B/P (MAP) Pulse Ox O2 Delivery O2 Flow Rate FiO2 01/31/19 07:00 98.7 49 18 131/55 (80) 98 Room Air 98.7 Labs Labs Laboratory Tests Test 01/30/19 11:20 01/31/19 07:20 White Blood Count 4.6 x10^3/uL (4.0-11.0) 4.0 x10^3/uL (4.0-11.0) Red Blood Count 3.55 x10^6/uL (3.50-5.40) 3.26 x10^6/uL (3.50-5.40) Hemoglobin 11.2 g/dL (12.0-15.5) 10.3 g/dL (12.0-15.5) Hematocrit 33.7 % (36.0-47.0) 31.6 % (36.0-47.0) Mean Corpuscular Volume 95 fL (79-100) 97 fL (79-100) Mean Corpuscular Hemoglobin 32 pg (25-35) 32 pg (25-35) Mean Corpuscular Hemoglobin Concent 33 g/dL (31-37) 33 g/dL (31-37) Red Cell Distribution Width 16.3 % (11.5-14.5) 16.7 % (11.5-14.5) Platelet Count 289 x10^3/uL (140-400) 260 x10^3/uL (140-400) Neutrophils (%) (Auto) 28 % (31-73) 20 % (31-73) Lymphocytes (%) (Auto) 49 % (24-48) 56 % (24-48) Monocytes (%) (Auto) 18 % (0-9) 15 % (0-9) Eosinophils (%) (Auto) 5 % (0-3) 8 % (0-3) Basophils (%) (Auto) 1 % (0-3) 1 % (0-3) Neutrophils # (Auto) 1.3 x10^3uL (1.8-7.7) 0.8 x10^3uL (1.8-7.7) Lymphocytes # (Auto) 2.2 x10^3/uL (1.0-4.8) 2.2 x10^3/uL (1.0-4.8) Monocytes # (Auto) 0.8 x10^3/uL (0.0-1.1) 0.6 x10^3/uL (0.0-1.1) Eosinophils # (Auto) 0.2 x10^3/uL (0.0-0.7) 0.3 x10^3/uL (0.0-0.7) Basophils # (Auto) 0.0 x10^3/uL (0.0-0.2) 0.0 x10^3/uL (0.0-0.2) Sodium Level 139 mmol/L (136-145) 139 mmol/L (136-145) Potassium Level 3.5 mmol/L (3.5-5.1) 4.0 mmol/L (3.5-5.1) Chloride Level 102 mmol/L (98-107) 105 mmol/L (98-107) Carbon Dioxide Level 26 mmol/L (21-32) 25 mmol/L (21-32) Anion Gap 11 (6-14) 9 (6-14) Blood Urea Nitrogen 10 mg/dL (7-20) 9 mg/dL (7-20) Creatinine 0.5 mg/dL (0.6-1.0) 0.7 mg/dL (0.6-1.0) Estimated GFR (Cockcroft-Gault) 125.4 85.1 Glucose Level 90 mg/dL (70-99) 86 mg/dL (70-99) Calcium Level 9.1 mg/dL (8.5-10.1) 8.4 mg/dL (8.5-10.1) Total Bilirubin 0.3 mg/dL (0.2-1.0) Direct Bilirubin 0.1 mg/dL (0.0-0.2) Aspartate Amino Transf (AST/SGOT) 19 U/L (15-37) Alanine Aminotransferase (ALT/SGPT) 17 U/L (14-59) Alkaline Phosphatase 70 U/L (46-116) Total Protein 6.5 g/dL (6.4-8.2) Albumin 2.8 g/dL (3.4-5.0) Lipase 73 U/L (73-393) Laboratory Tests Test 01/30/19 11:20 01/31/19 07:20 White Blood Count 4.6 x10^3/uL (4.0-11.0) 4.0 x10^3/uL (4.0-11.0) Red Blood Count 3.55 x10^6/uL (3.50-5.40) 3.26 x10^6/uL (3.50-5.40) Hemoglobin 11.2 g/dL (12.0-15.5) 10.3 g/dL (12.0-15.5) Hematocrit 33.7 % (36.0-47.0) 31.6 % (36.0-47.0) Mean Corpuscular Volume 95 fL (79-100) 97 fL (79-100) Mean Corpuscular Hemoglobin 32 pg (25-35) 32 pg (25-35) Mean Corpuscular Hemoglobin Concent 33 g/dL (31-37) 33 g/dL (31-37) Red Cell Distribution Width 16.3 % (11.5-14.5) 16.7 % (11.5-14.5) Platelet Count 289 x10^3/uL (140-400) 260 x10^3/uL (140-400) Neutrophils (%) (Auto) 28 % (31-73) 20 % (31-73) Lymphocytes (%) (Auto) 49 % (24-48) 56 % (24-48) Monocytes (%) (Auto) 18 % (0-9) 15 % (0-9) Eosinophils (%) (Auto) 5 % (0-3) 8 % (0-3) Basophils (%) (Auto) 1 % (0-3) 1 % (0-3) Neutrophils # (Auto) 1.3 x10^3uL (1.8-7.7) 0.8 x10^3uL (1.8-7.7) Lymphocytes # (Auto) 2.2 x10^3/uL (1.0-4.8) 2.2 x10^3/uL (1.0-4.8) Monocytes # (Auto) 0.8 x10^3/uL (0.0-1.1) 0.6 x10^3/uL (0.0-1.1) Eosinophils # (Auto) 0.2 x10^3/uL (0.0-0.7) 0.3 x10^3/uL (0.0-0.7) Basophils # (Auto) 0.0 x10^3/uL (0.0-0.2) 0.0 x10^3/uL (0.0-0.2) Sodium Level 139 mmol/L (136-145) 139 mmol/L (136-145) Potassium Level 3.5 mmol/L (3.5-5.1) 4.0 mmol/L (3.5-5.1) Chloride Level 102 mmol/L (98-107) 105 mmol/L (98-107) Carbon Dioxide Level 26 mmol/L (21-32) 25 mmol/L (21-32) Anion Gap 11 (6-14) 9 (6-14) Blood Urea Nitrogen 10 mg/dL (7-20) 9 mg/dL (7-20) Creatinine 0.5 mg/dL (0.6-1.0) 0.7 mg/dL (0.6-1.0) Estimated GFR (Cockcroft-Gault) 125.4 85.1 Glucose Level 90 mg/dL (70-99) 86 mg/dL (70-99) Calcium Level 9.1 mg/dL (8.5-10.1) 8.4 mg/dL (8.5-10.1) Total Bilirubin 0.3 mg/dL (0.2-1.0) Direct Bilirubin 0.1 mg/dL (0.0-0.2) Aspartate Amino Transf (AST/SGOT) 19 U/L (15-37) Alanine Aminotransferase (ALT/SGPT) 17 U/L (14-59) Alkaline Phosphatase 70 U/L (46-116) Total Protein 6.5 g/dL (6.4-8.2) Albumin 2.8 g/dL (3.4-5.0) Lipase 73 U/L (73-393) Images Images CT done on re-admission is reviewed Assessment/Plan Assessment/Plan hx of colon cancer, s/p resection, receiving chemotherapy ileus vs partial obstruction rec gut rest, IV fluids, serial exams will follow Thanks for consult CHAD ANDERSON MD Jan 31, 2019 10:03
[2019-01-31 10:16] LABS: % ATYL 3 % (0-0); % BANDS 5 % (0-9); % EOS 6 % (0-5); % LYMPHS 56 % (24-48); % MONOS 11 % (0-10); % SEGS 19 % (35-66); PLT ESTIMATE ADEQUATE (ADEQUATE)
[2019-01-31 10:17] LABS: ANISOCYTOSIS SLIGHT; OVALOCYTES FEW; TEAR DROP CELLS OCC
--- NOTE | 2019-01-31 11:30 | NUR ---
This nurse assisted with this patient, paged Dr. Barrow, as well as GI, updated both on Dr. Moses recommendations. This nurse will continue to assist as needed.
[2019-01-31] MEDS ORDERED: fentaNYL 12MCG/HR PATCH 1 PATCH PATCH.TD72 TD SCH (12:15)
--- NOTE | 2019-01-31 12:16 | PDOC2 ---
CONSULT Date of Consult Date of Consult DATE: 01/31/19 TIME: 12:05 Identification/Chief Complaint Chief Complaint abd pain, stage 4 colon cancer History of Present Illness Reason for Visit: 63 yo female with history of stage 4 colon cancer - had resection in 2017 and now has known carcinomatosis and recurrent abd pain- also CT shows persistent ileus and likely partial bowel obstruction- but does not show signs of complete bowel obstruction- has diarrhea 4-5 times per day unchanged and moralez not have n/ v. Tolerating chemo- readmitted with abd pain, severe, stabbing pain consistent with bowel distension. Past Medical History Cardiovascular: HTN GI: No pertinent hx Heme/Onc: Cancer, Other Psych: Other Rheumatologic: No pertinent hx Renal/: No pertinent hx Endocrine: Hypothyroidism Past Surgical History Past Surgical History: Appendectomy, Cholecystectomy, Colon Resection, Other Family History Family History: Hypothyroidism, Other Social History <1 pack per day ALCOHOL: none Drugs: None Lives: with Family Current Problem List Problem List Problems Medical Problems: (1) Abdominal pain Status: Acute (2) Colon cancer Status: Acute Current Medications Current Medications Current Medications Hydromorphone HCl (Dilaudid) 0.5 mg PRN Q1HR PRN IV/SQ PAIN GREATER THAN 3/10 Last administered on 01/30/19at 14:33; Start 01/30/19 at 11:15; Stop 01/30/19 at 14:34; Status DC Sodium Chloride 1,000 ml @ 1,000 mls/hr Q1H IV Last administered on 01/30/19at 11:03; Start 01/30/19 at 11:03; Stop 01/30/19 at 12:02; Status DC Ondansetron HCl (Zofran) 4 mg 1X ONCE IV Last administered on 01/30/19at 11:40 ; Start 01/30/19 at 11:45; Stop 01/30/19 at 11:46; Status DC Iohexol (Omnipaque 300 Mg/ml) 75 ml 1X ONCE IV Last administered on 01/30/19at 12:42; Start 01/30/19 at 12:30; Stop 01/30/19 at 12:32; Status DC Ondansetron HCl (Zofran) 4 mg PRN Q8HRS PRN IV NAUSEA/VOMITING; Start 01/30/19 at 15:30; Stop 01/30/19 at 15:40; Status DC Morphine Sulfate (Morphine Sulfate) 2 mg PRN Q2HR PRN IV PAIN; Start 01/30/19 at 15:30; Stop 01/30/19 at 19:05; Status DC Sodium Chloride 1,000 ml @ 100 mls/hr Q10H IV ; Start 01/30/19 at 15:16; Stop 01/30/19 at 15:40; Status DC Ondansetron HCl (Zofran) 4 mg PRN Q6HRS PRN IV NAUSEA/VOMITING; Start 01/30/19 at 15:45 Potassium Chloride/Dextrose/ Sod Cl 1,000 ml @ 100 mls/hr Q10H IV Last administered on 01/31/19at 03:35; Start 01/30/19 at 15:45 Pantoprazole Sodium (PROTONIX VIAL for IV PUSH) 40 mg DAILYAC IVP Last administered on 01/31/19at 08:33; Start 01/30/19 at 16:00 Enoxaparin Sodium (Lovenox 40mg Syringe) 40 mg Q24H SQ Last administered on 10/08at 18:07; Start 01/30/19 at 16:00; Stop 01/31/19 at 11:36; Status DC Nicotine (Nicoderm Cq 21mg) 1 patch PRN DAILY PRN TD SMOKING CESSATION; Start 01/30/19 at 16:30 Hydromorphone HCl (Dilaudid) 0.4 mg PRN Q4HRS PRN IVP PAIN Last administered on 01/31/19at 03:34; Start 01/30/19 at 18:45 Apixaban (Eliquis) 5 mg BID PO ; Start 01/31/19 at 21:00 Zolpidem Tartrate (Ambien) 5 mg QHS PO ; Start 01/31/19 at 21:00 Levothyroxine Sodium (Synthroid) 50 mcg DAILY06 PO ; Start 01/31/19 at 12:00 Lisinopril (Prinivil) 20 mg DAILY PO ; Start 01/31/19 at 12:00 Hydrochlorothiazide (Hydrodiuril) 25 mg DAILY PO ; Start 01/31/19 at 12:00 Active Scripts Active Reported Eliquis (Apixaban) 5 Mg Tablet 5 Mg PO BID Lisinopril-Hctz 20-25 Mg Tab (Lisinopril/Hydrochlorothiazide) 1 Each Tablet 1 Tab PO DAILY Ambien (Zolpidem Tartrate) 5 Mg Tablet 1 Tab PO QHS Levothyroxine Sodium 50 Mcg Tablet 1 Tab PO DAILY Allergies Allergies: Coded Allergies: codeine (Verified Allergy, Intermediate, 01/31/19) sulfamethoxazole (Verified Adverse Reaction, Intermediate, GI UPSET, ) trimethoprim (Verified Adverse Reaction, Intermediate, GI UPSET, 03/01/17) ROS Gastrointestinal: Yes Abdominal Pain, Yes Diarrhea Physical Exam General: Alert, Oriented X3 HEENT: PERRLA Lungs: Clear to auscultation Heart: Regular rate, Normal S1, Normal S2 Abdomen: Soft, Other (bowel sounds present- only minimally tender) Extremities: No clubbing, No cyanosis, No edema, Normal pulses, No tenderness/ swelling Psych/Mental Status: Mental status NL, Mood NL Vitals VITALS Vital Signs Date Time Temp Pulse Resp B/P (MAP) Pulse Ox O2 Delivery O2 Flow Rate FiO2 01/31/19 07:00 98.7 49 18 131/55 (80) 98 Room Air 98.7 Labs Labs Laboratory Tests Test 01/30/19 11:20 01/31/19 07:20 White Blood Count 4.6 x10^3/uL (4.0-11.0) 4.0 x10^3/uL (4.0-11.0) Red Blood Count 3.55 x10^6/uL (3.50-5.40) 3.26 x10^6/uL (3.50-5.40) Hemoglobin 11.2 g/dL (12.0-15.5) 10.3 g/dL (12.0-15.5) Hematocrit 33.7 % (36.0-47.0) 31.6 % (36.0-47.0) Mean Corpuscular Volume 95 fL (79-100) 97 fL (79-100) Mean Corpuscular Hemoglobin 32 pg (25-35) 32 pg (25-35) Mean Corpuscular Hemoglobin Concent 33 g/dL (31-37) 33 g/dL (31-37) Red Cell Distribution Width 16.3 % (11.5-14.5) 16.7 % (11.5-14.5) Platelet Count 289 x10^3/uL (140-400) 260 x10^3/uL (140-400) Neutrophils (%) (Auto) 28 % (31-73) 20 % (31-73) Lymphocytes (%) (Auto) 49 % (24-48) 56 % (24-48) Monocytes (%) (Auto) 18 % (0-9) 15 % (0-9) Eosinophils (%) (Auto) 5 % (0-3) 8 % (0-3) Basophils (%) (Auto) 1 % (0-3) 1 % (0-3) Neutrophils # (Auto) 1.3 x10^3uL (1.8-7.7) 0.8 x10^3uL (1.8-7.7) Lymphocytes # (Auto) 2.2 x10^3/uL (1.0-4.8) 2.2 x10^3/uL (1.0-4.8) Monocytes # (Auto) 0.8 x10^3/uL (0.0-1.1) 0.6 x10^3/uL (0.0-1.1) Eosinophils # (Auto) 0.2 x10^3/uL (0.0-0.7) 0.3 x10^3/uL (0.0-0.7) Basophils # (Auto) 0.0 x10^3/uL (0.0-0.2) 0.0 x10^3/uL (0.0-0.2) Sodium Level 139 mmol/L (136-145) 139 mmol/L (136-145) Potassium Level 3.5 mmol/L (3.5-5.1) 4.0 mmol/L (3.5-5.1) Chloride Level 102 mmol/L (98-107) 105 mmol/L (98-107) Carbon Dioxide Level 26 mmol/L (21-32) 25 mmol/L (21-32) Anion Gap 11 (6-14) 9 (6-14) Blood Urea Nitrogen 10 mg/dL (7-20) 9 mg/dL (7-20) Creatinine 0.5 mg/dL (0.6-1.0) 0.7 mg/dL (0.6-1.0) Estimated GFR (Cockcroft-Gault) 125.4 85.1 Glucose Level 90 mg/dL (70-99) 86 mg/dL (70-99) Calcium Level 9.1 mg/dL (8.5-10.1) 8.4 mg/dL (8.5-10.1) Total Bilirubin 0.3 mg/dL (0.2-1.0) Direct Bilirubin 0.1 mg/dL (0.0-0.2) Aspartate Amino Transf (AST/SGOT) 19 U/L (15-37) Alanine Aminotransferase (ALT/SGPT) 17 U/L (14-59) Alkaline Phosphatase 70 U/L (46-116) Total Protein 6.5 g/dL (6.4-8.2) Albumin 2.8 g/dL (3.4-5.0) Lipase 73 U/L (73-393) Segmented Neutrophils % 19 % (35-66) Band Neutrophils % 5 % (0-9) Lymphocytes % 56 % (24-48) Atypical Lymphocytes % (Manual) 3 % (0-0) Monocytes % 11 % (0-10) Eosinophils % 6 % (0-5) Platelet Estimate Adequate (ADEQUATE) Anisocytosis Slight Tear Drop Cells Occ Ovalocytes Few Laboratory Tests Test 01/31/19 07:20 White Blood Count 4.0 x10^3/uL (4.0-11.0) Red Blood Count 3.26 x10^6/uL (3.50-5.40) Hemoglobin 10.3 g/dL (12.0-15.5) Hematocrit 31.6 % (36.0-47.0) Mean Corpuscular Volume 97 fL (79-100) Mean Corpuscular Hemoglobin 32 pg (25-35) Mean Corpuscular Hemoglobin Concent 33 g/dL (31-37) Red Cell Distribution Width 16.7 % (11.5-14.5) Platelet Count 260 x10^3/uL (140-400) Neutrophils (%) (Auto) 20 % (31-73) Lymphocytes (%) (Auto) 56 % (24-48) Monocytes (%) (Auto) 15 % (0-9) Eosinophils (%) (Auto) 8 % (0-3) Basophils (%) (Auto) 1 % (0-3) Neutrophils # (Auto) 0.8 x10^3uL (1.8-7.7) Lymphocytes # (Auto) 2.2 x10^3/uL (1.0-4.8) Monocytes # (Auto) 0.6 x10^3/uL (0.0-1.1) Eosinophils # (Auto) 0.3 x10^3/uL (0.0-0.7) Basophils # (Auto) 0.0 x10^3/uL (0.0-0.2) Segmented Neutrophils % 19 % (35-66) Band Neutrophils % 5 % (0-9) Lymphocytes % 56 % (24-48) Atypical Lymphocytes % (Manual) 3 % (0-0) Monocytes % 11 % (0-10) Eosinophils % 6 % (0-5) Platelet Estimate Adequate (ADEQUATE) Anisocytosis Slight Tear Drop Cells Occ Ovalocytes Few Sodium Level 139 mmol/L (136-145) Potassium Level 4.0 mmol/L (3.5-5.1) Chloride Level 105 mmol/L (98-107) Carbon Dioxide Level 25 mmol/L (21-32) Anion Gap 9 (6-14) Blood Urea Nitrogen 9 mg/dL (7-20) Creatinine 0.7 mg/dL (0.6-1.0) Estimated GFR (Cockcroft-Gault) 85.1 Glucose Level 86 mg/dL (70-99) Calcium Level 8.4 mg/dL (8.5-10.1) Images Images CT- similar to the past- distended colon and small bowel with decompressed distal bowel- carcinomatosis Assessment/Plan Assessment/Plan Partial bowel obstruction with distension of bowel causing pain- but maintains diarrhea and denies n/v- suggesting incomplete obstruction and likely ileus- this type of bowel pain does not usually respond completely to narcotics Stage 4 colon cancer with carcinomatosis Plan- since no n/v and still with diarrhea, will add full liquids as tolerated and suggest soft diet going forward- avoid any difficult to digest foods likely salads, fruits, nuts or uncooked foods to avoid trigger of more complete obstruction will add anti-spasmotic to present narcotics and monitor response will defer adjustment of narcotic treatment otherwise once able to tolerate FLD and pain better controlled, OK for d/c from GI point of view SKIP NGUYEN MD Jan 31, 2019 12:16
[2019-01-31] MEDS: LEVOTHYROXINE 50 MCG TABLET PO SCH (13:23)
[2019-01-31] MEDS: hydroCHLOROthiazide 25 MG TABLET PO SCH (13:27)
[2019-01-31] MEDS: LISINOPRIL 20 MG TABLET PO SCH (13:28)
[2019-01-31] MEDS ORDERED: ANTI-COAG MONITOR BY PHARMACY. MC PRN (13:30)
[2019-01-31] MEDS: DICYCLOMINE HCL 10 MG CAPSULE PO PRN (13:35)
[2019-01-31 15:00] VITALS: BP 147/67
[2019-01-31 19:00] VITALS: BP 162/72
[2019-01-31] MEDS ORDERED: ZOLPIDEM 5 MG TABLET. PO SCH (21:00)
[2019-01-31] MEDS: APIXABAN 5 MG TABLET. PO SCH (21:12)
[2019-01-31 23:00] VITALS: BP 154/55
[2019-02-01 03:19] VITALS: BP 144/66
[2019-02-01] MEDS: PANTOPRAZOLE IV PUSH 40 MG VIAL. IVP SCH (05:51)
[2019-02-01] MEDS: LEVOTHYROXINE 50 MCG TABLET PO SCH (05:51)
[2019-02-01 07:00] VITALS: BP 145/55
[2019-02-01] MEDS: POTASSIUM CL 40MEQ D5-0.45NACL 1,000 ML IV SCH (07:52)
[2019-02-01] MEDS: hydroCHLOROthiazide 25 MG TABLET PO SCH (09:27)
[2019-02-01] MEDS: APIXABAN 5 MG TABLET. PO SCH (09:27)
[2019-02-01] MEDS: LISINOPRIL 20 MG TABLET PO SCH (09:27)
[2019-02-01] MEDS: DICYCLOMINE HCL 10 MG CAPSULE PO PRN (09:42)
--- NOTE | 2019-02-01 09:42 | PDOC ---
SURGICAL PROGRESS NOTE Subjective feels better taking po passing some gas Vital Signs Vital Signs Date Time Temp Pulse Resp B/P (MAP) Pulse Ox O2 Delivery O2 Flow Rate FiO2 02/01/19 09:27 50 145/55 02/01/19 07:00 98.1 17 95 Room Air 98.1 I&O Intake and Output 02/01/19 07:00 Intake Total 240 ml Balance 240 ml Intake Oral 240 ml # Voids 8 PATIENT HAS A GOLDEN: No General: Alert, Oriented X3 Abdomen: Soft, No tenderness Labs Laboratory Tests Test 01/30/19 11:20 01/31/19 07:20 White Blood Count 4.6 x10^3/uL (4.0-11.0) 4.0 x10^3/uL (4.0-11.0) Red Blood Count 3.55 x10^6/uL (3.50-5.40) 3.26 x10^6/uL (3.50-5.40) Hemoglobin 11.2 g/dL (12.0-15.5) 10.3 g/dL (12.0-15.5) Hematocrit 33.7 % (36.0-47.0) 31.6 % (36.0-47.0) Mean Corpuscular Volume 95 fL (79-100) 97 fL (79-100) Mean Corpuscular Hemoglobin 32 pg (25-35) 32 pg (25-35) Mean Corpuscular Hemoglobin Concent 33 g/dL (31-37) 33 g/dL (31-37) Red Cell Distribution Width 16.3 % (11.5-14.5) 16.7 % (11.5-14.5) Platelet Count 289 x10^3/uL (140-400) 260 x10^3/uL (140-400) Neutrophils (%) (Auto) 28 % (31-73) 20 % (31-73) Lymphocytes (%) (Auto) 49 % (24-48) 56 % (24-48) Monocytes (%) (Auto) 18 % (0-9) 15 % (0-9) Eosinophils (%) (Auto) 5 % (0-3) 8 % (0-3) Basophils (%) (Auto) 1 % (0-3) 1 % (0-3) Neutrophils # (Auto) 1.3 x10^3uL (1.8-7.7) 0.8 x10^3uL (1.8-7.7) Lymphocytes # (Auto) 2.2 x10^3/uL (1.0-4.8) 2.2 x10^3/uL (1.0-4.8) Monocytes # (Auto) 0.8 x10^3/uL (0.0-1.1) 0.6 x10^3/uL (0.0-1.1) Eosinophils # (Auto) 0.2 x10^3/uL (0.0-0.7) 0.3 x10^3/uL (0.0-0.7) Basophils # (Auto) 0.0 x10^3/uL (0.0-0.2) 0.0 x10^3/uL (0.0-0.2) Sodium Level 139 mmol/L (136-145) 139 mmol/L (136-145) Potassium Level 3.5 mmol/L (3.5-5.1) 4.0 mmol/L (3.5-5.1) Chloride Level 102 mmol/L (98-107) 105 mmol/L (98-107) Carbon Dioxide Level 26 mmol/L (21-32) 25 mmol/L (21-32) Anion Gap 11 (6-14) 9 (6-14) Blood Urea Nitrogen 10 mg/dL (7-20) 9 mg/dL (7-20) Creatinine 0.5 mg/dL (0.6-1.0) 0.7 mg/dL (0.6-1.0) Estimated GFR (Cockcroft-Gault) 125.4 85.1 Glucose Level 90 mg/dL (70-99) 86 mg/dL (70-99) Calcium Level 9.1 mg/dL (8.5-10.1) 8.4 mg/dL (8.5-10.1) Total Bilirubin 0.3 mg/dL (0.2-1.0) Direct Bilirubin 0.1 mg/dL (0.0-0.2) Aspartate Amino Transf (AST/SGOT) 19 U/L (15-37) Alanine Aminotransferase (ALT/SGPT) 17 U/L (14-59) Alkaline Phosphatase 70 U/L (46-116) Total Protein 6.5 g/dL (6.4-8.2) Albumin 2.8 g/dL (3.4-5.0) Lipase 73 U/L (73-393) Segmented Neutrophils % 19 % (35-66) Band Neutrophils % 5 % (0-9) Lymphocytes % 56 % (24-48) Atypical Lymphocytes % (Manual) 3 % (0-0) Monocytes % 11 % (0-10) Eosinophils % 6 % (0-5) Platelet Estimate Adequate (ADEQUATE) Anisocytosis Slight Tear Drop Cells Occ Ovalocytes Few Problem List Problems Medical Problems: (1) Abdominal pain Status: Acute (2) Colon cancer Status: Acute Assessment/Plan ileus, improved no new surg recs CHAD ANDERSON MD Feb 01, 2019 09:42
[2019-02-01] MEDS: HYDROmorphone 2 MG/ML VIAL IVP PRN (09:44)
[2019-02-01] MEDS ORDERED: DICY10CA3 PO (10:27)
--- NOTE | 2019-02-01 10:30 | PDOC3 ---
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 Smoker Chronic diarrhea, hx 1 foot colon resection Final Diagnosis Problems Medical Problems: (1) Abdominal pain Status: Acute (2) Colon cancer Status: Acute Brief Hospital Course Allergies Allergies Coded Allergies Type Severity Reaction Last Updated Verified codeine Allergy Intermediate 01/31/19 Yes sulfamethoxazole Adverse Reaction Intermediate GI UPSET 03/01/17 Yes trimethoprim Adverse Reaction Intermediate GI UPSET 03/01/17 Yes Vital Signs Vital Signs Date Time Temp Pulse Resp B/P (MAP) Pulse Ox O2 Delivery O2 Flow Rate FiO2 02/01/19 09:44 Room Air 02/01/19 09:27 50 145/55 02/01/19 07:00 98.1 17 95 98.1 Lab Results Laboratory Tests Test 01/30/19 11:20 01/31/19 07:20 White Blood Count 4.6 x10^3/uL (4.0-11.0) 4.0 x10^3/uL (4.0-11.0) Red Blood Count 3.55 x10^6/uL (3.50-5.40) 3.26 x10^6/uL (3.50-5.40) Hemoglobin 11.2 g/dL (12.0-15.5) 10.3 g/dL (12.0-15.5) Hematocrit 33.7 % (36.0-47.0) 31.6 % (36.0-47.0) Mean Corpuscular Volume 95 fL (79-100) 97 fL (79-100) Mean Corpuscular Hemoglobin 32 pg (25-35) 32 pg (25-35) Mean Corpuscular Hemoglobin Concent 33 g/dL (31-37) 33 g/dL (31-37) Red Cell Distribution Width 16.3 % (11.5-14.5) 16.7 % (11.5-14.5) Platelet Count 289 x10^3/uL (140-400) 260 x10^3/uL (140-400) Neutrophils (%) (Auto) 28 % (31-73) 20 % (31-73) Lymphocytes (%) (Auto) 49 % (24-48) 56 % (24-48) Monocytes (%) (Auto) 18 % (0-9) 15 % (0-9) Eosinophils (%) (Auto) 5 % (0-3) 8 % (0-3) Basophils (%) (Auto) 1 % (0-3) 1 % (0-3) Neutrophils # (Auto) 1.3 x10^3uL (1.8-7.7) 0.8 x10^3uL (1.8-7.7) Lymphocytes # (Auto) 2.2 x10^3/uL (1.0-4.8) 2.2 x10^3/uL (1.0-4.8) Monocytes # (Auto) 0.8 x10^3/uL (0.0-1.1) 0.6 x10^3/uL (0.0-1.1) Eosinophils # (Auto) 0.2 x10^3/uL (0.0-0.7) 0.3 x10^3/uL (0.0-0.7) Basophils # (Auto) 0.0 x10^3/uL (0.0-0.2) 0.0 x10^3/uL (0.0-0.2) Sodium Level 139 mmol/L (136-145) 139 mmol/L (136-145) Potassium Level 3.5 mmol/L (3.5-5.1) 4.0 mmol/L (3.5-5.1) Chloride Level 102 mmol/L (98-107) 105 mmol/L (98-107) Carbon Dioxide Level 26 mmol/L (21-32) 25 mmol/L (21-32) Anion Gap 11 (6-14) 9 (6-14) Blood Urea Nitrogen 10 mg/dL (7-20) 9 mg/dL (7-20) Creatinine 0.5 mg/dL (0.6-1.0) 0.7 mg/dL (0.6-1.0) Estimated GFR (Cockcroft-Gault) 125.4 85.1 Glucose Level 90 mg/dL (70-99) 86 mg/dL (70-99) Calcium Level 9.1 mg/dL (8.5-10.1) 8.4 mg/dL (8.5-10.1) Total Bilirubin 0.3 mg/dL (0.2-1.0) Direct Bilirubin 0.1 mg/dL (0.0-0.2) Aspartate Amino Transf (AST/SGOT) 19 U/L (15-37) Alanine Aminotransferase (ALT/SGPT) 17 U/L (14-59) Alkaline Phosphatase 70 U/L (46-116) Total Protein 6.5 g/dL (6.4-8.2) Albumin 2.8 g/dL (3.4-5.0) Lipase 73 U/L (73-393) Segmented Neutrophils % 19 % (35-66) Band Neutrophils % 5 % (0-9) Lymphocytes % 56 % (24-48) Atypical Lymphocytes % (Manual) 3 % (0-0) Monocytes % 11 % (0-10) Eosinophils % 6 % (0-5) Platelet Estimate Adequate (ADEQUATE) Anisocytosis Slight Tear Drop Cells Occ Ovalocytes Few Brief Hospital Course Ms. Montemayor is a 63 old white female who has history of colon cancer stage IV on chemotherapy by Dr. Corona - this is her second readmission for ileus., SBO or Ambridge syndrome. She would get better with conservative management in around 2 day span. GI consulted. This time and new change was additional bentyl which worked wonders for her. Able to tolerate a diet, passing gas, ambulatory. 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 NEw Medication Bentyl 20 mg 4 times a day when necessary I have provided Rx Consults performed [facility] Procedures performed none dc < 30 Discharge Information Condition at Discharge: Improved, Stable Follow Up: Weeks (pcp as scheduled) Disposition/Orders: D/C to Home Scheduled Apixaban (Eliquis) 5 Mg Tablet, 5 MG PO BID for anticoag, (Reported) Entered as Reported by: RICCI COFFMAN on 01/27/19 1006 Last Action: Continued on 01/31/19 113 by VERONICA DUARTE MD Levothyroxine Sodium (Levothyroxine Sodium) 50 Mcg Tablet, 1 TAB PO DAILY, #30 Ref 5 (Reported) Entered as Reported by: JALEN SIERRA on 12/08/14 1025 Last Action: Converted on 01/31/19 1130 by VERONICA DUARTE MD Lisinopril/Hydrochlorothiazide (Lisinopril-Hctz 20-25 Mg Tab) 1 Each Tablet, 1 TAB PO DAILY, #30 (Reported) Entered as Reported by: AIXA GRULLON on 04/27/17 1555 Last Action: Converted on 01/31/19 1130 by VERONICA DUARTE MD Zolpidem Tartrate (Ambien) 5 Mg Tablet, 1 TAB PO QHS, #30 Ref 2 (Reported) Entered as Reported by: RENATA EMERY on 01/25/17 1648 Last Action: Continued on 01/31/191129 by VERONICA DUARTE MD Scheduled PRN Dicyclomine Hcl (Dicyclomine Hcl) 10 Mg Capsule, 20 MG PO PRN Q6HRS PRN for MODERATE PAIN - abdominal MDD 1, #90 Ref 1 Prescribed by: KARL GONZALEZ on 02/01/19 1027 KARL GONZALEZ MD Feb 01, 2019 10:29
[2019-02-01 11:00] VITALS: BP 154/65
[2019-02-01] MEDS ORDERED: HEPARIN PF 500 UNIT/5 ML DISP.SYRIN. IV ONE (11:00)
--- NOTE | 2019-02-01 13:05 | NUR ---
Pt was given dc packet. Rx given for fent 12mcg patch an dicyclomine 20mg. Pt is to f/u with md as needed. No questions asked. Pt ambulated to main entrance at 1250 by this nurse.
== END 2019-02-01 11:49 | disposition home or self-care (01) | DRG 389 ==
LOC: ER 10:48 → 4 NORTH 15:38
PROVIDERS: ADMIT Internal Medicine; ATTEND Internal Medicine
DX: K56.600 Partial intestinal obstruction, unspecified as to cause (principal); C18.9 Malignant neoplasm of colon, unspecified; C80.0 Disseminated malignant neoplasm, unspecified; I10 Essential (primary) hypertension; E87.5 Hyperkalemia; F17.210 Nicotine dependence, cigarettes, uncomplicated; G47.00 Insomnia, unspecified; E89.0 Postprocedural hypothyroidism; Z85.6 Personal history of leukemia; Z90.711 Acquired absence of uterus with remaining cervical stump; Z90.49 Acquired absence of other specified parts of digestive tract
CPT/HCPCS: 36415; 74177; 80048; 80076; 83690; 85007; 85025; 96374; C9113; J1170; J1650; J2405; J7030; J7042; Q9967; 99285-25

== ENCOUNTER 2019-02-25 16:05 | Emergency (ER) | payer OTHER ==
[~2019-02-25] VITALS: Ht 172.7 cm; Wt 64.9 kg
[~2019-02-25 16:05] MED LIST changes: +DICY10CA3 PO
[2019-02-25] MEDS ORDERED: HYDROmorphone 2 MG/ML VIAL IV ONE ×2 (16:30→18:15)
[2019-02-25] MEDS ORDERED: IV NORMAL SALINE 1000ML BAG 1,000 ML IV ONE (16:30)
[2019-02-25] MEDS ORDERED: ONDANSETRON PF 4 MG/2 ML VIAL. IV ONE (16:30)
[2019-02-25 16:36] LABS: BILIRUBIN,URINE NEGATIVE (NEG); CLARITY,URINE CLEAR; COLOR,URINE YELLOW; NITRITE,URINE NEGATIVE (NEG); PH,URINE 5.5; PROTEIN,URINE 30 mg/dL (NEG-TRACE)
[2019-02-25 16:40] VITALS: BP 140/82
[2019-02-25 16:41] LABS: SQUAMOUS EPITHELIAL CELL,UR FEW /LPF
[2019-02-25 16:42] LABS: BACTERIA,URINE FEW /HPF (0-FEW); RBC,URINE 0 /HPF (0-2); WBC,URINE 20-40 /HPF (0-4)
[2019-02-25 16:43] LABS: HYALINE CASTS, URINE FEW /HPF
[2019-02-25 16:47] LABS: BASO # 0.1 x10^3/uL (0.0-0.2); BASO % 1 % (0-3); EOS # 0.3 x10^3/uL (0.0-0.7); EOS % 4 % (0-3); HEMATOCRIT 37.4 % (36.0-47.0); HEMOGLOBIN 12.4 g/dL (12.0-15.5); LYMPH # 3.9 x10^3/uL (1.0-4.8); LYMPH % 64 % (24-48); MEAN CORPUSCULAR HEMOGLOBIN 31 pg (25-35); MEAN CORPUSCULAR HGB CONC 33 g/dL (31-37); MEAN CORPUSCULAR VOLUME 95 fL (79-100); MONO # 0.3 x10^3/uL (0.0-1.1); MONO % 5 % (0-9); NEUT # 1.6 x10^3uL (1.8-7.7); NEUT % 26 % (31-73); PLATELET COUNT 341 x10^3/uL (140-400); RED BLOOD COUNT 3.96 x10^6/uL (3.50-5.40); RED CELL DISTRIBUTION WIDTH 17.3 % (11.5-14.5); WHITE BLOOD COUNT 6.2 x10^3/uL (4.0-11.0)
[2019-02-25] MEDS ORDERED: cefTRIAXone IV Push 1 GM VIAL. IVP ONE (17:15)
[2019-02-25 17:33] LABS: ALBUMIN 3.4 g/dL (3.4-5.0); ALBUMIN/GLOBULIN RATIO 1.1 (1.0-1.7); CALCIUM 9.2 mg/dL (8.5-10.1); CREATININE 0.9 mg/dL (0.6-1.0); GFR 63.7; TOTAL BILIRUBIN 0.3 mg/dL (0.2-1.0); TOTAL PROTEIN 6.5 g/dL (6.4-8.2)
--- NOTE | 2019-02-25 18:24 | PHYS DOC ---
Past Medical History Past Medical History: Cancer, Hypertension, Hypothyroid, Other Additional Past Medical Histor: ACUTE MYELOID LEUKEMIA (2008) W/ REMISSION, ST 4 COLON CA (2017) Past Surgical History: Appendectomy, Cholecystectomy, Hysterectomy, Tonsillectomy, Other Additional Past Surgical Histo: PARTIAL THYROIDECTOMY Alcohol Use: None Drug Use: None Adult General Chief Complaint Chief Complaint: ABDOMINAL PAIN HPI HPI Patient is a 63 year old female with history of hypertension, hypothyroidism, colon cancer currently on chemotherapy last treatment last week who presents to the ED today complaining of 6 out of 10 periumbilical abdominal pain, dysuria, no back pain, symptoms began yesterday. Patient denies any nausea vomiting. She states she believes she has a UTI. Denies any fever. She describes the pain as intermittent and throbbing. Denies anything specific exacerbating or relieving the pain. Patient states she believes she has urinary tract infection because she has had similar symptoms with UTI. Review of Systems Review of Systems Constitutional: Denies fever or chills [] Eyes: Denies change in visual acuity, redness, or eye pain [] HENT: Denies nasal congestion or sore throat [] Respiratory: Denies cough or shortness of breath [] Cardiovascular: No additional information not addressed in HPI [] GI: Reports periumbilical abdominal pain, denies nausea, vomiting, bloody stools or diarrhea [] : Reports dysuria, denies hematuria [] Musculoskeletal: Reports low back pain, denies joint pain [] Integument: Denies rash or skin lesions [] Neurologic: Denies headache, focal weakness or sensory changes [] All other systems were reviewed and found to be within normal limits, except as documented in this note. Current Medications Current Medications Current Medications Medications (Trade) Dose Ordered Sig/Nneka Start Time Stop Time Status Last Admin Dose Admin Ceftriaxone Sodium (Rocephin) 1 gm 1X ONCE 02/25/19 17:15 02/25/19 17:17 DC 02/25/19 17:52 1 GM Hydromorphone HCl (Dilaudid) 1 mg 1X ONCE 02/25/19 18:15 02/25/19 18:16 DC 02/25/19 18:17 1 MG Ondansetron HCl (Zofran) 4 mg 1X ONCE 02/25/19 16:30 02/25/19 16:34 DC 02/25/19 17:16 4 MG Sodium Chloride 1,000 ml @ 1,000 mls/hr 1X ONCE 02/25/19 16:30 02/25/19 17:29 DC 02/25/19 17:13 1,000 MLS/HR Allergies Allergies Allergies Coded Allergies Type Severity Reaction Last Updated Verified codeine Allergy Intermediate 01/31/19 Yes sulfamethoxazole Adverse Reaction Intermediate GI UPSET 03/01/17 Yes trimethoprim Adverse Reaction Intermediate GI UPSET 03/01/17 Yes Physical Exam Physical Exam Constitutional: Well developed, well nourished, no acute distress, non-toxic appearance. [] HENT: Normocephalic, atraumatic, bilateral external ears normal, oropharynx moist, no oral exudates, nose normal. [] Eyes: PERRLA, EOMI, conjunctiva normal, no discharge. [] Neck: Normal range of motion, no tenderness, supple, no stridor. [] Cardiovascular:Heart rate regular rhythm, no murmur [] Lungs & Thorax: Bilateral breath sounds clear to auscultation [] Abdomen: Bowel sounds normal, soft, no tenderness, no masses, no pulsatile masses. [] Skin: Warm, dry, no erythema, no rash. [] Back: No tenderness, no CVA tenderness. [] Extremities: No tenderness, no cyanosis, no clubbing, ROM intact, no edema. [] Neurologic: Alert and oriented X 3, normal motor function, normal sensory function, no focal deficits noted. [] Psychologic: Affect normal, judgement normal, mood normal. [] Current Patient Data Vital Signs Vital Signs Date Time Temp Pulse Resp B/P (MAP) Pulse Ox O2 Delivery O2 Flow Rate FiO2 02/25/19 16:40 97.8 66 22 140/82 (101) 100 Room Air 97.8 Lab Values Laboratory Tests Test 02/25/19 16:24 02/25/19 16:40 02/25/19 17:10 Urine Collection Type Unknown Urine Color Yellow Urine Clarity Clear Urine pH 5.5 Urine Specific [place] 1.025 Urine Protein 30 mg/dL (NEG-TRACE) Urine Glucose (UA) Negative mg/dL (NEG) Urine Ketones (Stick) Negative mg/dL (NEG) Urine Blood Negative (NEG) Urine Nitrite Negative (NEG) Urine Bilirubin Negative (NEG) Urine Urobilinogen Dipstick 1.0 mg/dL (0.2 mg/dL) Urine Leukocyte Esterase Moderate (NEG) Urine RBC 0 /HPF (0-2) Urine WBC 20-40 /HPF (0-4) Urine Squamous Epithelial Cells Few /LPF Urine Bacteria Few /HPF (0-FEW) Urine Hyaline Casts Few /HPF Urine Mucus Mod /LPF White Blood Count 6.2 x10^3/uL (4.0-11.0) Red Blood Count 3.96 x10^6/uL (3.50-5.40) Hemoglobin 12.4 g/dL (12.0-15.5) Hematocrit 37.4 % (36.0-47.0) Mean Corpuscular Volume 95 fL (79-100) Mean Corpuscular Hemoglobin 31 pg (25-35) Mean Corpuscular Hemoglobin Concent 33 g/dL (31-37) Red Cell Distribution Width 17.3 % (11.5-14.5) H Platelet Count 341 x10^3/uL (140-400) Neutrophils (%) (Auto) 26 % (31-73) L Lymphocytes (%) (Auto) 64 % (24-48) H Monocytes (%) (Auto) 5 % (0-9) Eosinophils (%) (Auto) 4 % (0-3) H Basophils (%) (Auto) 1 % (0-3) Neutrophils # (Auto) 1.6 x10^3uL (1.8-7.7) L Lymphocytes # (Auto) 3.9 x10^3/uL (1.0-4.8) Monocytes # (Auto) 0.3 x10^3/uL (0.0-1.1) Eosinophils # (Auto) 0.3 x10^3/uL (0.0-0.7) Basophils # (Auto) 0.1 x10^3/uL (0.0-0.2) Sodium Level 138 mmol/L (136-145) Potassium Level 3.0 mmol/L (3.5-5.1) L Chloride Level 99 mmol/L (98-107) Carbon Dioxide Level 29 mmol/L (21-32) Anion Gap 10 (6-14) Blood Urea Nitrogen 24 mg/dL (7-20) H Creatinine 0.9 mg/dL (0.6-1.0) Estimated GFR (Cockcroft-Gault) 63.7 BUN/Creatinine Ratio 27 (6-20) H Glucose Level 110 mg/dL (70-99) H Calcium Level 9.2 mg/dL (8.5-10.1) Total Bilirubin 0.3 mg/dL (0.2-1.0) Aspartate Amino Transferase (AST) 15 U/L (15-37) Alanine Aminotransferase (ALT) 28 U/L (14-59) Alkaline Phosphatase 60 U/L (46-116) Total Protein 6.5 g/dL (6.4-8.2) Albumin 3.4 g/dL (3.4-5.0) Albumin/Globulin Ratio 1.1 (1.0-1.7) Laboratory Tests 02/25/19 16:40 Laboratory Tests 02/25/19 17:10 EKG EKG [] Radiology/Procedures Radiology/Procedures [] Course & Med Decision Making Course & Med Decision Making Pertinent Labs and Imaging studies reviewed. (See chart for details) This is a 63-year-old female patient who presents to the ED today complaining of periumbilical abdominal pain, dysuria, no back pain, symptoms began yesterday. CBC with a normal WBC, CMP with potassium of 3.0, patient was given oral potassium replacement. Urine analysis is noted for moderate amount of leukocytes. Patient was started on Rocephin in the ED and discharged with cephalexin. Patient's vitals are stable. She is afebrile. Instructed to continue following up with her own PCP as well as patient list in the course of this week or next week. Provided return precautions and discharged in stable condition. Dragon Disclaimer Dragon Disclaimer This electronic medical record was generated, in whole or in part, using a voice recognition dictation system. Departure Departure Impression: Primary Impression: Urinary tract infection Disposition: 01 HOME, SELF-CARE Condition: STABLE Referrals: ZEHRA SMITH (PCP) Follow-up in the next 7 days Patient Instructions: Urinary Tract Infection Additional Instructions: You were evaluated in the emergency room and noted to have urinary tract infection. We put you on antibiotics, ensure you complete them. Continue following up with the specialist. Push fluids. Come back to the ED at any point symptoms worsen. Scripts Cephalexin (CEPHALEXIN) 500 Mg Tablet 1 TAB PO BID, #14 TAB Prov: JANNETTE MEDINA APRN 02/25/19 Problem Qualifiers Primary Impression: Urinary tract infection Urinary tract infection type: site unspecified Hematuria presence: without hematuria Qualified Codes: N39.0 - Urinary tract infection, site not specified JANNETTE MEDINA PERFORMING ARTIST February 25, 2019 18:24
[2019-02-25] MEDS ORDERED: CEPH500T PO (18:30)
[2019-02-25] MEDS ORDERED: POTASSIUM CHLORIDE 20 MEQ TABLET.ER. PO ONE (18:30)
== END 2019-02-25 19:05 | disposition home or self-care (01) ==
LOC: ER 16:05
DX: N39.0 Urinary tract infection, site not specified (principal); E03.9 Hypothyroidism, unspecified; I10 Essential (primary) hypertension; Z90.49 Acquired absence of other specified parts of digestive tract; Z90.89 Acquired absence of other organs; Z90.710 Acquired absence of both cervix and uterus; Z88.1 Allergy status to other antibiotic agents; Z88.2 Allergy status to sulfonamides; Z88.5 Allergy status to narcotic agent
CPT/HCPCS: 36415; 80053; 81001; 85025; 87086; 96374; 96375; 96376; 99284; J0696; J1170; J2405; J7030; 87186

== ENCOUNTER → 2019-04-21 | Outpatient (CLI) | payer MEDICARE, MEDICAID ==
[~2019-04-21] MED LIST changes: +CEPH500T PO; +IOHEXOL 240 MG/ML 50ML VIAL. PO ONE; +IOHEXOL 300 MG/ML 100ML VIAL. IV ONE; -PANT40TA3 PO; -PANT40TA5 PO; +PANT40TA77 PO
--- NOTE | 2019-04-21 16:34 | RAD ---
Examination: CT CHEST ABD PELVIS W/CONTRAST History: Malignant neoplasm of the transverse colon Comparison/Correlation: 01/30/2019 CT abdomen and pelvis with contrast, 12/05/2018 CT chest abdomen and pelvis with Findings: Axial images of chest, abdomen, and pelvis were obtained following IV and oral contrast demonstration. Right sided infusion port catheter terminus within the superior vena cava. Large left thyroid cystic structure is unchanged. It is only partially seen on this exam. Pulmonary arterial vasculature is normal with no thromboembolic disease. Centrilobular emphysema noted. No pulmonary nodule or mass. No infiltrate or pleural effusion. Minimal groundglass interstitial thickening at the left mid thoracic level laterally at the basilar aspect is unchanged. No focal consolidation. No pulmonary nodule or mass in the interval. No enlarged thoracic lymph nodes. Small loculated pericardial effusion is unchanged. Small hiatal hernia is present. Few punctate noncalcified nodules involve the anterior aspect of the left lung on axial image 29 and this is similar compared previous exam. Few other punctate densities are present involving the right upper lung field anteriorly and are unchanged. No suspicious pulmonary nodule. Minimal ascites noted. Liver is unremarkable. Cholecystectomy noted. Spleen is unremarkable. Pancreas is normal. Marked calcification of the abdominal aorta and iliac arteries noted. Calcification of upper abdominal arterial vasculature noted. Liver, spleen, pancreas, adrenal glands, and left kidney are unremarkable. Right renal lower pole nonobstructive calyceal calculus again seen. No enlarged abdominal or pelvic lymph nodes. No extraluminal gas. Cholecystectomy noted. Suture material involving the mid abdomen noted associated with the distended loop of small bowel best seen on axial image 31 of series 4. Stricture of small bowel distal to the site of distention is noted. Suture material about the proximal colon noted. Proximal hemicolon colectomy is noted with the ileocolic anastomosis in the left or quadrant. Anterior abdominal wall masslike thickening is again seen at the right upper pelvic level without significant change. Omental thickening of the abdominal midline about the umbilical and supraumbilical level is similar to previous. No enlarged abdominal or pelvic lymph nodes. No acute bony process. Impression: No new pulmonary nodule or infiltrate. No significant change. Nonobstructive right renal calyceal calculus. No new abdominal or pelvic mass. Minimal ascites is slightly increased interval. Distention of small bowel is identified but improved compared previous exam and may be postoperative. There is a strictured loop of small bowel just distal to suture material present at the upper pelvic midline level. No definite obstruction. Correlate clinically in determining further assessment. PQRS Compliance Statement: One or more of the following individualized dose reduction techniques were utilized for this examination: 1. Automated exposure control 2. Adjustment of the mA and/or kV according to patient size 3. Use of iterative reconstruction technique Electronically signed by: Nato Bucio MD (04/21/2019 4:31 PM) [facility]
== END | disposition home or self-care (01) ==
LOC: CT 11:57
PROVIDERS: ATTEND Internal Medicine Hematology & Oncology
DX: N20.0 Calculus of kidney (principal); J43.2 Centrilobular emphysema; I31.3 Pericardial effusion (noninflammatory); C18.4 Malignant neoplasm of transverse colon; K44.9 Diaphragmatic hernia without obstruction or gangrene; R91.8 Other nonspecific abnormal finding of lung field; I70.0 Atherosclerosis of aorta; R18.8 Other ascites; I12.9 Hypertensive chronic kidney disease with stage 1 through stage 4 chronic kidney disease, or unspecified chronic kidney disease; E11.22 Type 2 diabetes mellitus with diabetic chronic kidney disease; N18.4 Chronic kidney disease, stage 4 (severe); F17.200 Nicotine dependence, unspecified, uncomplicated; Z95.0 Presence of cardiac pacemaker; Z90.49 Acquired absence of other specified parts of digestive tract; Z79.01 Long term (current) use of anticoagulants
CPT/HCPCS: 71260; 74177; Q9966; Q9967

== ENCOUNTER 2019-06-27 19:56 | Emergency (ER) | payer MEDICARE, MEDICAID ==
[~2019-06-27] VITALS: Ht 162.6 cm; Wt 57.2 kg
[~2019-06-27 19:56] MED LIST changes: -IOHEXOL 240 MG/ML 50ML VIAL. PO ONE; -IOHEXOL 300 MG/ML 100ML VIAL. IV ONE; +LISI1TAB20 PO; -LISI1TAB7 PO
[2019-06-27 21:18] LABS: BILIRUBIN,URINE NEGATIVE (NEG); CLARITY,URINE CLEAR; COLOR,URINE YELLOW; NITRITE,URINE NEGATIVE (NEG); PH,URINE 5.5; PROTEIN,URINE 30 mg/dL (NEG-TRACE); UROBILINOGEN,URINE 0.2 mg/dL (0.2 mg/dL)
[2019-06-27 21:18] LABS: BASO # 0.1 x10^3/uL (0.0-0.2); BASO % 1 % (0-3); EOS # 0.2 x10^3/uL (0.0-0.7); EOS % 2 % (0-3); HEMATOCRIT 35.6 % (36.0-47.0); HEMOGLOBIN 12.2 g/dL (12.0-15.5); LYMPH # 3.8 x10^3/uL (1.0-4.8); LYMPH % 39 % (24-48); MEAN CORPUSCULAR HEMOGLOBIN 35 pg (25-35); MEAN CORPUSCULAR HGB CONC 34 g/dL (31-37); MEAN CORPUSCULAR VOLUME 101 fL (79-100); MONO # 0.1 x10^3/uL (0.0-1.1); MONO % 1 % (0-9); NEUT # 5.4 x10^3/uL (1.8-7.7); NEUT % 57 % (31-73); PLATELET COUNT 354 x10^3/uL (140-400); RED BLOOD COUNT 3.51 x10^6/uL (3.50-5.40); RED CELL DISTRIBUTION WIDTH 15.7 % (11.5-14.5); WHITE BLOOD COUNT 9.6 x10^3/uL (4.0-11.0)
[2019-06-27 21:27] LABS: BACTERIA,URINE MODERATE /HPF (0-FEW); RBC,URINE OCC /HPF (0-2); SQUAMOUS EPITHELIAL CELL,UR MOD /LPF
[2019-06-27] MEDS ORDERED: IV NORMAL SALINE 1000ML BAG 1,000 ML IV ONE (21:30)
[2019-06-27] MEDS ORDERED: MORPHINE SULFATE 2 MG/ML VIAL. IV ONE (21:30)
[2019-06-27] MEDS ORDERED: ONDANSETRON PF 4 MG/2 ML VIAL. IV ONE (21:30)
[2019-06-27 21:43] LABS: ALBUMIN 3.2 g/dL (3.4-5.0); ALBUMIN/GLOBULIN RATIO 1.1 (1.0-1.7); CALCIUM 8.5 mg/dL (8.5-10.1); CREATININE 0.8 mg/dL (0.6-1.0); GFR 72.9; TOTAL BILIRUBIN 0.6 mg/dL (0.2-1.0); TOTAL PROTEIN 6.2 g/dL (6.4-8.2)
--- NOTE | 2019-06-27 21:43 | RAD ---
AP portable chest radiograph 06/27/2019 Clinical History: Shortness of breath. Chemotherapy patient. An AP erect portable digital radiograph of the chest was obtained. Comparison study is dated 11/01/2018. A right internal jugular [id number] type catheter is unchanged in position. The cardiac silhouette is normal in size. The thoracic aorta is tortuous. Atherosclerotic calcification of the thoracic aorta is seen. No acute pulmonary infiltrate is seen. No pleural effusion or pneumothorax is noted. The osseous structures are unchanged. Impression: No acute abnormality is seen. Electronically signed by: Ash Powell MD (06/27/2019 9:40 PM) [facility]
[2019-06-27 21:48] LABS: POTASSIUM 2.8 mmol/L (3.5-5.1)
[2019-06-27] MEDS ORDERED: POTASSIUM CHLORIDE 20 MEQ TABLET.ER. PO ONE (22:00)
[2019-06-27 22:45] VITALS: BP 148/58
--- NOTE | 2019-06-27 23:14 | PHYS DOC ---
Past Medical History Past Medical History: Cancer, Hypertension, Hypothyroid, Other Additional Past Medical Histor: ACUTE MYELOID LEUKEMIA (2008) W/ REMISSION, ST 4 COLON CA (2017) Past Surgical History: Appendectomy, Cholecystectomy, Hysterectomy, Tonsillectomy, Other Additional Past Surgical Histo: PARTIAL THYROIDECTOMY Alcohol Use: None Drug Use: None Adult General Chief Complaint Chief Complaint: ABDOMINAL PAIN HPI HPI Patient is a 63 year old [female] who presents with [weakness and diarrhea. Patient reports she has been undergoing treatment for stage IV colon cancer for the past 3 years, heard her last chemotherapy treatment couple days ago. States over the last day she just hasn't felt fatigued and weak. States she has an body aching and cramping. States she has not been able to drink any fluids because she has not had an appetite. States she does notice is normal with her cancer treatment. Denies any pain, shortness of breath, other discomfort. Denies any recent fevers, denies any urinary complaints or concerns Review of Systems Review of Systems Constitutional: Denies fever or chills does report general weakness and body aching[] Eyes: Denies change in visual acuity, redness, or eye pain [] HENT: Denies nasal congestion or sore throat [] Respiratory: Denies cough or shortness of breath [] Cardiovascular: No additional information not addressed in HPI [] GI: Denies abdominal pain, nausea, vomiting, bloody stools does report she has had increased diarrhea over the last 2 days reports she normally has diarrhea all the time, but it seems worse today and yesterday[] : Denies dysuria or hematuria [] Musculoskeletal: Denies back pain or joint pain [] Integument: Denies rash or skin lesions [] Neurologic: Denies headache, focal weakness or sensory changes [] Endocrine: Denies polyuria or polydipsia [] All other systems were reviewed and found to be within normal limits, except as documented in this note. Current Medications Current Medications Current Medications Medications (Trade) Dose Ordered Sig/Nneka Start Time Stop Time Status Last Admin Dose Admin Morphine Sulfate (Morphine Sulfate) 2 mg 1X ONCE 06/27/19 21:30 06/27/19 21:31 DC 06/27/19 21:35 2 MG Ondansetron HCl (Zofran) 4 mg 1X ONCE 06/27/19 21:30 06/27/19 21:31 DC 06/27/19 21:35 4 MG Potassium Chloride (Klor-Con) 40 meq 1X ONCE 06/27/19 22:00 06/27/19 22:01 DC 06/27/19 22:08 40 MEQ Sodium Chloride 1,000 ml @ 1,000 mls/hr 1X ONCE 06/27/19 21:30 06/27/19 22:29 DC 06/27/19 21:35 1,000 MLS/HR Allergies Allergies Allergies Coded Allergies Type Severity Reaction Last Updated Verified codeine Allergy Intermediate 01/31/19 Yes sulfamethoxazole Adverse Reaction Intermediate GI UPSET 03/01/17 Yes trimethoprim Adverse Reaction Intermediate GI UPSET 03/01/17 Yes Physical Exam Physical Exam Constitutional: Well developed, well nourished, no acute distress, non-toxic appearance. [] HENT: Normocephalic, atraumatic, bilateral external ears normal, oropharynx moist, no oral exudates, nose normal. [] Eyes: PERRLA, EOMI, conjunctiva normal, no discharge. [] Neck: Normal range of motion, no tenderness, supple, no stridor. [] Cardiovascular:Heart rate regular rhythm, no murmur [] Lungs & Thorax: Bilateral breath sounds clear to auscultation [] Abdomen: Bowel sounds normal, soft, no tenderness, no masses, no pulsatile masses. Bowel sounds active[] Skin: Warm, dry, no erythema, no rash. [] Back: No tenderness, no CVA tenderness. [] Extremities: No tenderness, no cyanosis, no clubbing, ROM intact, no edema. [] Neurologic: Alert and oriented X 3, normal motor function, normal sensory function, no focal deficits noted. [] Psychologic: Affect normal, judgement normal, mood normal. [] Current Patient Data Vital Signs Vital Signs Date Time Temp Pulse Resp B/P (MAP) Pulse Ox O2 Delivery O2 Flow Rate FiO2 06/27/19 22:07 54 22 122/67 (85) 100 Room Air 06/27/19 20:20 97.9 97.9 Lab Values Laboratory Tests Test 06/27/19 20:30 06/27/19 21:00 Urine Collection Type Unknown Urine Color Yellow Urine Clarity Clear Urine pH 5.5 Urine Specific [place] 1.020 Urine Protein 30 mg/dL (NEG-TRACE) Urine Glucose (UA) Negative mg/dL (NEG) Urine Ketones (Stick) Negative mg/dL (NEG) Urine Blood Negative (NEG) Urine Nitrite Negative (NEG) Urine Bilirubin Negative (NEG) Urine Urobilinogen Dipstick 0.2 mg/dL (0.2 mg/dL) Urine Leukocyte Esterase Small (NEG) Urine RBC Occ /HPF (0-2) Urine WBC 5-10 /HPF (0-4) Urine Squamous Epithelial Cells Mod /LPF Urine Bacteria Moderate /HPF (0-FEW) White Blood Count 9.6 x10^3/uL (4.0-11.0) Red Blood Count 3.51 x10^6/uL (3.50-5.40) Hemoglobin 12.2 g/dL (12.0-15.5) Hematocrit 35.6 % (36.0-47.0) L Mean Corpuscular Volume 101 fL (79-100) H Mean Corpuscular Hemoglobin 35 pg (25-35) Mean Corpuscular Hemoglobin Concent 34 g/dL (31-37) Red Cell Distribution Width 15.7 % (11.5-14.5) H Platelet Count 354 x10^3/uL (140-400) Neutrophils (%) (Auto) 57 % (31-73) Lymphocytes (%) (Auto) 39 % (24-48) Monocytes (%) (Auto) 1 % (0-9) Eosinophils (%) (Auto) 2 % (0-3) Basophils (%) (Auto) 1 % (0-3) Neutrophils # (Auto) 5.4 x10^3/uL (1.8-7.7) Lymphocytes # (Auto) 3.8 x10^3/uL (1.0-4.8) Monocytes # (Auto) 0.1 x10^3/uL (0.0-1.1) Eosinophils # (Auto) 0.2 x10^3/uL (0.0-0.7) Basophils # (Auto) 0.1 x10^3/uL (0.0-0.2) Sodium Level 139 mmol/L (136-145) Potassium Level 2.8 mmol/L (3.5-5.1) *L Chloride Level 103 mmol/L (98-107) Carbon Dioxide Level 28 mmol/L (21-32) Anion Gap 8 (6-14) Blood Urea Nitrogen 33 mg/dL (7-20) H Creatinine 0.8 mg/dL (0.6-1.0) Estimated GFR (Cockcroft-Gault) 72.9 BUN/Creatinine Ratio 41 (6-20) H Glucose Level 78 mg/dL (70-99) Lactic Acid Level 1.0 mmol/L (0.4-2.0) Calcium Level 8.5 mg/dL (8.5-10.1) Total Bilirubin 0.6 mg/dL (0.2-1.0) Aspartate Amino Transferase (AST) 16 U/L (15-37) Alanine Aminotransferase (ALT) 33 U/L (14-59) Alkaline Phosphatase 71 U/L (46-116) Troponin I Quantitative < 0.017 ng/mL (0.000-0.055) Total Protein 6.2 g/dL (6.4-8.2) L Albumin 3.2 g/dL (3.4-5.0) L Albumin/Globulin Ratio 1.1 (1.0-1.7) Laboratory Tests 06/27/19 21:00 Laboratory Tests 06/27/19 21:00 EKG EKG Sinus rhythm with PACs. No ST KRISTEN. Per Dr. Mercer at 2041[] Radiology/Procedures Radiology/Procedures A right internal jugular [id number] type catheter is unchanged in position. The cardiac silhouette is normal in size. The thoracic aorta is tortuous. Atherosclerotic calcification of the thoracic aorta is seen. No acute pulmonary infiltrate is seen. No pleural effusion or pneumothorax is noted. The osseous structures are unchanged. Impression: No acute abnormality is seen. Electronically signed by: Ash Powell MD (06/27/2019 9:40 PM) [facility] Course & Med Decision Making Course & Med Decision Making Pertinent Labs and Imaging studies reviewed. (See chart for details) [ Discussed findings with patient, noting hypokalemia. Patient does report she has a history of hypokalemia, and she does have a prescription for potassium at home which she has taken in the past Following fluid hydration, patient does report she feels a lot better, states she does not want to stay in the hospital, states she would rather go home as she is feeling better. Discussed with patient importance of continuing to take her potassium supplements, and following up with her PCP or her oncologist. His states she will do this, patient with no further cleanser concerned when she feels better and is ready to go home Richard Disclaimer Beatrizon Disclaimer This electronic medical record was generated, in whole or in part, using a voice recognition dictation system. Departure Departure Impression: Primary Impression: Hypokalemia Additional Impressions: Weakness Dehydration Disposition: HOME, SELF-CARE Condition: STABLE Referrals: ZEHRA SMITH (PCP) Patient Instructions: Dehydration, Elderly, Hypokalemia Additional Instructions: As we discussed, continue to take her potassium supplements for the next couple days. Follow-up with your oncologist or primary care provider to recheck her potassium levels on Saturday or Saturday. Try to stay hydrated, drink plenty of water. Keep her next oncology appointment. Keep your appointment with her primary care provider at 145 on Saturday Problem Qualifiers RHIANNA VILLAFANA APRN Jun 27, 2019 23:14
[2019-06-27] MEDS ORDERED: HEPARIN PF 500 UNIT/5 ML DISP.SYRIN. IV ONE ×2 (23:34→23:45)
--- NOTE | 2019-06-29 10:24 | EKG ---
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
== END 2019-06-27 23:46 | disposition home or self-care (01) ==
LOC: ER 19:56
DX: E87.6 Hypokalemia (principal); E86.0 Dehydration; R19.7 Diarrhea, unspecified; R53.1 Weakness; C18.9 Malignant neoplasm of colon, unspecified; I10 Essential (primary) hypertension; E89.0 Postprocedural hypothyroidism; Z90.89 Acquired absence of other organs; Z90.49 Acquired absence of other specified parts of digestive tract; Z90.710 Acquired absence of both cervix and uterus; Z88.5 Allergy status to narcotic agent; Z88.2 Allergy status to sulfonamides; Z88.1 Allergy status to other antibiotic agents
CPT/HCPCS: 36415; 71045; 80053; 81001; 83605; 84484; 85025; 87086; 93005; 96361; 96374; 96375; 99285; J2270; J2405; J7030

== ENCOUNTER → 2019-08-17 | Outpatient (CLI) | payer MEDICARE, MEDICAID ==
[~2019-08-17] MED LIST changes: +CONTRAST GIVEN. MC PRN; +IOHEXOL 240 MG/ML 50ML VIAL. PO ONE; +IOHEXOL 300 MG/ML 100ML VIAL. IV ONE
--- NOTE | 2019-08-18 10:21 | RAD ---
CT CHEST ABD PELVIS W/CONTRAST Indication: Malignant neoplasm of the transverse colon Technique: Postcontrast CT imaging was performed of the chest, abdomen, pelvis, multiplanar reconstruction images submitted. Oral contrast was also given. One or more of the following individualized dose reduction techniques were utilized for this examination: 1. Automated exposure control 2. Adjustment of the mA and/or kV according to patient size 3. Use of iterative reconstruction technique. Comparison: April 21, 2019 Chest Findings: There is again large cystic lesion of the inferior left neck extending to the region of thyroid gland unchanged at least 3.1 cm in axial dimension. There is again right port catheter. There is emphysema. There is no new pleural effusion or pneumothorax. Small quantity pericardial fluid is stable. Tiny 0.2 to 0.3 cm left upper lobe nodule image 25 series 2 is stable. Tiny 0.2 cm subpleural right upper lobe nodule image 10 series 2 is stable. There is no new pulmonary nodularity. There is no new significant lymphadenopathy of the chest. There is scattered plaque of the thoracic aorta. There is coronary calcification. Thoracic aortic caliber is within normal limits. There is multilevel thoracic spondylosis. There is more focal disc osteophyte complex/osteophyte slightly indenting the ventral thecal sac at the T9-10 level. IMPRESSION: 1. There is no new lymphadenopathy or pulmonary nodularity, a couple of tiny pulmonary nodules stable. 2. There is emphysema. 3. There is coronary calcification. 4. Cystic lesion of the inferior left neck/thyroid gland region is stable, not fully included. Abdomen pelvis FINDINGS: Mild free fluid most notable of the perihepatic region is similar, also seen in left upper quadrant as seen previously. There is increased mild free fluid in the pelvis. There is again nodular density at the plane of the right superior pelvic fascia such as seen image 48 series 4 about 2.2 cm AP by 4.6 cm transverse by about 4.2 cm CC, previously about 2 cm AP by 3.8 cm transverse by 3.8 cm CC. There is again degree of omental thickening most notable of the central and right pelvis probably somewhat increased. There is also somewhat nodular appearance in the left upper quadrant along the inferior margin of the hemidiaphragm although component which appears to be due to small loculations of fluid density. There is no free air. There are again postsurgical changes of the bowel. Both kidneys enhance, no hydronephrosis. There is again very small right renal calculus. There is no new adrenal nodularity. No new focal abnormality is identified of the spleen or the liver. There is again relative atrophy of the proximal body of pancreas and visualization of the pancreatic duct as seen previously, also some calcifications near the pancreatic head. There again has been cholecystectomy. There is prominent calcified plaque of the abdominal aorta and iliac arteries, also near the origins of the renal arteries greater on the left. There is also prominent splenic arterial calcification. IMPRESSION: 1.There has been development of mild free fluid in the pelvis. There is minimal free fluid in the abdomen more similar in appearance There is again focus of nodular density along the plane of the fascia of the right superior pelvis somewhat increased, also degree of omental thickening probably somewhat greater. 2. There is again prominent atherosclerotic calcification. Electronically signed by: Candido Martinez MD (08/18/2019 10:18 AM) [id number]
== END | disposition home or self-care (01) ==
LOC: CT 08:12
PROVIDERS: ATTEND Internal Medicine Hematology & Oncology
DX: C18.4 Malignant neoplasm of transverse colon (principal); J43.9 Emphysema, unspecified; I70.0 Atherosclerosis of aorta; I25.10 Atherosclerotic heart disease of native coronary artery without angina pectoris; M47.894 Other spondylosis, thoracic region; M25.78 Osteophyte, vertebrae; R91.8 Other nonspecific abnormal finding of lung field; K86.89 Other specified diseases of pancreas; Z90.49 Acquired absence of other specified parts of digestive tract; Z88.5 Allergy status to narcotic agent; Z88.1 Allergy status to other antibiotic agents
CPT/HCPCS: 71260; 74177; Q9966; Q9967

== ENCOUNTER 2019-09-06 09:01 | Emergency (ER) | payer MEDICARE, MEDICAID ==
[~2019-09-06] VITALS: Ht 162.6 cm; Wt 56.7 kg
[~2019-09-06 09:01] MED LIST changes: -CONTRAST GIVEN. MC PRN; -IOHEXOL 240 MG/ML 50ML VIAL. PO ONE; -IOHEXOL 300 MG/ML 100ML VIAL. IV ONE
[2019-09-06] MEDS ORDERED: IV NORMAL SALINE 1000ML BAG 1,000 ML IV SCH (09:37)
[2019-09-06] MEDS ORDERED: fentaNYL PF VIAL 100 MCG/2 ML VIAL IV ONE (09:45)
[2019-09-06] MEDS ORDERED: ONDANSETRON PF 4 MG/2 ML VIAL. IV ONE (09:45)
[2019-09-06 10:02] LABS: BASO % 1 % (0-3); EOS # 0.1 x10^3/uL (0.0-0.7); EOS % 2 % (0-3); HEMATOCRIT 34.7 % (36.0-47.0); HEMOGLOBIN 11.8 g/dL (12.0-15.5); LYMPH # 2.8 x10^3/uL (1.0-4.8); LYMPH % 38 % (24-48); MEAN CORPUSCULAR HEMOGLOBIN 33 pg (25-35); MEAN CORPUSCULAR HGB CONC 34 g/dL (31-37); MEAN CORPUSCULAR VOLUME 98 fL (79-100); MONO # 0.8 x10^3/uL (0.0-1.1); MONO % 10 % (0-9); NEUT # 3.6 x10^3/uL (1.8-7.7); NEUT % 49 % (31-73); PLATELET COUNT 310 x10^3/uL (140-400); RED BLOOD COUNT 3.56 x10^6/uL (3.50-5.40); RED CELL DISTRIBUTION WIDTH 16.8 % (11.5-14.5); WHITE BLOOD COUNT 7.4 x10^3/uL (4.0-11.0)
[2019-09-06 10:14] LABS: CALCIUM 8.5 mg/dL (8.5-10.1); CREATININE 0.9 mg/dL (0.6-1.0); GFR 63.7; POTASSIUM 3.6 mmol/L (3.5-5.1)
[2019-09-06] MEDS ORDERED: IOHEXOL 300 MG/ML 100ML VIAL. IV ONE (10:15)
[2019-09-06] MEDS ORDERED: CONTRAST GIVEN. MC PRN (10:15)
[2019-09-06] MEDS ORDERED: IV NORMAL SALINE 1000ML BAG 1,000 ML IV ONE (10:15)
[2019-09-06] MEDS ORDERED: fentaNYL PF VIAL 100 MCG/2 ML VIAL IVP ONE (10:15)
[2019-09-06 10:20] LABS: ALBUMIN 2.9 g/dL (3.4-5.0); ALBUMIN/GLOBULIN RATIO 0.9 (1.0-1.7); TOTAL BILIRUBIN 0.4 mg/dL (0.2-1.0); TOTAL PROTEIN 6.3 g/dL (6.4-8.2)
--- NOTE | 2019-09-06 10:20 | PHYS DOC ---
Past Medical History Past Medical History: Cancer, Hypertension, Hypothyroid, Other Additional Past Medical Histor: ACUTE MYELOID LEUKEMIA (2008) W/ REMISSION, ST 4 COLON CA (2017) Past Surgical History: Appendectomy, Cholecystectomy, Hysterectomy, Tonsillectomy, Other Additional Past Surgical Histo: PARTIAL THYROIDECTOMY Alcohol Use: None Drug Use: None Adult General Chief Complaint Chief Complaint: ABDOMINAL PAIN HPI HPI Patient is a 63 year old female patient with history of hypertension, hypothyroidism, AML on remission, stage IV colon cancer on chemotherapy who pr esents with complaint of abdominal pain. Patient complaining of cramping upper abdominal pain for the last 4 days with increasing episodes of loose stool without nausea and vomiting. Patient states her pain is 8/10 and did not get any pain medication. Patient states she usually gets episodes of cramping abdominal pain after chemotherapy and usually last for a short time at this time. Pain did not go away. Patient states her last chemotherapy was 10 days ago. Patient denies fever and chills, urinary symptom, chest pain and shortness of breath, focal neuro deficit. Patient complaining of generalized weakness. Review of Systems Review of Systems Constitutional: Denies fever or chills [] Eyes: Denies change in visual acuity, redness, or eye pain [] HENT: Denies nasal congestion or sore throat [] Respiratory: Denies cough or shortness of breath [] Cardiovascular: No additional information not addressed in HPI [] GI: Denies nausea, vomiting, bloody stools, reports abdominal pain and diarrhea [] : Denies dysuria or hematuria [] Musculoskeletal: Denies back pain or joint pain [] Integument: Denies rash or skin lesions [] Neurologic: Denies headache, focal weakness or sensory changes [] Endocrine: Denies polyuria or polydipsia [] All other systems were reviewed and found to be within normal limits, except as documented in this note. Current Medications Current Medications Current Medications Medications (Trade) Dose Ordered Sig/Nneka Start Time Stop Time Status Last Admin Dose Admin Fentanyl Citrate (Fentanyl 2ml Vial) 50 mcg 1X ONCE 09/06/19 10:15 09/06/19 10:21 DC 09/06/19 10:41 50 MCG Info (CONTRAST GIVEN -- Rx MONITORING) 1 each PRN DAILY PRN 09/06/19 10:15 09/08/19 10:14 Iohexol (Omnipaque 300 Mg/ml) 75 ml 1X ONCE 09/06/19 10:15 09/06/19 10:16 DC 09/06/19 10:40 75 ML Ondansetron HCl (Zofran) 4 mg 1X ONCE 09/06/19 09:45 09/06/19 09:46 DC 09/06/19 09:53 4 MG Sodium Chloride 1,000 ml @ 1,000 mls/hr 1X ONCE 09/06/19 10:15 09/06/19 11:14 DC 09/06/19 10:15 1,000 MLS/HR Allergies Allergies Allergies Coded Allergies Type Severity Reaction Last Updated Verified codeine Allergy Intermediate 01/31/19 Yes sulfamethoxazole Adverse Reaction Intermediate GI UPSET 03/01/17 Yes trimethoprim Adverse Reaction Intermediate GI UPSET 03/01/17 Yes Physical Exam Physical Exam Constitutional: Well developed, well nourished, mild distress, non-toxic appearance. [] HENT: Normocephalic, atraumatic, bilateral external ears normal, oropharynx dry, no oral exudates, nose normal. [] Eyes: PERRLA, EOMI, conjunctiva normal, no discharge. [] Neck: Normal range of motion, no tenderness, supple, no stridor. [] Cardiovascular:Heart rate regular rhythm, no murmur [] Lungs & Thorax: Bilateral breath sounds clear to auscultation [] Abdomen: Bowel sounds normal, soft, epigastric and right upper quadrant guarding, no tenderness, no masses, no pulsatile masses. [] Skin: Warm, dry, no erythema, no rash. [] Back: No tenderness, no CVA tenderness. [] Extremities: No tenderness, no cyanosis, no clubbing, ROM intact, no edema. [] Neurologic: Alert and oriented X 3, normal motor function, normal sensory function, no focal deficits noted. [] Psychologic: Affect normal, judgement normal, mood normal. [] Current Patient Data Vital Signs Vital Signs Date Time Temp Pulse Resp B/P (MAP) Pulse Ox O2 Delivery O2 Flow Rate FiO2 09/06/19 10:38 66 157/66 (96) 97 Room Air 09/06/19 09:11 98.4 18 98.4 Lab Values Laboratory Tests Test 09/06/19 09:55 09/06/19 11:30 White Blood Count 7.4 x10^3/uL (4.0-11.0) Red Blood Count 3.56 x10^6/uL (3.50-5.40) Hemoglobin 11.8 g/dL (12.0-15.5) L Hematocrit 34.7 % (36.0-47.0) L Mean Corpuscular Volume 98 fL (79-100) Mean Corpuscular Hemoglobin 33 pg (25-35) Mean Corpuscular Hemoglobin Concent 34 g/dL (31-37) Red Cell Distribution Width 16.8 % (11.5-14.5) H Platelet Count 310 x10^3/uL (140-400) Neutrophils (%) (Auto) 49 % (31-73) Lymphocytes (%) (Auto) 38 % (24-48) Monocytes (%) (Auto) 10 % (0-9) H Eosinophils (%) (Auto) 2 % (0-3) Basophils (%) (Auto) 1 % (0-3) Neutrophils # (Auto) 3.6 x10^3/uL (1.8-7.7) Lymphocytes # (Auto) 2.8 x10^3/uL (1.0-4.8) Monocytes # (Auto) 0.8 x10^3/uL (0.0-1.1) Eosinophils # (Auto) 0.1 x10^3/uL (0.0-0.7) Basophils # (Auto) 0.0 x10^3/uL (0.0-0.2) Prothrombin Time 14.0 SEC (11.7-14.0) Prothrombin Time INR 1.1 (0.8-1.1) Sodium Level 139 mmol/L (136-145) Potassium Level 3.6 mmol/L (3.5-5.1) Chloride Level 102 mmol/L (98-107) Carbon Dioxide Level 27 mmol/L (21-32) Anion Gap 10 (6-14) Blood Urea Nitrogen 24 mg/dL (7-20) H Creatinine 0.9 mg/dL (0.6-1.0) Estimated GFR (Cockcroft-Gault) 63.7 BUN/Creatinine Ratio 27 (6-20) H Glucose Level 93 mg/dL (70-99) Lactic Acid Level 1.4 mmol/L (0.4-2.0) Calcium Level 8.5 mg/dL (8.5-10.1) Total Bilirubin 0.4 mg/dL (0.2-1.0) Aspartate Amino Transferase (AST) 18 U/L (15-37) Alanine Aminotransferase (ALT) 19 U/L (14-59) Alkaline Phosphatase 58 U/L (46-116) Total Protein 6.3 g/dL (6.4-8.2) L Albumin 2.9 g/dL (3.4-5.0) L Albumin/Globulin Ratio 0.9 (1.0-1.7) L Lipase 82 U/L (73-393) Urine Collection Type Clean catch Urine Color Yellow Urine Clarity Clear Urine pH 5.0 Urine Specific [place] >=1.030 Urine Protein Negative mg/dL (NEG-TRACE) Urine Glucose (UA) Negative mg/dL (NEG) Urine Ketones (Stick) Negative mg/dL (NEG) Urine Blood Trace (NEG) Urine Nitrite Negative (NEG) Urine Bilirubin Negative (NEG) Urine Urobilinogen Dipstick 0.2 mg/dL (0.2 mg/dL) Urine Leukocyte Esterase Negative (NEG) Urine RBC 1-2 /HPF (0-2) Urine WBC 1-4 /HPF (0-4) Urine Squamous Epithelial Cells Many /LPF Urine Bacteria Moderate /HPF (0-FEW) Urine Hyaline Casts Moderate /HPF Urine Mucus Marked /LPF Laboratory Tests 09/06/19 09:55 Laboratory Tests 09/06/19 09:55 EKG EKG [] Radiology/Procedures Radiology/Procedures [][facility] [address] [place] [address] IMAGING REPORT Signed PATIENT: CATALINO COBOS [facility]: [id number] : 1955 LOCATION: ER AGE: 63 SEX: F EXAM STATUS: REG ER ORD. PHYSICIAN: GUS DOBSON MD REASON: upper abdominal pain, diarrhea x 4 days, history of colon cancer PROCEDURE: CT ABD PELV W/ IV CONTRST ONLY Exam performed: CT abdomen and pelvis with contrast HISTORY: Upper abdominal pain for 4 days with diarrhea. History of colon cancer. History of hysterectomy, tonsillectomy appendectomy, cholecystectomy and thyroidectomy DATE OF SERVICE: 09/06/2019. COMPARISON: CT abdomen and pelvis from 04/21/2019. TECHNIQUE: Contiguous helical acquisitions are obtained through the abdomen and pelvis during intravenous administration of 75 cc of Omnipaque 300. Sagittal and coronal T1 images are obtained and reviewed. FINDINGS: Lung bases are essentially clear. The visualized heart is normal. Liver is normal in size and attenuation. Small perihepatic ascites. Spleen and pancreas appear normal. Cholecystectomy both adrenal glands and bilateral kidneys are normal in size with symmetric excretion of contrast via both kidneys. Masslike thickening in the right anterior abdominal wall at the level of the rectum appear slightly increased with similar degree of omental thickening in the midline abdomen at the bifurcation from the level There is diffuse atheromatous calcification of the aorta without aneurysm. Prominent fluid-filled small and large bowel loops are identified. Postoperative changes of right hemicolectomy with ileocolic anastomosis in the left upper quadrant. The urinary bladder is partially decompressed. Trace amount of free fluid seen in the pelvis. Hysterectomy. No definite masses identified. Bones are normal. IMPRESSION: Fluid-filled mildly prominent loops of small and large bowel perhaps related to diffuse ileus pattern secondary to diarrhea. Minimal interval increase in the masslike nodularity in the anterior abdominal wall to the right of midline at the level of pelvic brim. Mild perihepatic ascites and trace free fluid. PQRS Compliance Statement: One or more of the following individualized dose reduction techniques were utilized for this examination: 1. Automated exposure control 2. Adjustment of the mA and/or kV according to patient size 3. Use of iterative reconstruction technique Electronically signed by: Chrissy Pike MD (09/06/2019 11:05 AM) [facility] DICTATED and SIGNED BY: CHRISSY PIKE MD DATE: 09/06/19 1105 Course & Med Decision Making Course & Med Decision Making Pertinent Labs and Imaging studies reviewed. (See chart for details) Evaluation of patient in ER showed 63-year-old female patient with history of colon cancer into with prepped with complaining of nausea and diarrhea and abdominal pain. Patient had a stable vital signs without fever and treated with IV fluid and fentanyl with improvement of her condition. Labs showed mild dehydration without electrolyte problem. CT abdomen and pelvis did not show acute finding. Patient tolerated oral intake. Plan discharge patient home to diagnose of dehydration and instruction to increase fluid intake. Patient has Zofran his face and prescription for [place] was given. I've spoken with the patient and/or caregivers. I've explained the patient's condition, diagnosis and treatment plan based on information available to me at this time. I've answered the patient's and/or caregivers questions and addressed any concerns. The patient and/or caregivers have a good understanding the patient's diagnosis, condition and treatment plan as can be expected at this point. Vital signs have been stabilized. The patient's condition is stable for discharge from the emergency department. The patient will pursue further outpatient evaluation with her primary care provider or other designated consulting physician as outlined in the discharge instructions. Patient and/or caregivers are agreeable to this plan of care and follow-up instructions have been explained in detail. The patient and/or caregivers have received these instructions in written format and expressed understanding of these discharge instructions. The patient and her caregivers are aware that if any significant change in condition or worsening of symptoms should prompt him to immediately return to this of the closest emergency department. If an emergent department is not readily available I would encourage him to call 911. Richard Disclaimer Dragon Disclaimer This electronic medical record was generated, in whole or in part, using a voice recognition dictation system. Departure Departure Impression: Primary Impression: Dehydration Additional Impressions: Diarrhea Abdominal pain Colon cancer Disposition: HOME, SELF-CARE (at 1154) Condition: IMPROVED Referrals: ZEHRA SMITH (PCP) Patient Instructions: Dehydration, Adult, Diarrhea, Diet for Diarrhea, Adult Additional Instructions: Drink plenty of liquids Follow-up with your primary care physician in 3-5 days Return to ER if not getting better Continue home nausea medication as needed Scripts Hydrocodone/Apap 5-325 (NORCO 5-325 TABLET) 1 Each Tablet 1 TAB PO PRN Q6HRS PRN for PAIN, #20 TAB 0 Refills Prov: GUS DOBSON MD 09/06/19 Problem Qualifiers Additional Impressions: Diarrhea Diarrhea type: unspecified type Qualified Codes: R19.7 - Diarrhea, unspecified Abdominal pain Abdominal location: upper abdomen, unspecified Qualified Codes: R10.10 - Upper abdominal pain, unspecified Colon cancer Colon location: unspecified part of colon Qualified Codes: C18.9 - Malignant neoplasm of colon, unspecified GUS DOBSON MD Sep 06, 2019 10:20
--- NOTE | 2019-09-06 11:08 | RAD ---
Exam performed: CT abdomen and pelvis with contrast HISTORY: Upper abdominal pain for 4 days with diarrhea. History of colon cancer. History of hysterectomy, tonsillectomy appendectomy, cholecystectomy and thyroidectomy DATE OF SERVICE: 09/06/2019. COMPARISON: CT abdomen and pelvis from 04/21/2019. TECHNIQUE: Contiguous helical acquisitions are obtained through the abdomen and pelvis during intravenous administration of 75 cc of Omnipaque 300. Sagittal and coronal T1 images are obtained and reviewed. FINDINGS: Lung bases are essentially clear. The visualized heart is normal. Liver is normal in size and attenuation. Small perihepatic ascites. Spleen and pancreas appear normal. Cholecystectomy both adrenal glands and bilateral kidneys are normal in size with symmetric excretion of contrast via both kidneys. Masslike thickening in the right anterior abdominal wall at the level of the rectum appear slightly increased with similar degree of omental thickening in the midline abdomen at the bifurcation from the level There is diffuse atheromatous calcification of the aorta without aneurysm. Prominent fluid-filled small and large bowel loops are identified. Postoperative changes of right hemicolectomy with ileocolic anastomosis in the left upper quadrant. The urinary bladder is partially decompressed. Trace amount of free fluid seen in the pelvis. Hysterectomy. No definite masses identified. Bones are normal. IMPRESSION: Fluid-filled mildly prominent loops of small and large bowel perhaps related to diffuse ileus pattern secondary to diarrhea. Minimal interval increase in the masslike nodularity in the anterior abdominal wall to the right of midline at the level of pelvic brim. Mild perihepatic ascites and trace free fluid. PQRS Compliance Statement: One or more of the following individualized dose reduction techniques were utilized for this examination: 1. Automated exposure control 2. Adjustment of the mA and/or kV according to patient size 3. Use of iterative reconstruction technique Electronically signed by: Chrissy Pike MD (09/06/2019 11:05 AM) [facility]
[2019-09-06 11:37] LABS: BILIRUBIN,URINE NEGATIVE (NEG); CLARITY,URINE CLEAR; COLOR,URINE YELLOW; NITRITE,URINE NEGATIVE (NEG); PROTEIN,URINE NEGATIVE (NEG-TRACE); UROBILINOGEN,URINE 0.2 mg/dL (0.2 mg/dL)
[2019-09-06 11:38] VITALS: BP 134/62
[2019-09-06 11:44] LABS: HYALINE CASTS, URINE MODERATE /HPF; SQUAMOUS EPITHELIAL CELL,UR MANY /LPF
[2019-09-06 11:45] LABS: BACTERIA,URINE MODERATE /HPF (0-FEW)
[2019-09-06] MEDS ORDERED: HYDR-3164 PO (11:57)
== END 2019-09-06 12:21 | disposition home or self-care (01) ==
LOC: ER 09:01
DX: E86.0 Dehydration (principal); R19.7 Diarrhea, unspecified; C18.9 Malignant neoplasm of colon, unspecified; I10 Essential (primary) hypertension; E03.9 Hypothyroidism, unspecified; Z90.49 Acquired absence of other specified parts of digestive tract; Z90.89 Acquired absence of other organs; Z90.710 Acquired absence of both cervix and uterus; Z88.5 Allergy status to narcotic agent; Z88.2 Allergy status to sulfonamides; Z88.1 Allergy status to other antibiotic agents; Z85.6 Personal history of leukemia
CPT/HCPCS: 36415; 74177; 80053; 81001; 83605; 83690; 85025; 85610; 87086; 96361; 96374; 96375; 96376; 99285; J2405; J3010; J7030; Q9967

== ENCOUNTER → 2019-11-23 | Outpatient (CLI) | payer MEDICAID, MEDICARE ==
[2019-10-14 11:06] VITALS: BP 168/63
[~2019-11-23] MED LIST changes: +ALBU2.5V8 NEB; +AMOX1TAB11 PO; +OSEL75CA PO
--- NOTE | 2019-11-23 18:37 | RAD ---
History: Lower and right side back pain for 3 to 4 months and right hand pain. Comparison: None. Procedure: 26.0 mCI of Tc 99m MDP was injected intravenously and delayed scintigraphic images were obtained of the skeletal system. Findings: Asymmetric linear uptake is present along the right third metacarpal. Pattern of uptake in the skeletal system is otherwise physiologic with no abnormal soft tissue uptake otherwise noted. Impression: 1. Osseous remodeling in the mid shaft right third metacarpal. Recommend correlation with hand x-rays. 2. Otherwise negative whole-body bone scan showing no specific findings to explain lower right-sided back pain over the past few months. Consider correlation with SPECT-CT imaging or plain CT or MR imaging as clinically warranted. Electronically signed by: Jose Alejandro Epstein MD (11/23/2019 6:34 PM) [facility]
== END | disposition home or self-care (01) ==
LOC: NM 09:07
PROVIDERS: ATTEND Internal Medicine Hematology & Oncology
DX: M54.5 Low back pain (principal); M79.641 Pain in right hand; M79.89 Other specified soft tissue disorders; I10 Essential (primary) hypertension; F17.200 Nicotine dependence, unspecified, uncomplicated; Z88.5 Allergy status to narcotic agent; Z79.01 Long term (current) use of anticoagulants
CPT/HCPCS: 78306; A9503

== ENCOUNTER → 2019-12-08 | Outpatient (CLI) | payer MEDICARE ==
[2019-10-14 11:06] VITALS: BP 168/63
[~2019-12-08] MED LIST changes: +IOHEXOL 240 MG/ML 50ML VIAL. PO ONE; +IOHEXOL 300 MG/ML 100ML VIAL. IV ONE
--- NOTE | 2019-12-08 16:50 | RAD ---
Examination: CT CHEST ABD PELVIS W/CONTRAST History: Malignant neoplasm of the transverse colon Comparison/Correlation: 08/09/2019 CT chest abdomen and pelvis with contrast, 09/06/2019 CT abdomen and pelvis with contrast, 10/11/2019 CTA of the chest Findings: Axial images of the chest, abdomen, and pelvis were obtained following IV and oral contrast. Sagittal and coronal reformatted images were provided. Right-sided infusion port catheter tip terminates within the superior vena cava. Left thyroid cystic structure is partially seen. No significant change. Tracheobronchial tree is unremarkable. No pneumothorax. Notable improvement in bibasilar pulmonary aeration is evident with marked decrease in infiltrates. Patchy infiltrates involving the right lung base are present. Small left base pulmonary nodule measuring 0.4 cm diameter is present. Small nodular infiltrates are present at the right lung base. Punctate nodules involving the posterior left lung base noted. Punctate nodules involving the upper lung jin are similar compared to previous exams. No new infiltrates. No enlarged thoracic lymph nodes. Central pulmonary arterial vasculature is unremarkable. Thoracic aorta morphology is unremarkable. Small amount of ascites is noted. Liver is unremarkable. Spleen is normal. Pancreas is normal. Kidneys are unremarkable. Suture material involving the left lower quadrant. Right hemicolectomy and ileocolic anastomosis are noted. No enlarged abdominal or pelvic lymph nodes. Marked calcific involvement of the abdominal aorta and iliac arteries is present. Right lower abdominal wall mass involving the suture is present measuring up to 5.1 cm transverse by 1.8 cm anteroposterior. Left periumbilical 1.5 cm diameter nodule along the superficial margin of the abdominal wall musculature is decreased in density and slightly decreased in size compared to the prior exam. Bony structures are unremarkable. Impression: Marked improvement in bibasilar pulmonary aeration. Residual patchy infiltrates and minimal pulmonary nodularity. Continued follow-up to resolution is recommended. Right lower anterior abdominal wall mass is unchanged. Small soft tissue density in the left periumbilical region about the abdominal wall is slightly decreased in density and size. Small amount of ascites is present and this is similar to the previous exam. PQRS Compliance Statement: One or more of the following individualized dose reduction techniques were utilized for this examination: 1. Automated exposure control 2. Adjustment of the mA and/or kV according to patient size 3. Use of iterative reconstruction technique Electronically signed by: Nato Bucio MD (12/08/2019 4:47 PM) [facility]
== END | disposition home or self-care (01) ==
LOC: CT 08:55
PROVIDERS: ATTEND Internal Medicine Hematology & Oncology
DX: C18.4 Malignant neoplasm of transverse colon (principal); R18.8 Other ascites; R91.1 Solitary pulmonary nodule; R91.8 Other nonspecific abnormal finding of lung field
CPT/HCPCS: 71260; 74177; Q9966; Q9967

== ENCOUNTER → 2020-06-06 | Outpatient (CLI) | payer MEDICARE, MEDICAID ==
[2019-10-14 11:06] VITALS: BP 168/63
--- NOTE | 2020-06-06 11:33 | RAD ---
EXAM: CT OF THE CHEST, ABDOMEN AND PELVIS WITH CONTRAST. HISTORY: Colon cancer. TECHNIQUE: Computed tomography of the chest, abdomen and pelvis was performed after the intravenous administration of iodinated contrast. One or more of the following individualized dose reduction techniques were utilized for this examination: 1. Automated exposure control. 2. Adjustment of the mA and/or kV according to patient size. 3. Use of iterative reconstruction technique. COMPARISON: 12/08/2019. FINDINGS: Bone windows reveal no suspicious lesions. A right-sided port catheter has its tip in the superior cavoatrial junction. There are no pathologically enlarged mediastinal or axillary lymph nodes. There is no pleural or pericardial effusion. The heart is not enlarged. There are atherosclerotic calcifications of the coronary arteries. A cystic-appearing nodule within the left thyroid lobe measures 3.9 x 3.0 cm and appears stable. There is mild paraseptal and centrilobular emphysema in the apices. Scattered sub-4 mm nodules such as seen on image 29 in the left upper lobe are stable and likely benign. A mass within the musculature of the anterior abdominal wall just to the right of the umbilicus measures 5.7 x 2.3 cm, not clearly changed. Another in the supraumbilical midline measures 1.9 x 1.3 cm and is slightly increased from 1.6 cm previously. Moderate ascites appears increased. There is some nodularity in the omentum in the left upper quadrant and right paracolic gutter consistent with metastatic disease. There are no focal hepatic lesions. The gallbladder is surgically absent. The spleen, adrenal glands and left kidney are unremarkable. There is cortical scarring at the right renal lower pole. A 3 mm calculus is noted in the right renal lower pole. Calcifications along the pancreatic head suggests chronic pancreatitis. There are diffuse dense atherosclerotic calcifications. The uterus is surgically absent. Changes of right colectomy are noted. There is no small bowel obstruction. There are no pathologically enlarged lymph nodes. IMPRESSION: 1. Abdominal wall mass just superior to the umbilicus appears slightly increased. Another along the right periumbilical region is not clearly changed. 2. Moderate ascites has increased. Suspected peritoneal metastatic disease appears slightly increased. Electronically signed by: Chivo Bass MD (06/06/2020 11:31 AM) [id number]
== END | disposition home or self-care (01) ==
LOC: CT 10:24
PROVIDERS: ATTEND Internal Medicine Hematology & Oncology
DX: C18.4 Malignant neoplasm of transverse colon (principal); I25.10 Atherosclerotic heart disease of native coronary artery without angina pectoris; E04.1 Nontoxic single thyroid nodule; K86.1 Other chronic pancreatitis; J43.2 Centrilobular emphysema; R91.1 Solitary pulmonary nodule; R19.09 Other intra-abdominal and pelvic swelling, mass and lump; Z90.49 Acquired absence of other specified parts of digestive tract; Z90.710 Acquired absence of both cervix and uterus
CPT/HCPCS: 71260; 74177; Q9966; Q9967

== ENCOUNTER 2020-07-29 13:24 | Emergency (ER) | payer MEDICARE, MEDICAID ==
[~2020-07-29] VITALS: Ht 162.6 cm; Wt 55.0 kg
[~2020-07-29 13:24] MED LIST changes: -IOHEXOL 240 MG/ML 50ML VIAL. PO ONE; -IOHEXOL 300 MG/ML 100ML VIAL. IV ONE
[2020-07-29] MEDS ORDERED: 0.9 % SOD CHL for STERILE FIELD 10 ML DISP.SYRIN. ONE (13:32)
[2020-07-29] MEDS ORDERED: IV NORMAL SALINE 1000ML BAG 1,000 ML IV ONE (13:45)
[2020-07-29 14:11] LABS: BASO # 0.1 x10^3/uL (0.0-0.2); BASO % 1 % (0-3); EOS # 0.1 x10^3/uL (0.0-0.7); EOS % 2 % (0-3); HEMATOCRIT 35.4 % (36.0-47.0); HEMOGLOBIN 12.1 g/dL (12.0-15.5); LYMPH # 3.5 x10^3/uL (1.0-4.8); LYMPH % 48 % (24-48); MEAN CORPUSCULAR HEMOGLOBIN 32 pg (25-35); MEAN CORPUSCULAR HGB CONC 34 g/dL (31-37); MEAN CORPUSCULAR VOLUME 93 fL (79-100); MONO # 0.7 x10^3/uL (0.0-1.1); MONO % 10 % (0-9); NEUT # 2.9 x10^3/uL (1.8-7.7); NEUT % 40 % (31-73); PLATELET COUNT 354 x10^3/uL (140-400); RED BLOOD COUNT 3.83 x10^6/uL (3.50-5.40); RED CELL DISTRIBUTION WIDTH 17.8 % (11.5-14.5); WHITE BLOOD COUNT 7.2 x10^3/uL (4.0-11.0)
[2020-07-29 14:22] LABS: CALCIUM 9.2 mg/dL (8.5-10.1); CREATININE 1.3 mg/dL (0.6-1.0); GFR 41.5; POTASSIUM 3.6 mmol/L (3.5-5.1)
[2020-07-29 14:30] LABS: ALBUMIN 2.9 g/dL (3.4-5.0); ALBUMIN/GLOBULIN RATIO 0.8 (1.0-1.7); MAGNESIUM 1.5 mg/dL (1.8-2.4); TOTAL BILIRUBIN 0.2 mg/dL (0.2-1.0); TOTAL PROTEIN 6.6 g/dL (6.4-8.2)
--- NOTE | 2020-07-29 14:31 | PHYS DOC ---
Past Medical History Past Medical History: Anxiety, Cancer, DVT, Hypertension, Hypothyroid Additional Past Medical Histor: COLON CA Past Surgical History: Other Additional Past Surgical Histo: COLON Smoking Status: Current Every Day Smoker Alcohol Use: None Drug Use: None General Adult EDM: Chief Complaint: SHORTNESS OF BREATH HPI: HPI: History obtained from patient and sister. Patient is a 62-year-old female with a history of colon cancer status post resection several years ago currently receiving chemotherapy, hypertension, hypothyroidism, anxiety who presents with chief complaint of acute onset shortness of breath that began 1 hour ago. She states it was difficult for her to catch her breath. She states this did occur once a year ago and was told it is anxiety. States today's symptoms feel different. She denies cough or fever. Denies syncope. Denies any chest pain. Denies history of blood clot in the lungs. Does note history of blood clot in the legs. Does take Eliquis daily and states she has not missed any of her home medications. Does not use oxygen at baseline. Denies any new abdominal pain or vomiting. Denies any back pain. Denies any history of coronary artery disease or invasive cardiac testing. No other complaints. Review of Systems: Review of Systems: Constitutional: Denies fever or chills. [] Eyes: Denies change in visual acuity. [] HENT: Denies nasal congestion or sore throat. [] Respiratory: Positive for shortness of breath Cardiovascular: Denies chest pain or edema. [] GI: Denies abdominal pain, nausea, vomiting, bloody stools or diarrhea. [] : Denies dysuria. [] Musculoskeletal: Denies back pain or joint pain. [] Integument: Denies rash. [] Neurologic: Denies headache, focal weakness or sensory changes. [] Endocrine: Denies polyuria or polydipsia. [] Lymphatic: Denies swollen glands. [] Psychiatric: Denies depression or anxiety. [] Heart Score: HEART Score for Chest Pain: HEART Score for Chest Pain Response (Comments) Value History Slighlty/Non-Suspicious 0 ECG Nonspecific Repolarizatio 1 Age >45 - < 65 1 Risk Factors 1 or 2 Risk Factors 1 Troponin < Normal Limit 0 Total 3 Risk Factors: Risk Factors: DM, Current or recent (<one month) smoker, HTN, HLP, family history of CAD, obesity. Risk Scores: Score 0 - 3: 2.5% MACE over next 6 weeks - Discharge Home Score 4 - 6: 20.3% MACE over next 6 weeks - Admit for Clinical Observation Score 7 - 10: 72.7% MACE over next 6 weeks - Early Invasive Strategies Current Medications: Current Medications Medications (Trade) Dose Ordered Sig/Nneka Start Time Stop Time Status Last Admin Dose Admin Sodium Chloride 1,000 ml @ 500 mls/hr 1X ONCE 07/29/20 13:45 07/29/20 15:44 07/29/20 13:52 500 MLS/HR Sodium Chloride (NORMAL SALINE FLUSH for STERILE FIELD) 10 ml STK-MED ONCE 07/29/20 13:32 07/29/20 13:32 DC Allergies: Allergies: Allergies Coded Allergies Type Severity Reaction Last Updated Verified codeine Allergy Intermediate 10/11/19 Yes amoxicillin Allergy Unknown 07/29/20 Yes clavulanic acid Allergy Unknown 07/29/20 Yes sulfamethoxazole Adverse Reaction Intermediate GI UPSET 03/01/17 Yes trimethoprim Adverse Reaction Intermediate GI UPSET 03/01/17 Yes Physical Exam: PE: Constitutional: Well developed, well nourished, no acute distress, non-toxic appearance. [] HENT: Normocephalic, atraumatic, bilateral external ears normal, oropharynx moist, no oral exudates, nose normal. [] Eyes: PERRLA, EOMI, conjunctiva normal, no discharge. [] Neck: Normal range of motion, no tenderness, supple, no stridor. [] Cardiovascular:Heart rate regular rhythm, no murmur [] Lungs & Thorax: Bilateral breath sounds clear to auscultation [] Abdomen: Bowel sounds normal, soft, no tenderness, no masses, no pulsatile masses. [] Skin: Warm, dry, no erythema, no rash. [] Back: No tenderness, no CVA tenderness. [] Extremities: No tenderness, no cyanosis, no clubbing, ROM intact, no edema. [] Neurologic: Alert and oriented X 3, normal motor function, normal sensory functi on, no focal deficits noted. [] Psychologic: Affect normal, judgement normal, mood normal. [] Current Patient Data: Labs: Laboratory Tests Test 07/29/20 14:00 White Blood Count 7.2 x10^3/uL (4.0-11.0) Red Blood Count 3.83 x10^6/uL (3.50-5.40) Hemoglobin 12.1 g/dL (12.0-15.5) Hematocrit 35.4 % (36.0-47.0) L Mean Corpuscular Volume 93 fL (79-100) Mean Corpuscular Hemoglobin 32 pg (25-35) Mean Corpuscular Hemoglobin Concent 34 g/dL (31-37) Red Cell Distribution Width 17.8 % (11.5-14.5) H Platelet Count 354 x10^3/uL (140-400) Neutrophils (%) (Auto) 40 % (31-73) Lymphocytes (%) (Auto) 48 % (24-48) Monocytes (%) (Auto) 10 % (0-9) H Eosinophils (%) (Auto) 2 % (0-3) Basophils (%) (Auto) 1 % (0-3) Neutrophils # (Auto) 2.9 x10^3/uL (1.8-7.7) Lymphocytes # (Auto) 3.5 x10^3/uL (1.0-4.8) Monocytes # (Auto) 0.7 x10^3/uL (0.0-1.1) Eosinophils # (Auto) 0.1 x10^3/uL (0.0-0.7) Basophils # (Auto) 0.1 x10^3/uL (0.0-0.2) Sodium Level 135 mmol/L (136-145) L Potassium Level 3.6 mmol/L (3.5-5.1) Chloride Level 98 mmol/L (98-107) Carbon Dioxide Level 28 mmol/L (21-32) Anion Gap 9 (6-14) Blood Urea Nitrogen 27 mg/dL (7-20) H Creatinine 1.3 mg/dL (0.6-1.0) H Estimated GFR (Cockcroft-Gault) 41.5 BUN/Creatinine Ratio 21 (6-20) H Glucose Level 144 mg/dL (70-99) H Calcium Level 9.2 mg/dL (8.5-10.1) Magnesium Level Pending Total Bilirubin Pending Aspartate Amino Transferase (AST) Pending Alanine Aminotransferase (ALT) Pending Alkaline Phosphatase Pending Total Protein Pending Albumin Pending Albumin/Globulin Ratio Pending Laboratory Tests 07/29/20 14:00 Laboratory Tests 07/29/20 14:00 Vital Signs: Vital Signs Date Time Temp Pulse Resp B/P (MAP) Pulse Ox O2 Delivery O2 Flow Rate FiO2 07/29/20 13:25 98.2 142 24 100/62 (75) 96 Room Air 98.2 EKG: EKG: [] EKG consistent with tachycardia. P waves difficult to ascertain. Ventricular rate of 144 bpm. Rhythm does appear regular. ST depression noted diffusely. No ST segment elevation appreciated. Radiology/Procedures: Radiology/Procedures: [facility] [address] [address] IMAGING REPORT Signed PATIENT: CATALINO COBOSOUNT: [id number] : 1955 LOCATION: ER AGE: 64 SEX: F EXAM STATUS: REG ER ORD. PHYSICIAN: CIARAN OLIVERA DO REASON: SOB and hx coclon CA. concern for PE PROCEDURE: CT ANGIOGRAPHY CHEST CTA chest with contrast dated 07/29/2020. No comparison available. CLINICAL INDICATION: Shortness of breath. Colon cancer. TECHNIQUE: Contiguous axial imaging of the chest performed following intravenous and demonstration of 75 cc Omnipaque 350. Study was performed as dedicated PE protocol with thin cut coronal MIPS 3-D reconstruction. One or more of the following individualized dose reduction techniques were utilized for this examination: 1. Automated exposure control 2. Adjustment of the mA and/or kV according to patient size 3. Use of iterative reconstruction technique. FINDINGS: Contrast bolus is adequate. No evidence of central, lobar or segmental pulmonary embolus. Subsegmental branches are not well evaluated based on technique. Heart size is upper limits of normal. There is a small pericardial effusion. Scattered coronary calcifications. No mediastinal, hilar or axillary lymphadenopathy. Large low-density focus of the left lobe thyroid gland measures up to 4.3 cm, unchanged. Central airways are patent. There is mild to moderate emphysema. There are couple of tiny subpleural nodule in the lateral aspect of the right upper lobe that measure 2 to 3 mm in size, unchanged. Groundglass density in the right lower lobe, lingula and right middle lobe, likely atelectasis. No consolidation or pleural effusion. There is mild diffuse bronchial wall thickening. Images of the upper abdomen show small to moderate amount of ascites. Liver is homogeneous. Bone windows show no acute findings. Mild multilevel spondylosis. IMPRESSION: 1. No evidence of central, lobar or segmental pulmonary embolus. 2. Emphysema with mild diffuse bronchial wall thickening. 3. There are a few tiny subpleural nodule in the right upper lobe, nonspecific but unchanged. 4. Small to moderate amount of ascites. 5. Tiny pericardial effusion. Electronically signed by: Ciro Arndt MD (07/29/2020 3:09 PM) [facility] [place] DICTATED and SIGNED BY: CIRO ARNDT MD DATE: 07/29/20 1509 [] Course & Med Decision Making: Course & Med Decision Making Pertinent Labs and Imaging studies reviewed. (See chart for details) [] Patient is a 64-year-old female who presents with a chief complaint of sudden onset chest pain 1 hour prior to arrival. She does note a history of anxiety but states this feels slightly different. Initial heart rate notable for sinus tachycardia at a rate of 142. No acute ischemic changes appreciated. Given her history of colon cancer CT PE study was obtained reveals no acute pulmonary emboli. Troponin negative. BNP normal. She does have mild elevation of her creatinine and lactate of 3.2. She was given fluids. On repeat examination she states her symptoms have resolved. Her heart rate is now normal sinus rhythm with a rate of 72. I did recommend staying for repeat troponin and lactic acid . Patient states she would prefer to be discharged home. Overall I do have low suspicion for ACS however I cannot fully exclude this without repeat troponin testing. Patient does understand this. Sister at bedside states she will watch her closely at home. She was encouraged to continue appropriate fluid intake at home. She was instructed to follow-up with her primary care physician in the next 1-2 business days. Strict return precautions were disc ussed and understood. She is stable for discharge home. Richard Disclaimer: Richard Disclaimer: This electronic medical record was generated, in whole or in part, using a voice recognition dictation system. Departure Departure Impression: Primary Impression: Chest pain Qualified Codes: R07.9 - Chest pain, unspecified Disposition: 01 DC HOME SELF CARE/HOMELESS Condition: STABLE Referrals: ZEHRA SMITH (PCP) Patient Instructions: Chest Pain (Nonspecific), Dehydration, Adult Additional Instructions: Please follow-up with your primary care physician in the next 1-2 business days. CIARAN OLIVERA DO Jul 29, 2020 14:31
[2020-07-29] MEDS ORDERED: CONTRAST GIVEN. MC PRN (14:45)
[2020-07-29] MEDS ORDERED: IOHEXOL 300 MG/ML 100ML VIAL. IV ONE (14:45)
[2020-07-29 14:54] VITALS: BP 116/57
[2020-07-29] MEDS ORDERED: IOHEXOL 350 MG/ML 100 ML VIAL. IV ONE (15:00)
--- NOTE | 2020-07-29 15:12 | RAD ---
CTA chest with contrast dated 07/29/2020. No comparison available. CLINICAL INDICATION: Shortness of breath. Colon cancer. TECHNIQUE: Contiguous axial imaging of the chest performed following intravenous and demonstration of 75 cc Omnipaque 350. Study was performed as dedicated PE protocol with thin cut coronal MIPS 3-D reconstruction. One or more of the following individualized dose reduction techniques were utilized for this examination: 1. Automated exposure control 2. Adjustment of the mA and/or kV according to patient size 3. Use of iterative reconstruction technique. FINDINGS: Contrast bolus is adequate. No evidence of central, lobar or segmental pulmonary embolus. Subsegmental branches are not well evaluated based on technique. Heart size is upper limits of normal. There is a small pericardial effusion. Scattered coronary calcifications. No mediastinal, hilar or axillary lymphadenopathy. Large low-density focus of the left lobe thyroid gland measures up to 4.3 cm, unchanged. Central airways are patent. There is mild to moderate emphysema. There are couple of tiny subpleural nodule in the lateral aspect of the right upper lobe that measure 2 to 3 mm in size, unchanged. Groundglass density in the right lower lobe, lingula and right middle lobe, likely atelectasis. No consolidation or pleural effusion. There is mild diffuse bronchial wall thickening. Images of the upper abdomen show small to moderate amount of ascites. Liver is homogeneous. Bone windows show no acute findings. Mild multilevel spondylosis. IMPRESSION: 1. No evidence of central, lobar or segmental pulmonary embolus. 2. Emphysema with mild diffuse bronchial wall thickening. 3. There are a few tiny subpleural nodule in the right upper lobe, nonspecific but unchanged. 4. Small to moderate amount of ascites. 5. Tiny pericardial effusion. Electronically signed by: Ciro Arndt MD (07/29/2020 3:09 PM) [facility]
[2020-07-29] MEDS ORDERED: HEPARIN PF 500 UNIT/5 ML DISP.SYRIN. IVP ONE (16:30)
--- NOTE | 2020-07-29 19:09 | EKG ---
[facility] [address] [place] [address] Test Date: 2020-07-29 Test Time: 13:34:25 Pat Name: CATALINO COBOS Department: Room: Gender: F [employer]: : 1955 Requested By: CIARAN OLIVERA Order Number: [id number] Reading MD: Measurements Intervals Adrian Rate: 144 P: -90 NC: 114 QRS: 45 QRSD: 86 T: 68 QT: 296 QTc: 463 Interpretive Statements SINUS TACHYCARDIA ST ABNORMALITY, POSSIBLE ANTERIOR SUBENDOCARDIAL INJURY INFERIOR SUBENDOCARDIAL INJURY ABNORMAL ECG RI6.01 No previous ECG available for comparison
== END 2020-07-29 16:48 | disposition home or self-care (01) ==
LOC: ER 13:24
DX: R07.89 Other chest pain (principal); R06.02 Shortness of breath; F41.9 Anxiety disorder, unspecified; E03.9 Hypothyroidism, unspecified; I10 Essential (primary) hypertension; F17.200 Nicotine dependence, unspecified, uncomplicated; Z98.890 Other specified postprocedural states; Z85.038 Personal history of other malignant neoplasm of large intestine; Z86.718 Personal history of other venous thrombosis and embolism; Z88.5 Allergy status to narcotic agent; Z88.1 Allergy status to other antibiotic agents; Z88.2 Allergy status to sulfonamides; Z88.8 Allergy status to other drugs, medicaments and biological substances
CPT/HCPCS: 36415; 71275; 80053; 83605; 83735; 83880; 84484; 85025; 93005; 96361; 96374; 99285; J1642; J7030; Q9967